=== PATIENT | male | born 1965 | race Caucasian/White ===

== ENCOUNTER 2016-11-03 03:30 | Inpatient (IN) ==
[2016-11-03 04:03] LABS: Basophils # 0.1 K/mcL (0.0-0.2); Basophils % 0.6 %; Eosinophils # 0.4 K/mcL (0.0-0.6); Eosinophils % 4.3 %; Hematocrit 32.7 % (37.5-50.1); Hemoglobin 10.5 g/dL (12.9-16.9); Immature Granulocytes % 0.5 % (0-4); Lymphocytes # 4.4 K/mcL (0.6-4.6); Lymphocytes % 45.8 %; Mean Corpuscular HGB Conc 32.1 g/dL (31.6-35.5); Mean Corpuscular Hemoglobin 29.7 pg (28.0-33.3); Mean Corpuscular Volume 92.4 fL (83.0-100.0); Mean Platelet Volume 9.4 fL (9.4-12.4); Monocytes # 0.6 K/mcL (0.0-1.3); Monocytes % 6.1 %; Neutrophils # 4.1 K/mcL (1.6-8.9); Platelet Count 375 K/mcL (140-400); Red Blood Count 3.54 M/mcL (4.19-5.50); Red Cell Distribution Width 14.6 % (11.5-14.5); Segmented Neutrophils % 42.7 %
--- NOTE | 2016-11-03 04:04 | Emergency Department Note ---
Disposition Clinical Impression: Acute on chronic respiratory failure Qualifiers: Respiratory failure complication: hypoxia and hypercapnia Qualified Code(s): J96.21 - Acute and chronic respiratory failure with hypoxia Disposition: Admitted As Inpatient SOB HPI - General Chief Complaint: ED Shortness of Breath/Dyspnea Stated Complaint: ANNETTA Time Seen by Provider: 11/03/16 03:48 Source: EMS Nursing Notes Reviewed: Yes Vital Signs Reviewed: Yes - History of Present Illness Mr. Castro, a 51yo male, presents from home via EMS with chief complaint difficulty breathing. Patient has known history of end-stage renal disease on dialysis scheduled MWF, COPD, CHF. Patient missed his Friday dialysis session. States his difficulty breathing began Friday and rapidly progressed to his presentation today. Patient denies any other symptoms, concerns, or complaints at this time. Denies fever, chills, unusual cough, chest pain, palpitations, abdominal pain, changes in bowel or bladder. He does not measure his weight daily but has not noticed any increase in swelling. PMH: Stage renal disease on dialysis schedule Friday, Friday, Friday; still produces urine. CHF with EF 45-50%. CAD with severe three-vessel disease; was recommended to follow up with [facility] which he is not done. History of chronically elevated troponin. Hypertension. 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 - Related Data Home Medications Medication Instructions Recorded Confirmed Albuterol Neb [Proventil Neb] 2.5 mg IH TID PRN 10/02/15 08/22/16 Albuterol Sulfate [Proair 2 puff IH Q4H PRN 10/02/15 08/22/16 Respiclick] Calcitriol [Rocaltrol] 0.25 mcg PO DAILY 10/02/15 08/22/16 Citalopram [CeleXA] 40 mg PO DAILY 10/02/15 08/22/16 Ferrous Sulfate 325 mg PO DAILY 10/02/15 10/04/16 Fluticasone Propionate Nasal 50 mcg NS BID 10/02/15 10/04/16 [Flonase] Fluticasone/Salmeterol [Advair 1 each IH BID 10/02/15 10/04/16 250-50 Diskus] Furosemide [Lasix] 40 mg PO BID 10/02/15 10/04/16 Hydroxyzine HCl 25 mg PO TID 10/02/15 08/22/16 Lidocaine Patch [Lidoderm 5% patch] 1 each TP PRN PRN 10/02/15 10/04/16 Metolazone [Zaroxolyn] 2.5 mg PO DAILY 10/02/15 08/22/16 Venlafaxine XR (24 HR) [Effexor XR] 150 mg PO DAILY 10/02/15 08/22/16 Aspirin 325 mg PO DAILY 10/04/16 10/04/16 Ferrous Sulfate [Iron] 325 mg PO DAILY 10/04/16 10/04/16 Gabapentin [Neurontin] 800 mg PO TID 10/04/16 10/04/16 Previous Rx's Medication Instructions Recorded Sevelamer [Renvela] 2,400 mg PO TIDWM #90 tablet 08/30/16 Atorvastatin [Lipitor] 80 mg PO HS #30 tablet 09/03/16 Carvedilol [Coreg] 12.5 mg PO BIDWM #60 tablet 09/03/16 HydrALAZINE 75 mg PO Q8HR #30 tablet 09/03/16 Isosorbide MONOnitrate (24 HR) 30 mg PO DAILY #30 tab.er.24h 09/03/16 [Imdur] Allergies Allergy/AdvReac Type Severity Reaction Status Date / Time prednisone AdvReac Vomiting Verified 10/04/16 08:30 All systems ED: reviewed and negative except as stated. Constitutional: Denies: fever, chills, weakness ENT ED: Denies: throat pain, congestion Cardiovascular: Reports: dyspnea on exertion. Denies: chest pain, palpitations , edema, syncope Respiratory: Reports: cough, dyspnea. Denies: wheezes, hemoptysis, stridor Gastrointestinal: Denies: abdominal pain, nausea, vomiting, diarrhea, constipation, hematemesis, melena, hematochezia Neurological: Denies: headache, weakness, numbness, paresthesias, confusion Past Medical History - Past Medical History Medical history: Reports: CHF, COPD, hyperlipidemia, hypertension, renal disease , other Surgical history: Reports: non-contributory Psychiatric history: Reports: bipolar - Social History Smoking Status: Current every day smoker Smokeless Tobacco Status: Yes Alcohol use: Reports: occasionally Drug use: Reports: marijuana Physical Exam General: Patient is alert, oriented, and in acute respiratory distress. Patient appears older than stated age. HEENT: No facial asymmetry. Head is normocephalic and atraumatic. Trachea midline. Cardiovascular: Heart regular rate and rhythm without clicks, rubs, gallops, or murmurs. No JVD. PMI nondisplaced. Respiratory: On BiPAP-Symmetric chest rise with good respiratory effort. Bilateral breath sounds have scattered wheezing without rhonchi or rales. Abdomen: Bowel sounds present normoactive x-4 quadrants. Abdomen is soft, nondistended, and nontender. No organomegaly noted. Psych: Patient's affect is appropriate for situation. - General General appearance: in distress Course Course Narrative: On arrival, the patient was on nonrebreather interests for his stress as evidenced by him being diaphoretic with use of accessory muscles. Respiratory was paged and is placed on BiPAP with subsequent improvement in symptoms. He was recently admitted 10/04 for dyspnea secondary to missed dialysis, managed with BiPAP and dialysis, discharged 10/07. Per nursing, he was recently intubated. Per respiratory therapy, he typically pulls through on BiPAP without the need for intubation. Vital Signs Temperature 94.7 F L 11/03/16 03:36 Pulse Rate 139 11/03/16 03:36 Respiratory Rate 30 11/03/16 03:36 Blood Pressure 201/113 11/03/16 03:36 O2 Sat by Pulse Oximetry 93 L 11/03/16 03:36 Temperature 94.7 F L 11/03/16 03:36 Pulse Rate 84 11/03/16 05:16 Respiratory Rate 20 11/03/16 05:52 Blood Pressure 147/90 11/03/16 05:52 O2 Sat by Pulse Oximetry 98 11/03/16 06:31 Oxygen Delivery Oxygen Delivery Bipap Shortness of Breath/Dyspnea - Medical Records Medical records reviewed: Yes I reviewed the patient's medical records. - Lab Data Lab results reviewed: Yes I reviewed the patient's lab results. Result diagrams: 11/03/16 03:46 11/03/16 03:46 Lab Results 11/03/16 11/03/16 11/03/16 Range/Units 03:46 03:46 03:46 WBC 9.6 (4.3-11.1) K/mcL RBC 3.54 L (4.19-5.50) M/mcL Hgb 10.5 L (12.9-16.9) g/dL Hct 32.7 L (37.5-50.1) % MCV 92.4 (83.0-100.0) fL MCH 29.7 (28.0-33.3) pg MCHC 32.1 (31.6-35.5) g/dL RDW 14.6 H (11.5-14.5) % Plt Count 375 (140-400) K/mcL MPV 9.4 (9.4-12.4) fL Immature Gran % 0.5 (0-4) % Seg Neutrophils % 42.7 % Lymphocytes % 45.8 % Monocytes % 6.1 % Eosinophils % 4.3 % Basophils % 0.6 % Neutrophils # 4.1 (1.6-8.9) K/mcL Lymphocytes # 4.4 (0.6-4.6) K/mcL Monocytes # 0.6 (0.0-1.3) K/mcL Eosinophils # 0.4 (0.0-0.6) K/mcL Basophils # 0.1 (0.0-0.2) K/mcL ABG pH (7.32-7.45) pH Units ABG pCO2 (35-45) mmHg ABG pO2 (85-104) mmHg ABG HCO3 (21-27) mEQ/L ABG Total CO2 (20-26) mEq/L ABG O2 Saturation (95-98) % ABG Base Excess (-2.0 to 3.0) mEq/L Blood Gas Modality Inspired O2 % Inspiratory BiPAP cm H2O Expiratory BiPAP cm H2O Sodium 134 L (136-145) mEq/L Potassium 4.3 (3.5-4.5) mEq/L Chloride 100 (98-109) mEq/L Carbon Dioxide 20 (19-29) mEq/L BUN 32 H (8-26) mg/dL Creatinine 3.68 H (0.72-1.25) mg/dL Est GFR ( Amer) 21 L (> 60) Est GFR (Non-Af Amer) 18 L (> 60) BUN/Creatinine Ratio 9 (6-26) Glucose 155 H (70-99) mg/dL POC Glucose (58-89) Calculated Osmolality 288 (280-300) Calcium 8.9 (8.6-10.8) mg/dL Troponin I 0.04 H* (0-0.03) ng/mL B-Natriuretic Peptide (0-100) pg/mL 11/03/16 11/03/16 11/03/16 Range/Units 03:46 03:57 04:55 WBC (4.3-11.1) K/mcL RBC (4.19-5.50) M/mcL Hgb (12.9-16.9) g/dL Hct (37.5-50.1) % MCV (83.0-100.0) fL MCH (28.0-33.3) pg MCHC (31.6-35.5) g/dL RDW (11.5-14.5) % Plt Count (140-400) K/mcL MPV (9.4-12.4) fL Immature Gran % (0-4) % Seg Neutrophils % % Lymphocytes % % Monocytes % % Eosinophils % % Basophils % % Neutrophils # (1.6-8.9) K/mcL Lymphocytes # (0.6-4.6) K/mcL Monocytes # (0.0-1.3) K/mcL Eosinophils # (0.0-0.6) K/mcL Basophils # (0.0-0.2) K/mcL ABG pH 7.34 (7.32-7.45) pH Units ABG pCO2 43 (35-45) mmHg ABG pO2 55 L (85-104) mmHg ABG HCO3 23.2 (21-27) mEQ/L ABG Total CO2 24.5 (20-26) mEq/L ABG O2 Saturation 86 L (95-98) % ABG Base Excess -2.6 L (-2.0 to 3.0) mEq/L Blood Gas Modality [id number] Inspired O2 40.0 % Inspiratory BiPAP 14.0 cm H2O Expiratory BiPAP 7.0 cm H2O Sodium (136-145) mEq/L Potassium (3.5-4.5) mEq/L Chloride (98-109) mEq/L Carbon Dioxide (19-29) mEq/L BUN (8-26) mg/dL Creatinine (0.72-1.25) mg/dL Est GFR ( Amer) (> 60) Est GFR (Non-Af Amer) (> 60) BUN/Creatinine Ratio (6-26) Glucose (70-99) mg/dL POC Glucose 97 H (58-89) Calculated Osmolality (280-300) Calcium (8.6-10.8) mg/dL Troponin I (0-0.03) ng/mL B-Natriuretic Peptide 1393 H (0-100) pg/mL - EKG Data EKG attestation: Yes I reviewed and interpreted this EKG. EKG results narrative: EKG dated 11/03/16 at 03:41 showing sinus tachycardia with a rate of 110. Normal intervals. Normal axis. Nonspecific ST-T changes. Compared to previous dated 10/04/2016 at 04:04 which shows atrial fibrillation with RVR; rate of 144. Unable to compare for any ischemic changes. Critical Care Time Critical Care Time: Yes Total Critical Care Time: 35 Attestation: Critical care performed: Time is exclusive of separately billable procedures. Time includes: direct patient care, patient reassessment, coordination of patient care, interpretation of data (laboratory data, radiology data, and respiratory data), review of patient's medical records, medical consultation and documentation of patient care. Procedures included in critical care time: Procedures excluded from critical care time: Attestation Statement - Attestation Attestation: I, Chava Erazo MD, personally performed a history and physical exam of the patient and discussed their management with the resident. I reviewed the resident's note and agree with the documented findings, medical decision making , and plan of care. 51-year-old male presents to the emergency department by an illness with severe respiratory distress. Patient has history of end-stage renal disease and is on hemodialysis. He has been seen here previously with similar episodes of acute respiratory distress and respiratory failure. Patient arrived on a nonrebreather mask with oxygen saturations in the area. He is diaphoretic. On examination patient is a well-developed well-nourished male in severe respiratory distress. He is pale and diaphoretic. He is alert. Breast sounds are markedly decreased bilaterally with diffuse bilateral rales. Some late expiratory wheezes. Heart tachycardic and regular. Abdomen soft with normal bowel sounds. In the emergency department the patient was immediately placed on BiPAP with improvement in his symptoms. Labs reviewed. Chest x-ray showed mild pulmonary edema. The hospitalist, Dr. Rosario, was consulted and accepted admission of the patient.
[2016-11-03 04:17] LABS: Calcium 8.9 mg/dL (8.6-10.8); Potassium 4.3 mEq/L (3.5-4.5)
[2016-11-03 04:21] LABS: ABG Base Excess -2.6 mEq/L (-2.0 to 3.0); ABG HCO3 23.2 mEQ/L (21-27); ABG Oxygen Saturation 86 % (95-98); ABG PCO2 43 mmHg (35-45); ABG PH 7.34 pH Units (7.32-7.45); ABG PO2 55 mmHg (85-104); ABG TCO2 24.5 mEq/L (20-26)
[2016-11-03] MEDS ORDERED: Ondansetron 4 MG/2 ML VIAL IVP PRN (06:19)
[2016-11-03] MEDS ORDERED: Acetaminophen 325 MG TABLET PO PRN (06:19)
[2016-11-03] MEDS ORDERED: Naloxone 0.4 MG/ML INJ IVP PRN (06:19)
[2016-11-03] MEDS ORDERED: *HR* Morphine 2 MG/ML SYRINGE IVP PRN (06:19)
[2016-11-03] MEDS ORDERED: Benzonatate 100 MG CAPSULE PO PRN (06:28)
[2016-11-03] MEDS ORDERED: Albuterol 2.5 MG/3 ML NEBULIZER IH PRN (06:28)
[2016-11-03] MEDS ORDERED: methylPREDNISolone 125 MG/2 ML VIAL IVP STA (06:28)
--- NOTE | 2016-11-03 06:40 | Internal Med History&Physical ---
Date of Encounter: 11/03/16 Time of Encounter: 06:00 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 Plan (1) Acute exacerbation of chronic obstructive pulmonary disease (COPD) Current visit: Yes Status: Acute . (2) Toxic metabolic encephalopathy Current visit: Yes Status: Acute . (3) Delirium due to conditions classified elsewhere Current visit: Yes Status: Acute . (4) Accelerated hypertension Current visit: Yes Status: Acute . (5) Ischemia due to increased oxygen demand Current visit: Yes Status: Acute . (6) Demand ischemia of myocardium Current visit: Yes Status: Acute . (7) Non-ST elevation myocardial infarction (NSTEMI) due to mismatch of myocardial oxygen supply and demand Current visit: Yes Status: Acute . (8) Acute on chronic respiratory failure with hypoxia and hypercapnia Current visit: Yes Status: Acute . (9) Elevated troponin I level Current visit: Yes Status: Acute . (10) Hypoalbuminemia Current visit: Yes Status: Chronic . (11) Physical deconditioning Current visit: Yes Status: Chronic . (12) Pleural effusion Current visit: Yes Status: Chronic (13) Systolic CHF, acute on chronic Current visit: Yes Status: Acute . (14) Anemia in chronic kidney disease Current visit: Yes Status: Chronic . (15) CAD (coronary artery disease) Current visit: Yes Status: Chronic . Qualifiers: Coronary Disease-Associated Artery/Lesion type: [place] artery [place] vs. transplanted heart: [place] heart Associated angina: angina presence unspecified Qualified Code(s): I25.10 - Atherosclerotic heart disease of [place] coronary artery without angina pectoris (16) COPD (chronic obstructive pulmonary disease) Current visit: Yes Status: Chronic .. Qualifiers: COPD type: unspecified COPD Qualified Code(s): J44.9 - Chronic obstructive pulmonary disease, unspecified (17) ESRD (end stage renal disease) on dialysis Current visit: Yes Status: Chronic . (18) HTN (hypertension) Current visit: Yes Status: Chronic . Qualifiers: Hypertension type: renovascular hypertension Qualified Code(s): I15.0 - Renovascular hypertension (19) H/O noncompliance with medical treatment, presenting hazards to health Current visit: Yes Status: Acute . (20) DEE (obstructive sleep apnea) Current visit: Yes Status: Chronic . (21) Noncompliance with CPAP treatment Current visit: Yes Status: Chronic . (22) Marijuana use Current visit: Yes Status: Chronic . (23) Chronic pain associated with significant psychosocial dysfunction Current visit: Yes Status: Chronic . Internal Medicine - H&P: HPI Chief complaint: Difficulty in breathing Admitted From: Emergency Dept Plans for Post Hospital Care: Home History of present illness: Mr. Castro is a 51 year old male with significant history of advanced COPD- emphysema, severe 3vessel CAD, isch CMP/syst CHF LVEF 45-50%, ESRD HD dependent (MWF), hypertension, dyslipidemia, and anxiety, bipolar disorder, osteoarthritis , osteopenia, iron deficiency, peripheral neuropathy, chronic pain syndrome/DDD of lumbosacral spine, allergic rhinitis, DEE (CPAP noncompliant), H/O type 2 diabetes mellitus, polysubstance usage (marijuana), nicotine dependency The patient was visited and interviewed and examined. The patient is admitted to the [facility] via the emergency department when he presents from home via EMS services with complaints of difficulty breathing. Patient history is significant for ESRD with hemodialysis dependency (MWF) complicated by advanced COPD and ischemic cardiomyopathy with chronic systolic CHF. Patient missed his scheduled dialysis session on Friday. Reported he began to experience increasing shortness of breath on Friday and rapidly progressed to his presentation to ER as of Friday morning. He is notable for medical treatment noncompliance this includes dietary and fluid restrictions. Reports compliance with his scheduled medications but this cannot be validated. He denies any recreational indiscretions. He is a continued smoker. He denies fevers chills or sweats. Denies chest pain and syncopal or presyncopal complaints abdominal pain and flank pain. Denies any significant changes in bowel or bladder function; he still produces small amounts of urine. He reports a sense of generalized malaise and easy fatigability with dyspnea at rest and increase with activity. Cough is nonproductive. He denies any bleeding events including hemoptysis epistaxis hematemesis melena hematuria. She was similarly admitted for same occurrence of symptoms, October 04 2016, secondary to missed dialysis. He was managed with supplemental oxygen via BiPAP and dialysis with subsequent improvement. Discharged home on 10/07/2016. Findings in ED: Temperature 94.7 pulse 84-139 respirations 20-30 BP 148-201/83 -113 O2 saturation 93-96% on BiPAP. WBC 9.6 hemoglobin 10.5 hematocrit 32.7 platelets 375,000. RDW 14.6. Differential normal. Metabolic panel findings sodium 134 BUN 32 creatinine 3.68 GFR 18 glucose 155 osmolality 288. Troponin 0.04 BNP 1393. Arterial blood gas pH 7.34 PCO2 43 PO2 55 bicarbonate 23.2@86% [id number] FiO2 40% BiPAP. EKG sinus tachycardia. Nonspecific ST-T wave changes. No acute ischemic changes. Portable chest x-ray demonstrates no significant change when compared to September 2016. Right IJ dialysis catheter. Heart borderline enlarged. Hilar opacities compatible with pulmonary edema. Small to moderate right pleural effusion with adjacent airspace disease. Preliminary impression suggest acute on chronic obstructive pulmonary disease exacerbation superimposed on chronic systolic CHF with stable pulmonary vascular congestion and pleural effusion. Localized airspace disease consistent of compressive atelectasis cannot rule out pneumonia. Acute on chronic hypoxic-hypercapnic respiratory failure is noted. Screening studies demonstrate systemic inflammatory response syndrome. Sepsis is not clearly defined at the time of presentation. End-stage renal disease stage V is apparent with volume overload and patient requiring catchup of missed hemodialysis date. Significant high anion gap metabolic acidemia is noted. There is setting the patient is presenting a degree of dependent ischemia with troponin elevation and elevated BNP but without ACS/UA complaints. History is notable for chronic troponin leak due to his ischemic cardio myopathy and ESRD. The patient is mildly encephalopathic consistent with toxic metabolic derangements with associated delirium. He presents at increased risk for further acute clinical decline and morbidity given his presenting concerns, clinical findings, comorbidities and evolving multiorgan derangements. Workup and treatments will progress comprehensively. Cumulative laboratory and radiographic data base was reviewed, considered and discussed. Pertinent ancillary medical records including ECW and PCI documentation, when available, was reviewed and considered. Given the patient's presenting concerns, past medical history, clinical findings and symptoms, he is admitted at this time will undergo further evaluation and disposition. Orders were written as per the computerized physician telephone order supervisor system.......................................................................... .................... Consultative opinion and will be sought as clinical circumstances justify. Consultative request has been submitted to nephrology/dialysis team. Pain management needs will be addressed. Laboratory and radiographic data base will be updated as appropriate. Studies include: Cultures of blood and urine and sputum, cpk, cardiac injury panel, BNP , PT,APTT,D-dimer, metabolic and hematologic panel, magnesium, phosphorus, ionized calcium, thyroid panel, lipid profile, A1c, C-peptide, CRP, sedimentation rate, respiratory infection profile, respiratory virus panel, blood gas, lactic acid, UDS, ammonia, ethanol, UA, coag profile, serologies, etc. Precautions: Aspiration, fall, seizure, delirium protocol/surveillance initiated. Telemetry with continuous hemodynamic monitoring and pulse oximetry initiated. Empiric antibody coverage: Intravenous Rocephin and azithromycin pending culture data. Special studies: CT chest, chest x-ray, telemetry, EKG, echocardiogram. Pulmonary toilet: Incentive spirometry, aerosol bronchodilator, mucolytic, antitussive, supplemental oxygen. Corticosteroid therapy. CPAP/BiPAP supplemental oxygen delivery. Aerosol Mucomyst therapy. Fluid and electrolyte repletion efforts will proceed. Careful attention to fluid balance and renal recovery will be emphasized. Avoidance of nephrotoxic exposure and adverse drug drug interaction in the setting of impaired renal function will be monitored closely. Correction of metabolic and acid base deficits will be emphasized. Acute coronary syndrome protocol/surveillance initiated. ( Aspirin, statin, JOSE E inhibitor, beta harley. When necessary nitrates. When necessary morphine. Supplemental oxygen. SQ Heparin.) DVT and PUD prophylaxis initiated: PPI therapy, intermittent pneumatic cuffs/ Teds. Subcutaneous heparin. Early ambulation will be encouraged. Immunization updates recommended. Influenza and pneumococcal vaccinations as part of ongoing preventative healthcare recommendations strongly recommended. Smoking cessation counseling briefly addressed. Patient accepts nicotine substitution during this hospitalization.. Advanced care directive discussion briefly addressed. Patient does not declare any healthcare restrictions at this time. Cardiovascular risk appraisal and cardiovascular risk reduction efforts will be emphasized. Physical and occupational therapy may be consulted to evaluate/assess patient's functional capacity and progress mobility if circumstances justify. (Sliding scale, basal and nutritional insulin coverage, ADA/renal dietary restraint and schedule an as-needed basis fingerstick glucose assessments may be initiated. Patient apparently has not required ongoing pension for diabetes mellitus poorly controlled the blood sugars since initiation of dialysis. Before meals and at bedtime Accu-Cheks will be monitored as part of ongoing surveillance.). Nutrition/diabetes education counseling may be considered as circumstances permit. Outpatient medication schedules will be reviewed confirmed and facilitated as appropriate. Reconciliation of home treatments including adjustments, substitutions and reintroduction into the treatment regimen will address necessary maintenance therapies for chronic pre-existing medical conditions. Plan of care has been reviewed and discussed in detail with the patient. Questions addressed. executive services administrator/case management consultation will be requested to assist in discharge planning needs. This may include but not be limited to home health assist, personal lines account executive, etc.. Hospital course will depend upon collective clinical findings, treatment response and potential consultative interventions. Patient is at risk for further acute clinical decline and morbidity due to his presenting chief complaints, clinical findings and comorbidities in the setting of evolving multiorgan derangements. Condition is serious. Prognosis is guarded. CODE STATUS is full. Past Med Surg Social Fam HX - Past Medical History Source: old records reviewed Medical history: arthritis, CHF, COPD, coronary artery disease, dialysis, GERD, hyperlipidemia, hypertension, myocardial infarction, osteoporosis, peripheral artery disease, renal disease, other Psychiatric history: anxiety, bipolar, depression, other - Past Surgical History Surgical History: non-contributory, vascular surgery, other - Social History Smoking Status: Current every day smoker Smokeless Tobacco Status: Yes Alcohol use: occasionally Drug use: marijuana, other Occupational status: unemployed Current living situation: Home - Independent Activity Level: Independent ambulation, Mostly sedentary Recent Out of Country Travel Within the Last 8 Weeks: No Exposure or Possible Exposure to Illness During Travel: No - Family History Mother Hx Family Cardiac Disorders: Yes Father Hx Family Cardiac Disorders: Yes Internal Medicine - H&P: Meds Albuterol Neb [Proventil Neb] 2.5 mg IH TID PRN 10/02/15 [History] Albuterol Sulfate [Proair Respiclick] 2 puff IH Q4H PRN 10/02/15 [History] Calcitriol [Rocaltrol] 0.25 mcg PO DAILY 10/02/15 [History] Citalopram [CeleXA] 40 mg PO DAILY 10/02/15 [History] Fluticasone Propionate Nasal [Flonase] 50 mcg NS BID 10/02/15 [History] Fluticasone/Salmeterol [Advair 250-50 Diskus] 1 puff IH BID 10/02/15 [History] Furosemide [Lasix] 40 mg PO BID 10/02/15 [History] Hydroxyzine HCl 25 mg PO TID 10/02/15 [History] Lidocaine Patch [Lidoderm 5% patch] 1 patch TP DAILY 10/02/15 [History] Sevelamer [Renvela] 2,400 mg PO TIDWM #90 tablet 08/30/16 [Rx] Isosorbide MONOnitrate (24 HR) [Imdur] 30 mg PO DAILY #30 tab.er.24h 09/03/16 [ Rx] Aspirin 81 mg PO DAILY 10/04/16 [History] Ferrous Sulfate [Iron] 325 mg PO DAILY 10/04/16 [History] Gabapentin [Neurontin] 800 mg PO TID 10/04/16 [History] Capsaicin/Me-Salicylate/Menth [Ziks Arthritis Pain Relief] 1 appl TP TID [History] Carvedilol [Coreg] 6.25 mg PO BID 11/03/16 [History] Ergocalciferol (VITAMIN D2) [Vitamin D2] 50,000 unit PO QWEEK 11/03/16 [History] HYDROcodone/Acet 5/325 mg [[place] 5-325 mg] 1 tab PO Q6H PRN 11/03/16 [History] Lisinopril [Zestril] 10 mg PO DAILY 11/03/16 [History] Simvastatin [Zocor] 40 mg PO HS 11/03/16 [History] Tizanidine HCl [Zanaflex] 4 mg PO TID 11/03/16 [History] Allergies potassium Adverse Reaction (Verified 11/03/16 14:08) Vomiting prednisone Adverse Reaction (Verified 10/04/16 08:30) Vomiting All Systems PM: A 10-system review of systems was performed and is negative for pertinent findings except as documented above in the HPI. - Constitutional Constitutional: as per HPI, malaise, no chills, no fever(s), no night sweats - EENT Eyes: as per HPI, no change in vision, no discharge, no pain, no photophobia Ears: as per HPI, no ear discharge, no ear pain, no tinnitus Nose, mouth and throat: as per HPI, no dysphagia, no nasal discharge, no neck pain, no sore throat - Cardiovascular Cardiovascular ROS IM: as per HPI, no chest pain, no diaphoresis, no dyspnea, no lightheadedness, no palpitations, no syncope - Respiratory Respiratory: as per HPI, dyspnea, dyspnea on exertion, wheezing, chest congestion, other, no cough, no excessive phlegm production - Gastrointestinal Gastrointestinal: as per HPI, no abdominal pain, no diarrhea, no hematemesis, no hematochezia, no melena, no nausea, no vomiting - Genitourinary Genitourinary ROS male: as per HPI - Musculoskeletal Musculoskeletal ROS IM: as per HPI, no numbness, no tingling - Integumentary Integumentary IM: as per HPI, no rash, no unusual bruising - Neurological Neurological ROS: as per HPI, no confusion, no convulsions, no focal weakness, no numbness, no tingling, no tremor(s) - Psychiatric Psychiatric: as per HPI - Endocrine Endocrine IM: as per HPI - Hematologic/Lymphatic Hematologic/Lymphatic: as per HPI, no easy bruising - Allergic/Immunologic Allergic/Immunologic: as per HPI - Constitutional Vitals: Temp Pulse Resp BP Pulse Ox 94.7 F L 84 20 147/90 98 11/03/16 03:36 11/03/16 05:16 11/03/16 05:52 11/03/16 05:52 11/03/16 06:31 General appearance: Present: cooperative, disheveled, A&O X 3, obese, severe distress - Head Head exam: Present: atraumatic, normocephalic - Eye Eye exam: Present: EOMI, PERRL, conjuntiva pink, sclera anicteric Pupils: Present: normal accommodation, PERRL - ENT ENT exam: Present: mucous membranes dry, normal oropharynx - Neck Neck exam general surgery: Present: full ROM, supple, trachea midline. Absent: lymphadenopathy, tenderness, nuchal rigidity - Respiratory Respiratory exam: Present: chest wall tenderness, decreased breath sounds, prolonged expiratory phase, respiratory distress, rhonchi, wheezes, tachypnea. Absent: accessory muscle use, rales, stridor - Cardiovascular Cardiovascular exam: Present: distant heart sounds, RRR, +S1, +S2, tachycardia. Absent: diastolic murmur, gallop, rubs, systolic murmur - GI/Abdominal GI/Abdominal exam: Present: diminished bowel sounds, soft, no peritoneal signs. Absent: distended, tenderness - Extremities Exam Extremities exam: Present: full ROM, warm, radial pulses palpable and symetrical. Absent: calf tenderness, cyanotic, pedal edema - Neurological Exam Neurological exam: Present: alert, altered, CN II-XII intact, oriented X3, no focal deficits. Absent: pronater drift, facial droop, speech deficit - Psychiatric Psychiatric exam: Present: anxious, normal affect, normal mood - Skin Skin exam: Present: dry, intact, warm. Absent: petechiae, rash, urticaria, vesicles Internal Med - H&P Results - Labs CBC & Chem 7: 11/03/16 03:46 11/03/16 03:46 - Impressions Vital Signs Temp Pulse Resp BP Pulse Ox 11/03/16 06:31 98 11/03/16 06:17 98 11/03/16 05:52 20 147/90 11/03/16 05:50 21 96 11/03/16 05:16 84 20 148/83 96 11/03/16 04:13 95 15 168/98 95 11/03/16 04:11 95 11/03/16 03:46 108 19 156/85 96 11/03/16 03:37 36 100 11/03/16 03:36 94.7 F L 139 30 201/113 93 L Intake and Output 11/02/16 11/02/16 11/03/16 15:59 23:59 07:59 Intake Total 0 / 0 Balance 0 / 0 Intake: Oral 0 / 0 Other: Weight 73.936 kg Blood Glucose* 97 Patient Weight 11/03/16 23:59 Weight 73.936 kg Short CBC 11/03/16 Range/Units 03:46 WBC 9.6 (4.3-11.1) K/mcL Hgb 10.5 L (12.9-16.9) g/dL Hct 32.7 L (37.5-50.1) % Plt Count 375 (140-400) K/mcL Neutrophils # 4.1 (1.6-8.9) K/mcL BMP 11/03/16 Range/Units 03:46 Sodium 134 L (136-145) mEq/L Potassium 4.3 (3.5-4.5) mEq/L Chloride 100 (98-109) mEq/L Carbon Dioxide 20 (19-29) mEq/L BUN 32 H (8-26) mg/dL Creatinine 3.68 H (0.72-1.25) mg/dL Glucose 155 H (70-99) mg/dL Calcium 8.9 (8.6-10.8) mg/dL Cardiac Enzymes 11/03/16 Range/Units 03:46 Troponin I 0.04 H* (0-0.03) ng/mL 11/03/16 03:57 ABG pH 7.34 ABG pCO2 43 ABG pO2 55 L ABG HCO3 23.2 ABG Total CO2 24.5 ABG O2 Saturation 86 L ABG Base Excess -2.6 L Abnormal lab results RBC 3.54 M/mcL (4.19-5.50) L 11/03/16 03:46 Hgb 10.5 g/dL (12.9-16.9) L 11/03/16 03:46 Hct 32.7 % (37.5-50.1) L 11/03/16 03:46 RDW 14.6 % (11.5-14.5) H 11/03/16 03:46 ABG pO2 55 mmHg (85-104) L 11/03/16 03:57 ABG O2 Saturation 86 % (95-98) L 11/03/16 03:57 ABG Base Excess -2.6 mEq/L (-2.0 to 3.0) L 11/03/16 03:57 Sodium 134 mEq/L (136-145) L 11/03/16 03:46 BUN 32 mg/dL (8-26) H 11/03/16 03:46 Creatinine 3.68 mg/dL (0.72-1.25) H 11/03/16 03:46 Est GFR ( Amer) 21 (> 60) L 11/03/16 03:46 Est GFR (Non-Af Amer) 18 (> 60) L 11/03/16 03:46 Glucose 155 mg/dL (70-99) H 11/03/16 03:46 POC Glucose 97 (58-89) H 11/03/16 04:55 Troponin I 0.04 ng/mL (0-0.03) H* 11/03/16 03:46 B-Natriuretic Peptide 1393 pg/mL (0-100) H 11/03/16 03:46 Allergies Allergy/AdvReac Type Severity Reaction Status Date / Time prednisone AdvReac Vomiting Verified 10/04/16 08:30 Laboratory Results WBC 9.6 K/mcL (4.3-11.1) 11/03/16 03:46 RBC 3.54 M/mcL (4.19-5.50) L 11/03/16 03:46 Hgb 10.5 g/dL (12.9-16.9) L 11/03/16 03:46 Hct 32.7 % (37.5-50.1) L 11/03/16 03:46 MCV 92.4 fL (83.0-100.0) 11/03/16 03:46 MCH 29.7 pg (28.0-33.3) 11/03/16 03:46 MCHC 32.1 g/dL (31.6-35.5) 11/03/16 03:46 RDW 14.6 % (11.5-14.5) H 11/03/16 03:46 Plt Count 375 K/mcL (140-400) 11/03/16 03:46 MPV 9.4 fL (9.4-12.4) 11/03/16 03:46 Immature Gran % 0.5 % (0-4) 11/03/16 03:46 Seg Neutrophils % 42.7 % 11/03/16 03:46 Lymphocytes % 45.8 % 11/03/16 03:46 Monocytes % 6.1 % 11/03/16 03:46 Eosinophils % 4.3 % 11/03/16 03:46 Basophils % 0.6 % 11/03/16 03:46 Neutrophils # 4.1 K/mcL (1.6-8.9) 11/03/16 03:46 Lymphocytes # 4.4 K/mcL (0.6-4.6) 11/03/16 03:46 Monocytes # 0.6 K/mcL (0.0-1.3) 11/03/16 03:46 Eosinophils # 0.4 K/mcL (0.0-0.6) 11/03/16 03:46 Basophils # 0.1 K/mcL (0.0-0.2) 11/03/16 03:46 ABG pH 7.34 pH Units (7.32-7.45) 11/03/16 03:57 ABG pCO2 43 mmHg (35-45) 11/03/16 03:57 ABG pO2 55 mmHg (85-104) L 11/03/16 03:57 ABG HCO3 23.2 mEQ/L (21-27) 11/03/16 03:57 ABG Total CO2 24.5 mEq/L (20-26) 11/03/16 03:57 ABG O2 Saturation 86 % (95-98) L 11/03/16 03:57 ABG Base Excess -2.6 mEq/L (-2.0 to 3.0) L 11/03/16 03:57 Blood Gas Modality [id number] 11/03/16 03:57 Inspired O2 40.0 % 11/03/16 03:57 Inspiratory BiPAP 14.0 cm H2O 11/03/16 03:57 Expiratory BiPAP 7.0 cm H2O 11/03/16 03:57 Sodium 134 mEq/L (136-145) L 11/03/16 03:46 Potassium 4.3 mEq/L (3.5-4.5) 11/03/16 03:46 Chloride 100 mEq/L (98-109) 11/03/16 03:46 Carbon Dioxide 20 mEq/L (19-29) 11/03/16 03:46 BUN 32 mg/dL (8-26) H 11/03/16 03:46 Creatinine 3.68 mg/dL (0.72-1.25) H 11/03/16 03:46 Est GFR ( Amer) 21 (> 60) L 11/03/16 03:46 Est GFR (Non-Af Amer) 18 (> 60) L 11/03/16 03:46 BUN/Creatinine Ratio 9 (6-26) 11/03/16 03:46 Glucose 155 mg/dL (70-99) H 11/03/16 03:46 POC Glucose 97 (58-89) H 11/03/16 04:55 Calculated Osmolality 288 (280-300) 11/03/16 03:46 Calcium 8.9 mg/dL (8.6-10.8) 11/03/16 03:46 Troponin I 0.04 ng/mL (0-0.03) H* 11/03/16 03:46 B-Natriuretic Peptide 1393 pg/mL (0-100) H 11/03/16 03:46 Impressions Chest X-Ray 01/22/17 03:53 IMPRESSION: No significant change from 1 month ago. Small to moderate right pleural effusion with mild pulmonary edema. D/ / Armando Jorge MD / Armando Jorge MD Interpreting Provider: Armando Jorge MD
[2016-11-03 06:59] LABS: INR 1.1; Prothrombin Time 11.5 Seconds (9.4-12.1)
[2016-11-03 07:02] LABS: Activated Partial Thrombo Time 33.4 Seconds (26.0-36.0)
[2016-11-03 07:06] LABS: Phosphorous 6.4 mg/dL (2.3-4.7)
[2016-11-03 07:09] LABS: Ionized Calcium 1.12 mmol/L (1.15-1.35)
[2016-11-03 07:13] LABS: Ethanol < 10 mg/dL (0-10)
[2016-11-03 07:51] LABS: C-Reactive Protein 54 mg/L (Less than 5)
[2016-11-03] MEDS: Nicotine 21 MG PATCH.TD24 TD SCH (08:50)
[2016-11-03] MEDS: Venlafaxine XR (24 HR) 150 MG CAP.ER.24H PO SCH (08:50)
[2016-11-03] MEDS: Aspirin 325 MG TABLET PO SCH (08:50)
[2016-11-03] MEDS: Doxycycline 100 MG CAPSULE PO SCH ×2 (08:50→19:44)
[2016-11-03] MEDS: Furosemide 40 MG TABLET PO SCH ×2 (08:51→19:44)
[2016-11-03] MEDS: hydrOXYzine pamoate 25 MG CAPSULE PO SCH ×3 (08:51→19:44)
[2016-11-03] MEDS: metOLazone 2.5 MG TABLET PO SCH (08:51)
[2016-11-03] MEDS: hydrALAZINE 25 MG TABLET PO SCH ×3 (08:51→23:25)
[2016-11-03] MEDS: Isosorbide MONOnitrate (24 HR) 30 MG TAB.ER.24H PO SCH (08:51)
--- NOTE | 2016-11-03 09:39 | Nephrology Consult Note ---
Date of Encounter: 11/03/16 Time of Encounter: 09:30 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 Plan (1) Accelerated hypertension Current Visit: Yes Status: Acute Likely related to non-adherence to medical therapy and/or stress of respiratory distress. His blood pressure is better this am. Continue home medications and he will receive ultrafiltration with dialysis on Friday. (2) Acute exacerbation of chronic obstructive pulmonary disease (COPD) Current Visit: Yes Status: Acute Per the primary team. Agree with bronchodilators, steroids, and antibiotics. Seems to be improving. Patient improved off bipap. (3) Acute on chronic respiratory failure Current Visit: Yes Status: Acute Improved with bipap and treatment of the underlying condition. Qualifiers: Respiratory failure complication: hypoxia and hypercapnia Qualified Code(s) : J96.21 - Acute and chronic respiratory failure with hypoxia; J96.22 - Acute and chronic respiratory failure with hypercapnia (4) Elevated troponin I level Current Visit: Yes Status: Acute Likely related to renal disease. Patient denies chest pain. Will defer to primary team. (5) Anemia in chronic kidney disease Current Visit: Yes Status: Chronic Check iron stores, vitamin b12 and folate in am. Monitor for bleeding. (6) ESRD (end stage renal disease) on dialysis Current Visit: Yes Status: Chronic HD MWF with a history of nonadherance to medical therapy. Last HD Friday, but patient with residual kidney function and does not appear to need emergent renal replacement therapy today. Plan to perform HD Friday either on an inpatient or outpatient basis depending on whether or not the patient is still in the hospital. Hyperphosphatemia - continue phosphate binders and renal diet. vitamin D deficiency - check level in am Adjust medications for renal function. If patient remains in the hospital I plan to perform dialysis Friday. If he is discharged he can receive dialysis in his home unit. Thank you for the consult. Call with questions. History of Present Illness - Reason for Consult Consult date: 11/03/16 end stage renal disease - Chief Complaint ESRD - History of Present Illness Mr. Castro is a 51 yo man with a history of COPD and ESRD who presents to [facility] for the evaluation of shortness of breath. He denies chest pain , fever, wheezing or coughing. He reports that this seems like past episodes of when his COPD has flared. He wears 2-2.5 liter of oxygen at night and increased that this morning without resolution. He then came to the hospital. The patient is on dialysis MWF at [place], [place] under the direction of [facility] (Dr. Preciado). He has a right IJ tunneled catheter and his last dialysis was Friday10/30/2016. Past Med Surg Social Fam HX - Past Medical History Medical history: CHF, COPD, hyperlipidemia, hypertension, renal disease, other Psychiatric history: bipolar - Past Surgical History Surgical History: non-contributory - Social History Smoking Status: Current every day smoker Smokeless Tobacco Status: Yes Alcohol use: occasionally Drug use: marijuana - Family History Mother Hx Family Cardiac Disorders: Yes Father Hx Family Cardiac Disorders: Yes Medications and Allergies Albuterol Neb [Proventil Neb] 2.5 mg IH TID PRN 10/02/15 [History] Albuterol Sulfate [Proair Respiclick] 2 puff IH Q4H PRN 10/02/15 [History] Calcitriol [Rocaltrol] 0.25 mcg PO DAILY 10/02/15 [History] Citalopram [CeleXA] 40 mg PO DAILY 10/02/15 [History] Ferrous Sulfate 325 mg PO DAILY 10/02/15 [History] Fluticasone Propionate Nasal [Flonase] 50 mcg NS BID 10/02/15 [History] Fluticasone/Salmeterol [Advair 250-50 Diskus] 1 each IH BID 10/02/15 [History] Furosemide [Lasix] 40 mg PO BID 10/02/15 [History] Hydroxyzine HCl 25 mg PO TID 10/02/15 [History] Lidocaine Patch [Lidoderm 5% patch] 1 each TP PRN PRN 10/02/15 [History] Metolazone [Zaroxolyn] 2.5 mg PO DAILY 10/02/15 [History] Venlafaxine XR (24 HR) [Effexor XR] 150 mg PO DAILY 10/02/15 [History] Sevelamer [Renvela] 2,400 mg PO TIDWM #90 tablet 08/30/16 [Rx] Atorvastatin [Lipitor] 80 mg PO HS #30 tablet 09/03/16 [Rx] Carvedilol [Coreg] 12.5 mg PO BIDWM #60 tablet 09/03/16 [Rx] HydrALAZINE 75 mg PO Q8HR #30 tablet 09/03/16 [Rx] Isosorbide MONOnitrate (24 HR) [Imdur] 30 mg PO DAILY #30 tab.er.24h 09/03/16 [ Rx] Aspirin 325 mg PO DAILY 10/04/16 [History] Ferrous Sulfate [Iron] 325 mg PO DAILY 10/04/16 [History] Gabapentin [Neurontin] 800 mg PO TID 10/04/16 [History] Allergies prednisone Adverse Reaction (Verified 10/04/16 08:30) Vomiting Review of Systems All Systems: reviewed and no additional remarkable complaints except as stated ( as documented in the HPI.) Exam - Vital Signs Vital signs: Initial Vital Signs Temp Pulse Resp BP Pulse Ox 94.7 F L 139 30 201/113 93 L 11/03/16 03:36 11/03/16 03:36 11/03/16 03:36 11/03/16 03:36 11/03/16 03:36 Vital Signs - Last 8 Hours Resp BP Pulse Ox 11/03/16 08:53 100 11/03/16 06:31 98 11/03/16 06:17 98 11/03/16 05:52 20 147/90 11/03/16 05:50 21 96 Intake and Output 11/02/16 11/03/16 11/03/16 23:59 07:59 15:59 Intake Total 0 / 0 Balance 0 / 0 Intake: Oral 0 / 0 - General Appearance General appearance: well-developed, well-nourished, chronically ill EENT: ATNC Neck: supple Respiratory: course breath sounds Cardiology: edema, regular rate, regular rhythm - Dialysis Access Dialysis Vascular Access: Venous Catheter (Right IJ tunneled catheter.) Gastrointestinal: normoactive bowel sounds, no tenderness Integumentary: warm and dry Neurologic: alert and oriented x3 Musculoskeletal: no cyanosis Psychiatric: mood/affect appropriate Results - Lab Results 11/03/16 03:46 11/03/16 03:46 Most recent lab results ABG pH 7.34 pH Units (7.32-7.45) 11/03/16 03:57 ABG pCO2 43 mmHg (35-45) 11/03/16 03:57 ABG pO2 55 mmHg (85-104) L 11/03/16 03:57 ABG HCO3 23.2 mEQ/L (21-27) 11/03/16 03:57 ABG O2 Saturation 86 % (95-98) L 11/03/16 03:57 Calcium 8.9 mg/dL (8.6-10.8) 11/03/16 03:46 Phosphorus 6.4 mg/dL (2.3-4.7) H 11/03/16 06:38 Magnesium 2.0 mg/dL (1.6-2.6) 11/03/16 06:38 Consult Discharge Plan - Plan Referrals: NO,PCP [Primary Care Provider] -
[2016-11-03] MEDS: Ipratropium/Albuterol Neb 3 ML IH SCH ×3 (11:07→23:01)
[2016-11-03] MEDS: MethylPREDNISolone 40 MG/ML VIAL IVP SCH ×3 (12:18→23:25)
[2016-11-03] MEDS: *HR* Heparin 5,000 UNIT/ML VIAL SQ SCH ×3 (12:21→23:25)
[2016-11-03] MEDS: Fluticasone Propionate Nasal 50 MCG/SPRAY BOTTLE NS SCH ×2 (12:49→19:45)
--- NOTE | 2016-11-03 13:40 | Event Note ---
Date of Encounter: 11/03/16 Time of Encounter: 10:00 Pt admitted early this AM after missing dialysis last Friday. He says he is doing better at this time and has no needs. At rest he is mildly dyspneic but not in distress. Appreciate nephrology input - anticipate dialysis tomorrow. Suspect he will be discharged tomorrow after dialysis.
[2016-11-03] MEDS: *HR* OxyCODONE Immed Rel 5 MG TABLET PO PRN (19:49)
[2016-11-03 20:07] LABS: Amphetamine Screen,Urine Negative ng/mL (Cutoff=1000); Barbiturate Screen,Urine Negative ng/mL (Cutoff=200); Benzodiazepines Screen,Urine Negative ng/mL (Cutoff=200); Cannabinoid Screen,Urine Positive ng/mL (Cutoff = 50); Cocaine Screen,Urine Negative ng/mL (Cutoff= 300); Opiate Screen,Urine Positive ng/mL (Cutoff=300); Phencyclidine Screen,Urine Negative ng/mL (Cutoff=25)
[2016-11-04 04:44] LABS: Uric Acid 7.1 mg/dL (3.5-7.2)
[2016-11-04 04:46] LABS: Chol/HDL Ratio 4.4 (0-4.9)
[2016-11-04] MEDS: metOLazone 2.5 MG TABLET PO SCH (05:20)
[2016-11-04] MEDS: Doxycycline 100 MG CAPSULE PO SCH (05:20)
[2016-11-04] MEDS: hydrOXYzine pamoate 25 MG CAPSULE PO SCH ×2 (05:20→13:27)
[2016-11-04] MEDS: Venlafaxine XR (24 HR) 150 MG CAP.ER.24H PO SCH (05:20)
[2016-11-04] MEDS: Nicotine 21 MG PATCH.TD24 TD SCH ×2 (05:21→05:27)
[2016-11-04] MEDS: *HR* Heparin 5,000 UNIT/ML VIAL SQ SCH (05:21)
[2016-11-04] MEDS: Aspirin 325 MG TABLET PO SCH (05:21)
[2016-11-04] MEDS: MethylPREDNISolone 40 MG/ML VIAL IVP SCH ×2 (05:21→13:27)
[2016-11-04 05:22] LABS: Folate 3.6 ng/mL (7.0-31.4)
[2016-11-04] MEDS: Ipratropium/Albuterol Neb 3 ML IH SCH ×2 (05:22→11:49)
[2016-11-04] MEDS: Isosorbide MONOnitrate (24 HR) 30 MG TAB.ER.24H PO SCH (05:22)
[2016-11-04] MEDS: Fluticasone Propionate Nasal 50 MCG/SPRAY BOTTLE NS SCH (05:22)
[2016-11-04] MEDS: Furosemide 40 MG TABLET PO SCH (05:22)
[2016-11-04] MEDS: hydrALAZINE 25 MG TABLET PO SCH (05:22)
[2016-11-04] MEDS ORDERED: 0.9 % Sodium Chloride 250 ML IV PRN (08:42)
--- NOTE | 2016-11-04 12:34 | Nephrology Progress Note ---
Date of Encounter: 11/04/16 Time of Encounter: 12:29 - 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 Plan (1) Accelerated hypertension Current Visit: Yes Status: Acute improved. Continue antihypertensive medication. Adjust medications as needed. (2) Acute exacerbation of chronic obstructive pulmonary disease (COPD) Current Visit: Yes Status: Acute Improved. Patient reports he is back to baseline. (3) Acute on chronic respiratory failure Current Visit: Yes Status: Acute Patient reports he is back to baseline. Qualifiers: Respiratory failure complication: hypoxia and hypercapnia Qualified Code(s) : J96.21 - Acute and chronic respiratory failure with hypoxia; J96.22 - Acute and chronic respiratory failure with hypercapnia (4) Anemia in chronic kidney disease Current Visit: Yes Status: Chronic (5) ESRD (end stage renal disease) on dialysis Current Visit: Yes Status: Chronic HD MWF Patient has right IJ cath. Ok for discharge after dialysis from a renal standpoint. Subjective Principal diagnosis: ESRD Interval history: Patient seen and evaluated. He has no new complaint. Review of systems otherwise stable. He feels his breathing is back to baseline. Objective - Vital Signs Vital signs: Vital Signs Temp Pulse Resp BP Pulse Ox 11/04/16 12:28 128/65 11/04/16 11:45 129/66 11/04/16 11:30 140/71 11/04/16 11:15 160/88 11/04/16 11:00 127/64 11/04/16 10:45 160/88 11/04/16 10:30 156/76 11/04/16 10:15 156/82 11/04/16 10:00 151/78 11/04/16 09:45 98.1 F 20 159/83 11/04/16 08:16 98.1 F 85 16 149/82 95 11/04/16 05:22 24 96 11/04/16 03:26 97.7 F 80 19 161/90 95 11/04/16 00:13 96.8 F L 83 20 165/82 95 11/03/16 23:01 18 93 L 11/03/16 20:00 90 L 11/03/16 18:43 97.8 F 91 16 168/84 90 L 11/03/16 16:18 18 93 L 11/03/16 15:00 83 18 167/102 95 Intake and Output 11/03/16 11/04/16 11/04/16 23:59 07:59 15:59 Intake Total 0 / 0 0 / 0 720 / 720 Output Total 625 / 625 0 / 0 400 / 400 Balance -625 / -625 0 / 0 320 / 320 Intake: Oral 0 / 0 0 / 0 120 / 120 Intake, Rinseback and 600 / 600 Flushes Output: Urine 625 / 625 0 / 0 400 / 400 Other: Meal Breakfast Percent of Meal Consumed 95% # Voids 0 Blood Glucose* 148 Hemodialysis Net Fluid 2660 Removed (mL) - General Appearance General appearance: Present: well-developed, well-nourished EENT: Present: ATNC Neck: Present: supple Respiratory: Present: clear Cardiology: Present: regular rate, regular rhythm Gastrointestinal: Present: normoactive bowel sounds Integumentary: Present: warm and dry Neurologic: Present: alert and oriented x3 Musculoskeletal: Present: no cyanosis Psychiatric: Present: mood/affect appropriate - Lab 11/03/16 03:46 11/03/16 03:46 Most recent lab results ABG pH 7.34 pH Units (7.32-7.45) 11/03/16 03:57 ABG pCO2 43 mmHg (35-45) 11/03/16 03:57 ABG pO2 55 mmHg (85-104) L 11/03/16 03:57 ABG HCO3 23.2 mEQ/L (21-27) 11/03/16 03:57 ABG O2 Saturation 86 % (95-98) L 11/03/16 03:57 Calcium 8.9 mg/dL (8.6-10.8) 11/03/16 03:46 Phosphorus 6.4 mg/dL (2.3-4.7) H 11/03/16 06:38 Magnesium 2.0 mg/dL (1.6-2.6) 11/03/16 06:38 Consult Discharge Plan - Plan Referrals: NO,PCP [Primary Care Provider] -
[2016-11-04 13:08] LABS: Hepatitis B Surface Antibody 0.61 mIU/mL; Hepatitis B Surface Antigen Nonreactive (Nonreactive)
[2016-11-04] MEDS: *HR* OxyCODONE Immed Rel 5 MG TABLET PO PRN (13:27)
[2016-11-04 13:28] VITALS: BP 156/83
--- NOTE | 2016-11-04 14:16 | Discharge Summary ---
Date of Encounter: 11/04/16 Time of Encounter: 14:14 - Discharge Diagnosis (1) Acute on chronic respiratory failure with hypoxia and hypercapnia Priority: Primary Status: Acute (2) Pulmonary edema Priority: Primary Status: Acute Qualifiers: Chronicity: acute Qualified Code(s): J81.0 - Acute pulmonary edema (3) Acute exacerbation of chronic obstructive pulmonary disease (COPD) Priority: Primary Status: Acute (4) Anemia Priority: Secondary Status: Chronic Qualifiers: Anemia type: other cause Other causes of anemia: chronic disease, kidney Qualified Code(s): N18.9 - Chronic kidney disease, unspecified; D63.1 - Anemia in chronic kidney disease (5) HTN (hypertension) Priority: Secondary Status: Chronic Qualifiers: Hypertension type: renovascular hypertension Qualified Code(s): I15.0 - Renovascular hypertension (6) ESRD (end stage renal disease) on dialysis Priority: Secondary Status: Chronic (7) Demand ischemia of myocardium Priority: Secondary Status: Acute (8) Noncompliance Priority: Secondary Status: Chronic - Discharge Medications Prescriptions: Doxycycline 100 mg PO BID #14 capsule HYDROcodone/Acet 5/325 mg [[place] 5-325 mg] 1 tab PO Q6H PRN #15 tablet PRN Reason: Pain MethylPREDNISolone [MethylPREDNISolone Dose Pack] 4 mg PO DAILY #21 tab Metolazone [Zaroxolyn] 2.5 mg PO DAILY #30 tablet Nicotine Patch [Nicoderm] 21 mg TD DAILY #30 patch.td24 Home Medications: Albuterol Neb [Proventil Neb] 2.5 mg IH TID PRN 10/02/15 [History] Albuterol Sulfate [Proair Respiclick] 2 puff IH Q4H PRN 10/02/15 [History] Calcitriol [Rocaltrol] 0.25 mcg PO DAILY 10/02/15 [History] Citalopram [CeleXA] 40 mg PO DAILY 10/02/15 [History] Fluticasone Propionate Nasal [Flonase] 50 mcg NS BID 10/02/15 [History] Fluticasone/Salmeterol [Advair 250-50 Diskus] 1 puff IH BID 10/02/15 [History] Furosemide [Lasix] 40 mg PO BID 10/02/15 [History] Hydroxyzine HCl 25 mg PO TID 10/02/15 [History] Lidocaine Patch [Lidoderm 5% patch] 1 patch TP DAILY 10/02/15 [History] Sevelamer [Renvela] 2,400 mg PO TIDWM #90 tablet 08/30/16 [Rx] Isosorbide MONOnitrate (24 HR) [Imdur] 30 mg PO DAILY #30 tab.er.24h 09/03/16 [ Rx] Aspirin 81 mg PO DAILY 10/04/16 [History] Ferrous Sulfate [Iron] 325 mg PO DAILY 10/04/16 [History] Gabapentin [Neurontin] 800 mg PO TID 10/04/16 [History] Capsaicin/Me-Salicylate/Menth [Ziks Arthritis Pain Relief] 1 appl TP TID [History] Carvedilol [Coreg] 6.25 mg PO BID 11/03/16 [History] Ergocalciferol (VITAMIN D2) [Vitamin D2] 50,000 unit PO QWEEK 11/03/16 [History] Lisinopril [Zestril] 10 mg PO DAILY 11/03/16 [History] Simvastatin [Zocor] 40 mg PO HS 11/03/16 [History] Tizanidine HCl [Zanaflex] 4 mg PO TID 11/03/16 [History] Carvedilol [Coreg] 12.5 mg PO BIDWM tablet 11/04/16 [Rx] Doxycycline 100 mg PO BID #14 capsule 11/04/16 [Rx] HYDROcodone/Acet 5/325 mg [[place] 5-325 mg] 1 tab PO Q6H PRN #15 tablet 11/04/16 [Rx] MethylPREDNISolone [MethylPREDNISolone Dose Pack] 4 mg PO DAILY #21 tab [Rx] Metolazone [Zaroxolyn] 2.5 mg PO DAILY #30 tablet 11/04/16 [Rx] Nicotine Patch [Nicoderm] 21 mg TD DAILY #30 patch.td24 11/04/16 [Rx] Allergies/Adverse Reactions: Allergies potassium Adverse Reaction (Verified 11/03/16 14:08) Vomiting prednisone Adverse Reaction (Verified 10/04/16 08:30) Vomiting Date of admission: 11/04/16 13:10 Primary care physician: PCP NO Consults: Nephrology Discharging clinician: Dylan Caceres Anticipated date of discharge: 11/04/16 - Patient Status Disposition: Home, Self-Care Condition: Fair Functional capacity at discharge: independent ambulation Overall status at discharge: patient is progressing back to baseline - Discharge Instructions Follow Up With: FILIBERTO,PCP [Primary Care Provider] - Additional Instructions: 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 - Diet and Activity Activity: resume usual activities as tolerated Diet: advance to your usual diet Hospital course: Mr. Castro is a 51 year old male with hx of ESRD on hemodialysis presented to ED with worsening dyspnea. He had missed dialysis on Friday. He was evaluated in the ED and admitted for further evaluation and treatment. Mr. Castro was admitted to med surg. He was started on his home medications and continued on oxygen though initially needed higher liters of flow. He was evaluated by renal service and did not need emergent dialysis. He was continued on his home diuretics as well. On the morning of 11/04 he had routine dialysis. He was subsequently feeling at baseline and and was ready to go home He was on his home level of oxygen as well. His son was at bedside and agreed that his father was baseline today. At that time arrangements were made for discharge home and outpatient follow up. - Time Spent with Patient Total time spent providing and/or coordinating discharge services: 42min - Constitutional Vitals: Temp Pulse Resp BP Pulse Ox 98.2 F 89 16 156/83 95 11/04/16 13:24 11/04/16 13:24 11/04/16 13:24 11/04/16 13:24 11/04/16 13:24 General appearance: Present: cooperative, disheveled, A&O X 3, obese, answers questions appropriately - Head Head exam: Present: normocephalic - Eye Eye exam: Present: conjuntiva pink - ENT ENT exam: Present: mucous membranes moist - Respiratory Additional comments: Bibasilar crackles scattered throughout. - Cardiovascular Cardiovascular exam: Present: RRR. Absent: tachycardia - GI/Abdominal GI/Abdominal exam: Present: soft. Absent: tenderness - Extremities Exam Extremities exam: Present: warm. Absent: joint swelling, tenderness - Neurological Exam Neurological exam: Present: alert, oriented X3, no focal deficits - Psychiatric Psychiatric exam: Present: normal affect, normal mood
[2016-11-04] MEDS ORDERED: FLU VACC QS2016-17 36MOS UP/PF 0.5 ML SYRINGE IM ONE (14:55)
--- NOTE | 2016-11-04 17:30 | Electrocardiograph Report ---
[facility] Test Date: 2016-11-03 Pat Name: Steve Castro Department: 103 Room: [id number] Gender: M Pickle Sorter: CANDIS : 1965 Requested By: Willis Hampton Order Number: [id number] Reading MD: Ant Iraheta DO Measurements Intervals [place] Rate: 110 P: 15 CT: 127 QRS: 81 QRSD: 88 T: -4 QT: 321 QTc: 386 Interpretive Statements Sinus tachycardia Nonspecific ST-T changes Electronically Signed On 11-04-16 17:29:35 EST by Ant Iraheta DO
== END 2016-11-04 15:40 | disposition home or self-care (01) | DRG 194 ==
LOC: 2NENU 03:30 → EMEROO 03:30 → 2NENU 05:57
PROVIDERS: ADMIT Internal Medicine; ATTEND Internal Medicine

== ENCOUNTER 2016-11-19 09:02 | Observation (INO) ==
[2016-11-19] MEDS ORDERED: methylPREDNISolone 125 MG/2 ML VIAL IVP ONE (09:08)
[2016-11-19] MEDS ORDERED: Ipratropium/Albuterol Neb 3 ML ONE (09:08)
[2016-11-19] MEDS ORDERED: Ipratropium/Albuterol Neb 3 ML IH ONE (09:08)
--- NOTE | 2016-11-19 09:20 | Emergency Department Note ---
Disposition Clinical Impression: Acute exacerbation of chronic obstructive airways disease, Acute respiratory failure with hypoxemia, ESRD (end stage renal disease) on dialysis Disposition: Admitted As Inpatient Forms: ED Satisfaction Letter SOB HPI - General Chief Complaint: ED Shortness of Breath/Dyspnea Stated Complaint: resp distress Time Seen by Provider: 11/19/16 09:08 Source: EMS Mode of arrival: EMS Nursing Notes Reviewed: Yes Vital Signs Reviewed: Yes - History of Present Illness Pt Subjective Complaint: shortness of breath Onset (ago): hour(s) (1) Context: recent illness (bronchitis) Severity: severe Consistency/Duration: constant Improves with: oxygen Worsens with: nothing - Related Data Home Medications Medication Instructions Recorded Confirmed Albuterol Neb [Proventil Neb] 2.5 mg IH TID PRN 10/02/15 11/03/16 Albuterol Sulfate [Proair 2 puff IH Q4H PRN 10/02/15 11/03/16 Respiclick] Calcitriol [Rocaltrol] 0.25 mcg PO DAILY 10/02/15 11/03/16 Citalopram [CeleXA] 40 mg PO DAILY 10/02/15 11/03/16 Fluticasone Propionate Nasal 50 mcg NS BID 10/02/15 11/03/16 [Flonase] Fluticasone/Salmeterol [Advair 1 puff IH BID 10/02/15 11/03/16 250-50 Diskus] Furosemide [Lasix] 40 mg PO BID 10/02/15 11/03/16 Hydroxyzine HCl 25 mg PO TID 10/02/15 11/03/16 Lidocaine Patch [Lidoderm 5% patch] 1 patch TP DAILY 10/02/15 11/03/16 Aspirin 81 mg PO DAILY 10/04/16 11/03/16 Ferrous Sulfate [Iron] 325 mg PO DAILY 10/04/16 11/03/16 Gabapentin [Neurontin] 800 mg PO TID 10/04/16 11/03/16 Capsaicin/Me-Salicylate/Menth 1 appl TP TID 11/03/16 11/03/16 [Ziks Arthritis Pain Relief] Carvedilol [Coreg] 6.25 mg PO BID 11/03/16 11/03/16 Ergocalciferol (VITAMIN D2) 50,000 unit PO QWEEK 11/03/16 11/03/16 [Vitamin D2] Lisinopril [Zestril] 10 mg PO DAILY 11/03/16 11/03/16 Simvastatin [Zocor] 40 mg PO HS 11/03/16 11/03/16 Tizanidine HCl [Zanaflex] 4 mg PO TID 11/03/16 11/03/16 Previous Rx's Medication Instructions Recorded Sevelamer [Renvela] 2,400 mg PO TIDWM #90 tablet 08/30/16 Isosorbide MONOnitrate (24 HR) 30 mg PO DAILY #30 tab.er.24h 09/03/16 [Imdur] Carvedilol [Coreg] 12.5 mg PO BIDWM tablet 11/04/16 Doxycycline 100 mg PO BID #14 capsule 11/04/16 HYDROcodone/Acet 5/325 mg [[place] 1 tab PO Q6H PRN #15 tablet 11/04/16 5-325 mg] MethylPREDNISolone 4 mg PO DAILY #21 tab 11/04/16 [MethylPREDNISolone Dose Pack] Metolazone [Zaroxolyn] 2.5 mg PO DAILY #30 tablet 11/04/16 Nicotine Patch [Nicoderm] 21 mg TD DAILY #30 patch.td24 11/04/16 Allergies Allergy/AdvReac Type Severity Reaction Status Date / Time potassium AdvReac Vomiting Verified 11/03/16 14:08 prednisone AdvReac Vomiting Verified 10/04/16 08:30 All systems ED: reviewed and negative except as stated. Constitutional: Denies: fever, chills Cardiovascular: Reports: dyspnea on exertion. Denies: syncope Respiratory: Reports: cough, dyspnea, wheezes Gastrointestinal: Denies: abdominal pain, nausea, vomiting Past Medical History - Past Medical History Source: patient, old records reviewed, nursing notes reviewed Medical history: Reports: arthritis, CHF, COPD, coronary artery disease, dialysis, GERD, hyperlipidemia, hypertension, myocardial infarction, osteoporosis, peripheral artery disease, renal disease, other Surgical history: Reports: non-contributory, vascular surgery, other Psychiatric history: Reports: anxiety, bipolar, depression, other - Social History Smoking Status: Current every day smoker Smokeless Tobacco Status: Yes Alcohol use: Reports: occasionally Drug use: Reports: marijuana, other Physical Exam - General Limitations: no limitations General appearance: in distress (moderate resp distress) - Head Head exam: atraumatic, normocephalic, normal inspection - Eye Eye exam: Present: normal appearance, PERRL, EOMI - ENT ENT exam: normal exam, normal oropharynx, mucous membranes moist - Neck Neck exam: Present: normal inspection, full ROM, trachea midline - Chest Chest inspection: Present: normal inspection, symmetric chest wall rise - Respiratory Respiratory exam: Present: respiratory distress, accessory muscle use, prolonged expiratory phase - Cardiovascular Cardiovascular exam: Present: regular rate, normal rhythm, normal heart sounds - Abdominal Exam Abdominal exam: Present: soft, Non-Tender. Absent: tenderness, distention, guarding, rebound, rigidity - Back Exam Back exam: Present: normal inspection, full ROM. Absent: tenderness - Neurological Exam Neurological exam: Present: alert, oriented X3 - Psychiatric Psychiatric exam: Present: normal affect, normal mood - Skin Skin exam: Present: warm, dry, intact, normal color Course - Reevaluation(s) Reevaluation #1: PATIENT FEELS BREATHING HAS IMPROVED LESS DISTRESS, REMAINS ON BIPAP Time: 10:38 Reevaluation #2: TAHMINA SANDOVAL TO ADMIT WILL DECIDE ON ABX CHOICE Time: 11:01 Vital Signs Temperature 0 F L 11/19/16 09:04 Pulse Rate 127 11/19/16 09:04 Respiratory Rate 20 11/19/16 09:04 Blood Pressure 203/117 11/19/16 09:04 O2 Sat by Pulse Oximetry 88 L 11/19/16 09:04 Temperature 97.6 F 11/19/16 09:16 Pulse Rate 78 11/19/16 10:28 Respiratory Rate 14 11/19/16 10:28 Blood Pressure 155/78 11/19/16 10:28 O2 Sat by Pulse Oximetry 100 11/19/16 10:28 Oxygen Delivery Oxygen Delivery Bipap Shortness of Breath/Dyspnea - Differential Diagnosis Likely: acute exacerbation of chronic obstructive airways disease, congestive heart failure, pneumonia, asthma with exacerbation, pulmonary embolism, pneumothorax, arrhythmia - Medical Records Medical records reviewed: Yes I reviewed the patient's medical records. - Lab Data Lab results reviewed: Yes I reviewed the patient's lab results. Result diagrams: 11/19/16 09:15 11/19/16 09:15 Lab Results 11/19/16 11/19/16 11/19/16 Range/Units 09:15 09:15 09:15 WBC 10.4 (4.3-11.1) K/mcL RBC 3.41 L (4.19-5.50) M/mcL Hgb 10.1 L (12.9-16.9) g/dL Hct 30.7 L (37.5-50.1) % MCV 90.0 (83.0-100.0) fL MCH 29.6 (28.0-33.3) pg MCHC 32.9 (31.6-35.5) g/dL RDW 14.9 H (11.5-14.5) % Plt Count 341 (140-400) K/mcL MPV 9.2 L (9.4-12.4) fL Immature Gran % 0.9 (0-4) % Seg Neutrophils % 54.7 % Lymphocytes % 32.4 % Monocytes % 8.4 % Eosinophils % 3.2 % Basophils % 0.4 % Neutrophils # 5.7 (1.6-8.9) K/mcL Lymphocytes # 3.4 (0.6-4.6) K/mcL Monocytes # 0.9 (0.0-1.3) K/mcL Eosinophils # 0.3 (0.0-0.6) K/mcL Basophils # 0.0 (0.0-0.2) K/mcL PT 11.1 (9.4-12.1) Seconds INR 1.0 ABG pH (7.32-7.45) pH Units ABG pCO2 (35-45) mmHg ABG pO2 (85-104) mmHg ABG HCO3 (21-27) mEQ/L ABG Total CO2 (20-26) mEq/L ABG O2 Saturation (95-98) % ABG Base Excess (-2.0 to 3.0) mEq/L Blood Gas Modality Inspired O2 % Sodium 122 L (136-145) mEq/L Potassium 4.1 (3.5-4.5) mEq/L Chloride 90 L (98-109) mEq/L Carbon Dioxide 21 (19-29) mEq/L BUN 34 H (8-26) mg/dL Creatinine 3.72 H (0.72-1.25) mg/dL Est GFR ( Amer) 21 L (> 60) Est GFR (Non-Af Amer) 17 L (> 60) BUN/Creatinine Ratio 9 (6-26) Glucose 123 H (70-99) mg/dL Calculated Osmolality 263 L (280-300) Calcium 8.7 (8.6-10.8) mg/dL Troponin I (0-0.03) ng/mL B-Natriuretic Peptide (0-100) pg/mL 11/19/16 11/19/16 11/19/16 Range/Units 09:15 09:15 09:50 WBC (4.3-11.1) K/mcL RBC (4.19-5.50) M/mcL Hgb (12.9-16.9) g/dL Hct (37.5-50.1) % MCV (83.0-100.0) fL MCH (28.0-33.3) pg MCHC (31.6-35.5) g/dL RDW (11.5-14.5) % Plt Count (140-400) K/mcL MPV (9.4-12.4) fL Immature Gran % (0-4) % Seg Neutrophils % % Lymphocytes % % Monocytes % % Eosinophils % % Basophils % % Neutrophils # (1.6-8.9) K/mcL Lymphocytes # (0.6-4.6) K/mcL Monocytes # (0.0-1.3) K/mcL Eosinophils # (0.0-0.6) K/mcL Basophils # (0.0-0.2) K/mcL PT (9.4-12.1) Seconds INR ABG pH 7.21 L (7.32-7.45) pH Units ABG pCO2 70 H* (35-45) mmHg ABG pO2 16 L* (85-104) mmHg ABG HCO3 28.0 H (21-27) mEQ/L ABG Total CO2 30.1 H (20-26) mEq/L ABG O2 Saturation 14 L (95-98) % ABG Base Excess -0.8 (-2.0 to 3.0) mEq/L Blood Gas Modality BIPAP Inspired O2 50 % Sodium (136-145) mEq/L Potassium (3.5-4.5) mEq/L Chloride (98-109) mEq/L Carbon Dioxide (19-29) mEq/L BUN (8-26) mg/dL Creatinine (0.72-1.25) mg/dL Est GFR ( Amer) (> 60) Est GFR (Non-Af Amer) (> 60) BUN/Creatinine Ratio (6-26) Glucose (70-99) mg/dL Calculated Osmolality (280-300) Calcium (8.6-10.8) mg/dL Troponin I 0.03 (0-0.03) ng/mL B-Natriuretic Peptide 1342 H (0-100) pg/mL - Radiology Data Radiology results reviewed: Yes I reviewed the patient's radiology results. - EKG Data EKG attestation: Yes I reviewed and interpreted this EKG. EKG shows normal: Reports: sinus rhythm Rate: Reports: normal Rhythm: Reports: NSR [place]/QRS: Reports: normal Interpretation: Reports: nonspecific ST-T wave changes Critical Care Time Critical Care Time: Yes Total Critical Care Time: 35 Attestation: Critical care performed: Time is exclusive of separately billable procedures. Time includes: direct patient care, patient reassessment, coordination of patient care, interpretation of data (laboratory data, radiology data, and respiratory data), review of patient's medical records, medical consultation and documentation of patient care. Procedures included in critical care time: Procedures excluded from critical care time:
[2016-11-19 09:25] LABS: Basophils % 0.4 %; Eosinophils # 0.3 K/mcL (0.0-0.6); Eosinophils % 3.2 %; Hematocrit 30.7 % (37.5-50.1); Hemoglobin 10.1 g/dL (12.9-16.9); Immature Granulocytes % 0.9 % (0-4); Lymphocytes # 3.4 K/mcL (0.6-4.6); Lymphocytes % 32.4 %; Mean Corpuscular HGB Conc 32.9 g/dL (31.6-35.5); Mean Corpuscular Hemoglobin 29.6 pg (28.0-33.3); Mean Platelet Volume 9.2 fL (9.4-12.4); Monocytes # 0.9 K/mcL (0.0-1.3); Monocytes % 8.4 %; Neutrophils # 5.7 K/mcL (1.6-8.9); Platelet Count 341 K/mcL (140-400); Red Blood Count 3.41 M/mcL (4.19-5.50); Red Cell Distribution Width 14.9 % (11.5-14.5); Segmented Neutrophils % 54.7 %
[2016-11-19 09:30] LABS: Prothrombin Time 11.1 Seconds (9.4-12.1)
[2016-11-19] MEDS ORDERED: Aspirin 81 MG TAB.CHEW PO STA (09:30)
[2016-11-19 09:38] LABS: Calcium 8.7 mg/dL (8.6-10.8); Potassium 4.1 mEq/L (3.5-4.5)
[2016-11-19 10:02] LABS: ABG Base Excess -0.8 mEq/L (-2.0 to 3.0); ABG Oxygen Saturation 14 % (95-98); ABG PH 7.21 pH Units (7.32-7.45); ABG TCO2 30.1 mEq/L (20-26)
[2016-11-19 10:05] LABS: ABG PCO2 70 mmHg (35-45); ABG PO2 16 mmHg (85-104)
[2016-11-19 10:07] LABS: Blood Gas FiO2 50 %
[2016-11-19] MEDS ORDERED: Naloxone 0.4 MG/ML INJ IVP PRN (11:26)
[2016-11-19] MEDS ORDERED: Acetaminophen 325 MG TABLET PO PRN (11:26)
[2016-11-19] MEDS ORDERED: Ondansetron 4 MG/2 ML VIAL IVP PRN (11:26)
[2016-11-19] MEDS ORDERED: Furosemide 40 MG/4 ML VIAL IVP ONE (12:03)
[2016-11-19] MEDS ORDERED: Albuterol 2.5 MG/3 ML NEBULIZER IH PRN (12:04)
--- NOTE | 2016-11-19 12:19 | Nephrology Consult Note ---
Date of Encounter: 11/19/16 Time of Encounter: 12:16 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 Plan (1) ESRD (end stage renal disease) on dialysis Current Visit: Yes Status: Chronic Will do dialysis today Plan for dialysis again tomorrow to get him back on his regular schedule of HD treatments Renal diet Strict I/Os Fluid restriction 1.5 liters/day Avoid nephrotoxins if possible Phos level-if high start binders; not currently showing any binders on his home med list (2) Acute respiratory failure with hypoxemia Current Visit: Yes Status: Acute per primary team Will pull fluid off during HD (3) Noncompliance Current Visit: No Status: Chronic Patient is very non-compliant with his dialysis treatments despite repeated education given on the importance of coming to all three of his HD treatments per week. History of Present Illness - Reason for Consult Consult date: 11/19/16 end stage renal disease - Chief Complaint acute respiratory failure with phyoxemia, ESRD on dialysis - History of Present Illness Mr Castro is a 51 year old male well known to our practice with a PMH of arthritis, CHF, COPD, coronary artery disease, GERD, hyperlipidemia, hypertension, myocardial infarction, osteoporosis, peripheral artery disease, and ESRD on dialysis M,W,F at [facility]. Patient presented to hospital with dyspnea and was admitted for acute exacerbation of chronic obstructive airway disease, acute respiratory failure with hypoxemia. Patient missed his dialysis treatment yesterday but reports he did go last Friday. Patient is very non-compliant with his HD treatments, missing frequently. Nephrology has been consulted to manage patient's dialysis while hospitalized. Past Med Surg Social Fam HX - Past Medical History Medical history: arthritis, CHF, COPD, coronary artery disease, dialysis, GERD, hyperlipidemia, hypertension, myocardial infarction, osteoporosis, peripheral artery disease, renal disease, other Psychiatric history: anxiety, bipolar, depression, other - Past Surgical History Surgical History: non-contributory, vascular surgery, other - Social History Smoking Status: Current every day smoker Smokeless Tobacco Status: Yes Alcohol use: occasionally Drug use: marijuana, other - Family History Mother Hx Family Cardiac Disorders: Yes Father Hx Family Cardiac Disorders: Yes Medications and Allergies Albuterol Sulfate [Proair Respiclick] 2 puff IH Q4H PRN 10/02/15 [History] Citalopram [CeleXA] 40 mg PO DAILY 12/21/15 [History] Fluticasone/Salmeterol [Advair 250-50 Diskus] 1 puff IH BID 10/02/15 [History] Furosemide [Lasix] 40 mg PO BID 10/02/15 [History] Hydroxyzine HCl 25 mg PO TID 10/02/15 [History] Lidocaine Patch [Lidoderm 5% patch] 1 patch TP DAILY 10/02/15 [History] Isosorbide MONOnitrate (24 HR) [Imdur] 30 mg PO DAILY #30 tab.er.24h 09/03/16 [ Rx] Aspirin 81 mg PO DAILY 10/04/16 [History] Ferrous Sulfate [Iron] 325 mg PO DAILY 10/04/16 [History] Gabapentin [Neurontin] 800 mg PO QID 10/04/16 [History] Carvedilol [Coreg] 6.25 mg PO BID 11/03/16 [History] Ergocalciferol (VITAMIN D2) [Vitamin D2] 50,000 unit PO QWEEK 11/03/16 [History] Lisinopril [Zestril] 10 mg PO DAILY 11/03/16 [History] Simvastatin [Zocor] 40 mg PO HS 11/03/16 [History] Tizanidine HCl [Zanaflex] 4 mg PO TID 11/03/16 [History] HYDROcodone/Acet 5/325 mg [[place] 5-325 mg] 1 tab PO Q6H PRN #15 tablet 11/04/16 [Rx] Metolazone [Zaroxolyn] 2.5 mg PO DAILY #30 tablet 11/04/16 [Rx] Nicotine Patch [Nicoderm] 21 mg TD DAILY #30 patch.td24 11/04/16 [Rx] Ipratropium/Albuterol Sulfate [Combivent Respimat Inhal [place]] 1 puff IH QID 04/28 [History] Metoprolol [Lopressor] 50 mg PO DAILY 11/19/16 [History] Potassium Chloride [Klor-Con 10] 10 meq PO BID 11/19/16 [History] Allergies potassium Adverse Reaction (Verified 11/03/16 14:08) Vomiting prednisone Adverse Reaction (Verified 10/04/16 08:30) Vomiting Review of Systems All Systems: reviewed and no additional remarkable complaints except as stated Constitutional: fatigue, lethargy Cardiovascular: dyspnea, dyspnea on exertion, edema Respiratory: dyspnea, dyspnea on exertion Gastrointestinal: no abdominal pain Neurological: no behavioral changes Psychiatric: no behavioral changes Exam - Vital Signs Vital signs: Initial Vital Signs Temp Pulse Resp BP Pulse Ox 0 F L 127 20 203/117 88 L 11/19/16 09:04 11/19/16 09:04 11/19/16 09:04 11/19/16 09:04 11/19/16 09:04 Vital Signs - Last 8 Hours Temp Pulse Resp BP Pulse Ox 11/19/16 12:05 97.6 F 72 18 179/77 97 11/19/16 11:47 15 137/75 Intake and Output 11/18/16 11/19/16 11/19/16 23:59 07:59 15:59 Other: Weight 85 kg Patient Weight 11/19/16 23:59 Weight 85 kg - General Appearance General appearance: obese, chronically ill EENT: ATNC, mucous membranes moist, hearing intact, vision intact Neck: supple Respiratory: course breath sounds (on CPAP) Cardiology: edema, normal S1, normal S2 - Dialysis Access Dialysis Vascular Access: Venous Catheter Gastrointestinal: no guarding, obese Integumentary: warm and dry Neurologic: alert and oriented x3 Psychiatric: mood/affect appropriate, cooperative Results - Lab Results 11/19/16 09:15 11/19/16 09:15 Most recent lab results ABG pH 7.21 pH Units (7.32-7.45) L 11/19/16 09:50 ABG pCO2 70 mmHg (35-45) H* 11/19/16 09:50 ABG pO2 16 mmHg (85-104) L* 11/19/16 09:50 ABG HCO3 28.0 mEQ/L (21-27) H 11/19/16 09:50 ABG O2 Saturation 14 % (95-98) L 11/19/16 09:50 Calcium 8.7 mg/dL (8.6-10.8) 11/19/16 09:15 Consult Discharge Plan - Plan Referrals: Nallely Hanna, [employer] DIRECTOR [Primary Care Provider] -
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
[2016-11-19] MEDS ORDERED: 0.9 % Sodium Chloride 250 ML IVPB ONE (12:45)
[2016-11-19 13:04] LABS: Magnesium 1.4 mg/dL (1.6-2.6); Phosphorous 5.7 mg/dL (2.3-4.7)
[2016-11-19] MEDS: Gabapentin 400 MG CAPSULE PO SCH ×3 (13:24→22:21)
[2016-11-19] MEDS: Nicotine 21 MG PATCH.TD24 TD SCH (13:24)
[2016-11-19] MEDS: Ipratropium/Albuterol Neb 3 ML IH SCH ×2 (16:18→22:34)
[2016-11-19] MEDS: *HR* Heparin 5,000 UNIT/ML VIAL SQ SCH (17:23)
[2016-11-19] MEDS ORDERED: 0.9 % Sodium Chloride 2,000 ML ONE (17:55)
[2016-11-19] MEDS: Budesonide/Formoterol 80/4.5 MDI IH SCH ×2 (19:55→22:34)
[2016-11-19] MEDS: *HR* HYDROcodone/Acet 5/325 mg TABLET PO PRN (22:21)
[2016-11-20] MEDS: Ipratropium/Albuterol Neb 3 ML IH SCH ×2 (04:26→10:27)
[2016-11-20 05:31] LABS: Hematocrit 25.5 % (37.5-50.1); Immature Granulocytes % 0.4 % (0-4); Lymphocytes # 0.7 K/mcL (0.6-4.6); Lymphocytes % 13.5 %; Mean Corpuscular HGB Conc 33.3 g/dL (31.6-35.5); Mean Corpuscular Hemoglobin 28.9 pg (28.0-33.3); Mean Corpuscular Volume 86.7 fL (83.0-100.0); Mean Platelet Volume 9.8 fL (9.4-12.4); Monocytes # 0.2 K/mcL (0.0-1.3); Monocytes % 4.2 %; Neutrophils # 4.3 K/mcL (1.6-8.9); Platelet Count 246 K/mcL (140-400); Red Blood Count 2.94 M/mcL (4.19-5.50); Red Cell Distribution Width 14.6 % (11.5-14.5); Segmented Neutrophils % 81.9 %
[2016-11-20 05:50] LABS: Calcium 8.4 mg/dL (8.6-10.8); Magnesium 1.7 mg/dL (1.6-2.6); Potassium 3.9 mEq/L (3.5-4.5)
[2016-11-20 05:59] LABS: Hemoglobin 8.5 g/dL (12.9-16.9)
[2016-11-20] MEDS: Gabapentin 400 MG CAPSULE PO SCH (06:54)
[2016-11-20] MEDS: *HR* Heparin 5,000 UNIT/ML VIAL SQ SCH ×2 (06:54→18:06)
[2016-11-20] MEDS: *HR* HYDROcodone/Acet 5/325 mg TABLET PO PRN ×3 (06:56→21:43)
[2016-11-20] MEDS: Nicotine 21 MG PATCH.TD24 TD SCH (07:41)
[2016-11-20] MEDS ORDERED: 0.9 % Sodium Chloride 250 ML IV PRN (08:42)
[2016-11-20] MEDS ORDERED: Aspirin 81 MG TAB.CHEW PO SCH (09:00)
[2016-11-20] MEDS ORDERED: *HR* Heparin 5,000 UNIT/ML VIAL ONE (10:15)
[2016-11-20] MEDS ORDERED: 0.9 % Sodium Chloride 2,000 ML ONE (10:15)
[2016-11-20] MEDS: Budesonide/Formoterol 80/4.5 MDI IH SCH ×2 (10:27→19:46)
--- NOTE | 2016-11-20 12:29 | Nephrology Progress Note ---
Date of Encounter: 11/20/16 Time of Encounter: 10:20 - 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 Plan (1) ESRD (end stage renal disease) on dialysis Current Visit: Yes Status: Chronic Dialysis note: VSS, access pressures and the Permacath all appear to be working well. Ordered 3hr, 3K and 3.5kg goal UF. Next HD is planned for Friday, but if he happened to remain hospitalized, then for his anasarca, I would consider further fluid removal tomorrow I recommend renal dosing of meds: his Gabapentin is more than the FDA recommended max of 300mg per day in the setting of ESRD. Anemia with CKD: goal Hgb is 10-11. Start Aranesp while hospitalized (he typically requires an TAISHA) Hx of diuretics and resultant hypokalemia: KCl supplementation is reasonable since he has not been hyperkalemic. (2) Accelerated hypertension Current Visit: No Status: Chronic (3) Anasarca Current Visit: No Status: Chronic Subjective Principal diagnosis: ESRD, Edema Interval history: Pt was s/e earlier today while on HD. He did not affirm N/V/D and no cramping. Objective - Vital Signs Vital signs: Vital Signs Temp Pulse Resp BP Pulse Ox 11/20/16 12:10 155/85 11/20/16 11:55 151/83 11/20/16 11:40 148/84 11/20/16 11:25 161/86 11/20/16 11:10 149/87 11/20/16 10:55 153/88 11/20/16 10:40 158/88 11/20/16 10:25 164/92 11/20/16 10:10 98.0 F 16 181/102 11/20/16 07:46 96 11/20/16 07:31 98.0 F 93 16 167/33 96 11/20/16 04:26 20 94 L 11/20/16 03:44 97.1 F L 89 20 162/86 11/19/16 22:34 18 96 11/19/16 21:48 98.2 F 82 18 161/75 95 11/19/16 21:10 97.5 F L 16 164/97 11/19/16 21:00 156/81 11/19/16 20:45 149/82 11/19/16 20:30 148/77 11/19/16 20:15 152/81 02/07/17 20:00 155/83 11/19/16 19:45 158/79 11/19/16 19:30 152/82 11/19/16 19:15 142/75 11/19/16 19:00 150/82 11/19/16 18:45 159/84 11/19/16 18:30 163/84 11/19/16 18:15 156/88 11/19/16 18:00 97.5 F L 18 174/90 11/19/16 16:22 20 97 11/19/16 15:28 97.5 F L 73 18 151/82 98 Intake and Output 11/19/16 11/20/16 11/20/16 23:59 07:59 15:59 Intake Total 600 / 600 840 / 840 Output Total 3575 / 3575 Balance -2975 / -2975 840 / 840 Intake: Oral 0 / 0 240 / 240 Intake, Rinseback and 600 / 600 600 / 600 Flushes Output: Urine 975 / 975 Total Dialysis Output 2600 / 2600 Other: Meal Breakfast Percent of Meal Consumed 100% Weight 84.4 kg Hemodialysis Net Fluid 1999 2728 Removed (mL) Patient Weight 11/20/16 23:59 Weight 84.4 kg - General Appearance General appearance: Present: well-developed, well-nourished, appears started age EENT: Present: ATNC, PERRL, mucous membranes moist Neck: Present: supple Respiratory: Present: course breath sounds Cardiology: Present: edema, regular rate, normal S1, normal S2 Dialysis Vascular Access: Venous Catheter (Rt Permacath) Gastrointestinal: Present: normoactive bowel sounds, no tenderness, no guarding Integumentary: Present: no rash, warm and dry Neurologic: Present: no focal deficit, no asterixis, alert and oriented x3 Musculoskeletal: Present: no deformities, no erythema, no cyanosis, no clubbing Psychiatric: Present: mood/affect appropriate, cooperative - Lab 11/20/16 04:41 11/20/16 04:41 Most recent lab results ABG pH 7.21 pH Units (7.32-7.45) L 11/19/16 09:50 ABG pCO2 70 mmHg (35-45) H* 11/19/16 09:50 ABG pO2 16 mmHg (85-104) L* 11/19/16 09:50 ABG HCO3 28.0 mEQ/L (21-27) H 11/19/16 09:50 ABG O2 Saturation 14 % (95-98) L 11/19/16 09:50 Calcium 8.4 mg/dL (8.6-10.8) L 11/20/16 04:41 Phosphorus 5.7 mg/dL (2.3-4.7) H 11/19/16 12:35 Magnesium 1.7 mg/dL (1.6-2.6) 11/20/16 04:41 Consult Discharge Plan - Plan Referrals: Nallely Hanna, [employer] [Primary Care Provider] - (web request sent on 11/20/16 )
[2016-11-20] MEDS ORDERED: Ipratropium/Albuterol Neb 3 ML IH PRN (12:56)
[2016-11-20] MEDS: metOLazone 2.5 MG TABLET PO SCH (13:36)
[2016-11-20] MEDS: Isosorbide MONOnitrate (24 HR) 30 MG TAB.ER.24H PO SCH (13:36)
[2016-11-20] MEDS: Furosemide 40 MG TABLET PO SCH ×2 (13:36→21:38)
--- NOTE | 2016-11-20 14:27 | Event Note ---
Date of Encounter: 11/20/16 Time of Encounter: 14:25 Mr. Castro is a 51 year old male with a past medical hx of triple vessel CAD, CKD on dialysis MWF, DEE HTN Tobacco use COPD with O2 use. He presented with acute respiratory failure, secondary to etiology being multifactorialCOPD, CHF, noncompliance with dialysis and oxygen and medications. Also noncompliance to CPAP at night. He received dialysis yesterday and also this morning. He reports marked improvement in his breathing, denies any other complaints at this time. Renal is on board and plan to remove extra fluid via ultrafiltration tomorrow. We will plan discharge tomorrow after the ultrafiltration if he remains stable.
--- NOTE | 2016-11-20 15:12 | Electrocardiograph Report ---
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
[2016-11-20] MEDS ORDERED: Gabapentin 300 MG CAPSULE PO SCH (20:00)
[2016-11-21] MEDS: *HR* Heparin 5,000 UNIT/ML VIAL SQ SCH (06:13)
[2016-11-21] MEDS: *HR* HYDROcodone/Acet 5/325 mg TABLET PO PRN (06:17)
[2016-11-21 06:27] LABS: Basophils % 0.3 %; Eosinophils % 0.3 %; Hematocrit 24.7 % (37.5-50.1); Hemoglobin 8.1 g/dL (12.9-16.9); Immature Granulocytes % 0.3 % (0-4); Mean Corpuscular HGB Conc 32.8 g/dL (31.6-35.5); Mean Corpuscular Hemoglobin 29.9 pg (28.0-33.3); Mean Corpuscular Volume 91.1 fL (83.0-100.0); Mean Platelet Volume 9.8 fL (9.4-12.4); Monocytes # 0.7 K/mcL (0.0-1.3); Monocytes % 7.5 %; Neutrophils # 5.9 K/mcL (1.6-8.9); Platelet Count 244 K/mcL (140-400); Red Blood Count 2.71 M/mcL (4.19-5.50); Red Cell Distribution Width 15.2 % (11.5-14.5); Segmented Neutrophils % 60.6 %
[2016-11-21 06:40] LABS: Calcium 8.6 mg/dL (8.6-10.8); Potassium 3.8 mEq/L (3.5-4.5)
[2016-11-21 07:46] VITALS: BP 162/83
[2016-11-21] MEDS: Furosemide 40 MG TABLET PO SCH (08:20)
[2016-11-21] MEDS: Nicotine 21 MG PATCH.TD24 TD SCH (08:20)
[2016-11-21] MEDS: metOLazone 2.5 MG TABLET PO SCH (08:21)
[2016-11-21] MEDS: Isosorbide MONOnitrate (24 HR) 30 MG TAB.ER.24H PO SCH (08:21)
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
[2016-11-21] MEDS ORDERED: Gabapentin 300 MG CAPSULE PO SCH (09:00)
[2016-11-21] MEDS ORDERED: Aspirin Enteric Coated 81 MG Tablet PO SCH (09:00)
--- NOTE | 2016-11-21 09:03 | Nephrology Progress Note ---
Date of Encounter: 11/21/16 Time of Encounter: 09:01 - 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 Plan (1) ESRD (end stage renal disease) on dialysis Current Visit: Yes Status: Chronic Being discharged today Plan for HD tomorrow at [facility]. Patient assures me he will be there. Continue renal diet and fluid restriction at home (2) Acute respiratory failure with hypoxemia Current Visit: Yes Status: Resolved (3) Noncompliance Current Visit: No Status: Chronic Patient very non-compliant with his dialysis treatments Subjective Principal diagnosis: ESRD, Edema Interval history: Patient seen and examined. Getting ready for discharge home. Objective - Vital Signs Vital signs: Vital Signs Temp Pulse Resp BP Pulse Ox 11/21/16 07:45 97.6 F 77 16 162/83 97 11/21/16 05:17 97.8 F 85 20 160/81 97 11/21/16 00:26 97.7 F 74 18 172/87 99 11/20/16 20:06 98.3 F 78 18 167/85 96 11/20/16 19:51 96 11/20/16 19:46 16 96 11/20/16 15:49 98.8 F 93 16 152/77 97 11/20/16 13:57 154/77 11/20/16 13:31 97.8 F 95 18 154/77 98 11/20/16 13:20 98.0 F 16 171/87 11/20/16 13:10 144/79 11/20/16 12:55 140/77 11/20/16 12:40 142/77 11/20/16 12:25 143/79 11/20/16 12:10 155/85 11/20/16 11:55 151/83 11/20/16 11:40 148/84 11/20/16 11:25 161/86 11/20/16 11:10 149/87 11/20/16 10:55 153/88 11/20/16 10:40 158/88 11/20/16 10:25 164/92 11/20/16 10:10 98.0 F 16 181/102 Intake and Output 11/20/16 11/21/16 11/21/16 23:59 07:59 15:59 Output Total 500 / 500 Balance -500 / -500 Output: Urine 500 / 500 Other: Weight 80.739 kg Patient Weight 11/21/16 23:59 Weight 80.739 kg - General Appearance General appearance: Present: well-developed, well-nourished EENT: Present: ATNC, mucous membranes moist, hearing intact, vision intact Neck: Present: supple Respiratory: Present: clear Cardiology: Present: no edema, normal S1, normal S2 Dialysis Vascular Access: Venous Catheter Gastrointestinal: Present: no tenderness, no guarding Integumentary: Present: warm and dry Neurologic: Present: no focal deficit, alert and oriented x3 Musculoskeletal: Present: no deformities Psychiatric: Present: mood/affect appropriate, cooperative - Lab 11/21/16 05:52 11/21/16 05:52 Most recent lab results ABG pH 7.21 pH Units (7.32-7.45) L 11/19/16 09:50 ABG pCO2 70 mmHg (35-45) H* 11/19/16 09:50 ABG pO2 16 mmHg (85-104) L* 11/19/16 09:50 ABG HCO3 28.0 mEQ/L (21-27) H 11/19/16 09:50 ABG O2 Saturation 14 % (95-98) L 11/19/16 09:50 Calcium 8.6 mg/dL (8.6-10.8) 11/21/16 05:52 Phosphorus 5.7 mg/dL (2.3-4.7) H 11/19/16 12:35 Magnesium 1.7 mg/dL (1.6-2.6) 11/20/16 04:41 Consult Discharge Plan - Plan Referrals: Nallely Hanna CNP [Primary Care Provider] - 11/27/16 3:00 pm (Please follow up as schedule.... ) Prescriptions: HYDROcodone/Acet 5/325 mg [Boone 5-325 mg] 1 tab PO Q6H PRN #10 tablet PRN Reason: Moderate Pain (4-6)
[2016-11-21] MEDS: Budesonide/Formoterol 80/4.5 MDI IH SCH (10:49)
== END 2016-11-21 11:55 | disposition home or self-care (01) ==
LOC: 2ANU 09:02 → EMEROO 09:02 → 2ANU 12:00
PROVIDERS: ADMIT Family Medicine; ATTEND Internal Medicine Endocrinology, Diabetes & Metabolism

== ENCOUNTER 2016-11-22 07:33 | Observation (INO) ==
[2016-11-22] MEDS ORDERED: Nitroglycerin 25 MG/250 ML INFUS..BTL IVC ONE (07:37)
[2016-11-22] MEDS ORDERED: Nitroglycerin 0.4 MG TAB.SUBL SL ONE (07:37)
[2016-11-22] MEDS ORDERED: Nitroglycerin 25 MG/250 ML INFUS..BTL IVC STA (07:38)
[2016-11-22] MEDS: Nitroglycerin 0.4 MG TAB.SUBL SL STA ×2 (07:40→07:45)
--- NOTE | 2016-11-22 07:47 | Emergency Department Note ---
Disposition Clinical Impression: Hypoxia CHF exacerbation Qualifiers: Congestive heart failure type: diastolic Qualified Code(s): I50.33 - Acute on chronic diastolic (congestive) heart failure Fluid overload Qualifiers: Hypervolemia type: unspecified Qualified Code(s): E87.70 - Fluid overload, unspecified Disposition: Admitted As Inpatient Condition: Fair Referrals: Nallely Hanna [employer] [Primary Care Provider] - Forms: ED Satisfaction Letter Time of Disposition: 08:24 SOB HPI - General Chief Complaint: ED Shortness of Breath/Dyspnea Stated Complaint: ANNETTA Time Seen by Provider: 11/22/16 07:38 Source: patient, EMS Mode of arrival: EMS Limitations: no limitations Nursing Notes Reviewed: Yes Vital Signs Reviewed: Yes - History of Present Illness Patient is a 51-year-old male with past medical history of COPD, CHF, CAD, previous [place], renal failure with dialysis Friday, Friday, Friday. Patient states he missed dialysis on Friday. He was just discharged from hospital yesterday, had dialysis on Friday according to Dr. Zavala. Patient said that he began having shortness of breath about 2-1/2 hours ago. Denies any chest pain. Denies any nausea, vomiting, fevers, abdominal pain, diarrhea, constipation. Denies any recent lower extremity edema. EMS states that the patient was satting in the 60s on 3 L nasal cannula oxygen on arrival, they put him on CPAP and he began satting around 85%. - Related Data Home Medications Medication Instructions Recorded Confirmed Albuterol Sulfate [Proair 2 puff IH Q4H PRN 10/02/15 11/19/16 Respiclick] Citalopram [CeleXA] 40 mg PO DAILY 10/02/15 11/19/16 Fluticasone/Salmeterol [Advair 1 puff IH BID 10/02/15 11/19/16 250-50 Diskus] Furosemide [Lasix] 40 mg PO BID 10/02/15 11/19/16 Hydroxyzine HCl 25 mg PO TID 10/02/15 11/19/16 Lidocaine Patch [Lidoderm 5% patch] 1 patch TP DAILY 10/02/15 11/19/16 Aspirin 81 mg PO DAILY 10/04/16 11/19/16 Ferrous Sulfate [Iron] 325 mg PO DAILY 10/04/16 11/19/16 Gabapentin [Neurontin] 800 mg PO QID 10/04/16 11/19/16 Carvedilol [Coreg] 6.25 mg PO BID 11/03/16 11/19/16 Ergocalciferol (VITAMIN D2) 50,000 unit PO QWEEK 11/03/16 11/19/16 [Vitamin D2] Lisinopril [Zestril] 10 mg PO DAILY 11/03/16 11/19/16 Simvastatin [Zocor] 40 mg PO HS 11/03/16 11/19/16 Tizanidine HCl [Zanaflex] 4 mg PO TID 11/03/16 11/19/16 Ipratropium/Albuterol Sulfate 1 puff IH QID 11/19/16 11/19/16 [Combivent Respimat Inhal [place]] Potassium Chloride [Klor-Con 10] 10 meq PO BID 11/19/16 11/19/16 Previous Rx's Medication Instructions Recorded Isosorbide MONOnitrate (24 HR) 30 mg PO DAILY #30 tab.er.24h 09/03/16 [Imdur] HYDROcodone/Acet 5/325 mg [[place] 1 tab PO Q6H PRN #15 tablet 11/04/16 5-325 mg] Metolazone [Zaroxolyn] 2.5 mg PO DAILY #30 tablet 11/04/16 Nicotine Patch [Nicoderm] 21 mg TD DAILY #30 patch.td24 11/04/16 HYDROcodone/Acet 5/325 mg [[place] 1 tab PO Q6H PRN #10 tablet 11/21/16 5-325 mg] Allergies Allergy/AdvReac Type Severity Reaction Status Date / Time potassium AdvReac Vomiting Verified 11/03/16 14:08 prednisone AdvReac Vomiting Verified 10/04/16 08:30 Constitutional: Denies: fever, chills Cardiovascular: Denies: chest pain, palpitations, dyspnea on exertion Respiratory: Denies: cough, dyspnea, wheezes Gastrointestinal: Denies: abdominal pain, nausea, vomiting Genitourinary: Denies: urgency, dysuria, frequency Musculoskeletal: Denies: back pain, neck pain Integumentary: Denies: rash, abrasion Past Medical History - Past Medical History Attestation: Yes The following information was validated with the patient. Source: patient Medical history: Reports: arthritis, CHF, COPD, coronary artery disease, dialysis, GERD, hyperlipidemia, hypertension, myocardial infarction, osteoporosis, peripheral artery disease, renal disease, other Surgical history: Reports: non-contributory, vascular surgery, other Psychiatric history: Reports: anxiety, bipolar, depression, other - Social History Smoking Status: Current every day smoker Smokeless Tobacco Status: Yes Alcohol use: Reports: occasionally Drug use: Reports: marijuana, other Physical Exam - General Limitations: no limitations General appearance: alert, anxious - Eye Eye exam: Present: normal appearance, PERRL, EOMI - ENT ENT exam: other (Exam limited due to BIPAP currently placed) - Neck Neck exam: Present: normal inspection, full ROM, trachea midline - Chest Chest inspection: Present: normal inspection, symmetric chest wall rise - Respiratory Respiratory exam: Present: other (Patient and significant respiratory distress, use of accessory muscles,decreased aeration throughout and crackles in bilateral lower lobes, worse on right) - Cardiovascular Cardiovascular exam: Present: normal rhythm, tachycardia, normal heart sounds - Abdominal Exam Abdominal exam: Present: soft, Non-Tender, distention (Mild distention). Absent : tenderness, guarding, rebound, rigidity - Extremities Exam Extremities exam: Present: full ROM, pedal edema (Nonpitting bilateral lower extremity edema). Absent: tenderness - Neurological Exam Neurological exam: Present: alert, oriented X3 - Psychiatric Psychiatric exam: Present: anxious - Skin Skin exam: Present: warm, dry, intact, normal color Course Course Narrative: Patient was hypertensive at 190s systolic when he came in. He was satting 85% on CPAP. Pulse elevated to 110s. Patient had significant increase in work of breathing, use of accessory muscles. patient had crackles in bilateral lower lobes, worse on right lower lobe. Patient's abdomen was also slightly distended. Patient was given 2 sublingual nitroglycerin tablets and started on a nitro drip at 60 mcg/hr. cardiac labs drawn, chest x-ray, EKG, troponin, basic labs. Dr. Boston, milieu coordinator, was paged and case was discussed with the patient. He stated that the patient was just discharged yesterday from the hospital. He received dialysis on Friday and was doing fairly well. He is known in the past to not follow recommendations and medication regimens properly. Dr. Zavala has ordered dialysis, hospitalist will be paged to admit the patient once he has finished dialysis. Sending to dialysis as soon as patient stabilized. 08:00 patient's symptoms already improving on nitro drip. Oxygen saturation now 100%. Has improvement in his work of breathing. SBP in 150s. Dr. Brooks said he would not admit the patient right now until he saw how patient did after dialysis. He recommended to send the patient to dialysis and then have Nephro consult him if they decided on admission. 08:20 CXR shows fluid overoad. Dr. Zavala talked with Dr. Wayne, cannot do dialysis unless admitted. Dr. Brooks has accepted patient for admission. Vital Signs Temperature 98.1 F 11/22/16 07:34 Pulse Rate 108 11/22/16 07:34 Respiratory Rate 30 11/22/16 07:34 Blood Pressure 198/116 11/22/16 07:34 O2 Sat by Pulse Oximetry 98 11/22/16 07:34 Temperature 98.1 F 11/22/16 07:34 Pulse Rate 84 11/22/16 08:15 Respiratory Rate 25 11/22/16 08:15 Blood Pressure 152/95 11/22/16 08:15 O2 Sat by Pulse Oximetry 97 11/22/16 08:15 Oxygen Delivery Oxygen Delivery Bipap Shortness of Breath/Dyspnea - MDM Narrative Medical decision making narrative: 51-year-old male with past medical history of CHF and renal failure dialysis dependent. Came in with clinical presentation of fluid overload/CHF exacerbation. Patient chest x-ray shows significant fluid overload/pulmonary edema. No chest pain. Patient has had multiple admissions in the past for what overload. Will admit patient for dialysis and further care. - Medical Records Medical records reviewed: Yes I reviewed the patient's medical records. - Lab Data Lab results reviewed: Yes I reviewed the patient's lab results. Result diagrams: 11/22/16 07:59 11/22/16 07:59 Lab Results 11/22/16 11/22/16 11/22/16 Range/Units 07:59 07:59 07:59 WBC 13.5 H (4.3-11.1) K/mcL RBC 3.25 L (4.19-5.50) M/mcL Hgb 9.4 L (12.9-16.9) g/dL Hct 29.4 L (37.5-50.1) % MCV 90.5 (83.0-100.0) fL MCH 28.9 (28.0-33.3) pg MCHC 32.0 (31.6-35.5) g/dL RDW 14.6 H (11.5-14.5) % Plt Count 317 (140-400) K/mcL MPV 9.0 L (9.4-12.4) fL Immature Gran % 0.5 (0-4) % Seg Neutrophils % 65.5 % Lymphocytes % 26.3 % Monocytes % 5.8 % Eosinophils % 1.4 % Basophils % 0.5 % Neutrophils # 8.8 (1.6-8.9) K/mcL Lymphocytes # 3.6 (0.6-4.6) K/mcL Monocytes # 0.8 (0.0-1.3) K/mcL Eosinophils # 0.2 (0.0-0.6) K/mcL Basophils # 0.1 (0.0-0.2) K/mcL Sodium 126 L D (136-145) mEq/L Potassium 4.2 (3.5-4.5) mEq/L Chloride 91 L (98-109) mEq/L Carbon Dioxide 26 (19-29) mEq/L BUN 25 (8-26) mg/dL Creatinine 2.86 H (0.72-1.25) mg/dL Est GFR ( Amer) 29 L (> 60) Est GFR (Non-Af Amer) 24 L (> 60) BUN/Creatinine Ratio 9 (6-26) Glucose 85 (70-99) mg/dL Calculated Osmolality 266 L (280-300) Calcium 8.6 (8.6-10.8) mg/dL Troponin I 0.05 H* (0-0.03) ng/mL B-Natriuretic Peptide (0-100) pg/mL 11/22/16 Range/Units 07:59 WBC (4.3-11.1) K/mcL RBC (4.19-5.50) M/mcL Hgb (12.9-16.9) g/dL Hct (37.5-50.1) % MCV (83.0-100.0) fL MCH (28.0-33.3) pg MCHC (31.6-35.5) g/dL RDW (11.5-14.5) % Plt Count (140-400) K/mcL MPV (9.4-12.4) fL Immature Gran % (0-4) % Seg Neutrophils % % Lymphocytes % % Monocytes % % Eosinophils % % Basophils % % Neutrophils # (1.6-8.9) K/mcL Lymphocytes # (0.6-4.6) K/mcL Monocytes # (0.0-1.3) K/mcL Eosinophils # (0.0-0.6) K/mcL Basophils # (0.0-0.2) K/mcL Sodium (136-145) mEq/L Potassium (3.5-4.5) mEq/L Chloride (98-109) mEq/L Carbon Dioxide (19-29) mEq/L BUN (8-26) mg/dL Creatinine (0.72-1.25) mg/dL Est GFR ( Amer) (> 60) Est GFR (Non-Af Amer) (> 60) BUN/Creatinine Ratio (6-26) Glucose (70-99) mg/dL Calculated Osmolality (280-300) Calcium (8.6-10.8) mg/dL Troponin I (0-0.03) ng/mL B-Natriuretic Peptide 1960 H (0-100) pg/mL - Radiology Data Radiology results reviewed: Yes I reviewed the patient's radiology results. - EKG Data EKG attestation: Yes I reviewed and interpreted this EKG. EKG results narrative: 11/22/2016 at 07:40. Sinus tachycardia. Normal axis. Rate 108. QTC 371. QRS 90. No acute ST elevation or depression. Elevated T waves in V2, V3. These elevated T waves are similar to previous EKG on 11/19/26 S.B.A.RRyan - S.B.A.Nunu Situation: Demographics, MOA Background: Presenting Complaint, Relevant PMH, Meds, & Allergies Assessment: Vital Signs, Course and respsone to treatment, Exam Concerns, Patient/Family Expectation, Pertinant Lab Results, Outstanding Labs Recommendation: Barrier(s) to disposition, Recommendation based on pending studies, treatments, or consults [id number] Report Given to: Dr. alphonso Best Repor Time: 08:24 Attestation Statement - Attestation Attestation: I examined this patient and my medical decision-making was reviewed with the Resident Physician. I agree with the documented findings, disposition and treatment plan as described except to the extent set forth below. Patient arrives hypertensive in acute flash pulmonary edema. Symptom onset about 3 hours ago. Is due for dialysis today, did not miss his last dialysis appointment. Saturations in the 60s and 80s and route per EMS report. Arrives tachypneic with a respiratory rate in the low 30s. CPAP initiated by EMS, noninvasive positive pressure ventilation continued in the ED. He was given 2 sublingual nitroglycerin and put on high-dose nitroglycerin drip for afterload reduction. Had marked improvement quickly. Range of motion was titrated up to 150 mics before being dialed back to 140 mics as his blood pressure began to come down. Chest x-ray confirms clinical suspicion of pulmonary edema. Patient is going to dialysis, except by the hospitalist for admission. Critical care time: I was directly and primarily involved in the care of this patient for 75 minutes excluding procedures.
[2016-11-22] MEDS ORDERED: *HR* Heparin 10,000 UNIT/10 ML VIAL IV PRN (08:02)
[2016-11-22] MEDS ORDERED: 0.9 % Sodium Chloride 250 ML IV PRN (08:02)
[2016-11-22 08:07] LABS: Basophils # 0.1 K/mcL (0.0-0.2); Basophils % 0.5 %; Eosinophils # 0.2 K/mcL (0.0-0.6); Eosinophils % 1.4 %; Hematocrit 29.4 % (37.5-50.1); Hemoglobin 9.4 g/dL (12.9-16.9); Immature Granulocytes % 0.5 % (0-4); Lymphocytes # 3.6 K/mcL (0.6-4.6); Lymphocytes % 26.3 %; Mean Corpuscular Hemoglobin 28.9 pg (28.0-33.3); Mean Corpuscular Volume 90.5 fL (83.0-100.0); Monocytes # 0.8 K/mcL (0.0-1.3); Monocytes % 5.8 %; Neutrophils # 8.8 K/mcL (1.6-8.9); Platelet Count 317 K/mcL (140-400); Red Blood Count 3.25 M/mcL (4.19-5.50); Red Cell Distribution Width 14.6 % (11.5-14.5); Segmented Neutrophils % 65.5 %
[2016-11-22] MEDS ORDERED: 0.9 % Sodium Chloride 1,000 ML PRIME SCH (08:15)
[2016-11-22 08:21] LABS: Calcium 8.6 mg/dL (8.6-10.8); Potassium 4.2 mEq/L (3.5-4.5)
[2016-11-22] MEDS ORDERED: *HR* Dextrose 50 % in Water (Syg) 50 ML SYRINGE IVP PRN (11:16)
[2016-11-22] MEDS ORDERED: D5% in Water 1,000 ML IV PRN (11:16)
[2016-11-22] MEDS ORDERED: Dextrose Gel 15 GM PO PRN ×2 (11:16)
--- NOTE | 2016-11-22 12:18 | Nephrology Consult Note ---
Date of Encounter: 11/22/16 Time of Encounter: 10:45 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 Plan (1) ESRD (end stage renal disease) Current Visit: No Status: Acute Continue emergent HD with UF goal of approx. 4kg as tolerated Fluid restriction advised Counselled on adherence to renal diet once more (2) CHF exacerbation Current Visit: Yes Status: Acute Continue diuretics: lasix and metalozone will plan for UF session tomorrow as well for more fluid removal Qualifiers: Congestive heart failure type: diastolic Qualified Code(s): I50.33 - Acute on chronic diastolic (congestive) heart failure (3) Hyponatremia Current Visit: Yes Status: Acute Sodium noted low at 126 likely due to volume overload, should improve after HD today (4) Anemia Current Visit: No Status: Chronic Hgb noted at 9.1, will monitor need for EPO during this HD stay Qualifiers: Anemia type: unspecified type Qualified Code(s): D64.9 - Anemia, unspecified (5) Anemia in chronic kidney disease Current Visit: No Status: Chronic History of Present Illness - Reason for Consult Consult date: 11/23/16 end stage renal disease Requesting physician: Paco Cunningham - History of Present Illness 51 y o male with PMH of HTN, severe 3 vessel CABG awaiting CABG, mod-severe MR, COPD and ESRD on HD m-w-f readmitted after less than 24hr of discharge with progressive SOB requiring biPAP from the ED and subsequently emergent HD. His BP readings also noted elevated in the 200s systolic requiring nitro gtt discontinued at HD. Pt seen and examined during HD after 2 liters of UF feeling better with his breathing. He denied any dietary non compliance and claims he also had home made meatloaf and mashed potatoes after last discharge. Of note, he underwent several HD/UF sessions during recent hospital stay with maximal fluid removal. No chest pain. No N/V. Past Med Surg Social Fam HX - Past Medical History Medical history: arthritis, CHF, COPD, coronary artery disease, dialysis, GERD, hyperlipidemia, hypertension, myocardial infarction, osteoporosis, peripheral artery disease, renal disease, other Psychiatric history: anxiety, bipolar, depression, other - Past Surgical History Surgical History: non-contributory, vascular surgery, other - Social History Smoking Status: Current every day smoker Smokeless Tobacco Status: Yes Alcohol use: occasionally Drug use: marijuana, other - Family History Mother Hx Family Cardiac Disorders: Yes Father Hx Family Cardiac Disorders: Yes Medications and Allergies Albuterol Sulfate [Proair Respiclick] 2 puff IH Q4H PRN 10/02/15 [History] Citalopram [CeleXA] 40 mg PO DAILY 10/02/15 [History] Fluticasone/Salmeterol [Advair 250-50 Diskus] 1 puff IH BID 10/02/15 [History] Furosemide [Lasix] 40 mg PO BID 10/02/15 [History] Hydroxyzine HCl 25 mg PO TID 10/02/15 [History] Lidocaine Patch [Lidoderm 5% patch] 1 patch TP DAILY 10/02/15 [History] Isosorbide MONOnitrate (24 HR) [Imdur] 30 mg PO DAILY #30 tab.er.24h 09/03/16 [ Rx] Aspirin 81 mg PO DAILY 10/04/16 [History] Ferrous Sulfate [Iron] 325 mg PO DAILY 10/04/16 [History] Gabapentin [Neurontin] 800 mg PO QID 10/04/16 [History] Carvedilol [Coreg] 6.25 mg PO BID 11/03/16 [History] Ergocalciferol (VITAMIN D2) [Vitamin D2] 50,000 unit PO QWEEK 11/03/16 [History] Lisinopril [Zestril] 10 mg PO DAILY 11/03/16 [History] Simvastatin [Zocor] 40 mg PO HS 11/03/16 [History] Tizanidine HCl [Zanaflex] 4 mg PO TID 11/03/16 [History] Metolazone [Zaroxolyn] 2.5 mg PO DAILY #30 tablet 11/04/16 [Rx] Nicotine Patch [Nicoderm] 21 mg TD DAILY #30 patch.td24 11/04/16 [Rx] Ipratropium/Albuterol Sulfate [Combivent Respimat Inhal [place]] 1 puff IH QID 04/28 [History] HYDROcodone/Acet 5/325 mg [[place] 5-325 mg] 1 tab PO Q6H PRN #10 tablet 11/21/16 [Rx] Allergies potassium Adverse Reaction (Verified 11/03/16 14:08) Vomiting prednisone Adverse Reaction (Verified 10/04/16 08:30) Vomiting Review of Systems All Systems: reviewed and no additional remarkable complaints except as stated ( 10 systems reviewed) Exam - Vital Signs Vital signs: Initial Vital Signs Temp Pulse Resp BP Pulse Ox 98.1 F 108 30 198/116 98 11/22/16 07:34 11/22/16 07:34 11/22/16 07:34 11/22/16 07:34 11/22/16 07:34 Vital Signs - Last 8 Hours Temp Pulse Resp BP Pulse Ox 11/22/16 11:33 99 11/22/16 10:27 97.1 F L 67 16 135/72 100 11/22/16 10:00 123/71 11/22/16 09:55 123/69 11/22/16 09:50 126/69 11/22/16 09:45 127/68 11/22/16 09:40 128/73 11/22/16 09:35 120/71 11/22/16 09:30 133/81 Intake and Output 11/21/16 11/22/16 11/22/16 23:59 07:59 15:59 Intake Total 82 / 162 Output Total 0 / 0 Balance 82 / 162 Intake: IV Fluids 82 / 162 Nitroglycerin 25 mg In 82 / 162 250 ml @ 60 MCG/MIN 36 mls/hr IVC .Q6H57M STA Rx #:[id number] Output: Urine 0 / 0 Other: Blood Glucose* 81 - General Appearance General appearance: chronically ill (Mild distress on biPAP) EENT: ATNC, mucous membranes moist Neck: no JVD, supple Respiratory: course breath sounds Cardiology: edema (trace LE edema bilat), normal S1, normal S2 - Dialysis Access Dialysis Vascular Access: Venous Catheter (permcath) Gastrointestinal: no tenderness, no guarding Integumentary: warm and dry Neurologic: no focal deficit Musculoskeletal: no deformities Psychiatric: mood/affect appropriate Results - Lab Results 11/23/16 06:36 11/23/16 06:36 Most recent lab results Calcium 8.6 mg/dL (8.6-10.8) 11/22/16 07:59 Consult Discharge Plan - Plan Referrals: Nallely Hanna, [employer] [Primary Care Provider] -
[2016-11-22] MEDS ORDERED: Naloxone 0.4 MG/ML INJ IVP PRN (13:57)
[2016-11-22] MEDS ORDERED: Acetaminophen 325 MG TABLET PO PRN (13:57)
--- NOTE | 2016-11-22 14:11 | Internal Med History&Physical ---
Date of Encounter: 11/22/16 Time of Encounter: 14:07 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 Plan (1) CHF exacerbation Current visit: Yes Status: Acute Patient presented with acute shortness of breath, satting 60% on 3 L nasal cannula, requiring emergent dialysis. Troponin 0.05, BNP 1960 up from previous of 1342. Chest x-ray showed fluid overload and pulmonary edema. Echocardiogram in August 2016 showed moderate to severe mitral regurgitation and EF 55-60%. Cardiac catheter in August 2016 showed severe three-vessel CAD mild to moderate left ventricular dysfunction EF 45% Titrate oxygen to maintain oxygen saturation greater than 92%. BiPAP at night and as needed. Continue home doses of Lasix and metolazone Cardiology consultation ordered, will need called in the morning. Qualifiers: Congestive heart failure type: diastolic Qualified Code(s): I50.33 - Acute on chronic diastolic (congestive) heart failure (2) Fluid overload Current visit: Yes Status: Acute Patient with acute shortness of breath this morning satting 60% on 3 L nasal cannula, chest x-ray showed fluid overload, pulmonary edema he has end-stage renal disease on hemodialysis Friday. He was admitted earlier this week and had dialysis on Friday and discharged yesterday he underwent emergent dialysis this morning for fluid removal. Continue home doses of Lasix and metolazone. Fluid restriction 1 L per day. Renal diet. Nephrology consulted, cardiology consulted. Qualifiers: Hypervolemia type: unspecified Qualified Code(s): E87.70 - Fluid overload, unspecified (3) ESRD (end stage renal disease) Current visit: No Status: Acute Emergent dialysis this morning for fluid overload. Nephrology consult. Potassium 4.2 this morning, creatinine 2.86. Recheck chemistry tomorrow. (4) HTN (hypertension) Current visit: No Status: Chronic Continue home doses of lisinopril, Lasix, Coreg, metolazone Qualifiers: Hypertension type: renovascular hypertension Qualified Code(s): I15.0 - Renovascular hypertension (5) Acute respiratory failure with hypoxia Current visit: No Status: Acute Secondary to CHF exacerbation. Patient satting 60% on 3 L nasal cannula, improved after emergent dialysis. Chest x-ray showed fluid overload, pulmonary edema. BNP elevated to 1960. Titrate oxygen to maintain O2 saturation greater than 92%. BiPAP at night and as needed. DuoNeb treatments QIDR albuterol nebulizer every 2 when necessary (6) CAD (coronary artery disease) Current visit: No Status: Chronic Cardiac catheter in August 2016 showed severe three-vessel coronary artery disease mild to moderate left ventricular dysfunction and EF of 45%. At that time it was recommended patient transferred out of ICU for consideration of PCI versus surgery. Patient elected to decline transfer stating he wanted to enjoy the holidays and follow-up as an outpatient. This does not appear to have been done. Continue home dose of beta harley, aspirin, statin Cardiology consult ordered. Qualifiers: Coronary Disease-Associated Artery/Lesion type: [place] artery [place] vs. transplanted heart: [place] heart Associated angina: angina presence unspecified Qualified Code(s): I25.10 - Atherosclerotic heart disease of [place] coronary artery without angina pectoris (7) DVT prophylaxis Current visit: No Status: Acute Up to chair BID anti-embolic stockings Heparin 5,000u SQ BID Internal Medicine - H&P: HPI Chief complaint: shortness of breath Admitted From: Emergency Dept Plans for Post Hospital Care: Home History of present illness: Mr. Castro is a 51 year old male with hypertension, hyperlipidemia, coronary artery disease, COPD, congestive heart failure, end-stage renal disease on hemodialysis who presented to the emergency department today with shortness of breath. He was recently admitted with shortness of breath and fluid overload after missing dialysis on Friday he was dialyzed on Friday and discharged yesterday with instructions to get his scheduled dialysis today. He reports he was feeling well last night and until this morning when he woke up. Warts he got acutely short of breath this morning and could not catch his breath. He is coughing and reports it is productive of thick green sputum he was reportedly satting 60 in the 60s on 3 L nasal cannula and the squad. This improved to 85% on CPAP in the emergency department. Evaluation in emergency department included a chest x-ray which showed fluid overload and pulmonary edema. EKG showed sinus tachycardia heart rate [address] elevations. His hyponatremic with sodium of 126 consistent with fluid overload. Creatinine at baseline of 2.86. Elevated 0.05, and BNP significantly elevated at 1960 up from previous 2 days ago of 1342. Nephrology and dialysis were consulted immediately and patient went immediately to dialysis. On assessment is alert and oriented, in no distress. Heart is regular rate and rhythm lungs sound diffusely rhonchorous. He is satting 95% on oxygen mask 15 L. Past Med Surg Social Fam HX - Past Medical History Medical history: arthritis, CHF, COPD, coronary artery disease, dialysis, GERD, hyperlipidemia, hypertension, myocardial infarction, osteoporosis, peripheral artery disease, renal disease, other Psychiatric history: anxiety, bipolar, depression, other - Past Surgical History Surgical History: non-contributory, vascular surgery, other - Social History Smoking Status: Current every day smoker Smokeless Tobacco Status: Yes Alcohol use: occasionally Drug use: marijuana, other - Family History Mother Hx Family Cardiac Disorders: Yes Father Hx Family Cardiac Disorders: Yes Internal Medicine - H&P: Meds Albuterol Sulfate [Proair Respiclick] 2 puff IH Q4H PRN 10/02/15 [History] Citalopram [CeleXA] 40 mg PO DAILY 10/02/15 [History] Fluticasone/Salmeterol [Advair 250-50 Diskus] 1 puff IH BID 10/02/15 [History] Furosemide [Lasix] 40 mg PO BID 10/02/15 [History] Hydroxyzine HCl 25 mg PO TID 10/02/15 [History] Lidocaine Patch [Lidoderm 5% patch] 1 patch TP DAILY 10/02/15 [History] Isosorbide MONOnitrate (24 HR) [Imdur] 30 mg PO DAILY #30 tab.er.24h 09/03/16 [ Rx] Aspirin 81 mg PO DAILY 10/04/16 [History] Ferrous Sulfate [Iron] 325 mg PO DAILY 10/04/16 [History] Gabapentin [Neurontin] 800 mg PO QID 10/04/16 [History] Carvedilol [Coreg] 6.25 mg PO BID 11/03/16 [History] Ergocalciferol (VITAMIN D2) [Vitamin D2] 50,000 unit PO QWEEK 11/03/16 [History] Lisinopril [Zestril] 10 mg PO DAILY 11/03/16 [History] Simvastatin [Zocor] 40 mg PO HS 11/03/16 [History] Tizanidine HCl [Zanaflex] 4 mg PO TID 11/03/16 [History] Metolazone [Zaroxolyn] 2.5 mg PO DAILY #30 tablet 11/04/16 [Rx] Nicotine Patch [Nicoderm] 21 mg TD DAILY #30 patch.td24 11/04/16 [Rx] Ipratropium/Albuterol Sulfate [Combivent Respimat Inhal [place]] 1 puff IH QID 04/28 [History] HYDROcodone/Acet 5/325 mg [[place] 5-325 mg] 1 tab PO Q6H PRN #10 tablet 11/21/16 [Rx] Allergies potassium Adverse Reaction (Verified 11/03/16 14:08) Vomiting prednisone Adverse Reaction (Verified 10/04/16 08:30) Vomiting All Systems PM: A 10-system review of systems was performed and is negative for pertinent findings except as documented above in the HPI. - Constitutional Constitutional: no chills, no fever(s), no night sweats - EENT Eyes: no change in vision, no discharge, no pain, no photophobia Ears: no ear discharge, no ear pain, no tinnitus Nose, mouth and throat: no dysphagia, no nasal discharge, no neck pain, no sore throat - Cardiovascular Cardiovascular ROS IM: dyspnea, dyspnea on exertion, no chest pain, no diaphoresis, no lightheadedness, no palpitations, no syncope - Respiratory Respiratory: cough, dyspnea, dyspnea on exertion, excessive phlegm production, no wheezing - Gastrointestinal Gastrointestinal: no abdominal pain, no diarrhea, no hematemesis, no hematochezia, no melena, no nausea, no vomiting - Musculoskeletal Musculoskeletal ROS IM: no numbness, no tingling - Integumentary Integumentary IM: no rash, no unusual bruising - Neurological Neurological ROS: no confusion, no convulsions, no focal weakness, no numbness, no tingling, no tremor(s) - Hematologic/Lymphatic Hematologic/Lymphatic: no easy bruising - Constitutional Vitals: Temp Pulse Resp BP Pulse Ox 98.2 F 85 16 137/95 99 11/22/16 13:36 11/22/16 13:36 11/22/16 13:36 11/22/16 13:36 11/22/16 13:36 General appearance: Present: A&O X 3, no acute distress - Head Head exam: Present: atraumatic, normocephalic - Eye Eye exam: Present: PERRL, conjuntiva pink, sclera anicteric Pupils: Present: PERRL - Neck Neck exam general surgery: Present: supple, trachea midline. Absent: lymphadenopathy - Respiratory Respiratory exam: Present: rhonchi, wheezes. Absent: accessory muscle use, rales, respiratory distress - Cardiovascular Cardiovascular exam: Present: RRR, +S1, +S2. Absent: diastolic murmur, gallop, rubs, systolic murmur - GI/Abdominal GI/Abdominal exam: Present: normal bowel sounds, soft, no peritoneal signs. Absent: distended, tenderness - Extremities Exam Extremities exam: Present: pedal edema (+2 BLE edema), warm, radial pulses palpable and symetrical. Absent: calf tenderness, cyanotic - Neurological Exam Neurological exam: Present: CN II-XII intact, oriented X3, no focal deficits. Absent: facial droop, speech deficit - Skin Skin exam: Present: dry, intact Internal Med - H&P Results - Labs CBC & Chem 7: 11/22/16 07:59 11/22/16 07:59 Labs: All Lab Results (24 Hours) 11/22/16 11/22/16 11/22/16 Range/Units 07:59 07:59 07:59 WBC 13.5 H (4.3-11.1) K/mcL RBC 3.25 L (4.19-5.50) M/mcL Hgb 9.4 L (12.9-16.9) g/dL Hct 29.4 L (37.5-50.1) % MCV 90.5 (83.0-100.0) fL MCH 28.9 (28.0-33.3) pg MCHC 32.0 (31.6-35.5) g/dL RDW 14.6 H (11.5-14.5) % Plt Count 317 (140-400) K/mcL MPV 9.0 L (9.4-12.4) fL Immature Gran % 0.5 (0-4) % Seg Neutrophils % 65.5 % Lymphocytes % 26.3 % Monocytes % 5.8 % Eosinophils % 1.4 % Basophils % 0.5 % Neutrophils # 8.8 (1.6-8.9) K/mcL Lymphocytes # 3.6 (0.6-4.6) K/mcL Monocytes # 0.8 (0.0-1.3) K/mcL Eosinophils # 0.2 (0.0-0.6) K/mcL Basophils # 0.1 (0.0-0.2) K/mcL Sodium 126 L D (136-145) mEq/L Potassium 4.2 (3.5-4.5) mEq/L Chloride 91 L (98-109) mEq/L Carbon Dioxide 26 (19-29) mEq/L BUN 25 (8-26) mg/dL Creatinine 2.86 H (0.72-1.25) mg/dL Est GFR ( Amer) 29 L (> 60) Est GFR (Non-Af Amer) 24 L (> 60) BUN/Creatinine Ratio 9 (6-26) Glucose 85 (70-99) mg/dL Calculated Osmolality 266 L (280-300) Calcium 8.6 (8.6-10.8) mg/dL Troponin I 0.05 H* (0-0.03) ng/mL B-Natriuretic Peptide (0-100) pg/mL 11/22/16 Range/Units 07:59 WBC (4.3-11.1) K/mcL RBC (4.19-5.50) M/mcL Hgb (12.9-16.9) g/dL Hct (37.5-50.1) % MCV (83.0-100.0) fL MCH (28.0-33.3) pg MCHC (31.6-35.5) g/dL RDW (11.5-14.5) % Plt Count (140-400) K/mcL MPV (9.4-12.4) fL Immature Gran % (0-4) % Seg Neutrophils % % Lymphocytes % % Monocytes % % Eosinophils % % Basophils % % Neutrophils # (1.6-8.9) K/mcL Lymphocytes # (0.6-4.6) K/mcL Monocytes # (0.0-1.3) K/mcL Eosinophils # (0.0-0.6) K/mcL Basophils # (0.0-0.2) K/mcL Sodium (136-145) mEq/L Potassium (3.5-4.5) mEq/L Chloride (98-109) mEq/L Carbon Dioxide (19-29) mEq/L BUN (8-26) mg/dL Creatinine (0.72-1.25) mg/dL Est GFR ( Amer) (> 60) Est GFR (Non-Af Amer) (> 60) BUN/Creatinine Ratio (6-26) Glucose (70-99) mg/dL Calculated Osmolality (280-300) Calcium (8.6-10.8) mg/dL Troponin I (0-0.03) ng/mL B-Natriuretic Peptide 1960 H (0-100) pg/mL
[2016-11-22] MEDS ORDERED: Albuterol 2.5 MG/3 ML NEBULIZER IH PRN (14:15)
[2016-11-22] MEDS: Isosorbide MONOnitrate (24 HR) 30 MG TAB.ER.24H PO SCH (14:44)
[2016-11-22] MEDS: tiZANidine 4 MG TABLET PO SCH ×2 (14:44→21:50)
[2016-11-22] MEDS: metOLazone 2.5 MG TABLET PO SCH (14:44)
[2016-11-22] MEDS: Furosemide 40 MG TABLET PO SCH ×2 (14:45→21:50)
[2016-11-22] MEDS: Nicotine 21 MG PATCH.TD24 TD SCH (14:45)
[2016-11-22] MEDS: hydrOXYzine pamoate 25 MG CAPSULE PO SCH ×2 (14:45→21:50)
[2016-11-22] MEDS: *HR* HYDROcodone/Acet 5/325 mg TABLET PO PRN ×2 (14:48→22:23)
[2016-11-22] MEDS: Ipratropium 1 PUFF INHALER IH SCH (16:13)
[2016-11-22] MEDS: Gabapentin 400 MG CAPSULE PO SCH ×2 (16:32→21:50)
[2016-11-22] MEDS: *HR* Heparin 5,000 UNIT/ML VIAL SQ SCH (18:09)
[2016-11-23] MEDS: Ipratropium 1 PUFF INHALER IH SCH ×5 (00:23→22:29)
[2016-11-23] MEDS: Budesonide/Formoterol 80/4.5 MDI IH SCH ×3 (00:23→22:29)
[2016-11-23] MEDS: *HR* Heparin 5,000 UNIT/ML VIAL SQ SCH ×2 (06:13→17:28)
[2016-11-23] MEDS: *HR* HYDROcodone/Acet 5/325 mg TABLET PO PRN ×3 (06:18→20:59)
[2016-11-23 07:00] LABS: Basophils % 0.5 %; Eosinophils # 0.2 K/mcL (0.0-0.6); Hematocrit 24.4 % (37.5-50.1); Hemoglobin 8.1 g/dL (12.9-16.9); Immature Granulocytes % 0.4 % (0-4); Lymphocytes # 3.3 K/mcL (0.6-4.6); Lymphocytes % 40.9 %; Mean Corpuscular HGB Conc 33.2 g/dL (31.6-35.5); Mean Corpuscular Hemoglobin 29.8 pg (28.0-33.3); Mean Corpuscular Volume 89.7 fL (83.0-100.0); Mean Platelet Volume 9.6 fL (9.4-12.4); Monocytes # 0.6 K/mcL (0.0-1.3); Monocytes % 7.3 %; Platelet Count 232 K/mcL (140-400); Red Blood Count 2.72 M/mcL (4.19-5.50); Red Cell Distribution Width 14.8 % (11.5-14.5); Segmented Neutrophils % 48.9 %
[2016-11-23 07:12] LABS: Calcium 8.3 mg/dL (8.6-10.8); Potassium 3.5 mEq/L (3.5-4.5)
[2016-11-23] MEDS: Furosemide 40 MG TABLET PO SCH ×2 (08:48→20:59)
[2016-11-23] MEDS: Gabapentin 400 MG CAPSULE PO SCH ×4 (08:48→20:59)
[2016-11-23] MEDS: Isosorbide MONOnitrate (24 HR) 30 MG TAB.ER.24H PO SCH (08:48)
[2016-11-23] MEDS: metOLazone 2.5 MG TABLET PO SCH (08:48)
[2016-11-23] MEDS: Aspirin 81 MG TAB.CHEW PO SCH (08:48)
[2016-11-23] MEDS: Nicotine 21 MG PATCH.TD24 TD SCH (08:49)
[2016-11-23] MEDS: tiZANidine 4 MG TABLET PO SCH ×3 (08:49→20:59)
[2016-11-23] MEDS: hydrOXYzine pamoate 25 MG CAPSULE PO SCH ×3 (08:49→20:59)
[2016-11-23] MEDS ORDERED: 0.9 % Sodium Chloride 250 ML IV PRN (09:59)
[2016-11-23] MEDS ORDERED: *HR* Heparin 10,000 UNIT/10 ML VIAL IV PRN (09:59)
--- NOTE | 2016-11-23 10:00 | Cardiology Consult Note ---
<Babar Trinidad - Last Filed: 11/23/16 10:03> Date of Encounter: 11/23/16 Time of Encounter: 09:56 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 Plan (1) CHF exacerbation Current Visit: Yes Status: Acute Diastolic CHF/fluid volume overload in setting of mod-severe ischemic MR and severe 3V CAD, ESRD on dialysis. Patient presented with acute shortness of breath, satting 60% on 3 L nasal cannula, requiring emergent dialysis. BNP 1960 elevated from previous of 1342 in recent days. CXR showed fluid overload and pulmonary edema. Echocardiogram in August 2016 showed moderate to severe mitral regurgitation and EF 55-60%. LHC August 2016 showed severe three-vessel CAD mild to moderate left ventricular dysfunction EF 45% Continue home doses of Lasix and metolazone. HD to optimize fluid status. Planned for ultrafiltration today. No further recommendations. Per pt, [facility] recommends 3 vessel CABG and MV replacement, but they will not do surgery until he stops smoking. Anticipate sign off once seen and evaluated by Dr. Feliciano. Qualifiers: Congestive heart failure type: diastolic Qualified Code(s): I50.33 - Acute on chronic diastolic (congestive) heart failure (2) Elevated troponin Current Visit: No Status: Acute 0.05, 0.06, 0.06 in setting of ESRD on dialysis, CHF/fluid volume overload, hypoxia. Likely demand ischemia, nondiagnostic for ACS. Pt denies chest pain. Continue ASA, Statin, BB, Nitrates. (3) Fluid overload Current Visit: Yes Status: Acute Continue diuretics. Hemodialysis and ultrafiltration for fluid removal. Qualifiers: Hypervolemia type: unspecified Qualified Code(s): E87.70 - Fluid overload, unspecified (4) ESRD (end stage renal disease) Current Visit: No Status: Acute On dialysis. Nephrology following. (5) Mitral regurgitation Current Visit: Yes Status: Acute Moderate-severe MR on ROSITA, ischemic in nature. Follow-up with [facility] regarding CABG and MVR. Qualifiers: Cardiac valve disease etiology: etiology unspecified Qualified Code(s): I34.0 - Nonrheumatic mitral (valve) insufficiency (6) Anemia Current Visit: No Status: Chronic HGB 8.1. Likely anemia of chronic disease. No evidence of bleeding. Continue to monitor. Qualifiers: Anemia type: unspecified type Qualified Code(s): D64.9 - Anemia, unspecified (7) CAD (coronary artery disease) Current Visit: No Status: Chronic Continue ASA, Statin, BB, nitrates. Needs 3V CABG, per pt after evaluation at [facility]--needs to quit smoking first. Qualifiers: Coronary Disease-Associated Artery/Lesion type: [place] artery [place] vs. transplanted heart: [place] heart Associated angina: angina presence unspecified Qualified Code(s): I25.10 - Atherosclerotic heart disease of [place] coronary artery without angina pectoris Discussion w patient/family: The assessment and plan as outlined above was discussed with the patient and/or family members who expressed understanding and agreement. All questions were answered. Thank you for involving us in the care of your patient. Please call with any questions. I will discuss all the above with Dr. Feliciano and make changes as necessary. History of Present Illness Consult date: 11/23/16 Requesting physician: Stella Wilson Consult reason: CHF, elevated troponin Chief complaint: Dyspnea History of present illness: Mr. Castro is a 51 year old male with HTN, HLD, previous systolic CHF since recovered, ESRD on dialysis, COPD on home O2, Severe 3 vessel CAD and moderate- severe MR, ischemic appearing in nature, who presented to the emergency department yesterday with shortness of breath. He was recently admitted with shortness of breath and fluid overload after missing dialysis on Friday he was dialyzed on Friday and discharged . He reports Friday morning he became acutely short of breath, had coughing--productive of thick green sputum. Reportedly had O2 in 60s on 3 L nasal cannula, improved to 85% on CPAP in ED. CXR shows fluid overload and pulmonary edema. BNP elevated at 1960, 2 days ago was 1342. Nephrology and dialysis were consulted immediately and patient went immediately to dialysis. Plan for UF today. Troponins 0.05, 0.06, 0.06. He denies chest pain. Reports he was seen as outpt recently at [facility] and they want him to undergo 3 vessel CABG with mitral valve replacement, but will not do the surgery until he stops smoking. He is using nicotine patches trying to quit and is down to 1/2 PPD. Reports lower extremity edema no worse from baseline. Past Med Surg Social Fam HX - Past Medical History Medical history: arthritis, cardiomyopathy, CHF, COPD, coronary artery disease, dialysis, GERD, hyperlipidemia, hypertension, myocardial infarction, osteoporosis, peripheral artery disease, renal disease, other Psychiatric history: anxiety, bipolar, depression, other - Past Surgical History Surgical History: non-contributory, vascular surgery, other - Social History Smoking Status: Current every day smoker Smokeless Tobacco Status: Yes Alcohol use: occasionally Drug use: marijuana, other - Family History Mother Hx Family Cardiac Disorders: Yes Father Hx Family Cardiac Disorders: Yes Medications and Allergies Albuterol Sulfate [Proair Respiclick] 2 puff IH Q4H PRN 10/02/15 [History] Citalopram [CeleXA] 40 mg PO DAILY 10/02/15 [History] Fluticasone/Salmeterol [Advair 250-50 Diskus] 1 puff IH BID 10/02/15 [History] Furosemide [Lasix] 40 mg PO BID 10/02/15 [History] Hydroxyzine HCl 25 mg PO TID 10/02/15 [History] Lidocaine Patch [Lidoderm 5% patch] 1 patch TP DAILY 10/02/15 [History] Isosorbide MONOnitrate (24 HR) [Imdur] 30 mg PO DAILY #30 tab.er.24h 09/03/16 [ Rx] Aspirin 81 mg PO DAILY 10/04/16 [History] Ferrous Sulfate [Iron] 325 mg PO DAILY 10/04/16 [History] Gabapentin [Neurontin] 800 mg PO QID 10/04/16 [History] Carvedilol [Coreg] 6.25 mg PO BID 11/03/16 [History] Ergocalciferol (VITAMIN D2) [Vitamin D2] 50,000 unit PO QWEEK 11/03/16 [History] Lisinopril [Zestril] 10 mg PO DAILY 11/03/16 [History] Simvastatin [Zocor] 40 mg PO HS 11/03/16 [History] Tizanidine HCl [Zanaflex] 4 mg PO TID 11/03/16 [History] Metolazone [Zaroxolyn] 2.5 mg PO DAILY #30 tablet 11/04/16 [Rx] Nicotine Patch [Nicoderm] 21 mg TD DAILY #30 patch.td24 11/04/16 [Rx] Ipratropium/Albuterol Sulfate [Combivent Respimat Inhal [place]] 1 puff IH QID 04/28 [History] HYDROcodone/Acet 5/325 mg [[employer] 5-325 mg] 1 tab PO Q6H PRN #10 tablet 11/21/16 [Rx] Allergies potassium Adverse Reaction (Verified 11/03/16 14:08) Vomiting prednisone Adverse Reaction (Verified 10/04/16 08:30) Vomiting All Systems Review: A 10-system review of systems was performed and is negative for pertinent findings except as documented above in the HPI. - Cardiovascular Cardiovascular: as per HPI, dyspnea at rest, dyspnea on exertion - Respiratory Respiratory: cough, dyspnea Physical Examination Vital Signs, Last 4 Hours Temp Pulse Resp BP Pulse Ox 11/23/16 06:57 98.5 F 73 16 161/80 98 Vital Signs Temp Pulse Resp BP Pulse Ox 11/23/16 06:57 98.5 F 73 16 161/80 98 11/23/16 04:16 98.1 F 80 20 157/81 94 L 11/23/16 03:35 17 90 L 11/23/16 00:24 98.3 F 68 20 148/81 90 L 11/23/16 00:23 20 90 L 11/22/16 21:22 98.2 F 76 20 163/88 97 11/22/16 16:13 18 97 11/22/16 15:30 98.2 F 69 20 108/56 99 11/22/16 13:36 98.2 F 85 16 137/95 99 11/22/16 12:45 97.1 F L 16 149/82 11/22/16 12:40 140/75 11/22/16 12:30 151/79 11/22/16 12:15 124/71 11/22/16 12:00 125/70 11/22/16 11:45 135/72 11/22/16 11:33 99 11/22/16 11:30 119/61 11/22/16 11:15 122/70 11/22/16 11:00 118/71 11/22/16 10:45 123/71 11/22/16 10:30 119/71 11/22/16 10:27 97.1 F L 67 16 135/72 100 11/22/16 10:15 123/69 Intake and Output 11/22/16 11/23/16 11/23/16 23:59 07:59 15:59 Intake Total 0 / 0 0 / 0 Output Total 0 / 0 600 / 600 500 / 500 Balance 0 / 0 -600 / -600 -500 / -500 Intake: Oral 0 / 0 0 / 0 Output: Urine 0 / 0 600 / 600 500 / 500 Other: Meal npo Weight 80.649 kg Blood Glucose* 79 83 Patient Weight 11/23/16 23:59 Weight 80.649 kg General: Conversant, No Apparent Distress HEENT: Atraumatic, Normocephaly, Mucus Membranes Moist Neck: Normal carotid pulses Cardiac: Reg Rate and Rhythm, Normal S1 and S2, No Murmur Lungs: Other (rhonchi) Neuro: Alert and responsive, No focal deficits noted Abdomen: Soft, Non-Tender Skin: No rashes noted on visualized skin Musculoskeletal: No Chest Wall Tenderness Extremities: Other (+1 BLE edema) Results 11/23/16 06:36 11/23/16 06:36 Lab Results 11/22/16 11/22/16 11/23/16 14:29 20:29 06:36 WBC 8.1 Hgb 8.1 L Hct 24.4 L Plt Count 232 Sodium Potassium Chloride Carbon Dioxide BUN Creatinine Glucose Calcium Troponin I 0.06 H* 0.06 H* 11/23/16 06:36 WBC Hgb Hct Plt Count Sodium 135 L D Potassium 3.5 Chloride 96 L Carbon Dioxide 31 H BUN 19 Creatinine 2.26 H Glucose 74 Calcium 8.3 L Troponin I Short CBC 11/23/16 Range/Units 06:36 WBC 8.1 (4.3-11.1) K/mcL Hgb 8.1 L (12.9-16.9) g/dL Hct 24.4 L (37.5-50.1) % Plt Count 232 (140-400) K/mcL Neutrophils # 4.0 (1.6-8.9) K/mcL BMP 11/23/16 Range/Units 06:36 Sodium 135 L D (136-145) mEq/L Potassium 3.5 (3.5-4.5) mEq/L Chloride 96 L (98-109) mEq/L Carbon Dioxide 31 H (19-29) mEq/L BUN 19 (8-26) mg/dL Creatinine 2.26 H (0.72-1.25) mg/dL Glucose 74 (70-99) mg/dL Calcium 8.3 L (8.6-10.8) mg/dL Cardiac Enzymes 11/22/16 11/22/16 Range/Units 20:29 14:29 Troponin I 0.06 H* 0.06 H* (0-0.03) ng/mL Active Medications Acetaminophen (Tylenol) 650 mg PO Q6HR PRN PRN Reason: Mild Pain (1-3) Stop: 05/24/17 13:58 Acetaminophen/Hydrocodone Bitart ([employer] 5-325 Mg) 1 tab PO Q6H PRN PRN Reason: Pain Stop: 05/24/17 14:02 Last Admin: 11/23/16 06:18 Dose: 1 tab Albuterol Sulfate (Proventil Neb) 2.5 mg IH Q2H PRN PRN Reason: Shortness Of Breath/Wheezing Stop: 05/24/17 14:16 Aspirin (Aspirin) 81 mg PO DAILY [facility] Stop: 05/25/17 09:01 Last Admin: 11/23/16 08:48 Dose: 81 mg Budesonide/Formoterol Fumarate (Symbicort) 2 puff IH BIDR [facility] Stop: 05/24/17 22:01 Last Admin: 11/23/16 00:23 Dose: Not Given Carvedilol (Coreg) 6.25 mg PO BID [facility] PRN Reason: Protocol Stop: 05/24/17 14:16 Last Admin: 11/23/16 08:49 Dose: 6.25 mg Citalopram Hydrobromide (Celexa) 40 mg PO DAILY [facility] Stop: 05/24/17 14:16 Last Admin: 11/23/16 08:48 Dose: 40 mg Dextrose/Water (Dextrose 50% (Syg)) 25 ml IVP AD PRN PRN Reason: Hypoglycemia Stop: 05/24/17 11:17 Docusate Sodium (Colace) 100 mg PO BID PRN PRN Reason: Constipation Stop: 05/24/17 13:58 Ferrous Sulfate (Ferrous Sulfate) 325 mg PO DAILY [facility] Stop: 05/25/17 09:01 Last Admin: 11/23/16 08:48 Dose: 325 mg Furosemide (Lasix) 40 mg PO BID [facility] Stop: 05/24/17 14:16 Last Admin: 11/23/16 08:48 Dose: 40 mg Gabapentin (Neurontin) 800 mg PO QID [facility] Stop: 05/24/17 17:01 Last Admin: 11/23/16 08:48 Dose: 800 mg Glucagon (Glucagen) 1 mg IM ONCE PRN PRN Reason: Hypoglycemia Stop: 05/24/17 11:17 Glucose (Gluctose) 15 gm PO ONCE PRN PRN Reason: Hypoglycemia Stop: 05/24/17 11:17 Glucose (Gluctose) 30 gm PO ONCE PRN PRN Reason: Hypoglycemia Stop: 05/24/17 11:17 Heparin Sodium (Porcine) (Heparin) 5,000 unit SQ Q12HCO [facility] Stop: 05/24/17 19:01 Last Admin: 11/23/16 06:13 Dose: 5,000 unit Heparin Sodium (Porcine) (Heparin) 0 unit IV ONCE PRN PRN Reason: Hemodialysis Catheter Packing Stop: 11/23/16 10:00 Hydroxyzine Pamoate (Hydroxyzine Pamoate) 25 mg PO TID [facility] Stop: 05/24/17 15:01 Last Admin: 11/23/16 08:49 Dose: 25 mg Sodium Chloride (0.9 % Sodium Chloride) 250 mls @ 999 mls/hr IV ONCE PRN PRN Reason: Hypotension Stop: 05/24/17 08:03 Sodium Chloride (0.9 % Sodium Chloride) 1,000 mls @ 0 mls/hr PRIME .Q0M [facility] PRN Reason: As Directed Stop: 05/24/17 08:16 Dextrose (Dextrose 5%) 1,000 mls @ 100 mls/hr IV CONT PRN PRN Reason: HYPOGLYCEMIA Stop: 05/24/17 11:17 Sodium Chloride (0.9 % Sodium Chloride) 250 mls @ 999 mls/hr IV ONCE PRN PRN Reason: Hypotension Stop: 05/25/17 10:00 Ipratropium [place] (Atrovent Inhaler) 2 puff IH [id number] [facility] Stop: 05/24/17 16:01 Last Admin: 11/23/16 04:07 Dose: Not Given Isosorbide Mononitrate (Imdur) 30 mg PO DAILY [facility] Stop: 05/24/17 14:16 Last Admin: 11/23/16 08:48 Dose: 30 mg Lidocaine HCl (Lidoderm 5% Patch) 1 each TP DAILY [facility] Stop: 05/25/17 09:01 Last Admin: 11/23/16 08:49 Dose: 1 each Metolazone (Zaroxolyn) 2.5 mg PO DAILY [facility] Stop: 05/24/17 14:16 Last Admin: 11/23/16 08:48 Dose: 2.5 mg Naloxone HCl (Narcan) 0.4 mg IVP Q2MIN PRN PRN Reason: Opioid Reversal Stop: 05/24/17 13:58 Nicotine (Nicoderm) 21 mg TD DAILY [facility] PRN Reason: Protocol Stop: 05/24/17 14:16 Last Admin: 11/23/16 08:49 Dose: 21 mg Simvastatin (Zocor) 40 mg PO HS [facility] PRN Reason: Protocol Stop: 05/24/17 21:01 Last Admin: 11/22/16 21:50 Dose: 40 mg Tizanidine HCl (Zanaflex) 4 mg PO TID [facility] Stop: 05/24/17 15:01 Last Admin: 11/23/16 08:49 Dose: 4 mg - Imaging and Cardiology Chest Xray: report reviewed Echo: report reviewed Cardiac cath: report reviewed - EKG Interpretation EKG results cardiology: personally reviewed, other (12 hour tele AVG HR 71, no significant pauses or arrhythmias.) Consult Discharge Plan - Plan Referrals: Nallely Hanna, FIRE INVESTIGATOR [Primary Care Provider] - <Feng Feliciano - Last Filed: 11/23/16 12:21> Date of Encounter: 11/23/16 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 Plan Discussion w patient/family: The assessment and plan as outlined above was discussed with the patient and/or family members who expressed understanding and agreement. All questions were answered. Thank you for involving us in the care of your patient. Please call with any questions. History of Present Illness History of present illness: Mr. Castro is a 51 year old male All Systems Review: A 10-system review of systems was performed and is negative for pertinent findings except as documented above in the HPI. Physical Examination Vital Signs, Last 4 Hours Temp Resp BP Pulse Ox 11/23/16 11:45 135/74 11/23/16 11:30 150/75 11/23/16 11:15 98.5 F 16 135/73 11/23/16 10:10 16 94 L 11/23/16 09:15 98 Results 11/23/16 06:36 11/23/16 06:36 Lab Results 11/22/16 11/22/16 11/23/16 14:29 20:29 06:36 WBC 8.1 Hgb 8.1 L Hct 24.4 L Plt Count 232 Sodium Potassium Chloride Carbon Dioxide BUN Creatinine Glucose Calcium Troponin I 0.06 H* 0.06 H* 11/23/16 06:36 WBC Hgb Hct Plt Count Sodium 135 L D Potassium 3.5 Chloride 96 L Carbon Dioxide 31 H BUN 19 Creatinine 2.26 H Glucose 74 Calcium 8.3 L Troponin I Attestation: My signature below is to certify that this patient is under my care and that I, or nurse practitioner, or a physician's household assistant working with me, has a face-to -face encounter with this patient. Agree with note Complicated case - no good options for now. Needs close Cardiac follow up No additional testing. Will sign off.
[2016-11-23] MEDS ORDERED: 0.9 % Sodium Chloride 2,000 ML ONE (10:17)
--- NOTE | 2016-11-23 10:46 | Nephrology Progress Note ---
Date of Encounter: 11/23/16 Time of Encounter: 10:40 - 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 Plan (1) ESRD (end stage renal disease) Current Visit: No Status: Acute Continue UF for 2 hrs today with goal UF approx. 3kg as tolerated Next HD on friday if still hospitalized (2) CHF exacerbation Current Visit: Yes Status: Acute Continue diuretics, may consider increasing lasix to 80mg bid upon discharge to aid improved UOP Continue UF today Qualifiers: Congestive heart failure type: diastolic Qualified Code(s): I50.33 - Acute on chronic diastolic (congestive) heart failure (3) Hyponatremia Current Visit: Yes Status: Acute Sodium normalized at 135 after HD yesterday (4) Anemia Current Visit: No Status: Chronic Hgb decreasing, will dose with aranesp today Qualifiers: Anemia type: unspecified type Qualified Code(s): D64.9 - Anemia, unspecified Subjective Interval history: Pt seen and examined on HD feeling much much better. No SOB. Objective - Vital Signs Vital signs: Vital Signs Temp Pulse Resp BP Pulse Ox 11/23/16 10:10 16 94 L 11/23/16 09:15 98 11/23/16 06:57 98.5 F 73 16 161/80 98 11/23/16 04:16 98.1 F 80 20 157/81 94 L 11/23/16 03:35 17 90 L 11/23/16 00:24 98.3 F 68 20 148/81 90 L 11/23/16 00:23 20 90 L 11/22/16 21:22 98.2 F 76 20 163/88 97 11/22/16 16:13 18 97 11/22/16 15:30 98.2 F 69 20 108/56 99 11/22/16 13:36 98.2 F 85 16 137/95 99 11/22/16 12:45 97.1 F L 16 149/82 11/22/16 12:40 140/75 11/22/16 12:30 151/79 11/22/16 12:15 124/71 11/22/16 12:00 125/70 11/22/16 11:45 135/72 11/22/16 11:33 99 11/22/16 11:30 119/61 11/22/16 11:15 122/70 11/22/16 11:00 118/71 11/22/16 10:45 123/71 Intake and Output 11/22/16 11/23/16 11/23/16 23:59 07:59 15:59 Intake Total 0 / 0 0 / 0 Output Total 0 / 0 600 / 600 600 / 600 Balance 0 / 0 -600 / -600 -600 / -600 Intake: Oral 0 / 0 0 / 0 Output: Urine 0 / 0 600 / 600 600 / 600 Other: Meal npo Weight 80.649 kg Blood Glucose* 79 83 Patient Weight 11/23/16 23:59 Weight 80.649 kg - General Appearance General appearance: Present: chronically ill (NAD) EENT: Present: ATNC, mucous membranes moist Neck: Present: no JVD, supple Additional Comments: good areation ant bilat Cardiology: Present: no edema, normal S1, normal S2 Dialysis Vascular Access: Venous Catheter (permcath) Gastrointestinal: Present: no tenderness, no guarding Integumentary: Present: warm and dry Neurologic: Present: no focal deficit Musculoskeletal: Present: no deformities Psychiatric: Present: mood/affect appropriate - Lab 11/23/16 06:36 11/23/16 06:36 Most recent lab results Calcium 8.3 mg/dL (8.6-10.8) L 11/23/16 06:36 - VTE Documentation of Mechanical Device: Graduated compression elastic hosiery Consult Discharge Plan - Plan Referrals: Nallely Hanna, DROP CREW LABORER [Primary Care Provider] -
--- NOTE | 2016-11-23 14:18 | Internal Med Progress Note ---
Date of Encounter: 11/23/16 Time of Encounter: 14:09 - Subjective Interval history: Mr. Castro is a 51 year old male with a past medical hx of triple vessel CAD, CKD on dialysis MWF, DEE HTN Tobacco use COPD with O2 use. He presented with acute respiratory failure, secondary to etiology being multifactorial COPD, CHF, noncompliance with dialysis and oxygen and medications. Also noncompliance to CPAP at night. He received dialysis yesterday , renal has been consulted He reports marked improvement in his breathing, denies any other complaints at this time. Renal is on board. - Constitutional Vitals: Temp Pulse Resp BP Pulse Ox 98.5 F 73 16 143/72 94 L 11/23/16 13:26 11/23/16 06:57 11/23/16 13:26 11/23/16 13:26 11/23/16 10:10 General appearance: Present: A&O X 3, no acute distress Internal Medicine: Result - Labs CBC & Chem 7: 11/23/16 06:36 11/23/16 06:36 Labs: Short CBC 11/23/16 Range/Units 06:36 WBC 8.1 (4.3-11.1) K/mcL Hgb 8.1 L (12.9-16.9) g/dL Hct 24.4 L (37.5-50.1) % Plt Count 232 (140-400) K/mcL Neutrophils # 4.0 (1.6-8.9) K/mcL BMP 11/23/16 06:36 Sodium 135 L D Potassium 3.5 Chloride 96 L Carbon Dioxide 31 H BUN 19 Creatinine 2.26 H Glucose 74 Calcium 8.3 L Cardiac Enzymes 11/22/16 11/22/16 Range/Units 14:29 20:29 Troponin I 0.06 H* 0.06 H* (0-0.03) ng/mL - VTE Documentation of Mechanical Device: Graduated compression elastic hosiery Consult Discharge Plan - Plan Referrals: Nallely Hanna, MEKHI [Primary Care Provider] -
--- NOTE | 2016-11-23 14:19 | Event Note ---
Date of Encounter: 11/23/16 Time of Encounter: 14:18 Mr. Castro is a 51 year old male with a past medical hx of triple vessel CAD, CKD on dialysis MWF, DEE HTN Tobacco use COPD with O2 use. He presented with acute respiratory failure, secondary to etiology being multifactorial COPD, CHF, noncompliance with dialysis and oxygen and medications. Also noncompliance to CPAP at night. He received dialysis yesterday , renal has been consulted He reports marked improvement in his breathing, denies any other complaints at this time. Renal is on board. discussed about the importance of being on renal diet and fluid restriction.
[2016-11-23] MEDS ORDERED: Darbepoetin 100 MCG/0.5 ML SYRINGE SQ SCH (17:45)
[2016-11-24] MEDS: *HR* HYDROcodone/Acet 5/325 mg TABLET PO PRN ×3 (03:44→15:56)
[2016-11-24] MEDS: Ipratropium 1 PUFF INHALER IH SCH ×3 (04:25→15:13)
[2016-11-24] MEDS: *HR* Heparin 5,000 UNIT/ML VIAL SQ SCH (05:31)
[2016-11-24 08:25] LABS: Basophils # 0.1 K/mcL (0.0-0.2); Basophils % 0.6 %; Eosinophils # 0.3 K/mcL (0.0-0.6); Eosinophils % 3.4 %; Hematocrit 29.1 % (37.5-50.1); Hemoglobin 9.4 g/dL (12.9-16.9); Immature Granulocytes % 0.4 % (0-4); Lymphocytes # 3.1 K/mcL (0.6-4.6); Lymphocytes % 36.6 %; Mean Corpuscular HGB Conc 32.3 g/dL (31.6-35.5); Mean Corpuscular Volume 89.8 fL (83.0-100.0); Mean Platelet Volume 9.3 fL (9.4-12.4); Monocytes # 0.5 K/mcL (0.0-1.3); Monocytes % 6.4 %; Neutrophils # 4.5 K/mcL (1.6-8.9); Platelet Count 281 K/mcL (140-400); Red Blood Count 3.24 M/mcL (4.19-5.50); Red Cell Distribution Width 14.6 % (11.5-14.5); Segmented Neutrophils % 52.6 %
[2016-11-24 08:40] LABS: Calcium 8.7 mg/dL (8.6-10.8); Potassium 3.3 mEq/L (3.5-4.5)
[2016-11-24] MEDS: Budesonide/Formoterol 80/4.5 MDI IH SCH (09:16)
[2016-11-24] MEDS: tiZANidine 4 MG TABLET PO SCH ×2 (09:54→14:32)
[2016-11-24] MEDS: Aspirin 81 MG TAB.CHEW PO SCH (09:54)
[2016-11-24] MEDS: Nicotine 21 MG PATCH.TD24 TD SCH (09:54)
[2016-11-24] MEDS: hydrOXYzine pamoate 25 MG CAPSULE PO SCH ×2 (09:54→14:32)
[2016-11-24] MEDS: Isosorbide MONOnitrate (24 HR) 30 MG TAB.ER.24H PO SCH (09:54)
[2016-11-24] MEDS: Furosemide 40 MG TABLET PO SCH (09:54)
[2016-11-24] MEDS: metOLazone 2.5 MG TABLET PO SCH (09:54)
[2016-11-24] MEDS: Gabapentin 400 MG CAPSULE PO SCH ×2 (09:54→14:32)
[2016-11-24 11:31] VITALS: BP 164/74
--- NOTE | 2016-11-24 12:55 | Nephrology Progress Note ---
Date of Encounter: 11/24/16 Time of Encounter: 13:00 - 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 Plan (1) ESRD (end stage renal disease) Status: Acute next HD planned for tomorrow friday on outpatient. Compliance with HD strongly advised Fluid restriction also emphasized (2) CHF exacerbation Status: Acute Continue diuretics, may consider increasing lasix to 80mg bid upon discharge to aid improved UOP Qualifiers: Congestive heart failure type: diastolic Qualified Code(s): I50.33 - Acute on chronic diastolic (congestive) heart failure (3) Hyponatremia Status: Acute Sodium normalized at 135, will monitor (4) Anemia Status: Chronic Hgb improved at 9.4, s/p aranesp Qualifiers: Anemia type: unspecified type Qualified Code(s): D64.9 - Anemia, unspecified Subjective Interval history: Pt seen and examined feels much better after HD and UF in the past 2 days. No more SOB at this time. Objective - Vital Signs Vital signs: Vital Signs Temp Pulse Resp BP Pulse Ox 11/24/16 11:26 97.4 F L 63 18 164/74 94 L 11/24/16 09:16 16 99 11/24/16 07:19 97.8 F 72 16 160/92 99 11/24/16 04:17 97.8 F 74 22 182/84 99 11/23/16 23:54 98.9 F 78 20 144/78 92 L 11/23/16 20:07 98.8 F 76 20 164/75 99 11/23/16 16:13 16 96 11/23/16 16:06 98.3 F 72 16 159/81 96 11/23/16 13:26 98.5 F 16 143/72 11/23/16 13:15 133/68 11/23/16 13:00 128/71 Intake and Output 11/23/16 11/24/16 11/24/16 23:59 07:59 15:59 Intake Total 540 / 540 480 / 480 Output Total 400 / 400 650 / 650 650 / 650 Balance 140 / 140 -650 / -650 -170 / -170 Intake: Oral 540 / 540 480 / 480 Output: Urine 400 / 400 650 / 650 650 / 650 Other: Meal Breakfast Percent of Meal Consumed 100% Weight 77.746 kg Blood Glucose* 94 77 83 Patient Weight 11/24/16 23:59 Weight 77.746 kg - General Appearance General appearance: Present: chronically ill (NAD) EENT: Present: ATNC, mucous membranes moist Neck: Present: no JVD, supple Respiratory: Present: clear Cardiology: Present: edema, normal S1, normal S2 Dialysis Vascular Access: Venous Catheter Gastrointestinal: Present: no tenderness, no guarding Integumentary: Present: warm and dry Neurologic: Present: no focal deficit Musculoskeletal: Present: no deformities Psychiatric: Present: mood/affect appropriate - Lab 11/24/16 08:10 11/24/16 08:10 Most recent lab results Calcium 8.7 mg/dL (8.6-10.8) 11/24/16 08:10 - VTE Documentation of Mechanical Device: Graduated compression elastic hosiery Consult Discharge Plan - Plan Instructions: Heart Failure (DC), Fluid Restriction (DC) Referrals: Nallely Hanna MECHANICAL FITTER [Primary Care Provider] - (Web request has been sent.) Prescriptions: Aspirin 81 mg PO DAILY #30 tab.chew
--- NOTE | 2016-11-24 13:26 | Electrocardiograph Report ---
[place] [id number] Test Date: 2016-11-22 Pat Name: Steve Castro Department: 112 Room: 2A25 Gender: M School Physical Therapist: : [id number] Requested By: Willis Hampton Order Number: [id number] Reading MD: Mckayla Beckett Measurements Intervals [place] Rate: 70 P: 8 MT: 109 QRS: 64 QRSD: 90 T: 4 QT: 442 QTc: 464 Interpretive Statements SINUS RHYTHM WITH SHORT MT INTERVAL PROLONGED QT INTERVAL Electronically Signed On 11-24-2016 13:25:37 EST by Mckayla Beckett
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
== END 2016-11-24 15:59 | disposition home or self-care (01) ==
LOC: 2ANU 07:33 → EMEROO 07:33 → 2ANU 09:00
PROVIDERS: ADMIT Family Medicine; ATTEND Internal Medicine Endocrinology, Diabetes & Metabolism

== ENCOUNTER 2017-05-07 16:42 | Inpatient (IN) ==
[2017-05-07 17:57] LABS: Red Cell Distribution Width 13.7 % (11.5-14.5)
[2017-05-07 17:59] LABS: Hematocrit 29.6 % (37.5-50.1); Hemoglobin 10.3 g/dL (12.9-16.9); Immature Platelets 8.5 % (1.1-6.1); Mean Corpuscular HGB Conc 34.8 g/dL (31.6-35.5); Mean Corpuscular Hemoglobin 29.9 pg (28.0-33.3); Mean Platelet Volume 10.7 fL (9.4-12.4); Red Blood Count 3.44 M/mcL (4.19-5.50)
[2017-05-07 18:08] LABS: Alanine Aminotransferase < 6 Units/L (0-55); Albumin 2.7 g/dL (3.5-5.0); Albumin/Globulin Ratio 0.8 (1.1-2.2); Alkaline Phosphatase 81 Units/L (38-126); Aspartate Amino Transferase 54 Units/L (5-34); BUN/Creatinine Ratio 3 (6-26); Bilirubin,Total 0.6 mg/dL (0.2-1.2); Blood Urea Nitrogen 9 mg/dL (8-26); Calcium 8.5 mg/dL (8.6-10.8); Carbon Dioxide 20 mEq/L (19-29); Chloride 93 mEq/L (98-109); Globulin 3.6 g/dL (2.4-3.5); Glucose 306 mg/dL (70-99); Osmolality,Calculated 276 (280-300); Potassium 2.7 mEq/L (3.5-4.5); Sodium 128 mEq/L (136-145); Total Protein 6.3 g/dL (6.0-8.3); eGFR For African Americans 28 (> 60); eGFR For Non-African Americans 23 (> 60)
--- NOTE | 2017-05-07 18:13 | Emergency Department Note ---
Disposition Clinical Impression: Generalized weakness, Hypotension, Dyspnea Disposition: Still a Patient Condition: Undetermined Forms: Work/School Release, ED Satisfaction Letter General Adult HPI - General Chief complaint: ED General Medical Stated complaint: Low Bp From Dialysis Time Seen by Provider: 05/07/17 18:10 Source: patient, other Limitations: no limitations - History of Present Illness Pain Scale: 10 - Related Data Home Medications Medication Instructions Recorded Confirmed Albuterol Sulfate [Proair 2 puff IH Q4H PRN 10/02/15 11/22/16 Respiclick] Citalopram [CeleXA] 40 mg PO DAILY 10/02/15 11/22/16 Fluticasone/Salmeterol [Advair 1 puff IH BID 10/02/15 11/22/16 250-50 Diskus] Furosemide [Lasix] 40 mg PO BID 10/02/15 11/22/16 Lidocaine Patch [Lidoderm 5% patch] 1 patch TP DAILY 10/02/15 11/22/16 hydrOXYzine HCl [Hydroxyzine HCl] 25 mg PO TID 10/02/15 11/22/16 Ferrous Sulfate [Iron] 325 mg PO DAILY 10/04/16 11/22/16 Carvedilol [Coreg] 6.25 mg PO BID 11/03/16 11/22/16 Ergocalciferol (VITAMIN D2) 50,000 unit PO QWEEK 11/03/16 11/22/16 [Vitamin D2] Lisinopril [Zestril] 10 mg PO DAILY 11/03/16 11/22/16 Simvastatin [Zocor] 40 mg PO HS 11/03/16 11/22/16 Tizanidine HCl [Zanaflex] 4 mg PO TID 11/03/16 11/22/16 Ipratropium/Albuterol Sulfate 1 puff IH QID 11/19/16 11/22/16 [Combivent Respimat Inhal [place]] Previous Rx's Medication Instructions Recorded Isosorbide MONOnitrate (24 HR) 30 mg PO DAILY #30 tab.er.24h 09/03/16 [Imdur] Nicotine Patch [Nicoderm] 21 mg TD DAILY #30 patch.td24 11/04/16 metOLazone [Zaroxolyn] 2.5 mg PO DAILY #30 tablet 01/23/17 HYDROcodone/Acet 5/325 mg [S [place] 1 tab PO Q6H PRN #10 tablet 11/21/16 5-325 mg] Aspirin 81 mg PO DAILY #30 tab.chew 11/24/16 Cephalexin [Keflex] 500 mg PO TID #21 capsule 02/23/17 Allergies Allergy/AdvReac Type Severity Reaction Status Date / Time bee venom protein (honey bee) AdvReac Swelling Verified 05/07/17 16:52 of Lip/Tongue/Throat potassium AdvReac Vomiting Verified 05/07/17 16:52 prednisone AdvReac Vomiting Verified 05/07/17 16:52 Past Medical History - Past Medical History Medical history: Reports: arthritis, CHF, COPD, coronary artery disease, dialysis, GERD, hyperlipidemia, hypertension, myocardial infarction, osteoporosis, peripheral artery disease, renal disease, other Surgical history: Reports: non-contributory, vascular surgery, other Psychiatric history: Reports: anxiety, bipolar, depression, other - Social History Smoking Status: Current every day smoker Smokeless Tobacco Status: Yes Alcohol use: Reports: occasionally Drug use: Reports: marijuana, other Physical Exam - General Limitations: no limitations General appearance: alert Course Vital Signs Temperature 98.2 F 05/07/17 16:52 Pulse Rate 109 05/07/17 16:52 Respiratory Rate 20 05/07/17 16:52 Blood Pressure 101/63 05/07/17 16:52 O2 Sat by Pulse Oximetry 93 05/07/17 16:52 Temperature 98.2 F 05/07/17 16:52 Pulse Rate 97 05/07/17 18:24 Respiratory Rate 18 05/07/17 18:24 Blood Pressure 124/61 05/07/17 18:24 O2 Sat by Pulse Oximetry 96 05/07/17 18:24 Oxygen Delivery Oxygen Delivery Room Air Medical Decision Making - Lab Data Result diagrams: 05/07/17 17:42 05/07/17 17:42 Lab Results 05/07/17 05/07/17 05/07/17 Range/Units 17:42 17:42 17:42 WBC 12.9 H (4.3-11.1) K/mcL RBC 3.44 L (4.19-5.50) M/mcL Hgb 10.3 L (12.9-16.9) g/dL Hct 29.6 L (37.5-50.1) % MCV 86.0 (83.0-100.0) fL MCH 29.9 (28.0-33.3) pg MCHC 34.8 (31.6-35.5) g/dL RDW 13.7 (11.5-14.5) % Plt Count 99 L (140-400) K/mcL MPV 10.7 (9.4-12.4) fL Seg Neutrophils % 74.0 % Band Neutrophils % 22.0 H (0-4) % Lymphocytes % 2.0 % Monocytes % 2.0 % Neutrophils # 12.4 H (1.6-8.9) K/mcL Lymphocytes # 0.3 L (0.6-4.6) K/mcL Monocytes # 0.3 (0.0-1.3) K/mcL Platelet Estimate Decreased L (Normal) Immature Plt Fraction 8.5 H (1.1-6.1) % Sodium 128 L (136-145) mEq/L Potassium 2.7 L (3.5-4.5) mEq/L Chloride 93 L (98-109) mEq/L Carbon Dioxide 20 (19-29) mEq/L BUN 9 (8-26) mg/dL Creatinine 2.89 H (0.72-1.25) mg/dL Est GFR ( Amer) 28 L (> 60) Est GFR (Non-Af Amer) 23 L (> 60) BUN/Creatinine Ratio 3 L (6-26) Glucose 306 H (70-99) mg/dL Calculated Osmolality 276 L (280-300) Calcium 8.5 L (8.6-10.8) mg/dL Magnesium 1.7 (1.6-2.6) mg/dL Total Bilirubin 0.6 (0.2-1.2) mg/dL AST 54 H (5-34) Units/L ALT < 6 (0-55) Units/L Alkaline Phosphatase 81 (38-126) Units/L B-Natriuretic Peptide 1292 H (0-100) pg/mL Serum Total Protein 6.3 (6.0-8.3) g/dL Albumin 2.7 L (3.5-5.0) g/dL Globulin 3.6 H (2.4-3.5) g/dL Albumin/Globulin Ratio 0.8 L (1.1-2.2) Attestation Statement - Attestation Attestation: I examined this patient and my medical decision-making was reviewed with the Resident Physician. I agree with the documented findings, disposition and treatment plan as described except to the extent set forth below. Face to face time provided Patient to ED from dialysis after he developed hypotension. Given dose of vanco at HD. Appears in no acute distress on exam. Initial BP > 100 mm Hg systolic 18:30: Labs pending. Care will be endorsed to the oncoming physician at 7 PM pending labs and reevaluation. The patient is hypokalemic and we will initiate replacement. The oncoming physician will provide the final disposition
[2017-05-07 18:32] LABS: Platelet Count 99 K/mcL (140-400)
[2017-05-07 18:38] LABS: Lymphocytes # 0.3 K/mcL (0.6-4.6); Monocytes # 0.3 K/mcL (0.0-1.3); Neutrophils # 12.4 K/mcL (1.6-8.9); Platelet Estimate Decreased (Normal)
--- NOTE | 2017-05-07 18:42 | Emergency Department Note ---
Disposition Clinical Impression: Generalized weakness Hypotension Qualifiers: Hypotension type: unspecified hypotension type Qualified Code(s): I95.9 - Hypotension, unspecified Dyspnea Qualifiers: Dyspnea type: unspecified Qualified Code(s): R06.00 - Dyspnea, unspecified Disposition: Still a Patient Condition: Undetermined Forms: ED Satisfaction Letter, Work/School Release Time of Disposition: 18:47 General Adult HPI - General Chief complaint: ED General Medical Stated complaint: LOW BP Time Seen by Provider: 05/07/17 18:10 Source: patient, other Mode of arrival: ambulatory Limitations: no limitations Nursing Notes Reviewed: Yes Vital Signs Reviewed: Yes - History of Present Illness HPI Narrative: 52-year-old male arrives [facility] emergency department with concern for hypotension at dialysis facility. The patient had a blood pressure of 80 systolic. He has been experiencing weakness over the past few weeks. The patient denies any fevers but does admit to generalized weakness without any focalization. The patient denies any difficulty breathing or chest pain. The patient's systolic is currently 120. The patient denies any other complaints other than continued weakness. Onset (ago): unknown Pain Scale: 10 Consistency: constant Improves with: nothing Worsens with: nothing Associated symptoms: Reports: denies other symptoms Treatments Prior to Arrival: none - Related Data Home Medications Medication Instructions Recorded Confirmed Albuterol Sulfate [Proair 2 puff IH Q4H PRN 10/02/15 11/22/16 Respiclick] Citalopram [CeleXA] 40 mg PO DAILY 10/02/15 11/22/16 Fluticasone/Salmeterol [Advair 1 puff IH BID 10/02/15 11/22/16 250-50 Diskus] Furosemide [Lasix] 40 mg PO BID 10/02/15 11/22/16 Lidocaine Patch [Lidoderm 5% patch] 1 patch TP DAILY 10/02/15 11/22/16 hydrOXYzine HCl [Hydroxyzine HCl] 25 mg PO TID 10/02/15 11/22/16 Ferrous Sulfate [Iron] 325 mg PO DAILY 10/04/16 11/22/16 Carvedilol [Coreg] 6.25 mg PO BID 11/03/16 11/22/16 Ergocalciferol (VITAMIN D2) 50,000 unit PO QWEEK 11/03/16 11/22/16 [Vitamin D2] Lisinopril [Zestril] 10 mg PO DAILY 11/03/16 11/22/16 Simvastatin [Zocor] 40 mg PO HS 11/03/16 11/22/16 Tizanidine HCl [Zanaflex] 4 mg PO TID 11/03/16 11/22/16 Ipratropium/Albuterol Sulfate 1 puff IH QID 11/19/16 11/22/16 [Combivent Respimat Inhal [place]] Previous Rx's Medication Instructions Recorded Isosorbide MONOnitrate (24 HR) 30 mg PO DAILY #30 tab.er.24h 09/03/16 [Imdur] Nicotine Patch [Nicoderm] 21 mg TD DAILY #30 patch.td24 11/04/16 metOLazone [Zaroxolyn] 2.5 mg PO DAILY #30 tablet 11/04/16 HYDROcodone/Acet 5/325 mg [[place] 1 tab PO Q6H PRN #10 tablet 11/21/16 5-325 mg] Aspirin 81 mg PO DAILY #30 tab.chew 11/24/16 Cephalexin [Keflex] 500 mg PO TID #21 capsule 02/23/17 Allergies Allergy/AdvReac Type Severity Reaction Status Date / Time bee venom protein (honey bee) AdvReac Swelling Verified 05/07/17 16:52 of Lip/Tongue/Throat potassium AdvReac Vomiting Verified 05/07/17 16:52 prednisone AdvReac Vomiting Verified 05/07/17 16:52 All systems ED: reviewed and negative except as stated. Constitutional: Reports: weakness. Denies: fever, chills, weight change Eyes: Denies: eye pain, eye discharge, vision change ENT ED: Denies: ear pain, throat pain, dental pain, hearing loss, epistaxis, congestion, dysphagia Cardiovascular: Denies: chest pain, palpitations, dyspnea on exertion, edema, syncope Respiratory: Reports: dyspnea. Denies: cough, wheezes, hemoptysis, stridor Gastrointestinal: Denies: abdominal pain, nausea, vomiting, diarrhea, constipation, hematemesis, melena, hematochezia Genitourinary: Denies: urgency, dysuria, frequency, hematuria Musculoskeletal: Denies: back pain, neck pain, arthralgia, myalgia Integumentary: Denies: rash, abrasion, lesions Neurological: Denies: headache, weakness, numbness, paresthesias, confusion, abnormal gait, vertigo Past Medical History - Past Medical History Attestation: Yes The following information was validated with the patient. Source: patient Medical history: Reports: arthritis, CHF, COPD, coronary artery disease, dialysis, GERD, hyperlipidemia, hypertension, myocardial infarction, osteoporosis, peripheral artery disease, renal disease, other Surgical history: Reports: non-contributory, vascular surgery, other Psychiatric history: Reports: anxiety, bipolar, depression, other - Social History Smoking Status: Current every day smoker Smokeless Tobacco Status: Yes Alcohol use: Reports: occasionally Drug use: Reports: marijuana, other Physical Exam - General Limitations: no limitations General appearance: alert, in no apparent distress - Head Head exam: atraumatic, normocephalic, normal inspection - Eye Eye exam: Present: normal appearance, PERRL, EOMI - ENT ENT exam: normal exam, normal oropharynx, mucous membranes moist - Neck Neck exam: Present: normal inspection, full ROM, trachea midline - Chest Chest inspection: Present: normal inspection, symmetric chest wall rise - Respiratory Respiratory exam: Present: normal lung sounds bilaterally - Cardiovascular Cardiovascular exam: Present: regular rate, normal rhythm, normal heart sounds - Abdominal Exam Abdominal exam: Present: soft, Non-Tender. Absent: tenderness, distention, guarding, rebound, rigidity - Extremities Exam Extremities exam: Present: pedal edema (1+) - Back Exam Back exam: Present: normal inspection, full ROM. Absent: tenderness - Neurological Exam Neurological exam: Present: alert, oriented X3 - Skin Skin exam: Present: warm, dry, intact, normal color Course Vital Signs Temperature 98.2 F 05/07/17 16:52 Pulse Rate 109 05/07/17 16:52 Respiratory Rate 20 05/07/17 16:52 Blood Pressure 101/63 05/07/17 16:52 O2 Sat by Pulse Oximetry 93 05/07/17 16:52 Temperature 98.2 F 05/07/17 16:52 Pulse Rate 97 05/07/17 18:24 Respiratory Rate 18 05/07/17 18:24 Blood Pressure 124/61 05/07/17 18:24 O2 Sat by Pulse Oximetry 96 05/07/17 18:24 Oxygen Delivery Oxygen Delivery Room Air Medical Decision Making - Lab Data Result diagrams: 05/07/17 17:42 05/07/17 17:42 Lab Results 05/07/17 05/07/17 05/07/17 Range/Units 17:42 17:42 17:42 WBC 12.9 H (4.3-11.1) K/mcL RBC 3.44 L (4.19-5.50) M/mcL Hgb 10.3 L (12.9-16.9) g/dL Hct 29.6 L (37.5-50.1) % MCV 86.0 (83.0-100.0) fL MCH 29.9 (28.0-33.3) pg MCHC 34.8 (31.6-35.5) g/dL RDW 13.7 (11.5-14.5) % Plt Count 99 L (140-400) K/mcL MPV 10.7 (9.4-12.4) fL Seg Neutrophils % 74.0 % Band Neutrophils % 22.0 H (0-4) % Lymphocytes % 2.0 % Monocytes % 2.0 % Neutrophils # 12.4 H (1.6-8.9) K/mcL Lymphocytes # 0.3 L (0.6-4.6) K/mcL Monocytes # 0.3 (0.0-1.3) K/mcL Platelet Estimate Decreased L (Normal) Immature Plt Fraction 8.5 H (1.1-6.1) % Sodium 128 L (136-145) mEq/L Potassium 2.7 L (3.5-4.5) mEq/L Chloride 93 L (98-109) mEq/L Carbon Dioxide 20 (19-29) mEq/L BUN 9 (8-26) mg/dL Creatinine 2.89 H (0.72-1.25) mg/dL Est GFR ( Amer) 28 L (> 60) Est GFR (Non-Af Amer) 23 L (> 60) BUN/Creatinine Ratio 3 L (6-26) Glucose 306 H (70-99) mg/dL Calculated Osmolality 276 L (280-300) Calcium 8.5 L (8.6-10.8) mg/dL Total Bilirubin 0.6 (0.2-1.2) mg/dL AST 54 H (5-34) Units/L ALT < 6 (0-55) Units/L Alkaline Phosphatase 81 (38-126) Units/L B-Natriuretic Peptide 1292 H (0-100) pg/mL Serum Total Protein 6.3 (6.0-8.3) g/dL Albumin 2.7 L (3.5-5.0) g/dL Globulin 3.6 H (2.4-3.5) g/dL Albumin/Globulin Ratio 0.8 L (1.1-2.2)
[2017-05-07 18:51] LABS: Magnesium 1.7 mg/dL (1.6-2.6)
[2017-05-07] MEDS ORDERED: 0.9 % Sodium Chloride 500 ML IVC ONE (20:44)
[2017-05-07] MEDS ORDERED: Cefepime HCl 2,000 MG in D5% in Water (Mini-Bag+) 100 ML IVPB STA (20:44)
[2017-05-07] MEDS ORDERED: Ipratropium/Albuterol Neb 3 ML IH PRN (23:33)
[2017-05-07] MEDS ORDERED: Vancomycin 1,000 MG in D5% in Water 250 ML IVPB SCH (23:45)
--- NOTE | 2017-05-07 23:48 | Internal Med History&Physical ---
Date of Encounter: 05/07/17 Time of Encounter: 23:45 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 Plan (1) Sepsis associated hypotension Current visit: Yes Status: Acute blood cultures sent from the ER and first dose cefepime given. Pending blood cultures for review. Temperature except team and vancomycin to be dosed with dialysis pharmacy to assist, nephrology to assist with dosing. Gentle IV fluids at 50 mL per hour. Hold home antihypertensive (2) ESRD (end stage renal disease) on dialysis Current visit: Yes Status: Acute Consult nephrology for dialysis and assistance with vancomycin therapy pending blood cultures (3) COPD (chronic obstructive pulmonary disease) with chronic bronchitis Current visit: Yes Status: Acute He uses 4 L when necessary mostly at night stable no acute exacerbation noted continue home medicines Internal Medicine - H&P: HPI Chief complaint: Fatigue, low BP History of present illness: Mr. Castro is a 52 year old male with a history of end-stage renal disease on hemodialysis who presents with 2 weeks history of fatigue and subjective chills and was found to be hypotensive in the 80s systolic during hemodialysis today. He was admitted for sepsis workup. Of note he reports to me a history of MRSA line infection in early 2017. He does have a new tunnel left-sided dialysis catheter. In the ER he received empiric cefepime and blood cultures were sent although was unclear whether cultures were sent from his tunneled dialysis line prior to antibiotics. Investigation in the ER also discovered a chest x-ray with right-sided effusion and a right lower lobe infiltrate. However he denies any worsening acute on chronic rheumatoid distress. At baseline he uses 4 L oxygen mostly at night. Past Med Surg Social Fam HX - Past Medical History Medical history: arthritis, CHF, COPD, coronary artery disease, dialysis, GERD, hyperlipidemia, hypertension, myocardial infarction, osteoporosis, peripheral artery disease, renal disease, other Psychiatric history: anxiety, bipolar, depression, other - Past Surgical History Surgical History: non-contributory, vascular surgery, other - Social History Smoking Status: Current every day smoker Packs per day: 1/2 PACK Smokeless Tobacco Status: Yes Alcohol use: none Drug use: marijuana - Family History Mother Hx Family Cardiac Disorders: Yes Father Hx Family Cardiac Disorders: Yes Internal Medicine - H&P: Meds Albuterol Sulfate [Proair Respiclick] 2 puff IH Q4H PRN 10/02/15 [History] Citalopram [CeleXA] 40 mg PO DAILY 10/02/15 [History] Fluticasone/Salmeterol [Advair 250-50 Diskus] 1 puff IH BID 10/02/15 [History] Furosemide [Lasix] 40 mg PO BID 10/02/15 [History] Lidocaine Patch [Lidoderm 5% patch] 1 patch TP DAILY 10/02/15 [History] hydrOXYzine HCl [Hydroxyzine HCl] 25 mg PO TID 10/02/15 [History] Isosorbide MONOnitrate (24 HR) [Imdur] 30 mg PO DAILY #30 tab.er.24h 09/03/16 [ Rx] Ferrous Sulfate [Iron] 325 mg PO DAILY 10/04/16 [History] Carvedilol [Coreg] 6.25 mg PO BID 11/03/16 [History] Ergocalciferol (VITAMIN D2) [Vitamin D2] 50,000 unit PO QWEEK 11/03/16 [History] Lisinopril [Zestril] 10 mg PO DAILY 11/03/16 [History] Simvastatin [Zocor] 40 mg PO HS 11/03/16 [History] Tizanidine HCl [Zanaflex] 4 mg PO TID 11/03/16 [History] Nicotine Patch [Nicoderm] 21 mg TD DAILY #30 patch.td24 11/04/16 [Rx] metOLazone [Zaroxolyn] 2.5 mg PO DAILY #30 tablet 11/04/16 [Rx] Ipratropium/Albuterol Sulfate [Combivent Respimat Inhal [place]] 1 puff IH QID 04/28 [History] HYDROcodone/Acet 5/325 mg [[place] 5-325 mg] 1 tab PO Q6H PRN #10 tablet 11/21/16 [Rx] Aspirin 81 mg PO DAILY #30 tab.chew 11/24/16 [Rx] Cephalexin [Keflex] 500 mg PO TID #21 capsule 02/23/17 [Rx] Allergies bee venom protein (honey bee) Adverse Reaction (Verified 05/07/17 16:52) Swelling of Lip/Tongue/Throat potassium Adverse Reaction (Verified 05/07/17 16:52) Vomiting prednisone Adverse Reaction (Verified 05/07/17 16:52) Vomiting All Systems PM: A 10-system review of systems was performed and is negative for pertinent findings except as documented above in the HPI. Review of systems: ROS 14 point review of systems reviewed. Pertinent positive or negative as per HPI or otherwise reviewed as negative - Constitutional Vitals: Temp Pulse Resp BP Pulse Ox 98.3 F 95 16 128/57 91 05/07/17 21:58 05/07/17 21:58 05/07/17 21:58 05/07/17 21:58 05/07/17 21:58 Exam: General - AAO x 3 Psych - Appropriate affect/speech. No agitation Eyes - KATHERINE. Eye lids intact. No scleral icterus Lymphatics - No cervical/inguinal lympadenopathy Neuro - No gross peripheral or central neuro deficits with intact CN 2-12 exam Heart - Sinus. RRR. S1 and S2 present. No added HS/murmurs appreciated. No elevated JVD appreciated. No calf swellings/erythema Lung - Adequate air entry b/l, decreased air entry bibasally. No crackles or wheezes appreciated GI - Soft, non-tender. No hepatosplenomegaly/ascities. BS+ - No CVA/suprapubic tenderness or palpable bladder distension Skin -right-sided tunneled dialysis catheter. No rash/petechiae/ecchymosis. Warm extremities MSK - Joints with normal ROM. No joint swellings Internal Med - H&P Results - Labs CBC & Chem 7: 05/07/17 17:42 05/07/17 17:42
[2017-05-08] MEDS: *HR* HYDROcodone/Acet 5/325 mg TABLET PO PRN ×3 (00:18→21:45)
[2017-05-08] MEDS: 0.9 % Sodium Chloride 1,000 ML IVC SCH ×2 (00:18→21:46)
[2017-05-08 00:41] LABS: Bilirubin,Urine Small (Negative); Blood,Urine Large (Negative); Clarity,Urine Turbid (Clear); Color,Urine Red (Yellow); Glucose,Urine (UA) 250 mg/dL (Normal); Ketones,Urine Trace mg/dL (Negative); Leukocyte Esterase,Urine Small (Negative); Nitrite,Urine Negative (Negative); Protein,Urine >=1000 mg/dL (Neg-Trace); Specific Gravity,Urine 1.028 (1.010-1.025); Urobilinogen,Urine Normal (Normal)
[2017-05-08 00:43] LABS: Bacteria,Urine None Seen per hpf (None-Few); Hyaline Casts,Urine Few per lpf (None-Few); RBC,Urine TNTC per hpf (0-3); Squamous Epithelial Cell,Urine Many per lpf (None-Few); WBC,Urine 50-100 per hpf (0-3)
[2017-05-08] MEDS: Ipratropium/Albuterol Neb 3 ML IH SCH ×4 (04:41→22:46)
[2017-05-08 04:56] LABS: Hematocrit 26.3 % (37.5-50.1); Hemoglobin 9.1 g/dL (12.9-16.9); Immature Platelets 9.9 % (1.1-6.1); Mean Corpuscular HGB Conc 34.6 g/dL (31.6-35.5); Mean Corpuscular Hemoglobin 29.4 pg (28.0-33.3); Mean Corpuscular Volume 84.8 fL (83.0-100.0); Mean Platelet Volume 11.2 fL (9.4-12.4); Red Blood Count 3.1 M/mcL (4.19-5.50); Red Cell Distribution Width 13.5 % (11.5-14.5)
[2017-05-08] MEDS ORDERED: Ipratropium 1 PUFF INHALER IH SCH (05:00)
[2017-05-08] MEDS: *HR* Heparin 5,000 UNIT/ML VIAL SQ SCH ×3 (05:12→21:47)
[2017-05-08 05:18] LABS: Potassium 2.5 mEq/L (3.5-4.5)
[2017-05-08] MEDS ORDERED: Vancomycin 1,000 MG in D5% in Water 250 ML IVPB ONE (06:00)
[2017-05-08 06:39] LABS: Acinetobacter baumannii by PCR Not Detected (Not Detect); Candida albicans by PCR Not Detected (Not Detect); Candida glabrata by PCR Not Detected (Not Detect); Candida krusei by PCR Not Detected (Not Detect); Candida parapsilosis by PCR Not Detected (Not Detect); Candida tropicalis by PCR Not Detected (Not Detect); Enterococcus by PCR Not Detected (Not Detect); Escherichia coli by PCR Not Detected (Not Detect); Klebsiella oxytoca by PCR Not Detected (Not Detect); Klebsiella pneumoniae by PCR Not Detected (Not Detect); Pseudomonas aeruginosa by PCR Not Detected (Not Detect); Serratia marcescens by PCR Not Detected (Not Detect); Staphylococcus aureus by PCR ***DETECTED*** (Not Detect); Streptococcus agalactiae(B)PCR Not Detected (Not Detect); Streptococcus by PCR Not Detected (Not Detect); Streptococcus pneumoniae PCR Not Detected (Not Detect); Streptococcus pyogenes (A) PCR Not Detected (Not Detect); blaKPC Carbapenem-Resist Gene Not Detected (Not Detect); mecA Methicillin-Resist Gene ***DETECTED*** (Not Detect); vanA/B Vancomycin-Resist Genes Not Detected (Not Detect)
--- NOTE | 2017-05-08 08:23 | Internal Med Progress Note ---
<Oscar Adkins - Last Filed: 05/08/17 15:38> Date of Encounter: 05/08/17 Time of Encounter: 08:23 - 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 plan (1) Severe sepsis Current Visit: Yes Status: Acute 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 plan: Likely secondary to MRSA bacteremia. Patient had a previous MRSA bacteremia from a previous temporary dialysis catheter treated with IV Vanc at the dialysis center. Previous TDC removed 01/28/17 with the insertion of a new line the same day. Met SIRS criteria on admission plus hypotension responsive to IV fluids. He also had lactic acidosis. WBC has normalized and bandemia has resolved. Repeat Lactic acid improved. Initial Peripheral blood cultures drawn 05/07/17 are positive 2/2 sets for MRSA. Blood cultures drawn from the TDC are pending x 2 sets. No endocarditis stigmata noted on exam. The patient has one major and one minor Modified Buitrago's criteria. Get TTE. If negative, will need ROSITA. Repeat peripheral blood cultures x 2 sets in the AM. Await blood cultures from the TDC. ID following May need to consider removal if possible. Will discuss with the nephrology team. (2) Septicemia due to methicillin resistant Staphylococcus aureus Current Visit: Yes Status: Acute 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 plan: See above (3) Pneumonia Current Visit: Yes Status: Acute 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 plan: Chest x-ray s reveals right lower lobe pneumonia Rocephin 2 grams IV daily (day 1) Vancomycin (day 2) Qualifiers: Pneumonia type: due to unspecified organism Laterality: right Lung location: lower lobe of lung Qualified Code(s): J18.1 - Lobar pneumonia, unspecified organism (4) Hypokalemia Current Visit: No Status: Acute 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 plan: Supplemental potassium. Repeat potassium level pending. Nephrology following. Next hemodialysis tomorrow. (5) Hyponatremia Current Visit: No Status: Acute 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 plan: Continue gentle hydration with normal saline. Nephrology following, (6) ESRD (end stage renal disease) on dialysis Current Visit: Yes Status: Acute 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 plan: Nephrology following. Continue hemodialysis Friday (7) DVT prophylaxis Current Visit: No Status: Acute 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 plan: Heparin Patient seen and examined, plan discussed with and agreed upon with Dr. Leung - Subjective Interval history: Patient resting in bed. Patient reports productive cough and does not recall starting antibiotics since new dialysis catheter was placed. Last dialysis yesterday he does not remember how much fluid was taken off. - Constitutional Vitals: Temp Pulse Resp BP Pulse Ox 98.1 F 78 16 127/65 96 05/08/17 04:25 05/08/17 04:25 05/08/17 04:40 05/08/17 04:25 05/08/17 04:40 General appearance: Present: disheveled, A&O X 3, no acute distress, answers questions appropriately - Head Head exam: Present: atraumatic, normocephalic - Eye Eye exam: Present: PERRL, conjuntiva pink, sclera anicteric Pupils: Present: PERRL - ENT ENT exam: Present: mucous membranes moist, normal oropharynx - Neck Neck exam general surgery: Present: supple, trachea midline. Absent: lymphadenopathy - Respiratory Respiratory exam: Present: wheezes. Absent: accessory muscle use, rales, rhonchi Additional comments: Expiratory wheezing right greater than left - Cardiovascular Cardiovascular exam: Present: RRR, +S1, +S2. Absent: diastolic murmur, gallop, rubs, systolic murmur - GI/Abdominal GI/Abdominal exam: Present: normal bowel sounds, soft, no peritoneal signs. Absent: distended, guarding, tenderness - Extremities Exam Extremities exam: Present: warm, radial pulses palpable and symetrical. Absent : calf tenderness, cyanotic, pedal edema - Neurological Exam Neurological exam: Present: CN II-XII intact, oriented X3, no focal deficits. Absent: pronater drift, facial droop, speech deficit - Psychiatric Psychiatric exam: Present: normal affect, normal mood - Skin Skin exam: Present: dry, intact, warm. Absent: erythema Additional comments: No surrounding erythema at Dialysis catheter site Internal Medicine: Result - Labs CBC & Chem 7: 05/08/17 04:30 05/08/17 11:14 Labs: Short CBC 05/08/17 Range/Units 04:30 WBC 10.5 (4.3-11.1) K/mcL Hgb 9.1 L (12.9-16.9) g/dL Hct 26.3 L (37.5-50.1) % Plt Count 97 L (140-400) K/mcL BMP 05/08/17 04:30 Sodium 126 L Potassium 2.5 L* Chloride 92 L Carbon Dioxide 25 BUN 11 Creatinine 3.01 H Glucose 129 H Calcium 8.0 L Urine 05/08/17 Range/Units 00:25 Urine Color Red A (Yellow) Urine Clarity Turbid A (Clear) Urine pH 6.0 (5.0-8.0) pH Units Ur Specific Cunningham 1.028 H (1.010-1.025) Urine Protein >=1000 H (Neg-Trace) mg/dL Urine Glucose (UA) 250 H (Normal) mg/dL Consult Discharge Plan - Plan Referrals: Nallely Hanna CNP [Primary Care Provider] - 05/15/17 8:45 am (Please follow up as schedule..) <German Leung - Last Filed: 05/08/17 18:24> Date of Encounter: 05/08/17 - Constitutional Vitals: Temp Pulse Resp BP Pulse Ox 97.5 F L 77 18 154/72 96 05/08/17 16:46 05/08/17 16:46 05/08/17 16:46 05/08/17 16:46 05/08/17 16:46 Internal Medicine: Result - Labs CBC & Chem 7: 05/08/17 04:30 05/08/17 11:14 Labs: Short CBC 05/08/17 Range/Units 04:30 WBC 10.5 (4.3-11.1) K/mcL Hgb 9.1 L (12.9-16.9) g/dL Hct 26.3 L (37.5-50.1) % Plt Count 97 L (140-400) K/mcL BMP 05/08/17 05/08/17 04:30 11:14 Sodium 126 L 123 L Potassium 2.5 L* 2.7 L Chloride 92 L 92 L Carbon Dioxide 25 23 BUN 11 14 Creatinine 3.01 H 3.30 H Glucose 129 H 128 H Calcium 8.0 L 7.7 L Liver Function 05/08/17 Range/Units 11:14 Total Bilirubin 0.4 (0.2-1.2) mg/dL AST 62 H (5-34) Units/L ALT < 6 (0-55) Units/L Alkaline Phosphatase 65 (38-126) Units/L Albumin 2.2 L (3.5-5.0) g/dL Urine 05/08/17 Range/Units 00:25 Urine Color Red A (Yellow) Urine Clarity Turbid A (Clear) Urine pH 6.0 (5.0-8.0) pH Units Ur Specific Cunningham 1.028 H (1.010-1.025) Urine Protein >=1000 H (Neg-Trace) mg/dL Urine Glucose (UA) 250 H (Normal) mg/dL - Attending Attestation I examined this patient and my medical decision-making was reviewed with the Resident Physician. I agree with the documented findings, disposition and treatment plan as described except to the extent set forth below. Nephrology/ID input appreciated.
--- NOTE | 2017-05-08 08:42 | Emergency Department Note ---
Disposition Clinical Impression: Generalized weakness Hypotension Qualifiers: Hypotension type: unspecified hypotension type Qualified Code(s): I95.9 - Hypotension, unspecified Dyspnea Qualifiers: Dyspnea type: unspecified Qualified Code(s): R06.00 - Dyspnea, unspecified Disposition: Admitted As Inpatient Condition: Fair General Adult HPI - General Chief complaint: ED General Medical Stated complaint: LOW BP Time Seen by Provider: 05/07/17 18:10 Source: patient, other Mode of arrival: ambulatory Limitations: no limitations Nursing Notes Reviewed: Yes Vital Signs Reviewed: Yes - History of Present Illness Pain Scale: 0 Improves with: nothing Worsens with: nothing Associated symptoms: Reports: denies other symptoms Treatments Prior to Arrival: none - Related Data Home Medications Medication Instructions Recorded Confirmed Citalopram [CeleXA] 40 mg PO DAILY 10/02/15 05/08/17 Fluticasone/Salmeterol [Advair 1 puff IH BID 10/02/15 05/08/17 250-50 Diskus] Furosemide [Lasix] 40 mg PO BID 10/02/15 05/08/17 Lidocaine Patch [Lidoderm 5% patch] 1 patch TP DAILY 10/02/15 05/08/17 hydrOXYzine HCl [Hydroxyzine HCl] 25 mg PO TID 10/02/15 05/08/17 Ferrous Sulfate [Iron] 325 mg PO DAILY 10/04/16 05/08/17 Carvedilol [Coreg] 6.25 mg PO BID 11/03/16 05/08/17 Ergocalciferol (VITAMIN D2) 50,000 unit PO QWEEK 11/03/16 05/08/17 [Vitamin D2] Lisinopril [Zestril] 10 mg PO DAILY 11/03/16 05/08/17 Simvastatin [Zocor] 40 mg PO HS 11/03/16 05/08/17 Tizanidine HCl [Zanaflex] 4 mg PO TID 11/03/16 05/08/17 Ipratropium/Albuterol Sulfate 1 puff IH QID 11/19/16 05/08/17 [Combivent Respimat Inhal [place]] Albuterol Sulfate [Proair Hfa] 2 puff IH Q4H PRN 05/08/17 05/08/17 BuPROPion SR (12 HR) [Wellbutrin 150 mg PO BID 05/08/17 05/08/17 SR] Calcium Acetate [Phos-LO] 1,334 mg PO TIDWM 05/08/17 05/08/17 Gabapentin [Neurontin] 800 mg PO QID 05/08/17 05/08/17 Metoprolol Tartrate [Lopressor] 50 mg PO DAILY 05/08/17 05/08/17 Mupirocin [Bactroban Oint] 1 appl TP BID 05/08/17 05/08/17 Ondansetron HCl [Zofran] 4 mg PO BID 05/08/17 05/08/17 Potassium Chloride [Klor-Con 10] 10 meq PO BID 05/08/17 05/08/17 Sevelamer [Renvela] 2,400 mg PO TIDWM 05/08/17 05/08/17 Tramadol HCl [Ultram] 50 mg PO TID PRN 05/08/17 05/08/17 Previous Rx's Medication Instructions Recorded Isosorbide MONOnitrate (24 HR) 30 mg PO DAILY #30 tab.er.24h 09/03/16 [Imdur] Aspirin 81 mg PO DAILY #30 tab.chew 11/24/16 Allergies Allergy/AdvReac Type Severity Reaction Status Date / Time bee venom protein (honey bee) AdvReac Swelling Verified 05/07/17 16:52 of Lip/Tongue/Throat potassium AdvReac Vomiting Verified 05/07/17 16:52 prednisone AdvReac Vomiting Verified 05/07/17 16:52 Constitutional: Reports: weakness. Denies: fever, chills, weight change Eyes: Denies: eye pain, eye discharge, vision change ENT ED: Denies: ear pain, throat pain, dental pain, hearing loss, epistaxis, congestion, dysphagia Cardiovascular: Denies: chest pain, palpitations, dyspnea on exertion, edema, syncope Respiratory: Reports: dyspnea. Denies: cough, wheezes, hemoptysis, stridor Gastrointestinal: Denies: abdominal pain, nausea, vomiting, diarrhea, constipation, hematemesis, melena, hematochezia Genitourinary: Denies: urgency, dysuria, frequency, hematuria Musculoskeletal: Denies: back pain, neck pain, arthralgia, myalgia Integumentary: Denies: rash, abrasion, lesions Neurological: Denies: headache, weakness, numbness, paresthesias, confusion, abnormal gait, vertigo Past Medical History - Past Medical History Medical history: Reports: arthritis, CHF, COPD, coronary artery disease, dialysis, GERD, hyperlipidemia, hypertension, myocardial infarction, osteoporosis, peripheral artery disease, renal disease, other Surgical history: Reports: non-contributory, vascular surgery, other Psychiatric history: Reports: anxiety, bipolar, depression, other - Social History Smoking Status: Current every day smoker Smokeless Tobacco Status: Yes Alcohol use: Reports: none Drug use: Reports: marijuana Physical Exam - General Limitations: no limitations General appearance: alert Course Vital Signs Temperature 98.2 F 05/07/17 16:52 Pulse Rate 109 05/07/17 16:52 Respiratory Rate 20 05/07/17 16:52 Blood Pressure 101/63 05/07/17 16:52 O2 Sat by Pulse Oximetry 93 05/07/17 16:52 Temperature 98.2 F 05/08/17 08:29 Pulse Rate 89 05/08/17 08:29 Respiratory Rate 16 05/08/17 08:29 Blood Pressure 154/76 05/08/17 08:29 O2 Sat by Pulse Oximetry 95 05/08/17 08:29 Oxygen Delivery Oxygen Delivery Nasal Cannula Medical Decision Making - [facility] Narrative Medical decision making narrative: Patient received the start of my shift pending laboratory evaluation, reevaluation, and disposition. Patient blood pressure improved with observation in the emergency department. Chest x-ray showed a possible pneumonia. Patient also had a fairly high lactic acidosis. He had also multiple other electrolyte abnormalities which is likely secondary to his dialysis. Patient will be admitted to the hospital for further care and evaluation of his hypertension and possible pneumonia. Given antibiotics in the emergency department - Medical Records Medical records reviewed: Yes I reviewed the patient's medical records. - Lab Data Lab results reviewed: Yes I reviewed the patient's lab results. Result diagrams: 05/08/17 04:30 05/08/17 04:30 Lab Results 05/07/17 05/07/17 05/07/17 Range/Units 17:42 17:42 17:42 WBC 12.9 H (4.3-11.1) K/mcL RBC 3.44 L (4.19-5.50) M/mcL Hgb 10.3 L (12.9-16.9) g/dL Hct 29.6 L (37.5-50.1) % MCV 86.0 (83.0-100.0) fL MCH 29.9 (28.0-33.3) pg MCHC 34.8 (31.6-35.5) g/dL RDW 13.7 (11.5-14.5) % Plt Count 99 L (140-400) K/mcL MPV 10.7 (9.4-12.4) fL Seg Neutrophils % 74.0 % Band Neutrophils % 22.0 H (0-4) % Lymphocytes % 2.0 % Monocytes % 2.0 % Neutrophils # 12.4 H (1.6-8.9) K/mcL Lymphocytes # 0.3 L (0.6-4.6) K/mcL Monocytes # 0.3 (0.0-1.3) K/mcL Platelet Estimate Decreased L (Normal) Immature Plt Fraction 8.5 H (1.1-6.1) % Sodium 128 L (136-145) mEq/L Potassium 2.7 L (3.5-4.5) mEq/L Chloride 93 L (98-109) mEq/L Carbon Dioxide 20 (19-29) mEq/L BUN 9 (8-26) mg/dL Creatinine 2.89 H (0.72-1.25) mg/dL Est GFR ( Amer) 28 L (> 60) Est GFR (Non-Af Amer) 23 L (> 60) BUN/Creatinine Ratio 3 L (6-26) Glucose 306 H (70-99) mg/dL Calculated Osmolality 276 L (280-300) Lactic Acid (0.5-2.2) mmol/L Calcium 8.5 L (8.6-10.8) mg/dL Magnesium 1.7 (1.6-2.6) mg/dL Total Bilirubin 0.6 (0.2-1.2) mg/dL AST 54 H (5-34) Units/L ALT < 6 (0-55) Units/L Alkaline Phosphatase 81 (38-126) Units/L B-Natriuretic Peptide 1292 H (0-100) pg/mL Serum Total Protein 6.3 (6.0-8.3) g/dL Albumin 2.7 L (3.5-5.0) g/dL Globulin 3.6 H (2.4-3.5) g/dL Albumin/Globulin Ratio 0.8 L (1.1-2.2) A. baumannii (PCR) (Not Detect) Tashia albicans (PCR) (Not Detect) C. glabrata (PCR) (Not Detect) C. krusei (PCR) (Not Detect) C. parapsilosis (PCR) (Not Detect) C. tropicalis (PCR) (Not Detect) Enterobacteriac sp PCR (Not Detect) E. cloacae complex PCR (Not Detect) Enterococcus sp PCR (Not Detect) E. coli (PCR) (Not Detect) H. influenzae (PCR) (Not Detect) Klebsiella oxytoca PCR (Not Detect) Klebsiella pneumoniae (Not Detect) List. monocytogenes PCR (Not Detect) N. meningitidis (PCR) (Not Detect) Proteus species (PCR) (Not Detect) Serratia marcescens PCR (Not Detect) Staphylococcus sp PCR (Not Detect) Staph aureus (PCR) (Not Detect) mecA-Methicil Res Gene (Not Detect) Streptococcus sp PCR (Not Detect) Group A Strep DNA (Not Detect) Group B Strep (PCR) (Not Detect) Strep pneumoniae (PCR) (Not Detect) P. aeruginosa (PCR) (Not Detect) Britta/B-Vanco Res Genes (Not Detect) KPC (blaKPC) Detect PCR (Not Detect) 05/07/17 05/07/17 Range/Units 17:42 18:34 WBC (4.3-11.1) K/mcL RBC (4.19-5.50) M/mcL Hgb (12.9-16.9) g/dL Hct (37.5-50.1) % MCV (83.0-100.0) fL MCH (28.0-33.3) pg MCHC (31.6-35.5) g/dL RDW (11.5-14.5) % Plt Count (140-400) K/mcL MPV (9.4-12.4) fL Seg Neutrophils % % Band Neutrophils % (0-4) % Lymphocytes % % Monocytes % % Neutrophils # (1.6-8.9) K/mcL Lymphocytes # (0.6-4.6) K/mcL Monocytes # (0.0-1.3) K/mcL Platelet Estimate (Normal) Immature Plt Fraction (1.1-6.1) % Sodium (136-145) mEq/L Potassium (3.5-4.5) mEq/L Chloride (98-109) mEq/L Carbon Dioxide (19-29) mEq/L BUN (8-26) mg/dL Creatinine (0.72-1.25) mg/dL Est GFR ( Amer) (> 60) Est GFR (Non-Af Amer) (> 60) BUN/Creatinine Ratio (6-26) Glucose (70-99) mg/dL Calculated Osmolality (280-300) Lactic Acid 8.6 H* (0.5-2.2) mmol/L Calcium (8.6-10.8) mg/dL Magnesium (1.6-2.6) mg/dL Total Bilirubin (0.2-1.2) mg/dL AST (5-34) Units/L ALT (0-55) Units/L Alkaline Phosphatase (38-126) Units/L B-Natriuretic Peptide (0-100) pg/mL Serum Total Protein (6.0-8.3) g/dL Albumin (3.5-5.0) g/dL Globulin (2.4-3.5) g/dL Albumin/Globulin Ratio (1.1-2.2) A. baumannii (PCR) Not Detected (Not Detect) Tashia albicans (PCR) Not Detected (Not Detect) C. glabrata (PCR) Not Detected (Not Detect) C. krusei (PCR) Not Detected (Not Detect) C. parapsilosis (PCR) Not Detected (Not Detect) C. tropicalis (PCR) Not Detected (Not Detect) Enterobacteriac sp PCR Not Detected (Not Detect) E. cloacae complex PCR Not Detected (Not Detect) Enterococcus sp PCR Not Detected (Not Detect) E. coli (PCR) Not Detected (Not Detect) H. influenzae (PCR) Not Detected (Not Detect) Klebsiella oxytoca PCR Not Detected (Not Detect) Klebsiella pneumoniae Not Detected (Not Detect) List. monocytogenes PCR Not Detected (Not Detect) N. meningitidis (PCR) Not Detected (Not Detect) Proteus species (PCR) Not Detected (Not Detect) Serratia marcescens PCR Not Detected (Not Detect) Staphylococcus sp PCR DETECTED A (Not Detect) Staph aureus (PCR) DETECTED A (Not Detect) mecA-Methicil Res Gene DETECTED A (Not Detect) Streptococcus sp PCR Not Detected (Not Detect) Group A Strep DNA Not Detected (Not Detect) Group B Strep (PCR) Not Detected (Not Detect) Strep pneumoniae (PCR) Not Detected (Not Detect) P. aeruginosa (PCR) Not Detected (Not Detect) Britta/B-Vanco Res Genes Not Detected (Not Detect) KPC (blaKPC) Detect PCR Not Detected (Not Detect) - Radiology Data Radiology results reviewed: Yes I reviewed the patient's radiology results.
[2017-05-08] MEDS: tiZANidine 4 MG TABLET PO SCH ×3 (08:48→21:45)
[2017-05-08] MEDS: Nicotine 21 MG PATCH.TD24 TD SCH (08:48)
[2017-05-08] MEDS: Aspirin 81 MG TAB.CHEW PO SCH (08:48)
[2017-05-08] MEDS ORDERED: NON-FORMULARY MEDICATION 1 EACH EACH (Ipratropium/Albuterol Sulfate [Combivent Respimat In IH SCH (09:00)
[2017-05-08] MEDS ORDERED: Cefepime HCl 1,000 MG in D5% in Water (Mini-Bag+) 100 ML IVPB ONE (09:55)
--- NOTE | 2017-05-08 10:15 | Nephrology Consult Note ---
<Kathy Groves - Last Filed: 05/08/17 10:23> Date of Encounter: 05/08/17 Time of Encounter: 10:11 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 Plan (1) ESRD (end stage renal disease) on dialysis Current Visit: Yes Status: Acute Plan for dialysis tomorrow Renal diet-ordered Avoid nephrotoxins if possible Pharmacy to dose Vanco Phos level ordered (2) COPD (chronic obstructive pulmonary disease) with chronic bronchitis Current Visit: Yes Status: Acute Uses 4 L O2 mostly at night per primary team (3) Sepsis associated hypotension Current Visit: Yes Status: Acute Positive blood cultures Pharmacy to dose Vanco per primary team (4) Hypokalemia Current Visit: No Status: Acute Given Potassium 40meq this am History of Present Illness - Reason for Consult Consult date: 05/08/17 - Chief Complaint sepsis, ESRD on dialysis - History of Present Illness Mr. Castro is a 52 year old male well known to our practice with a history of end-stage renal disease on hemodialysis who presents with 2 weeks history of fatigue and subjective chills and was found to be hypotensive in the 80s systolic during hemodialysis today. He has a history of MRSA line infection in early 2017. He does have a new tunnel left-sided dialysis catheter. [facility]; orders were given for them to draw blood cultures and start Vanco per Dr Preciado. Chest x-ray shows with right-sided effusion and a right lower lobe infiltrate. Blood cultures here show + staphylococcus, + staph aureus, and + mecA methicil res. At baseline he uses 4 L oxygen mostly at night. Nephrology has been consulted to manage his dialysis during this hospitalization. Past Med Surg Social Fam HX - Past Medical History Medical history: arthritis, CHF, COPD, coronary artery disease, dialysis, GERD, hyperlipidemia, hypertension, myocardial infarction, osteoporosis, peripheral artery disease, renal disease, other Psychiatric history: anxiety, bipolar, depression, other - Past Surgical History Surgical History: non-contributory, vascular surgery, other - Social History Smoking Status: Current every day smoker Packs per day: 1/2 PACK Smokeless Tobacco Status: Yes Alcohol use: none Drug use: marijuana - Family History Mother Hx Family Cardiac Disorders: Yes Father Hx Family Cardiac Disorders: Yes Medications and Allergies Citalopram [CeleXA] 40 mg PO DAILY 10/02/15 [History] Fluticasone/Salmeterol [Advair 250-50 Diskus] 1 puff IH BID 10/02/15 [History] Furosemide [Lasix] 40 mg PO BID 10/02/15 [History] Lidocaine Patch [Lidoderm 5% patch] 1 patch TP DAILY 10/02/15 [History] hydrOXYzine HCl [Hydroxyzine HCl] 25 mg PO TID 10/02/15 [History] Isosorbide MONOnitrate (24 HR) [Imdur] 30 mg PO DAILY #30 tab.er.24h 09/03/16 [ Rx] Ferrous Sulfate [Iron] 325 mg PO DAILY 10/04/16 [History] Carvedilol [Coreg] 6.25 mg PO BID 11/03/16 [History] Ergocalciferol (VITAMIN D2) [Vitamin D2] 50,000 unit PO QWEEK 11/03/16 [History] Lisinopril [Zestril] 10 mg PO DAILY 11/03/16 [History] Simvastatin [Zocor] 40 mg PO HS 11/03/16 [History] Tizanidine HCl [Zanaflex] 4 mg PO TID 11/03/16 [History] Ipratropium/Albuterol Sulfate [Combivent Respimat Inhal [place]] 1 puff IH QID 04/28 [History] Aspirin 81 mg PO DAILY #30 tab.chew 11/24/16 [Rx] Albuterol Sulfate [Proair Hfa] 2 puff IH Q4H PRN 05/08/17 [History] BuPROPion SR (12 HR) [Wellbutrin SR] 150 mg PO BID 05/08/17 [History] Calcium Acetate [Phos-LO] 1,334 mg PO TIDWM 05/08/17 [History] Gabapentin [Neurontin] 800 mg PO QID 05/08/17 [History] Metoprolol Tartrate [Lopressor] 50 mg PO DAILY 05/08/17 [History] Mupirocin [Bactroban Oint] 1 appl TP BID 05/08/17 [History] Ondansetron HCl [Zofran] 4 mg PO BID 05/08/17 [History] Potassium Chloride [Klor-Con 10] 10 meq PO BID 05/08/17 [History] Sevelamer [Renvela] 2,400 mg PO TIDWM 05/08/17 [History] Tramadol HCl [Ultram] 50 mg PO TID PRN 05/08/17 [History] Allergies bee venom protein (honey bee) Adverse Reaction (Verified 05/07/17 16:52) Swelling of Lip/Tongue/Throat potassium Adverse Reaction (Verified 05/07/17 16:52) Vomiting prednisone Adverse Reaction (Verified 05/07/17 16:52) Vomiting Review of Systems All Systems: reviewed and no additional remarkable complaints except as stated Constitutional: chills, fever(s), malaise Cardiovascular: no chest pain, no dyspnea, no leg edema Gastrointestinal: no abdominal pain, no diarrhea, no nausea, no vomiting Neurological: no behavioral changes Exam - Vital Signs Vital signs: Initial Vital Signs Temp Pulse Resp BP Pulse Ox 98.2 F 109 20 101/63 93 05/07/17 16:52 05/07/17 16:52 05/07/17 16:52 05/07/17 16:52 05/07/17 16:52 Vital Signs - Last 8 Hours Temp Pulse Resp BP Pulse Ox 05/08/17 08:29 98.2 F 89 16 154/76 95 05/08/17 04:40 16 96 05/08/17 04:25 98.1 F 78 16 127/65 97 Intake and Output 05/07/17 05/08/17 05/08/17 23:59 07:59 15:59 Intake Total 770 / 770 Output Total 50 / 50 Balance 720 / 720 Intake: IV Fluids 500 / 500 0.9 % Sodium Chloride 1, 250 / 250 000 ML @ 50 mls/hr IVC . Q20H [facility] Rx#:[id number] Vancocin 1,000 MG In 250 / 250 Dextrose 5% 250 ML @ 166. 667 mls/hr IVPB ONCE ONE Rx#:[id number] Oral 270 / 270 Output: Urine 50 / 50 Other: Stool Size Small Stool Consistency soft Stool Characteristics Normal for Patient Stool Color Brown # Voids 1 # Bowel Movements 1 - General Appearance General appearance: well-developed, well-nourished EENT: ATNC, mucous membranes moist, hearing intact, vision intact Neck: supple Respiratory: clear Cardiology: no edema, normal S1, normal S2 - Dialysis Access Dialysis Vascular Access: Venous Catheter Gastrointestinal: no tenderness, no guarding Integumentary: warm and dry Neurologic: alert and oriented x3 Psychiatric: mood/affect appropriate, cooperative Results - Lab Results 05/08/17 04:30 05/08/17 04:30 Most recent lab results Calcium 8.0 mg/dL (8.6-10.8) L 05/08/17 04:30 Magnesium 1.7 mg/dL (1.6-2.6) 05/07/17 17:42 Consult Discharge Plan - Plan Referrals: Nallely Hanna CNP [Primary Care Provider] - 05/15/17 8:45 am (Please follow up as schedule..) <Michael Preciado - Last Filed: 05/09/17 07:16> Date of Encounter: 05/08/17 Exam - Vital Signs Vital signs: Initial Vital Signs Temp Pulse Resp BP Pulse Ox 98.2 F 109 20 101/63 93 05/07/17 16:52 05/07/17 16:52 05/07/17 16:52 05/07/17 16:52 05/07/17 16:52 Vital Signs - Last 8 Hours Temp Pulse Resp BP Pulse Ox 05/09/17 03:44 97.8 F 68 16 158/81 98 05/08/17 23:28 97.9 F 80 16 169/77 98 Intake and Output 05/08/17 05/08/17 05/09/17 15:59 23:59 07:59 Intake Total 240 / 240 50 / 50 522 / 522 Output Total 125 / 125 100 / 100 Balance 240 / 240 -75 / -75 422 / 422 Intake: IV Fluids 50 / 50 522 / 522 Potassium Chloride 10 mEq 50 / 50 /100mL 10 meq In 100 ml @ 100 mls/hr IVPB Q1H [facility] Rx#:[id number] KCl 40 MEQ Xylocaine 2 ML 522 / 522 In Dextrose 5% 500 ML @ 130.5 mls/hr IVPB ONCE ONE Rx#:[id number] Oral 240 / 240 Output: Urine 125 / 125 100 / 100 Other: Meal Lunch Percent of Meal Consumed 10% Weight 80.9 kg Patient Weight 05/09/17 23:59 Weight 80.9 kg Results - Lab Results 05/09/17 02:47 05/09/17 02:47 Most recent lab results Calcium 7.6 mg/dL (8.6-10.8) L 05/09/17 02:47 Phosphorus 1.8 mg/dL (2.3-4.7) L 05/09/17 02:47 Magnesium 1.7 mg/dL (1.6-2.6) 05/07/17 17:42 - Attending Attestation I examined this patient and my medical decision-making was reviewed with the Resident Physician. I agree with the documented findings, disposition and treatment plan as described except to the extent set forth below. Pt sen and examined well known to me from managing his ESRD on HD admitted after dialysis where he was noted to have chills and shakes. He was started on vanco with blood cultures drwan and sent to the ER. He has had 2 bouts of MRSA previously last one at least a month or more ago with permcath changes and vanco with repeat cultures all negative. He was also treated after nasal swab was positive for MRSA as well. Eaxm showed lungs with decreased BS bases bilat. catheter site with some erythema. Agree with plan for removal of permcath and temporary catheter for HD till all cultures negative. ID input with be appreciated
[2017-05-08] MEDS: Budesonide/Formoterol 80/4.5 MDI IH SCH ×2 (10:59→22:46)
[2017-05-08] MEDS ORDERED: Cefepime HCl 1,000 MG in D5% in Water (Mini-Bag+) 100 ML IVPB SCH ×3 (11:00→18:00)
[2017-05-08 11:42] LABS: Alanine Aminotransferase < 6 Units/L (0-55); Albumin 2.2 g/dL (3.5-5.0); Albumin/Globulin Ratio 0.8 (1.1-2.2); Alkaline Phosphatase 65 Units/L (38-126); Aspartate Amino Transferase 62 Units/L (5-34); BUN/Creatinine Ratio 4 (6-26); Bilirubin,Total 0.4 mg/dL (0.2-1.2); Blood Urea Nitrogen 14 mg/dL (8-26); Calcium 7.7 mg/dL (8.6-10.8); Carbon Dioxide 23 mEq/L (19-29); Chloride 92 mEq/L (98-109); Globulin 2.9 g/dL (2.4-3.5); Glucose 128 mg/dL (70-99); Osmolality,Calculated 258 (280-300); Potassium 2.7 mEq/L (3.5-4.5); Sodium 123 mEq/L (136-145); Total Protein 5.1 g/dL (6.0-8.3); eGFR For African Americans 24 (> 60); eGFR For Non-African Americans 20 (> 60)
--- NOTE | 2017-05-08 13:20 | Infectious Disease Consult ---
Date of Encounter: 05/08/17 Time of Encounter: 13:18 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 Plan (1) Severe sepsis Status: Acute 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 plan: The patient had two SIRS criteria plus hypotension responsive to IV fluids. He also had lactic acidosis. Likely secondary to bacteremia. Improved. Hypotension resolved. WBC has normalized and bandemia has resolved. Lactic acid improved. Peripheral blood cultures drawn 05/07/17 are positive 2/2 sets for MRSA. Blood cultures drawn from the TDC are pending x 2 sets. (2) Bacteremia Status: Acute 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 plan: Causative organism MRSA. Source not entirely clear, but likely the TDC. Clinically, it does not appear infected. Patient had a previous MRSA bacteremia from a previous temporary dialysis catheter treated with IV Vanc at the dialysis center. Previous TDC removed with the insertion of a new line the same day. Peripheral blood cultures drawn 05/07/17 are positive 2/2 sets for MRSA. Blood cultures drawn from the TDC are pending x 2 sets. No endocarditis stigmata noted on exam. The patient has one major and one minor Modified Buitrago's criteria. Get TTE. If negative, will need ROSITA. Repeat peripheral blood cultures x 2 sets in the AM. Await blood cultures from the TDC. May need to consider removal if possible. Will discuss with the nephrology team. Continue Vancomycin IV. Pharmacy to dose. Goal trough approximately 15. Duration of treatment depends on the clinical picture. Monitor for drug toxicity and dose-adjust antibiotics. (3) Pneumonia Status: Acute 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 plan: Location: Right lower lobe. Causative organism unclear. Get sputum culture if patient is able to give an adequate specimen. Check S. pneumo and Legionella UAT. Discontinue Cefepime. Start Rocephin 2 grams IV daily. Continue Vancomycin IV. Pharmacy to dose. Goal trough approximately 15. Duration of treatment depends on the clinical picture. Monitor drug toxicity and dose-adjust antibiotics. Qualifiers: Pneumonia type: due to unspecified organism Laterality: right Lung location: lower lobe of lung Qualified Code(s): J18.1 - Lobar pneumonia, unspecified organism (4) Lactic acidosis Status: Acute 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 plan: Lactic acid elevated at 8.6 on admission. Likely secondary to sepsis. Improved. Repeat lactic acid 2.6 this morning. Continue to trend. (5) Hypokalemia Status: Acute 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 plan: Serum potassium remains low at 2.7 this morning. Management per the primary and nephrology teams. (6) Hyponatremia Status: Acute 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 plan: Serum sodium 123 this morning. Management per the primary and nephrology teams. (7) COPD (chronic obstructive pulmonary disease) Status: Chronic Qualifiers: COPD type: unspecified COPD Qualified Code(s): J44.9 - Chronic obstructive pulmonary disease, unspecified (8) ESRD (end stage renal disease) on dialysis Status: Chronic 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 plan: Nephrology consulted and following. Infectious Disease HPI - Data of Consult Patient: new to practice Consult date: 05/08/17 Requesting Physician: Dylan Caceres DO Primary Care Provider: Nallely Hanna CNP - Consult Narrative Reason for consult: MRSA Bacteremia History of present illness: Mr. Castro is a 52 year old male with a past medical history of ESRD on HD, CHF , COPD, CAD, GERD, HLD, HTN, UT, PAD, and previous MRSA bacteremia secondary to infected temporary dialysis catheter. The patient was admitted to the hospital for hypotension and weakness. We are consulted 05/08/17 for MRSA bacteremia. The patient is a 52 year old male with a past medical history as stated above. The patient has been on HD for about a year and was treated earlier this year for MRSA infection of a previous TDC. There are no culture reports from this infection in our system and the patient is somewhat of a poor historian. He does tell me that he was treated with IV Vanc at the HD center for an unknown amount of time. He had the infected TDC removed and a new one placed January 28, 2017. Apparently, the patient was sent to our ER on the day of admission for hypotension that was noted during HD. The patient also reported severe generalized weakness, subjective chills, and nausea. Upon arrival, the patient was afebrile, but had tachycardia, leukocytosis with bandemia, and mild hypotension. Labs revealed a WBC of 12.9 and lactic acid of 8.6. He also had hyponatremia and hypokalemia. CXR showed a RLL infiltrate. Blood cultures were obtained x 2 sets and the patient was started on empiric IV antibiotics. He was admitted to the hospital for further evaluation and treatment. Since admission, the peripheral blood cultures drawn in the ER have come back positive 2/2 sets for MRSA. Leukocytosis and bandemia have resolved. Lactic acidosis has improved. Urinalysis was obtained that appears contaminated. Urine culture is pending. Additional blood cultures from the TDC have been drawn and are pending. Nephrology has been consulted. The patient remains on IV Vanc with IV Cefepime. We've been asked to evaluate and make further recommendations. During my exam today, the patient states that overall he feels better. He states that for the past couple of weeks, he has had progressing weakness, decreased appetite, and nausea with dry heaves. He denies any fevers or rigors. He denies any headaches, but does report chronic neck pain. He denies chest pain , but reports a chronic non-productive cough. He denies shortness of breath. He denies abdominal pain, but states he has had a poor appetite. He does still make a small amount of urine and denies any urinary complaints. He reports chronic back pain that is at his baseline. He denies diarrhea or constipation. He denies oral thrush or new skin lesions. He complains of intermittent pain at the site of his TDC and states that he has had some drainage intermittently, but he's not sure the color/consistency of the drainage or if there has been any redness or warmth. CC: Dylan Caceres, DO Past Med Surg Social Fam HX - Past Medical History Attestation: Yes The following information was validated with the patient. Source: patient, old records reviewed, nursing notes reviewed Medical history: arthritis, CHF, COPD, coronary artery disease, dialysis, GERD, hyperlipidemia, hypertension, myocardial infarction, osteoporosis, peripheral artery disease, renal disease, other Psychiatric history: anxiety, bipolar, depression, other - Past Surgical History Surgical History: non-contributory, vascular surgery, other (Dental surgery) - Social History Smoking Status: Current every day smoker Packs per day: 1/2 PACK Smokeless Tobacco Status: Yes Alcohol use: none Drug use: marijuana Occupational status: unemployed Current living situation: Home - Independent Activity Level: Independent ambulation Recent Out of Country Travel Within the Last 8 Weeks: No Exposure or Possible Exposure to Illness During Travel: No - Family History Mother Hx Family Cardiac Disorders: Yes Father Hx Family Cardiac Disorders: Yes Infectious Disease-CN:Meds Citalopram [CeleXA] 40 mg PO DAILY 10/02/15 [History] Fluticasone/Salmeterol [Advair 250-50 Diskus] 1 puff IH BID 10/02/15 [History] Furosemide [Lasix] 40 mg PO BID 10/02/15 [History] Lidocaine Patch [Lidoderm 5% patch] 1 patch TP DAILY 10/02/15 [History] hydrOXYzine HCl [Hydroxyzine HCl] 25 mg PO TID 10/02/15 [History] Isosorbide MONOnitrate (24 HR) [Imdur] 30 mg PO DAILY #30 tab.er.24h 09/03/16 [ Rx] Ferrous Sulfate [Iron] 325 mg PO DAILY 10/04/16 [History] Carvedilol [Coreg] 6.25 mg PO BID 11/03/16 [History] Ergocalciferol (VITAMIN D2) [Vitamin D2] 50,000 unit PO QWEEK 11/03/16 [History] Lisinopril [Zestril] 10 mg PO DAILY 11/03/16 [History] Simvastatin [Zocor] 40 mg PO HS 11/03/16 [History] Tizanidine HCl [Zanaflex] 4 mg PO TID 11/03/16 [History] Ipratropium/Albuterol Sulfate [Combivent Respimat Inhal [place]] 1 puff IH QID 04/28 [History] Aspirin 81 mg PO DAILY #30 tab.chew 11/24/16 [Rx] Albuterol Sulfate [Proair Hfa] 2 puff IH Q4H PRN 05/08/17 [History] BuPROPion SR (12 HR) [Wellbutrin SR] 150 mg PO BID 05/08/17 [History] Calcium Acetate [Phos-LO] 1,334 mg PO TIDWM 05/08/17 [History] Gabapentin [Neurontin] 800 mg PO QID 05/08/17 [History] Metoprolol Tartrate [Lopressor] 50 mg PO DAILY 05/08/17 [History] Mupirocin [Bactroban Oint] 1 appl TP BID 05/08/17 [History] Ondansetron HCl [Zofran] 4 mg PO BID 05/08/17 [History] Potassium Chloride [Klor-Con 10] 10 meq PO BID 05/08/17 [History] Sevelamer [Renvela] 2,400 mg PO TIDWM 05/08/17 [History] Tramadol HCl [Ultram] 50 mg PO TID PRN 05/08/17 [History] Allergies bee venom protein (honey bee) Adverse Reaction (Verified 05/07/17 16:52) Swelling of Lip/Tongue/Throat potassium Adverse Reaction (Verified 05/07/17 16:52) Vomiting prednisone Adverse Reaction (Verified 05/07/17 16:52) Vomiting All systems: reviewed and no additional remarkable complaints except as stated Exam - Constitutional Vitals: Temp Pulse Resp BP Pulse Ox 98.3 F 80 16 125/67 95 05/08/17 11:54 05/08/17 11:54 05/08/17 11:54 05/08/17 11:54 05/08/17 11:54 General appearance: average body habitus, cooperative, no acute distress - Head Head exam: Present: atraumatic, normal inspection, normocephalic - Eye Eye exam: Present: EOMI, normal appearance, PERRL Pupils: Present: normal accommodation Additional comments: No subconjunctival hemorrhage noted. - ENT ENT exam: Present: mucous membranes moist - Neck Neck exam: Present: normal inspection - Respiratory Respiratory exam: Present: CTAB. Absent: rales, respiratory distress, rhonchi, wheezes - Cardiovascular Cardiovascular exam: Present: RRR, +S1, +S2 - GI/Abdominal GI/Abdominal exam: Present: normal bowel sounds, soft. Absent: distended, tenderness - Extremities Exam Extremities exam: Present: pedal edema (1+ BLE). Absent: joint swelling, tenderness Additional comments: BLE venous stasis dermatitis noted. - Back Exam Back exam: Present: normal inspection. Absent: paraspinal tenderness, vertebral tenderness - Neurological Exam Neurological exam: Present: alert, oriented X3, no focal deficits - Psychiatric Psychiatric exam: Present: normal affect, normal mood - Skin Skin exam: Present: dry, intact, normal color, warm Additional comments: No endocarditis stigmata noted. Infectious Disease CN: Results - Labs CBC & Chem 7: 05/09/17 02:47 05/09/17 02:47 Cultures: Cultures 05/07/17 17:45 Blood Culture - Preliminary Peripheral Venipuncture Gram Positive Cocci 05/07/17 17:42 Blood Culture - Preliminary Peripheral Venipuncture Gram Positive Cocci Serology: Serology 05/08/17 Range/Units 00:25 Urine Color Red A (Yellow) Urine Clarity Turbid A (Clear) Urine pH 6.0 (5.0-8.0) pH Units Ur Specific [place] 1.028 H (1.010-1.025) Urine Protein >=1000 H (Neg-Trace) mg/dL Urine Glucose (UA) 250 H (Normal) mg/dL Urine Ketones Trace H (Negative) mg/dL Urine Blood Large H (Negative) Urine Nitrite Negative (Negative) Urine Bilirubin Small H (Negative) Urine Urobilinogen Normal (Normal) mg/dL Ur Leukocyte Esterase Small H (Negative) Urine Microscopic RBC TNTC H (0-3) per hpf Urine Microscopic WBC 50-100 H (0-3) per hpf Ur Squamous Epith Cells Many H (None-Few) per lpf Urine Bacteria None Seen (None-Few) per hpf Hyaline Casts Few (None-Few) per lpf Ur Culture Indicated? YES A (NO) Consult Discharge Plan - Plan Referrals: Nallely Hanna CNP [Primary Care Provider] - 05/15/17 8:45 am (Please follow up as schedule..) - Attending Attestation I examined this patient and my medical decision-making was reviewed with the Resident Physician. I agree with the documented findings, disposition and treatment plan as described except to the extent set forth below. This is an addendum to original report dictated by Fariba Cross CNP. Please refer to Bryce leon for full detail. Patient is a 52-year-old gentleman admitted to [facility] with severe sepsis on . We were asked to evaluate the patient for MRSA bacteremia. Patient with past medical history mentioned below including end-stage renal disease on hemodialysis with history of previous MRSA bacteremia secondary to infected temporal dialysis catheter was sent to edema from the dialysis Center with hypotension and weakness fatigue and overall not feeling well. Patient did have subjective chills and nausea. On arrival patient was noted to be as severe sepsis with leukocytosis, lactic acidosis. Chest x-ray was done and it revealed right lower lobe infiltrate. Blood cultures were obtained and patient was started on empiric antibiotics. Blood cultures revealed 2 out of 2 sets positive for MRSA. Patient hasnt was admitted and we were consult. At this point patients MRSA bacteremia is likely due to the temperature dialysis catheter. Recommend removing the dialysis catheter, start patient on IV vancomycin. As for the questionable pneumonia, causative organism is not clear. Well check strep pneumo and legionella urine antigens, I dont think the patient needs cefepime. Well switch him to Rocephin and continue vancomycin. Well monitor labs and for drug toxicity. Patient will need ROSITA prior to discharge. Duration of treatment depends on the clinical picture.
[2017-05-08] MEDS ORDERED: Potassium Chloride 40 MEQ/200 ML BAG IVPB PRN ×2 (14:09→15:00)
--- NOTE | 2017-05-08 14:19 | Electrocardiograph Report ---
[address] [place] [address] Test Date: 2017-05-07 Pat Name: Steve Castro Department: 103 Room: 2A43 Gender: M [employer] Hand: EKP : 1965 Requested By: Chaparro Carter Order Number: [id number] Reading MD: Humphrey Earl MD Measurements Intervals [place] Rate: 87 P: 19 TN: 143 QRS: 53 QRSD: 102 T: -27 QT: 453 QTc: 497 Interpretive Statements SINUS RHYTHM INFERIOR MYOCARDIAL INFARCTION, OF INDETERMINATE AGE Electronically Signed On 05-08-2017 14:18:00 EDT by Humphrey Earl MD
[2017-05-08] MEDS ORDERED: Potassium Chloride 40 MEQ/200 ML BAG IVPB SCH ×3 (15:00→20:30)
[2017-05-08 15:40] LABS: Acinetobacter baumannii by PCR Not Detected (Not Detect); Candida albicans by PCR Not Detected (Not Detect); Candida glabrata by PCR Not Detected (Not Detect); Candida krusei by PCR Not Detected (Not Detect); Candida parapsilosis by PCR Not Detected (Not Detect); Candida tropicalis by PCR Not Detected (Not Detect); Enterococcus by PCR Not Detected (Not Detect); Escherichia coli by PCR Not Detected (Not Detect); Klebsiella oxytoca by PCR Not Detected (Not Detect); Klebsiella pneumoniae by PCR Not Detected (Not Detect); Pseudomonas aeruginosa by PCR Not Detected (Not Detect); Serratia marcescens by PCR Not Detected (Not Detect); Staphylococcus aureus by PCR ***DETECTED*** (Not Detect); Streptococcus agalactiae(B)PCR Not Detected (Not Detect); Streptococcus by PCR Not Detected (Not Detect); Streptococcus pneumoniae PCR Not Detected (Not Detect); Streptococcus pyogenes (A) PCR Not Detected (Not Detect); blaKPC Carbapenem-Resist Gene Not Detected (Not Detect); mecA Methicillin-Resist Gene ***DETECTED*** (Not Detect); vanA/B Vancomycin-Resist Genes Not Detected (Not Detect)
[2017-05-08] MEDS ORDERED: Potassium Chloride 40 MEQ, Lidocaine 1% 2 ML in D5% in Water 500 ML IVPB ONE (19:36)
[2017-05-09] MEDS: *HR* HYDROcodone/Acet 5/325 mg TABLET PO PRN ×3 (04:11→20:29)
[2017-05-09 04:40] LABS: Red Cell Distribution Width 13.8 % (11.5-14.5)
[2017-05-09 04:41] LABS: Hematocrit 24.1 % (37.5-50.1); Hemoglobin 8.1 g/dL (12.9-16.9); Mean Corpuscular HGB Conc 33.6 g/dL (31.6-35.5); Mean Corpuscular Hemoglobin 29.1 pg (28.0-33.3); Mean Corpuscular Volume 86.7 fL (83.0-100.0); Mean Platelet Volume 10.6 fL (9.4-12.4); Red Blood Count 2.78 M/mcL (4.19-5.50)
[2017-05-09] MEDS: Ipratropium/Albuterol Neb 3 ML IH SCH ×4 (04:46→22:36)
[2017-05-09 04:51] LABS: Calcium 7.6 mg/dL (8.6-10.8); Phosphorous 1.8 mg/dL (2.3-4.7); Potassium 3.2 mEq/L (3.5-4.5)
[2017-05-09] MEDS: *HR* Heparin 5,000 UNIT/ML VIAL SQ SCH ×2 (06:23→14:23)
[2017-05-09] MEDS ORDERED: Potassium Chloride 40 MEQ, Lidocaine 1% 2 ML in D5% in Water 500 ML IVPB ONE (07:55)
[2017-05-09] MEDS ORDERED: 0.9 % Sodium Chloride 250 ML IVC PRN (08:01)
--- NOTE | 2017-05-09 08:04 | Nephrology Progress Note ---
Date of Encounter: 05/09/17 Time of Encounter: 09:15 - 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 Plan (1) ESRD (end stage renal disease) on dialysis Current Visit: Yes Status: Acute HD today after Permacath removal and placement of the temporary HD catheter. (2) Bacteremia Current Visit: Yes Status: Acute I've consulted IR to request Permacath removal and placement of a Temporary HD catheter before HD today. (3) Hyponatremia Current Visit: No Status: Acute Acute on chronic. Likely worsened overnight from the IVF 0.9% saline that he received, which I've stopped this AM. Will use a lower Na bath with HD today at 130 to avoid overcorrecting and will attempt to remove 3kg as tolerated to correct this hypervolemic hyponatremia. (4) Fluid overload Current Visit: No Status: Acute Will need fluid removal today d/t his hx of chronic edema in the setting of ESRD. Qualifiers: Hypervolemia type: unspecified Qualified Code(s): E87.70 - Fluid overload, unspecified (5) Hypokalemia Current Visit: No Status: Acute Agree with repleting the hypokalemia, but please avoid IV based KCl, but rather would use PO KCl. Any additional volume from the IV based KCl would worsen his hypervolemic hyponatremia. Xylocaine noted in the KCl. Discussed with the primary team. Will use a 4K bath to help raise the serum K+ on HD today. Will also check serum Mg. Subjective Principal diagnosis: ESRD, Hyponatremia, Bacteremia Interval history: Pt was s/e. He did not affirm N/V/D or chest pain but did report generalized fatigue symptoms. He last dialyzed on Friday, he affirmed. Objective - Vital Signs Vital signs: Vital Signs Temp Pulse Resp BP Pulse Ox 05/09/17 07:25 98.4 F 79 17 153/73 96 05/09/17 03:44 97.8 F 68 16 158/81 98 05/08/17 23:28 97.9 F 80 16 169/77 98 05/08/17 22:46 16 99 05/08/17 19:51 97.6 F 73 17 162/79 100 05/08/17 16:46 97.5 F L 77 18 154/72 96 05/08/17 15:58 16 98 05/08/17 11:54 98.3 F 80 16 125/67 95 05/08/17 10:59 16 98 05/08/17 08:29 98.2 F 89 16 154/76 95 Intake and Output 05/08/17 05/09/17 05/09/17 23:59 07:59 15:59 Intake Total 50 / 50 522 / 522 Output Total 125 / 125 100 / 100 Balance -75 / -75 422 / 422 Intake: IV Fluids 50 / 50 522 / 522 Potassium Chloride 10 mEq 50 / 50 /100mL 10 meq In 100 ml @ 100 mls/hr IVPB Q1H ROWAN Rx#:[id number] KCl 40 MEQ Xylocaine 2 ML 522 / 522 In Dextrose 5% 500 ML @ 130.5 mls/hr IVPB ONCE ONE Rx#:[id number] Output: Urine 125 / 125 100 / 100 Other: Weight 80.9 kg Patient Weight 05/09/17 23:59 Weight 80.9 kg - General Appearance General appearance: Present: obese, chronically ill Exam: Appears older than listed age EENT: Present: ATNC, PERRL, mucous membranes moist Neck: Present: supple Respiratory: Present: clear Cardiology: Present: edema, regular rate, normal S1, normal S2 Dialysis Vascular Access: Venous Catheter (Permacath without tunnel tenderness to palpation) Gastrointestinal: Present: normoactive bowel sounds, no tenderness Integumentary: Present: warm and dry Additional Comments: dark, tanned skin Neurologic: Present: no focal deficit, no asterixis, alert and oriented x3 Musculoskeletal: Present: no cyanosis, no clubbing Psychiatric: Present: depressed, cooperative - Lab 05/09/17 02:47 05/09/17 02:47 Most recent lab results Calcium 7.6 mg/dL (8.6-10.8) L 05/09/17 02:47 Phosphorus 1.8 mg/dL (2.3-4.7) L 05/09/17 02:47 Magnesium 1.7 mg/dL (1.6-2.6) 05/07/17 17:42 Consult Discharge Plan - Plan Referrals: Nallely Hanna CNP [Primary Care Provider] - 05/15/17 8:45 am (Please follow up as schedule..)
[2017-05-09] MEDS: Nicotine 21 MG PATCH.TD24 TD SCH (08:24)
[2017-05-09] MEDS: tiZANidine 4 MG TABLET PO SCH ×2 (08:25→14:23)
[2017-05-09] MEDS: Aspirin 81 MG TAB.CHEW PO SCH (08:25)
--- NOTE | 2017-05-09 09:22 | Internal Med Progress Note ---
<Oscar Adkins - Last Filed: 05/09/17 13:26> Date of Encounter: 05/09/17 Time of Encounter: 09:22 - 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 plan (1) Severe sepsis Current Visit: Yes Status: Acute 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 plan: Likely secondary to MRSA bacteremia. Leukocytosis resolved Peripheral blood cultures drawn 05/07/17 are positive 2/2 sets for MRSA. Blood cultures drawn from the TDC are positive x 2 sets. No endocarditis stigmata noted on exam. The patient has one major and one minor Modified Buitrago's criteria. Get TTE. If negative, will need ROSITA. ID following New right femoral HDC line in placed by IR. (2) Septicemia due to methicillin resistant Staphylococcus aureus Current Visit: Yes Status: Acute 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 plan: See above Patient had a previous MRSA bacteremia from a previous temporary dialysis catheter treated with IV Vanc at the dialysis center. Previous TDC removed with the insertion of a new line the same day. (3) Pneumonia Current Visit: Yes Status: Acute 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 plan: Chest x-ray s reveals right lower lobe pneumonia Rocephin IV daily (day 2) Vancomycin (day 3) Qualifiers: Pneumonia type: due to unspecified organism Laterality: right Lung location: lower lobe of lung Qualified Code(s): J18.1 - Lobar pneumonia, unspecified organism (4) Hypokalemia Current Visit: No Status: Acute 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 plan: Continue to monitor. Nephrology following. Next hemodialysis today. (5) Hyponatremia Current Visit: No Status: Acute 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 plan: Hyperlipidemic hyponatremia. Continue HD today lower Na bath at 130 to avoid overcorrecting and will attempt to remove 3kg as tolerated to correct hypervolemic hyponatremia.. Nephrology following, (6) ESRD (end stage renal disease) on dialysis Current Visit: Yes Status: Acute 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 plan: See above. Nephrology following. Continue hemodialysis Friday (7) DVT prophylaxis Current Visit: No Status: Acute 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 plan: Heparin Patient seen and examined, plan discussed with and agreed upon with Dr. Leung - Subjective Interval history: Patient resting in bed. Patient denies any new complaints. New right femoral HDC line was placed today by IR. Patient scheduled for next hemodialysis today - Constitutional Vitals: Temp Pulse Resp BP Pulse Ox 98.4 F 79 17 153/73 96 05/09/17 07:25 05/09/17 07:25 05/09/17 07:25 05/09/17 07:25 05/09/17 07:25 General appearance: Present: disheveled, A&O X 3, no acute distress, answers questions appropriately - Head Head exam: Present: atraumatic, normocephalic - Eye Eye exam: Present: PERRL, conjuntiva pink, sclera anicteric Pupils: Present: PERRL - ENT ENT exam: Present: mucous membranes moist, normal oropharynx - Neck Neck exam general surgery: Present: supple, trachea midline. Absent: lymphadenopathy - Respiratory Respiratory exam: Present: CTAB. Absent: accessory muscle use, rales, rhonchi, wheezes - Cardiovascular Cardiovascular exam: Present: RRR, +S1, +S2. Absent: diastolic murmur, gallop, rubs, systolic murmur Additional comments: Left upper chest HDC removed, dressing intact - GI/Abdominal GI/Abdominal exam: Present: normal bowel sounds, soft, no peritoneal signs. Absent: distended, tenderness - Extremities Exam Extremities exam: Present: warm, radial pulses palpable and symetrical. Absent : calf tenderness, cyanotic, pedal edema Additional comments: Right femoral HDC line in place - Neurological Exam Neurological exam: Present: CN II-XII intact, oriented X3, no focal deficits. Absent: pronater drift, facial droop, speech deficit - Psychiatric Psychiatric exam: Present: flat affect, normal mood - Skin Skin exam: Present: dry, intact, warm Additional comments: Multiple tattoos, Bilateral lower extremity venous stasis dermatitis noted. Internal Medicine: Result - Labs CBC & Chem 7: 05/09/17 02:47 05/09/17 02:47 Labs: Short CBC 05/09/17 Range/Units 02:47 WBC 5.9 (4.3-11.1) K/mcL Hgb 8.1 L (12.9-16.9) g/dL Hct 24.1 L (37.5-50.1) % Plt Count 87 L (140-400) K/mcL [facility] 05/08/17 05/09/17 11:14 02:47 Sodium 123 L 120 L* Potassium 2.7 L 3.2 L Chloride 92 L 91 L Carbon Dioxide 23 22 BUN 14 17 Creatinine 3.30 H 3.42 H Glucose 128 H 114 H Calcium 7.7 L 7.6 L Liver Function 05/08/17 Range/Units 11:14 Total Bilirubin 0.4 (0.2-1.2) mg/dL AST 62 H (5-34) Units/L ALT < 6 (0-55) Units/L Alkaline Phosphatase 65 (38-126) Units/L Albumin 2.2 L (3.5-5.0) g/dL - Impressions Impressions KUB X-Ray 05/09/17 11:58 IMPRESSION: Right femoral line in place terminating at the right of the midline at the L2 level. D/ / 05/09/2017 12:37:52 Natanael Wade MD / ricki Interpreting Provider: Natanael Wade MD Consult Discharge Plan - Plan Referrals: Nallely Hanna CNP [Primary Care Provider] - 05/15/17 8:45 am (Please follow up as schedule..) <German Leung P - Last Filed: 05/09/17 17:29> Date of Encounter: 05/09/17 - Constitutional Vitals: Temp Pulse Resp BP Pulse Ox 97.7 F 76 19 173/88 100 05/09/17 15:46 05/09/17 15:46 05/09/17 16:29 05/09/17 15:46 05/09/17 16:29 Internal Medicine: Result - Labs CBC & Chem 7: 05/09/17 02:47 05/09/17 02:47 Labs: Short CBC 05/09/17 Range/Units 02:47 WBC 5.9 (4.3-11.1) K/mcL Hgb 8.1 L (12.9-16.9) g/dL Hct 24.1 L (37.5-50.1) % Plt Count 87 L (140-400) K/mcL BMP 05/09/17 02:47 Sodium 120 L* Potassium 3.2 L Chloride 91 L Carbon Dioxide 22 BUN 17 Creatinine 3.42 H Glucose 114 H Calcium 7.6 L - ABG Interpretation ABG results: PT/INR, D-dimer PT 12.3 Seconds (9.4-12.1) H 05/09/17 12:31 - Impressions Impressions Guidance Ultrasound 05/09/17 00:00 IMPRESSION: Successful ultrasound and fluoroscopy guided non-tunneled right femoral temporary dialysis catheter placement. D/ / 05/09/2017 15:32:53 Trinity Monet MD / kaylee Interpreting Provider: Trinity Monet MD Insertion Non-Tunneled Catheter 05/09/17 00:00 IMPRESSION: Successful ultrasound and fluoroscopy guided non-tunneled right femoral temporary dialysis catheter placement. D/ / 05/09/2017 15:32:53 Trinity Monet MD / kaylee Interpreting Provider: Trinity Monet MD Tunnelled Catheter Removal 05/09/17 00:00 IMPRESSION: Successful PermCath removal. D/ / 05/09/2017 15:30:57 Triniyt Monet MD / kaylee Interpreting Provider: Trinity Monet MD X-Ray 05/09/17 11:58 IMPRESSION: Right femoral line in place terminating at the right of the midline at the L2 level. D/ / 05/09/2017 12:37:52 Natanael Wade MD / ricki Interpreting Provider: Natanael Wade MD - Attending Attestation I examined this patient and my medical decision-making was reviewed with the Resident Physician. I agree with the documented findings, disposition and treatment plan as described except to the extent set forth below.
--- NOTE | 2017-05-09 10:31 | Infectious Disease Progress No ---
Date of Encounter: 05/09/17 Time of Encounter: 10:28 - 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 Plan (1) Severe sepsis Current Visit: Yes Status: Acute The patient had two SIRS criteria plus hypotension responsive to IV fluids. He also had lactic acidosis. Likely secondary to bacteremia. Improved. Hypotension resolved. WBC has normalized and bandemia has resolved. Lactic acid improved. Peripheral blood cultures drawn 05/07/17 are positive 2/2 sets for MRSA. Blood cultures drawn from the TDC are positive x 2 sets. Additional peripheral blood cultures x 2 sets this morning. (2) Bacteremia Current Visit: Yes Status: Acute Causative organism MRSA. Source likely the TDC. Clinically, it does not appear infected. Patient had a previous MRSA bacteremia from a previous temporary dialysis catheter treated with IV Vanc at the dialysis center. Previous TDC removed with the insertion of a new line the same day. Peripheral blood cultures drawn 05/07/17 are positive 2/2 sets for MRSA. Blood cultures drawn from the TDC are positive x 2 sets as well. Additional peripheral blood cultures drawn this morning are pending x 2 sets. No endocarditis stigmata noted on exam. The patient has one major and one minor Modified Buitrago's criteria. Get TTE. If negative, will need ROSITA.eam. Continue Vancomycin IV. Pharmacy to dose. Goal trough approximately 15. Duration of treatment depends on the clinical picture. Monitor for drug toxicity and dose-adjust antibiotics. (3) Central line-associated bloodstream infection Current Visit: Yes Status: Acute Secondary to infected tunneled dialysis catheter. Causative organism MRSA. IR consulted to have line removed after patient get HD today. Recommend leaving patient catheter-free until next HD session is needed. Will discuss with nephrology. Qualifiers: Encounter type: initial encounter Qualified Code(s): T80.211A - Bloodstream infection due to central venous catheter, initial encounter (4) Pneumonia Current Visit: Yes Status: Acute Location: Right lower lobe. Causative organism unclear. Get sputum culture if patient is able to give an adequate specimen. Check S. pneumo and Legionella UAT. Patient is on HD and makes little urine, but we will attempt to get an adequate specimen. Continue Rocephin 2 grams IV daily. Continue Vancomycin IV. Pharmacy to dose. Goal trough approximately 15. Duration of treatment depends on the clinical picture. Monitor drug toxicity and dose-adjust antibiotics. Qualifiers: Pneumonia type: due to unspecified organism Laterality: right Lung location: lower lobe of lung Qualified Code(s): J18.1 - Lobar pneumonia, unspecified organism (5) Lactic acidosis Current Visit: Yes Status: Acute Lactic acid elevated at 8.6 on admission. Likely secondary to sepsis. Improved. Repeat lactic acid 2.6. Continue to trend. (6) Hypokalemia Current Visit: No Status: Acute Serum potassium remains low this morning. Management per the primary and nephrology teams. (7) Hyponatremia Current Visit: No Status: Acute Serum sodium 120 this morning. Management per the primary and nephrology teams. (8) COPD (chronic obstructive pulmonary disease) Current Visit: No Status: Chronic Qualifiers: COPD type: unspecified COPD Qualified Code(s): J44.9 - Chronic obstructive pulmonary disease, unspecified (9) ESRD (end stage renal disease) on dialysis Current Visit: No Status: Chronic Nephrology consulted and following. - Subjective Interval history: Patient seen and examined. No acute events noted overnight. Patient states he has a headache this morning that is generalized and causing some mild nausea and photophobia. He denies any fevers or chills or rigors. He denies any chest pain or shortness of breath. He does report a chronic moist cough. He denies any vomiting, diarrhea or abdominal pain. He does report some mild nausea and abdominal discomfort and states he feels like he needs to have a bowel movement but can't. He denies any urinary complaints. He denies any oral thrush or new skin lesions. Interventional radiology has been consulted to remove the patient' s temporary dialysis catheter today. Infect Dis PN-Objective Data - Labs CBC & Chem 7: 05/09/17 02:47 05/09/17 02:47 Labs: Laboratory Results - last 24 hr 05/08/17 05/08/17 05/08/17 00:11 11:14 11:14 WBC RBC Hgb Hct MCV MCH MCHC RDW Plt Count MPV Immature Plt Fraction Sodium 123 L Potassium 2.7 L Chloride 92 L Carbon Dioxide 23 BUN 14 Creatinine 3.30 H Est GFR ( Amer) 24 L Est GFR (Non-Af Amer) 20 L BUN/Creatinine Ratio 4 L Glucose 128 H Calculated Osmolality 258 L Lactic Acid 2.6 H Calcium 7.7 L Phosphorus Total Bilirubin 0.4 AST 62 H ALT < 6 Alkaline Phosphatase 65 Serum Total Protein 5.1 L Albumin 2.2 L Globulin 2.9 Albumin/Globulin Ratio 0.8 L Random Vancomycin A. baumannii (PCR) Not Detected Tashia albicans (PCR) Not Detected C. glabrata (PCR) Not Detected C. krusei (PCR) Not Detected C. parapsilosis (PCR) Not Detected C. tropicalis (PCR) Not Detected Enterobacteriac sp PCR Not Detected E. cloacae complex PCR Not Detected Enterococcus sp PCR Not Detected E. coli (PCR) Not Detected H. influenzae (PCR) Not Detected Klebsiella oxytoca PCR Not Detected Klebsiella pneumoniae Not Detected List. monocytogenes PCR Not Detected N. meningitidis (PCR) Not Detected Proteus species (PCR) Not Detected Serratia marcescens PCR Not Detected Staphylococcus sp PCR DETECTED A Staph aureus (PCR) DETECTED A mecA-Methicil Res Gene DETECTED A Streptococcus sp PCR Not Detected Group A Strep DNA Not Detected Group B Strep (PCR) Not Detected Strep pneumoniae (PCR) Not Detected P. aeruginosa (PCR) Not Detected Britta/B-Vanco Res Genes Not Detected KPC (blaKPC) Detect PCR Not Detected 05/09/17 05/09/17 05/09/17 02:47 02:47 02:47 WBC 5.9 RBC 2.78 L Hgb 8.1 L Hct 24.1 L MCV 86.7 MCH 29.1 MCHC 33.6 RDW 13.8 Plt Count 87 L MPV 10.6 Immature Plt Fraction 10.0 H Sodium 120 L* Potassium 3.2 L Chloride 91 L Carbon Dioxide 22 BUN 17 Creatinine 3.42 H Est GFR ( Amer) 23 L Est GFR (Non-Af Amer) 19 L BUN/Creatinine Ratio 5 L Glucose 114 H Calculated Osmolality 252 L Lactic Acid Calcium 7.6 L Phosphorus 1.8 L Total Bilirubin AST ALT Alkaline Phosphatase Serum Total Protein Albumin Globulin Albumin/Globulin Ratio Random Vancomycin 19.0 A. baumannii (PCR) Tashia albicans (PCR) C. glabrata (PCR) C. krusei (PCR) C. parapsilosis (PCR) C. tropicalis (PCR) Enterobacteriac sp PCR E. cloacae complex PCR Enterococcus sp PCR E. coli (PCR) H. influenzae (PCR) Klebsiella oxytoca PCR Klebsiella pneumoniae List. monocytogenes PCR N. meningitidis (PCR) Proteus species (PCR) Serratia marcescens PCR Staphylococcus sp PCR Staph aureus (PCR) mecA-Methicil Res Gene Streptococcus sp PCR Group A Strep DNA Group B Strep (PCR) Strep pneumoniae (PCR) P. aeruginosa (PCR) Britta/B-Vanco Res Genes KPC (blaKPC) Detect PCR Cultures: Cultures 05/08/17 00:10 Blood Culture - Preliminary Central Venous Catheter Gram Positive Cocci 05/08/17 00:25 Urine Culture - Final Urine,Clean Catch No growth. 05/08/17 00:11 Blood Culture - Preliminary Central Venous Catheter Gram Positive Cocci Serology 05/08/17 05/08/17 Range/Units 00:25 00:11 Urine Color Red A (Yellow) Urine Clarity Turbid A (Clear) Urine pH 6.0 (5.0-8.0) pH Units Ur Specific Boyd 1.028 H (1.010-1.025) Urine Protein >=1000 H (Neg-Trace) mg/dL Urine Glucose (UA) 250 H (Normal) mg/dL Urine Ketones Trace H (Negative) mg/dL Urine Blood Large H (Negative) Urine Nitrite Negative (Negative) Urine Bilirubin Small H (Negative) Urine Urobilinogen Normal (Normal) mg/dL Ur Leukocyte Esterase Small H (Negative) Urine Microscopic RBC TNTC H (0-3) per hpf Urine Microscopic WBC 50-100 H (0-3) per hpf Ur Squamous Epith Cells Many H (None-Few) per lpf Urine Bacteria None Seen (None-Few) per hpf Hyaline Casts Few (None-Few) per lpf Ur Culture Indicated? YES A (NO) A. baumannii (PCR) Not Detected (Not Detect) Tashia albicans (PCR) Not Detected (Not Detect) C. glabrata (PCR) Not Detected (Not Detect) C. krusei (PCR) Not Detected (Not Detect) C. parapsilosis (PCR) Not Detected (Not Detect) C. tropicalis (PCR) Not Detected (Not Detect) Enterobacteriac sp PCR Not Detected (Not Detect) E. cloacae complex PCR Not Detected (Not Detect) Enterococcus sp PCR Not Detected (Not Detect) E. coli (PCR) Not Detected (Not Detect) H. influenzae (PCR) Not Detected (Not Detect) Klebsiella oxytoca PCR Not Detected (Not Detect) Klebsiella pneumoniae Not Detected (Not Detect) List. monocytogenes PCR Not Detected (Not Detect) N. meningitidis (PCR) Not Detected (Not Detect) Proteus species (PCR) Not Detected (Not Detect) Serratia marcescens PCR Not Detected (Not Detect) Staphylococcus sp PCR DETECTED A (Not Detect) Staph aureus (PCR) DETECTED A (Not Detect) mecA-Methicil Res Gene DETECTED A (Not Detect) Streptococcus sp PCR Not Detected (Not Detect) Group A Strep DNA Not Detected (Not Detect) Group B Strep (PCR) Not Detected (Not Detect) Strep pneumoniae (PCR) Not Detected (Not Detect) P. aeruginosa (PCR) Not Detected (Not Detect) Britta/B-Vanco Res Genes Not Detected (Not Detect) KPC (blaKPC) Detect PCR Not Detected (Not Detect) Exam - Constitutional Vitals: Temp Pulse Resp BP Pulse Ox 98.4 F 79 17 153/73 96 05/09/17 07:25 05/09/17 07:25 05/09/17 07:25 05/09/17 07:25 05/09/17 08:31 General appearance: average body habitus, cooperative, no acute distress - Head Head exam: Present: atraumatic, normal inspection, normocephalic - Eye Eye exam: Present: EOMI, normal appearance, PERRL Pupils: Present: normal accommodation Additional comments: No subconjunctival hemorrhage noted. - ENT ENT exam: Present: mucous membranes moist - Neck Neck exam: Present: normal inspection - Respiratory Respiratory exam: Present: CTAB. Absent: rales, respiratory distress, rhonchi, wheezes - Cardiovascular Cardiovascular exam: Present: RRR, +S1, +S2 - GI/Abdominal GI/Abdominal exam: Present: distended, normal bowel sounds, soft. Absent: tenderness - Extremities Exam Extremities exam: Present: normal inspection. Absent: joint swelling, pedal edema, tenderness Additional comments: Bilateral lower extremity venous stasis dermatitis noted. No endocarditis stigmata. - Neurological Exam Neurological exam: Present: alert, oriented X3, no focal deficits - Psychiatric Psychiatric exam: Present: normal affect, normal mood - Skin Skin exam: Present: dry, intact, normal color, warm - Additional findings Additional findings: Tunneled dialysis catheter noted to the left upper chest with overlying dressing clean, dry, and intact. No tenderness, warmth, or erythema noted Consult Discharge Plan - Plan Referrals: Nallely Hanna CNP [Primary Care Provider] - 05/15/17 8:45 am (Please follow up as schedule..) - Attending Attestation I examined this patient and my medical decision-making was reviewed with the Resident Physician. I agree with the documented findings, disposition and treatment plan as described except to the extent set forth below.
[2017-05-09] MEDS: Budesonide/Formoterol 80/4.5 MDI IH SCH ×2 (11:04→22:36)
[2017-05-09] MEDS ORDERED: *HR* Heparin 5,000 UNIT/ML VIAL ONE (11:34)
[2017-05-09] MEDS ORDERED: 0.9 % Sodium Chloride 250 ML ONE (11:34)
--- NOTE | 2017-05-09 12:00 | IR Procedure Note ---
Date of procedure: 05/09/17 Consent Obtained: Written consent Timeout: Correct patient and procedure verified, Correct site verified, Time out performed, Skin prep completed Indications: renal failure, infected line Procedure Performed: permacath removal, temp HDC placement Site/Technique: rt femoral approach. rt IJ occluded Results/Findings: permacath removed in one piece, KUB will show position of new right femoral Estimated blood loss (cc): 2 Complications: None; Tolerated procedure well Post Procedure Treatment Plan: KUB, then dialyze
[2017-05-09 12:46] LABS: INR 1.1; Prothrombin Time 12.3 Seconds (9.4-12.1)
[2017-05-09] MEDS ORDERED: Sennosides/Docusate Sodium TABLET PO PRN (14:14)
[2017-05-09] MEDS ORDERED: Vancomycin 750 MG in D5% in Water 250 ML IVPB ONE (18:00)
[2017-05-09] MEDS ORDERED: Vancomycin 1,000 MG in D5% in Water 250 ML IVPB ONE (18:00)
[2017-05-09 21:35] LABS: Hepatitis B Surface Antigen Nonreactive (Nonreactive)
[2017-05-09 21:38] LABS: Hepatitis B Surface Antibody 69.32 mIU/mL
[2017-05-09] MEDS ORDERED: 0.9 % Sodium Chloride 2,000 ML ONE (22:17)
[2017-05-10] MEDS: *HR* Heparin 5,000 UNIT/ML VIAL SQ SCH ×4 (00:38→22:25)
[2017-05-10] MEDS: tiZANidine 4 MG TABLET PO SCH ×4 (00:38→22:26)
[2017-05-10] MEDS: *HR* HYDROcodone/Acet 5/325 mg TABLET PO PRN ×2 (03:34→09:10)
[2017-05-10] MEDS: Ipratropium/Albuterol Neb 3 ML IH SCH ×4 (04:18→22:04)
[2017-05-10 07:15] LABS: Hematocrit 24.2 % (37.5-50.1); Hemoglobin 8.3 g/dL (12.9-16.9); Mean Corpuscular HGB Conc 34.3 g/dL (31.6-35.5); Mean Corpuscular Hemoglobin 29.7 pg (28.0-33.3); Mean Corpuscular Volume 86.7 fL (83.0-100.0); Mean Platelet Volume 11.3 fL (9.4-12.4); Red Blood Count 2.79 M/mcL (4.19-5.50); Red Cell Distribution Width 13.9 % (11.5-14.5)
[2017-05-10 07:17] LABS: Platelet Count 89 K/mcL (140-400)
--- NOTE | 2017-05-10 07:24 | Internal Med Progress Note ---
<Oscar Adkins - Last Filed: 05/10/17 08:30> Date of Encounter: 05/10/17 Time of Encounter: 07:22 - 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 plan (1) Severe sepsis Current Visit: Yes Status: Acute 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 plan: Likely secondary to MRSA bacteremia. Leukocytosis resolved Peripheral blood cultures drawn 05/07/17 are positive 2/2 sets for MRSA. Blood cultures drawn from the TDC are positive x 2 sets. No endocarditis stigmata noted on exam. The patient has one major and one minor Modified Buitrago's criteria. Get TTE. If negative, will need ROSITA. ID following New right femoral HDC line in placed by IR. (2) Septicemia due to methicillin resistant Staphylococcus aureus Current Visit: Yes Status: Acute 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 plan: See above Patient had a previous MRSA bacteremia from a previous temporary dialysis catheter treated with IV Vanc at the dialysis center. Previous TDC removed with the insertion of a new line the same day. (3) Pneumonia Current Visit: Yes Status: Acute 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 plan: Chest x-ray s reveals right lower lobe pneumonia Rocephin IV daily (day 3) Vancomycin (day 4) Qualifiers: Pneumonia type: due to unspecified organism Laterality: right Lung location: lower lobe of lung Qualified Code(s): J18.1 - Lobar pneumonia, unspecified organism (4) Hypokalemia Current Visit: No Status: Acute 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 plan: Continue to monitor. Nephrology following. Continue hemodialysis MWF. (5) Hyponatremia Current Visit: No Status: Acute 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 plan: Improving. Hyperlipidemic hyponatremia. Avoid overcorrecting. Nephrology following, (6) ESRD (end stage renal disease) on dialysis Current Visit: Yes Status: Acute 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 plan: See above. Nephrology following. Continue hemodialysis Friday (7) HTN (hypertension) Current Visit: No Status: Chronic 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 plan: Resume home Lasix, Coreg, hold lisinopril. Continue hydralazine when necessary. Nephrology following Qualifiers: Hypertension type: renovascular hypertension Qualified Code(s): I15.0 - Renovascular hypertension (8) DVT prophylaxis Current Visit: No Status: Acute 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 plan: Heparin Patient seen and examined, plan discussed with and agreed upon with Dr. Leung - Subjective Interval history: Patient resting comfortably in bed. He is currently requiring his baseline 4 L of oxygen via nasal cannula. Patient denies any new complaints. Right femoral HDC line in place. ID and nephrology following - Constitutional Vitals: Temp Pulse Resp BP Pulse Ox 96.8 F L 89 19 165/79 99 05/10/17 06:55 05/10/17 06:55 05/10/17 06:55 05/10/17 06:55 05/10/17 06:55 General appearance: Present: disheveled, A&O X 3, no acute distress, answers questions appropriately - Head Head exam: Present: atraumatic, normocephalic - Eye Eye exam: Present: PERRL, conjuntiva pink, sclera anicteric Pupils: Present: PERRL - ENT ENT exam: Present: mucous membranes moist, normal oropharynx - Neck Neck exam general surgery: Present: supple, trachea midline. Absent: lymphadenopathy - Respiratory Respiratory exam: Present: decreased breath sounds, prolonged expiratory phase. Absent: accessory muscle use, rales, respiratory distress, rhonchi, wheezes Additional comments: 4 L oxygen via nasal cannula - Cardiovascular Cardiovascular exam: Present: RRR, +S1, +S2. Absent: diastolic murmur, gallop, rubs, systolic murmur Additional comments: Left chest pain dressing C/D/I status post HD catheter removal - GI/Abdominal GI/Abdominal exam: Present: normal bowel sounds, soft, no peritoneal signs. Absent: distended, guarding, tenderness - Extremities Exam Extremities exam: Present: warm, radial pulses palpable and symetrical. Absent : calf tenderness, cyanotic, pedal edema - Neurological Exam Neurological exam: Present: CN II-XII intact, oriented X3, no focal deficits. Absent: pronater drift, facial droop, speech deficit - Psychiatric Psychiatric exam: Present: normal affect, normal mood - Skin Skin exam: Present: dry, intact, warm. Absent: rash Additional comments: Tattoos, no bleeding at right femoral HD catheter site Internal Medicine: Result - Labs CBC & Chem 7: 05/10/17 06:39 05/10/17 06:39 Labs: Short CBC 05/10/17 Range/Units 06:39 WBC 4.0 L (4.3-11.1) K/mcL Hgb 8.3 L (12.9-16.9) g/dL Hct 24.2 L (37.5-50.1) % Plt Count 89 L (140-400) K/mcL - ABG Interpretation ABG results: PT/INR, D-dimer PT 12.3 Seconds (9.4-12.1) H 05/09/17 12:31 - Impressions Impressions Guidance Ultrasound 05/09/17 00:00 IMPRESSION: Successful ultrasound and fluoroscopy guided non-tunneled right femoral temporary dialysis catheter placement. D/ / 05/09/2017 15:32:53 Trinity Monet MD / kaylee Interpreting Provider: Trinity Monet MD Insertion Non-Tunneled Catheter 05/09/17 00:00 IMPRESSION: Successful ultrasound and fluoroscopy guided non-tunneled right femoral temporary dialysis catheter placement. D/ / 05/09/2017 15:32:53 Trinity Monet MD / kaylee Interpreting Provider: Trinity Monet MD Tunnelled Catheter Removal 05/09/17 00:00 IMPRESSION: Successful PermCath removal. D/ / 05/09/2017 15:30:57 Trinity Monet MD / kaylee Interpreting Provider: Trinity Monet MD X-Ray 05/09/17 11:58 IMPRESSION: Right femoral line in place terminating at the right of the midline at the L2 level. D/ / 05/09/2017 12:37:52 Natanael Wade MD / ricki Interpreting Provider: Natanael Wade MD Consult Discharge Plan - Plan Referrals: Nallely Hanna, MEKHI [Primary Care Provider] - 05/15/17 8:45 am (Please follow up as schedule..) <German Leung - Last Filed: 05/10/17 11:46> Date of Encounter: 05/10/17 - Constitutional Vitals: Temp Pulse Resp BP Pulse Ox 96.8 F L 89 19 165/79 99 05/10/17 06:55 05/10/17 06:55 05/10/17 06:55 05/10/17 06:55 05/10/17 06:55 Internal Medicine: Result - Labs CBC & Chem 7: 05/10/17 06:39 05/10/17 06:39 Labs: Short CBC 05/10/17 Range/Units 06:39 WBC 4.0 L (4.3-11.1) K/mcL Hgb 8.3 L (12.9-16.9) g/dL Hct 24.2 L (37.5-50.1) % Plt Count 89 L (140-400) K/mcL BMP 05/10/17 06:39 Sodium 126 L Potassium 3.3 L Chloride 94 L Carbon Dioxide 27 BUN 10 Creatinine 2.00 H Glucose 97 Calcium 7.7 L - ABG Interpretation ABG results: PT/INR, D-dimer PT 12.3 Seconds (9.4-12.1) H 05/09/17 12:31 - Impressions Impressions Guidance Ultrasound 05/09/17 00:00 IMPRESSION: Successful ultrasound and fluoroscopy guided non-tunneled right femoral temporary dialysis catheter placement. D/ / 05/09/2017 15:32:53 Trinity Monet MD / kaylee Interpreting Provider: Trinity Monet MD Insertion Non-Tunneled Catheter 05/09/17 00:00 IMPRESSION: Successful ultrasound and fluoroscopy guided non-tunneled right femoral temporary dialysis catheter placement. D/ / 05/09/2017 15:32:53 Trinity Monet MD / kaylee Interpreting Provider: Trinity Monet MD Tunnelled Catheter Removal 05/09/17 00:00 IMPRESSION: Successful PermCath removal. D/ / 05/09/2017 15:30:57 Trinity Monet MD / kaylee Interpreting Provider: Trinity Monet MD X-Ray 05/09/17 11:58 IMPRESSION: Right femoral line in place terminating at the right of the midline at the L2 level. D/ / 05/09/2017 12:37:52 Natanael Wade MD / ricki Interpreting Provider: Natanael Wade MD - Attending Attestation I examined this patient and my medical decision-making was reviewed with the Resident Physician. I agree with the documented findings, disposition and treatment plan as described except to the extent set forth below. Input from nephrology a pressure
[2017-05-10 07:36] LABS: Calcium 7.7 mg/dL (8.6-10.8); Potassium 3.3 mEq/L (3.5-4.5)
[2017-05-10] MEDS: Aspirin 81 MG TAB.CHEW PO SCH (08:12)
[2017-05-10] MEDS: Nicotine 21 MG PATCH.TD24 TD SCH (08:12)
[2017-05-10] MEDS: Budesonide/Formoterol 80/4.5 MDI IH SCH ×2 (09:39→22:04)
[2017-05-10] MEDS ORDERED: 0.9 % Sodium Chloride 250 ML IVC PRN (09:44)
--- NOTE | 2017-05-10 09:49 | Nephrology Progress Note ---
Date of Encounter: 05/10/17 Time of Encounter: 09:45 - 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 Plan (1) ESRD (end stage renal disease) on dialysis Current Visit: Yes Status: Acute HD again today for electrolyte mgt and UF for ongoing hypervolemia (which is inducing hyponatremia). I've ordered 3hr, 4K (to help correct the hypokalemia), 2.5 Ca, 136 Na (to help correct the Hyponatremia) and 35 bicarb Next HD will be planned for Friday. Infection/Bacteremia. Will have to wait for negative blood cultures before a new Permcath could be placed, so he will medically require a prolonged hospitalization. (2) Bacteremia Current Visit: Yes Status: Acute See above (3) Hyponatremia Current Visit: No Status: Acute See above (4) Fluid overload Current Visit: No Status: Acute Will need fluid removal today d/t his hx of chronic edema in the setting of ESRD. Qualifiers: Hypervolemia type: unspecified Qualified Code(s): E87.70 - Fluid overload, unspecified (5) Hypokalemia Current Visit: No Status: Acute Agree with repleting the hypokalemia, but please avoid IV based KCl, but rather would use PO KCl. Any additional volume from the IV based KCl would worsen his hypervolemic hyponatremia. Will utilize a 136Na bath while on HD today to help correct the hyponatremia as well as a goal of 3.5L of UF to help improve the hypervolemia. Subjective Principal diagnosis: ESRD, Hyponatremia, Bacteremia Interval history: Pt was s/e. He did not affirm N/V/D or chest pain but did report generalized fatigue symptoms. He denied having any problems with HD yesterday. He had not received the temporary HD catheter until late yesterday afternoon and HD did not get started until late and finished after midnight. Objective - Vital Signs Vital signs: Vital Signs Temp Pulse Resp BP Pulse Ox 05/10/17 06:55 96.8 F L 89 19 165/79 99 05/10/17 04:18 16 93 05/10/17 04:07 97.7 F 811 18 143/81 94 05/10/17 00:31 97.8 F 86 18 163/77 96 05/10/17 00:20 97.7 F 18 149/70 05/10/17 00:15 132/69 05/10/17 00:00 127/73 05/09/17 23:45 140/75 05/09/17 23:30 132/69 05/09/17 23:15 129/70 05/09/17 23:00 144/74 05/09/17 22:45 142/73 05/09/17 22:30 159/75 05/09/17 22:15 152/76 05/09/17 22:00 156/79 05/09/17 21:45 158/82 05/09/17 21:30 164/87 05/09/17 21:15 162/81 05/09/17 21:00 167/87 05/09/17 20:45 97.7 F 18 167/87 05/09/17 20:30 98 05/09/17 20:26 97.5 F L 94 18 186/86 98 05/09/17 17:31 166/73 05/09/17 16:29 19 100 05/09/17 15:46 97.7 F 76 19 173/88 100 05/09/17 11:55 97.7 F 82 18 161/82 98 05/09/17 11:06 18 98 Intake and Output 05/09/17 05/10/17 05/10/17 23:59 07:59 15:59 Intake Total 710 / 710 60 / 60 Output Total 0 / 0 3600 / 3600 Balance 710 / 710 -3540 / -3540 Intake: Oral 110 / 110 60 / 60 Intake, Rinseback and 600 / 600 Flushes Output: Urine 0 / 0 0 / 0 Total Dialysis (HD) 3600 / 3600 Output Other: Weight 84.4 kg Hemodialysis Net Fluid 3083 3000 Removed (mL) Patient Weight 05/10/17 23:59 Weight 84.4 kg - General Appearance General appearance: Present: chronically ill, fatigue, frail EENT: Present: ATNC, PERRL, mucous membranes moist Neck: Present: supple Respiratory: Present: clear Cardiology: Present: holosystolic murmur, edema, normal S1, normal S2 Dialysis Vascular Access: Venous Catheter (Right femoral temporary HD catheter with dressing in place - no active ozzing, and nontender to palpation. No surrounding erythema.) Gastrointestinal: Present: normoactive bowel sounds, no guarding, no organomegaly Neurologic: Present: no focal deficit, no asterixis, alert and oriented x3 Musculoskeletal: Present: no deformities, no erythema, no cyanosis Psychiatric: Present: mood/affect appropriate, cooperative - Lab 05/10/17 06:39 05/10/17 06:39 Most recent lab results Calcium 7.7 mg/dL (8.6-10.8) L 05/10/17 06:39 Phosphorus 1.8 mg/dL (2.3-4.7) L 05/09/17 02:47 Magnesium 1.7 mg/dL (1.6-2.6) 05/07/17 17:42 Consult Discharge Plan - Plan Referrals: Nallely Hanna, MEKHI [Primary Care Provider] - 05/15/17 8:45 am (Please follow up as schedule..)
[2017-05-10] MEDS: Furosemide 40 MG TABLET PO SCH ×2 (09:51→16:28)
[2017-05-10] MEDS: Isosorbide MONOnitrate (24 HR) 30 MG TAB.ER.24H PO SCH (09:51)
[2017-05-10] MEDS: hydrOXYzine pamoate 25 MG CAPSULE PO SCH ×3 (09:51→22:26)
[2017-05-10] MEDS: Gabapentin 400 MG CAPSULE PO SCH ×4 (09:51→22:26)
[2017-05-10] MEDS: Ondansetron ODT 4 MG TAB.RAPDIS PO SCH ×2 (09:51→22:26)
[2017-05-10] MEDS: BuPROPion SR (12 HR) 150 MG TABLET PO SCH ×2 (09:51→22:26)
[2017-05-10] MEDS ORDERED: Calcium Acetate 667 MG CAPSULE PO SCH (12:00)
[2017-05-10] MEDS ORDERED: 0.9 % Sodium Chloride 1,000 ML ONE (17:39)
[2017-05-11] MEDS: Ipratropium/Albuterol Neb 3 ML IH SCH ×7 (04:37→23:03)
[2017-05-11] MEDS: *HR* Heparin 5,000 UNIT/ML VIAL SQ SCH ×3 (06:41→21:00)
--- NOTE | 2017-05-11 07:09 | Internal Med Progress Note ---
<Oscar Adkins - Last Filed: 05/11/17 13:04> Date of Encounter: 05/11/17 Time of Encounter: 07:09 - 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 plan (1) Severe sepsis Current Visit: Yes Status: Acute 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 plan: Likely secondary to MRSA bacteremia. Leukocytosis resolved Peripheral blood cultures drawn 05/07/17 are positive 2/2 sets for MRSA. Blood cultures drawn from the TDC are positive x 2 sets. Repeat blood cultures pending No endocarditis stigmata noted on exam. The patient has one major and one minor Modified Buitrago's criteria. TTE reveals Valves not well visualized. LVEF 50-55%. Diastolic dysfunction, NOS , Severe pulmonary hypertension likely present Need ROSITA to provide improved diagnostic sensitivity for evaluation of endocarditis ID following New right femoral HDC line in placed by IR. Will have to wait for negative blood cultures before a new Permcath could be placed, so he will medically require a prolonged hospitalization. (2) Septicemia due to methicillin resistant Staphylococcus aureus Current Visit: Yes Status: Acute 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 plan: See above Patient had a previous history of MRSA bacteremia from a previous temporary dialysis catheter treated with IV Vanc at the dialysis center. Previous TDC removed 01/28/17 with the insertion of a new line the same day. (3) Pneumonia Current Visit: Yes Status: Acute 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 plan: 05/11/17 Chest x-ray reveals pulmonary edema, worse than on the previous chest x- ray. Clinical correlation and continued radiographic follow-up recommended as superimposed pneumonia at the right lung base cannot be excluded. Rocephin IV daily (day 4) Vancomycin (day 5) Qualifiers: Pneumonia type: due to unspecified organism Laterality: right Lung location: lower lobe of lung Qualified Code(s): J18.1 - Lobar pneumonia, unspecified organism (4) Hypokalemia Current Visit: No Status: Resolved 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 plan: Continue to monitor. Nephrology following. Continue hemodialysis MWF. (5) Hyponatremia Current Visit: No Status: Acute 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 plan: Improving. Hyperlipidemic hyponatremia. Avoid overcorrecting or excessive hydration. Nephrology following, (6) ESRD (end stage renal disease) on dialysis Current Visit: Yes Status: Acute 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 plan: See above. Nephrology following. Last HD 05/10/17. Continue hemodialysis Friday (7) HTN (hypertension) Current Visit: No Status: Chronic 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 plan: Resume home Lasix, Coreg, hold lisinopril. Continue hydralazine when necessary. Nephrology following Qualifiers: Hypertension type: renovascular hypertension Qualified Code(s): I15.0 - Renovascular hypertension (8) Acute encephalopathy Current Visit: Yes Status: Resolved 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 plan: Patient had episode of acute mental status change following dialysis yesterday. Uncertain etiology. CT brain negative. Confusion now resolved. Continue supplemental oxygen. (9) COPD (chronic obstructive pulmonary disease) Current Visit: No Status: Chronic 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 plan: He uses 4 L when necessary mostly at night, stable, no acute exacerbation noted , continue home medicines and duonebs every 4 hours Qualifiers: COPD type: unspecified COPD Qualified Code(s): J44.9 - Chronic obstructive pulmonary disease, unspecified (10) DVT prophylaxis Current Visit: No Status: Acute 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 plan: Heparin Patient seen and examined, plan discussed with and agreed upon with Dr. Leung - Subjective Interval history: Patient resting comfortably in bed. He is currently requiring his baseline 4 L of oxygen via nasal cannula. Patient denies any new complaints. Patient had episode of acute mental status change following dialysis yesterday. Confusion now resolved. ID and nephrology following - Constitutional Vitals: Temp Pulse Resp BP Pulse Ox 97.6 F 79 16 150/75 97 05/11/17 03:57 05/11/17 03:57 05/11/17 03:57 05/11/17 03:57 05/11/17 03:57 General appearance: Present: disheveled, A&O X 3, no acute distress, answers questions appropriately - Head Head exam: Present: atraumatic, normocephalic - Eye Eye exam: Present: PERRL, conjuntiva pink, sclera anicteric Pupils: Present: PERRL - ENT ENT exam: Present: mucous membranes moist, normal oropharynx - Neck Neck exam general surgery: Present: supple, trachea midline. Absent: lymphadenopathy - Respiratory Respiratory exam: Present: decreased breath sounds. Absent: accessory muscle use, rales, respiratory distress, rhonchi, wheezes Additional comments: 4 L oxygen via nasal cannula - Cardiovascular Cardiovascular exam: Present: RRR, +S1, +S2. Absent: diastolic murmur, gallop, rubs, systolic murmur Additional comments: Left chest dressing C/D/I status post HD catheter removal - GI/Abdominal GI/Abdominal exam: Present: normal bowel sounds, soft, no peritoneal signs. Absent: distended, tenderness - Extremities Exam Extremities exam: Present: warm, radial pulses palpable and symetrical. Absent : calf tenderness, cyanotic, pedal edema Additional comments: no bleeding at right femoral HD catheter site - Neurological Exam Neurological exam: Present: alert, CN II-XII intact, oriented X3, no focal deficits. Absent: altered, pronater drift, facial droop, speech deficit - Psychiatric Psychiatric exam: Present: normal affect, normal mood - Skin Skin exam: Present: dry, intact, warm Additional comments: Tattoos Internal Medicine: Result - Labs CBC & Chem 7: 05/11/17 05:19 05/11/17 05:19 Labs: Short CBC 05/10/17 Range/Units 06:39 WBC 4.0 L (4.3-11.1) K/mcL Hgb 8.3 L (12.9-16.9) g/dL Hct 24.2 L (37.5-50.1) % Plt Count 89 L (140-400) K/mcL BMP 05/10/17 06:39 Sodium 126 L Potassium 3.3 L Chloride 94 L Carbon Dioxide 27 BUN 10 Creatinine 2.00 H Glucose 97 Calcium 7.7 L - ABG Interpretation ABG results: PT/INR, D-dimer PT 12.3 Seconds (9.4-12.1) H 05/09/17 12:31 - Impressions Impressions Head CT 05/10/17 14:35 IMPRESSION: No acute intracranial abnormality. There is age-appropriate cerebral atrophy with evidence of chronic periventricular small vessel ischemic disease. 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 D/ / Isaac Villatoro MD / Isaac Villatoro MD Interpreting Provider: Isaac Villatoro MD Chest X-Ray 05/11/17 04:00 IMPRESSION: The above findings are compatible with pulmonary edema, worse than on the previous chest x-ray. Clinical correlation and continued radiographic follow-up recommended as superimposed pneumonia at the right lung base cannot be excluded. D/ / Isaac Villatoro MD / Isaac Villatoro MD Interpreting Provider: Isaac Villatoro MD Consult Discharge Plan - Plan Referrals: Nallely Hanna CNP [Primary Care Provider] - 05/15/17 8:45 am (Please follow up as schedule..) <German Leung - Last Filed: 05/11/17 15:24> Date of Encounter: 05/11/17 - Constitutional Vitals: Temp Pulse Resp BP Pulse Ox 98.1 F 69 18 126/73 99 05/11/17 11:19 05/11/17 11:19 05/11/17 11:19 05/11/17 11:19 05/11/17 11:19 Internal Medicine: Result - Labs CBC & Chem 7: 05/11/17 05:19 05/11/17 05:19 Labs: Short CBC 05/11/17 Range/Units 05:19 WBC 5.3 (4.3-11.1) K/mcL Hgb 8.6 L (12.9-16.9) g/dL Hct 26.6 L (37.5-50.1) % Plt Count 100 L (140-400) K/mcL Neutrophils # 3.1 (1.6-8.9) K/mcL BMP 05/11/17 05:19 Sodium 132 L Potassium 4.4 D Chloride 98 Carbon Dioxide 30 H BUN 14 Creatinine 2.25 H Glucose 64 L Calcium 8.2 L - ABG Interpretation ABG results: PT/INR, D-dimer PT 12.3 Seconds (9.4-12.1) H 05/09/17 12:31 - Impressions Impressions Head CT 05/10/17 14:35 IMPRESSION: No acute intracranial abnormality. There is age-appropriate cerebral atrophy with evidence of chronic periventricular small vessel ischemic disease. 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 D/ / Isaac Villatoro MD / Isaac Villatoro MD Interpreting Provider: Isaac Villatoro MD Chest X-Ray 05/11/17 04:00 IMPRESSION: The above findings are compatible with pulmonary edema, worse than on the previous chest x-ray. Clinical correlation and continued radiographic follow-up recommended as superimposed pneumonia at the right lung base cannot be excluded. D/ / Isaac Villatoro MD / Isaac Villatoro MD Interpreting Provider: Isaac Villatoro MD - Attending Attestation I examined this patient and my medical decision-making was reviewed with the Resident Physician. I agree with the documented findings, disposition and treatment plan as described except to the extent set forth below.
[2017-05-11 07:20] LABS: Basophils % 0.4 %; Calcium 8.2 mg/dL (8.6-10.8); Eosinophils # 0.1 K/mcL (0.0-0.6); Eosinophils % 1.3 %; Hematocrit 26.6 % (37.5-50.1); Hemoglobin 8.6 g/dL (12.9-16.9); Immature Granulocytes % 1.5 % (0-4); Lymphocytes # 1.2 K/mcL (0.6-4.6); Lymphocytes % 22.8 %; Magnesium 1.7 mg/dL (1.6-2.6); Mean Corpuscular HGB Conc 32.3 g/dL (31.6-35.5); Mean Corpuscular Hemoglobin 29.4 pg (28.0-33.3); Mean Corpuscular Volume 90.8 fL (83.0-100.0); Mean Platelet Volume 11.1 fL (9.4-12.4); Monocytes # 0.8 K/mcL (0.0-1.3); Monocytes % 14.9 %; Neutrophils # 3.1 K/mcL (1.6-8.9); Phosphorous 2.2 mg/dL (2.3-4.7); Platelet Count 100 K/mcL (140-400); Red Blood Count 2.93 M/mcL (4.19-5.50); Red Cell Distribution Width 14.4 % (11.5-14.5); Segmented Neutrophils % 59.1 %
[2017-05-11 07:35] LABS: Potassium 4.4 mEq/L (3.5-4.5)
[2017-05-11] MEDS ORDERED: D5% in Water 1,000 ML IVC PRN (07:40)
[2017-05-11] MEDS ORDERED: Dextrose Gel 15 GM PO PRN ×2 (07:40)
[2017-05-11] MEDS ORDERED: *HR* Dextrose 50 % in Water (Syg) 50 ML SYRINGE IVP PRN (07:40)
[2017-05-11] MEDS: Ondansetron ODT 4 MG TAB.RAPDIS PO SCH ×2 (08:39→20:59)
[2017-05-11] MEDS: Gabapentin 400 MG CAPSULE PO SCH ×4 (08:39→20:59)
[2017-05-11] MEDS: BuPROPion SR (12 HR) 150 MG TABLET PO SCH ×2 (08:39→20:59)
[2017-05-11] MEDS: hydrOXYzine pamoate 25 MG CAPSULE PO SCH ×3 (08:39→20:59)
[2017-05-11] MEDS: tiZANidine 4 MG TABLET PO SCH ×3 (08:39→20:59)
[2017-05-11] MEDS: Furosemide 40 MG TABLET PO SCH ×2 (08:39→16:30)
[2017-05-11] MEDS: Isosorbide MONOnitrate (24 HR) 30 MG TAB.ER.24H PO SCH (08:39)
[2017-05-11] MEDS: Aspirin 81 MG TAB.CHEW PO SCH (08:39)
[2017-05-11] MEDS: Nicotine 21 MG PATCH.TD24 TD SCH (08:40)
[2017-05-11] MEDS: Budesonide/Formoterol 80/4.5 MDI IH SCH ×2 (09:29→20:37)
--- NOTE | 2017-05-11 09:31 | Nephrology Progress Note ---
Date of Encounter: 05/11/17 Time of Encounter: 08:35 - 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 Plan (1) ESRD (end stage renal disease) on dialysis Current Visit: Yes Status: Acute Next HD will be planned for Friday. Infection/Bacteremia. Will have to wait for negative blood cultures before a new Permcath could be placed, so he will medically require a prolonged hospitalization. (2) Bacteremia Current Visit: Yes Status: Acute See above (3) Hyponatremia Current Visit: No Status: Acute Fluid restriction. Will plan for fluid removal with HD tomorrow to help control his volume status which then helps treat the hypervolemic hyponatremia. (4) Fluid overload Current Visit: No Status: Acute Will need HD tomorrow d/t his hx of chronic edema in the setting of ESRD. Fluid resriction. Low sodium diet. Qualifiers: Hypervolemia type: unspecified Qualified Code(s): E87.70 - Fluid overload, unspecified (5) Hypokalemia Current Visit: No Status: Resolved Agree with repleting the hypokalemia. Agree with the oral KCl Subjective Principal diagnosis: ESRD, Hyponatremia, Bacteremia Interval history: Pt was s/e. He did not affirm N/V/D or uremic symptoms. He denied having any problems with HD yesterday. Objective - Vital Signs Vital signs: Vital Signs Temp Pulse Resp BP Pulse Ox 05/11/17 07:01 98.5 F 89 32 174/91 84 05/11/17 03:57 97.6 F 79 16 150/75 97 05/10/17 23:23 99.4 F 73 16 143/71 94 05/10/17 22:25 98 05/10/17 22:06 18 98 05/10/17 20:07 98.4 F 76 18 137/67 94 05/10/17 14:45 98.7 F 20 149/90 05/10/17 14:20 147/96 05/10/17 14:05 115/85 05/10/17 13:50 123/90 05/10/17 13:35 151/87 05/10/17 13:20 172/91 05/10/17 13:05 157/80 05/10/17 12:50 151/83 05/10/17 12:35 148/84 05/10/17 12:20 143/79 05/10/17 12:05 142/76 05/10/17 11:50 143/79 05/10/17 11:35 97.9 F 20 159/96 05/10/17 09:39 16 165/79 90 Intake and Output 05/10/17 05/11/17 05/11/17 23:59 07:59 15:59 Other: Weight 84.4 kg Patient Weight 05/11/17 23:59 Weight 84.4 kg - General Appearance General appearance: Present: well-developed, chronically ill, frail EENT: Present: ATNC, PERRL, mucous membranes moist Neck: Present: supple Respiratory: Present: clear Cardiology: Present: regular rate, normal S1, normal S2 Dialysis Vascular Access: Venous Catheter (Right femoral temporary HD catheter C /D/I) Gastrointestinal: Present: normoactive bowel sounds, no guarding Integumentary: Present: no rash, warm and dry Neurologic: Present: no focal deficit Musculoskeletal: Present: no erythema, no cyanosis, no clubbing Psychiatric: Present: mood/affect appropriate, cooperative - Lab 05/11/17 05:19 05/11/17 05:19 Most recent lab results Calcium 8.2 mg/dL (8.6-10.8) L 05/11/17 05:19 Phosphorus 2.2 mg/dL (2.3-4.7) L 05/11/17 05:19 Magnesium 1.7 mg/dL (1.6-2.6) 05/11/17 05:19 Consult Discharge Plan - Plan Referrals: Nallely Hanna CNP [Primary Care Provider] - 05/15/17 8:45 am (Please follow up as schedule..)
[2017-05-11] MEDS ORDERED: Vancomycin 1,000 MG in D5% in Water 250 ML IVPB ONE (11:00)
[2017-05-12] MEDS: Ipratropium/Albuterol Neb 3 ML IH SCH ×6 (04:11→23:18)
[2017-05-12] MEDS: *HR* Heparin 5,000 UNIT/ML VIAL SQ SCH ×3 (05:51→23:01)
[2017-05-12 06:00] LABS: Basophils % 0.6 %; Eosinophils # 0.1 K/mcL (0.0-0.6); Eosinophils % 1.7 %; Hemoglobin 8.7 g/dL (12.9-16.9); Immature Granulocytes % 2.1 % (0-4); Lymphocytes # 1.3 K/mcL (0.6-4.6); Lymphocytes % 25.2 %; Mean Corpuscular HGB Conc 31.1 g/dL (31.6-35.5); Mean Corpuscular Hemoglobin 29.1 pg (28.0-33.3); Mean Corpuscular Volume 93.6 fL (83.0-100.0); Mean Platelet Volume 10.5 fL (9.4-12.4); Monocytes # 0.8 K/mcL (0.0-1.3); Platelet Count 116 K/mcL (140-400); Red Blood Count 2.99 M/mcL (4.19-5.50); Red Cell Distribution Width 14.6 % (11.5-14.5); Segmented Neutrophils % 55.4 %
[2017-05-12 06:15] LABS: Magnesium 1.7 mg/dL (1.6-2.6); Phosphorous 2.2 mg/dL (2.3-4.7)
[2017-05-12 06:16] LABS: Calcium 8.3 mg/dL (8.6-10.8); Potassium 4.6 mEq/L (3.5-4.5)
--- NOTE | 2017-05-12 07:55 | Internal Med Progress Note ---
<Tayler Clarke - Last Filed: 05/12/17 11:35> Date of Encounter: 05/12/17 Time of Encounter: 07:55 - 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 plan (1) Severe sepsis Current Visit: Yes Status: Acute 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 plan: Likely secondary to MRSA bacteremia. Leukocytosis resolved Peripheral blood cultures drawn 05/07/17 are positive 2/2 sets for MRSA. Blood cultures drawn from the TDC are positive x 2 sets. Repeat blood cultures pending No endocarditis stigmata noted on exam. The patient has one major and one minor Modified Buitrago's criteria. TTE reveals Valves not well visualized. LVEF 50-55%. Diastolic dysfunction, NOS , Severe pulmonary hypertension likely present Need ROSITA to provide improved diagnostic sensitivity for evaluation of endocarditis ID following New right femoral HDC line in placed by IR 05/08 Will have to wait for negative blood cultures before a new Permcath can be placed, so he will medically require a prolonged hospitalization. Plan: -Repeat blood cultures today, plan to repeat again / -Continue IV Vanc (2) Septicemia due to methicillin resistant Staphylococcus aureus Current Visit: Yes Status: Acute 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 plan: See above Patient had a previous history of MRSA bacteremia from a previous temporary dialysis catheter treated with IV Vanc at the dialysis center. Previous TDC removed 01/28/17 with the insertion of a new line the same day. (3) Acute encephalopathy Current Visit: Yes Status: Resolved 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 plan: Patient had episode of acute mental status change following dialysis 05/10. Uncertain etiology. CT brain negative. Confusion now resolved. Continue supplemental oxygen. (4) Pneumonia Current Visit: Yes Status: Acute 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 plan: 05/11/17 Chest x-ray reveals pulmonary edema, worse than on the previous chest x- ray. Rocephin IV daily (day 5) Vancomycin (day 6) Qualifiers: Pneumonia type: due to unspecified organism Laterality: right Lung location: lower lobe of lung Qualified Code(s): J18.1 - Lobar pneumonia, unspecified organism (5) COPD (chronic obstructive pulmonary disease) Current Visit: No Status: Chronic 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 plan: He uses 4 L when necessary mostly at night, stable, no acute exacerbation noted , continue home medicines and duonebs every 4 hours Qualifiers: COPD type: unspecified COPD Qualified Code(s): J44.9 - Chronic obstructive pulmonary disease, unspecified (6) ESRD (end stage renal disease) on dialysis Current Visit: Yes Status: Acute 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 plan: Nephrology following, appreciate their recommendations HD MWF Plan: HD today with UF per nephrology (7) HTN (hypertension) Current Visit: No Status: Chronic 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 plan: Resume home Lasix, Coreg, hold lisinopril. Continue hydralazine PRN. Nephrology following Qualifiers: Hypertension type: renovascular hypertension Qualified Code(s): I15.0 - Renovascular hypertension (8) Hypokalemia Current Visit: No Status: Resolved 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 plan: Continue to monitor. Nephrology following. Continue hemodialysis MWF. (9) Hyponatremia Current Visit: No Status: Acute 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 plan: Improving. Hyperlipidemic hyponatremia. Avoid overcorrecting or excessive hydration. Nephrology following, (10) DVT prophylaxis Current Visit: Yes Status: Acute 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 plan: Heparin SQ - Subjective Interval history: Patient seen and examined. He complains of diffuse abdominal pain, denies any CP , SOB or any other complaints at this time. - Constitutional Vitals: Temp Pulse Resp BP Pulse Ox 98.1 F 78 18 183/97 96 05/12/17 06:48 05/12/17 06:48 05/12/17 06:48 05/12/17 06:48 05/12/17 06:48 General appearance: Present: disheveled, A&O X 3, no acute distress, answers questions appropriately - Head Head exam: Present: atraumatic, normocephalic - Eye Eye exam: Present: EOMI, PERRL - ENT ENT exam: Present: mucous membranes moist - Respiratory Respiratory exam: Present: CTAB - Cardiovascular Cardiovascular exam: Present: RRR - GI/Abdominal GI/Abdominal exam: Present: normal bowel sounds, soft, no peritoneal signs. Absent: distended, tenderness - Extremities Exam Extremities exam: Present: warm, radial pulses palpable and symetrical. Absent : calf tenderness, cyanotic, pedal edema Additional comments: Right temp femoral HD catheter in place: clean, dry and intact - Neurological Exam Neurological exam: Present: oriented X3, no focal deficits - Psychiatric Psychiatric exam: Present: normal affect, normal mood - Skin Skin exam: Present: dry, intact, warm. Absent: rash Internal Medicine: Result - Labs CBC & Chem 7: 05/12/17 05:15 05/12/17 05:15 Labs: Short CBC 05/12/17 Range/Units 05:15 WBC 5.3 (4.3-11.1) K/mcL Hgb 8.7 L (12.9-16.9) g/dL Hct 28.0 L (37.5-50.1) % Plt Count 116 L (140-400) K/mcL Neutrophils # 3.0 (1.6-8.9) K/mcL BMP 05/12/17 05:15 Sodium 133 L Potassium 4.6 H Chloride 100 Carbon Dioxide 27 BUN 24 D Creatinine 3.29 H Glucose 66 L Calcium 8.3 L - ABG Interpretation ABG results: PT/INR, D-dimer PT 12.3 Seconds (9.4-12.1) H 05/09/17 12:31 - Impressions Impressions Chest X-Ray 05/11/17 04:00 IMPRESSION: The above findings are compatible with pulmonary edema, worse than on the previous chest x-ray. Clinical correlation and continued radiographic follow-up recommended as superimposed pneumonia at the right lung base cannot be excluded. D/ / Isaac Villatoro MD / Isaac Villatoro MD Interpreting Provider: Isaac Villatoro MD Consult Discharge Plan - Plan Referrals: Nallely Hanna CNP [Primary Care Provider] - 05/15/17 8:45 am (Please follow up as schedule..) <German Leung - Last Filed: 05/12/17 13:16> Date of Encounter: 05/12/17 - Constitutional Vitals: Temp Pulse Resp BP Pulse Ox 98.1 F 78 18 183/97 96 05/12/17 06:48 05/12/17 06:48 05/12/17 06:48 05/12/17 06:48 05/12/17 10:03 Internal Medicine: Result - Labs CBC & Chem 7: 05/12/17 05:15 05/12/17 05:15 Labs: Short CBC 05/12/17 Range/Units 05:15 WBC 5.3 (4.3-11.1) K/mcL Hgb 8.7 L (12.9-16.9) g/dL Hct 28.0 L (37.5-50.1) % Plt Count 116 L (140-400) K/mcL Neutrophils # 3.0 (1.6-8.9) K/mcL BMP 05/12/17 05:15 Sodium 133 L Potassium 4.6 H Chloride 100 Carbon Dioxide 27 BUN 24 D Creatinine 3.29 H Glucose 66 L Calcium 8.3 L - ABG Interpretation ABG results: PT/INR, D-dimer PT 12.3 Seconds (9.4-12.1) H 05/09/17 12:31 - Attending Attestation I examined this patient and my medical decision-making was reviewed with the Resident Physician. I agree with the documented findings, disposition and treatment plan as described except to the extent set forth below. Nephrology/infectious disease recommendation appreciated.
[2017-05-12] MEDS ORDERED: 0.9 % Sodium Chloride 250 ML IVC PRN (08:00)
[2017-05-12] MEDS: Budesonide/Formoterol 80/4.5 MDI IH SCH ×2 (08:18→20:30)
--- NOTE | 2017-05-12 09:14 | Nephrology Progress Note ---
Date of Encounter: 05/12/17 Time of Encounter: 08:40 - 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 Plan (1) ESRD (end stage renal disease) on dialysis Current Visit: Yes Status: Acute HD today for clearance and ultrafiltration. 2K, 138Na, 35 bicarb. Infection/Bacteremia. Will have to wait for negative blood cultures before a new Permcath could be placed, so he will medically require a prolonged hospitalization. (2) Bacteremia Current Visit: Yes Status: Acute See above (3) Hyponatremia Current Visit: No Status: Acute Improving: Fluid restriction. Will plan for fluid removal with HD today to help control his volume status which then helps treat the hypervolemic hyponatremia. (4) Fluid overload Current Visit: No Status: Acute Improving, Will need HD today d/t his hx of chronic edema in the setting of ESRD. Fluid resriction. Low sodium diet. Qualifiers: Hypervolemia type: unspecified Qualified Code(s): E87.70 - Fluid overload, unspecified (5) Hypokalemia Current Visit: No Status: Resolved Resolved: Agree with repleting the hypokalemia. Agree with the oral KCl Subjective Principal diagnosis: ESRD, Hyponatremia, Bacteremia Interval history: Pt was s/e. He did not affirm N/V/D or uremic symptoms. He denied having any problems with HD yesterday. He rated his level of shortness of breath as "about the same" as yesterday. He was having blood cultures drawn today during my interview. Objective - Vital Signs Vital signs: Vital Signs Temp Pulse Resp BP Pulse Ox 05/12/17 06:48 98.1 F 78 18 183/97 96 05/12/17 04:11 16 98 05/12/17 03:38 98 F 80 16 174/88 96 05/11/17 23:25 97.8 F 65 16 145/77 98 05/11/17 23:05 16 177/93 97 05/11/17 20:39 16 96 05/11/17 19:53 98.2 F 83 16 177/93 96 05/11/17 17:09 98.5 F 82 18 159/79 96 05/11/17 15:56 16 126/73 94 05/11/17 11:19 98.1 F 69 18 126/73 99 05/11/17 09:29 16 174/91 90 Intake and Output 05/11/17 05/12/1705/12/17 23:59 07:59 15:59 Intake Total 100 / 100 Balance 100 / 100 Intake: IV Fluids 100 / 100 Rocephin 1,000 MG In 100 / 100 Dextrose 5% (Minibag+) 100 ML 100 ML @ 200 mls/ hr IVPB Q24H [facility] Rx#: [id number] Oral 0 / 0 Other: Weight 84.4 kg Patient Weight 05/12/17 23:59 Weight 84.4 kg - General Appearance Exam: General appearance: Present: well-developed, chronically ill, frail EENT: Present: ATNC, PERRL, mucous membranes moist Neck: Present: supple Respiratory: Present: clear Cardiology: Present: regular rate, normal S1, normal S2 Dialysis Vascular Access: Venous Catheter (Right femoral temporary HD catheter C /D/I) Gastrointestinal: Present: normoactive bowel sounds, no guarding Integumentary: Present: no rash, warm and dry Neurologic: Present: no focal deficit Musculoskeletal: Present: no erythema, no cyanosis, no clubbing Psychiatric: Present: mood/affect appropriate, cooperative - Lab 05/12/17 05:15 05/12/17 05:15 Most recent lab results Calcium 8.3 mg/dL (8.6-10.8) L 05/12/17 05:15 Phosphorus 2.2 mg/dL (2.3-4.7) L 05/12/17 05:15 Magnesium 1.7 mg/dL (1.6-2.6) 05/12/17 05:15 Consult Discharge Plan - Plan Referrals: Nallely Hanna CNP [Primary Care Provider] - 05/15/17 8:45 am (Please follow up as schedule..)
[2017-05-12] MEDS: tiZANidine 4 MG TABLET PO SCH ×3 (09:41→20:30)
[2017-05-12] MEDS: Isosorbide MONOnitrate (24 HR) 30 MG TAB.ER.24H PO SCH (09:41)
[2017-05-12] MEDS: Ondansetron ODT 4 MG TAB.RAPDIS PO SCH ×2 (09:42→20:30)
[2017-05-12] MEDS: BuPROPion SR (12 HR) 150 MG TABLET PO SCH ×2 (09:42→20:30)
[2017-05-12] MEDS: Furosemide 40 MG TABLET PO SCH ×2 (09:42→19:18)
[2017-05-12] MEDS: hydrOXYzine pamoate 25 MG CAPSULE PO SCH ×3 (09:42→20:30)
[2017-05-12] MEDS: Gabapentin 400 MG CAPSULE PO SCH ×4 (09:42→20:29)
[2017-05-12] MEDS: Aspirin 81 MG TAB.CHEW PO SCH (09:43)
[2017-05-12] MEDS: Nicotine 21 MG PATCH.TD24 TD SCH (09:43)
--- NOTE | 2017-05-12 11:45 | Infectious Disease Progress No ---
Date of Encounter: 05/12/17 Time of Encounter: 11:43 - 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 Plan (1) Severe sepsis Current Visit: Yes Status: Acute The patient had two SIRS criteria plus hypotension responsive to IV fluids. He also had lactic acidosis. Likely secondary to bacteremia. Improved. Hypotension resolved. WBC has normalized and bandemia have resolved. Lactic acid improved. Peripheral blood cultures drawn 05/07/17 are positive 2/2 sets for MRSA. Blood cultures drawn from the TDC are positive x 2 sets. Additional peripheral blood cultures x 2 sets this morning. (2) Bacteremia Current Visit: Yes Status: Acute Causative organism MRSA. Source likely the TDC. Clinically, it does not appear infected. Patient had a previous MRSA bacteremia from a previous temporary dialysis catheter treated with IV Vanc at the dialysis center. Previous TDC removed with the insertion of a new line the same day. Peripheral blood cultures drawn 05/07/17 are positive 2/2 sets for MRSA. Blood cultures drawn from the TDC are positive x 2 sets as well. Additional peripheral blood cultures drawn this morning are pending x 2 sets. No endocarditis stigmata noted on exam. The patient has one major and one minor Modified Buitrago's criteria. TTE negative for valvular vegetations. Get ROSITA. Continue Vancomycin IV. Pharmacy to dose. Goal trough approximately 15. Duration of treatment depends on the clinical picture. Monitor for drug toxicity and dose-adjust antibiotics. (3) Central line-associated bloodstream infection Current Visit: Yes Status: Acute Secondary to infected tunneled dialysis catheter. Causative organism MRSA. TDC removed 05/09/17. Qualifiers: Encounter type: initial encounter Qualified Code(s): T80.211A - Bloodstream infection due to central venous catheter, initial encounter (4) Pneumonia Current Visit: Yes Status: Acute Location: Right lower lobe. Causative organism unclear. Get sputum culture if patient is able to give an adequate specimen. S. pneumo and Legionella UAT negative. Get repeat CXR in the AM. Continue Rocephin 2 grams IV daily (day 6). Continue Vancomycin IV. Pharmacy to dose. Goal trough approximately 15. Duration of treatment depends on the clinical picture. Monitor drug toxicity and dose-adjust antibiotics. Qualifiers: Pneumonia type: due to unspecified organism Laterality: right Lung location: lower lobe of lung Qualified Code(s): J18.1 - Lobar pneumonia, unspecified organism (5) Lactic acidosis Current Visit: Yes Status: Resolved Lactic acid elevated at 8.6 on admission. Likely secondary to sepsis. Improved. Repeat lactic acid 2.6. (6) Hypokalemia Current Visit: No Status: Resolved Resolved. (7) Hyponatremia Current Visit: No Status: Acute Serum sodium 133 this morning. Likely secondary to hypervolemia. Management per the primary and nephrology teams. (8) COPD (chronic obstructive pulmonary disease) Current Visit: No Status: Chronic Qualifiers: COPD type: unspecified COPD Qualified Code(s): J44.9 - Chronic obstructive pulmonary disease, unspecified (9) ESRD (end stage renal disease) on dialysis Current Visit: No Status: Chronic Nephrology consulted and following. - Subjective Interval history: Patient seen and examined in the HD unit. Weekend notes reviewed. No acute events noted overnight. Patient resting in bed with eyes closed. He denies any fevers or chills or rigors. He denies any chest pain or shortness of breath. He does report a chronic moist cough. He denies any vomiting, diarrhea or abdominal pain. He denies nausea. He is unsure when he had a BM last. He denies any urinary complaints. He denies any oral thrush or new skin lesions. Infect Dis PN-Objective Data - Labs CBC & Chem 7: 05/12/17 05:15 05/12/17 05:15 Labs: Laboratory Results - last 24 hr 05/12/17 05/12/17 05/12/17 05:15 05:15 05:15 WBC 5.3 RBC 2.99 L Hgb 8.7 L Hct 28.0 L MCV 93.6 MCH 29.1 MCHC 31.1 L RDW 14.6 H Plt Count 116 L MPV 10.5 Immature Gran % 2.1 Seg Neutrophils % 55.4 Lymphocytes % 25.2 Monocytes % 15.0 Eosinophils % 1.7 Basophils % 0.6 Neutrophils # 3.0 Lymphocytes # 1.3 Monocytes # 0.8 Eosinophils # 0.1 Basophils # 0.0 Sodium 133 L Potassium 4.6 H Chloride 100 Carbon Dioxide 27 BUN 24 D Creatinine 3.29 H Est GFR ( Amer) 24 L Est GFR (Non-Af Amer) 20 L BUN/Creatinine Ratio 7 Glucose 66 L Calculated Osmolality 278 L Calcium 8.3 L Phosphorus 2.2 L Magnesium 1.7 Cultures: Cultures 05/08/17 00:10 Blood Culture - Final Central Venous Catheter Methicillin Resistant S.aureus 05/08/17 00:11 Blood Culture - Final Central Venous Catheter Methicillin Resistant S.aureus 05/08/17 00:25 Legionella Antigen - Final Urine,Random-Not Preferred Streptococcus pneumoniae Antigen (M - Final 05/08/17 00:25 Urine Culture - Final Urine,Clean Catch No growth. Serology 05/09/17 05/08/17 05/08/17 Range/Units 20:36 00:25 00:11 Urine Color Red A (Yellow) Urine Clarity Turbid A (Clear) Urine pH 6.0 (5.0-8.0) pH Units Ur Specific [place] 1.028 H (1.010-1.025) Urine Protein >=1000 H (Neg-Trace) mg/dL Urine Glucose (UA) 250 H (Normal) mg/dL Urine Ketones Trace H (Negative) mg/dL Urine Blood Large H (Negative) Urine Nitrite Negative (Negative) Urine Bilirubin Small H (Negative) Urine Urobilinogen Normal (Normal) mg/dL Ur Leukocyte Esterase Small H (Negative) Urine Microscopic RBC TNTC H (0-3) per hpf Urine Microscopic WBC 50-100 H (0-3) per hpf Ur Squamous Epith Cells Many H (None-Few) per lpf Urine Bacteria None Seen (None-Few) per hpf Hyaline Casts Few (None-Few) per lpf Ur Culture Indicated? YES A (NO) A. baumannii (PCR) Not Detected (Not Detect) Tashia albicans (PCR) Not Detected (Not Detect) C. glabrata (PCR) Not Detected (Not Detect) C. krusei (PCR) Not Detected (Not Detect) C. parapsilosis (PCR) Not Detected (Not Detect) C. tropicalis (PCR) Not Detected (Not Detect) Enterobacteriac sp PCR Not Detected (Not Detect) E. cloacae complex PCR Not Detected (Not Detect) Enterococcus sp PCR Not Detected (Not Detect) E. coli (PCR) Not Detected (Not Detect) H. influenzae (PCR) Not Detected (Not Detect) Hep Bs Antigen Nonreactive (Nonreactive) Hep Bs Antibody 69.32 mIU/mL Klebsiella oxytoca PCR Not Detected (Not Detect) Klebsiella pneumoniae Not Detected (Not Detect) List. monocytogenes PCR Not Detected (Not Detect) N. meningitidis (PCR) Not Detected (Not Detect) Proteus species (PCR) Not Detected (Not Detect) Serratia marcescens PCR Not Detected (Not Detect) Staphylococcus sp PCR DETECTED A (Not Detect) Staph aureus (PCR) DETECTED A (Not Detect) mecA-Methicil Res Gene DETECTED A (Not Detect) Streptococcus sp PCR Not Detected (Not Detect) Group A Strep DNA Not Detected (Not Detect) Group B Strep (PCR) Not Detected (Not Detect) Strep pneumoniae (PCR) Not Detected (Not Detect) P. aeruginosa (PCR) Not Detected (Not Detect) Britta/B-Vanco Res Genes Not Detected (Not Detect) KPC (blaKPC) Detect PCR Not Detected (Not Detect) Exam - Constitutional Vitals: Temp Pulse Resp BP Pulse Ox 98.1 F 78 18 183/97 96 05/12/17 06:48 05/12/17 06:48 05/12/17 06:48 05/12/17 06:48 05/12/17 10:03 General appearance: average body habitus, cooperative, no acute distress - Head Head exam: Present: atraumatic, normal inspection, normocephalic - Eye Eye exam: Present: EOMI, normal appearance, PERRL Pupils: Present: normal accommodation - ENT ENT exam: Present: mucous membranes moist - Neck Neck exam: Present: normal inspection - Respiratory Respiratory exam: Present: CTAB. Absent: rales, respiratory distress, rhonchi, wheezes - Cardiovascular Cardiovascular exam: Present: RRR, +S1, +S2 - GI/Abdominal GI/Abdominal exam: Present: distended, normal bowel sounds, soft. Absent: tenderness - Extremities Exam Extremities exam: Absent: joint swelling, pedal edema, tenderness Additional comments: Venous stasis dermatitis noted to the BLE. - Neurological Exam Neurological exam: Present: alert, oriented X3, no focal deficits - Psychiatric Psychiatric exam: Present: normal affect, normal mood - Skin Skin exam: Present: dry, intact, normal color, warm Additional comments: No endocarditis stigmata noted on exam. - Additional findings Additional findings: Temporary dialysis catheter noted to the right groin with dressing C/D/I. No erythema, warmth, or drainage noted. Consult Discharge Plan - Plan Referrals: Easterday,Nallely L, CANAL SUPERINTENDENT [Primary Care Provider] - 05/15/17 8:45 am (Please follow up as schedule..) - Attending Attestation I examined this patient and my medical decision-making was reviewed with the Resident Physician. I agree with the documented findings, disposition and treatment plan as described except to the extent set forth below.
[2017-05-12] MEDS: *HR* HYDROcodone/Acet 5/325 mg TABLET PO PRN ×2 (12:32→19:18)
[2017-05-12] MEDS ORDERED: 0.9 % Sodium Chloride 2,000 ML ONE (14:46)
[2017-05-12] MEDS ORDERED: Vancomycin 750 MG in D5% in Water 250 ML IVPB ONE (16:00)
[2017-05-13] MEDS: Ipratropium/Albuterol Neb 3 ML IH SCH ×6 (04:47→23:42)
[2017-05-13] MEDS: *HR* Heparin 5,000 UNIT/ML VIAL SQ SCH ×3 (05:21→21:13)
[2017-05-13] MEDS: *HR* HYDROcodone/Acet 5/325 mg TABLET PO PRN ×2 (05:25→17:14)
[2017-05-13 07:30] LABS: Basophils % 0.5 %; Eosinophils # 0.2 K/mcL (0.0-0.6); Eosinophils % 2.7 %; Hematocrit 25.5 % (37.5-50.1); Hemoglobin 8.1 g/dL (12.9-16.9); Lymphocytes # 1.5 K/mcL (0.6-4.6); Lymphocytes % 27.2 %; Mean Corpuscular HGB Conc 31.8 g/dL (31.6-35.5); Mean Corpuscular Hemoglobin 29.5 pg (28.0-33.3); Mean Corpuscular Volume 92.7 fL (83.0-100.0); Mean Platelet Volume 10.6 fL (9.4-12.4); Monocytes # 0.9 K/mcL (0.0-1.3); Neutrophils # 2.8 K/mcL (1.6-8.9); Platelet Count 115 K/mcL (140-400); Red Blood Count 2.75 M/mcL (4.19-5.50); Red Cell Distribution Width 14.5 % (11.5-14.5); Segmented Neutrophils % 51.6 %
--- NOTE | 2017-05-13 08:19 | Nephrology Progress Note ---
Date of Encounter: 05/13/17 Time of Encounter: 08: - 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 Plan (1) ESRD (end stage renal disease) on dialysis Current Visit: Yes Status: Acute Plan for HD tomorrow Once blood cultures return negative will have new permacath placed. Continue renal diet Avoid nephrotoxins if possible (2) COPD (chronic obstructive pulmonary disease) with chronic bronchitis Current Visit: Yes Status: Acute per primary team (3) Sepsis associated hypotension Current Visit: Yes Status: Acute per infectious disease team (4) Hyponatremia Current Visit: No Status: Acute Na+ stable at 130 Subjective Principal diagnosis: ESRD, Hyponatremia, Bacteremia Interval history: Patient seen and examined. Sitting up in bed eating breakfast and watching TV. States he is feeling good today. Objective - Vital Signs Vital signs: Vital Signs Temp Pulse Resp BP Pulse Ox 05/13/17 07:34 98.1 F 78 18 152/76 97 05/13/17 04:48 16 95 05/13/17 04:47 98.5 F 73 16 149/73 95 05/12/17 23:37 97.7 F 61 16 96/62 92 05/12/17 23:18 16 98 05/12/17 20:30 16 100 05/12/17 20:04 97.9 F 72 16 119/70 98 05/12/17 16:54 97.4 F L 63 24 123/66 100 05/12/17 16:17 20 96 05/12/17 15:30 97.8 F 19 114/66 05/12/17 15:10 94/60 05/12/17 14:55 98/68 05/12/17 14:40 95/52 05/12/17 14:25 93/52 05/12/17 14:10 96/51 05/12/17 13:55 93/55 05/12/17 13:40 96/55 05/12/17 13:25 101/61 05/12/17 13:10 106/70 05/12/17 12:55 123/60 05/12/17 12:40 129/64 05/12/17 12:25 110/62 05/12/17 12:10 125/71 05/12/17 11:55 121/68 05/12/17 11:40 98.2 F 18 124/68 05/12/17 10:03 96 Intake and Output 05/12/17 05/13/17 05/13/17 23:59 07:59 15:59 Intake Total 250 / 250 Output Total 275 / 275 Balance -25 / -25 Intake: IV Fluids 250 / 250 Vancocin 750 MG In 250 / 250 Dextrose 5% 250 ML @ 250 mls/hr IVPB ONCE ONE Rx#: [id number] Oral 0 / 0 Output: Urine 275 / 275 Other: Weight 84.8 kg Patient Weight 05/13/17 23:59 Weight 84.8 kg - General Appearance General appearance: Present: well-developed, well-nourished EENT: Present: ATNC, mucous membranes moist, hearing intact, vision intact Neck: Present: supple Respiratory: Present: clear Cardiology: Present: no edema, normal S1, normal S2 Dialysis Vascular Access: Venous Catheter Gastrointestinal: Present: no tenderness, no guarding Integumentary: Present: warm and dry Neurologic: Present: alert and oriented x3 Psychiatric: Present: mood/affect appropriate, cooperative - Lab 05/13/17 07:10 05/13/17 07:10 Most recent lab results Calcium 8.0 mg/dL (8.6-10.8) L 05/13/17 07:10 Phosphorus 2.2 mg/dL (2.3-4.7) L 05/12/17 05:15 Magnesium 1.7 mg/dL (1.6-2.6) 05/12/17 05:15 Consult Discharge Plan - Plan Referrals: Nallely Hanna CNP [Primary Care Provider] - 05/15/17 8:45 am (Please follow up as schedule..)
[2017-05-13] MEDS: BuPROPion SR (12 HR) 150 MG TABLET PO SCH ×2 (09:27→21:12)
[2017-05-13] MEDS: hydrOXYzine pamoate 25 MG CAPSULE PO SCH ×3 (09:27→21:12)
[2017-05-13] MEDS: Ondansetron ODT 4 MG TAB.RAPDIS PO SCH ×2 (09:27→21:12)
[2017-05-13] MEDS: Aspirin 81 MG TAB.CHEW PO SCH (09:27)
[2017-05-13] MEDS: Gabapentin 400 MG CAPSULE PO SCH ×4 (09:27→21:11)
[2017-05-13] MEDS: Furosemide 40 MG TABLET PO SCH ×2 (09:27→16:38)
[2017-05-13] MEDS: Nicotine 21 MG PATCH.TD24 TD SCH (09:28)
[2017-05-13] MEDS: Isosorbide MONOnitrate (24 HR) 30 MG TAB.ER.24H PO SCH (09:28)
[2017-05-13] MEDS: tiZANidine 4 MG TABLET PO SCH ×3 (09:28→21:12)
--- NOTE | 2017-05-13 09:32 | Internal Med Progress Note ---
Date of Encounter: 05/13/17 Time of Encounter: 09:41 - 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 plan (1) Severe sepsis Current Visit: Yes Status: Acute 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 plan: Related to MRSA bacteremia in the setting of infected dialysis catheter. Blood cultures remain persistently positive, repeat blood cultures drawn yesterday are pending. Given the persistent bacteremia with MRSA is concern for infective endocarditis. Patient has one major and one minor criteria during him possible endocarditis. Continue IV vancomycin, ROSITA tomorrow. Patient negative blood cultures before a more permanent dialysis access can be placed. Nephrology and infectious disease following. (2) Septicemia due to methicillin resistant Staphylococcus aureus Current Visit: Yes Status: Acute 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 plan: This the patient's third episode in the last 6 months. Vancomycin day 7 as discussed above. (3) Central line-associated bloodstream infection Current Visit: Yes Status: Acute Qualifiers: Encounter type: initial encounter Qualified Code(s): T80.211A - Bloodstream infection due to central venous catheter, initial encounter (4) Pneumonia Current Visit: Yes Status: Acute 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 plan: The patient had bilateral opacification chest x-ray, most likely related to pulmonary edema however underlying pneumonia could not be excluded. I feel that pneumonia is less likely in this patient however will continue Rocephin for a total 7 days. Today is day 6. Qualifiers: Pneumonia type: due to unspecified organism Laterality: right Lung location: lower lobe of lung Qualified Code(s): J18.1 - Lobar pneumonia, unspecified organism (5) Acute encephalopathy Current Visit: Yes Status: Resolved 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 plan: Likely related to severe sepsis on presentation possibly exacerbated by hypotension postdialysis. Resolved at this time. We will continue to monitor. (6) ESRD (end stage renal disease) Current Visit: No Status: Acute 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 plan: Continue with Friday, Friday, Friday dialysis through temporary HD line placed at this hospitalization. Patient will need more permanent access for hemodialysis once bloodstream infection clears. Nephrology following. (7) Hypertension Current Visit: No Status: Acute 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 plan: Patient was initially hypotensive on presentation, likely related to sepsis. Blood pressures responded well. Continue home blood pressure medications. We will continue monitor. Qualifiers: Hypertension type: essential hypertension Qualified Code(s): I10 - Essential (primary) hypertension - Subjective Interval history: Patient seen and examined at bedside. Patient has no complaints at this time. He states he feels back to normal. Denies fever/chills. Patient states he is eating and drinking well. - Constitutional Vitals: Temp Pulse Resp BP Pulse Ox 98.1 F 78 18 152/76 97 05/13/17 07:34 05/13/17 07:34 05/13/17 07:34 05/13/17 07:34 05/13/17 07:34 General appearance: Present: disheveled, A&O X 3, no acute distress, answers questions appropriately - Respiratory Respiratory exam: Present: rales (trace, bibasilar). Absent: respiratory distress, rhonchi, wheezes, tachypnea - Cardiovascular Cardiovascular exam: Present: RRR. Absent: diastolic murmur, gallop, rubs, systolic murmur - GI/Abdominal GI/Abdominal exam: Present: normal bowel sounds, soft. Absent: distended, tenderness Internal Medicine: Result - Labs CBC & Chem 7: 05/13/17 07:10 05/13/17 07:10 Labs: Short CBC 05/13/17 Range/Units 07:10 WBC 5.5 (4.3-11.1) K/mcL Hgb 8.1 L (12.9-16.9) g/dL Hct 25.5 L (37.5-50.1) % Plt Count 115 L (140-400) K/mcL Neutrophils # 2.8 (1.6-8.9) K/mcL BMP 05/13/17 07:10 Sodium 130 L Potassium 4.0 Chloride 96 L Carbon Dioxide 27 BUN 21 Creatinine 3.07 H Glucose 93 Calcium 8.0 L - ABG Interpretation ABG results: PT/INR, D-dimer PT 12.3 Seconds (9.4-12.1) H 05/09/17 12:31 Consult Discharge Plan - Plan Referrals: Nallely Hanna CNP [Primary Care Provider] - 05/15/17 8:45 am (Please follow up as schedule..)
[2017-05-13] MEDS: Budesonide/Formoterol 80/4.5 MDI IH SCH ×2 (11:24→20:04)
--- NOTE | 2017-05-13 12:45 | Infectious Disease Progress No ---
Date of Encounter: 05/13/17 Time of Encounter: 12:40 - 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 Plan (1) Severe sepsis Current Visit: Yes Status: Acute The patient had two SIRS criteria plus hypotension responsive to IV fluids. He also had lactic acidosis. Likely secondary to bacteremia. Improved. The patient had some mild hypotension yesterday afternoon, but this is likely related to his dialysis. WBC has normalized and bandemia have resolved. Lactic acid improved. Peripheral blood cultures drawn 05/07/17 are positive 2/2 sets for MRSA. Blood cultures drawn from the TDC are positive x 2 sets. Additional peripheral blood cultures x 2 sets drawn 05/12/17 are pending. (2) Bacteremia Current Visit: Yes Status: Acute Causative organism MRSA. Source likely the TDC. Clinically, it did not appear infected. Patient had a previous MRSA bacteremia from a previous temporary dialysis catheter treated with IV Vanc at the dialysis center. Previous TDC removed with the insertion of a new line the same day. Peripheral blood cultures drawn 05/07/17 are positive 2/2 sets for MRSA. Blood cultures drawn from the TDC are positive x 2 sets as well. Additional peripheral blood cultures drawn 05/12/17 are pending x 2 sets. No endocarditis stigmata noted on exam. The patient has one major and one minor Modified Buitrago's criteria. TTE negative for valvular vegetations. Get ROSITA. Continue Vancomycin IV. Pharmacy to dose. Goal trough approximately 15. Last vanc trough 14.0. Duration of treatment depends on the clinical picture. Monitor for drug toxicity and dose-adjust antibiotics. (3) Central line-associated bloodstream infection Current Visit: Yes Status: Acute Secondary to infected tunneled dialysis catheter. Causative organism MRSA. TDC removed 05/09/17. Qualifiers: Encounter type: initial encounter Qualified Code(s): T80.211A - Bloodstream infection due to central venous catheter, initial encounter (4) Pneumonia Current Visit: Yes Status: Acute Location: Right lower lobe. Causative organism unclear. Get sputum culture if patient is able to give an adequate specimen. S. pneumo and Legionella UAT negative. Discontinue Rocephin after today's dose (total of 7 days). Continue Vancomycin IV. Pharmacy to dose. Goal trough approximately 15. Duration of treatment depends on the clinical picture. Monitor drug toxicity and dose-adjust antibiotics. Qualifiers: Pneumonia type: due to unspecified organism Laterality: right Lung location: lower lobe of lung Qualified Code(s): J18.1 - Lobar pneumonia, unspecified organism (5) Lactic acidosis Current Visit: Yes Status: Resolved Lactic acid elevated at 8.6 on admission. Likely secondary to sepsis. Improved. Repeat lactic acid 2.6. (6) Hypokalemia Current Visit: No Status: Resolved Resolved. (7) Hyponatremia Current Visit: No Status: Acute Serum sodium 130 this morning. Likely secondary to hypervolemia. Management per the primary and nephrology teams. (8) COPD (chronic obstructive pulmonary disease) Current Visit: No Status: Chronic Qualifiers: COPD type: unspecified COPD Qualified Code(s): J44.9 - Chronic obstructive pulmonary disease, unspecified (9) ESRD (end stage renal disease) on dialysis Current Visit: No Status: Chronic Nephrology consulted and following. - Subjective Interval history: Patient seen and examined. No acute events noted overnight. Patient sitting up in bed. States that overall he feels okay. He denies any fevers or chills or rigors. He denies any chest pain or shortness of breath. He does report a chronic moist cough. He denies any vomiting, diarrhea or abdominal pain. He denies nausea. He reports a BM a few days ago. He denies any urinary complaints. He denies any oral thrush or new skin lesions. He complains of chronic back pain. Infect Dis PN-Objective Data - Labs CBC & Chem 7: 05/13/17 07:10 05/13/17 07:10 Labs: Laboratory Results - last 24 hr 05/13/17 05/13/17 07:10 07:10 WBC 5.5 RBC 2.75 L Hgb 8.1 L Hct 25.5 L MCV 92.7 MCH 29.5 MCHC 31.8 RDW 14.5 Plt Count 115 L MPV 10.6 Immature Gran % 2.0 Seg Neutrophils % 51.6 Lymphocytes % 27.2 Monocytes % 16.0 Eosinophils % 2.7 Basophils % 0.5 Neutrophils # 2.8 Lymphocytes # 1.5 Monocytes # 0.9 Eosinophils # 0.2 Basophils # 0.0 Sodium 130 L Potassium 4.0 Chloride 96 L Carbon Dioxide 27 BUN 21 Creatinine 3.07 H Est GFR ( Amer) 26 L Est GFR (Non-Af Amer) 22 L BUN/Creatinine Ratio 7 Glucose 93 Calculated Osmolality 273 L Calcium 8.0 L Cultures: Cultures 05/08/17 00:10 Blood Culture - Final Central Venous Catheter Methicillin Resistant S.aureus 05/08/17 00:11 Blood Culture - Final Central Venous Catheter Methicillin Resistant S.aureus 05/08/17 00:25 Legionella Antigen - Final Urine,Random-Not Preferred Streptococcus pneumoniae Antigen (M - Final 05/08/17 00:25 Urine Culture - Final Urine,Clean Catch No growth. Serology 05/09/17 05/08/17 05/08/17 Range/Units 20:36 00:25 00:11 Urine Color Red A (Yellow) Urine Clarity Turbid A (Clear) Urine pH 6.0 (5.0-8.0) pH Units Ur Specific [place] 1.028 H (1.010-1.025) Urine Protein >=1000 H (Neg-Trace) mg/dL Urine Glucose (UA) 250 H (Normal) mg/dL Urine Ketones Trace H (Negative) mg/dL Urine Blood Large H (Negative) Urine Nitrite Negative (Negative) Urine Bilirubin Small H (Negative) Urine Urobilinogen Normal (Normal) mg/dL Ur Leukocyte Esterase Small H (Negative) Urine Microscopic RBC TNTC H (0-3) per hpf Urine Microscopic WBC 50-100 H (0-3) per hpf Ur Squamous Epith Cells Many H (None-Few) per lpf Urine Bacteria None Seen (None-Few) per hpf Hyaline Casts Few (None-Few) per lpf Ur Culture Indicated? YES A (NO) A. baumannii (PCR) Not Detected (Not Detect) Tashia albicans (PCR) Not Detected (Not Detect) C. glabrata (PCR) Not Detected (Not Detect) C. krusei (PCR) Not Detected (Not Detect) C. parapsilosis (PCR) Not Detected (Not Detect) C. tropicalis (PCR) Not Detected (Not Detect) Enterobacteriac sp PCR Not Detected (Not Detect) E. cloacae complex PCR Not Detected (Not Detect) Enterococcus sp PCR Not Detected (Not Detect) E. coli (PCR) Not Detected (Not Detect) H. influenzae (PCR) Not Detected (Not Detect) Hep Bs Antigen Nonreactive (Nonreactive) Hep Bs Antibody 69.32 mIU/mL Klebsiella oxytoca PCR Not Detected (Not Detect) Klebsiella pneumoniae Not Detected (Not Detect) List. monocytogenes PCR Not Detected (Not Detect) N. meningitidis (PCR) Not Detected (Not Detect) Proteus species (PCR) Not Detected (Not Detect) Serratia marcescens PCR Not Detected (Not Detect) Staphylococcus sp PCR DETECTED A (Not Detect) Staph aureus (PCR) DETECTED A (Not Detect) mecA-Methicil Res Gene DETECTED A (Not Detect) Streptococcus sp PCR Not Detected (Not Detect) Group A Strep DNA Not Detected (Not Detect) Group B Strep (PCR) Not Detected (Not Detect) Strep pneumoniae (PCR) Not Detected (Not Detect) P. aeruginosa (PCR) Not Detected (Not Detect) Britta/B-Vanco Res Genes Not Detected (Not Detect) KPC (blaKPC) Detect PCR Not Detected (Not Detect) Exam - Constitutional Vitals: Temp Pulse Resp BP Pulse Ox 97.8 F 59 17 101/67 98 05/13/17 11:23 05/13/17 11:23 05/13/17 11:23 05/13/17 11:23 05/13/17 11:23 General appearance: cooperative, no acute distress, obese - Head Head exam: Present: atraumatic, normal inspection, normocephalic - Eye Eye exam: Present: EOMI, normal appearance, PERRL Pupils: Present: normal accommodation Additional comments: No endocarditis stigmata noted. - ENT ENT exam: Present: mucous membranes moist - Neck Neck exam: Present: normal inspection - Respiratory Respiratory exam: Present: CTAB. Absent: rales, respiratory distress, rhonchi, wheezes - Cardiovascular Cardiovascular exam: Present: RRR, +S1, +S2 - GI/Abdominal GI/Abdominal exam: Present: distended, normal bowel sounds, soft, tenderness - Extremities Exam Extremities exam: Absent: joint swelling, normal inspection (BLE venous stasis dermatitis), tenderness - Neurological Exam Neurological exam: Present: alert, oriented X3, no focal deficits - Psychiatric Psychiatric exam: Present: normal affect, normal mood - Skin Skin exam: Present: dry, intact, normal color, warm Additional comments: No endocarditis stigmata noted. - Additional findings Additional findings: Temporary dialysis catheter noted to the right groin with dressing C/D/I. Consult Discharge Plan - Plan Referrals: Easterday,Nallely L, [facility] [Primary Care Provider] - 05/15/17 8:45 am (Please follow up as schedule..) - Attending Attestation I examined this patient and my medical decision-making was reviewed with the Resident Physician. I agree with the documented findings, disposition and treatment plan as described except to the extent set forth below.
[2017-05-13 17:16] LABS: Acinetobacter baumannii by PCR Not Detected (Not Detect); Candida albicans by PCR Not Detected (Not Detect); Candida glabrata by PCR Not Detected (Not Detect); Candida krusei by PCR Not Detected (Not Detect); Candida parapsilosis by PCR Not Detected (Not Detect); Candida tropicalis by PCR Not Detected (Not Detect); Enterococcus by PCR Not Detected (Not Detect); Escherichia coli by PCR Not Detected (Not Detect); Klebsiella oxytoca by PCR Not Detected (Not Detect); Klebsiella pneumoniae by PCR Not Detected (Not Detect); Pseudomonas aeruginosa by PCR Not Detected (Not Detect); Serratia marcescens by PCR Not Detected (Not Detect); Staphylococcus aureus by PCR ***DETECTED*** (Not Detect); Streptococcus agalactiae(B)PCR Not Detected (Not Detect); Streptococcus by PCR Not Detected (Not Detect); Streptococcus pneumoniae PCR Not Detected (Not Detect); Streptococcus pyogenes (A) PCR Not Detected (Not Detect); mecA Methicillin-Resist Gene ***DETECTED*** (Not Detect)
[2017-05-13] MEDS: Sennosides/Docusate Sodium TABLET PO SCH (21:12)
[2017-05-14] MEDS: Ipratropium/Albuterol Neb 3 ML IH SCH ×6 (03:39→23:57)
[2017-05-14 05:07] LABS: Basophils % 0.4 %; Eosinophils # 0.1 K/mcL (0.0-0.6); Eosinophils % 2.5 %; Hematocrit 25.2 % (37.5-50.1); Hemoglobin 8.1 g/dL (12.9-16.9); Immature Granulocytes % 2.9 % (0-4); Lymphocytes # 1.3 K/mcL (0.6-4.6); Lymphocytes % 24.4 %; Mean Corpuscular HGB Conc 32.1 g/dL (31.6-35.5); Mean Corpuscular Hemoglobin 29.6 pg (28.0-33.3); Mean Platelet Volume 10.1 fL (9.4-12.4); Monocytes # 0.5 K/mcL (0.0-1.3); Monocytes % 10.1 %; Neutrophils # 3.1 K/mcL (1.6-8.9); Platelet Count 128 K/mcL (140-400); Red Blood Count 2.74 M/mcL (4.19-5.50); Red Cell Distribution Width 14.4 % (11.5-14.5); Segmented Neutrophils % 59.7 %
[2017-05-14 05:20] LABS: Calcium 8.3 mg/dL (8.6-10.8); Magnesium 1.7 mg/dL (1.6-2.6); Potassium 4.3 mEq/L (3.5-4.5)
[2017-05-14] MEDS: *HR* Heparin 5,000 UNIT/ML VIAL SQ SCH ×3 (06:00→22:27)
[2017-05-14] MEDS: Budesonide/Formoterol 80/4.5 MDI IH SCH ×2 (07:53→20:05)
[2017-05-14] MEDS ORDERED: 0.9 % Sodium Chloride 250 ML IVC PRN (08:14)
[2017-05-14] MEDS: Isosorbide MONOnitrate (24 HR) 30 MG TAB.ER.24H PO SCH (09:06)
[2017-05-14] MEDS: Furosemide 40 MG TABLET PO SCH ×2 (09:07→22:25)
[2017-05-14] MEDS: Nicotine 21 MG PATCH.TD24 TD SCH (09:11)
[2017-05-14] MEDS: Sennosides/Docusate Sodium TABLET PO SCH ×2 (09:12→22:26)
[2017-05-14] MEDS: tiZANidine 4 MG TABLET PO SCH ×3 (09:12→22:25)
[2017-05-14] MEDS: Gabapentin 400 MG CAPSULE PO SCH ×5 (09:12→22:27)
[2017-05-14] MEDS: Aspirin 81 MG TAB.CHEW PO SCH (09:12)
[2017-05-14] MEDS: hydrOXYzine pamoate 25 MG CAPSULE PO SCH ×3 (09:12→22:25)
[2017-05-14] MEDS: Ondansetron ODT 4 MG TAB.RAPDIS PO SCH ×2 (09:12→22:26)
[2017-05-14] MEDS: BuPROPion SR (12 HR) 150 MG TABLET PO SCH ×2 (09:12→22:25)
--- NOTE | 2017-05-14 09:28 | Nephrology Progress Note ---
Date of Encounter: 05/14/17 Time of Encounter: 09:10 - 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 Plan (1) ESRD (end stage renal disease) on dialysis Current Visit: Yes Status: Acute HD today for clearance and ultrafiltration. 2K, 138Na, 35 bicarb. Logistically, will hold HD until after the ROSITA. Infection/Bacteremia. Will have to wait for negative blood cultures before a new Permcath could be placed, so he will medically require a prolonged hospitalization. Appreciate the hospitalists and ID (2) Bacteremia Current Visit: Yes Status: Acute See above (3) Hyponatremia Current Visit: No Status: Acute Improving: Fluid restriction. Will plan for fluid removal with HD today to help control his volume status which then helps treat the hypervolemic hyponatremia. (4) Hypokalemia Current Visit: No Status: Resolved Resolved: Agree with repleting the hypokalemia. Agree with the oral KCl Subjective Principal diagnosis: ESRD, Hyponatremia, Bacteremia Interval history: Pt was s/e. He did not affirm N/V/D or uremic symptoms. He is scheduled for a TTE this AM. He did not affirm new major complaint. Objective - Vital Signs Vital signs: Vital Signs Temp Pulse Resp BP Pulse Ox 05/14/17 07:10 98.3 F 79 19 155/76 97 05/14/17 04:10 97.7 F 80 16 146/70 98 05/13/17 23:44 12 96 05/13/17 23:34 97.7 F 58 16 117/62 97 05/13/17 20:05 12 98 05/13/17 19:31 98.1 F 52 16 94/52 94 05/13/17 17:14 96 05/13/17 16:16 16 96 05/13/17 15:55 98.2 F 72 14 141/79 97 05/13/17 11:23 97.8 F 59 17 101/67 98 Intake and Output 05/13/17 05/14/17 05/14/17 23:59 07:59 15:59 Intake Total 120 / 120 0 / 0 Balance 120 / 120 0 / 0 Intake: Oral 120 / 120 0 / 0 Other: Meal Dinner Breakfast Percent of Meal Consumed 20% 0% Weight 82.327 kg - General Appearance Exam: General appearance: Present: well-developed, well-nourished, appears older than listed age EENT: Present: ATNC, mucous membranes moist, hearing intact, vision intact Neck: Present: supple Respiratory: Present: clear Cardiology: Present: no edema, normal S1, normal S2 Dialysis Vascular Access: Venous Catheter, right femoral CVC that appeared clean , dry and intact Gastrointestinal: Present: no tenderness mostly, no guarding Integumentary: Present: warm and dry Neurologic: Present: alert and oriented x3 Psychiatric: Present: mood/affect appropriate, cooperative - Lab 05/14/17 04:52 05/14/17 04:52 Most recent lab results Calcium 8.3 mg/dL (8.6-10.8) L 05/14/17 04:52 Phosphorus 2.2 mg/dL (2.3-4.7) L 05/12/17 05:15 Magnesium 1.7 mg/dL (1.6-2.6) 05/14/17 04:52 Consult Discharge Plan - Plan Referrals: Nallely Hanna CNP [Primary Care Provider] - 05/15/17 8:45 am (Please follow up as schedule..)
[2017-05-14] MEDS ORDERED: 0.9 % Sodium Chloride 500 ML IVC ONE (10:09)
[2017-05-14] MEDS ORDERED: Tetracaine/Benzocaine/Butamben 200MG/SPRAY (100SPY/BOT) MM ONE (10:09)
[2017-05-14] MEDS: *HR* FentaNYL (PF) 100 MCG/2 ML VIAL IVP PRN ×2 (11:05→11:15)
[2017-05-14] MEDS: *HR* Midazolam HCl 5 MG/5 ML VIAL IVP PRN ×3 (11:05→11:15)
--- NOTE | 2017-05-14 13:36 | Infectious Disease Progress No ---
Date of Encounter: 05/14/17 Time of Encounter: 13:34 - 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 Plan (1) Severe sepsis Current Visit: Yes Status: Acute The patient had two SIRS criteria plus hypotension responsive to IV fluids. He also had lactic acidosis. Likely secondary to bacteremia. Improved. Hypotension resolved. WBC has normalized and bandemia have resolved. Lactic acid improved. Peripheral blood cultures drawn 05/07/17 are positive 2/2 sets for MRSA. Blood cultures drawn from the TDC are positive x 2 sets. Additional peripheral blood cultures x 2 sets drawn 05/12/17 are positive 1/2 sets. Repeat blood cultures x 2 sets now. (2) Bacteremia Current Visit: Yes Status: Acute Causative organism MRSA. Source likely the TDC. Clinically, it did not appear infected. Additionally, the patient continues to be bacteremic despite therapeutic vanc levels and removal of the source of infection. Complicated due to persistent bacteremia. Patient had a previous MRSA bacteremia from a previous temporary dialysis catheter treated with IV Vanc at the dialysis center. Previous TDC removed with the insertion of a new line the same day. Peripheral blood cultures drawn 05/07/17 are positive 2/2 sets for MRSA. Blood cultures drawn from the TDC are positive x 2 sets as well. Additional peripheral blood cultures drawn 05/12/17 are positive 1/2 sets. No endocarditis stigmata noted on exam. The patient has one major and one minor Modified Buitrago's criteria. TTE negative for valvular vegetations. ROSITA negative. Get additional blood cultures x 2 sets now. Continue Vancomycin IV. Pharmacy to dose. Goal trough approximately 15. Random vanc 24.3 this morning. Concerned about persistent bacteremia and possibility of failure due to the JENNA being 2. We will continue Vancomycin for now and if repeat blood culture continue to come back positive, will consider switching to IV Daptomycin. Duration of treatment depends on the clinical picture, but we may need to continue treatment for four weeks from the first set of negative blood cultures. Monitor for drug toxicity and dose-adjust antibiotics. Get weekly CBC and Vanc troughs for the duration of treatment. Follow up with ID 05/19/17 at 0800. (3) Central line-associated bloodstream infection Current Visit: Yes Status: Acute Secondary to infected tunneled dialysis catheter. Causative organism MRSA. TDC removed 05/09/17. Qualifiers: Encounter type: initial encounter Qualified Code(s): T80.211A - Bloodstream infection due to central venous catheter, initial encounter (4) Pneumonia Current Visit: Yes Status: Acute Location: Right lower lobe. Causative organism unclear. Get sputum culture if patient is able to give an adequate specimen. S. pneumo and Legionella UAT negative. Discontinue Rocephin after today's dose (total of 8 days). Continue Vancomycin IV. Pharmacy to dose. Goal trough approximately 15. Duration of treatment depends on the clinical picture. Monitor drug toxicity and dose-adjust antibiotics. Qualifiers: Pneumonia type: due to unspecified organism Laterality: right Lung location: lower lobe of lung Qualified Code(s): J18.1 - Lobar pneumonia, unspecified organism (5) Lactic acidosis Current Visit: Yes Status: Resolved Lactic acid elevated at 8.6 on admission. Likely secondary to sepsis. Improved. Repeat lactic acid 2.6. (6) Hyponatremia Current Visit: No Status: Acute Serum sodium 130 this morning. Likely secondary to hypervolemia. Management per the primary and nephrology teams. (7) COPD (chronic obstructive pulmonary disease) Current Visit: No Status: Chronic Qualifiers: COPD type: unspecified COPD Qualified Code(s): J44.9 - Chronic obstructive pulmonary disease, unspecified (8) ESRD (end stage renal disease) on dialysis Current Visit: No Status: Chronic Nephrology consulted and following. - Subjective Interval history: Patient seen and examined. No acute events noted overnight. Status post ROSITA this morning. Very drowsy, but awakens with verbal stimuli. Difficult to keep awake during exam, but denies pain. No other ROS information obtainable at this time. Infect Dis PN-Objective Data - Labs CBC & Chem 7: 05/15/17 04:00 05/15/17 04:00 Labs: Laboratory Results - last 24 hr 05/12/17 05/14/17 05/14/17 08:38 04:52 04:52 WBC 5.3 RBC 2.74 L Hgb 8.1 L Hct 25.2 L MCV 92.0 MCH 29.6 MCHC 32.1 RDW 14.4 Plt Count 128 L MPV 10.1 Immature Gran % 2.9 Seg Neutrophils % 59.7 Lymphocytes % 24.4 Monocytes % 10.1 Eosinophils % 2.5 Basophils % 0.4 Neutrophils # 3.1 Lymphocytes # 1.3 Monocytes # 0.5 Eosinophils # 0.1 Basophils # 0.0 Sodium Potassium Chloride Carbon Dioxide BUN Creatinine Est GFR ( Amer) Est GFR (Non-Af Amer) BUN/Creatinine Ratio Glucose Calculated Osmolality Calcium Magnesium Random Vancomycin 24.3 A. baumannii (PCR) Not Detected Tashia albicans (PCR) Not Detected C. glabrata (PCR) Not Detected C. krusei (PCR) Not Detected C. parapsilosis (PCR) Not Detected C. tropicalis (PCR) Not Detected Enterobacteriac sp PCR Not Detected E. cloacae complex PCR Not Detected Enterococcus sp PCR Not Detected E. coli (PCR) Not Detected H. influenzae (PCR) Not Detected Klebsiella oxytoca PCR Not Detected Klebsiella pneumoniae Not Detected List. monocytogenes PCR Not Detected N. meningitidis (PCR) Not Detected Proteus species (PCR) Not Detected Serratia marcescens PCR Not Detected Staphylococcus sp PCR DETECTED A Staph aureus (PCR) DETECTED A mecA-Methicil Res Gene DETECTED A Streptococcus sp PCR Not Detected Group A Strep DNA Not Detected Group B Strep (PCR) Not Detected Strep pneumoniae (PCR) Not Detected P. aeruginosa (PCR) Not Detected Britta/B-Vanco Res Genes N/A KPC (blaKPC) Detect PCR N/A 05/14/17 04:52 WBC RBC Hgb Hct MCV MCH MCHC RDW Plt Count MPV Immature Gran % Seg Neutrophils % Lymphocytes % Monocytes % Eosinophils % Basophils % Neutrophils # Lymphocytes # Monocytes # Eosinophils # Basophils # Sodium 129 L Potassium 4.3 Chloride 97 L Carbon Dioxide 26 BUN 28 H Creatinine 3.96 H Est GFR ( Amer) 20 L Est GFR (Non-Af Amer) 16 L BUN/Creatinine Ratio 7 Glucose 74 Calculated Osmolality 272 L Calcium 8.3 L Magnesium 1.7 Random Vancomycin A. baumannii (PCR) Tashia albicans (PCR) C. glabrata (PCR) C. krusei (PCR) C. parapsilosis (PCR) C. tropicalis (PCR) Enterobacteriac sp PCR E. cloacae complex PCR Enterococcus sp PCR E. coli (PCR) H. influenzae (PCR) Klebsiella oxytoca PCR Klebsiella pneumoniae List. monocytogenes PCR N. meningitidis (PCR) Proteus species (PCR) Serratia marcescens PCR Staphylococcus sp PCR Staph aureus (PCR) mecA-Methicil Res Gene Streptococcus sp PCR Group A Strep DNA Group B Strep (PCR) Strep pneumoniae (PCR) P. aeruginosa (PCR) Britta/B-Vanco Res Genes KPC (blaKPC) Detect PCR Cultures: Cultures 05/12/17 08:38 Blood Culture - Preliminary Peripheral Venipuncture No growth. 05/12/17 08:38 Blood Culture - Preliminary Peripheral Venipuncture Staphylococcus aureus 05/08/17 00:10 Blood Culture - Final Central Venous Catheter Methicillin Resistant S.aureus 05/08/17 00:11 Blood Culture - Final Central Venous Catheter Methicillin Resistant S.aureus 05/08/17 00:25 Legionella Antigen - Final Urine,Random-Not Preferred Streptococcus pneumoniae Antigen (M - Final 05/08/17 00:25 Urine Culture - Final Urine,Clean Catch No growth. Serology 05/12/17 05/09/17 05/08/17 Range/Units 08:38 20:36 00:25 Urine Color Red A (Yellow) Urine Clarity Turbid A (Clear) Urine pH 6.0 (5.0-8.0) pH Units Ur Specific [place] 1.028 H (1.010-1.025) Urine Protein >=1000 H (Neg-Trace) mg/dL Urine Glucose (UA) 250 H (Normal) mg/dL Urine Ketones Trace H (Negative) mg/dL Urine Blood Large H (Negative) Urine Nitrite Negative (Negative) Urine Bilirubin Small H (Negative) Urine Urobilinogen Normal (Normal) mg/dL Ur Leukocyte Esterase Small H (Negative) Urine Microscopic RBC TNTC H (0-3) per hpf Urine Microscopic WBC 50-100 H (0-3) per hpf Ur Squamous Epith Cells Many H (None-Few) per lpf Urine Bacteria None Seen (None-Few) per hpf Hyaline Casts Few (None-Few) per lpf Ur Culture Indicated? YES A (NO) A. baumannii (PCR) Not Detected (Not Detect) Tashia albicans (PCR) Not Detected (Not Detect) C. glabrata (PCR) Not Detected (Not Detect) C. krusei (PCR) Not Detected (Not Detect) C. parapsilosis (PCR) Not Detected (Not Detect) C. tropicalis (PCR) Not Detected (Not Detect) Enterobacteriac sp PCR Not Detected (Not Detect) E. cloacae complex PCR Not Detected (Not Detect) Enterococcus sp PCR Not Detected (Not Detect) E. coli (PCR) Not Detected (Not Detect) H. influenzae (PCR) Not Detected (Not Detect) Hep Bs Antigen Nonreactive (Nonreactive) Hep Bs Antibody 69.32 mIU/mL Klebsiella oxytoca PCR Not Detected (Not Detect) Klebsiella pneumoniae Not Detected (Not Detect) List. monocytogenes PCR Not Detected (Not Detect) N. meningitidis (PCR) Not Detected (Not Detect) Proteus species (PCR) Not Detected (Not Detect) Serratia marcescens PCR Not Detected (Not Detect) Staphylococcus sp PCR DETECTED A (Not Detect) Staph aureus (PCR) DETECTED A (Not Detect) mecA-Methicil Res Gene DETECTED A (Not Detect) Streptococcus sp PCR Not Detected (Not Detect) Group A Strep DNA Not Detected (Not Detect) Group B Strep (PCR) Not Detected (Not Detect) Strep pneumoniae (PCR) Not Detected (Not Detect) P. aeruginosa (PCR) Not Detected (Not Detect) Britta/B-Vanco Res Genes N/A (Not Detect) KPC (blaKPC) Detect PCR N/A (Not Detect) 05/08/17 Range/Units 00:11 Urine Color (Yellow) Urine Clarity (Clear) Urine pH (5.0-8.0) pH Units Ur Specific [place] (1.010-1.025) Urine Protein (Neg-Trace) mg/dL Urine Glucose (UA) (Normal) mg/dL Urine Ketones (Negative) mg/dL Urine Blood (Negative) Urine Nitrite (Negative) Urine Bilirubin (Negative) Urine Urobilinogen (Normal) mg/dL Ur Leukocyte Esterase (Negative) Urine Microscopic RBC (0-3) per hpf Urine Microscopic WBC (0-3) per hpf Ur Squamous Epith Cells (None-Few) per lpf Urine Bacteria (None-Few) per hpf Hyaline Casts (None-Few) per lpf Ur Culture Indicated? (NO) A. baumannii (PCR) Not Detected (Not Detect) Tashia albicans (PCR) Not Detected (Not Detect) C. glabrata (PCR) Not Detected (Not Detect) C. krusei (PCR) Not Detected (Not Detect) C. parapsilosis (PCR) Not Detected (Not Detect) C. tropicalis (PCR) Not Detected (Not Detect) Enterobacteriac sp PCR Not Detected (Not Detect) E. cloacae complex PCR Not Detected (Not Detect) Enterococcus sp PCR Not Detected (Not Detect) E. coli (PCR) Not Detected (Not Detect) H. influenzae (PCR) Not Detected (Not Detect) Hep Bs Antigen (Nonreactive) Hep Bs Antibody mIU/mL Klebsiella oxytoca PCR Not Detected (Not Detect) Klebsiella pneumoniae Not Detected (Not Detect) List. monocytogenes PCR Not Detected (Not Detect) N. meningitidis (PCR) Not Detected (Not Detect) Proteus species (PCR) Not Detected (Not Detect) Serratia marcescens PCR Not Detected (Not Detect) Staphylococcus sp PCR DETECTED A (Not Detect) Staph aureus (PCR) DETECTED A (Not Detect) mecA-Methicil Res Gene DETECTED A (Not Detect) Streptococcus sp PCR Not Detected (Not Detect) Group A Strep DNA Not Detected (Not Detect) Group B Strep (PCR) Not Detected (Not Detect) Strep pneumoniae (PCR) Not Detected (Not Detect) P. aeruginosa (PCR) Not Detected (Not Detect) Britta/B-Vanco Res Genes Not Detected (Not Detect) KPC (blaKPC) Detect PCR Not Detected (Not Detect) Exam - Constitutional Vitals: Temp Pulse Resp BP Pulse Ox 98.1 F 66 14 154/88 96 05/14/17 10:05/14/17 10:05/14/17 10:05/14/17 10:05/14/17 10:55 General appearance: average body habitus, cooperative, no acute distress - Head Head exam: Present: atraumatic, normal inspection, normocephalic - Eye Eye exam: Present: EOMI, normal appearance, PERRL Pupils: Present: normal accommodation Additional comments: No subconjunctival hemorrhage noted. - ENT ENT exam: Present: mucous membranes moist - Neck Neck exam: Present: normal inspection - Respiratory Respiratory exam: Present: CTAB. Absent: rales, respiratory distress, rhonchi, wheezes - Cardiovascular Cardiovascular exam: Present: RRR, +S1, +S2 - GI/Abdominal GI/Abdominal exam: Present: normal bowel sounds, soft. Absent: distended, tenderness - Extremities Exam Extremities exam: Absent: joint swelling, pedal edema, tenderness Additional comments: Venous stasis dermatitis noted to the BLE. - Neurological Exam Neurological exam: Present: alert, oriented X3, no focal deficits - Psychiatric Psychiatric exam: Present: normal affect, normal mood - Skin Skin exam: Present: dry, intact, normal color, warm Additional comments: No endocarditis stigmata noted. Consult Discharge Plan - Plan Referrals: Nallely Hanna CNP [Primary Care Provider] - 05/22/17 10:00 am (Please follow up as schedule..) Fariba Cross CNP [Advanced Practice Nurse] - 05/19/17 8:00 am - Attending Attestation I examined this patient and my medical decision-making was reviewed with the Resident Physician. I agree with the documented findings, disposition and treatment plan as described except to the extent set forth below.
--- NOTE | 2017-05-14 15:22 | Internal Med Progress Note ---
<Natanael Quiñonez - Last Filed: 05/14/17 15:36> Date of Encounter: 05/14/17 Time of Encounter: 15:19 - 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 plan (1) Severe sepsis Current Visit: Yes Status: Acute 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 plan: Related to MRSA bacteremia in the setting of infected dialysis catheter. Blood cultures remain persistently positive, repeat blood cultures drawn yesterday are 1/2 positive for MRSA. ROSITA negative for vegetation. Continue IV vancomycin. Patient will likely need negative blood cultures before a more permanent dialysis access can be placed. Nephrology and infectious disease following. (2) Septicemia due to methicillin resistant Staphylococcus aureus Current Visit: Yes Status: Acute 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 plan: This the patient's third episode in the last 6 months. Vancomycin day 8 as discussed above. (3) Central line-associated bloodstream infection Current Visit: Yes Status: Acute Qualifiers: Encounter type: initial encounter Qualified Code(s): T80.211A - Bloodstream infection due to central venous catheter, initial encounter (4) Pneumonia Current Visit: Yes Status: Acute 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 plan: The patient had bilateral opacification chest x-ray, most likely related to pulmonary edema however underlying pneumonia could not be excluded. Patient completed 7 days of Rocephin, stopped today. Qualifiers: Pneumonia type: due to unspecified organism Laterality: right Lung location: lower lobe of lung Qualified Code(s): J18.1 - Lobar pneumonia, unspecified organism (5) Acute encephalopathy Current Visit: Yes Status: Resolved 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 plan: Likely related to severe sepsis on presentation possibly exacerbated by hypotension postdialysis. Resolved at this time. We will continue to monitor. (6) ESRD (end stage renal disease) Current Visit: No Status: Acute 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 plan: Continue with Friday, Friday, Friday dialysis through temporary HD line placed at this hospitalization. Patient will need more permanent access for hemodialysis once bloodstream infection clears. Nephrology following. (7) Hypertension Current Visit: No Status: Acute 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 plan: Patient was initially hypotensive on presentation, likely related to sepsis. Blood pressures responded well. Continue home blood pressure medications. We will continue monitor. Qualifiers: Hypertension type: essential hypertension Qualified Code(s): I10 - Essential (primary) hypertension - Subjective Interval history: Patient seen and examined at bedside. Patient reports mild abdominal pain that is diffuse and crampy in nature. Denies fever/chills. Patient states he is eating and drinking well. - Constitutional Vitals: Temp Pulse Resp BP Pulse Ox 98.1 F 66 14 154/88 96 05/14/17 10:07 05/14/17 10:07 05/14/17 10:07 05/14/17 10:07 05/14/17 10:55 General appearance: Present: disheveled, A&O X 3, no acute distress, answers questions appropriately - Respiratory Respiratory exam: Present: CTAB. Absent: rales, rhonchi, wheezes - Cardiovascular Cardiovascular exam: Present: RRR. Absent: gallop, rubs, systolic murmur - GI/Abdominal GI/Abdominal exam: Present: normal bowel sounds, soft, tenderness (mild, diffuse ). Absent: distended - Extremities Exam Extremities exam: Absent: pedal edema, tenderness - Neurological Exam Neurological exam: Present: alert, CN II-XII intact, oriented X3 Internal Medicine: Result - Labs CBC & Chem 7: 05/14/17 04:52 05/14/17 04:52 Labs: Short CBC 05/14/17 Range/Units 04:52 WBC 5.3 (4.3-11.1) K/mcL Hgb 8.1 L (12.9-16.9) g/dL Hct 25.2 L (37.5-50.1) % Plt Count 128 L (140-400) K/mcL Neutrophils # 3.1 (1.6-8.9) K/mcL BMP 05/14/17 04:52 Sodium 129 L Potassium 4.3 Chloride 97 L Carbon Dioxide 26 BUN 28 H Creatinine 3.96 H Glucose 74 Calcium 8.3 L - ABG Interpretation ABG results: PT/INR, D-dimer PT 12.3 Seconds (9.4-12.1) H 05/09/17 12:31 Consult Discharge Plan - Plan Referrals: Nallely Hanna CNP [Primary Care Provider] - 05/22/17 10:00 am (Please follow up as schedule..) Fariba Cross CNP [Advanced Practice Nurse] - 05/19/17 8:00 am <Jeovany Hansen - Last Filed: 05/14/17 18:16> Date of Encounter: 05/14/17 - Constitutional Vitals: Temp Pulse Resp BP Pulse Ox 97.1 F L 66 18 133/61 96 05/14/17 16:45 05/14/17 10:07 05/14/17 16:45 05/14/17 17:45 05/14/17 10:55 Internal Medicine: Result - Labs CBC & Chem 7: 05/14/17 04:52 05/14/17 04:52 Labs: Short CBC 05/14/17 Range/Units 04:52 WBC 5.3 (4.3-11.1) K/mcL Hgb 8.1 L (12.9-16.9) g/dL Hct 25.2 L (37.5-50.1) % Plt Count 128 L (140-400) K/mcL Neutrophils # 3.1 (1.6-8.9) K/mcL BMP 05/14/17 04:52 Sodium 129 L Potassium 4.3 Chloride 97 L Carbon Dioxide 26 BUN 28 H Creatinine 3.96 H Glucose 74 Calcium 8.3 L - ABG Interpretation ABG results: PT/INR, D-dimer PT 12.3 Seconds (9.4-12.1) H 05/09/17 12:31 - Attending Attestation I examined this patient and my medical decision-making was reviewed with the Resident Physician. I agree with the documented findings, disposition and treatment plan as described except to the extent set forth below.
[2017-05-14] MEDS ORDERED: *HR* Alteplase (Cathflo) 2 MG VIAL IVP ONE ×2 (15:51→15:52)
[2017-05-14] MEDS ORDERED: 0.9 % Sodium Chloride 2,000 ML ONE (16:32)
[2017-05-14] MEDS: *HR* HYDROcodone/Acet 5/325 mg TABLET PO PRN (22:27)
[2017-05-15] MEDS: Ipratropium/Albuterol Neb 3 ML IH SCH ×6 (03:32→23:39)
[2017-05-15 04:17] LABS: Basophils % 0.5 %; Eosinophils % 2.5 %; Hematocrit 25.4 % (37.5-50.1); Immature Granulocytes % 4.3 % (0-4); Lymphocytes % 24.7 %; Mean Corpuscular HGB Conc 31.5 g/dL (31.6-35.5); Mean Corpuscular Hemoglobin 29.3 pg (28.0-33.3); Mean Platelet Volume 10.2 fL (9.4-12.4); Monocytes % 9.4 %; Platelet Count 141 K/mcL (140-400); Red Blood Count 2.73 M/mcL (4.19-5.50); Red Cell Distribution Width 14.4 % (11.5-14.5); Segmented Neutrophils % 58.6 %
[2017-05-15 04:18] LABS: Eosinophils # 0.2 K/mcL (0.0-0.6); Lymphocytes # 1.6 K/mcL (0.6-4.6); Monocytes # 0.6 K/mcL (0.0-1.3); Neutrophils # 3.8 K/mcL (1.6-8.9)
[2017-05-15 04:33] LABS: Calcium 8.4 mg/dL (8.6-10.8); Magnesium 1.8 mg/dL (1.6-2.6); Potassium 4.2 mEq/L (3.5-4.5)
[2017-05-15] MEDS: *HR* Heparin 5,000 UNIT/ML VIAL SQ SCH ×3 (05:51→22:02)
[2017-05-15] MEDS: Budesonide/Formoterol 80/4.5 MDI IH SCH ×2 (07:54→19:52)
[2017-05-15] MEDS: Nicotine 21 MG PATCH.TD24 TD SCH (08:00)
[2017-05-15] MEDS: Gabapentin 400 MG CAPSULE PO SCH ×3 (08:06→22:01)
[2017-05-15] MEDS: tiZANidine 4 MG TABLET PO SCH ×3 (08:06→22:02)
[2017-05-15] MEDS: BuPROPion SR (12 HR) 150 MG TABLET PO SCH ×2 (08:06→22:02)
[2017-05-15] MEDS: Ondansetron ODT 4 MG TAB.RAPDIS PO SCH ×2 (08:07→22:02)
[2017-05-15] MEDS: Aspirin 81 MG TAB.CHEW PO SCH (08:07)
[2017-05-15] MEDS: hydrOXYzine pamoate 25 MG CAPSULE PO SCH ×3 (08:07→22:02)
[2017-05-15] MEDS: Sennosides/Docusate Sodium TABLET PO SCH ×2 (08:07→22:02)
[2017-05-15] MEDS: Isosorbide MONOnitrate (24 HR) 30 MG TAB.ER.24H PO SCH (08:26)
[2017-05-15] MEDS: Furosemide 40 MG TABLET PO SCH ×2 (08:26→17:47)
--- NOTE | 2017-05-15 08:46 | Nephrology Progress Note ---
Date of Encounter: 05/15/17 Time of Encounter: 08:44 - 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 Plan (1) ESRD (end stage renal disease) on dialysis Current Visit: Yes Status: Acute Temp line to be removed-not running well, poor clearance; will need new line place Plan for HD tomorrow Once blood cultures return negative will have new permacath placed. Continue renal diet Avoid nephrotoxins if possible (2) COPD (chronic obstructive pulmonary disease) with chronic bronchitis Current Visit: Yes Status: Acute per primary team (3) Sepsis associated hypotension Current Visit: Yes Status: Acute per infectious disease team (4) Hyponatremia Current Visit: No Status: Acute Improving-Na+ 132 Subjective Principal diagnosis: ESRD, Hyponatremia, Bacteremia Interval history: Patient seen and examined. Sitting up in bed, having IV placed. Objective - Vital Signs Vital signs: Vital Signs Temp Pulse Resp BP Pulse Ox 05/15/17 07:54 18 140/76 97 05/15/17 07:31 98.0 F 86 17 90 05/15/17 04:05 98.1 F 73 94 107/65 05/15/17 00:40 98.0 F 63 17 95/57 98 05/14/17 20:17 97.2 F L 84 19 127/71 94 05/14/17 20:06 16 93 05/14/17 19:15 109/58 05/14/17 19:00 98.9 F 20 116/60 05/14/17 18:45 110/58 05/14/17 18:30 99/65 05/14/17 18:15 95/57 05/14/17 18:00 98/58 05/14/17 17:45 133/61 05/14/17 17:30 103/59 05/14/17 17:15 101/55 05/14/17 17:00 110/63 05/14/17 16:45 97.1 F L 18 101/58 05/14/17 15:35 20 101/57 05/14/17 15:15 96.9 F L 22 109/59 05/14/17 10:55 96 05/14/17 10:07 98.1 F 66 14 154/88 96 Intake and Output 05/14/17 05/15/17 05/15/17 23:59 07:59 15:59 Intake Total 600 / 600 380 / 380 Output Total 2903 / 2903 Balance -2303 / -2303 380 / 380 Intake: Oral 0 / 0 380 / 380 Intake, Rinseback and 600 / 600 Flushes Output: Urine 0 / 0 Total Dialysis (HD) 2903 / 2903 Output Other: Stool Size Moderate Stool Consistency liquid liquid Stool Color Brown Brown Green # Bowel Movements 1 1 Weight 77.474 kg Hemodialysis Net Fluid 2903 Removed (mL) Patient Weight 05/15/17 23:59 Weight 77.474 kg - General Appearance General appearance: Present: well-developed EENT: Present: ATNC, mucous membranes moist, hearing intact, vision intact Neck: Present: supple Respiratory: Present: clear Cardiology: Present: no edema, normal S1, normal S2 Dialysis Vascular Access: Venous Catheter Gastrointestinal: Present: no tenderness, no guarding Integumentary: Present: warm and dry Neurologic: Present: alert and oriented x3 Psychiatric: Present: mood/affect appropriate - Lab 05/15/17 04:00 05/15/17 04:00 Most recent lab results Calcium 8.4 mg/dL (8.6-10.8) L 05/15/17 04:00 Phosphorus 2.2 mg/dL (2.3-4.7) L 05/12/17 05:15 Magnesium 1.8 mg/dL (1.6-2.6) 05/15/17 04:00 Consult Discharge Plan - Plan Referrals: Nallely Hanna STABILIZER OPERATOR [Primary Care Provider] - 05/22/17 10:00 am (Please follow up as schedule..) Fariba Cross CNP [Advanced Practice Nurse] - 05/19/17 8:00 am
[2017-05-15] MEDS: *HR* HYDROcodone/Acet 5/325 mg TABLET PO PRN (10:30)
--- NOTE | 2017-05-15 13:26 | Infectious Disease Progress No ---
Date of Encounter: 05/15/17 Time of Encounter: 13:24 - 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 Plan (1) Severe sepsis Current Visit: Yes Status: Acute The patient had two SIRS criteria plus hypotension responsive to IV fluids. He also had lactic acidosis. Likely secondary to bacteremia. Improved. Hypotension resolved. WBC has normalized and bandemia have resolved. Lactic acid improved. Peripheral blood cultures drawn 05/07/17 are positive 2/2 sets for MRSA. Blood cultures drawn from the TDC are positive x 2 sets. Additional peripheral blood cultures x 2 sets drawn 05/12/17 are positive 1/2 sets. Repeat blood cultures x 2 sets drawn 05/14/17 are pending. (2) Bacteremia Current Visit: Yes Status: Acute Causative organism MRSA. Source likely the TDC. Clinically, it did not appear infected. Additionally, the patient continues to be bacteremic despite therapeutic vanc levels and removal of the source of infection. Complicated due to persistent bacteremia. Patient had a previous MRSA bacteremia from a previous temporary dialysis catheter treated with IV Vanc at the dialysis center. Previous TDC removed with the insertion of a new line the same day. Peripheral blood cultures drawn 05/07/17 are positive 2/2 sets for MRSA. Blood cultures drawn from the TDC are positive x 2 sets as well. Additional peripheral blood cultures drawn 05/12/17 are positive 1/2 sets. Repeat blood cultures drawn 05/14/17 are pending x 2 sets. No endocarditis stigmata noted on exam. The patient has one major and one minor Modified Buitrago's criteria. TTE negative for valvular vegetations. ROSITA negative. Await repeat blood cultures. Continue Vancomycin IV. Pharmacy to dose. Goal trough approximately 15. Concerned about persistent bacteremia and possibility of failure due to the JENNA being 2. We will continue Vancomycin for now and if repeat blood cultures continue to come back positive, will consider switching to IV Daptomycin, but this will require the insertion of additional IV access as it can not be given with dialysis. Duration of treatment depends on the clinical picture, but we may need to continue treatment for four weeks from the first set of negative blood cultures. Monitor for drug toxicity and dose-adjust antibiotics. Get weekly CBC and Vanc troughs for the duration of treatment. Follow up with ID 05/19/17 at 0800. (3) Central line-associated bloodstream infection Current Visit: Yes Status: Acute Secondary to infected tunneled dialysis catheter. Causative organism MRSA. TDC removed 05/09/17. Qualifiers: Encounter type: initial encounter Qualified Code(s): T80.211A - Bloodstream infection due to central venous catheter, initial encounter (4) Pneumonia Current Visit: Yes Status: Acute Location: Right lower lobe. Causative organism unclear. Get sputum culture if patient is able to give an adequate specimen. S. pneumo and Legionella UAT negative. Treated with Rocephin x 8 days. Vancomycin continued for bacteremia. Qualifiers: Pneumonia type: due to unspecified organism Laterality: right Lung location: lower lobe of lung Qualified Code(s): J18.1 - Lobar pneumonia, unspecified organism (5) Lactic acidosis Current Visit: Yes Status: Resolved Lactic acid elevated at 8.6 on admission. Likely secondary to sepsis. Improved. Repeat lactic acid 2.6. (6) Hyponatremia Current Visit: No Status: Acute Serum sodium 132 this morning. Likely secondary to hypervolemia. Management per the primary and nephrology teams. (7) COPD (chronic obstructive pulmonary disease) Current Visit: No Status: Chronic Qualifiers: COPD type: unspecified COPD Qualified Code(s): J44.9 - Chronic obstructive pulmonary disease, unspecified (8) ESRD (end stage renal disease) on dialysis Current Visit: No Status: Chronic Nephrology consulted and following. - Subjective Interval history: Patient seen and examined. No acute events noted overnight. Patient drowsy, but awakens with verbal stimuli. Denies pain, fevers, or chills. Denies nausea, vomiting, or diarrhea. Denies abdominal pain. Reports last BM this morning. Denies urinary complaints. Infect Dis PN-Objective Data - Labs CBC & Chem 7: 05/15/17 04:00 05/15/17 04:00 Labs: Laboratory Results - last 24 hr 05/15/17 05/15/17 04:00 04:00 WBC 6.5 RBC 2.73 L Hgb 8.0 L Hct 25.4 L MCV 93.0 MCH 29.3 MCHC 31.5 L RDW 14.4 Plt Count 141 MPV 10.2 Immature Gran % 4.3 H Seg Neutrophils % 58.6 Lymphocytes % 24.7 Monocytes % 9.4 Eosinophils % 2.5 Basophils % 0.5 Neutrophils # 3.8 Lymphocytes # 1.6 Monocytes # 0.6 Eosinophils # 0.2 Basophils # 0.0 Sodium 132 L Potassium 4.2 Chloride 98 Carbon Dioxide 27 BUN 22 Creatinine 3.78 H Est GFR ( Amer) 21 L Est GFR (Non-Af Amer) 17 L BUN/Creatinine Ratio 6 Glucose 80 Calculated Osmolality 276 L Calcium 8.4 L Magnesium 1.8 Cultures: Cultures 05/12/17 08:38 Blood Culture - Final Peripheral Venipuncture Staphylococcus aureus 05/12/17 08:38 Blood Culture - Preliminary Peripheral Venipuncture No growth. 05/08/17 00:10 Blood Culture - Final Central Venous Catheter Methicillin Resistant S.aureus 05/08/17 00:11 Blood Culture - Final Central Venous Catheter Methicillin Resistant S.aureus 05/08/17 00:25 Legionella Antigen - Final Urine,Random-Not Preferred Streptococcus pneumoniae Antigen (M - Final 05/08/17 00:25 Urine Culture - Final Urine,Clean Catch No growth. Serology 05/12/17 05/09/17 05/08/17 Range/Units 08:38 20:36 00:25 Urine Color Red A (Yellow) Urine Clarity Turbid A (Clear) Urine pH 6.0 (5.0-8.0) pH Units Ur Specific [place] 1.028 H (1.010-1.025) Urine Protein >=1000 H (Neg-Trace) mg/dL Urine Glucose (UA) 250 H (Normal) mg/dL Urine Ketones Trace H (Negative) mg/dL Urine Blood Large H (Negative) Urine Nitrite Negative (Negative) Urine Bilirubin Small H (Negative) Urine Urobilinogen Normal (Normal) mg/dL Ur Leukocyte Esterase Small H (Negative) Urine Microscopic RBC TNTC H (0-3) per hpf Urine Microscopic WBC 50-100 H (0-3) per hpf Ur Squamous Epith Cells Many H (None-Few) per lpf Urine Bacteria None Seen (None-Few) per hpf Hyaline Casts Few (None-Few) per lpf Ur Culture Indicated? YES A (NO) A. baumannii (PCR) Not Detected (Not Detect) Tashia albicans (PCR) Not Detected (Not Detect) C. glabrata (PCR) Not Detected (Not Detect) C. krusei (PCR) Not Detected (Not Detect) C. parapsilosis (PCR) Not Detected (Not Detect) C. tropicalis (PCR) Not Detected (Not Detect) Enterobacteriac sp PCR Not Detected (Not Detect) E. cloacae complex PCR Not Detected (Not Detect) Enterococcus sp PCR Not Detected (Not Detect) E. coli (PCR) Not Detected (Not Detect) H. influenzae (PCR) Not Detected (Not Detect) Hep Bs Antigen Nonreactive (Nonreactive) Hep Bs Antibody 69.32 mIU/mL Klebsiella oxytoca PCR Not Detected (Not Detect) Klebsiella pneumoniae Not Detected (Not Detect) List. monocytogenes PCR Not Detected (Not Detect) N. meningitidis (PCR) Not Detected (Not Detect) Proteus species (PCR) Not Detected (Not Detect) Serratia marcescens PCR Not Detected (Not Detect) Staphylococcus sp PCR DETECTED A (Not Detect) Staph aureus (PCR) DETECTED A (Not Detect) mecA-Methicil Res Gene DETECTED A (Not Detect) Streptococcus sp PCR Not Detected (Not Detect) Group A Strep DNA Not Detected (Not Detect) Group B Strep (PCR) Not Detected (Not Detect) Strep pneumoniae (PCR) Not Detected (Not Detect) P. aeruginosa (PCR) Not Detected (Not Detect) Britta/B-Vanco Res Genes N/A (Not Detect) KPC (blaKPC) Detect PCR N/A (Not Detect) 05/08/17 Range/Units 00:11 Urine Color (Yellow) Urine Clarity (Clear) Urine pH (5.0-8.0) pH Units Ur Specific [place] (1.010-1.025) Urine Protein (Neg-Trace) mg/dL Urine Glucose (UA) (Normal) mg/dL Urine Ketones (Negative) mg/dL Urine Blood (Negative) Urine Nitrite (Negative) Urine Bilirubin (Negative) Urine Urobilinogen (Normal) mg/dL Ur Leukocyte Esterase (Negative) Urine Microscopic RBC (0-3) per hpf Urine Microscopic WBC (0-3) per hpf Ur Squamous Epith Cells (None-Few) per lpf Urine Bacteria (None-Few) per hpf Hyaline Casts (None-Few) per lpf Ur Culture Indicated? (NO) A. baumannii (PCR) Not Detected (Not Detect) Tashia albicans (PCR) Not Detected (Not Detect) C. glabrata (PCR) Not Detected (Not Detect) C. krusei (PCR) Not Detected (Not Detect) C. parapsilosis (PCR) Not Detected (Not Detect) C. tropicalis (PCR) Not Detected (Not Detect) Enterobacteriac sp PCR Not Detected (Not Detect) E. cloacae complex PCR Not Detected (Not Detect) Enterococcus sp PCR Not Detected (Not Detect) E. coli (PCR) Not Detected (Not Detect) H. influenzae (PCR) Not Detected (Not Detect) Hep Bs Antigen (Nonreactive) Hep Bs Antibody mIU/mL Klebsiella oxytoca PCR Not Detected (Not Detect) Klebsiella pneumoniae Not Detected (Not Detect) List. monocytogenes PCR Not Detected (Not Detect) N. meningitidis (PCR) Not Detected (Not Detect) Proteus species (PCR) Not Detected (Not Detect) Serratia marcescens PCR Not Detected (Not Detect) Staphylococcus sp PCR DETECTED A (Not Detect) Staph aureus (PCR) DETECTED A (Not Detect) mecA-Methicil Res Gene DETECTED A (Not Detect) Streptococcus sp PCR Not Detected (Not Detect) Group A Strep DNA Not Detected (Not Detect) Group B Strep (PCR) Not Detected (Not Detect) Strep pneumoniae (PCR) Not Detected (Not Detect) P. aeruginosa (PCR) Not Detected (Not Detect) Britta/B-Vanco Res Genes Not Detected (Not Detect) KPC (blaKPC) Detect PCR Not Detected (Not Detect) Exam - Constitutional Vitals: Temp Pulse Resp BP Pulse Ox 98.2 F 70 18 112/64 96 05/15/17 11:12 05/15/17 11:12 05/15/17 11:39 05/15/17 11:12 05/15/17 11:39 General appearance: average body habitus, cooperative, no acute distress - Head Head exam: Present: atraumatic, normal inspection, normocephalic - Eye Eye exam: Present: EOMI, normal appearance, PERRL Pupils: Present: normal accommodation Additional comments: No subconjunctival hemorrhage noted. - ENT ENT exam: Present: mucous membranes moist - Neck Neck exam: Present: normal inspection - Respiratory Respiratory exam: Present: CTAB. Absent: rales, respiratory distress, rhonchi, wheezes - Cardiovascular Cardiovascular exam: Present: RRR, +S1, +S2 - GI/Abdominal GI/Abdominal exam: Present: distended, normal bowel sounds, soft. Absent: tenderness - Extremities Exam Extremities exam: Absent: joint swelling, pedal edema, tenderness Additional comments: BLE venous stasis dermatitis noted. - Neurological Exam Neurological exam: Present: alert, oriented X3, no focal deficits - Psychiatric Psychiatric exam: Present: normal affect, normal mood - Skin Skin exam: Present: dry, intact, normal color, warm Consult Discharge Plan - Plan Referrals: Nallely Hanna CNP [Primary Care Provider] - 05/22/17 10:00 am (Please follow up as schedule..) Fariba Cross CNP [Advanced Practice Nurse] - 05/19/17 8:00 am - Attending Attestation I examined this patient and my medical decision-making was reviewed with the Resident Physician. I agree with the documented findings, disposition and treatment plan as described except to the extent set forth below.
[2017-05-15 13:28] LABS: ABG Base Excess 2.8 mEq/L (-2.0 to 3.0); ABG HCO3 27.9 mEQ/L (21-27); ABG Oxygen Saturation 94 % (95-98); ABG PCO2 45 mmHg (35-45); ABG PO2 71 mmHg (85-104); ABG TCO2 29.3 mEq/L (20-26); Blood Gas FiO2 30 %; Blood Gas Liter Flow 2.5 L/MIN
--- NOTE | 2017-05-15 14:03 | Internal Med Progress Note ---
<Natanael Quiñonez - Last Filed: 05/15/17 14:07> Date of Encounter: 05/15/17 Time of Encounter: 14:02 - 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 plan (1) Acute encephalopathy Current Visit: Yes Status: Acute 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 plan: Patient has any acute change in his mental status today. He is alert and oriented but does appear to be more confused regarding events of this hospital stay. At this point side effect of medication including opiate pain medication and high doses of gabapentin appeared to be the most likely cause however other causes including hypercapnia, elevated ammonia are possible. We will discontinue opioid pain medication and decrease the gabapentin dose from 800mg 4 times a day to 800mg 3 times a day. We will obtain ABG and check ammonia level. Patient has an unremarkable neuro exam with no focal deficits so CVA appears unlikely. (2) Severe sepsis Current Visit: Yes Status: Acute 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 plan: Related to MRSA bacteremia in the setting of infected dialysis catheter. Blood cultures remain persistently positive, repeat blood cultures drawn 3 days ago are 1/2 positive for MRSA, repeat blood cultures from yesterday are pending. RSOITA negative for vegetation. Continue IV vancomycin. Patient will likely need negative blood cultures before a more permanent dialysis access can be placed. Patient had temporary dialysis line pulled yesterday and will have a line holiday. Patient will likely need temporary access placed tomorrow prior to dialysis and will need to have negative blood cultures before more permanent dialysis access can be placed. Nephrology and infectious disease following. (3) Septicemia due to methicillin resistant Staphylococcus aureus Current Visit: Yes Status: Acute 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 plan: This the patient's third episode in the last 6 months. Vancomycin day 9 as discussed above. Given persistent bacteremia patient may need an extended course of IV antibiotics. Appreciate ID recommendations. (4) Central line-associated bloodstream infection Current Visit: Yes Status: Acute Qualifiers: Encounter type: initial encounter Qualified Code(s): T80.211A - Bloodstream infection due to central venous catheter, initial encounter (5) ESRD (end stage renal disease) Current Visit: No Status: Acute 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 plan: Continue with Friday, Friday, Friday dialysis through temporary HD line placed at this hospitalization. Patient will need more permanent access for hemodialysis once bloodstream infection clears. Nephrology following. (6) Hypertension Current Visit: No Status: Acute 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 plan: Blood pressure under good control. Continue home medications. Qualifiers: Hypertension type: essential hypertension Qualified Code(s): I10 - Essential (primary) hypertension (7) Chronic respiratory failure with hypoxia Current Visit: Yes Status: Acute 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 plan: Patient uses 2 L of oxygen at night. Patient's oxygen had been increased. Given concerns for altered mental status and possible hypercapnia will turn down the patient's oxygen to 2 L and maintain. - Subjective Interval history: Patient seen and examined at bedside. patient appears slightly confused today. He is alert and oriented 3 but is having difficulty recollecting events from yesterday. He is not appear to be in any acute distress. He has no complaints at this time. - Constitutional Vitals: Temp Pulse Resp BP Pulse Ox 98.3 F 67 17 112/64 94 05/15/17 13:42 05/15/17 13:42 05/15/17 13:42 05/15/17 11:12 05/15/17 13:42 General appearance: Present: disheveled, A&O X 3, no acute distress, answers questions appropriately - Respiratory Respiratory exam: Present: CTAB. Absent: rales, rhonchi, wheezes - Cardiovascular Cardiovascular exam: Present: RRR. Absent: gallop, rubs, systolic murmur - GI/Abdominal GI/Abdominal exam: Present: normal bowel sounds, soft. Absent: distended, tenderness - Extremities Exam Extremities exam: Present: warm. Absent: pedal edema, tenderness - Neurological Exam Neurological exam: Present: alert, altered (Patient appears slightly confused.) , oriented X3, no focal deficits Internal Medicine: Result - Labs CBC & Chem 7: 05/15/17 04:00 05/15/17 04:00 Labs: Short CBC 05/15/17 Range/Units 04:00 WBC 6.5 (4.3-11.1) K/mcL Hgb 8.0 L (12.9-16.9) g/dL Hct 25.4 L (37.5-50.1) % Plt Count 141 (140-400) K/mcL Neutrophils # 3.8 (1.6-8.9) K/mcL BMP 05/15/17 04:00 Sodium 132 L Potassium 4.2 Chloride 98 Carbon Dioxide 27 BUN 22 Creatinine 3.78 H Glucose 80 Calcium 8.4 L - ABG Interpretation ABG results: ABG ABG pH 7.40 pH Units (7.32-7.45) 05/15/17 13:15 ABG pCO2 45 mmHg (35-45) 05/15/17 13:15 ABG pO2 71 mmHg (85-104) L 05/15/17 13:15 ABG O2 Saturation 94 % (95-98) L 05/15/17 13:15 PT/INR, D-dimer PT 12.3 Seconds (9.4-12.1) H 05/09/17 12:31 Consult Discharge Plan - Plan Referrals: Nallely Hanna CNP [Primary Care Provider] - 05/22/17 10:00 am (Please follow up as schedule..) Fariba Cross CNP [Advanced Practice Nurse] - 05/19/17 8:00 am <Jeovany Hansen - Last Filed: 05/15/17 20:01> Date of Encounter: 05/15/17 - Constitutional Vitals: Temp Pulse Resp BP Pulse Ox 97.6 F 62 16 109/55 97 05/15/17 18:59 05/15/17 18:59 05/15/17 18:59 05/15/17 18:59 05/15/17 18:59 Internal Medicine: Result - Labs CBC & Chem 7: 05/15/17 04:00 05/15/17 04:00 Labs: Short CBC 05/15/17 Range/Units 04:00 WBC 6.5 (4.3-11.1) K/mcL Hgb 8.0 L (12.9-16.9) g/dL Hct 25.4 L (37.5-50.1) % Plt Count 141 (140-400) K/mcL Neutrophils # 3.8 (1.6-8.9) K/mcL BMP 05/15/17 04:00 Sodium 132 L Potassium 4.2 Chloride 98 Carbon Dioxide 27 BUN 22 Creatinine 3.78 H Glucose 80 Calcium 8.4 L - ABG Interpretation ABG results: ABG ABG pH 7.40 pH Units (7.32-7.45) 05/15/17 13:15 ABG pCO2 45 mmHg (35-45) 05/15/17 13:15 ABG pO2 71 mmHg (85-104) L 05/15/17 13:15 ABG O2 Saturation 94 % (95-98) L 05/15/17 13:15 PT/INR, D-dimer PT 12.4 Seconds (9.4-12.1) H 05/15/17 13:46 - Attending Attestation I examined this patient and my medical decision-making was reviewed with the Resident Physician. I agree with the documented findings, disposition and treatment plan as described except to the extent set forth below. He is definitely slower mentally.. no focal Neuro findings. This may be related to sundowning, meds such as the Narcotics. His Ammonia will need to be checked. This does not appear to be related to hypercapnia. If he is not improved, might benefit from CT scan of the head. When I was rounding with the team, we identified some mod. blood pooling on his clothes as his R femoral site was oozing.. Nursing to apply pressure dressing. We did exclude coagulopathy.
[2017-05-15 14:11] LABS: INR 1.1; Prothrombin Time 12.4 Seconds (9.4-12.1)
[2017-05-15] MEDS: Acetaminophen 325 MG TABLET PO PRN (22:02)
[2017-05-16] MEDS: Ipratropium/Albuterol Neb 3 ML IH SCH ×6 (03:50→23:26)
[2017-05-16] MEDS: *HR* Heparin 5,000 UNIT/ML VIAL SQ SCH ×3 (04:49→22:43)
[2017-05-16 05:05] LABS: Basophils % 0.2 %; Eosinophils # 0.1 K/mcL (0.0-0.6); Eosinophils % 1.6 %; Hematocrit 20.8 % (37.5-50.1); Hemoglobin 6.6 g/dL (12.9-16.9); Immature Granulocytes % 4.7 % (0-4); Lymphocytes # 2.4 K/mcL (0.6-4.6); Lymphocytes % 26.8 %; Mean Corpuscular HGB Conc 31.7 g/dL (31.6-35.5); Mean Corpuscular Hemoglobin 29.3 pg (28.0-33.3); Mean Corpuscular Volume 92.4 fL (83.0-100.0); Mean Platelet Volume 10.1 fL (9.4-12.4); Monocytes # 0.8 K/mcL (0.0-1.3); Monocytes % 8.9 %; Neutrophils # 5.2 K/mcL (1.6-8.9); Platelet Count 150 K/mcL (140-400); Red Blood Count 2.25 M/mcL (4.19-5.50); Red Cell Distribution Width 14.5 % (11.5-14.5); Segmented Neutrophils % 57.8 %
[2017-05-16 05:31] LABS: Calcium 8.1 mg/dL (8.6-10.8); Magnesium 1.6 mg/dL (1.6-2.6); Potassium 4.2 mEq/L (3.5-4.5)
[2017-05-16] MEDS: Budesonide/Formoterol 80/4.5 MDI IH SCH ×2 (07:52→20:48)
[2017-05-16] MEDS: Aspirin 81 MG TAB.CHEW PO SCH (08:49)
[2017-05-16] MEDS: tiZANidine 4 MG TABLET PO SCH ×3 (08:49→22:41)
[2017-05-16] MEDS: Gabapentin 400 MG CAPSULE PO SCH ×3 (08:49→22:41)
[2017-05-16] MEDS: Furosemide 40 MG TABLET PO SCH ×2 (08:49→22:41)
[2017-05-16] MEDS: Isosorbide MONOnitrate (24 HR) 30 MG TAB.ER.24H PO SCH (08:49)
[2017-05-16] MEDS: Ondansetron ODT 4 MG TAB.RAPDIS PO SCH ×2 (08:49→22:41)
[2017-05-16] MEDS: hydrOXYzine pamoate 25 MG CAPSULE PO SCH ×3 (08:50→22:40)
[2017-05-16] MEDS: BuPROPion SR (12 HR) 150 MG TABLET PO SCH ×2 (08:50→22:40)
[2017-05-16] MEDS: Sennosides/Docusate Sodium TABLET PO SCH ×2 (08:50→22:40)
[2017-05-16] MEDS: Nicotine 21 MG PATCH.TD24 TD SCH (08:50)
[2017-05-16] MEDS ORDERED: *HR* Heparin 5,000 UNIT/ML VIAL ONE (09:31)
[2017-05-16] MEDS ORDERED: 0.9 % Sodium Chloride 250 ML IVC PRN (09:34)
[2017-05-16] MEDS ORDERED: 0.9 % Sodium Chloride 1,000 ML PRIME SCH (09:45)
--- NOTE | 2017-05-16 10:28 | Infectious Disease Progress No ---
Date of Encounter: 05/16/17 Time of Encounter: 10:24 - 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 Plan (1) Severe sepsis Current Visit: Yes Status: Acute The patient had two SIRS criteria plus hypotension responsive to IV fluids. He also had lactic acidosis. Likely secondary to bacteremia. Resolved. Hypotension resolved. WBC has normalized and bandemia have resolved. Lactic acid improved. Peripheral blood cultures drawn 05/07/17 are positive 2/2 sets for MRSA. Blood cultures drawn from the TDC are positive x 2 sets. Additional peripheral blood cultures x 2 sets drawn 05/12/17 are positive 1/2 sets. Repeat blood cultures x 2 sets drawn 05/14/17 are NGTD. (2) Bacteremia Current Visit: Yes Status: Acute Causative organism MRSA. Source likely the TDC. Clinically, it did not appear infected. The patient continued to be bacteremic despite therapeutic vanc levels and removal of the source of infection. Complicated due to persistent bacteremia. Patient had a previous MRSA bacteremia from a previous temporary dialysis catheter treated with IV Vanc at the dialysis center. Previous TDC removed with the insertion of a new line the same day. Peripheral blood cultures drawn 05/07/17 are positive 2/2 sets for MRSA. Blood cultures drawn from the TDC are positive x 2 sets as well. Additional peripheral blood cultures drawn 05/12/17 are positive 1/2 sets. Repeat blood cultures drawn 05/14/17 are NGTD x 2 sets. No endocarditis stigmata noted on exam. The patient has one major and one minor Modified Buitrago's criteria. TTE negative for valvular vegetations. ROSITA negative. Continue Vancomycin IV. Pharmacy to dose. Goal trough approximately 15. Concerned about persistent bacteremia and possibility of failure due to the JENNA being 2. We will continue Vancomycin for now and if repeat blood cultures continue to come back positive, will consider switching to IV Daptomycin, but this will require the insertion of additional IV access as it can not be given with dialysis. Duration of treatment depends on the clinical picture, but we may need to continue treatment for four weeks from the first set of negative blood cultures. Monitor for drug toxicity and dose-adjust antibiotics. Get weekly CBC and Vanc troughs for the duration of treatment. Follow up with ID 2 weeks after discharge. (3) Central line-associated bloodstream infection Current Visit: Yes Status: Acute Secondary to infected tunneled dialysis catheter. Causative organism MRSA. TDC removed 05/09/17. Qualifiers: Encounter type: initial encounter Qualified Code(s): T80.211A - Bloodstream infection due to central venous catheter, initial encounter (4) Pneumonia Current Visit: Yes Status: Acute Location: Right lower lobe. Causative organism unclear. Get sputum culture if patient is able to give an adequate specimen. S. pneumo and Legionella UAT negative. Treated with Rocephin x 8 days. Vancomycin continued for bacteremia. Qualifiers: Pneumonia type: due to unspecified organism Laterality: right Lung location: lower lobe of lung Qualified Code(s): J18.1 - Lobar pneumonia, unspecified organism (5) Lactic acidosis Current Visit: Yes Status: Resolved Lactic acid elevated at 8.6 on admission. Likely secondary to sepsis. Improved. Repeat lactic acid 2.6. (6) Hyponatremia Current Visit: No Status: Acute Serum sodium 128 this morning. Likely secondary to hypervolemia. Management per the primary and nephrology teams. (7) COPD (chronic obstructive pulmonary disease) Current Visit: No Status: Chronic Qualifiers: COPD type: unspecified COPD Qualified Code(s): J44.9 - Chronic obstructive pulmonary disease, unspecified (8) ESRD (end stage renal disease) on dialysis Current Visit: No Status: Chronic Nephrology consulted and following. - Subjective Interval history: Patient seen and examined. No acute events noted overnight. Patient drowsy, but awakens with verbal stimuli. Denies pain, fevers, or chills. Denies nausea, vomiting, or diarrhea. Complains of abdominal pain this morning. Reports last BM this morning. Denies urinary complaints. Denies oral thrush or rashes. Temporary dialysis catheter to the right groin discontinued yesterday. Plan to reinsert temporary dialysis catheter this morning per interventional radiology. Infect Dis PN-Objective Data - Labs CBC & Chem 7: 05/16/17 04:48 05/16/17 04:48 Labs: Laboratory Results - last 24 hr 05/15/17 05/15/17 05/15/17 13:15 13:46 13:46 WBC RBC Hgb Hct MCV MCH MCHC RDW Plt Count MPV Immature Gran % Seg Neutrophils % Lymphocytes % Monocytes % Eosinophils % Basophils % Neutrophils # Lymphocytes # Monocytes # Eosinophils # Basophils # PT 12.4 H INR 1.1 ABG pH 7.40 ABG pCO2 45 ABG pO2 71 L ABG HCO3 27.9 H ABG Total CO2 29.3 H ABG O2 Saturation 94 L ABG Base Excess 2.8 Liter Flow 2.5 Blood Gas Modality NC Inspired O2 30 Sodium Potassium Chloride Carbon Dioxide BUN Creatinine Est GFR ( Amer) Est GFR (Non-Af Amer) BUN/Creatinine Ratio Glucose Calculated Osmolality Calcium Magnesium Ammonia 16 L Random Vancomycin Blood Type Antibody Screen Crossmatch 05/15/17 05/16/17 05/16/17 13:46 04:48 04:48 WBC 9.0 RBC 2.25 L Hgb 6.6 L Hct 20.8 L MCV 92.4 MCH 29.3 MCHC 31.7 RDW 14.5 Plt Count 150 MPV 10.1 Immature Gran % 4.7 H Seg Neutrophils % 57.8 Lymphocytes % 26.8 Monocytes % 8.9 Eosinophils % 1.6 Basophils % 0.2 Neutrophils # 5.2 Lymphocytes # 2.4 Monocytes # 0.8 Eosinophils # 0.1 Basophils # 0.0 PT INR ABG pH ABG pCO2 ABG pO2 ABG HCO3 ABG Total CO2 ABG O2 Saturation ABG Base Excess Liter Flow Blood Gas Modality Inspired O2 Sodium 128 L Potassium 4.2 Chloride 98 Carbon Dioxide 24 BUN 30 H Creatinine 5.27 H Est GFR ( Amer) 14 L Est GFR (Non-Af Amer) 12 L BUN/Creatinine Ratio 6 Glucose 71 Calculated Osmolality 271 L Calcium 8.1 L Magnesium 1.6 Ammonia Random Vancomycin Blood Type A NEGATIVE Antibody Screen NEGATIVE Crossmatch See Detail 05/16/17 04:48 WBC RBC Hgb Hct MCV MCH MCHC RDW Plt Count MPV Immature Gran % Seg Neutrophils % Lymphocytes % Monocytes % Eosinophils % Basophils % Neutrophils # Lymphocytes # Monocytes # Eosinophils # Basophils # PT INR ABG pH ABG pCO2 ABG pO2 ABG HCO3 ABG Total CO2 ABG O2 Saturation ABG Base Excess Liter Flow Blood Gas Modality Inspired O2 Sodium Potassium Chloride Carbon Dioxide BUN Creatinine Est GFR ( Amer) Est GFR (Non-Af Amer) BUN/Creatinine Ratio Glucose Calculated Osmolality Calcium Magnesium Ammonia Random Vancomycin 18.0 Blood Type Antibody Screen Crossmatch Cultures: Cultures 05/14/17 13:59 Blood Culture - Preliminary Peripheral Venipuncture No growth. 05/14/17 13:54 Blood Culture - Preliminary Peripheral Venipuncture No growth. 05/12/17 08:38 Blood Culture - Final Peripheral Venipuncture Staphylococcus aureus 05/12/17 08:38 Blood Culture - Preliminary Peripheral Venipuncture No growth. 05/08/17 00:10 Blood Culture - Final Central Venous Catheter Methicillin Resistant S.aureus 05/08/17 00:11 Blood Culture - Final Central Venous Catheter Methicillin Resistant S.aureus 05/08/17 00:25 Legionella Antigen - Final Urine,Random-Not Preferred Streptococcus pneumoniae Antigen (M - Final 05/08/17 00:25 Urine Culture - Final Urine,Clean Catch No growth. Serology 05/12/17 05/09/17 05/08/17 Range/Units 08:38 20:36 00:25 Urine Color Red A (Yellow) Urine Clarity Turbid A (Clear) Urine pH 6.0 (5.0-8.0) pH Units Ur Specific [place] 1.028 H (1.010-1.025) Urine Protein >=1000 H (Neg-Trace) mg/dL Urine Glucose (UA) 250 H (Normal) mg/dL Urine Ketones Trace H (Negative) mg/dL Urine Blood Large H (Negative) Urine Nitrite Negative (Negative) Urine Bilirubin Small H (Negative) Urine Urobilinogen Normal (Normal) mg/dL Ur Leukocyte Esterase Small H (Negative) Urine Microscopic RBC TNTC H (0-3) per hpf Urine Microscopic WBC 50-100 H (0-3) per hpf Ur Squamous Epith Cells Many H (None-Few) per lpf Urine Bacteria None Seen (None-Few) per hpf Hyaline Casts Few (None-Few) per lpf Ur Culture Indicated? YES A (NO) A. baumannii (PCR) Not Detected (Not Detect) Tashia albicans (PCR) Not Detected (Not Detect) C. glabrata (PCR) Not Detected (Not Detect) C. krusei (PCR) Not Detected (Not Detect) C. parapsilosis (PCR) Not Detected (Not Detect) C. tropicalis (PCR) Not Detected (Not Detect) Enterobacteriac sp PCR Not Detected (Not Detect) E. cloacae complex PCR Not Detected (Not Detect) Enterococcus sp PCR Not Detected (Not Detect) E. coli (PCR) Not Detected (Not Detect) H. influenzae (PCR) Not Detected (Not Detect) Hep Bs Antigen Nonreactive (Nonreactive) Hep Bs Antibody 69.32 mIU/mL Klebsiella oxytoca PCR Not Detected (Not Detect) Klebsiella pneumoniae Not Detected (Not Detect) List. monocytogenes PCR Not Detected (Not Detect) N. meningitidis (PCR) Not Detected (Not Detect) Proteus species (PCR) Not Detected (Not Detect) Serratia marcescens PCR Not Detected (Not Detect) Staphylococcus sp PCR DETECTED A (Not Detect) Staph aureus (PCR) DETECTED A (Not Detect) mecA-Methicil Res Gene DETECTED A (Not Detect) Streptococcus sp PCR Not Detected (Not Detect) Group A Strep DNA Not Detected (Not Detect) Group B Strep (PCR) Not Detected (Not Detect) Strep pneumoniae (PCR) Not Detected (Not Detect) P. aeruginosa (PCR) Not Detected (Not Detect) Britta/B-Vanco Res Genes N/A (Not Detect) KPC (blaKPC) Detect PCR N/A (Not Detect) 05/08/17 Range/Units 00:11 Urine Color (Yellow) Urine Clarity (Clear) Urine pH (5.0-8.0) pH Units Ur Specific [place] (1.010-1.025) Urine Protein (Neg-Trace) mg/dL Urine Glucose (UA) (Normal) mg/dL Urine Ketones (Negative) mg/dL Urine Blood (Negative) Urine Nitrite (Negative) Urine Bilirubin (Negative) Urine Urobilinogen (Normal) mg/dL Ur Leukocyte Esterase (Negative) Urine Microscopic RBC (0-3) per hpf Urine Microscopic WBC (0-3) per hpf Ur Squamous Epith Cells (None-Few) per lpf Urine Bacteria (None-Few) per hpf Hyaline Casts (None-Few) per lpf Ur Culture Indicated? (NO) A. baumannii (PCR) Not Detected (Not Detect) Tashia albicans (PCR) Not Detected (Not Detect) C. glabrata (PCR) Not Detected (Not Detect) C. krusei (PCR) Not Detected (Not Detect) C. parapsilosis (PCR) Not Detected (Not Detect) C. tropicalis (PCR) Not Detected (Not Detect) Enterobacteriac sp PCR Not Detected (Not Detect) E. cloacae complex PCR Not Detected (Not Detect) Enterococcus sp PCR Not Detected (Not Detect) E. coli (PCR) Not Detected (Not Detect) H. influenzae (PCR) Not Detected (Not Detect) Hep Bs Antigen (Nonreactive) Hep Bs Antibody mIU/mL Klebsiella oxytoca PCR Not Detected (Not Detect) Klebsiella pneumoniae Not Detected (Not Detect) List. monocytogenes PCR Not Detected (Not Detect) N. meningitidis (PCR) Not Detected (Not Detect) Proteus species (PCR) Not Detected (Not Detect) Serratia marcescens PCR Not Detected (Not Detect) Staphylococcus sp PCR DETECTED A (Not Detect) Staph aureus (PCR) DETECTED A (Not Detect) mecA-Methicil Res Gene DETECTED A (Not Detect) Streptococcus sp PCR Not Detected (Not Detect) Group A Strep DNA Not Detected (Not Detect) Group B Strep (PCR) Not Detected (Not Detect) Strep pneumoniae (PCR) Not Detected (Not Detect) P. aeruginosa (PCR) Not Detected (Not Detect) Birtta/B-Vanco Res Genes Not Detected (Not Detect) KPC (blaKPC) Detect PCR Not Detected (Not Detect) Exam - Constitutional Vitals: Temp Pulse Resp BP Pulse Ox 97.7 F 69 14 148/75 93 05/16/17 08:55 05/16/17 08:55 05/16/17 08:55 05/16/17 08:55 05/16/17 08:55 General appearance: average body habitus, cooperative, no acute distress - Head Head exam: Present: atraumatic, normal inspection, normocephalic - Eye Eye exam: Present: EOMI, normal appearance, PERRL Pupils: Present: normal accommodation Additional comments: No subconjunctival hemorrhage noted. - ENT ENT exam: Present: mucous membranes moist - Neck Neck exam: Present: normal inspection - Cardiovascular Cardiovascular exam: Present: RRR, +S1, +S2 - GI/Abdominal GI/Abdominal exam: Present: distended (mild), normal bowel sounds, soft, tenderness (generalized) - Extremities Exam Extremities exam: Absent: joint swelling, pedal edema, tenderness Additional comments: Venous stasis dermatitis noted to the BLE. - Neurological Exam Neurological exam: Present: alert, oriented X3, no focal deficits - Psychiatric Psychiatric exam: Present: normal affect, normal mood - Skin Skin exam: Present: dry, intact, normal color, warm - Additional findings Additional findings: Previous tunneled dialysis catheter site to the left upper chest [employer] without erythema, warmth, or drainage. Previous TDC site to the right groin with dressing with small amount of old sanguinous drainage noted. Consult Discharge Plan - Plan Referrals: Nallely Hanna CNP [Primary Care Provider] - 05/22/17 10:00 am (Please follow up as schedule..) Fariba Cross CNP [Advanced Practice Nurse] - 05/19/17 8:00 am - Attending Attestation I examined this patient and my medical decision-making was reviewed with the Resident Physician. I agree with the documented findings, disposition and treatment plan as described except to the extent set forth below.
[2017-05-16] MEDS ORDERED: *HR* Heparin 10,000 UNIT/10 ML VIAL IV PRN (11:02)
--- NOTE | 2017-05-16 13:01 | Nephrology Progress Note ---
Date of Encounter: 05/16/17 Time of Encounter: 13:00 Subjective Principal diagnosis: ESRD, Hyponatremia, Bacteremia Interval history: Patient without new complaint. He refused examination. Objective - Vital Signs Vital signs: Vital Signs Temp Pulse Resp BP Pulse Ox 05/16/17 10:33 97.7 F 71 16 123/71 94 05/16/17 08:55 97.7 F 69 14 148/75 93 05/16/17 07:52 16 95 05/16/17 05:05 98.0 F 64 16 118/60 94 05/15/17 23:30 97.8 F 62 16 115/64 96 05/15/17 18:59 97.6 F 62 16 109/55 97 05/15/17 16:31 18 94 05/15/17 15:03 98.1 F 68 19 93/51 95 05/15/17 13:42 98.3 F 67 17 94 Intake and Output 05/15/17 05/16/17 05/16/17 23:59 07:59 15:59 Intake Total 0 / 0 Balance 0 / 0 Intake: Oral 0 / 0 Other: Meal NPO Stool Size Moderate Small Stool Consistency loose liquid Stool Color Green Brown [place] # Voids 0 # Bowel Movements 1 # Bowel Movement Diapers 1 Weight 78.109 kg - General Appearance General appearance: Present: well-developed, well-nourished EENT: Present: ATNC Additional Comments: respirations are unlabored. Cardiology: Present: regular rate Neurologic: Present: alert and oriented x3 Psychiatric: Present: agitated - Lab 05/16/17 04:48 05/16/17 04:48 Most recent lab results ABG pH 7.40 pH Units (7.32-7.45) 05/15/17 13:15 ABG pCO2 45 mmHg (35-45) 05/15/17 13:15 ABG pO2 71 mmHg (85-104) L 05/15/17 13:15 ABG HCO3 27.9 mEQ/L (21-27) H 05/15/17 13:15 ABG O2 Saturation 94 % (95-98) L 05/15/17 13:15 Calcium 8.1 mg/dL (8.6-10.8) L 05/16/17 04:48 Phosphorus 2.2 mg/dL (2.3-4.7) L 05/12/17 05:15 Magnesium 1.6 mg/dL (1.6-2.6) 05/16/17 04:48 Consult Discharge Plan - Plan Referrals: Nallely Hanna CNP [Primary Care Provider] - 05/22/17 10:00 am (Please follow up as schedule..) Fariba Cross CNP [Advanced Practice Nurse] - 05/19/17 8:00 am
--- NOTE | 2017-05-16 13:07 | Internal Med Progress Note ---
<OlamideNatanael Edna - Last Filed: 05/16/17 12:52> Date of Encounter: 05/16/17 Time of Encounter: 12:53 - 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 plan (1) Acute encephalopathy Current Visit: Yes Status: Acute 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 plan: Appears improved today. At this point appears to be related to medications. Ammonia was negative, patient was not hypercapnic. Continue to hold sedating medication and decrease gabapentin. (2) Severe sepsis Current Visit: Yes Status: Acute 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 plan: Related to MRSA bacteremia in the setting of infected dialysis catheter. Blood cultures were persistently positive for 3 draws, repeat blood cultures drawn 2 days ago are negative. ROSITA negative for vegetation. Continue IV vancomycin. We will need to wait for 48 hours after negative blood cultures before permacath dialysis catheter can be placed. Temporary dialysis catheter placed today. Nephrology and infectious disease following. (3) Septicemia due to methicillin resistant Staphylococcus aureus Current Visit: Yes Status: Acute 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 plan: This the patient's third episode in the last 6 months. Vancomycin day 10 as discussed above. Given persistent bacteremia patient may need an extended course of IV antibiotics, likely at least 2 weeks after negative blood cultures , possibly 4 weeks. Appreciate ID recommendations. (4) Acute blood loss anemia Current Visit: Yes Status: Acute 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 plan: Hemoglobin was 6.6 today. Hemoglobin had been around his baseline of 8 for this hospital stay. Likely related to bleeding post temporary HD line removal in the setting of ESRD and poor erythropoiesis. We will give 2 units of packed red blood cells with dialysis today. Patient has remained hemodynamically stable. (5) Central line-associated bloodstream infection Current Visit: Yes Status: Acute Qualifiers: Encounter type: initial encounter Qualified Code(s): T80.211A - Bloodstream infection due to central venous catheter, initial encounter (6) ESRD (end stage renal disease) Current Visit: No Status: Acute 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 plan: Continue with Friday, Friday, Friday dialysis through temporary HD line placed at this hospitalization. Patient will need more permanent access for hemodialysis once bloodstream infection clears as discussed above. Nephrology following. (7) Hypertension Current Visit: No Status: Acute 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 plan: Blood pressure under good control. Continue home medications. Qualifiers: Hypertension type: essential hypertension Qualified Code(s): I10 - Essential (primary) hypertension (8) Chronic respiratory failure with hypoxia Current Visit: Yes Status: Acute 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 plan: Patient uses 2 L of oxygen at night. Patient's oxygen had been increased. Given concerns for altered mental status and possible hypercapnia will turn down the patient's oxygen to 2 L and maintain. - Subjective Interval history: Patient seen and examined at bedside. patient appears slightly confused today, but improved from yesterday. He is alert and oriented 3 but is having difficulty recollecting events from yesterday. He is not appear to be in any acute distress. He has no complaints at this time. - Constitutional Vitals: Temp Pulse Resp BP Pulse Ox 97.7 F 71 16 123/71 94 05/16/17 10:33 05/16/17 10:33 05/16/17 10:33 05/16/17 10:33 05/16/17 10:33 General appearance: Present: disheveled, A&O X 3, no acute distress, answers questions appropriately - Respiratory Respiratory exam: Present: CTAB. Absent: rales, rhonchi, wheezes - Cardiovascular Cardiovascular exam: Present: RRR. Absent: gallop, rubs, systolic murmur - GI/Abdominal GI/Abdominal exam: Present: normal bowel sounds, soft. Absent: distended, tenderness - Extremities Exam Extremities exam: Present: warm. Absent: pedal edema, tenderness - Neurological Exam Neurological exam: Present: alert, CN II-XII intact, oriented X3, no focal deficits Internal Medicine: Result - Labs CBC & Chem 7: 05/16/17 04:48 05/16/17 04:48 Labs: Short CBC 05/16/17 Range/Units 04:48 WBC 9.0 (4.3-11.1) K/mcL Hgb 6.6 L (12.9-16.9) g/dL Hct 20.8 L (37.5-50.1) % Plt Count 150 (140-400) K/mcL Neutrophils # 5.2 (1.6-8.9) K/mcL BMP 05/16/17 04:48 Sodium 128 L Potassium 4.2 Chloride 98 Carbon Dioxide 24 BUN 30 H Creatinine 5.27 H Glucose 71 Calcium 8.1 L - ABG Interpretation ABG results: ABG ABG pH 7.40 pH Units (7.32-7.45) 05/15/17 13:15 ABG pCO2 45 mmHg (35-45) 05/15/17 13:15 ABG pO2 71 mmHg (85-104) L 05/15/17 13:15 ABG O2 Saturation 94 % (95-98) L 05/15/17 13:15 PT/INR, D-dimer PT 12.4 Seconds (9.4-12.1) H 05/15/17 13:46 - Impressions Impressions Guidance Needle Placement Ultrasound 05/16/17 00:00 IMPRESSION: Successful ultrasound guided non-tunneled temporary hemodialysis catheter placement. D/ / Fred Ceja MD / Fred Ceja MD Interpreting Provider: Fred Ceja MD Insertion Non-Tunneled Catheter 05/16/17 00:00 IMPRESSION: Successful ultrasound guided non-tunneled temporary hemodialysis catheter placement. D/ / Fred Ceja MD / Fred Ceja MD Interpreting Provider: Fred Ceja MD Consult Discharge Plan - Plan Referrals: Nallely Hanna CNP [Primary Care Provider] - 05/22/17 10:00 am (Please follow up as schedule..) Fariba Cross CNP [Advanced Practice Nurse] - 05/19/17 8:00 am <Jeovany Hansen - Last Filed: 05/16/17 17:53> Date of Encounter: 05/16/17 - Constitutional Vitals: Temp Pulse Resp BP Pulse Ox 97.7 F 97 14 152/77 96 05/16/17 15:01 05/16/17 15:01 05/16/17 15:01 05/16/17 15:01 05/16/17 15:01 Internal Medicine: Result - Labs CBC & Chem 7: 05/16/17 04:48 05/16/17 04:48 Labs: Short CBC 05/16/17 Range/Units 04:48 WBC 9.0 (4.3-11.1) K/mcL Hgb 6.6 L (12.9-16.9) g/dL Hct 20.8 L (37.5-50.1) % Plt Count 150 (140-400) K/mcL Neutrophils # 5.2 (1.6-8.9) K/mcL BMP 05/16/17 04:48 Sodium 128 L Potassium 4.2 Chloride 98 Carbon Dioxide 24 BUN 30 H Creatinine 5.27 H Glucose 71 Calcium 8.1 L - ABG Interpretation ABG results: ABG ABG pH 7.40 pH Units (7.32-7.45) 05/15/17 13:15 ABG pCO2 45 mmHg (35-45) 05/15/17 13:15 ABG pO2 71 mmHg (85-104) L 05/15/17 13:15 ABG O2 Saturation 94 % (95-98) L 05/15/17 13:15 PT/INR, D-dimer PT 12.4 Seconds (9.4-12.1) H 05/15/17 13:46 - Impressions Impressions Guidance Needle Placement Ultrasound 05/16/17 00:00 IMPRESSION: Successful ultrasound guided non-tunneled temporary hemodialysis catheter placement. D/ / Fred Ceja MD / Fred Ceja MD Interpreting Provider: Fred Ceja MD Insertion Non-Tunneled Catheter 05/16/17 00:00 IMPRESSION: Successful ultrasound guided non-tunneled temporary hemodialysis catheter placement. D/ / Fred Ceja MD / Fred Ceja MD Interpreting Provider: Fred Ceja MD - Attending Attestation I examined this patient and my medical decision-making was reviewed with the Resident Physician. I agree with the documented findings, disposition and treatment plan as described except to the extent set forth below. It is not real clear why he has had some somnolence over the past two days.. Hope to place more permanent line in two days. He did recieve transfusion today.. He would benefit from ECF, but unwilling. He will most likely have quick bounce back upon DC
[2017-05-16] MEDS ORDERED: 0.9 % Sodium Chloride 2,000 ML ONE (18:33)
[2017-05-16] MEDS ORDERED: Vancomycin 500 MG in D5% in Water (Mini-Bag+) 100 ML IVPB ONE (19:00)
[2017-05-17 00:19] LABS: Basophils % 0.3 %; Eosinophils # 0.1 K/mcL (0.0-0.6); Hematocrit 28.7 % (37.5-50.1); Immature Granulocytes % 2.4 % (0-4); Lymphocytes # 1.4 K/mcL (0.6-4.6); Lymphocytes % 12.2 %; Mean Corpuscular HGB Conc 33.1 g/dL (31.6-35.5); Mean Corpuscular Hemoglobin 29.1 pg (28.0-33.3); Mean Platelet Volume 9.9 fL (9.4-12.4); Monocytes # 0.9 K/mcL (0.0-1.3); Monocytes % 7.9 %; Neutrophils # 8.5 K/mcL (1.6-8.9); Platelet Count 179 K/mcL (140-400); Red Blood Count 3.26 M/mcL (4.19-5.50); Red Cell Distribution Width 13.9 % (11.5-14.5); Segmented Neutrophils % 76.2 %
[2017-05-17 00:21] LABS: Hemoglobin 9.5 g/dL (12.9-16.9)
[2017-05-17 00:33] LABS: Calcium 8.2 mg/dL (8.6-10.8); Magnesium 1.7 mg/dL (1.6-2.6); Potassium 3.2 mEq/L (3.5-4.5)
[2017-05-17] MEDS: Ipratropium/Albuterol Neb 3 ML IH SCH ×6 (04:04→23:50)
[2017-05-17] MEDS: *HR* Heparin 5,000 UNIT/ML VIAL SQ SCH ×3 (06:23→21:08)
[2017-05-17] MEDS: Budesonide/Formoterol 80/4.5 MDI IH SCH ×2 (07:37→19:26)
[2017-05-17] MEDS: Gabapentin 400 MG CAPSULE PO SCH ×3 (09:49→21:07)
[2017-05-17] MEDS: tiZANidine 4 MG TABLET PO SCH ×3 (09:49→21:07)
[2017-05-17] MEDS: Sennosides/Docusate Sodium TABLET PO SCH (09:51)
[2017-05-17] MEDS: Aspirin 81 MG TAB.CHEW PO SCH (09:52)
[2017-05-17] MEDS: Ondansetron ODT 4 MG TAB.RAPDIS PO SCH ×2 (09:52→21:07)
[2017-05-17] MEDS: hydrOXYzine pamoate 25 MG CAPSULE PO SCH ×3 (09:52→21:08)
[2017-05-17] MEDS: Isosorbide MONOnitrate (24 HR) 30 MG TAB.ER.24H PO SCH (09:52)
[2017-05-17] MEDS: Furosemide 40 MG TABLET PO SCH ×2 (09:53→17:40)
[2017-05-17] MEDS: Nicotine 21 MG PATCH.TD24 TD SCH (09:54)
[2017-05-17] MEDS: BuPROPion SR (12 HR) 150 MG TABLET PO SCH ×2 (09:59→21:07)
[2017-05-17] MEDS ORDERED: *HR* OxyCODONE/APAP 5/325 TABLET PO ONE (10:18)
--- NOTE | 2017-05-17 12:25 | Internal Med Progress Note ---
<Jose AlbertoNatanael beal Edna - Last Filed: 05/17/17 12:23> Date of Encounter: 05/17/17 Time of Encounter: 12:23 - 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 plan (1) Acute encephalopathy Current Visit: Yes Status: Resolved 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 plan: Resolved. At this point appears to be related to medications. Continue current regimen (2) Severe sepsis Current Visit: Yes Status: Acute 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 plan: Related to MRSA bacteremia in the setting of infected dialysis catheter. Blood cultures were persistently positive for 3 draws, repeat blood cultures drawn 3 days ago are negative. ROSITA negative for vegetation. Continue IV vancomycin. We will need to wait for 48 hours after negative blood cultures before permacath dialysis catheter can be placed. Temporary dialysis catheter placed yesterday. Nephrology and infectious disease following. (3) Septicemia due to methicillin resistant Staphylococcus aureus Current Visit: Yes Status: Acute 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 plan: This the patient's third episode in the last 6 months. Vancomycin day 11 as discussed above. Given persistent bacteremia patient may need an extended course of IV antibiotics, likely at least 2 weeks after negative blood cultures , possibly 4 weeks. Appreciate ID recommendations. (4) Acute blood loss anemia Current Visit: Yes Status: Resolved 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 plan: Hemoglobin was 9.5 today, received 2 units of blood yesterday with dialysis. Likely related to bleeding after temporary dialysis line removed. No more active bleeding noted. (5) Central line-associated bloodstream infection Current Visit: Yes Status: Acute Qualifiers: Encounter type: initial encounter Qualified Code(s): T80.211A - Bloodstream infection due to central venous catheter, initial encounter (6) ESRD (end stage renal disease) Current Visit: No Status: Acute 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 plan: Continue with Friday, Friday, Friday dialysis through temporary HD line placed at this hospitalization. Patient will need more permanent access for hemodialysis once bloodstream infection clears as discussed above. Nephrology following. (7) Hypertension Current Visit: No Status: Acute Qualifiers: Hypertension type: essential hypertension Qualified Code(s): I10 - Essential (primary) hypertension (8) Chronic respiratory failure with hypoxia Current Visit: Yes Status: Acute 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 plan: Patient uses 2 L of oxygen at night. Patient's oxygen had been increased. Given concerns for altered mental status and possible hypercapnia will turn down the patient's oxygen to 2 L and maintain. - Subjective Interval history: Patient seen and examined at bedside. Patient has no complaints at this time. Patient's mental status appears to be at baseline. Patient denies chest pain, shortness of breath, abdominal pain, nausea, vomiting. - Constitutional Vitals: Temp Pulse Resp BP Pulse Ox 97.9 F 62 18 143/72 95 05/17/17 10:39 05/17/17 10:39 05/17/17 10:39 05/17/17 10:39 05/17/17 10:39 General appearance: Present: disheveled, A&O X 3, no acute distress, answers questions appropriately - Respiratory Respiratory exam: Present: CTAB. Absent: rales, rhonchi, wheezes - Cardiovascular Cardiovascular exam: Present: RRR. Absent: gallop, rubs, systolic murmur - GI/Abdominal GI/Abdominal exam: Present: normal bowel sounds, soft. Absent: distended, tenderness - Neurological Exam Neurological exam: Present: alert, CN II-XII intact, oriented X3, no focal deficits Internal Medicine: Result - Labs CBC & Chem 7: 05/17/17 00:07 05/17/17 00:07 Labs: Short CBC 05/17/17 Range/Units 00:07 WBC 11.2 H (4.3-11.1) K/mcL Hgb 9.5 L D (12.9-16.9) g/dL Hct 28.7 L (37.5-50.1) % Plt Count 179 (140-400) K/mcL Neutrophils # 8.5 (1.6-8.9) K/mcL BMP 05/17/17 00:07 Sodium 134 L Potassium 3.2 L D Chloride 100 Carbon Dioxide 26 BUN 11 D Creatinine 2.51 H D Glucose 94 Calcium 8.2 L - ABG Interpretation ABG results: ABG ABG pH 7.40 pH Units (7.32-7.45) 05/15/17 13:15 ABG pCO2 45 mmHg (35-45) 05/15/17 13:15 ABG pO2 71 mmHg (85-104) L 05/15/17 13:15 ABG O2 Saturation 94 % (95-98) L 05/15/17 13:15 PT/INR, D-dimer PT 12.4 Seconds (9.4-12.1) H 05/15/17 13:46 - Impressions Impressions Guidance Needle Placement Ultrasound 05/16/17 00:00 IMPRESSION: Successful ultrasound guided non-tunneled temporary hemodialysis catheter placement. D/ / Fred Ceja MD / Fred Ceja MD Interpreting Provider: Fred Ceja MD Insertion Non-Tunneled Catheter 05/16/17 00:00 IMPRESSION: Successful ultrasound guided non-tunneled temporary hemodialysis catheter placement. D/ / Fred Ceja MD / Fred Ceja MD Interpreting Provider: Fred Ceja MD Consult Discharge Plan - Plan Referrals: Nallely Hanna CNP [Primary Care Provider] - 05/22/17 10:00 am (Please follow up as schedule..) Fariba Cross CNP [Advanced Practice Nurse] - 05/19/17 8:00 am <Dylan Caceres - Last Filed: 05/17/17 18:38> Date of Encounter: 05/17/17 - 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 plan (1) Septicemia due to methicillin resistant Staphylococcus aureus Current Visit: Yes Status: Acute (2) Central line-associated bloodstream infection Current Visit: Yes Status: Acute Qualifiers: Encounter type: subsequent encounter Qualified Code(s): T80.211D - Bloodstream infection due to central venous catheter, subsequent encounter (3) COPD (chronic obstructive pulmonary disease) with chronic bronchitis Current Visit: Yes Status: Acute (4) Chronic respiratory failure with hypoxia Current Visit: Yes Status: Acute (5) ESRD (end stage renal disease) on dialysis Current Visit: Yes Status: Acute (6) Acute encephalopathy Current Visit: Yes Status: Resolved (7) Anemia in chronic kidney disease Current Visit: No Status: Chronic Qualifiers: Chronic kidney disease stage: on chronic dialysis Qualified Code(s): N18.6 - End stage renal disease; D63.1 - Anemia in chronic kidney disease; Z99.2 - Dependence on renal dialysis (8) Nicotine addiction Current Visit: Yes Status: Acute Qualifiers: Nicotine product type: chewing tobacco Substance use status: in withdrawal Qualified Code(s): F17.223 - Nicotine dependence, chewing tobacco, with withdrawal - Constitutional Vitals: Temp Pulse Resp BP Pulse Ox 97.5 F L 57 18 95/48 97 05/17/17 16:04 05/17/17 16:04 05/17/17 16:04 05/17/17 16:04 05/17/17 16:04 Internal Medicine: Result - Labs CBC & Chem 7: 05/17/17 00:07 05/17/17 00:07 Labs: Short CBC 05/17/17 Range/Units 00:07 WBC 11.2 H (4.3-11.1) K/mcL Hgb 9.5 L D (12.9-16.9) g/dL Hct 28.7 L (37.5-50.1) % Plt Count 179 (140-400) K/mcL Neutrophils # 8.5 (1.6-8.9) K/mcL BMP 05/17/17 00:07 Sodium 134 L Potassium 3.2 L D Chloride 100 Carbon Dioxide 26 BUN 11 D Creatinine 2.51 H D Glucose 94 Calcium 8.2 L - ABG Interpretation ABG results: ABG ABG pH 7.40 pH Units (7.32-7.45) 05/15/17 13:15 ABG pCO2 45 mmHg (35-45) 05/15/17 13:15 ABG pO2 71 mmHg (85-104) L 05/15/17 13:15 ABG O2 Saturation 94 % (95-98) L 05/15/17 13:15 PT/INR, D-dimer PT 12.4 Seconds (9.4-12.1) H 05/15/17 13:46 - Attending Attestation I examined this patient and my medical decision-making was reviewed with the Resident Physician on 05/17/17. I agree with the documented findings, disposition and treatment plan as described except to the extent set forth below. Mr Castro is currently admitted for sepsis related to MRSA bacteremia from infected dialysis catheter. He remains moderate to high risk due to potential of further infectious issues. Mr. Castro is upset today. He is not allowed to chew snuff. No fever or chills. No GI issues. Blood cx remain neg thus far. Exam Alert. Comfortable Mucus membranes dry Heart reg No wheeze Abd soft I/P 1. sepsis from MRSA CLABSI - present on admission 2. ESRD Further diagnoses and plan as above.
--- NOTE | 2017-05-17 12:36 | Nephrology Progress Note ---
Date of Encounter: 05/17/17 Time of Encounter: 12:34 - 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 Plan (1) ESRD (end stage renal disease) on dialysis Current Visit: Yes Status: Acute New temp line placed Plan for HD Friday Once blood cultures return negative will have new permacath placed--hopefully Friday Continue renal diet Avoid nephrotoxins if possible (2) COPD (chronic obstructive pulmonary disease) with chronic bronchitis Current Visit: Yes Status: Acute per primary team (3) Sepsis associated hypotension Current Visit: Yes Status: Acute per infectious disease team (4) Hyponatremia Current Visit: No Status: Acute Improving-Na+ 134 Subjective Principal diagnosis: ESRD, Hyponatremia, Bacteremia Interval history: Patient seen and examined. States he doesn't feel well today; nurse reports liquid stools. Objective - Vital Signs Vital signs: Vital Signs Temp Pulse Resp BP Pulse Ox 05/17/17 10:39 97.9 F 62 18 143/72 95 05/17/17 06:49 98.1 F 58 18 138/77 99 05/17/17 04:41 98.6 F 72 16 158/81 96 05/16/17 23:39 98.9 F 70 16 145/71 96 05/16/17 23:26 18 95 05/16/17 22:28 98.3 F 20 139/78 05/16/17 22:00 139/86 05/16/17 21:45 141/82 05/16/17 21:30 140/70 05/16/17 21:15 163/80 05/16/17 21:10 98.4 F 73 20 149/82 05/16/17 21:00 132/94 05/16/17 20:45 159/81 05/16/17 20:35 98.1 F 71 18 149/74 05/16/17 20:30 144/76 05/16/17 20:20 97.9 F 69 18 144/76 05/16/17 20:15 97.9 F 70 20 146/73 05/16/17 20:00 144/77 05/16/17 19:45 141/58 05/16/17 19:35 98.7 F 18 118/69 05/16/17 19:30 161/81 05/16/17 19:20 98.5 F 74 18 144/77 05/16/17 19:15 133/72 05/16/17 19:00 155/85 05/16/17 18:45 149/86 05/16/17 18:30 97.9 F 18 137/79 05/16/17 15:01 97.7 F 97 14 152/77 96 Intake and Output 05/16/17 05/17/17 05/17/17 23:59 07:59 15:59 Intake Total 1999 0 / 0 Output Total 4450 / 4450 Balance -2450 / -2450 0 / 0 Intake: Oral 0 / 0 0 / 0 Blood Product 1400 / 1400 Rbcs Leuko Poor As-1 700 / 700 Unit [id number] Rbcs Leuko Poor As-1 700 / 700 Unit [id number] Intake, Rinseback and 600 / 600 Flushes Output: Urine 150 / 150 Total Dialysis (HD) 4300 / 4300 Output Other: Meal npo Percent of Meal Consumed 0% Stool Size Large Large Stool Consistency liquid liquid Stool Color Green Green Black Black Weight 78.109 kg 73.482 kg Hemodialysis Net Fluid 3000 Removed (mL) Patient Weight 05/17/17 23:59 Weight 73.482 kg - General Appearance General appearance: Present: well-developed, well-nourished EENT: Present: ATNC, mucous membranes moist, hearing intact, vision intact Neck: Present: supple Respiratory: Present: clear Cardiology: Present: no edema, normal S1, normal S2 Dialysis Vascular Access: Venous Catheter Gastrointestinal: Present: no tenderness, no guarding Integumentary: Present: warm and dry Neurologic: Present: alert and oriented x3 (flat affect) Psychiatric: Present: depressed, cooperative - Lab 05/17/17 00:07 05/17/17 00:07 Most recent lab results ABG pH 7.40 pH Units (7.32-7.45) 05/15/17 13:15 ABG pCO2 45 mmHg (35-45) 05/15/17 13:15 ABG pO2 71 mmHg (85-104) L 05/15/17 13:15 ABG HCO3 27.9 mEQ/L (21-27) H 05/15/17 13:15 ABG O2 Saturation 94 % (95-98) L 05/15/17 13:15 Calcium 8.2 mg/dL (8.6-10.8) L 05/17/17 00:07 Phosphorus 2.2 mg/dL (2.3-4.7) L 05/12/17 05:15 Magnesium 1.7 mg/dL (1.6-2.6) 05/17/17 00:07 Consult Discharge Plan - Plan Referrals: Nallely Hanna BACKBREAKER [Primary Care Provider] - 05/22/17 10:00 am (Please follow up as schedule..) Fariba Cross BACKBREAKER [Advanced Practice Nurse] - 05/19/17 8:00 am
[2017-05-17] MEDS ORDERED: Sennosides/Docusate Sodium TABLET PO PRN (12:45)
[2017-05-18] MEDS: Ipratropium/Albuterol Neb 3 ML IH SCH ×5 (04:00→19:53)
[2017-05-18] MEDS: *HR* Heparin 5,000 UNIT/ML VIAL SQ SCH ×3 (04:58→22:16)
[2017-05-18] MEDS: *HR* Alteplase (Cathflo) 2 MG VIAL IVP ONE ×2 (05:06→19:43)
[2017-05-18 05:44] LABS: Basophils % 0.3 %; Eosinophils # 0.1 K/mcL (0.0-0.6); Eosinophils % 0.9 %; Hematocrit 25.9 % (37.5-50.1); Hemoglobin 8.5 g/dL (12.9-16.9); Immature Granulocytes % 4.6 % (0-4); Lymphocytes # 2.6 K/mcL (0.6-4.6); Lymphocytes % 24.3 %; Mean Corpuscular HGB Conc 32.8 g/dL (31.6-35.5); Mean Corpuscular Hemoglobin 29.1 pg (28.0-33.3); Mean Corpuscular Volume 88.7 fL (83.0-100.0); Mean Platelet Volume 10.4 fL (9.4-12.4); Monocytes # 0.9 K/mcL (0.0-1.3); Monocytes % 8.3 %; Neutrophils # 6.5 K/mcL (1.6-8.9); Platelet Count 201 K/mcL (140-400); Red Blood Count 2.92 M/mcL (4.19-5.50); Red Cell Distribution Width 14.2 % (11.5-14.5); Segmented Neutrophils % 61.6 %
[2017-05-18 05:56] LABS: Calcium 8.2 mg/dL (8.6-10.8); Magnesium 1.4 mg/dL (1.6-2.6); Potassium 3.2 mEq/L (3.5-4.5)
--- NOTE | 2017-05-18 07:45 | Internal Med Progress Note ---
<Tayler Clarke - Last Filed: 05/18/17 12:31> Date of Encounter: 05/18/17 Time of Encounter: 07:43 - 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 plan (1) Septicemia due to methicillin resistant Staphylococcus aureus Current Visit: Yes Status: Acute 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 plan: MRSA bacteremia in the setting of infected dialysis catheter. Blood cultures were persistently positive for 3 draws, repeat blood cultures drawn 05/14 are negative. ROSITA negative for vegetation. This the patient's third episode in the last 6 months. Vancomycin day 12. Given persistent bacteremia patient may need an extended course of IV antibiotics, likely at least 2 weeks after negative blood cultures , possibly 4 weeks. Appreciate ID recommendations. Plan: -Continue vanc (2) Severe sepsis Current Visit: Yes Status: Acute 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 plan: Related to MRSA bacteremia in the setting of infected dialysis catheter. Plan as above. (3) Acute encephalopathy Current Visit: Yes Status: Resolved 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 plan: Likely related to severe sepsis on presentation possibly exacerbated by hypotension postdialysis. Resolved at this time. We will continue to monitor. (4) Central line-associated bloodstream infection Current Visit: Yes Status: Acute Qualifiers: Encounter type: subsequent encounter Qualified Code(s): T80.211D - Bloodstream infection due to central venous catheter, subsequent encounter (5) Acute blood loss anemia Current Visit: Yes Status: Resolved 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 plan: Hemoglobin was 8.5, down from 9.5 8, received 2 units of blood 05/16 with dialysis. Likely related to bleeding after temporary dialysis line removed. No more active bleeding noted. Will continue to monitor. (6) ESRD (end stage renal disease) on dialysis Current Visit: Yes Status: Acute 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 plan: Nephrology following, appreciate their recommendations HD MWF Temporary dialysis catheter placed yesterday. (7) Chronic respiratory failure with hypoxia Current Visit: Yes Status: Acute 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 plan: Patient uses 2 L of oxygen at night. Patient's oxygen had been increased. Given concerns for altered mental status and possible hypercapnia will turn down the patient's oxygen to 2 L and maintain. (8) HTN (hypertension) Current Visit: No Status: Chronic Qualifiers: Hypertension type: renovascular hypertension Qualified Code(s): I15.0 - Renovascular hypertension - Subjective Interval history: Patient seen and examined, resting comfortably in bed. He denies any CP, SOB or any other complaints at this time. - Constitutional Vitals: Temp Pulse Resp BP Pulse Ox 97.5 F L 58 18 124/65 97 05/18/17 06:55 05/18/17 06:55 05/18/17 06:55 05/18/17 06:55 05/18/17 06:55 General appearance: Present: disheveled, A&O X 3, no acute distress, answers questions appropriately - Head Head exam: Present: atraumatic, normocephalic - Respiratory Respiratory exam: Present: CTAB. Absent: accessory muscle use, rales, respiratory distress, rhonchi, wheezes - Cardiovascular Cardiovascular exam: Present: RRR, +S1, +S2. Absent: diastolic murmur, gallop, rubs, systolic murmur - GI/Abdominal GI/Abdominal exam: Present: normal bowel sounds, soft, no peritoneal signs. Absent: distended, tenderness - Extremities Exam Extremities exam: Present: normal capillary refill, warm, radial pulses palpable and symetrical. Absent: calf tenderness, cyanotic, pedal edema - Neurological Exam Neurological exam: Present: oriented X3, no focal deficits. Absent: facial droop, speech deficit - Psychiatric Psychiatric exam: Present: normal affect, normal mood - Skin Skin exam: Present: dry, intact, warm Internal Medicine: Result - Labs CBC & Chem 7: 05/18/17 05:20 05/18/17 05:20 Labs: Short CBC 05/18/17 Range/Units 05:20 WBC 10.5 (4.3-11.1) K/mcL Hgb 8.5 L (12.9-16.9) g/dL Hct 25.9 L (37.5-50.1) % Plt Count 201 (140-400) K/mcL Neutrophils # 6.5 (1.6-8.9) K/mcL BMP 05/18/17 05:20 Sodium 126 L D Potassium 3.2 L Chloride 95 L Carbon Dioxide 24 BUN 19 Creatinine 4.37 H D Glucose 78 Calcium 8.2 L - ABG Interpretation ABG results: ABG ABG pH 7.40 pH Units (7.32-7.45) 05/15/17 13:15 ABG pCO2 45 mmHg (35-45) 05/15/17 13:15 ABG pO2 71 mmHg (85-104) L 05/15/17 13:15 ABG O2 Saturation 94 % (95-98) L 05/15/17 13:15 PT/INR, D-dimer PT 12.4 Seconds (9.4-12.1) H 05/15/17 13:46 Consult Discharge Plan - Plan Referrals: Nallely Hanna CNP [Primary Care Provider] - 05/22/17 10:00 am (Please follow up as schedule..) Fariba Cross CNP [Advanced Practice Nurse] - 05/19/17 8:00 am <Dylan Caceres - Last Filed: 05/18/17 14:18> Date of Encounter: 05/18/17 - 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 plan (1) Septicemia due to methicillin resistant Staphylococcus aureus Current Visit: Yes Status: Acute (2) Central line-associated bloodstream infection Current Visit: Yes Status: Acute Qualifiers: Encounter type: subsequent encounter Qualified Code(s): T80.211D - Bloodstream infection due to central venous catheter, subsequent encounter (3) COPD (chronic obstructive pulmonary disease) with chronic bronchitis Current Visit: Yes Status: Acute (4) Chronic respiratory failure with hypoxia Current Visit: Yes Status: Acute (5) ESRD (end stage renal disease) on dialysis Current Visit: Yes Status: Acute (6) Anemia in chronic kidney disease Current Visit: No Status: Chronic Qualifiers: Chronic kidney disease stage: on chronic dialysis Qualified Code(s): N18.6 - End stage renal disease; D63.1 - Anemia in chronic kidney disease; Z99.2 - Dependence on renal dialysis (7) Nicotine addiction Current Visit: Yes Status: Acute Qualifiers: Nicotine product type: chewing tobacco Substance use status: in withdrawal Qualified Code(s): F17.223 - Nicotine dependence, chewing tobacco, with withdrawal - Constitutional Vitals: Temp Pulse Resp BP Pulse Ox 97.5 F L 56 18 95/59 98 05/18/17 11:00 05/18/17 11:00 05/18/17 11:00 05/18/17 11:00 05/18/17 11:00 Internal Medicine: Result - Labs CBC & Chem 7: 05/18/17 05:20 05/18/17 05:20 Labs: Short CBC 05/18/17 Range/Units 05:20 WBC 10.5 (4.3-11.1) K/mcL Hgb 8.5 L (12.9-16.9) g/dL Hct 25.9 L (37.5-50.1) % Plt Count 201 (140-400) K/mcL Neutrophils # 6.5 (1.6-8.9) K/mcL BMP 05/18/17 05:20 Sodium 126 L D Potassium 3.2 L Chloride 95 L Carbon Dioxide 24 BUN 19 Creatinine 4.37 H D Glucose 78 Calcium 8.2 L - ABG Interpretation ABG results: ABG ABG pH 7.40 pH Units (7.32-7.45) 05/15/17 13:15 ABG pCO2 45 mmHg (35-45) 05/15/17 13:15 ABG pO2 71 mmHg (85-104) L 05/15/17 13:15 ABG O2 Saturation 94 % (95-98) L 05/15/17 13:15 PT/INR, D-dimer PT 12.4 Seconds (9.4-12.1) H 05/15/17 13:46 - Attending Attestation I examined this patient and my medical decision-making was reviewed with the Resident Physician on 05/18/17. I agree with the documented findings, disposition and treatment plan as described except to the extent set forth below. Mr. Castro is currently admitted for CLABSI related to dialysis catheter and due to MRSA. He remains moderate to high risk due to potential for worsening infectious complications. Mr. Castro is complaining about his phone. No fever or chills. Last set of blood cultures have been negative. No GI issues. Exam Alert Comfortable Mucus membranes moist Heart reg No wheeze Abd soft I/P 1. Sepsis due to MRSA CLABSI 2. ESRD Will make NPO tonight anticipating catheter placement tomorrow.
[2017-05-18] MEDS: Budesonide/Formoterol 80/4.5 MDI IH SCH ×2 (08:04→19:53)
[2017-05-18] MEDS: Aspirin 81 MG TAB.CHEW PO SCH (08:57)
[2017-05-18] MEDS: Isosorbide MONOnitrate (24 HR) 30 MG TAB.ER.24H PO SCH (08:57)
[2017-05-18] MEDS: Nicotine 21 MG PATCH.TD24 TD SCH (08:57)
[2017-05-18] MEDS: BuPROPion SR (12 HR) 150 MG TABLET PO SCH ×2 (08:58→22:13)
[2017-05-18] MEDS: Furosemide 40 MG TABLET PO SCH ×2 (08:58→16:10)
[2017-05-18] MEDS: hydrOXYzine pamoate 25 MG CAPSULE PO SCH ×3 (08:58→22:13)
[2017-05-18] MEDS: Gabapentin 400 MG CAPSULE PO SCH ×3 (08:58→22:14)
[2017-05-18] MEDS: tiZANidine 4 MG TABLET PO SCH ×3 (08:58→22:13)
[2017-05-18] MEDS: Ondansetron ODT 4 MG TAB.RAPDIS PO SCH ×2 (08:58→22:15)
--- NOTE | 2017-05-18 10:16 | Nephrology Progress Note ---
Date of Encounter: 05/18/17 Time of Encounter: 10:15 - 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 Plan (1) ESRD (end stage renal disease) on dialysis Current Visit: Yes Status: Acute HD tomorrow is planned but so is the Permacath placement. NPO on Friday night for Friday Permacath. Hyponatremia, chronic and hypervolemic in etiology. Hypokalemia: continue oral replacement. Anemia of CKD: transfusion parameters as per primary (2) Bacteremia Current Visit: Yes Status: Acute Antibiotics. Appreciated the primary team and ID. (3) Hyponatremia Current Visit: No Status: Acute Improving: Fluid restriction. Will plan for fluid removal with HD tomrrow to help control his volume status which then helps treat the hypervolemic hyponatremia. (4) Hypokalemia Current Visit: No Status: Resolved Agree with repleting the hypokalemia. Agree with the oral KCl Subjective Principal diagnosis: ESRD, Hyponatremia, Bacteremia Interval history: Pt was s/e. He did not affirm N/V/D or uremic symptoms. Eating well, he affirmed. Objective - Vital Signs Vital signs: Vital Signs Temp Pulse Resp BP Pulse Ox 05/18/17 06:55 97.5 F L 58 18 124/65 97 05/18/17 04:19 98.0 F 68 16 168/84 99 05/17/17 23:16 98.9 F 56 18 138/78 98 05/17/17 19:22 97.8 F 62 16 103/68 98 05/17/17 16:04 97.5 F L 57 18 95/48 97 05/17/17 10:39 97.9 F 62 18 143/72 95 Intake and Output 05/17/17 05/18/17 05/18/17 23:59 07:59 15:59 Intake Total 120 / 120 Balance 120 / 120 Intake: Oral 120 / 120 Other: Meal Breakfast Percent of Meal Consumed 10% Stool Size Moderate Stool Consistency liquid Stool Color Green # Bowel Movements 1 Weight 74.843 kg - General Appearance Exam: General appearance: Present: well-developed, well-nourished EENT: Present: ATNC, mucous membranes moist, hearing intact, vision intact Neck: Present: supple Respiratory: Present: clear Cardiology: Present: no edema, normal S1, normal S2 Dialysis Vascular Access: Venous Catheter in femoral vein with the dressing C/D/ I Gastrointestinal: Present: no tenderness, no guarding Integumentary: Present: warm and dry Neurologic: Present: alert and oriented x3 (flat affect) Psychiatric: Present: depressed, cooperative - Lab 05/18/17 05:20 05/18/17 05:20 Most recent lab results ABG pH 7.40 pH Units (7.32-7.45) 05/15/17 13:15 ABG pCO2 45 mmHg (35-45) 05/15/17 13:15 ABG pO2 71 mmHg (85-104) L 05/15/17 13:15 ABG HCO3 27.9 mEQ/L (21-27) H 05/15/17 13:15 ABG O2 Saturation 94 % (95-98) L 05/15/17 13:15 Calcium 8.2 mg/dL (8.6-10.8) L 05/18/17 05:20 Phosphorus 2.2 mg/dL (2.3-4.7) L 05/12/17 05:15 Magnesium 1.4 mg/dL (1.6-2.6) L 05/18/17 05:20 Consult Discharge Plan - Plan Referrals: Nallely Hanna CNP [Primary Care Provider] - 05/22/17 10:00 am (Please follow up as schedule..) Fariba Cross CNP [Advanced Practice Nurse] - 05/19/17 8:00 am
[2017-05-18] MEDS: Acetaminophen 325 MG TABLET PO PRN (22:15)
[2017-05-19] MEDS: Ipratropium/Albuterol Neb 3 ML IH SCH ×7 (00:31→23:56)
[2017-05-19 04:38] LABS: Potassium 3.6 mEq/L (3.5-4.5)
[2017-05-19 04:56] LABS: Basophils % 0.4 %; Eosinophils # 0.1 K/mcL (0.0-0.6); Eosinophils % 1.1 %; Hematocrit 24.1 % (37.5-50.1); Hemoglobin 8.1 g/dL (12.9-16.9); Immature Granulocytes % 2.5 % (0-4); Lymphocytes # 2.7 K/mcL (0.6-4.6); Lymphocytes % 26.1 %; Mean Corpuscular HGB Conc 33.6 g/dL (31.6-35.5); Mean Corpuscular Hemoglobin 29.1 pg (28.0-33.3); Mean Corpuscular Volume 86.7 fL (83.0-100.0); Mean Platelet Volume 10.6 fL (9.4-12.4); Monocytes # 0.7 K/mcL (0.0-1.3); Monocytes % 6.5 %; Neutrophils # 6.5 K/mcL (1.6-8.9); Platelet Count 200 K/mcL (140-400); Red Blood Count 2.78 M/mcL (4.19-5.50); Red Cell Distribution Width 14.1 % (11.5-14.5); Segmented Neutrophils % 63.4 %
[2017-05-19] MEDS: *HR* Heparin 5,000 UNIT/ML VIAL SQ SCH ×3 (05:24→20:07)
[2017-05-19] MEDS ORDERED: 0.9 % Sodium Chloride 250 ML IVC PRN (05:48)
[2017-05-19 05:55] LABS: Prothrombin Time 11.3 Seconds (9.4-12.1)
[2017-05-19] MEDS: Budesonide/Formoterol 80/4.5 MDI IH SCH ×2 (07:29→20:02)
[2017-05-19] MEDS: Ondansetron ODT 4 MG TAB.RAPDIS PO SCH ×2 (08:06→20:05)
[2017-05-19] MEDS: Gabapentin 400 MG CAPSULE PO SCH (08:06)
[2017-05-19] MEDS: Furosemide 40 MG TABLET PO SCH ×2 (08:07→16:00)
[2017-05-19] MEDS: hydrOXYzine pamoate 25 MG CAPSULE PO SCH ×3 (08:07→20:05)
[2017-05-19] MEDS: BuPROPion SR (12 HR) 150 MG TABLET PO SCH ×2 (08:07→20:05)
[2017-05-19] MEDS: Isosorbide MONOnitrate (24 HR) 30 MG TAB.ER.24H PO SCH (08:07)
[2017-05-19] MEDS: tiZANidine 4 MG TABLET PO SCH ×3 (08:08→20:05)
[2017-05-19] MEDS: Aspirin 81 MG TAB.CHEW PO SCH (08:08)
[2017-05-19] MEDS: Nicotine 21 MG PATCH.TD24 TD SCH (08:09)
[2017-05-19] MEDS ORDERED: Heparin 1,000 UNITS/500 mL NS 500 ML ONE (12:16)
--- NOTE | 2017-05-19 12:23 | Infectious Disease Progress No ---
Date of Encounter: 05/19/17 Time of Encounter: 12:19 - 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 Plan (1) Severe sepsis Current Visit: Yes Status: Acute The patient had two SIRS criteria plus hypotension responsive to IV fluids. He also had lactic acidosis. Likely secondary to bacteremia. Resolved. Hypotension resolved. WBC has normalized and bandemia have resolved. Lactic acid improved. Peripheral blood cultures drawn 05/07/17 are positive 2/2 sets for MRSA. Blood cultures drawn from the TDC are positive x 2 sets. Additional peripheral blood cultures x 2 sets drawn 05/12/17 are positive 1/2 sets. Repeat blood cultures x 2 sets drawn 05/14/17 are negative. (2) Bacteremia Current Visit: Yes Status: Acute Causative organism MRSA. Source likely the TDC. Clinically, it did not appear infected. Complicated due to persistent bacteremia. Patient had a previous MRSA bacteremia from a previous temporary dialysis catheter treated with IV Vanc at the dialysis center. Previous TDC removed with the insertion of a new line the same day. Peripheral blood cultures drawn 05/07/17 are positive 2/2 sets for MRSA. Blood cultures drawn from the TDC are positive x 2 sets as well. Additional peripheral blood cultures drawn 05/12/17 are positive 1/2 sets. Repeat blood cultures drawn 05/14/17 are negative x 2 sets. No endocarditis stigmata noted on exam. The patient has one major and one minor Modified Buitrago's criteria. TTE negative for valvular vegetations. ROSITA negative. Okay to insert new tunneled dialysis catheter when okay with IR and nephrology. Continue Vancomycin IV. Pharmacy to dose. Goal trough approximately 15. Duration of treatment depends on the clinical picture, but we may need to continue treatment for four weeks from the first set of negative blood cultures. Treat through 06/11/17. Monitor for drug toxicity and dose-adjust antibiotics. Get weekly CBC and Vanc troughs for the duration of treatment. Follow up with ID 06/03/17 at 0930. (3) Central line-associated bloodstream infection Current Visit: Yes Status: Acute Secondary to infected tunneled dialysis catheter. Causative organism MRSA. TDC removed 05/09/17. Qualifiers: Encounter type: subsequent encounter Qualified Code(s): T80.211D - Bloodstream infection due to central venous catheter, subsequent encounter (4) Pneumonia Current Visit: Yes Status: Resolved Location: Right lower lobe. Causative organism unclear. Get sputum culture if patient is able to give an adequate specimen. S. pneumo and Legionella UAT negative. Treated with Rocephin x 8 days. Vancomycin continued for bacteremia. Qualifiers: Pneumonia type: due to unspecified organism Laterality: right Lung location: lower lobe of lung Qualified Code(s): J18.1 - Lobar pneumonia, unspecified organism (5) Lactic acidosis Current Visit: Yes Status: Resolved Lactic acid elevated at 8.6 on admission. Likely secondary to sepsis. Improved. Repeat lactic acid 2.6. (6) Hyponatremia Current Visit: No Status: Acute Serum sodium 125 this morning. Likely secondary to hypervolemia. Management per the primary and nephrology teams. (7) COPD (chronic obstructive pulmonary disease) Current Visit: No Status: Chronic Qualifiers: COPD type: unspecified COPD Qualified Code(s): J44.9 - Chronic obstructive pulmonary disease, unspecified (8) ESRD (end stage renal disease) on dialysis Current Visit: No Status: Chronic Nephrology consulted and following. - Subjective Interval history: Patient seen and examined. Weekend notes reviewed. No acute events noted overnight. Patient awake, alert, oriented. States he went to HD, but was sent back early because his line wasn't working. Denies pain, fevers, or chills. Denies nausea, vomiting, or diarrhea. Complains of abdominal pain this morning, worse on the right. Reports last BM this morning. Denies urinary complaints. Denies oral thrush or rashes. Infect Dis PN-Objective Data - Labs CBC & Chem 7: 05/19/17 04:00 05/19/17 04:00 Labs: Laboratory Results - last 24 hr 05/19/17 05/19/17 05/19/17 04:00 04:00 04:00 WBC 10.2 RBC 2.78 L Hgb 8.1 L Hct 24.1 L MCV 86.7 MCH 29.1 MCHC 33.6 RDW 14.1 Plt Count 200 MPV 10.6 Immature Gran % 2.5 Seg Neutrophils % 63.4 Lymphocytes % 26.1 Monocytes % 6.5 Eosinophils % 1.1 Basophils % 0.4 Neutrophils # 6.5 Lymphocytes # 2.7 Monocytes # 0.7 Eosinophils # 0.1 Basophils # 0.0 PT INR Sodium 125 L Potassium 3.6 Chloride 96 L Carbon Dioxide 21 BUN 26 Creatinine 5.28 H Est GFR ( Amer) 14 L Est GFR (Non-Af Amer) 12 L BUN/Creatinine Ratio 5 L Glucose 76 Calculated Osmolality 264 L Calcium 8.0 L Random Vancomycin 11.0 05/19/17 04:50 WBC RBC Hgb Hct MCV MCH MCHC RDW Plt Count MPV Immature Gran % Seg Neutrophils % Lymphocytes % Monocytes % Eosinophils % Basophils % Neutrophils # Lymphocytes # Monocytes # Eosinophils # Basophils # PT 11.3 INR 1.0 Sodium Potassium Chloride Carbon Dioxide BUN Creatinine Est GFR ( Amer) Est GFR (Non-Af Amer) BUN/Creatinine Ratio Glucose Calculated Osmolality Calcium Random Vancomycin Cultures: Cultures 05/12/17 08:38 Blood Culture - Final Peripheral Venipuncture Staphylococcus aureus 05/12/17 08:38 Blood Culture - Final Peripheral Venipuncture No growth. 05/14/17 13:59 Blood Culture - Preliminary Peripheral Venipuncture No growth. 05/14/17 13:54 Blood Culture - Preliminary Peripheral Venipuncture No growth. 05/08/17 00:10 Blood Culture - Final Central Venous Catheter Methicillin Resistant S.aureus 05/08/17 00:11 Blood Culture - Final Central Venous Catheter Methicillin Resistant S.aureus 05/08/17 00:25 Legionella Antigen - Final Urine,Random-Not Preferred Streptococcus pneumoniae Antigen (M - Final 05/08/17 00:25 Urine Culture - Final Urine,Clean Catch No growth. Serology 05/12/17 05/09/17 05/08/17 Range/Units 08:38 20:36 00:25 Urine Color Red A (Yellow) Urine Clarity Turbid A (Clear) Urine pH 6.0 (5.0-8.0) pH Units Ur Specific Dodson 1.028 H (1.010-1.025) Urine Protein >=1000 H (Neg-Trace) mg/dL Urine Glucose (UA) 250 H (Normal) mg/dL Urine Ketones Trace H (Negative) mg/dL Urine Blood Large H (Negative) Urine Nitrite Negative (Negative) Urine Bilirubin Small H (Negative) Urine Urobilinogen Normal (Normal) mg/dL Ur Leukocyte Esterase Small H (Negative) Urine Microscopic RBC TNTC H (0-3) per hpf Urine Microscopic WBC 50-100 H (0-3) per hpf Ur Squamous Epith Cells Many H (None-Few) per lpf Urine Bacteria None Seen (None-Few) per hpf Hyaline Casts Few (None-Few) per lpf Ur Culture Indicated? YES A (NO) A. baumannii (PCR) Not Detected (Not Detect) Tashia albicans (PCR) Not Detected (Not Detect) C. glabrata (PCR) Not Detected (Not Detect) C. krusei (PCR) Not Detected (Not Detect) C. parapsilosis (PCR) Not Detected (Not Detect) C. tropicalis (PCR) Not Detected (Not Detect) Enterobacteriac sp PCR Not Detected (Not Detect) E. cloacae complex PCR Not Detected (Not Detect) Enterococcus sp PCR Not Detected (Not Detect) E. coli (PCR) Not Detected (Not Detect) H. influenzae (PCR) Not Detected (Not Detect) Hep Bs Antigen Nonreactive (Nonreactive) Hep Bs Antibody 69.32 mIU/mL Klebsiella oxytoca PCR Not Detected (Not Detect) Klebsiella pneumoniae Not Detected (Not Detect) List. monocytogenes PCR Not Detected (Not Detect) N. meningitidis (PCR) Not Detected (Not Detect) Proteus species (PCR) Not Detected (Not Detect) Serratia marcescens PCR Not Detected (Not Detect) Staphylococcus sp PCR DETECTED A (Not Detect) Staph aureus (PCR) DETECTED A (Not Detect) mecA-Methicil Res Gene DETECTED A (Not Detect) Streptococcus sp PCR Not Detected (Not Detect) Group A Strep DNA Not Detected (Not Detect) Group B Strep (PCR) Not Detected (Not Detect) Strep pneumoniae (PCR) Not Detected (Not Detect) P. aeruginosa (PCR) Not Detected (Not Detect) Britta/B-Vanco Res Genes N/A (Not Detect) KPC (blaKPC) Detect PCR N/A (Not Detect) 05/08/17 Range/Units 00:11 Urine Color (Yellow) Urine Clarity (Clear) Urine pH (5.0-8.0) pH Units Ur Specific Dodson (1.010-1.025) Urine Protein (Neg-Trace) mg/dL Urine Glucose (UA) (Normal) mg/dL Urine Ketones (Negative) mg/dL Urine Blood (Negative) Urine Nitrite (Negative) Urine Bilirubin (Negative) Urine Urobilinogen (Normal) mg/dL Ur Leukocyte Esterase (Negative) Urine Microscopic RBC (0-3) per hpf Urine Microscopic WBC (0-3) per hpf Ur Squamous Epith Cells (None-Few) per lpf Urine Bacteria (None-Few) per hpf Hyaline Casts (None-Few) per lpf Ur Culture Indicated? (NO) A. baumannii (PCR) Not Detected (Not Detect) Tashia albicans (PCR) Not Detected (Not Detect) C. glabrata (PCR) Not Detected (Not Detect) C. krusei (PCR) Not Detected (Not Detect) C. parapsilosis (PCR) Not Detected (Not Detect) C. tropicalis (PCR) Not Detected (Not Detect) Enterobacteriac sp PCR Not Detected (Not Detect) E. cloacae complex PCR Not Detected (Not Detect) Enterococcus sp PCR Not Detected (Not Detect) E. coli (PCR) Not Detected (Not Detect) H. influenzae (PCR) Not Detected (Not Detect) Hep Bs Antigen (Nonreactive) Hep Bs Antibody mIU/mL Klebsiella oxytoca PCR Not Detected (Not Detect) Klebsiella pneumoniae Not Detected (Not Detect) List. monocytogenes PCR Not Detected (Not Detect) N. meningitidis (PCR) Not Detected (Not Detect) Proteus species (PCR) Not Detected (Not Detect) Serratia marcescens PCR Not Detected (Not Detect) Staphylococcus sp PCR DETECTED A (Not Detect) Staph aureus (PCR) DETECTED A (Not Detect) mecA-Methicil Res Gene DETECTED A (Not Detect) Streptococcus sp PCR Not Detected (Not Detect) Group A Strep DNA Not Detected (Not Detect) Group B Strep (PCR) Not Detected (Not Detect) Strep pneumoniae (PCR) Not Detected (Not Detect) P. aeruginosa (PCR) Not Detected (Not Detect) Britta/B-Vanco Res Genes Not Detected (Not Detect) KPC (blaKPC) Detect PCR Not Detected (Not Detect) Exam - Constitutional Vitals: Temp Pulse Resp BP Pulse Ox 97.9 F 54 16 117/64 100 05/19/17 11:49 05/19/17 11:49 05/19/17 11:49 05/19/17 11:49 05/19/17 11:49 General appearance: average body habitus, cooperative, no acute distress - Head Head exam: Present: atraumatic, normal inspection, normocephalic - Eye Eye exam: Present: EOMI, normal appearance, PERRL Pupils: Present: normal accommodation Additional comments: No subconjunctival hemorrhage noted. - ENT ENT exam: Present: mucous membranes moist - Neck Neck exam: Present: normal inspection - Respiratory Respiratory exam: Present: CTAB. Absent: rales, respiratory distress, rhonchi, wheezes - Cardiovascular Cardiovascular exam: Present: RRR, +S1, +S2 - GI/Abdominal GI/Abdominal exam: Present: normal bowel sounds, soft, tenderness (RUQ, RLQ). Absent: distended - Extremities Exam Extremities exam: Absent: joint swelling, pedal edema, tenderness Additional comments: Venous stasis dermatitis noted to the BLE. - Neurological Exam Neurological exam: Present: alert, oriented X3, no focal deficits - Psychiatric Psychiatric exam: Present: normal affect, normal mood - Skin Skin exam: Present: dry, intact, normal color, warm Additional comments: No endocarditis stigmata noted. Consult Discharge Plan - Plan Referrals: Nallely Hanna CNP [Primary Care Provider] - 05/22/17 10:00 am (Please follow up as schedule..) Fariba Cross CNP [Advanced Practice Nurse] - 06/03/17 9:30 am - Attending Attestation I examined this patient and my medical decision-making was reviewed with the Resident Physician. I agree with the documented findings, disposition and treatment plan as described except to the extent set forth below.
--- NOTE | 2017-05-19 13:32 | Nephrology Progress Note ---
Date of Encounter: 05/19/17 Time of Encounter: 09:37 - 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 Plan (1) ESRD (end stage renal disease) on dialysis Current Visit: Yes Status: Acute Patient seen on dialysis. Unable to complete treatment secondary to access issue. Await tunneled catheter. Adjust medications for renal function. (2) Bacteremia Current Visit: Yes Status: Acute Per primary team and ID. (3) Hyponatremia Current Visit: No Status: Acute Should improve with dialysis. (4) HTN (hypertension) Current Visit: No Status: Chronic Blood pressure controlled. Qualifiers: Hypertension type: renovascular hypertension Qualified Code(s): I15.0 - Renovascular hypertension Subjective Principal diagnosis: ESRD, Hyponatremia, Bacteremia Interval history: Patient without new complaint. He was seen on dialysis. The femoral access was not working well. His review of systems was overall stable. Objective - Vital Signs Vital signs: Vital Signs Temp Pulse Resp BP Pulse Ox 05/19/17 11:49 97.9 F 54 16 117/64 100 05/19/17 09:45 97.1 F L 18 106/67 05/19/17 07:08 97.8 F 70 14 160/83 97 05/19/17 04:25 98.5 F 66 16 160/82 98 05/18/17 23:39 98.2 F 60 16 101/62 100 05/18/17 19:14 98.5 F 60 16 120/40 100 05/18/17 16:22 97.7 F 61 18 129/71 100 Intake and Output 05/18/17 05/19/17 05/19/17 23:59 07:59 15:59 Intake Total 600 / 600 Balance 600 / 600 Intake: Oral 0 / 0 Intake, Rinseback and 600 / 600 Flushes Other: Meal NPO Percent of Meal Consumed 0% Stool Size Small Stool Consistency liquid Stool Color Black # Bowel Movements 1 Weight 74.843 kg Hemodialysis Net Fluid 0 Removed (mL) Patient Weight 05/19/17 23:59 Weight 74.843 kg - General Appearance General appearance: Present: well-developed, well-nourished, chronically ill EENT: Present: ATNC Neck: Present: supple Neurologic: Present: alert and oriented x3 Psychiatric: Present: mood/affect appropriate - Lab 05/19/17 04:00 05/19/17 04:00 Most recent lab results ABG pH 7.40 pH Units (7.32-7.45) 05/15/17 13:15 ABG pCO2 45 mmHg (35-45) 05/15/17 13:15 ABG pO2 71 mmHg (85-104) L 05/15/17 13:15 ABG HCO3 27.9 mEQ/L (21-27) H 05/15/17 13:15 ABG O2 Saturation 94 % (95-98) L 05/15/17 13:15 Calcium 8.0 mg/dL (8.6-10.8) L 05/19/17 04:00 Phosphorus 2.2 mg/dL (2.3-4.7) L 05/12/17 05:15 Magnesium 1.4 mg/dL (1.6-2.6) L 05/18/17 05:20 Consult Discharge Plan - Plan Additional Instructions: discharge home weekly CBC and vancomycin troughs- goal trough approximately 15 continue treatment with vancomycin through 06/11/17 follow up with infectious disease on 06/03/17 Follow up with primary care doctor within 1 week of discharge follow up with nephrology. return to emergency department if you develop fever, chills, chest pain, shortness of breath. Referrals: Nallely Hanna CNP [Primary Care Provider] - 05/22/17 10:00 am (Please follow up as schedule..) Fariba Cross CNP [Advanced Practice Nurse] - 06/03/17 9:30 am Lars Zavala, [Partnered Physician] -
[2017-05-19] MEDS: Gabapentin 300 MG CAPSULE PO SCH ×2 (16:00→20:06)
[2017-05-19] MEDS ORDERED: Vancomycin 1,000 MG in D5% in Water 250 ML IVPB ONE (17:00)
--- NOTE | 2017-05-19 17:42 | Internal Med Progress Note ---
<Lillie Taylor - Last Filed: 05/19/17 17:40> Date of Encounter: 05/19/17 Time of Encounter: 10:00 - 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 plan (1) Septicemia due to methicillin resistant Staphylococcus aureus Current Visit: Yes Status: Acute 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 plan: MRSA bacteremia in the setting of infected dialysis catheter. Blood cultures were persistently positive for 3 draws, repeat blood cultures drawn 05/14 are negative. ROSITA negative for vegetation. This the patient's third episode in the last 6 months. Vancomycin day 13. Appreciate ID recommendations. Plan: -Continue vanc weekly CBC and vac troughs for the duration of treatment. goal vanc trough 15. per ID, continue treatment for four weeks from the first set of negative blood cultures, treat through 06/11/17 Follow up with ID on 06/03/17 scheduled. placement of permacath tomorrow with likely discharge afterwards. (2) Severe sepsis Current Visit: Yes Status: Acute 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 plan: Plan as above. (3) Pneumonia Current Visit: Yes Status: Resolved 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 plan: right LL pneumonia S. pneumo and legionella Ag negative patient treated with Rocephin for eight days. Qualifiers: Pneumonia type: due to unspecified organism Laterality: right Lung location: lower lobe of lung Qualified Code(s): J18.1 - Lobar pneumonia, unspecified organism (4) Acute encephalopathy Current Visit: Yes Status: Resolved 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 plan: Likely related to severe sepsis on presentation possibly exacerbated by hypotension postdialysis. Resolved at this time. We will continue to monitor. (5) Central line-associated bloodstream infection Current Visit: Yes Status: Acute Qualifiers: Encounter type: subsequent encounter Qualified Code(s): T80.211D - Bloodstream infection due to central venous catheter, subsequent encounter (6) Acute blood loss anemia Current Visit: Yes Status: Resolved 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 plan: Hemoglobin was 8.5, down from 9.5 8, received 2 units of blood 05/16 with dialysis. Likely related to bleeding after temporary dialysis line removed. No more active bleeding noted. Will continue to monitor. (7) ESRD (end stage renal disease) on dialysis Current Visit: No Status: Chronic 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 plan: resume regularly scheduled dialysis. plan for permacath placement tomorrow, then possible discharge. (8) HTN (hypertension) Current Visit: No Status: Chronic 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 plan: Resume home BP meds blood pressure well controlled at this time. Qualifiers: Hypertension type: renovascular hypertension Qualified Code(s): I15.0 - Renovascular hypertension (9) Chronic respiratory failure with hypoxia Current Visit: Yes Status: Acute 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 plan: Patient uses 2 L of oxygen at night. attempt to wean off oxygen as tolerated. (10) DVT prophylaxis Current Visit: No Status: Acute 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 plan: Heparin SQ - Subjective Interval history: 45 year old male evaluated at bedside. He denies nausea, vomiting, diarrhea, fever, chills, chest pain, SOB. patient denies any complaints today. - Constitutional Vitals: Temp Pulse Resp BP Pulse Ox 97.5 F L 61 15 129/79 100 05/19/17 16:33 05/19/17 16:33 05/19/17 16:33 05/19/17 16:33 05/19/17 16:33 General appearance: Present: disheveled, A&O X 3, no acute distress, answers questions appropriately - Head Head exam: Present: atraumatic, normocephalic - Neck Neck exam general surgery: Present: supple, trachea midline - Respiratory Respiratory exam: Present: CTAB - Cardiovascular Cardiovascular exam: Present: RRR, +S1, +S2 - GI/Abdominal Additional comments: mild, diffuse tenderness to palpation - Extremities Exam Extremities exam: Absent: cyanotic, pedal edema - Neurological Exam Neurological exam: Present: alert, oriented X3, no focal deficits - Psychiatric Psychiatric exam: Present: normal affect, normal mood - Skin Skin exam: Present: intact Internal Medicine: Result - Labs CBC & Chem 7: 05/19/17 04:00 05/19/17 04:00 Labs: Short CBC 05/19/17 Range/Units 04:00 WBC 10.2 (4.3-11.1) K/mcL Hgb 8.1 L (12.9-16.9) g/dL Hct 24.1 L (37.5-50.1) % Plt Count 200 (140-400) K/mcL Neutrophils # 6.5 (1.6-8.9) K/mcL BMP 05/19/17 04:00 Sodium 125 L Potassium 3.6 Chloride 96 L Carbon Dioxide 21 BUN 26 Creatinine 5.28 H Glucose 76 Calcium 8.0 L - ABG Interpretation ABG results: ABG ABG pH 7.40 pH Units (7.32-7.45) 05/15/17 13:15 ABG pCO2 45 mmHg (35-45) 05/15/17 13:15 ABG pO2 71 mmHg (85-104) L 05/15/17 13:15 ABG O2 Saturation 94 % (95-98) L 05/15/17 13:15 PT/INR, D-dimer PT 11.3 Seconds (9.4-12.1) 05/19/17 04:50 Consult Discharge Plan - Plan Referrals: Nallely Hanna CNP [Primary Care Provider] - 05/22/17 10:00 am (Please follow up as schedule..) Fariba Cross CNP [Advanced Practice Nurse] - 06/03/17 9:30 am <Dylan Caceres - Last Filed: 05/19/17 18:17> Date of Encounter: 05/19/17 - 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 plan (1) Septicemia due to methicillin resistant Staphylococcus aureus Current Visit: Yes Status: Acute (2) Central line-associated bloodstream infection Current Visit: Yes Status: Acute Qualifiers: Encounter type: subsequent encounter Qualified Code(s): T80.211D - Bloodstream infection due to central venous catheter, subsequent encounter (3) COPD (chronic obstructive pulmonary disease) with chronic bronchitis Current Visit: Yes Status: Acute (4) Chronic respiratory failure with hypoxia Current Visit: Yes Status: Acute (5) ESRD (end stage renal disease) on dialysis Current Visit: Yes Status: Acute (6) Anemia in chronic kidney disease Current Visit: No Status: Chronic Qualifiers: Chronic kidney disease stage: on chronic dialysis Qualified Code(s): N18.6 - End stage renal disease; D63.1 - Anemia in chronic kidney disease; Z99.2 - Dependence on renal dialysis (7) Nicotine addiction Current Visit: Yes Status: Acute Qualifiers: Nicotine product type: chewing tobacco Substance use status: in withdrawal Qualified Code(s): F17.223 - Nicotine dependence, chewing tobacco, with withdrawal - Constitutional Vitals: Temp Pulse Resp BP Pulse Ox 97.5 F L 61 15 129/79 100 05/19/17 16:33 05/19/17 16:33 05/19/17 16:33 05/19/17 16:33 05/19/17 16:33 Internal Medicine: Result - Labs CBC & Chem 7: 05/19/17 04:00 05/19/17 04:00 Labs: Short CBC 05/19/17 Range/Units 04:00 WBC 10.2 (4.3-11.1) K/mcL Hgb 8.1 L (12.9-16.9) g/dL Hct 24.1 L (37.5-50.1) % Plt Count 200 (140-400) K/mcL Neutrophils # 6.5 (1.6-8.9) K/mcL BMP 05/19/17 04:00 Sodium 125 L Potassium 3.6 Chloride 96 L Carbon Dioxide 21 BUN 26 Creatinine 5.28 H Glucose 76 Calcium 8.0 L - ABG Interpretation ABG results: ABG ABG pH 7.40 pH Units (7.32-7.45) 05/15/17 13:15 ABG pCO2 45 mmHg (35-45) 05/15/17 13:15 ABG pO2 71 mmHg (85-104) L 05/15/17 13:15 ABG O2 Saturation 94 % (95-98) L 05/15/17 13:15 PT/INR, D-dimer PT 11.3 Seconds (9.4-12.1) 05/19/17 04:50 - Attending Attestation I examined this patient and my medical decision-making was reviewed with the Resident Physician on 05/19/17. I agree with the documented findings, disposition and treatment plan as described except to the extent set forth below. Mr. Castro is currently admitted for MRSA bacteremia from [facility]. He remains moderate to high risk due to potential for worsening infection. Mr. Castro is resting. He was to have tunneled catheter today but did not occur and will be done in AM. Temp cath not as functional today. No fever or chills. No other symptoms. Exam Alert. Comfortable Mucus membranes moist Heart reg No wheeze I/P 1. MRSA bacteremia 2. CLABSI Catheter to be done tomorrow. D/C after done. Further diagnoses and plan as above.
--- NOTE | 2017-05-19 18:17 | Discharge Summary ---
<Lillie Taylor - Last Filed: 05/20/17 14:55> Date of Encounter: 05/20/17 Time of Encounter: 10:00 - Discharge Diagnosis (1) Septicemia due to methicillin resistant Staphylococcus aureus Priority: Primary Status: Acute (2) Severe sepsis Priority: Secondary Status: Acute (3) Pneumonia Priority: Secondary Status: Resolved Qualifiers: Pneumonia type: due to unspecified organism Laterality: right Lung location: lower lobe of lung Qualified Code(s): J18.1 - Lobar pneumonia, unspecified organism (4) Acute encephalopathy Priority: Secondary Status: Resolved (5) Central line-associated bloodstream infection Priority: Secondary Status: Acute Qualifiers: Encounter type: subsequent encounter Qualified Code(s): T80.211D - Bloodstream infection due to central venous catheter, subsequent encounter (6) Acute blood loss anemia Priority: Secondary Status: Resolved (7) ESRD (end stage renal disease) on dialysis Priority: Secondary Status: Chronic (8) HTN (hypertension) Priority: Secondary Status: Chronic Qualifiers: Hypertension type: renovascular hypertension Qualified Code(s): I15.0 - Renovascular hypertension (9) Chronic respiratory failure with hypoxia Priority: Secondary Status: Acute (10) DVT prophylaxis Priority: Secondary Status: Acute - Discharge Medications Prescriptions: Gabapentin [Neurontin] 600 mg PO TID #180 cap Vancomycin [Vancocin] 750 each IVPB AD #10 vial Home Medications: Citalopram [CeleXA] 40 mg PO DAILY 10/02/15 [History] Fluticasone/Salmeterol [Advair 250-50 Diskus] 1 puff IH BID 10/02/15 [History] Furosemide [Lasix] 40 mg PO BID 10/02/15 [History] Lidocaine Patch [Lidoderm 5% patch] 1 patch TP DAILY 10/02/15 [History] hydrOXYzine HCl [Hydroxyzine HCl] 25 mg PO TID 10/02/15 [History] Isosorbide MONOnitrate (24 HR) [Imdur] 30 mg PO DAILY #30 tab.er.24h 09/03/16 [ Rx] Ferrous Sulfate [Iron] 325 mg PO DAILY 10/04/16 [History] Carvedilol [Coreg] 6.25 mg PO BID 11/03/16 [History] Ergocalciferol (VITAMIN D2) [Vitamin D2] 50,000 unit PO QWEEK 11/03/16 [History] Lisinopril [Zestril] 10 mg PO DAILY 11/03/16 [History] Simvastatin [Zocor] 40 mg PO HS 11/03/16 [History] Tizanidine HCl [Zanaflex] 4 mg PO TID 11/03/16 [History] Ipratropium/Albuterol Sulfate [Combivent Respimat Inhal [place]] 1 puff IH QID 04/28 [History] Aspirin 81 mg PO DAILY #30 tab.chew 11/24/16 [Rx] Albuterol Sulfate [Proair Hfa] 2 puff IH Q4H PRN 05/08/17 [History] BuPROPion SR (12 HR) [Wellbutrin SR] 150 mg PO BID 05/08/17 [History] Calcium Acetate [Phos-LO] 1,334 mg PO TIDWM 05/08/17 [History] Metoprolol Tartrate [Lopressor] 50 mg PO DAILY 05/08/17 [History] Mupirocin [Bactroban Oint] 1 appl TP BID 05/08/17 [History] Ondansetron HCl [Zofran] 4 mg PO BID 05/08/17 [History] Potassium Chloride [Klor-Con 10] 10 meq PO BID 05/08/17 [History] Sevelamer [Renvela] 2,400 mg PO TIDWM 05/08/17 [History] Tramadol HCl [Ultram] 50 mg PO TID PRN 05/08/17 [History] Gabapentin [Neurontin] 600 mg PO TID #180 cap 05/20/17 [Rx] Vancomycin [Vancocin] 750 each IVPB AD #10 vial 05/20/17 [Rx] Allergies/Adverse Reactions: Allergies bee venom protein (honey bee) Adverse Reaction (Verified 05/07/17 16:52) Swelling of Lip/Tongue/Throat potassium Adverse Reaction (Verified 05/07/17 16:52) Vomiting prednisone Adverse Reaction (Verified 05/07/17 16:52) Vomiting Date of admission: 05/07/17 23:30 Primary care physician: Nallely Hanna CNP Consults: 05/07/17 23:33 Consult to Nephrology [CONS] Routine Consulting Provider: Kidney Suzanne/RICHARD/JESSICA/LOREN Reason for Consult: ESRD with needing HD. Sepsis Call Completed: No 05/08/17 12:01 Consult to Infectious Diseases [CONS] Routine Consulting Provider: Infectious Disease Suzanne Reason for Consult: MRSA Septicemia Time Notified: 12:01 Call Completed: Yes 05/09/17 07:58 Consult to Interventional Radiology [CONS] Routine Consulting Provider: Radiology Interventional Cols Reason for Consult: Please evaluate for removal of the infected Permacath and for placement of a temproary HD catheter. Thank you. Call Completed: Yes 05/09/17 08:15 Consult to Dialysis [CONS] ONCE 05/10/17 09:45 Consult to Dialysis [CONS] ONCE 05/12/17 08:00 Consult to Dialysis [CONS] ONCE 05/13/17 08:00 Consult to Dialysis [CONS] ONCE 05/14/17 08:15 Consult to Dialysis [CONS] ONCE 05/16/17 09:04 Consult to Interventional Radiology [CONS] Routine Consulting Provider: Radiology Interventional Cols Reason for Consult: Temp Line placement Call Completed: Yes 05/16/17 09:45 Consult to Dialysis [CONS] ONCE 05/19/17 05:47 Consult to Interventional Radiology [CONS] Routine Consulting Provider: Radiology Interventional Cols Reason for Consult: Please evaluate for Permacath placement and removal of the temporary Femoral HD catheter today. BCx have been negative. Call Completed: No 05/19/17 06:00 Consult to Dialysis [CONS] ONCE - Patient Status Disposition: Home, Self-Care Condition: Fair Functional capacity at discharge: independent ambulation Overall status at discharge: patient is progressing back to baseline - Discharge Instructions Instructions: Chronic Kidney Disease (GEN), Chronic Obstructive Pulmonary Disease (GEN) Follow Up With: Nallely Hanna CNP [Primary Care Provider] - 05/22/17 10:00 am (Please follow up as schedule..) Fariba Cross CNP [Advanced Practice Nurse] - 06/03/17 9:30 am Lars Zavala DO [Partnered Physician] - Additional Instructions: discharge home weekly CBC and vancomycin troughs- goal trough approximately 15 continue treatment with vancomycin through 06/11/17 follow up with infectious disease on 06/03/17 Follow up with primary care doctor within 1 week of discharge follow up with nephrology. Vancomycin to be administered at dialysis sessions. - Diet and Activity Activity: increase activity as tolerated Diet: other (renal diet) Hospital course: Mr. Castro is a 52 year old male with PMHx of ESRD on dialysis MWF, arthritis, CHF, COPD, CAD, GERD, HLD, HTN, [place], ostoeporosis, PAD. He presented to ED on for CC of subjective fevers and chills x2 weeks. upon examination, he was found to be hypotensive with BP in 80s systolic that occurred during hemodialysis. He was admitted to the hospital for severe sepsis secondary to MRSA infection in his HD catheter. Patient had placement of a temporary dialysis catheter and started on vancomycin. CXR showed persistent effusion at the right lower lobe that was likely pneumonia. patient was treated with ceftriaxone for 8 days. Patient's initial blood cultures drawn on 05/07/17 were positive 2/2 sets for MRSA. He had 3 repeated sets of blood cultures that were positive for MRSA. ROSITA was negative for vegetations. After continued treatment with vancomycin, further repeat blood cultures showed no growth. Patient had new permacath placed after blood cultures were negative by IR, patient tolerated the procedure well, and he remained stable upon discharge. Plan: discharge home weekly CBC and vancomycin troughs- goal trough approximately 15 continue treatment with vancomycin through 06/11/17 follow up with infectious disease on 06/03/17 Follow up with primary care doctor within 1 week of discharge follow up with nephrology. Vancomycin to be administered at dialysis sessions. - Time Spent with Patient Total time spent providing and/or coordinating discharge services: - Constitutional Vitals: Temp Pulse Resp BP Pulse Ox 97.5 F L 61 15 129/79 100 05/19/17 16:33 05/19/17 16:33 05/19/17 16:33 05/19/17 16:33 05/19/17 16:33 General appearance: Present: disheveled, A&O X 3, no acute distress, answers questions appropriately - Head Head exam: Present: atraumatic, normocephalic - Neck Neck exam general surgery: Present: supple, trachea midline - Respiratory Respiratory exam: Present: CTAB - Cardiovascular Cardiovascular exam: Present: RRR, +S1, +S2 - GI/Abdominal Additional comments: mild tenderness to palpation - Extremities Exam Extremities exam: Absent: cyanotic, pedal edema - Neurological Exam Neurological exam: Present: alert, oriented X3, no focal deficits - Psychiatric Psychiatric exam: Present: normal affect, normal mood <Marcus Lopez T - Last Filed: 05/20/17 16:33> Date of Encounter: 05/20/17 Procedures/tests Complete & Pending: Procedures Performed prior 72 hours Category Date Time Status IR cvc insrt tunnel wo prt/ribbon inker [IR] Routine IR 05/20/17 Completed IR us guide needle place [IR] Routine IR 05/20/17 Completed Date of admission: 05/07/17 23:30 Primary care physician: Nallely Hanna CNP Consults: 05/07/17 23:33 Consult to Nephrology [CONS] Routine Consulting Provider: Kidney Suzanne/RICHARD/JESSICA/LOREN Reason for Consult: ESRD with needing HD. Sepsis Call Completed: No 05/08/17 12:01 Consult to Infectious Diseases [CONS] Routine Consulting Provider: Infectious Disease Suzanne Reason for Consult: MRSA Septicemia Time Notified: 12:01 Call Completed: Yes 05/09/17 07:58 Consult to Interventional Radiology [CONS] Routine Consulting Provider: Radiology Interventional Cols Reason for Consult: Please evaluate for removal of the infected Permacath and for placement of a temproary HD catheter. Thank you. Call Completed: Yes 05/09/17 08:15 Consult to Dialysis [CONS] ONCE 05/10/17 09:45 Consult to Dialysis [CONS] ONCE 05/12/17 08:00 Consult to Dialysis [CONS] ONCE 05/13/17 08:00 Consult to Dialysis [CONS] ONCE 05/14/17 08:15 Consult to Dialysis [CONS] ONCE 05/16/17 09:04 Consult to Interventional Radiology [CONS] Routine Consulting Provider: Radiology Interventional Cols Reason for Consult: Temp Line placement Call Completed: Yes 05/16/17 09:45 Consult to Dialysis [CONS] ONCE 05/19/17 05:47 Consult to Interventional Radiology [CONS] Routine Consulting Provider: Radiology Interventional Cols Reason for Consult: Please evaluate for Permacath placement and removal of the temporary Femoral HD catheter today. BCx have been negative. Call Completed: No 05/19/17 06:00 Consult to Dialysis [CONS] ONCE 05/20/17 11:45 Consult to Dialysis [CONS] ONCE Hospital course: Mr. Castro is a 52 year old male - Time Spent with Patient Total time spent providing and/or coordinating discharge services: Greater than 30 minutes - Constitutional Vitals: Temp Pulse Resp BP Pulse Ox 97.5 F L 48 18 133/87 99 05/20/17 15:40 05/20/17 11:19 05/20/17 15:40 05/20/17 15:40 05/20/17 11:19 - Attending Attestation I examined this patient and my medical decision-making was reviewed with the Resident Physician on 05/20/17. I agree with the documented findings, disposition and treatment plan as described except to the extent set forth below. 52 year old male with PMHx of ESRD on dialysis MWF, arthritis, CHF, COPD, CAD, GERD, HLD, HTN, [place], osteoporosis, PAD. Seen and evaluated at bedside Awaiting perma cath placement He was admitted and managed for Severe Sepsis, CLABSI, RLL pneumonia, Anemia of chronic disease. He is also awaiting HD after line placement His current access is his L groin He denies new complains VSS, chest is clear, abdomen is benign, no pedal edema INR 1.1, chem stable He is stable to be discharged home on Vancomycin IV to be given and co- ordinated by his HD center Follow up with Infectious disease Other chronic medical conditions are stable
[2017-05-19] MEDS ORDERED: 0.9 % Sodium Chloride 1,000 ML ONE (19:46)
[2017-05-20] MEDS: *HR* Heparin 5,000 UNIT/ML VIAL SQ SCH ×2 (03:50→15:44)
[2017-05-20] MEDS: Ipratropium/Albuterol Neb 3 ML IH SCH ×4 (04:15→16:38)
[2017-05-20 04:22] LABS: INR 1.1
--- NOTE | 2017-05-20 09:10 | Nephrology Progress Note ---
Date of Encounter: 05/20/17 Time of Encounter: 09:07 - 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 Plan (1) ESRD (end stage renal disease) on dialysis Current Visit: Yes Status: Acute Temp line no longer working; had very little dialysis yesterday Waiting to go for permacath placement today Anticipate HD treatment once permacath placed then plans are to discharge patient To follow up tomorrow at [facility] for regular HD treatment. Continue renal diet Avoid nephrotoxins if possible (2) COPD (chronic obstructive pulmonary disease) with chronic bronchitis Current Visit: Yes Status: Acute per primary team (3) Hyponatremia Current Visit: No Status: Acute No labs available today Will follow in dialysis center Subjective Principal diagnosis: ESRD, Hyponatremia, Bacteremia Interval history: Patient seen and examined. Sitting on side of bed, states feeling well today. Waiting to go for permacath placement Objective - Vital Signs Vital signs: Vital Signs Temp Pulse Resp BP Pulse Ox 05/20/17 08:09 98 F 62 17 168/82 98 05/20/17 03:23 98.1 F 79 18 164/83 96 05/19/17 23:20 97.6 F 59 18 142/75 95 05/19/17 19:34 97.7 F 58 17 121/65 100 05/19/17 16:33 97.5 F L 61 15 129/79 100 05/19/17 11:49 97.9 F 54 16 117/64 100 05/19/17 11:35 97.4 F L 16 103/61 05/19/17 11:15 99/52 05/19/17 11:00 97/56 05/19/17 10:45 92/43 05/19/17 10:30 90/44 05/19/17 10:15 94/60 05/19/17 10:00 122/64 05/19/17 09:45 97.1 F L 18 106/67 Intake and Output 05/19/17 05/20/17 05/20/17 23:59 07:59 15:59 Intake Total 840 / 840 Balance 840 / 840 Intake: Oral 840 / 840 Other: Meal Dinner Percent of Meal Consumed 60% Stool Size Smear Stool Consistency liquid Stool Color Black # Bowel Movements 1 # Bowel Movement Diapers 1 Weight 75 kg Patient Weight 05/20/17 23:59 Weight 75 kg - General Appearance General appearance: Present: well-developed, well-nourished EENT: Present: ATNC, mucous membranes moist, hearing intact, vision intact Neck: Present: supple Cardiology: Present: no edema, regular rate, regular rhythm Dialysis Vascular Access: Venous Catheter Gastrointestinal: Present: no tenderness, no guarding Integumentary: Present: warm and dry Neurologic: Present: alert and oriented x3 Psychiatric: Present: mood/affect appropriate, cooperative - Lab 05/19/17 04:00 05/19/17 04:00 Most recent lab results ABG pH 7.40 pH Units (7.32-7.45) 05/15/17 13:15 ABG pCO2 45 mmHg (35-45) 05/15/17 13:15 ABG pO2 71 mmHg (85-104) L 05/15/17 13:15 ABG HCO3 27.9 mEQ/L (21-27) H 05/15/17 13:15 ABG O2 Saturation 94 % (95-98) L 05/15/17 13:15 Calcium 8.0 mg/dL (8.6-10.8) L 05/19/17 04:00 Phosphorus 2.2 mg/dL (2.3-4.7) L 05/12/17 05:15 Magnesium 1.4 mg/dL (1.6-2.6) L 05/18/17 05:20 Consult Discharge Plan - Plan Additional Instructions: discharge home weekly CBC and vancomycin troughs- goal trough approximately 15 continue treatment with vancomycin through 06/11/17 follow up with infectious disease on 06/03/17 Follow up with primary care doctor within 1 week of discharge follow up with nephrology. return to emergency department if you develop fever, chills, chest pain, shortness of breath. Referrals: Nallely Hanna CNP [Primary Care Provider] - 05/22/17 10:00 am (Please follow up as schedule..) Fariba Cross CNP [Advanced Practice Nurse] - 06/03/17 9:30 am Lars Zavala DO [Partnered Physician] -
[2017-05-20] MEDS: Aspirin 81 MG TAB.CHEW PO SCH (09:21)
[2017-05-20] MEDS: Isosorbide MONOnitrate (24 HR) 30 MG TAB.ER.24H PO SCH (09:21)
[2017-05-20] MEDS: BuPROPion SR (12 HR) 150 MG TABLET PO SCH (09:21)
[2017-05-20] MEDS: Ondansetron ODT 4 MG TAB.RAPDIS PO SCH (09:21)
[2017-05-20] MEDS: tiZANidine 4 MG TABLET PO SCH ×2 (09:21→15:43)
[2017-05-20] MEDS: hydrOXYzine pamoate 25 MG CAPSULE PO SCH ×2 (09:21→15:44)
[2017-05-20] MEDS: Gabapentin 300 MG CAPSULE PO SCH ×2 (09:22→15:44)
[2017-05-20] MEDS: Nicotine 21 MG PATCH.TD24 TD SCH (09:22)
[2017-05-20] MEDS: Furosemide 40 MG TABLET PO SCH ×2 (09:22→15:43)
[2017-05-20] MEDS ORDERED: ceFAZolin 2,000 MG in D5% in Water 100 ML IVPB ONE (10:45)
[2017-05-20] MEDS ORDERED: *HR* Midazolam HCl 2 MG/2 ML VIAL IVP PRN (10:45)
[2017-05-20] MEDS ORDERED: *HR* FentaNYL (PF) 100 MCG/2 ML VIAL IVP PRN (10:45)
[2017-05-20] MEDS: Budesonide/Formoterol 80/4.5 MDI IH SCH (10:55)
[2017-05-20] MEDS ORDERED: 0.9 % Sodium Chloride 500 ML ONE (10:57)
[2017-05-20] MEDS ORDERED: ceFAZolin 1,000 MG in D5% in Water (Mini-Bag+) 100 ML IVPB ONE ×2 (11:02→11:05)
--- NOTE | 2017-05-20 11:14 | IR Procedure Note ---
Date of procedure: 05/20/17 Consent Obtained: Verbal consent Timeout: Correct patient and procedure verified, Correct site verified, Time out performed, Skin prep completed Local anesthetic: Lidocaine 1% Indications: Chronic renal failure Procedure Performed: Tunneled HD catheter placement Site/Technique: Tunneled left IJ HD catheter placed in VIR Results/Findings: Catheter in good position Estimated blood loss (cc): 2 Complications: None; Tolerated procedure well Post Procedure Treatment Plan: May use HD catheter now
[2017-05-20] MEDS ORDERED: *HR* Heparin 5,000 UNIT/ML VIAL ONE (11:17)
[2017-05-20] MEDS ORDERED: 0.9 % Sodium Chloride 250 ML IVC PRN (11:38)
[2017-05-20] MEDS ORDERED: *HR* Heparin 10,000 UNIT/10 ML VIAL IV PRN (11:38)
[2017-05-20] MEDS ORDERED: 0.9 % Sodium Chloride 1,000 ML PRIME SCH (11:45)
[2017-05-20 17:03] VITALS: BP 92/52
[2017-05-20] MEDS ORDERED: Aminoglycoside Consult 1 EACH MC ONE (18:53)
== END 2017-05-20 18:54 | disposition home or self-care (01) | DRG 721 ==
LOC: EMEROO 16:42 → 2ANU 16:42
PROVIDERS: ADMIT Internal Medicine; ATTEND Internal Medicine
PROC: IRPERMA (2017-05-20 12:30)

== ENCOUNTER 2017-06-06 07:14 | Inpatient (IN) ==
[2017-06-06] MEDS ORDERED: Nitroglycerin 0.4 MG TAB.SUBL SL ONE ×2 (07:17→07:19)
[2017-06-06] MEDS: Nitroglycerin 0.4 MG TAB.SUBL SL PRN ×2 (07:18→07:23)
[2017-06-06] MEDS ORDERED: methylPREDNISolone 125 MG/2 ML VIAL IVP ONE (07:19)
[2017-06-06] MEDS ORDERED: Ipratropium/Albuterol Neb 3 ML IH ONE (07:19)
[2017-06-06] MEDS ORDERED: Furosemide 40 MG/4 ML VIAL IVP ONE (07:19)
--- NOTE | 2017-06-06 07:20 | Emergency Department Note ---
Disposition Clinical Impression: CHF (congestive heart failure) Disposition: Admitted As Inpatient Condition: Fair General Adult HPI - General Chief complaint: ED Shortness of Breath/Dyspnea Stated complaint: SOB Time Seen by Provider: 06/06/17 07:16 - Related Data Home Medications Medication Instructions Recorded Confirmed Citalopram [CeleXA] 40 mg PO DAILY 10/02/15 06/06/17 Fluticasone/Salmeterol [Advair 1 puff IH BID 10/02/15 06/06/17 250-50 Diskus] Furosemide [Lasix] 40 mg PO BID 10/02/15 06/06/17 Lidocaine Patch [Lidoderm 5% patch] 1 patch TP DAILY 10/02/15 06/06/17 hydrOXYzine HCl [Hydroxyzine HCl] 25 mg PO TID 10/02/15 06/06/17 Ferrous Sulfate [Iron] 325 mg PO DAILY 10/04/16 06/06/17 Carvedilol [Coreg] 6.25 mg PO BID 11/03/16 06/06/17 Ergocalciferol (VITAMIN D2) 50,000 unit PO QWEEK 11/03/16 06/06/17 [Vitamin D2] Lisinopril [Zestril] 10 mg PO DAILY 11/03/16 06/06/17 Simvastatin [Zocor] 40 mg PO HS 11/03/16 06/06/17 Tizanidine HCl [Zanaflex] 4 mg PO TID 11/03/16 06/06/17 Ipratropium/Albuterol Sulfate 1 puff IH QID 11/19/16 06/06/17 [Combivent Respimat Inhal [place]] Albuterol Sulfate [Proair Hfa] 2 puff IH Q4H PRN 05/08/17 06/06/17 BuPROPion SR (12 HR) [Wellbutrin 150 mg PO BID 05/08/17 06/06/17 SR] Calcium Acetate [Phos-LO] 1,334 mg PO TIDWM 05/08/17 06/06/17 Metoprolol Tartrate [Lopressor] 50 mg PO DAILY 05/08/17 06/06/17 Mupirocin [Bactroban Oint] 1 appl TP BID 05/08/17 06/06/17 Ondansetron HCl [Zofran] 4 mg PO BID 05/08/17 06/06/17 Potassium Chloride [Klor-Con 10] 10 meq PO BID 05/08/17 06/06/17 Sevelamer [Renvela] 2,400 mg PO TIDWM 05/08/17 06/06/17 Tramadol HCl [Ultram] 50 mg PO TID PRN 05/08/17 06/06/17 Previous Rx's Medication Instructions Recorded Isosorbide MONOnitrate (24 HR) 30 mg PO DAILY #30 tab.er.24h 09/03/16 [Imdur] Aspirin 81 mg PO DAILY #30 tab.chew 11/24/16 Gabapentin [Neurontin] 600 mg PO TID #180 cap 05/20/17 Allergies Allergy/AdvReac Type Severity Reaction Status Date / Time bee venom protein (honey bee) AdvReac Swelling Verified 06/06/17 07:57 of Lip/Tongue/Throat potassium AdvReac Vomiting Verified 06/06/17 07:57 prednisone AdvReac Vomiting Verified 06/06/17 07:57 Past Medical History - Past Medical History Medical history: Reports: arthritis, CHF, COPD, coronary artery disease, dialysis, GERD, hyperlipidemia, hypertension, myocardial infarction, osteoporosis, peripheral artery disease, renal disease, other Surgical history: Reports: non-contributory, vascular surgery, other Psychiatric history: Reports: anxiety, bipolar, depression, other - Social History Smoking Status: Current every day smoker Smokeless Tobacco Status: Yes Alcohol use: Reports: none Drug use: Reports: marijuana Course Vital Signs Temperature 0 F L 06/06/17 07:16 Pulse Rate 72 06/06/17 07:16 Respiratory Rate 30 06/06/17 07:16 Blood Pressure 183/101 06/06/17 07:16 O2 Sat by Pulse Oximetry 95 06/06/17 07:16 Temperature 98.3 F 06/07/17 04:43 Pulse Rate 76 06/07/17 04:43 Respiratory Rate 16 06/07/17 04:43 Blood Pressure 164/81 06/07/17 04:43 O2 Sat by Pulse Oximetry 96 06/07/17 04:43 Oxygen Delivery Oxygen Delivery Bipap Medical Decision Making - Lab Data Result diagrams: 06/07/17 03:49 06/07/17 03:49 Lab Results 08/25/17 08/25/17 08/25/17 Range/Units 07:27 07:27 07:27 WBC 7.4 (4.3-11.1) K/mcL RBC 3.38 L (4.19-5.50) M/mcL Hgb 9.8 L (12.9-16.9) g/dL Hct 30.6 L (37.5-50.1) % MCV 90.5 (83.0-100.0) fL MCH 29.0 (28.0-33.3) pg MCHC 32.0 (31.6-35.5) g/dL RDW 14.6 H (11.5-14.5) % Plt Count 275 (140-400) K/mcL MPV 8.9 L (9.4-12.4) fL Immature Gran % 0.4 (0-4) % Seg Neutrophils % 47.2 % Lymphocytes % 38.3 % Monocytes % 6.8 % Eosinophils % 6.3 % Basophils % 1.0 % Neutrophils # 3.5 (1.6-8.9) K/mcL Lymphocytes # 2.8 (0.6-4.6) K/mcL Monocytes # 0.5 (0.0-1.3) K/mcL Eosinophils # 0.5 (0.0-0.6) K/mcL Basophils # 0.1 (0.0-0.2) K/mcL ABG pH (7.32-7.45) pH Units ABG pCO2 (35-45) mmHg ABG pO2 (85-104) mmHg ABG HCO3 (21-27) mEQ/L ABG Total CO2 (20-26) mEq/L ABG O2 Saturation (95-98) % ABG Base Excess (-2.0 to 3.0) mEq/L Blood Gas Modality Inspired O2 % Sodium 123 L (136-145) mEq/L Potassium 4.2 (3.5-4.5) mEq/L Chloride 89 L (98-109) mEq/L Carbon Dioxide 28 (19-29) mEq/L BUN 15 (8-26) mg/dL Creatinine 4.19 H (0.72-1.25) mg/dL Est GFR ( Amer) 18 L (> 60) Est GFR (Non-Af Amer) 15 L (> 60) BUN/Creatinine Ratio 4 L (6-26) Glucose 94 (70-99) mg/dL POC Glucose (58-89) Calculated Osmolality 257 L (280-300) Lactic Acid 1.1 (0.5-2.2) mmol/L Calcium 8.5 L (8.6-10.8) mg/dL Phosphorus (2.3-4.7) mg/dL Magnesium (1.6-2.6) mg/dL Total Bilirubin (0.2-1.2) mg/dL AST (5-34) Units/L ALT (0-55) Units/L Alkaline Phosphatase (38-126) Units/L Troponin I (0-0.03) ng/mL B-Natriuretic Peptide (0-100) pg/mL Serum Total Protein (6.0-8.3) g/dL Albumin (3.5-5.0) g/dL Globulin (2.4-3.5) g/dL Albumin/Globulin Ratio (1.1-2.2) Random Vancomycin mcg/mL Hep Bs Antigen (Nonreactive) Hep Bs Antibody mIU/mL 06/06/17 06/06/17 06/06/17 Range/Units 07:27 07:27 07:27 WBC (4.3-11.1) K/mcL RBC (4.19-5.50) M/mcL Hgb (12.9-16.9) g/dL Hct (37.5-50.1) % MCV (83.0-100.0) fL MCH (28.0-33.3) pg MCHC (31.6-35.5) g/dL RDW (11.5-14.5) % Plt Count (140-400) K/mcL MPV (9.4-12.4) fL Immature Gran % (0-4) % Seg Neutrophils % % Lymphocytes % % Monocytes % % Eosinophils % % Basophils % % Neutrophils # (1.6-8.9) K/mcL Lymphocytes # (0.6-4.6) K/mcL Monocytes # (0.0-1.3) K/mcL Eosinophils # (0.0-0.6) K/mcL Basophils # (0.0-0.2) K/mcL ABG pH 7.33 (7.32-7.45) pH Units ABG pCO2 53 H (35-45) mmHg ABG pO2 61 L (85-104) mmHg ABG HCO3 27.9 H (21-27) mEQ/L ABG Total CO2 29.5 H (20-26) mEq/L ABG O2 Saturation 89 L (95-98) % ABG Base Excess 1.4 (-2.0 to 3.0) mEq/L Blood Gas Modality BIPAP Inspired O2 50 % Sodium (136-145) mEq/L Potassium (3.5-4.5) mEq/L Chloride (98-109) mEq/L Carbon Dioxide (19-29) mEq/L BUN (8-26) mg/dL Creatinine (0.72-1.25) mg/dL Est GFR ( Amer) (> 60) Est GFR (Non-Af Amer) (> 60) BUN/Creatinine Ratio (6-26) Glucose (70-99) mg/dL POC Glucose (58-89) Calculated Osmolality (280-300) Lactic Acid (0.5-2.2) mmol/L Calcium (8.6-10.8) mg/dL Phosphorus (2.3-4.7) mg/dL Magnesium (1.6-2.6) mg/dL Total Bilirubin (0.2-1.2) mg/dL AST (5-34) Units/L ALT (0-55) Units/L Alkaline Phosphatase (38-126) Units/L Troponin I 0.02 (0-0.03) ng/mL B-Natriuretic Peptide 3609 H (0-100) pg/mL Serum Total Protein (6.0-8.3) g/dL Albumin (3.5-5.0) g/dL Globulin (2.4-3.5) g/dL Albumin/Globulin Ratio (1.1-2.2) Random Vancomycin mcg/mL Hep Bs Antigen (Nonreactive) Hep Bs Antibody mIU/mL 06/06/17 06/06/17 06/06/17 Range/Units 09:13 09:13 09:32 WBC (4.3-11.1) K/mcL RBC (4.19-5.50) M/mcL Hgb (12.9-16.9) g/dL Hct (37.5-50.1) % MCV (83.0-100.0) fL MCH (28.0-33.3) pg MCHC (31.6-35.5) g/dL RDW (11.5-14.5) % Plt Count (140-400) K/mcL MPV (9.4-12.4) fL Immature Gran % (0-4) % Seg Neutrophils % % Lymphocytes % % Monocytes % % Eosinophils % % Basophils % % Neutrophils # (1.6-8.9) K/mcL Lymphocytes # (0.6-4.6) K/mcL Monocytes # (0.0-1.3) K/mcL Eosinophils # (0.0-0.6) K/mcL Basophils # (0.0-0.2) K/mcL ABG pH (7.32-7.45) pH Units ABG pCO2 (35-45) mmHg ABG pO2 (85-104) mmHg ABG HCO3 (21-27) mEQ/L ABG Total CO2 (20-26) mEq/L ABG O2 Saturation (95-98) % ABG Base Excess (-2.0 to 3.0) mEq/L Blood Gas Modality Inspired O2 % Sodium (136-145) mEq/L Potassium (3.5-4.5) mEq/L Chloride (98-109) mEq/L Carbon Dioxide (19-29) mEq/L BUN (8-26) mg/dL Creatinine (0.72-1.25) mg/dL Est GFR ( Amer) (> 60) Est GFR (Non-Af Amer) (> 60) BUN/Creatinine Ratio (6-26) Glucose (70-99) mg/dL POC Glucose 92 H (58-89) Calculated Osmolality (280-300) Lactic Acid 0.5 (0.5-2.2) mmol/L Calcium (8.6-10.8) mg/dL Phosphorus (2.3-4.7) mg/dL Magnesium (1.6-2.6) mg/dL Total Bilirubin (0.2-1.2) mg/dL AST (5-34) Units/L ALT (0-55) Units/L Alkaline Phosphatase (38-126) Units/L Troponin I (0-0.03) ng/mL B-Natriuretic Peptide (0-100) pg/mL Serum Total Protein (6.0-8.3) g/dL Albumin (3.5-5.0) g/dL Globulin (2.4-3.5) g/dL Albumin/Globulin Ratio (1.1-2.2) Random Vancomycin mcg/mL Hep Bs Antigen Nonreactive (Nonreactive) Hep Bs Antibody 485.58 mIU/mL 06/06/17 06/07/17 06/07/17 Range/Units 21:39 03:49 03:49 WBC 4.6 (4.3-11.1) K/mcL RBC 2.70 L (4.19-5.50) M/mcL Hgb 7.8 L D (12.9-16.9) g/dL Hct 23.7 L (37.5-50.1) % MCV 87.8 (83.0-100.0) fL MCH 28.9 (28.0-33.3) pg MCHC 32.9 (31.6-35.5) g/dL RDW 14.3 (11.5-14.5) % Plt Count 182 (140-400) K/mcL MPV 9.9 (9.4-12.4) fL Immature Gran % 1.1 (0-4) % Seg Neutrophils % 67.3 % Lymphocytes % 26.0 % Monocytes % 5.4 % Eosinophils % 0.0 % Basophils % 0.2 % Neutrophils # 3.1 (1.6-8.9) K/mcL Lymphocytes # 1.2 (0.6-4.6) K/mcL Monocytes # 0.3 (0.0-1.3) K/mcL Eosinophils # 0.0 (0.0-0.6) K/mcL Basophils # 0.0 (0.0-0.2) K/mcL ABG pH (7.32-7.45) pH Units ABG pCO2 (35-45) mmHg ABG pO2 (85-104) mmHg ABG HCO3 (21-27) mEQ/L ABG Total CO2 (20-26) mEq/L ABG O2 Saturation (95-98) % ABG Base Excess (-2.0 to 3.0) mEq/L Blood Gas Modality Inspired O2 % Sodium 124 L (136-145) mEq/L Potassium 4.1 (3.5-4.5) mEq/L Chloride 92 L (98-109) mEq/L Carbon Dioxide 26 (19-29) mEq/L BUN 15 (8-26) mg/dL Creatinine 3.23 H (0.72-1.25) mg/dL Est GFR ( Amer) 25 L (> 60) Est GFR (Non-Af Amer) 20 L (> 60) BUN/Creatinine Ratio 5 L (6-26) Glucose 126 H (70-99) mg/dL POC Glucose (58-89) Calculated Osmolality 260 L (280-300) Lactic Acid (0.5-2.2) mmol/L Calcium 8.0 L (8.6-10.8) mg/dL Phosphorus 1.4 L (2.3-4.7) mg/dL Magnesium 1.4 L (1.6-2.6) mg/dL Total Bilirubin 0.4 (0.2-1.2) mg/dL AST 19 (5-34) Units/L ALT 6 (0-55) Units/L Alkaline Phosphatase 123 (38-126) Units/L Troponin I (0-0.03) ng/mL B-Natriuretic Peptide (0-100) pg/mL Serum Total Protein 5.9 L (6.0-8.3) g/dL Albumin 2.3 L (3.5-5.0) g/dL Globulin 3.6 H (2.4-3.5) g/dL Albumin/Globulin Ratio 0.6 L (1.1-2.2) Random Vancomycin 14.4 mcg/mL Hep Bs Antigen (Nonreactive) Hep Bs Antibody mIU/mL Critical Care Time Critical Care Time: Yes Total Critical Care Time: 45 Attestation: Patient presented dyspneic and hypoxic requiring BIPAP Attestation Statement - Attestation Attestation: I examined this patient and my medical decision-making was reviewed with the Resident Physician. I agree with the documented findings, disposition and treatment plan as described except to the extent set forth below. [id number] time provided Patient presents by EMS from home dyspneic. He was hypoxic prehospital. He is tachypneic and using accessory muscles at the time of my exam. He is on BiPAP. Appears much older than stated age. Lungs sound wet. He is a Friday dialysis patient who has not missed any sessions. 08:38: Patient tolerating BiPAP. Pulse ox improved. Patient resting currently. Chest x-ray image reviewed by me. Patient admitted to the hospitalist service. Consult placed to nephrology
--- NOTE | 2017-06-06 07:33 | Emergency Department Note ---
Disposition Clinical Impression: CHF (congestive heart failure) Qualifiers: Congestive heart failure type: diastolic Congestive heart failure chronicity: acute on chronic Qualified Code(s): I50.33 - Acute on chronic diastolic ( congestive) heart failure Disposition: Admitted As Inpatient Condition: Fair Time of Disposition: 13:40 General Adult HPI - General Chief complaint: ED Shortness of Breath/Dyspnea Stated complaint: SOB Time Seen by Provider: 06/06/17 07:16 Source: patient, EMS Limitations: no limitations Nursing Notes Reviewed: Yes Vital Signs Reviewed: Yes - History of Present Illness HPI Narrative: Patient presents to the emergency department by EMS for shortness of breath. States this started this morning. Associated diaphoresis. Associated edema to lower extremities. No pain. Is a dialysis patient. Pain Scale: 8 - Related Data Home Medications Medication Instructions Recorded Confirmed Citalopram [CeleXA] 40 mg PO DAILY 10/02/15 06/06/17 Fluticasone/Salmeterol [Advair 1 puff IH BID 10/02/15 06/06/17 250-50 Diskus] Furosemide [Lasix] 40 mg PO BID 10/02/15 06/06/17 Lidocaine Patch [Lidoderm 5% patch] 1 patch TP DAILY 10/02/15 06/06/17 hydrOXYzine HCl [Hydroxyzine HCl] 25 mg PO TID 10/02/15 06/06/17 Ferrous Sulfate [Iron] 325 mg PO DAILY 10/04/16 06/06/17 Carvedilol [Coreg] 6.25 mg PO BID 11/03/16 06/06/17 Ergocalciferol (VITAMIN D2) 50,000 unit PO QWEEK 11/03/16 06/06/17 [Vitamin D2] Lisinopril [Zestril] 10 mg PO DAILY 11/03/16 06/06/17 Simvastatin [Zocor] 40 mg PO HS 11/03/16 06/06/17 Tizanidine HCl [Zanaflex] 4 mg PO TID 11/03/16 06/06/17 Ipratropium/Albuterol Sulfate 1 puff IH QID 11/19/16 06/06/17 [Combivent Respimat Inhal [place]] Albuterol Sulfate [Proair Hfa] 2 puff IH Q4H PRN 05/08/17 06/06/17 BuPROPion SR (12 HR) [Wellbutrin 150 mg PO BID 05/08/17 06/06/17 SR] Calcium Acetate [Phos-LO] 1,334 mg PO TIDWM 05/08/17 06/06/17 Metoprolol Tartrate [Lopressor] 50 mg PO DAILY 05/08/17 06/06/17 Mupirocin [Bactroban Oint] 1 appl TP BID 05/08/17 06/06/17 Ondansetron HCl [Zofran] 4 mg PO BID 05/08/17 06/06/17 Potassium Chloride [Klor-Con 10] 10 meq PO BID 05/08/17 06/06/17 Sevelamer [Renvela] 2,400 mg PO TIDWM 05/08/17 06/06/17 Tramadol HCl [Ultram] 50 mg PO TID PRN 05/08/17 06/06/17 Previous Rx's Medication Instructions Recorded Isosorbide MONOnitrate (24 HR) 30 mg PO DAILY #30 tab.er.24h 09/03/16 [Imdur] Aspirin 81 mg PO DAILY #30 tab.chew 11/24/16 Gabapentin [Neurontin] 600 mg PO TID #180 cap 05/20/17 Allergies Allergy/AdvReac Type Severity Reaction Status Date / Time bee venom protein (honey bee) AdvReac Swelling Verified 06/06/17 07:57 of Lip/Tongue/Throat potassium AdvReac Vomiting Verified 06/06/17 07:57 prednisone AdvReac Vomiting Verified 06/06/17 07:57 Limitations: ROS unobtainable due to patients medical condition (Patient in severe respiratory distress. He is unable to provide a review o) Past Medical History - Past Medical History Attestation: Yes The following information was validated with the patient. Source: patient Medical history: Reports: arthritis, CHF, COPD, coronary artery disease, dialysis, GERD, hyperlipidemia, hypertension, myocardial infarction, osteoporosis, peripheral artery disease, renal disease, other Surgical history: Reports: non-contributory, vascular surgery, other Psychiatric history: Reports: anxiety, bipolar, depression, other - Social History Smoking Status: Current every day smoker Smokeless Tobacco Status: Yes Alcohol use: Reports: none Drug use: Reports: marijuana Physical Exam - General Limitations: no limitations General appearance: alert, in distress (Severe respiratory) - Head Head exam: atraumatic, normocephalic, normal inspection - Eye Eye exam: Present: normal appearance, PERRL, EOMI - ENT ENT exam: normal exam, normal oropharynx, mucous membranes moist - Neck Neck exam: Present: normal inspection, full ROM, trachea midline - Chest Chest inspection: Present: normal inspection, symmetric chest wall rise - Respiratory Respiratory exam: Present: respiratory distress, accessory muscle use, other ( Rales throughout) - Cardiovascular Cardiovascular exam: Present: regular rate, tachycardia, normal heart sounds - Abdominal Exam Abdominal exam: Present: soft, Non-Tender. Absent: organomegaly - Extremities Exam Extremities exam: Present: normal inspection, full ROM, pedal edema (Pitting to the knees.). Absent: tenderness - Back Exam Back exam: Present: normal inspection, full ROM. Absent: tenderness - Neurological Exam Neurological exam: Present: alert, oriented X3 - Psychiatric Psychiatric exam: Present: normal affect, normal mood - Skin Skin exam: Present: warm, intact, normal color, diaphoresis. Absent: rash, cyanosis Course Course Narrative: Male patient presents to the emergency department in severe respiratory distress. States that he got short of breath this morning. He does have a history of lung cancer COPD CHF and has a chronic dialysis patient on Friday, Friday, Friday Dr. Pavel Preciado's. Patient states he has not missed any dialysis appointments. She was brought in by EMS on a CPAP. They state that the patient's oxygen saturation was initially in the 60s however is now up to 94 - 95% on CPAP and after 1 DuoNeb. Patient's lung sounds are well throughout. He has pitting edema to his knees. He does appear to be in respiratory distress and is diaphoretic. We have started nitroglycerin sublingual as well as a nitro drip. We will get basic lab workup on patient. Patient has also been placed on BiPAP. We will admit patient to the hospital. - Reevaluation(s) Reevaluation #1: Patient is on nitro drip at this time. He is also received 3 sublingual nitroglycerin. Patient's respiratory status has improved significantly. His blood pressure is around 150s systolic. Patient to the hospital for fluid overload at this time. Time: 08:03 - Consultations Consultation #1: Dr. Claudio accepted the patient in stable condition. Time: 08:15 Vital Signs Temperature 0 F L 06/06/17 07:16 Pulse Rate 72 06/06/17 07:16 Respiratory Rate 30 06/06/17 07:16 Blood Pressure 183/101 06/06/17 07:16 O2 Sat by Pulse Oximetry 95 06/06/17 07:16 Temperature 97.8 F 06/06/17 11:35 Pulse Rate 68 06/06/17 11:08 Respiratory Rate 22 06/06/17 11:35 Blood Pressure 149/87 06/06/17 13:20 O2 Sat by Pulse Oximetry 98 06/06/17 11:08 Oxygen Delivery Oxygen Delivery Bipap Medical Decision Making - Medical Records Medical records reviewed: Yes I reviewed the patient's medical records. - Lab Data Lab results reviewed: Yes I reviewed the patient's lab results. Result diagrams: 06/06/17 07:27 06/06/17 07:27 Lab Results 06/06/17 06/06/17 06/06/17 Range/Units 07:27 07:27 07:27 WBC 7.4 (4.3-11.1) K/mcL RBC 3.38 L (4.19-5.50) M/mcL Hgb 9.8 L (12.9-16.9) g/dL Hct 30.6 L (37.5-50.1) % MCV 90.5 (83.0-100.0) fL MCH 29.0 (28.0-33.3) pg MCHC 32.0 (31.6-35.5) g/dL RDW 14.6 H (11.5-14.5) % Plt Count 275 (140-400) K/mcL MPV 8.9 L (9.4-12.4) fL Immature Gran % 0.4 (0-4) % Seg Neutrophils % 47.2 % Lymphocytes % 38.3 % Monocytes % 6.8 % Eosinophils % 6.3 % Basophils % 1.0 % Neutrophils # 3.5 (1.6-8.9) K/mcL Lymphocytes # 2.8 (0.6-4.6) K/mcL Monocytes # 0.5 (0.0-1.3) K/mcL Eosinophils # 0.5 (0.0-0.6) K/mcL Basophils # 0.1 (0.0-0.2) K/mcL ABG pH (7.32-7.45) pH Units ABG pCO2 (35-45) mmHg ABG pO2 (85-104) mmHg ABG HCO3 (21-27) mEQ/L ABG Total CO2 (20-26) mEq/L ABG O2 Saturation (95-98) % ABG Base Excess (-2.0 to 3.0) mEq/L Blood Gas Modality Inspired O2 % Sodium 123 L (136-145) mEq/L Potassium 4.2 (3.5-4.5) mEq/L Chloride 89 L (98-109) mEq/L Carbon Dioxide 28 (19-29) mEq/L BUN 15 (8-26) mg/dL Creatinine 4.19 H (0.72-1.25) mg/dL Est GFR ( Amer) 18 L (> 60) Est GFR (Non-Af Amer) 15 L (> 60) BUN/Creatinine Ratio 4 L (6-26) Glucose 94 (70-99) mg/dL Calculated Osmolality 257 L (280-300) Lactic Acid 1.1 (0.5-2.2) mmol/L Calcium 8.5 L (8.6-10.8) mg/dL Troponin I (0-0.03) ng/mL B-Natriuretic Peptide (0-100) pg/mL 06/06/17 06/06/17 06/06/17 Range/Units 07:27 07:27 07:27 WBC (4.3-11.1) K/mcL RBC (4.19-5.50) M/mcL Hgb (12.9-16.9) g/dL Hct (37.5-50.1) % MCV (83.0-100.0) fL MCH (28.0-33.3) pg MCHC (31.6-35.5) g/dL RDW (11.5-14.5) % Plt Count (140-400) K/mcL MPV (9.4-12.4) fL Immature Gran % (0-4) % Seg Neutrophils % % Lymphocytes % % Monocytes % % Eosinophils % % Basophils % % Neutrophils # (1.6-8.9) K/mcL Lymphocytes # (0.6-4.6) K/mcL Monocytes # (0.0-1.3) K/mcL Eosinophils # (0.0-0.6) K/mcL Basophils # (0.0-0.2) K/mcL ABG pH 7.33 (7.32-7.45) pH Units ABG pCO2 53 H (35-45) mmHg ABG pO2 61 L (85-104) mmHg ABG HCO3 27.9 H (21-27) mEQ/L ABG Total CO2 29.5 H (20-26) mEq/L ABG O2 Saturation 89 L (95-98) % ABG Base Excess 1.4 (-2.0 to 3.0) mEq/L Blood Gas Modality BIPAP Inspired O2 50 % Sodium (136-145) mEq/L Potassium (3.5-4.5) mEq/L Chloride (98-109) mEq/L Carbon Dioxide (19-29) mEq/L BUN (8-26) mg/dL Creatinine (0.72-1.25) mg/dL Est GFR ( Amer) (> 60) Est GFR (Non-Af Amer) (> 60) BUN/Creatinine Ratio (6-26) Glucose (70-99) mg/dL Calculated Osmolality (280-300) Lactic Acid (0.5-2.2) mmol/L Calcium (8.6-10.8) mg/dL Troponin I 0.02 (0-0.03) ng/mL B-Natriuretic Peptide 3609 H (0-100) pg/mL - Radiology Data Radiology results reviewed: Yes I reviewed the patient's radiology results. Chest X-Ray 06/06/17 07:19 IMPRESSION: 1. Cardiomegaly with increased vascular markings and likely interstitial edema. 2. Chronic, moderate right pleural effusion is noted. There is persistent dense consolidation or atelectasis of the right lower lobe and right middle lobe, with similar findings on the prior exam. D/ / 06/06/2017 07:59:36 Oscar Mckeon MD / reggie Interpreting Provider: Oscar Mckeon MD - EKG Data EKG #1 EKG attestation: Yes I reviewed and interpreted this EKG. EKG results narrative: Normal sinus rhythm at a rate of 81. MT interval is 128. Chest respirations 100. QT is 390. QTC is 428. No signs of acute ischemia. No significant change in previous EKG dated 05/07/2017.
[2017-06-06 07:38] LABS: ABG Base Excess 1.4 mEq/L (-2.0 to 3.0); ABG HCO3 27.9 mEQ/L (21-27); ABG Oxygen Saturation 89 % (95-98); ABG PCO2 53 mmHg (35-45); ABG PH 7.33 pH Units (7.32-7.45); ABG PO2 61 mmHg (85-104); ABG TCO2 29.5 mEq/L (20-26); Basophils # 0.1 K/mcL (0.0-0.2); Blood Gas FiO2 50 %; Eosinophils # 0.5 K/mcL (0.0-0.6); Eosinophils % 6.3 %; Hematocrit 30.6 % (37.5-50.1); Hemoglobin 9.8 g/dL (12.9-16.9); Immature Granulocytes % 0.4 % (0-4); Lymphocytes # 2.8 K/mcL (0.6-4.6); Lymphocytes % 38.3 %; Mean Corpuscular Volume 90.5 fL (83.0-100.0); Mean Platelet Volume 8.9 fL (9.4-12.4); Monocytes # 0.5 K/mcL (0.0-1.3); Monocytes % 6.8 %; Neutrophils # 3.5 K/mcL (1.6-8.9); Platelet Count 275 K/mcL (140-400); Red Blood Count 3.38 M/mcL (4.19-5.50); Red Cell Distribution Width 14.6 % (11.5-14.5); Segmented Neutrophils % 47.2 %
[2017-06-06] MEDS: Nitroglycerin 25 MG/250 ML INFUS..BTL IVC SCH (07:47)
[2017-06-06 07:48] LABS: Calcium 8.5 mg/dL (8.6-10.8); Potassium 4.2 mEq/L (3.5-4.5)
[2017-06-06] MEDS ORDERED: Acetaminophen 325 MG TABLET PO PRN (09:16)
[2017-06-06] MEDS ORDERED: Naloxone 0.4 MG/ML INJ IVP PRN (09:16)
[2017-06-06] MEDS ORDERED: Ondansetron 4 MG/2 ML VIAL IVP PRN (09:31)
[2017-06-06] MEDS ORDERED: *HR* Morphine 2 MG/ML SYRINGE IVP PRN (09:31)
[2017-06-06] MEDS ORDERED: *HR* HYDROcodone/Acet 5/325 mg TABLET PO PRN (09:31)
[2017-06-06] MEDS ORDERED: Albuterol 2.5 MG/3 ML NEBULIZER IH PRN (09:54)
[2017-06-06] MEDS ORDERED: Vancomycin 1,250 MG in D5% in Water 250 ML IVPB SCH (10:00)
--- NOTE | 2017-06-06 10:04 | Internal Med History&Physical ---
<Tayler Clarke - Last Filed: 06/06/17 14:05> Date of Encounter: 06/06/17 Time of Encounter: 08:30 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 Plan (1) Acute exacerbation of CHF (congestive heart failure) Current visit: Yes Status: Acute Patient presents via EMS with severe dyspnea in respiratory distress, was found at home hypoxic at 66%. Patient responded to BiPAP therapy, duonebs, lasix, solumedrol, nitro administration. Fluid overloaded on exam. Rales throughout, edema of b/l LE/UE. BNP 3609 Patient states he has been compliant with medications and HD but has not been compliant with diet. Nephrology consulted, appreciate their recommendations. Plan: -Continue BiPAP, removing it only for meals and medication administration -Diuresis per nephrology, patient will also have HD today -Continue home meds -1.5L fluid restriction -Daily weights -Strict I/Os Qualifiers: Congestive heart failure type: systolic Qualified Code(s): I50.23 - Acute on chronic systolic (congestive) heart failure (2) Acute on chronic respiratory failure with hypoxia and hypercapnia Current visit: Yes Status: Acute Patient has COPD, CHF, ESRD on HD. On 4L O2 at home Was SOB with hypoxia at home, responding to BiPAP therapy. Plan: -Continue BiPAP, removing it only for meals and medication administration -Duonebs Q4h with prn albuterol nebs -Continue home inhaler therapy (3) Pulmonary edema Current visit: Yes Status: Acute Patient fluid overloaded, dyspnea and hypoxia with diffuse rales on exam Plan: -BiPAP -Diuresis per nephrology Qualifiers: Chronicity: acute Qualified Code(s): J81.0 - Acute pulmonary edema (4) ESRD (end stage renal disease) on dialysis Current visit: Yes Status: Chronic ESRD on HD MWF, patient of [facility] Patient states he still makes urine States he has not missed HD, is compliant with meds Nephrology consulted, case discussed with Dr. Richter who plans for HD today and will manage lasix dosing. Plan: -Continue home meds -Renal diet with 1.5L fluid restriction -Lasix per nephrology -HD today -AM CMP, CBC, Mag, Phos -I/Os, daily weights -Renally dose medications, avoid nephrotoxins when possible (5) Anemia in chronic kidney disease Current visit: Yes Status: Chronic Qualifiers: Chronic kidney disease stage: on chronic dialysis Qualified Code(s): N18.6 - End stage renal disease; D63.1 - Anemia in chronic kidney disease; Z99.2 - Dependence on renal dialysis (6) Generalized weakness Current visit: Yes Status: Acute Patient notes increased weakness and multiple falls without trauma to his head or LOC last week. Plan: -SW consult -Pt/OT (7) COPD (chronic obstructive pulmonary disease) Current visit: Yes Status: Chronic Patient on 4L oxygen at home, CPAP at night Continue home meds, does not seem to be in exacerbation Qualifiers: COPD type: unspecified COPD Qualified Code(s): J44.9 - Chronic obstructive pulmonary disease, unspecified (8) HTN (hypertension) Current visit: Yes Status: Chronic Patient was hypertensive on arrival in the 200's systolic. Was given nitro SL in the ED with nitro gtt started. BP responded, but is increasing to 180's systolic Plan: -Will give home PO BP meds now -titrate off nitro gtt -PRN hydralazine SBP>160 -will continue to monitor Qualifiers: Hypertension type: renovascular hypertension Qualified Code(s): I15.0 - Renovascular hypertension (9) DEE (obstructive sleep apnea) Current visit: No Status: Chronic (10) Hyperlipidemia Current visit: No Status: Chronic Continue statin Qualifiers: Hyperlipidemia type: unspecified Qualified Code(s): E78.5 - Hyperlipidemia , unspecified (11) CAD (coronary artery disease) Current visit: No Status: Chronic Continue ASA, imdur Qualifiers: Coronary Disease-Associated Artery/Lesion type: [place] artery [place] vs. transplanted heart: [place] heart Associated angina: angina presence unspecified Qualified Code(s): I25.10 - Atherosclerotic heart disease of [place] coronary artery without angina pectoris (12) GERD (gastroesophageal reflux disease) Current visit: Yes Status: Acute omeprazole Qualifiers: Esophagitis presence: without esophagitis Qualified Code(s): K21.9 - Gastro -esophageal reflux disease without esophagitis (13) History of MRSA infection Current visit: Yes Status: Acute Patient has a recent history of MRSA bacteremia, was hospitalized at the end of April/beginning of May 2017. Was discharged on IV Vancomycin that is administered with HD sessions until 06/11. Plan: -Will continue vanc with HD, pharmacy to dose -Contact precautions (14) DVT prophylaxis Current visit: No Status: Acute Heparin SQ Internal Medicine - H&P: HPI Chief complaint: Dyspnea Admitted From: Emergency Dept Plans for Post Hospital Care: Home History of present illness: Mr. Castro is a 52 year old male with a PMH of ESRD on HD MWF, CHF, COPD, CAD, RI, HTN, HLD, PAD, GERD, and osteoporosis who presented to the [facility] ED this morning via EMS. He was found at home with dyspnea and was hypoxic at 66%. He was extremely hypertensive on arrival with SBP in the 200's. He states that he has been feeling more and more weak over the last few days and woke up this morning unable to breath. He also notes that last week he was weak and fell several times, not hitting his head without LOC. He states that he has not missed any HD sessions and has been compliant with all of his medications. He does admit that he has not been very compliant with his diet and has been drinking more fluids than he should. He states that he has had increased bilateral LE edema over the last several days. He was placed on BiPAP in the ED and received duonebs, 125mg solumedrol, 80mg IV lasix, nitro SL and was placed on a nitro gtt. His breathing and BP responded well to therapy and he was resting comfortably on BIPAP upon my arrival in the ED. The patient denies LAWSON, dizziness, syncope, fevers, chills, CP, palpitations, abdominal pain, N/V/D, rashes. Nephrology was consulted by the ED and Dr. Richter will evaluate the patient and arrange HD. He will be admitted to the hospitalist service for further treatment. Past Med Surg Social Fam HX - Past Medical History Medical history: arthritis, CHF, COPD, coronary artery disease, dialysis, GERD, hyperlipidemia, hypertension, myocardial infarction, osteoporosis, peripheral artery disease, renal disease, other Psychiatric history: anxiety, bipolar, depression, other - Past Surgical History Surgical History: non-contributory, vascular surgery, other - Social History Smoking Status: Current every day smoker Smokeless Tobacco Status: Yes Alcohol use: none Drug use: marijuana - Family History Mother Living Status: Hx Family Cardiac Disorders: Yes Father Living Status: Hx Family Cardiac Disorders: Yes Hx Family Cancer: Yes Internal Medicine - H&P: Meds RX: Citalopram [CeleXA] 40 mg PO DAILY 10/02/15 [History] RX: Fluticasone/Salmeterol [Advair 250-50 Diskus] 1 puff IH BID 10/02/15 [ History] RX: Furosemide [Lasix] 40 mg PO BID 10/02/15 [History] RX: Lidocaine Patch [Lidoderm 5% patch] 1 patch TP DAILY 10/02/15 [History] RX: hydrOXYzine HCl [Hydroxyzine HCl] 25 mg PO TID 10/02/15 [History] RX: Isosorbide MONOnitrate (24 HR) [Imdur] 30 mg PO DAILY #30 tab.er.24h [Rx] RX: Ferrous Sulfate [Iron] 325 mg PO DAILY 10/04/16 [History] RX: Carvedilol [Coreg] 6.25 mg PO BID 11/03/16 [History] RX: Ergocalciferol (VITAMIN D2) [Vitamin D2] 50,000 unit PO QWEEK 11/03/16 [ History] RX: Lisinopril [Zestril] 10 mg PO DAILY 11/03/16 [History] RX: Simvastatin [Zocor] 40 mg PO HS 11/03/16 [History] RX: Tizanidine HCl [Zanaflex] 4 mg PO TID 11/03/16 [History] RX: Ipratropium/Albuterol Sulfate [Combivent Respimat Inhal Stoll[place]] 1 puff IH QID 11/19/16 [History] RX: Aspirin 81 mg PO DAILY #30 tab.chew 11/24/16 [Rx] RX: Albuterol Sulfate [Proair Hfa] 2 puff IH Q4H PRN 05/08/17 [History] RX: BuPROPion SR (12 HR) [Wellbutrin SR] 150 mg PO BID 05/08/17 [History] RX: Calcium Acetate [Phos-LO] 1,334 mg PO TIDWM 05/08/17 [History] RX: Metoprolol Tartrate [Lopressor] 50 mg PO DAILY 05/08/17 [History] RX: Mupirocin [Bactroban Oint] 1 appl TP BID 05/08/17 [History] RX: Ondansetron HCl [Zofran] 4 mg PO BID 05/08/17 [History] RX: Potassium Chloride [Klor-Con 10] 10 meq PO BID 05/08/17 [History] RX: Sevelamer [Renvela] 2,400 mg PO TIDWM 05/08/17 [History] RX: Tramadol HCl [Ultram] 50 mg PO TID PRN 05/08/17 [History] RX: Gabapentin [Neurontin] 600 mg PO TID #180 cap 05/20/17 [Rx] 3 Allergy/AdvReac Type Severity Reaction Status Date / Time bee venom protein (honey bee) AdvReac Swelling Verified 06/06/17 07:57 of Lip/Tongue/Throat potassium AdvReac Vomiting Verified 06/06/17 07:57 prednisone AdvReac Vomiting Verified 06/06/17 07:57 All Systems PM: A 10-system review of systems was performed and is negative for pertinent findings except as documented above in the HPI. - Constitutional Vitals: Temp Pulse Resp BP Pulse Ox 96.1 F L 63 18 182/96 100 06/06/17 09:24 06/06/17 09:24 06/06/17 09:24 06/06/17 09:24 06/06/17 09:24 General appearance: Present: cooperative, disheveled, mild distress, A&O X 3, pleasant, answers questions appropriately - Head Head exam: Present: atraumatic, normocephalic - Eye Eye exam: Present: EOMI Pupils: Present: unequal (Right 4mm, Left 3mm) - Neck Neck exam general surgery: Present: supple, trachea midline. Absent: lymphadenopathy - Respiratory Respiratory exam: Present: accessory muscle use, rales, respiratory distress, tachypnea - Expanded Respiratory Exam Location: rales: Left, Right, Upper, Lower - Cardiovascular Cardiovascular exam: Present: distant heart sounds - GI/Abdominal GI/Abdominal exam: Present: firm, normal bowel sounds, no peritoneal signs. Absent: distended, tenderness - Extremities Exam Extremities exam: Present: full ROM, normal capillary refill, pedal edema (U/LE b/l), warm, radial pulses palpable and symmetrical. Absent: calf tenderness - Neurological Exam Neurological exam: Present: alert, CN II-XII intact, oriented X3, no focal deficits, strengths equal and symetr throughout. Absent: motor sensory deficit - Psychiatric Psychiatric exam: Present: normal affect, normal mood - Skin Skin exam: Present: dry, excoriation (left shoulder), warm. Absent: erythema, rash Internal Med - H&P Results - Labs CBC & Chem 7: 06/06/17 07:27 06/06/17 07:27 <Coretta Claudio - Last Filed: 06/06/17 15:01> Date of Encounter: 06/06/17 Time of Encounter: 14:00 Internal Medicine - H&P: HPI History of present illness: Mr. Castro is a 52 year old male All Systems PM: A 10-system review of systems was performed and is negative for pertinent findings except as documented above in the HPI. - Constitutional Vitals: Temp Pulse Resp BP Pulse Ox 97.8 F 68 22 144/85 98 06/06/17 11:35 06/06/17 11:08 06/06/17 11:35 06/06/17 13:35 06/06/17 11:08 Internal Med - H&P Results - Labs CBC & Chem 7: 06/06/17 07:27 06/06/17 07:27 - Attending Attestation Patient independently seen and examined in Hemodialysis. Admitted for CHF decompensation due to non compliance with diet continue CHARGER TESTER for volume removal Nephrology on board and consultation appreciated Case discussed with resident physician Dr. Maris Gould, I agree with her documented findings, assessment, and plan.
[2017-06-06] MEDS ORDERED: traMADol 50 MG TABLET PO PRN (10:18)
[2017-06-06 10:19] LABS: Hepatitis B Surface Antigen Nonreactive (Nonreactive)
[2017-06-06 10:24] LABS: Hepatitis B Surface Antibody 485.58 mIU/mL
[2017-06-06] MEDS ORDERED: 0.9 % Sodium Chloride 250 ML IVC PRN (10:53)
[2017-06-06] MEDS ORDERED: *HR* Heparin 10,000 UNIT/10 ML VIAL IV PRN (10:53)
[2017-06-06] MEDS: BuPROPion SR (12 HR) 150 MG TABLET PO SCH ×2 (10:54→21:03)
[2017-06-06] MEDS: Isosorbide MONOnitrate (24 HR) 30 MG TAB.ER.24H PO SCH (10:54)
[2017-06-06] MEDS ORDERED: 0.9 % Sodium Chloride 1,000 ML PRIME SCH (11:00)
--- NOTE | 2017-06-06 11:29 | Nephrology Consult Note ---
Date of Encounter: 06/06/17 Time of Encounter: 10:30 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 Plan (1) Acute exacerbation of CHF (congestive heart failure) Current Visit: Yes Status: Acute Urgent dialysis for fluid removal. Patient on a nitro drip as well. Qualifiers: Congestive heart failure type: systolic Qualified Code(s): I50.23 - Acute on chronic systolic (congestive) heart failure (2) History of MRSA infection Current Visit: Yes Status: Acute Continue vancomycin per pharmacy dosing. (3) ESRD (end stage renal disease) on dialysis Current Visit: Yes Status: Chronic Plan for dialysis today. UF goal of 5 kg as tolerated. Will check for dialysis needs on Friday. Renal diet. Adjust medications for renal function. Patient was seen while on dialysis. (4) HTN (hypertension) Current Visit: Yes Status: Chronic Uncontrolled hypertension. Improved on nitro drip. Should improve with dialysis. Qualifiers: Hypertension type: renovascular hypertension Qualified Code(s): I15.0 - Renovascular hypertension History of Present Illness - Reason for Consult Consult date: 06/06/17 end stage renal disease - Chief Complaint Dyspnea - History of Present Illness Mr. Castro is a 52 yo man with ESRD followed by [facility] in with shortness of breath. History is from review of the admission H&P as the patient is on BiPap and unable to provide a history. Patient apparently has been adherent to his dialysis prescription, but developed shortness of breath. Consult was placed for ongoing dialysis needs. Past Med Surg Social Fam HX - Past Medical History Medical history: arthritis, CHF, COPD, coronary artery disease, dialysis, GERD, hyperlipidemia, hypertension, myocardial infarction, osteoporosis, peripheral artery disease, renal disease, other Psychiatric history: anxiety, bipolar, depression, other - Past Surgical History Surgical History: non-contributory, vascular surgery, other - Social History Smoking Status: Current every day smoker Smokeless Tobacco Status: Yes Alcohol use: none Drug use: marijuana - Family History Mother Living Status: Hx Family Cardiac Disorders: Yes Father Living Status: Hx Family Cardiac Disorders: Yes Hx Family Cancer: Yes Medications and Allergies Citalopram [CeleXA] 40 mg PO DAILY 10/02/15 [History] Fluticasone/Salmeterol [Advair 250-50 Diskus] 1 puff IH BID 10/02/15 [History] Furosemide [Lasix] 40 mg PO BID 10/02/15 [History] Lidocaine Patch [Lidoderm 5% patch] 1 patch TP DAILY 10/02/15 [History] hydrOXYzine HCl [Hydroxyzine HCl] 25 mg PO TID 10/02/15 [History] Isosorbide MONOnitrate (24 HR) [Imdur] 30 mg PO DAILY #30 tab.er.24h 09/03/16 [ Rx] Ferrous Sulfate [Iron] 325 mg PO DAILY 10/04/16 [History] Carvedilol [Coreg] 6.25 mg PO BID 11/03/16 [History] Ergocalciferol (VITAMIN D2) [Vitamin D2] 50,000 unit PO QWEEK 11/03/16 [History] Lisinopril [Zestril] 10 mg PO DAILY 11/03/16 [History] Simvastatin [Zocor] 40 mg PO HS 11/03/16 [History] Tizanidine HCl [Zanaflex] 4 mg PO TID 11/03/16 [History] Ipratropium/Albuterol Sulfate [Combivent Respimat Inhal Mikana] 1 puff IH QID 04/28 [History] Aspirin 81 mg PO DAILY #30 tab.chew 11/24/16 [Rx] Albuterol Sulfate [Proair Hfa] 2 puff IH Q4H PRN 05/08/17 [History] BuPROPion SR (12 HR) [Wellbutrin SR] 150 mg PO BID 05/08/17 [History] Calcium Acetate [Phos-LO] 1,334 mg PO TIDWM 05/08/17 [History] Metoprolol Tartrate [Lopressor] 50 mg PO DAILY 05/08/17 [History] Mupirocin [Bactroban Oint] 1 appl TP BID 05/08/17 [History] Ondansetron HCl [Zofran] 4 mg PO BID 05/08/17 [History] Potassium Chloride [Klor-Con 10] 10 meq PO BID 05/08/17 [History] Sevelamer [Renvela] 2,400 mg PO TIDWM 05/08/17 [History] Tramadol HCl [Ultram] 50 mg PO TID PRN 05/08/17 [History] Gabapentin [Neurontin] 600 mg PO TID #180 cap 05/20/17 [Rx] 3 Allergy/AdvReac Type Severity Reaction Status Date / Time bee venom protein (honey bee) AdvReac Swelling Verified 06/06/17 07:57 of Lip/Tongue/Throat potassium AdvReac Vomiting Verified 06/06/17 07:57 prednisone AdvReac Vomiting Verified 06/06/17 07:57 Review of Systems ROS unobtainable: other (Patient on bipap and unable to answer questions. ) Exam - Vital Signs Vital signs: Initial Vital Signs Temp Pulse Resp BP Pulse Ox 0 F L 72 30 183/101 95 06/06/17 07:16 06/06/17 07:16 06/06/17 07:16 06/06/17 07:16 06/06/17 07:16 Vital Signs - Last 8 Hours Temp Pulse Resp BP Pulse Ox 06/06/17 11:08 96.9 F L 68 22 194/101 98 06/06/17 09:24 96.1 F L 63 18 182/96 100 06/06/17 09:16 96.1 F L 63 23 182/96 100 06/06/17 08:41 22 165/91 Intake and Output 06/05/17 06/06/17 06/06/17 23:59 07:59 15:59 Intake Total 0 / 0 Balance 0 / 0 Intake: Oral 0 / 0 - General Appearance General appearance: well-developed, well-nourished Exam: on bipap and did not answer questions. EENT: ATNC Neck: supple Respiratory: course breath sounds Cardiology: edema, regular rate, regular rhythm - Dialysis Access Dialysis Vascular Access: Venous Catheter Gastrointestinal: no tenderness Integumentary: warm and dry Neurologic: confused Musculoskeletal: no cyanosis Psychiatric: agitated Results - Lab Results 06/06/17 07:27 06/06/17 07:27 Most recent lab results ABG pH 7.33 pH Units (7.32-7.45) 06/06/17 07:27 ABG pCO2 53 mmHg (35-45) H 06/06/17 07:27 ABG pO2 61 mmHg (85-104) L 06/06/17 07:27 ABG HCO3 27.9 mEQ/L (21-27) H 06/06/17 07:27 ABG O2 Saturation 89 % (95-98) L 06/06/17 07:27 Calcium 8.5 mg/dL (8.6-10.8) L 06/06/17 07:27 Consult Discharge Plan - Plan Referrals: Nallely Hanna, MEKHI [Primary Care Provider] -
[2017-06-06] MEDS ORDERED: D5 IVPB SCH (12:00)
[2017-06-06] MEDS ORDERED: VANCOMYCIN IVPB SCH (12:00)
[2017-06-06] MEDS ORDERED: WATER IVPB SCH (12:00)
[2017-06-06] MEDS: Ipratropium/Albuterol Neb 3 ML IH SCH ×4 (12:29→23:04)
[2017-06-06] MEDS: Budesonide/Formoterol 80/4.5 MDI IH SCH ×2 (12:29→19:54)
[2017-06-06] MEDS ORDERED: 0.9 % Sodium Chloride 1,000 ML ONE (13:11)
[2017-06-06] MEDS ORDERED: Vancomycin 1,250 MG in D5% in Water 250 ML IVPB ONE (15:00)
[2017-06-06] MEDS: Calcium Acetate 667 MG CAPSULE PO SCH ×2 (16:38→16:44)
[2017-06-06] MEDS: hydrOXYzine pamoate 25 MG CAPSULE PO SCH ×2 (16:44→21:06)
[2017-06-06] MEDS: *HR* Heparin 5,000 UNIT/ML VIAL SQ SCH ×2 (16:45→21:07)
[2017-06-06] MEDS: Gabapentin 300 MG CAPSULE PO SCH (21:07)
[2017-06-06] MEDS: *HR* OxyCODONE/APAP 5/325 TABLET PO PRN (21:12)
[2017-06-07] MEDS ORDERED: Vancomycin 1,250 MG in D5% in Water 250 ML IVPB ONE (01:00)
[2017-06-07] MEDS: *HR* OxyCODONE/APAP 5/325 TABLET PO PRN ×4 (01:34→23:23)
[2017-06-07] MEDS: Ipratropium/Albuterol Neb 3 ML IH SCH ×6 (04:19→23:32)
[2017-06-07 05:14] LABS: Basophils % 0.2 %; Hematocrit 23.7 % (37.5-50.1); Immature Granulocytes % 1.1 % (0-4); Lymphocytes # 1.2 K/mcL (0.6-4.6); Mean Corpuscular HGB Conc 32.9 g/dL (31.6-35.5); Mean Corpuscular Hemoglobin 28.9 pg (28.0-33.3); Mean Corpuscular Volume 87.8 fL (83.0-100.0); Mean Platelet Volume 9.9 fL (9.4-12.4); Monocytes # 0.3 K/mcL (0.0-1.3); Monocytes % 5.4 %; Neutrophils # 3.1 K/mcL (1.6-8.9); Platelet Count 182 K/mcL (140-400); Red Cell Distribution Width 14.3 % (11.5-14.5); Segmented Neutrophils % 67.3 %
[2017-06-07 05:15] LABS: Hemoglobin 7.8 g/dL (12.9-16.9)
[2017-06-07 05:30] LABS: Albumin 2.3 g/dL (3.5-5.0); Albumin/Globulin Ratio 0.6 (1.1-2.2); Bilirubin,Total 0.4 mg/dL (0.2-1.2); Globulin 3.6 g/dL (2.4-3.5); Magnesium 1.4 mg/dL (1.6-2.6); Phosphorous 1.4 mg/dL (2.3-4.7); Potassium 4.1 mEq/L (3.5-4.5); Total Protein 5.9 g/dL (6.0-8.3)
[2017-06-07] MEDS: *HR* Heparin 5,000 UNIT/ML VIAL SQ SCH ×3 (06:37→23:11)
[2017-06-07] MEDS: Nitroglycerin 25 MG/250 ML INFUS..BTL IVC SCH (08:05)
[2017-06-07] MEDS: Calcium Acetate 667 MG CAPSULE PO SCH ×3 (09:01→16:50)
[2017-06-07] MEDS: hydrOXYzine pamoate 25 MG CAPSULE PO SCH ×3 (09:02→23:11)
[2017-06-07] MEDS: Isosorbide MONOnitrate (24 HR) 30 MG TAB.ER.24H PO SCH (09:02)
[2017-06-07] MEDS: Gabapentin 300 MG CAPSULE PO SCH ×3 (09:02→23:11)
[2017-06-07] MEDS: Aspirin 81 MG TAB.CHEW PO SCH (09:02)
[2017-06-07] MEDS: BuPROPion SR (12 HR) 150 MG TABLET PO SCH ×2 (09:02→23:11)
[2017-06-07 09:18] LABS: Hematocrit 25.8 % (37.5-50.1); Hemoglobin 8.3 g/dL (12.9-16.9); Immature Granulocytes % 0.4 % (0-4); Immature Platelets 3.1 % (1.1-6.1); Lymphocytes # 1.5 K/mcL (0.6-4.6); Lymphocytes % 21.8 %; Mean Corpuscular HGB Conc 32.2 g/dL (31.6-35.5); Mean Corpuscular Hemoglobin 28.7 pg (28.0-33.3); Mean Corpuscular Volume 89.3 fL (83.0-100.0); Mean Platelet Volume 9.7 fL (9.4-12.4); Monocytes # 0.4 K/mcL (0.0-1.3); Platelet Count 227 K/mcL (140-400); Red Blood Count 2.89 M/mcL (4.19-5.50); Red Cell Distribution Width 14.4 % (11.5-14.5); Segmented Neutrophils % 71.8 %
[2017-06-07] MEDS ORDERED: 0.9 % Sodium Chloride 1,000 ML PRIME SCH (10:00)
[2017-06-07] MEDS ORDERED: 0.9 % Sodium Chloride 250 ML IVC PRN (10:00)
--- NOTE | 2017-06-07 10:04 | Nephrology Progress Note ---
Date of Encounter: 06/07/17 Time of Encounter: 10:02 - 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 Plan (1) Acute exacerbation of CHF (congestive heart failure) Current Visit: Yes Status: Acute Improved with UF. Breathing close to baseline. Per primary team. Qualifiers: Congestive heart failure type: systolic Qualified Code(s): I50.23 - Acute on chronic systolic (congestive) heart failure (2) History of MRSA infection Current Visit: Yes Status: Acute Patient on isolation. Continue vancomycin. (3) ESRD (end stage renal disease) on dialysis Current Visit: Yes Status: Chronic HD MWF. Will perform UF for fluid removal as the patient seems to be volume positive based on his exam. (4) HTN (hypertension) Current Visit: Yes Status: Chronic Blood pressure better. Qualifiers: Hypertension type: renovascular hypertension Qualified Code(s): I15.0 - Renovascular hypertension (5) Anemia Current Visit: Yes Status: Acute hemoglobin decreased this a.m., but upon repeat was closer to yesterday's level. At this time he has no active bleeding. We will check iron stores, vitamin B12 and folate. Subjective Principal diagnosis: ESRD Interval history: Patient seen. He states he feels better and that his breathing is baseline. He denies chest pain. His review of systems overall is stable. He wants to go home. Objective - Vital Signs Vital signs: Vital Signs Temp Pulse Resp BP Pulse Ox 06/07/17 08:00 97.8 F 75 18 128/54 100 Intake and Output 06/06/17 06/07/17 06/07/17 23:59 07:59 15:59 Intake Total 360 / 360 Balance 360 / 360 Intake: Oral 360 / 360 Other: Meal Breakfast Percent of Meal Consumed 100% - General Appearance General appearance: Present: well-developed, well-nourished EENT: Present: ATNC Neck: Present: supple Additional Comments: Rales in the bases right greater than left. Cardiology: Present: no edema, regular rate, regular rhythm Dialysis Vascular Access: Venous Catheter Integumentary: Present: warm and dry Neurologic: Present: alert and oriented x3 Musculoskeletal: Present: no cyanosis Psychiatric: Present: mood/affect appropriate - Lab 06/07/17 08:47 06/07/17 03:49 Most recent lab results ABG pH 7.33 pH Units (7.32-7.45) 06/06/17 07:27 ABG pCO2 53 mmHg (35-45) H 06/06/17 07:27 ABG pO2 61 mmHg (85-104) L 06/06/17 07:27 ABG HCO3 27.9 mEQ/L (21-27) H 06/06/17 07:27 ABG O2 Saturation 89 % (95-98) L 06/06/17 07:27 Calcium 8.0 mg/dL (8.6-10.8) L 06/07/17 03:49 Phosphorus 1.4 mg/dL (2.3-4.7) L 06/07/17 03:49 Magnesium 1.4 mg/dL (1.6-2.6) L 06/07/17 03:49 Consult Discharge Plan - Plan Referrals: Nallely Hanna, MEKHI [Primary Care Provider] -
[2017-06-07] MEDS: Budesonide/Formoterol 80/4.5 MDI IH SCH ×2 (11:17→20:02)
[2017-06-07 11:59] LABS: Folate 1.5 ng/mL (7.0-31.4)
--- NOTE | 2017-06-07 14:01 | Internal Med Progress Note ---
<Lillie Taylor - Last Filed: 06/07/17 13:56> Date of Encounter: 06/07/17 Time of Encounter: 13:56 - 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 plan (1) Acute systolic CHF (congestive heart failure) Current Visit: No Status: Acute 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 plan: Patient presents via EMS with severe dyspnea in respiratory distress, was found at home hypoxic at 66%. Patient responded to BiPAP therapy, duonebs, lasix, solumedrol, nitro administration. Patient states he has been compliant with medications and HD but has not been compliant with diet. Plan: -Diuresis/HD per nephrology -Continue home meds -1.5L fluid restriction -Daily weights -Strict I/Os likely discharge home tomorrow. (2) Acute on chronic respiratory failure with hypoxia and hypercapnia Current Visit: Yes Status: Acute 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 plan: Patient has COPD, CHF, ESRD on HD. On 4L O2 at home Was SOB with hypoxia at home, responded Plan: -Duonebs Q4h with prn albuterol nebs -Continue home inhaler therapy (3) Pulmonary edema Current Visit: Yes Status: Acute 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 plan: Patient fluid overloaded, dyspnea and hypoxia with diffuse rales on exam Plan: -BiPAP -Diuresis per nephrology Qualifiers: Chronicity: acute Qualified Code(s): J81.0 - Acute pulmonary edema (4) ESRD (end stage renal disease) on dialysis Current Visit: Yes Status: Chronic 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 plan: ESRD on HD MWF, patient of [facility] Patient states he still makes urine States he has not missed HD, is compliant with meds Plan: -Continue home meds -Renal diet with 1.5L fluid restriction -Lasix per nephrology -HD per nephro -I/Os, daily weights -Renally dose medications, avoid nephrotoxins when possible (5) Anemia Current Visit: No Status: Chronic 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 plan: anemia on chronic disease. Qualifiers: Anemia type: unspecified type Qualified Code(s): D64.9 - Anemia, unspecified (6) Generalized weakness Current Visit: Yes Status: Acute 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 plan: Pt/OT hx of multiple falls PT recommends to return to prior living arrangement. (7) Hypertension Current Visit: No Status: Acute 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 plan: was hypertensive upon admission with BP in 200s got nitro SL and nitro gtt plan: continue home BP meds dialysis per nephrology. Qualifiers: Hypertension type: essential hypertension Qualified Code(s): I10 - Essential (primary) hypertension (8) DEE (obstructive sleep apnea) Current Visit: No Status: Chronic 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 plan: CPAP/BIPAP at night. (9) Hyperlipidemia Current Visit: No Status: Chronic 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 plan: continue statin Qualifiers: Hyperlipidemia type: unspecified Qualified Code(s): E78.5 - Hyperlipidemia , unspecified (10) CAD (coronary artery disease) Current Visit: No Status: Chronic 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 plan: ASA, Statin, BB Qualifiers: Coronary Disease-Associated Artery/Lesion type: [place] artery [place] vs. transplanted heart: [place] heart Associated angina: angina presence unspecified Qualified Code(s): I25.10 - Atherosclerotic heart disease of [place] coronary artery without angina pectoris (11) GERD (gastroesophageal reflux disease) Current Visit: Yes Status: Acute 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 plan: omeprazole Qualifiers: Esophagitis presence: without esophagitis Qualified Code(s): K21.9 - Gastro -esophageal reflux disease without esophagitis (12) History of MRSA infection Current Visit: Yes Status: Acute 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 plan: Patient has a recent history of MRSA bacteremia, was hospitalized at the end of April/beginning of May 2017. Was discharged on IV Vancomycin that is administered with HD sessions until 06/11. Plan: -Will continue vanc with HD, pharmacy to dose -Contact precautions (13) DVT prophylaxis Current Visit: No Status: Acute 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 plan: heparin SQ - Subjective Interval history: 52 year old male evaluated at bedside. patient denies nausea, vomiting, diarrhea , fever, chills, chest pain, shortness of breath. he denies any further complaints today. - Constitutional Vitals: Temp Pulse Resp BP Pulse Ox 98.4 F 75 18 162/86 100 06/07/17 12:26 06/07/17 08:00 06/07/17 12:26 06/07/17 12:26 06/07/17 08:00 General appearance: Present: cooperative, disheveled, mild distress, A&O X 3, pleasant, answers questions appropriately - Head Head exam: Present: atraumatic, normocephalic - Neck Neck exam general surgery: Present: supple, trachea midline - Respiratory Additional comments: wheezing present. - Cardiovascular Cardiovascular exam: Present: RRR, +S1, +S2 - GI/Abdominal GI/Abdominal exam: Present: normal bowel sounds, soft. Absent: distended, tenderness - Extremities Exam Extremities exam: Absent: cyanotic, pedal edema - Back Exam Back exam: Absent: CVA tenderness (L), CVA tenderness (R) - Neurological Exam Neurological exam: Present: alert, oriented X3, no focal deficits - Psychiatric Psychiatric exam: Present: normal affect, normal mood Internal Medicine: Result - Labs CBC & Chem 7: 06/07/17 08:47 06/07/17 03:49 Labs: Short CBC 06/07/17 Range/Units 08:47 WBC 7.0 D (4.3-11.1) K/mcL Hgb 8.3 L (12.9-16.9) g/dL Hct 25.8 L (37.5-50.1) % Plt Count 227 (140-400) K/mcL Neutrophils # 5.0 (1.6-8.9) K/mcL - ABG Interpretation ABG results: ABG ABG pH 7.33 pH Units (7.32-7.45) 06/06/17 07:27 ABG pCO2 53 mmHg (35-45) H 06/06/17 07:27 ABG pO2 61 mmHg (85-104) L 06/06/17 07:27 ABG O2 Saturation 89 % (95-98) L 06/06/17 07:27 Consult Discharge Plan - Plan Referrals: Nallely Hanna, MANAGER TRAINEE [Primary Care Provider] - <German Leung - Last Filed: 06/07/17 14:46> Date of Encounter: 06/07/17 - Constitutional Vitals: Temp Pulse Resp BP Pulse Ox 98.4 F 75 18 162/86 100 06/07/17 12:26 06/07/17 08:00 06/07/17 12:26 06/07/17 12:26 06/07/17 08:00 Internal Medicine: Result - Labs CBC & Chem 7: 06/07/17 08:47 06/07/17 03:49 Labs: Short CBC 06/07/17 Range/Units 08:47 WBC 7.0 D (4.3-11.1) K/mcL Hgb 8.3 L (12.9-16.9) g/dL Hct 25.8 L (37.5-50.1) % Plt Count 227 (140-400) K/mcL Neutrophils # 5.0 (1.6-8.9) K/mcL - ABG Interpretation ABG results: ABG ABG pH 7.33 pH Units (7.32-7.45) 06/06/17 07:27 ABG pCO2 53 mmHg (35-45) H 06/06/17 07:27 ABG pO2 61 mmHg (85-104) L 06/06/17 07:27 ABG O2 Saturation 89 % (95-98) L 06/06/17 07:27 - Attending Attestation I examined this patient and my medical decision-making was reviewed with the Resident Physician. I agree with the documented findings, disposition and treatment plan as described except to the extent set forth below.
[2017-06-07] MEDS ORDERED: 0.9 % Sodium Chloride 1,000 ML ONE (18:34)
[2017-06-08] MEDS: Ipratropium/Albuterol Neb 3 ML IH SCH ×6 (03:31→23:34)
[2017-06-08] MEDS: *HR* OxyCODONE/APAP 5/325 TABLET PO PRN ×4 (04:59→22:05)
[2017-06-08] MEDS: *HR* Heparin 5,000 UNIT/ML VIAL SQ SCH (05:01)
[2017-06-08 06:25] LABS: Basophils % 0.2 %; Eosinophils % 0.4 %; Hematocrit 24.2 % (37.5-50.1); Hemoglobin 7.7 g/dL (12.9-16.9); Immature Granulocytes % 0.4 % (0-4); Lymphocytes # 2.6 K/mcL (0.6-4.6); Lymphocytes % 30.9 %; Mean Corpuscular HGB Conc 31.8 g/dL (31.6-35.5); Mean Corpuscular Hemoglobin 28.8 pg (28.0-33.3); Mean Corpuscular Volume 90.6 fL (83.0-100.0); Mean Platelet Volume 9.8 fL (9.4-12.4); Monocytes # 0.7 K/mcL (0.0-1.3); Monocytes % 8.5 %; Platelet Count 181 K/mcL (140-400); Red Blood Count 2.67 M/mcL (4.19-5.50); Red Cell Distribution Width 14.7 % (11.5-14.5); Segmented Neutrophils % 59.6 %
[2017-06-08 06:31] LABS: Calcium 8.2 mg/dL (8.6-10.8); Potassium 4.3 mEq/L (3.5-4.5)
[2017-06-08] MEDS: Budesonide/Formoterol 80/4.5 MDI IH SCH ×2 (07:46→19:42)
[2017-06-08] MEDS: Gabapentin 300 MG CAPSULE PO SCH (08:19)
[2017-06-08] MEDS: Aspirin 81 MG TAB.CHEW PO SCH (08:19)
[2017-06-08] MEDS: Calcium Acetate 667 MG CAPSULE PO SCH (08:19)
[2017-06-08] MEDS: BuPROPion SR (12 HR) 150 MG TABLET PO SCH ×2 (08:19→21:26)
[2017-06-08] MEDS: Isosorbide MONOnitrate (24 HR) 30 MG TAB.ER.24H PO SCH (08:20)
[2017-06-08] MEDS: hydrOXYzine pamoate 25 MG CAPSULE PO SCH ×3 (08:20→21:26)
[2017-06-08] MEDS ORDERED: Magnesium Sulfate 2 GM in D5% in Water 100 ML IVPB ONE (08:53)
[2017-06-08] MEDS ORDERED: Sodium Phosphate 30 MMOL in D5% in Water 100 ML IVPB ONE (08:55)
--- NOTE | 2017-06-08 09:49 | Nephrology Progress Note ---
Date of Encounter: 06/08/17 Time of Encounter: 09:49 - 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 Plan (1) Acute exacerbation of CHF (congestive heart failure) Current Visit: Yes Status: Acute Improved with UF. Breathing close to baseline. Per primary team. Qualifiers: Congestive heart failure type: systolic Qualified Code(s): I50.23 - Acute on chronic systolic (congestive) heart failure (2) History of MRSA infection Current Visit: Yes Status: Acute Patient on isolation. Continue vancomycin. (3) ESRD (end stage renal disease) on dialysis Current Visit: Yes Status: Chronic HD MWF. Patient seems to be close to euvolemia. No HD/UF today. Renal dose medications. Renal diet. (4) HTN (hypertension) Current Visit: Yes Status: Chronic Blood pressure better. Qualifiers: Hypertension type: renovascular hypertension Qualified Code(s): I15.0 - Renovascular hypertension (5) Anemia Current Visit: Yes Status: Acute hemoglobin decreased again this a.m. Primary team plans to transfuse. Will transfuse on dialysis. Spoke with the team. Folate low - replacement ordered. Patient on oral iron. Qualifiers: Qualified Code(s): D64.9 - Anemia, unspecified (6) Hypophosphatemia Current Visit: Yes Status: Acute Binders discontinued. Replacement ordered. Monitor closely. vitamin d and pth ordered. (7) Hypomagnesemia Current Visit: Yes Status: Acute Replacement ordered. Subjective Principal diagnosis: ESRD Interval history: Patient seen. He states he feels better and that his breathing is baseline. He denies chest pain. His review of systems overall is stable. He wants to go home. Objective - Vital Signs Vital signs: Vital Signs Temp Pulse Resp BP Pulse Ox 06/08/17 08:24 96 06/08/17 07:47 16 99 06/08/17 07:20 98.3 F 73 14 176/96 100 06/08/17 04:47 73 16 161/79 94 06/08/17 00:05 97.5 F L 66 16 154/74 98 06/07/17 23:33 15 98 06/07/17 20:33 97.9 F 64 15 138/71 99 06/07/17 20:03 14 98 06/07/17 17:53 62 119/63 99 06/07/17 17:25 97.6 F 60 16 162/79 100 06/07/17 15:59 17 100 06/07/17 12:26 98.4 F 18 162/86 06/07/17 12:15 128/76 06/07/17 12:00 149/80 06/07/17 11:45 150/82 06/07/17 11:30 144/83 06/07/17 11:15 146/78 06/07/17 11:00 157/81 06/07/17 10:45 137/85 06/07/17 10:30 149/85 06/07/17 10:15 97.8 F 20 156/89 Intake and Output 06/07/17 06/08/17 06/08/17 23:59 07:59 15:59 Intake Total 730 / 730 Balance 730 / 730 Intake: Oral 730 / 730 Other: Meal HS SNACK-SODA [employer] CRACKERS Percent of Meal Consumed 90% Weight 79.379 kg Patient Weight 06/08/17 23:59 Weight 79.379 kg - General Appearance General appearance: Present: well-developed, well-nourished EENT: Present: ATNC Neck: Present: supple Respiratory: Present: clear Cardiology: Present: no edema, regular rate, regular rhythm Integumentary: Present: warm and dry Neurologic: Present: alert and oriented x3 - Lab 06/08/17 05:39 06/08/17 05:39 Most recent lab results ABG pH 7.33 pH Units (7.32-7.45) 06/06/17 07:27 ABG pCO2 53 mmHg (35-45) H 06/06/17 07:27 ABG pO2 61 mmHg (85-104) L 06/06/17 07:27 ABG HCO3 27.9 mEQ/L (21-27) H 06/06/17 07:27 ABG O2 Saturation 89 % (95-98) L 06/06/17 07:27 Calcium 8.2 mg/dL (8.6-10.8) L 06/08/17 05:39 Phosphorus 1.4 mg/dL (2.3-4.7) L 06/07/17 03:49 Magnesium 1.4 mg/dL (1.6-2.6) L 06/07/17 03:49 Consult Discharge Plan - Plan Referrals: Nallely Hanna, REHABILITATION SERVICES COORDINATOR [Primary Care Provider] -
[2017-06-08 10:05] LABS: Thyroid Stimulating Hormone 2.535 mcIU/mL (0.350-4.840)
[2017-06-08] MEDS: Gabapentin 100 MG CAPSULE PO SCH ×3 (10:08→21:26)
[2017-06-08] MEDS: Renal Vitamin 1 MG CAPSULE PO SCH (10:30)
[2017-06-08] MEDS: Folic Acid 1 MG TABLET PO SCH (10:30)
--- NOTE | 2017-06-08 10:33 | Internal Med Progress Note ---
<Lillie Taylor - Last Filed: 06/08/17 10:30> Date of Encounter: 06/08/17 Time of Encounter: 10:31 - 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 plan (1) Anemia Current Visit: No Status: Chronic 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 plan: anemia on chronic disease. drop in Hg 9.8 to 7.7 Plan: will transfuse blood tomorrow during hemodialysis session. vitamin and electrolyte replacement per nephro. Qualifiers: Anemia type: unspecified type Qualified Code(s): D64.9 - Anemia, unspecified (2) Acute systolic CHF (congestive heart failure) Current Visit: No Status: Acute 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 plan: Patient presents via EMS with severe dyspnea in respiratory distress, was found at home hypoxic at 66%. Patient responded to BiPAP therapy, duonebs, lasix, solumedrol, nitro administration. Patient states he has been compliant with medications and HD but has not been compliant with diet. Plan: -Diuresis/HD per nephrology -Continue home meds -1.5L fluid restriction -Daily weights -Strict I/Os (3) Acute on chronic respiratory failure with hypoxia and hypercapnia Current Visit: Yes Status: Acute 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 plan: Patient has COPD, CHF, ESRD on HD. On 4L O2 at home Was SOB with hypoxia at home, responded Plan: -Duonebs Q4h with prn albuterol nebs -Continue home inhaler therapy (4) Pulmonary edema Current Visit: Yes Status: Acute 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 plan: Patient fluid overloaded, dyspnea and hypoxia with diffuse rales on exam Plan: -BiPAP -Diuresis per nephrology Qualifiers: Chronicity: acute Qualified Code(s): J81.0 - Acute pulmonary edema (5) ESRD (end stage renal disease) on dialysis Current Visit: Yes Status: Chronic 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 plan: ESRD on HD MWF, patient of [facility] Patient states he still makes urine States he has not missed HD, is compliant with meds Plan: -Continue home meds -Renal diet with 1.5L fluid restriction -HD with fluid removal per nephro -I/Os, daily weights -Renally dose medications, avoid nephrotoxins when possible (6) Generalized weakness Current Visit: Yes Status: Acute 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 plan: Pt/OT hx of multiple falls PT recommends to return to prior living arrangement. (7) Hypertension Current Visit: No Status: Acute 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 plan: was hypertensive upon admission with BP in 200s got nitro SL and nitro gtt plan: continue home BP meds dialysis per nephrology. Qualifiers: Hypertension type: essential hypertension Qualified Code(s): I10 - Essential (primary) hypertension (8) DEE (obstructive sleep apnea) Current Visit: No Status: Chronic 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 plan: CPAP/BIPAP at night. (9) Hyperlipidemia Current Visit: No Status: Chronic 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 plan: continue statin Qualifiers: Hyperlipidemia type: unspecified Qualified Code(s): E78.5 - Hyperlipidemia , unspecified (10) CAD (coronary artery disease) Current Visit: No Status: Chronic 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 plan: ASA, Statin, BB Qualifiers: Coronary Disease-Associated Artery/Lesion type: [place] artery [place] vs. transplanted heart: [place] heart Associated angina: angina presence unspecified Qualified Code(s): I25.10 - Atherosclerotic heart disease of [place] coronary artery without angina pectoris (11) GERD (gastroesophageal reflux disease) Current Visit: Yes Status: Acute 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 plan: omeprazole Qualifiers: Esophagitis presence: without esophagitis Qualified Code(s): K21.9 - Gastro -esophageal reflux disease without esophagitis (12) History of MRSA infection Current Visit: Yes Status: Acute 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 plan: Patient has a recent history of MRSA bacteremia, was hospitalized at the end of April/beginning of May 2017. Was discharged on IV Vancomycin that is administered with HD sessions until 06/11. Plan: -Will continue vanc with HD, pharmacy to dose -Contact precautions (13) DVT prophylaxis Current Visit: No Status: Acute 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 plan: EPCD - Subjective Interval history: 52 year old male evaluated at bedside. patient denies nausea, vomiting, diarrhea , fever, chills, chest pain, shortness of breath. he is sad because he was looking forward to going home today. he denies any further complaints today. - Constitutional Vitals: Temp Pulse Resp BP Pulse Ox 98.3 F 73 16 176/96 96 06/08/17 07:20 06/08/17 07:20 06/08/17 07:47 06/08/17 07:20 06/08/17 08:24 General appearance: Present: cooperative, disheveled, A&O X 3, pleasant, no acute distress, answers questions appropriately - Head Head exam: Present: atraumatic, normocephalic - Neck Neck exam general surgery: Present: supple, trachea midline - Respiratory Additional comments: significant rales heard diffusely. - Cardiovascular Cardiovascular exam: Present: RRR, +S1, +S2 - GI/Abdominal GI/Abdominal exam: Present: normal bowel sounds, soft. Absent: distended, tenderness - Extremities Exam Extremities exam: Absent: cyanotic, pedal edema - Neurological Exam Neurological exam: Present: alert, oriented X3, no focal deficits - Psychiatric Psychiatric exam: Present: depressed - Skin Skin exam: Present: intact Internal Medicine: Result - Labs CBC & Chem 7: 06/08/17 05:39 06/08/17 05:39 Labs: Short CBC 06/08/17 Range/Units 05:39 WBC 8.3 (4.3-11.1) K/mcL Hgb 7.7 L (12.9-16.9) g/dL Hct 24.2 L (37.5-50.1) % Plt Count 181 (140-400) K/mcL Neutrophils # 5.0 (1.6-8.9) K/mcL BMP 06/08/17 05:39 Sodium 124 L Potassium 4.3 Chloride 91 L Carbon Dioxide 26 BUN 26 D Creatinine 4.86 H D Glucose 88 Calcium 8.2 L - ABG Interpretation ABG results: ABG ABG pH 7.33 pH Units (7.32-7.45) 06/06/17 07:27 ABG pCO2 53 mmHg (35-45) H 06/06/17 07:27 ABG pO2 61 mmHg (85-104) L 06/06/17 07:27 ABG O2 Saturation 89 % (95-98) L 06/06/17 07:27 Consult Discharge Plan - Plan Referrals: Nallely Hanna, APPRENTICE PAINTER NECKTIES [Primary Care Provider] - <German Leung - Last Filed: 06/08/17 17:10> Date of Encounter: 06/08/17 - Constitutional Vitals: Temp Pulse Resp BP Pulse Ox 98.4 F 59 16 131/70 97 06/08/17 12:59 06/08/17 12:59 06/08/17 15:46 06/08/17 12:59 06/08/17 15:46 Internal Medicine: Result - Labs CBC & Chem 7: 06/08/17 05:39 06/08/17 05:39 Labs: Short CBC 06/08/17 Range/Units 05:39 WBC 8.3 (4.3-11.1) K/mcL Hgb 7.7 L (12.9-16.9) g/dL Hct 24.2 L (37.5-50.1) % Plt Count 181 (140-400) K/mcL Neutrophils # 5.0 (1.6-8.9) K/mcL BMP 06/08/17 05:39 Sodium 124 L Potassium 4.3 Chloride 91 L Carbon Dioxide 26 BUN 26 D Creatinine 4.86 H D Glucose 88 Calcium 8.2 L - ABG Interpretation ABG results: ABG ABG pH 7.33 pH Units (7.32-7.45) 06/06/17 07:27 ABG pCO2 53 mmHg (35-45) H 06/06/17 07:27 ABG pO2 61 mmHg (85-104) L 06/06/17 07:27 ABG O2 Saturation 89 % (95-98) L 06/06/17 07:27 - Attending Attestation I examined this patient and my medical decision-making was reviewed with the Resident Physician. I agree with the documented findings, disposition and treatment plan as described except to the extent set forth below.
[2017-06-09] MEDS: Ipratropium/Albuterol Neb 3 ML IH SCH ×3 (03:42→11:16)
[2017-06-09] MEDS: *HR* OxyCODONE/APAP 5/325 TABLET PO PRN (05:12)
[2017-06-09 05:42] LABS: Basophils % 0.2 %; Eosinophils # 0.2 K/mcL (0.0-0.6); Hematocrit 26.1 % (37.5-50.1); Hemoglobin 8.2 g/dL (12.9-16.9); Immature Granulocytes % 0.6 % (0-4); Lymphocytes # 2.3 K/mcL (0.6-4.6); Lymphocytes % 26.8 %; Mean Corpuscular HGB Conc 31.4 g/dL (31.6-35.5); Mean Corpuscular Hemoglobin 28.9 pg (28.0-33.3); Mean Corpuscular Volume 91.9 fL (83.0-100.0); Mean Platelet Volume 9.3 fL (9.4-12.4); Monocytes # 0.8 K/mcL (0.0-1.3); Monocytes % 9.6 %; Neutrophils # 5.3 K/mcL (1.6-8.9); Platelet Count 202 K/mcL (140-400); Red Blood Count 2.84 M/mcL (4.19-5.50); Red Cell Distribution Width 14.6 % (11.5-14.5); Segmented Neutrophils % 60.8 %
[2017-06-09 05:56] LABS: Calcium 8.1 mg/dL (8.6-10.8); Potassium 4.8 mEq/L (3.5-4.5)
[2017-06-09] MEDS: Budesonide/Formoterol 80/4.5 MDI IH SCH (07:23)
[2017-06-09] MEDS: Folic Acid 1 MG TABLET PO SCH (07:52)
[2017-06-09] MEDS: Aspirin 81 MG TAB.CHEW PO SCH (07:52)
[2017-06-09] MEDS: Gabapentin 100 MG CAPSULE PO SCH ×2 (07:52→14:15)
[2017-06-09] MEDS: hydrOXYzine pamoate 25 MG CAPSULE PO SCH ×2 (07:52→14:15)
[2017-06-09] MEDS ORDERED: 0.9 % Sodium Chloride 250 ML IVC PRN (07:53)
[2017-06-09] MEDS: BuPROPion SR (12 HR) 150 MG TABLET PO SCH (07:53)
[2017-06-09] MEDS: Renal Vitamin 1 MG CAPSULE PO SCH (07:53)
[2017-06-09] MEDS: Isosorbide MONOnitrate (24 HR) 30 MG TAB.ER.24H PO SCH (07:55)
[2017-06-09] MEDS ORDERED: 0.9 % Sodium Chloride 1,000 ML PRIME SCH (08:00)
[2017-06-09] MEDS ORDERED: traMADol 50 MG TABLET PO PRN (08:32)
[2017-06-09] MEDS ORDERED: *HR* OxyCODONE/APAP 5/325 TABLET PO PRN (08:32)
[2017-06-09] MEDS ORDERED: 0.9 % Sodium Chloride 2,000 ML ONE (10:38)
--- NOTE | 2017-06-09 11:28 | Discharge Summary ---
<Suyapa Alexisew - Last Filed: 06/09/17 14:31> Date of Encounter: 06/09/17 Time of Encounter: 11:27 - Discharge Diagnosis (1) Acute on chronic respiratory failure with hypoxia and hypercapnia Priority: Primary Status: Resolved (2) Acute systolic CHF (congestive heart failure) Priority: Secondary Status: Acute (3) Symptomatic anemia Priority: Secondary Status: Chronic (4) Generalized weakness Priority: Secondary Status: Acute (5) ESRD (end stage renal disease) Priority: Secondary Status: Chronic (6) HTN (hypertension) Priority: Secondary Status: Chronic Qualifiers: Hypertension type: renovascular hypertension Qualified Code(s): I15.0 - Renovascular hypertension - Discharge Medications Home Medications: Citalopram [CeleXA] 40 mg PO DAILY 10/02/15 [History] Fluticasone/Salmeterol [Advair 250-50 Diskus] 1 puff IH BID 10/02/15 [History] Furosemide [Lasix] 40 mg PO BID 10/02/15 [History] Lidocaine Patch [Lidoderm 5% patch] 1 patch TP DAILY 10/02/15 [History] hydrOXYzine HCl [Hydroxyzine HCl] 25 mg PO TID 10/02/15 [History] Isosorbide MONOnitrate (24 HR) [Imdur] 30 mg PO DAILY #30 tab.er.24h 09/03/16 [ Rx] Ferrous Sulfate [Iron] 325 mg PO DAILY 10/04/16 [History] Carvedilol [Coreg] 6.25 mg PO BID 11/03/16 [History] Ergocalciferol (VITAMIN D2) [Vitamin D2] 50,000 unit PO QWEEK 11/03/16 [History] Lisinopril [Zestril] 10 mg PO DAILY 11/03/16 [History] Simvastatin [Zocor] 40 mg PO HS 11/03/16 [History] Tizanidine HCl [Zanaflex] 4 mg PO TID 11/03/16 [History] Ipratropium/Albuterol Sulfate [Combivent Respimat Inhal [place]] 1 puff IH QID 04/28 [History] Aspirin 81 mg PO DAILY #30 tab.chew 11/24/16 [Rx] Albuterol Sulfate [Proair Hfa] 2 puff IH Q4H PRN 05/08/17 [History] BuPROPion SR (12 HR) [Wellbutrin SR] 150 mg PO BID 05/08/17 [History] Calcium Acetate [Phos-LO] 1,334 mg PO TIDWM 05/08/17 [History] Mupirocin [Bactroban Oint] 1 appl TP BID 05/08/17 [History] Ondansetron HCl [Zofran] 4 mg PO BID 05/08/17 [History] Potassium Chloride [Klor-Con 10] 10 meq PO BID 05/08/17 [History] Sevelamer [Renvela] 2,400 mg PO TIDWM 05/08/17 [History] Tramadol HCl [Ultram] 50 mg PO TID PRN 05/08/17 [History] Gabapentin [Neurontin] 600 mg PO TID #180 cap 05/20/17 [Rx] Allergies/Adverse Reactions: 3 Allergy/AdvReac Type Severity Reaction Status Date / Time bee venom protein (honey bee) AdvReac Swelling Verified 06/06/17 07:57 of Lip/Tongue/Throat potassium AdvReac Vomiting Verified 06/06/17 07:57 prednisone AdvReac Vomiting Verified 06/06/17 07:57 Date of admission: 06/07/17 07:26 Primary care physician: Nallely Hanna CNP Consults: 06/07/17 10:00 Consult to Dialysis [CONS] ONCE 06/08/17 10:00 Consult to Dialysis [CONS] ONCE 06/09/17 08:00 Consult to Dialysis [CONS] ONCE Discharging clinician: Luke Alexis Anticipated date of discharge: 06/09/17 - Patient Status Disposition: Home, Self-Care Condition: Fair Overall status at discharge: patient is progressing back to baseline - Discharge Instructions Instructions: Heart Failure (DC), Anemia (GEN) Follow Up With: Nallely Hanna CNP [Primary Care Provider] - Additional Instructions: Please follow up with her primary care physician after discharge, take all of your prescribed medications, and adhere to a low-salt diet. - Diet and Activity Activity: as per physical therapy, increase activity as tolerated Diet: low salt diet Hospital course: Mr. Castro is a 52 year old male presents emergency department by EMS for shortness of breath. He also was reporting diaphoresis, bilateral lower extremity edema. He is reported to be in severe respiratory distress and review of systems was unable to be obtained at the time of admission. Vital signs were significant for respiratory rate of 30, blood pressure 183/101, action saturation of 98% on BiPAP. Lab results were significant for H&H of 9.8/ 30.6, sodium 123, 89, creatinine of 4.19. Arterial blood gas revealed a pH of 7.33, CO2 of 53, PO2 of 61, bicarbonate of 27.9. BNP was noted to be 3609, negative troponin. Patient was admitted to inpatient medicine service for management of severe respiratory distress secondary to CHF exacerbation. During course of hospital stay, patient's breathing gradually improved and on day of discharge he tolerated 3 L of oxygen via nasal cannula at 90% oxygen saturation, does have a history of COPD. He was also found to be anemic upon presentation, further lab studies revealed iron of 30, ferritin at 1069, folate 15, B12 of 486. He did receive 1 unit of blood during dialysis on day of discharge. Remainder of vital signs were within normal limits. Basic metabolic panel abnormalities appear to be chronic and are related to his end- stage renal disease. His generalized weakness also has resolved at this time. The day of discharge, patient was medically stable for discharge home. He was evaluated by physical therapy and occupational therapy who both recommended returning to prior living situation. He was instructed to follow up with his primary care physician, and to return if his hypoxia should return. - Time Spent with Patient Total time spent providing and/or coordinating discharge services: - Constitutional Vitals: Temp Pulse Resp BP Pulse Ox 99.2 F 70 18 91/58 90 06/09/17 11:07 06/09/17 07:32 06/09/17 07:32 06/09/17 11:07 06/09/17 08:03 General appearance: Present: cooperative, disheveled, A&O X 3, pleasant, no acute distress, answers questions appropriately Exam: Gen.: Vitals noted. No acute distress. AAOx3 HEENT: PERRL/EOMI, oropharynx clear, Normocephalic, atraumatic Neck: Supple. No adenopathy. Cardiac: RRR, no murmur, +S1/S2 Pulmonary: Diffuse rales bilaterally. equal chest expansion Abdomen: soft, nontender, BS noted, no guarding Back: Nontender throughout. MSK: ROM intact, no joint swelling noted Extremities: no BLE edema, nontender calf, no cyanosis or clubbing Neuro: A&Ox3, moves all extremities, no focal deficits Psych: Appropriate mood and behavior - VTE Documentation of Mechanical Device: Intermittent pneumatic compression device <German Leung - Last Filed: 06/09/17 18:34> Date of Encounter: 06/09/17 Date of admission: 06/07/17 07:26 Primary care physician: Nallely Hanna CNP Consults: 06/07/17 10:00 Consult to Dialysis [CONS] ONCE 06/08/17 10:00 Consult to Dialysis [CONS] ONCE 06/09/17 08:00 Consult to Dialysis [CONS] ONCE Hospital course: Mr. Castro is a 52 year old male - Time Spent with Patient Total time spent providing and/or coordinating discharge services: - Constitutional Vitals: Temp Pulse Resp BP Pulse Ox 99.8 F H 76 18 100/56 96 06/09/17 14:10 06/09/17 14:05 06/09/17 14:10 06/09/17 14:10 06/09/17 14:05 - Attending Attestation I examined this patient and my medical decision-making was reviewed with the Resident Physician. I agree with the documented findings, disposition and treatment plan as described except to the extent set forth below.
--- NOTE | 2017-06-09 11:45 | Electrocardiograph Report ---
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
--- NOTE | 2017-06-09 12:12 | Nephrology Progress Note ---
Date of Encounter: 06/09/17 Time of Encounter: 12:09 - 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 Plan (1) Acute exacerbation of CHF (congestive heart failure) Current Visit: Yes Status: Acute Improved with UF. Breathing close to baseline. Per primary team. Qualifiers: Congestive heart failure type: systolic Qualified Code(s): I50.23 - Acute on chronic systolic (congestive) heart failure (2) History of MRSA infection Current Visit: Yes Status: Acute Patient on isolation. Continue vancomycin. (3) ESRD (end stage renal disease) on dialysis Current Visit: Yes Status: Chronic HD MWF. Patient seems to be close to euvolemia. Renal dose medications. Renal diet. (4) HTN (hypertension) Current Visit: Yes Status: Chronic Blood pressure better. Qualifiers: Hypertension type: renovascular hypertension Qualified Code(s): I15.0 - Renovascular hypertension (5) Anemia Current Visit: Yes Status: Acute Will transfuse on dialysis. Spoke with the team. Folate low - replacement ordered. Patient on oral iron. Qualifiers: Qualified Code(s): D64.9 - Anemia, unspecified (6) Hypophosphatemia Current Visit: Yes Status: Acute Binders discontinued. Replacement ordered. Monitor closely. vitamin d and pth ordered. (7) Hypomagnesemia Current Visit: Yes Status: Acute Replacement ordered. Subjective Principal diagnosis: ESRD Interval history: Patient seen on dialysis. He states he feels better and that his breathing is baseline. He denies chest pain. His review of systems overall is stable. He wants to go home. Objective - Vital Signs Vital signs: Vital Signs Temp Pulse Resp BP Pulse Ox 06/09/17 12:01 98.9 F 67 20 100/58 06/09/17 11:22 99.2 F 67 20 92/54 06/09/17 11:07 99.2 F 91/58 06/09/17 09:50 99.5 F 20 171/78 06/09/17 08:03 90 06/09/17 07:32 98.2 F 70 18 120/69 90 06/09/17 07:23 16 91 06/09/17 05:09 98.3 F 69 18 149/79 94 06/08/17 23:34 14 93 06/08/17 23:08 98.4 F 67 16 139/74 94 06/08/17 19:42 14 98 06/08/17 18:31 98.3 F 59 16 111/54 97 06/08/17 17:34 98.0 F 61 16 132/70 94 06/08/17 15:46 16 97 06/08/17 12:59 98.4 F 59 14 131/70 98 Intake and Output 06/08/17 06/09/17 06/09/17 23:59 07:59 15:59 Intake Total 350 / 350 1660 / 1660 Output Total 0 / 0 0 / 0 Balance 350 / 350 1660 / 1660 Intake: IV Fluids 110 / 110 Sodium Phosphate 30 MMOL 110 / 110 In Dextrose 5% 100 ML @ 16 mls/hr IVPB ONCE ONE Rx#:[id number] Oral 240 / 240 360 / 360 Blood Product 700 / 700 Rbcs Leuko Poor As-1 700 / 700 Unit [id number] Intake, Rinseback and 600 / 600 Flushes Output: Urine 0 / 0 0 / 0 Other: Meal HS [employer] Breakfast Percent of Meal Consumed 100% Weight 80.921 kg Hemodialysis Net Fluid 0 Removed (mL) - General Appearance General appearance: Present: well-developed, well-nourished EENT: Present: ATNC Neck: Present: supple Respiratory: Present: course breath sounds Cardiology: Present: no edema, regular rate Integumentary: Present: warm and dry Neurologic: Present: alert and oriented x3 Psychiatric: Present: mood/affect appropriate - Lab 06/09/17 05:27 06/09/17 05:27 Most recent lab results ABG pH 7.33 pH Units (7.32-7.45) 06/06/17 07:27 ABG pCO2 53 mmHg (35-45) H 06/06/17 07:27 ABG pO2 61 mmHg (85-104) L 06/06/17 07:27 ABG HCO3 27.9 mEQ/L (21-27) H 06/06/17 07:27 ABG O2 Saturation 89 % (95-98) L 06/06/17 07:27 Calcium 8.1 mg/dL (8.6-10.8) L 06/09/17 05:27 Phosphorus 1.4 mg/dL (2.3-4.7) L 06/07/17 03:49 Magnesium 1.4 mg/dL (1.6-2.6) L 06/07/17 03:49 - VTE Documentation of Mechanical Device: Intermittent pneumatic compression device Consult Discharge Plan - Plan Referrals: Nallely Hanna, [employer] [Primary Care Provider] -
[2017-06-09] MEDS ORDERED: Aminoglycoside Consult 1 EACH MC ONE (14:59)
[2017-06-09 16:50] VITALS: BP 100/56
== END 2017-06-09 15:00 | disposition home or self-care (01) | DRG 194 ==
LOC: 2ANU 07:14 → EMEROO 07:14 → 2ANU 09:00
PROVIDERS: ADMIT Internal Medicine; ATTEND Internal Medicine

== ENCOUNTER 2017-06-13 07:19 | Inpatient (IN) ==
[2017-06-13] MEDS ORDERED: Ipratropium/Albuterol Neb 3 ML ONE (07:25)
--- NOTE | 2017-06-13 07:29 | Emergency Department Note ---
Disposition Clinical Impression: Hyponatremia Hypervolemia Qualifiers: Hypervolemia type: unspecified Qualified Code(s): E87.70 - Fluid overload, unspecified Acute and chronic respiratory failure ([id number]) Qualifiers: Respiratory failure complication: hypoxia and hypercapnia Qualified Code(s): J96.21 - Acute and chronic respiratory failure with hypoxia Disposition: Admitted As Inpatient Condition: Fair SOB HPI - General Chief Complaint: ED Shortness of Breath/Dyspnea Stated Complaint: ANNETTA Time Seen by Provider: 06/13/17 07:22 Nursing Notes Reviewed: Yes Vital Signs Reviewed: Yes - History of Present Illness Mr. Castro, a 52-year-old male, with past medical history of COPD, CHF, CAD, previous IA, renal failure with dialysis Friday, Friday, Friday. He presents from home via EMS in acute respiratory distress. Onset approximately one hour prior to arrival. EMS found him in his home drooling, tripoding, tachypneic, only able to answer yes/no; one word conversational dyspnea. EMS placed him on CPAP. Review of systems limited due to patient acuity and extreme conversational dyspnea. - Related Data Home Medications Medication Instructions Recorded Confirmed Citalopram [CeleXA] 40 mg PO DAILY 10/02/15 06/13/17 Fluticasone/Salmeterol [Advair 1 puff IH BID 10/02/15 06/13/17 250-50 Diskus] Furosemide [Lasix] 40 mg PO BID 10/02/15 06/13/17 Lidocaine Patch [Lidoderm 5% patch] 1 patch TP DAILY 10/02/15 06/13/17 hydrOXYzine HCl [Hydroxyzine HCl] 25 mg PO TID 10/02/15 06/13/17 Ferrous Sulfate [Iron] 325 mg PO DAILY 10/04/16 06/13/17 Carvedilol [Coreg] 6.25 mg PO BID 11/03/16 06/13/17 Ergocalciferol (VITAMIN D2) 50,000 unit PO QWEEK 11/03/16 06/13/17 [Vitamin D2] Lisinopril [Zestril] 10 mg PO DAILY 11/03/16 06/13/17 Simvastatin [Zocor] 40 mg PO HS 11/03/16 06/13/17 Tizanidine HCl [Zanaflex] 4 mg PO TID 11/03/16 06/13/17 Ipratropium/Albuterol Sulfate 1 puff IH QID 11/19/16 06/13/17 [Combivent Respimat Inhal [place]] Albuterol Sulfate [Proair Hfa] 2 puff IH Q4H PRN 05/08/17 06/13/17 BuPROPion SR (12 HR) [Wellbutrin 150 mg PO BID 05/08/17 06/13/17 SR] Calcium Acetate [Phos-LO] 1,334 mg PO TIDWM 05/08/17 06/13/17 Mupirocin [Bactroban Oint] 1 appl TP BID 05/08/17 06/13/17 Ondansetron HCl [Zofran] 4 mg PO BID 05/08/17 06/13/17 Potassium Chloride [Klor-Con 10] 10 meq PO BID 05/08/17 06/13/17 Sevelamer [Renvela] 2,400 mg PO TIDWM 05/08/17 06/13/17 Tramadol HCl [Ultram] 50 mg PO TID PRN 05/08/17 06/13/17 Previous Rx's Medication Instructions Recorded Isosorbide MONOnitrate (24 HR) 30 mg PO DAILY #30 tab.er.24h 09/03/16 [Imdur] Aspirin 81 mg PO DAILY #30 tab.chew 11/24/16 Gabapentin [Neurontin] 600 mg PO TID #180 cap 05/20/17 Allergies Allergy/AdvReac Type Severity Reaction Status Date / Time bee venom protein (honey bee) AdvReac Swelling Verified 06/13/17 07:21 of Lip/Tongue/Throat potassium AdvReac Vomiting Verified 06/13/17 07:21 prednisone AdvReac Vomiting Verified 06/13/17 07:21 Limitations: ROS unobtainable due to patients medical condition Past Medical History - Past Medical History Medical history: Reports: arthritis, CHF, COPD, coronary artery disease, dialysis, GERD, hyperlipidemia, hypertension, myocardial infarction, osteoporosis, peripheral artery disease, renal disease, other Surgical history: Reports: non-contributory, vascular surgery, other Psychiatric history: Reports: anxiety, bipolar, depression, other - Social History Smoking Status: Current every day smoker Smokeless Tobacco Status: Yes Alcohol use: Reports: none Drug use: Reports: marijuana Physical Exam Vital Signs Reviewed General: Patient is alert, oriented, and in acute respiratory distress. HEENT: No facial asymmetry. Head is normocephalic and atraumatic. PERRLA, EOMI. Oropharynx not examined secondary to BiPAP mask. Cardiovascular: Heart tachycardic rate and regular rhythm without clicks, rubs, gallops, or murmurs. No JVD. PMI nondisplaced. 1+ bilateral pitting edema. Skin cool and diaphoretic. Respiratory: Symmetric chest rise with poor respiratory effort. Bilateral breath sounds have diffuse wheezing and crackles with poor air entry. Abdomen: Bowel sounds present normoactive. Abdomen is soft, nondistended, and nontender. No organomegaly noted. Neuro: GCS 15. Psych: Patient's affect is appropriate for situation. Course Course Narrative: Patient immediately placed on BiPAP. Within 10-15 minutes, his work of breathing was essentially improved, his O2 saturation was 100%, his restaurant rate lowered, his heart rate was noted to. He appears much more comfortable. Patient's sodium is critically low at 120. Suspect hypervolemic hyponatremia. 08:14 Spoke with [facility], Dr. Burrows, who is familiar with the patient. Patient will be scheduled for emergent dialysis this morning. Vital Signs Temperature 97.4 F L 06/13/17 07:21 Pulse Rate 88 06/13/17 07:21 Respiratory Rate 25 06/13/17 07:21 Blood Pressure 177/94 06/13/17 07:21 O2 Sat by Pulse Oximetry 100 06/13/17 07:21 Temperature 97.9 F 06/13/17 19:25 Pulse Rate 78 06/13/17 19:25 Respiratory Rate 17 06/13/17 19:25 Blood Pressure 169/81 06/13/17 19:25 O2 Sat by Pulse Oximetry 96 06/13/17 19:25 Oxygen Delivery Oxygen Delivery Bipap Shortness of Breath/Dyspnea - Medical Records Medical records reviewed: Yes I reviewed the patient's medical records. - Lab Data Lab results reviewed: Yes I reviewed the patient's lab results. Result diagrams: 06/13/17 07:30 06/13/17 07:30 Lab Results 06/13/17 06/13/17 06/13/17 Range/Units 07:30 07:30 07:30 WBC 8.9 (4.3-11.1) K/mcL RBC 3.65 L (4.19-5.50) M/mcL Hgb 10.5 L D (12.9-16.9) g/dL Hct 31.7 L (37.5-50.1) % MCV 86.8 (83.0-100.0) fL MCH 28.8 (28.0-33.3) pg MCHC 33.1 (31.6-35.5) g/dL RDW 13.9 (11.5-14.5) % Plt Count 274 (140-400) K/mcL MPV 9.2 L (9.4-12.4) fL Immature Gran % 0.8 (0-4) % Seg Neutrophils % 58.0 % Lymphocytes % 26.9 % Monocytes % 8.1 % Eosinophils % 5.5 % Basophils % 0.7 % Neutrophils # 5.2 (1.6-8.9) K/mcL Lymphocytes # 2.4 (0.6-4.6) K/mcL Monocytes # 0.7 (0.0-1.3) K/mcL Eosinophils # 0.5 (0.0-0.6) K/mcL Basophils # 0.1 (0.0-0.2) K/mcL ABG pH (7.32-7.45) pH Units ABG pCO2 (35-45) mmHg ABG pO2 (85-104) mmHg ABG HCO3 (21-27) mEq/L ABG Total CO2 (20-26) mEq/L ABG O2 Saturation (95-98) % ABG Base Excess (-2.0 to 3.0) mEq/L Blood Gas Modality Inspired O2 % Sodium 120 L* (136-145) mEq/L Potassium 3.4 L (3.5-4.5) mEq/L Chloride 86 L (98-109) mEq/L Carbon Dioxide 26 (19-29) mEq/L BUN 15 (8-26) mg/dL Creatinine 3.59 H (0.72-1.25) mg/dL Est GFR ( Amer) 22 L (> 60) Est GFR (Non-Af Amer) 18 L (> 60) BUN/Creatinine Ratio 4 L (6-26) Glucose 93 (70-99) mg/dL POC Glucose (58-89) Calculated Osmolality 251 L (280-300) Lactic Acid 1.3 (0.5-2.2) mmol/L Calcium 8.5 L (8.6-10.8) mg/dL Total Bilirubin 0.8 (0.2-1.2) mg/dL Direct Bilirubin 0.4 (0.0-0.5) mg/dL Indirect Bilirubin 0.4 (0.0-1.2) mg/dL AST 32 (5-34) Units/L ALT 7 (0-55) Units/L Alkaline Phosphatase 145 H (38-126) Units/L Troponin I (0-0.03) ng/mL B-Natriuretic Peptide (0-100) pg/mL Serum Total Protein 7.2 (6.0-8.3) g/dL Albumin 2.8 L (3.5-5.0) g/dL Globulin 4.4 H (2.4-3.5) g/dL Albumin/Globulin Ratio 0.6 L (1.1-2.2) 06/13/17 06/13/17 06/13/17 Range/Units 07:30 07:30 07:30 WBC (4.3-11.1) K/mcL RBC (4.19-5.50) M/mcL Hgb (12.9-16.9) g/dL Hct (37.5-50.1) % MCV (83.0-100.0) fL MCH (28.0-33.3) pg MCHC (31.6-35.5) g/dL RDW (11.5-14.5) % Plt Count (140-400) K/mcL MPV (9.4-12.4) fL Immature Gran % (0-4) % Seg Neutrophils % % Lymphocytes % % Monocytes % % Eosinophils % % Basophils % % Neutrophils # (1.6-8.9) K/mcL Lymphocytes # (0.6-4.6) K/mcL Monocytes # (0.0-1.3) K/mcL Eosinophils # (0.0-0.6) K/mcL Basophils # (0.0-0.2) K/mcL ABG pH 7.34 (7.32-7.45) pH Units ABG pCO2 50 H (35-45) mmHg ABG pO2 102 (85-104) mmHg ABG HCO3 27 (21-27) mEq/L ABG Total CO2 28.5 H (20-26) mEq/L ABG O2 Saturation 98 (95-98) % ABG Base Excess 0.8 (-2.0 to 3.0) mEq/L Blood Gas Modality BIPAP Inspired O2 100 % Sodium (136-145) mEq/L Potassium (3.5-4.5) mEq/L Chloride (98-109) mEq/L Carbon Dioxide (19-29) mEq/L BUN (8-26) mg/dL Creatinine (0.72-1.25) mg/dL Est GFR ( Amer) (> 60) Est GFR (Non-Af Amer) (> 60) BUN/Creatinine Ratio (6-26) Glucose (70-99) mg/dL POC Glucose (58-89) Calculated Osmolality (280-300) Lactic Acid (0.5-2.2) mmol/L Calcium (8.6-10.8) mg/dL Total Bilirubin (0.2-1.2) mg/dL Direct Bilirubin (0.0-0.5) mg/dL Indirect Bilirubin (0.0-1.2) mg/dL AST (5-34) Units/L ALT (0-55) Units/L Alkaline Phosphatase (38-126) Units/L Troponin I 0.03 (0-0.03) ng/mL B-Natriuretic Peptide 3831 H (0-100) pg/mL Serum Total Protein (6.0-8.3) g/dL Albumin (3.5-5.0) g/dL Globulin (2.4-3.5) g/dL Albumin/Globulin Ratio (1.1-2.2) 06/13/17 Range/Units 11:59 WBC (4.3-11.1) K/mcL RBC (4.19-5.50) M/mcL Hgb (12.9-16.9) g/dL Hct (37.5-50.1) % MCV (83.0-100.0) fL MCH (28.0-33.3) pg MCHC (31.6-35.5) g/dL RDW (11.5-14.5) % Plt Count (140-400) K/mcL MPV (9.4-12.4) fL Immature Gran % (0-4) % Seg Neutrophils % % Lymphocytes % % Monocytes % % Eosinophils % % Basophils % % Neutrophils # (1.6-8.9) K/mcL Lymphocytes # (0.6-4.6) K/mcL Monocytes # (0.0-1.3) K/mcL Eosinophils # (0.0-0.6) K/mcL Basophils # (0.0-0.2) K/mcL ABG pH (7.32-7.45) pH Units ABG pCO2 (35-45) mmHg ABG pO2 (85-104) mmHg ABG HCO3 (21-27) mEq/L ABG Total CO2 (20-26) mEq/L ABG O2 Saturation (95-98) % ABG Base Excess (-2.0 to 3.0) mEq/L Blood Gas Modality Inspired O2 % Sodium (136-145) mEq/L Potassium (3.5-4.5) mEq/L Chloride (98-109) mEq/L Carbon Dioxide (19-29) mEq/L BUN (8-26) mg/dL Creatinine (0.72-1.25) mg/dL Est GFR ( Amer) (> 60) Est GFR (Non-Af Amer) (> 60) BUN/Creatinine Ratio (6-26) Glucose (70-99) mg/dL POC Glucose 81 (58-89) Calculated Osmolality (280-300) Lactic Acid (0.5-2.2) mmol/L Calcium (8.6-10.8) mg/dL Total Bilirubin (0.2-1.2) mg/dL Direct Bilirubin (0.0-0.5) mg/dL Indirect Bilirubin (0.0-1.2) mg/dL AST (5-34) Units/L ALT (0-55) Units/L Alkaline Phosphatase (38-126) Units/L Troponin I (0-0.03) ng/mL B-Natriuretic Peptide (0-100) pg/mL Serum Total Protein (6.0-8.3) g/dL Albumin (3.5-5.0) g/dL Globulin (2.4-3.5) g/dL Albumin/Globulin Ratio (1.1-2.2) - EKG Data EKG attestation: Yes I reviewed and interpreted this EKG. EKG results narrative: EKG dated on June 2017 at 07:22 interpreted as sinus rhythm with rate of 95. Normal intervals. Normal axis. Nonspecific ST T changes. Compared to previous EKG dated show no acute ischemic changes.
[2017-06-13] MEDS: Ipratropium/Albuterol Neb 3 ML ONE (07:39)
[2017-06-13 07:43] LABS: ABG Base Excess 0.8 mEq/L (-2.0 to 3.0); ABG HCO3 27 mEq/L (21-27); ABG Oxygen Saturation 98 % (95-98); ABG PCO2 50 mmHg (35-45); ABG PH 7.34 pH Units (7.32-7.45); ABG PO2 102 mmHg (85-104); ABG TCO2 28.5 mEq/L (20-26)
[2017-06-13 07:45] LABS: Blood Gas FiO2 100 %
[2017-06-13 08:04] LABS: Basophils # 0.1 K/mcL (0.0-0.2); Basophils % 0.7 %; Eosinophils # 0.5 K/mcL (0.0-0.6); Eosinophils % 5.5 %; Hematocrit 31.7 % (37.5-50.1); Hemoglobin 10.5 g/dL (12.9-16.9); Immature Granulocytes % 0.8 % (0-4); Lymphocytes # 2.4 K/mcL (0.6-4.6); Lymphocytes % 26.9 %; Mean Corpuscular HGB Conc 33.1 g/dL (31.6-35.5); Mean Corpuscular Hemoglobin 28.8 pg (28.0-33.3); Mean Corpuscular Volume 86.8 fL (83.0-100.0); Mean Platelet Volume 9.2 fL (9.4-12.4); Monocytes # 0.7 K/mcL (0.0-1.3); Monocytes % 8.1 %; Neutrophils # 5.2 K/mcL (1.6-8.9); Platelet Count 274 K/mcL (140-400); Red Blood Count 3.65 M/mcL (4.19-5.50); Red Cell Distribution Width 13.9 % (11.5-14.5)
[2017-06-13 08:05] LABS: Albumin 2.8 g/dL (3.5-5.0); Albumin/Globulin Ratio 0.6 (1.1-2.2); Bilirubin,Direct 0.4 mg/dL (0.0-0.5); Bilirubin,Indirect 0.4 mg/dL (0.0-1.2); Bilirubin,Total 0.8 mg/dL (0.2-1.2); Calcium 8.5 mg/dL (8.6-10.8); Globulin 4.4 g/dL (2.4-3.5); Potassium 3.4 mEq/L (3.5-4.5); Total Protein 7.2 g/dL (6.0-8.3)
[2017-06-13] MEDS ORDERED: 0.9 % Sodium Chloride 250 ML IVC PRN (08:19)
--- NOTE | 2017-06-13 10:07 | Emergency Department Note ---
START Narrative - START START: I examined this patient and my medical decision-making was reviewed with the Resident Physician. I agree with the documented findings, disposition and treatment plan as described except to the extent set forth below. Patient seen with the emergency medicine resident Dr. Willis Hampton, Please see a copy of his nose for details of the H&P, ED evaluation, management and disposition. I have independently evaluated the patient and confirmed appropriate portions of the history and physical exam. Briefly: 52 year old male via EMS for shortness of breath. Patient has end- stage renal disease, dialysis dependent 3 times a week. Last session was Friday. Presents with tachycardia tachypnea hypertension and hypoxia. EMS said that he was cyanotic leaning forward and drooling. Patient was placed on BiPAP emergently and clinically improved within 15-20 minutes where his blood pressure heart rate and sats normalized. ED workup was completed showing acute CHF and pulmonary edema. Nephrology was contacted and emergent dialysis was arranged with admission through the hospitalist. We have provided 45 minutes of critical care services for this patient. Admission pending
[2017-06-13] MEDS ORDERED: Naloxone 0.4 MG/ML INJ IVP PRN (14:45)
[2017-06-13] MEDS ORDERED: MOM Conc 10 ML UD.LIQ PO PRN (14:45)
[2017-06-13] MEDS ORDERED: Acetaminophen 325 MG TABLET PO PRN (14:45)
[2017-06-13] MEDS ORDERED: D5% in Water 1,000 ML IVC PRN ×2 (14:55→14:56)
[2017-06-13] MEDS ORDERED: *HR* Dextrose 50 % in Water (Syg) 50 ML SYRINGE IVP PRN ×2 (14:55→14:56)
[2017-06-13] MEDS ORDERED: Dextrose Gel 15 GM PO PRN ×4 (14:55→14:56)
[2017-06-13] MEDS ORDERED: traMADol 50 MG TABLET PO PRN (14:58)
[2017-06-13] MEDS ORDERED: Albuterol 2.5 MG/3 ML NEBULIZER IH PRN (15:02)
--- NOTE | 2017-06-13 15:06 | Internal Med History&Physical ---
Date of Encounter: 06/13/17 Time of Encounter: 15:04 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 Plan (1) Acute respiratory failure Current visit: Yes Status: Acute Due to fluid overload and COPD exacerbation. As we are managing the underlying conditions respiratory failure and sensorium both will improve. Qualifiers: Respiratory failure complication: unspecified whether with hypoxia or hypercapnia Qualified Code(s): J96.00 - Acute respiratory failure, unspecified whether with hypoxia or hypercapnia (2) Acute exacerbation of CHF (congestive heart failure) Current visit: Yes Status: Acute atient will get emergency dialysis Qualifiers: Congestive heart failure type: unspecified congestive heart failure type Qualified Code(s): I50.9 - Heart failure, unspecified (3) ESRD (end stage renal disease) on dialysis Current visit: Yes Status: Acute Due to respiratory failure and need emergency dialysis nephrology consulted by ER. (4) COPD (chronic obstructive pulmonary disease) Current visit: No Status: Chronic patient started on DuoNeb's Qualifiers: COPD type: unspecified COPD Qualified Code(s): J44.9 - Chronic obstructive pulmonary disease, unspecified (5) Altered mental status Current visit: Yes Status: Resolved Secondary to respiratory failure Qualifiers: Altered mental status type: unspecified Qualified Code(s): R41.82 - Altered mental status, unspecified Internal Medicine - H&P: HPI Chief complaint: Shortness of breath Admitted From: Home Plans for Post Hospital Care: Home History of present illness: Mr. Castro is a 52 year old male via EMS for shortness of breath. Patient has end-stage renal disease, dialysis dependent 3 times a week. He is known to be noncompliant. Last session was Friday. Presents with tachycardia tachypnea hypertension and hypoxia. EMS said that he was cyanotic leaning forward and drooling. Patient was placed on BiPAP emergently and clinically improved within 15-20 minutes where his blood pressure heart rate and sats normalized. ED workup was completed showing acute CHF and pulmonary edema. Nephrology was contacted and emergent dialysis was arranged . No further information could be obtained as patient is quite somnolent.. Past Med Surg Social Fam HX - Past Medical History Medical history: arthritis, CHF, COPD, coronary artery disease, dialysis, GERD, hyperlipidemia, hypertension, myocardial infarction, osteoporosis, peripheral artery disease, renal disease, other Psychiatric history: anxiety, bipolar, depression, other - Past Surgical History Surgical History: non-contributory, vascular surgery, other - Social History Smoking Status: Current every day smoker Smokeless Tobacco Status: Yes Alcohol use: none Drug use: marijuana - Family History Mother Living Status: Hx Family Cardiac Disorders: Yes Father Living Status: Hx Family Cardiac Disorders: Yes Hx Family Cancer: Yes Internal Medicine - H&P: Meds Citalopram [CeleXA] 40 mg PO DAILY 10/02/15 [History] Fluticasone/Salmeterol [Advair 250-50 Diskus] 1 puff IH BID 10/02/15 [History] Furosemide [Lasix] 40 mg PO BID 10/02/15 [History] Lidocaine Patch [Lidoderm 5% patch] 1 patch TP DAILY 10/02/15 [History] hydrOXYzine HCl [Hydroxyzine HCl] 25 mg PO TID 10/02/15 [History] Isosorbide MONOnitrate (24 HR) [Imdur] 30 mg PO DAILY #30 tab.er.24h 09/03/16 [ Rx] Ferrous Sulfate [Iron] 325 mg PO DAILY 10/04/16 [History] Carvedilol [Coreg] 6.25 mg PO BID 11/03/16 [History] Ergocalciferol (VITAMIN D2) [Vitamin D2] 50,000 unit PO QWEEK 11/03/16 [History] Lisinopril [Zestril] 10 mg PO DAILY 11/03/16 [History] Simvastatin [Zocor] 40 mg PO HS 11/03/16 [History] Tizanidine HCl [Zanaflex] 4 mg PO TID 11/03/16 [History] Ipratropium/Albuterol Sulfate [Combivent Respimat Inhal [place]] 1 puff IH QID 04/28 [History] Aspirin 81 mg PO DAILY #30 tab.chew 11/24/16 [Rx] Albuterol Sulfate [Proair Hfa] 2 puff IH Q4H PRN 05/08/17 [History] BuPROPion SR (12 HR) [Wellbutrin SR] 150 mg PO BID 05/08/17 [History] Calcium Acetate [Phos-LO] 1,334 mg PO TIDWM 05/08/17 [History] Mupirocin [Bactroban Oint] 1 appl TP BID 05/08/17 [History] Ondansetron HCl [Zofran] 4 mg PO BID 05/08/17 [History] Potassium Chloride [Klor-Con 10] 10 meq PO BID 05/08/17 [History] Sevelamer [Renvela] 2,400 mg PO TIDWM 05/08/17 [History] Tramadol HCl [Ultram] 50 mg PO TID PRN 05/08/17 [History] Gabapentin [Neurontin] 600 mg PO TID #180 cap 05/20/17 [Rx] 3 Allergy/AdvReac Type Severity Reaction Status Date / Time bee venom protein (honey bee) AdvReac Swelling Verified 06/13/17 07:21 of Lip/Tongue/Throat potassium AdvReac Vomiting Verified 06/13/17 07:21 prednisone AdvReac Vomiting Verified 06/13/17 07:21 All Systems PM: A 10-system review of systems was performed and is negative for pertinent findings except as documented above in the HPI. Review of systems: Could not be done as patient condition is quite critical due to respiratory failure - Constitutional Vitals: Temp Pulse Resp BP Pulse Ox 97.4 F L 63 19 180/94 100 06/13/17 07:21 06/13/17 10:00 06/13/17 10:04 06/13/17 10:04 06/13/17 10:00 General appearance: Present: A&O X 1, mild distress Exam: Patient on BiPAP seems somnolent able to say a few words but overall could not answer my questions well he is going for emergency dialysis - Head Head exam: Present: atraumatic, normocephalic - Eye Eye exam: Present: PERRL, conjuntiva pink, sclera anicteric Pupils: Present: PERRL - Neck Neck exam general surgery: Present: supple, trachea midline. Absent: lymphadenopathy - Respiratory Respiratory exam: Present: decreased breath sounds. Absent: accessory muscle use, rales, rhonchi, wheezes - Cardiovascular Cardiovascular exam: Present: RRR, +S1, +S2. Absent: diastolic murmur, gallop, rubs, systolic murmur - GI/Abdominal GI/Abdominal exam: Present: normal bowel sounds, soft, no peritoneal signs. Absent: distended, tenderness - Extremities Exam Extremities exam: Present: warm, radial pulses palpable and symmetrical. Absent : calf tenderness, cyanotic, pedal edema - Neurological Exam Neurological exam: Absent: pronater drift, facial droop, speech deficit Additional comments: As noted above patient is quite somnolent he is not cooperating he is on BiPAP and he was planning to get emergency dialysis - Skin Skin exam: Present: dry, intact Internal Med - H&P Results - Labs CBC & Chem 7: 06/13/17 07:30 06/13/17 07:30
[2017-06-13] MEDS: Calcium Acetate 667 MG CAPSULE PO SCH (16:05)
[2017-06-13] MEDS: Gabapentin 300 MG CAPSULE PO SCH ×2 (16:05→21:22)
[2017-06-13] MEDS: hydrOXYzine pamoate 25 MG CAPSULE PO SCH ×2 (16:05→21:22)
[2017-06-13] MEDS: Furosemide 40 MG TABLET PO SCH (16:05)
[2017-06-13] MEDS: Ipratropium/Albuterol Neb 3 ML IH SCH ×2 (16:12→23:02)
[2017-06-13] MEDS: Insulin LISPRO 300 UNITS/3 ML VIAL SQ SCH (17:48)
--- NOTE | 2017-06-13 17:52 | Nephrology Consult Note ---
Date of Encounter: 06/13/17 Time of Encounter: 17:51 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 Plan (1) ESRD (end stage renal disease) on dialysis Status: Chronic HD today for UF and clearance. Will assess tomorrow for further HD, if needed. (2) Acute exacerbation of CHF (congestive heart failure) Status: Acute As per primary Qualifiers: Congestive heart failure type: unspecified congestive heart failure type Qualified Code(s): I50.9 - Heart failure, unspecified (3) Hypervolemia Status: Acute Will need UF today for fluid removal Qualifiers: Hypervolemia type: unspecified Qualified Code(s): E87.70 - Fluid overload, unspecified (4) Shortness of breath Status: Acute D/t Fluid overload (5) Acidosis, metabolic Status: Acute D/t ESRD (6) Fluid overload Status: Acute See above. Needs treatment today Qualifiers: Hypervolemia type: unspecified Qualified Code(s): E87.70 - Fluid overload, unspecified (7) H/O noncompliance with medical treatment, presenting hazards to health Status: Acute I spent >50% of my time about 30 min counseling him about the importance of adherring to a low sodium diet, wt loss, fluid restriction and completing HD as routinely scheduled. (8) Hyponatremia Status: Acute History of Present Illness - Reason for Consult Consult date: 06/13/17 end stage renal disease, hyponatremia Requesting physician: Marlena Hansen - Chief Complaint ERSD - History of Present Illness 52 y/o WM with a pmh of ESRD on HD M/W/F, frequent swellings and edema, and et al who presented with edema and swelling. He said he has not missed HD; his primary media services coordinator is Dr. Acevedo; and [facility] [place], [place]. He did not affirm CP, F/C/N/V, dysuria. Past Med Surg Social Fam HX - Past Medical History Medical history: arthritis, CHF, COPD, coronary artery disease, dialysis, GERD, hyperlipidemia, hypertension, myocardial infarction, osteoporosis, peripheral artery disease, renal disease, other Psychiatric history: anxiety, bipolar, depression, other - Past Surgical History Surgical History: non-contributory, vascular surgery, other - Social History Smoking Status: Current every day smoker Smokeless Tobacco Status: Yes Alcohol use: none Drug use: marijuana - Family History Mother Living Status: Hx Family Cardiac Disorders: Yes Father Living Status: Hx Family Cardiac Disorders: Yes Hx Family Cancer: Yes Medications and Allergies Citalopram [CeleXA] 40 mg PO DAILY 10/02/15 [History] Fluticasone/Salmeterol [Advair 250-50 Diskus] 1 puff IH BID 10/02/15 [History] Furosemide [Lasix] 40 mg PO BID 10/02/15 [History] Lidocaine Patch [Lidoderm 5% patch] 1 patch TP DAILY 10/02/15 [History] hydrOXYzine HCl [Hydroxyzine HCl] 25 mg PO TID 10/02/15 [History] Isosorbide MONOnitrate (24 HR) [Imdur] 30 mg PO DAILY #30 tab.er.24h 09/03/16 [ Rx] Ferrous Sulfate [Iron] 325 mg PO DAILY 10/04/16 [History] Carvedilol [Coreg] 6.25 mg PO BID 11/03/16 [History] Ergocalciferol (VITAMIN D2) [Vitamin D2] 50,000 unit PO QWEEK 11/03/16 [History] Lisinopril [Zestril] 10 mg PO DAILY 11/03/16 [History] Simvastatin [Zocor] 40 mg PO HS 11/03/16 [History] Tizanidine HCl [Zanaflex] 4 mg PO TID 11/03/16 [History] Ipratropium/Albuterol Sulfate [Combivent Respimat Inhal [place]] 1 puff IH QID 04/28 [History] Aspirin 81 mg PO DAILY #30 tab.chew 11/24/16 [Rx] Albuterol Sulfate [Proair Hfa] 2 puff IH Q4H PRN 05/08/17 [History] BuPROPion SR (12 HR) [Wellbutrin SR] 150 mg PO BID 05/08/17 [History] Calcium Acetate [Phos-LO] 1,334 mg PO TIDWM 05/08/17 [History] Mupirocin [Bactroban Oint] 1 appl TP BID 05/08/17 [History] Ondansetron HCl [Zofran] 4 mg PO BID 05/08/17 [History] Potassium Chloride [Klor-Con 10] 10 meq PO BID 05/08/17 [History] Sevelamer [Renvela] 2,400 mg PO TIDWM 05/08/17 [History] Tramadol HCl [Ultram] 50 mg PO TID PRN 05/08/17 [History] Gabapentin [Neurontin] 600 mg PO TID #180 cap 05/20/17 [Rx] 3 Allergy/AdvReac Type Severity Reaction Status Date / Time bee venom protein (honey bee) AdvReac Swelling Verified 06/13/17 07:21 of Lip/Tongue/Throat potassium AdvReac Vomiting Verified 06/13/17 07:21 prednisone AdvReac Vomiting Verified 06/13/17 07:21 Review of Systems All Systems: reviewed and no additional remarkable complaints except as stated Exam - Vital Signs Vital signs: Initial Vital Signs Temp Pulse Resp BP Pulse Ox 97.4 F L 88 25 177/94 100 06/13/17 07:21 06/13/17 07:21 06/13/17 07:21 06/13/17 07:21 06/13/17 07:21 Vital Signs - Last 8 Hours Temp Pulse Resp BP Pulse Ox 06/13/17 16:46 97.9 F 76 16 184/94 95 06/13/17 16:13 17 99 Intake and Output 06/13/17 06/13/17 06/13/17 07:59 15:59 23:59 Other: Blood Glucose* 109 - General Appearance General appearance: well-developed, chronically ill, frail Exam: appears much older than listed age EENT: ATNC, PERRL, mucous membranes moist Neck: supple Respiratory: course breath sounds Cardiology: edema, regular rate, regular rhythm, normal S1, normal S2 - Dialysis Access Dialysis Vascular Access: Venous Catheter (Left TDC without erythema or exudates ) Gastrointestinal: normoactive bowel sounds, no tenderness, no guarding Integumentary: warm and dry Neurologic: no focal deficit, no asterixis, alert and oriented x3 Musculoskeletal: no deformities, no cyanosis, no clubbing Psychiatric: mood/affect appropriate, cooperative Results - Lab Results 06/15/17 03:59 06/15/17 03:59 Most recent lab results ABG pH 7.34 pH Units (7.32-7.45) 06/13/17 07:30 ABG pCO2 50 mmHg (35-45) H 06/13/17 07:30 ABG pO2 102 mmHg (85-104) 06/13/17 07:30 ABG HCO3 27 mEq/L (21-27) 06/13/17 07:30 ABG O2 Saturation 98 % (95-98) 06/13/17 07:30 Calcium 8.5 mg/dL (8.6-10.8) L 06/13/17 07:30 I reviewed the above data [place] and also reviewed progress notes, labs, imaging , med lists, vitals and I/Os. Consult Discharge Plan - Plan Instructions: Heart Failure (DC), Acute Respiratory Distress Syndrome (DC), Chronic Hypertension (DC) Additional Instructions: Follow-up appointments: If there is not an appointment listed below, please call your physician and schedule a follow-up appointment. If you have congestive heart failure and your symptoms return, make an appointment with your physician. Medication List: Carry an up to date list of medications you are taking at all time. We have given you an updated medication list including any new medications that you have been prescribed. Please provide that list to your primary provider Symptoms: If your condition changes or you experience any of the following symptoms, notify your physician immediately: Unusual or worsening pain, fever, persistent nausea and vomiting, bleeding, increase in swelling (especially in your legs), sudden weight gain, extreme dizziness, chest pain, increased drainage or redness from a wound or incision. Go to the emergency department if you experience a problem with breathing. Weights: If you have a history of swelling or shortness of breath, weigh yourself daily and notify your physician if you have a weight gain of two or more pounds in one day or 5 or more pounds in a week. If you experience any of the warning signs for stroke: Sudden numbness or weakness of the face, arm or leg; especially on one side of the body, sudden confusion, trouble speaking or understanding, sudden trouble seeing in one or both eyes, sudden trouble walking, dizziness, loss of balance or coordination, sudden sever headache with no cause; Call 911 or go to the emergency room. Stroke is a medical emergency. Some risk factors for stroke: Age, cigarette smoking, diabetes, excessive alcohol consumption, family history , high blood pressure, overweight, physical inactivity, prior stroke, heart attack, diagnosis of carotid artery stenosis or other artery disease. If you smoke, STOP: Smoking or tobacco use significantly increases your risk of heart and lung disease. Your chance of disease greatly increases if you continue to smoke. For more information, call the [place] tobacco quit line for smoking cessation 4-753-NOW ( ) Referrals: Nallely Hanna CNP [Primary Care Provider] - (Web request sent 06/14/2017)
[2017-06-13] MEDS: BuPROPion SR (12 HR) 150 MG TABLET PO SCH (21:22)
[2017-06-13] MEDS: Ondansetron ODT 4 MG TAB.RAPDIS PO SCH (21:22)
[2017-06-13] MEDS: Budesonide/Formoterol 80/4.5 MDI IH SCH (23:02)
[2017-06-14] MEDS: Ipratropium/Albuterol Neb 3 ML IH SCH ×4 (03:58→22:49)
[2017-06-14 06:31] LABS: Basophils % 0.4 %; Eosinophils # 0.3 K/mcL (0.0-0.6); Eosinophils % 3.5 %; Hematocrit 26.2 % (37.5-50.1); Immature Granulocytes % 0.9 % (0-4); Lymphocytes # 2.4 K/mcL (0.6-4.6); Lymphocytes % 30.5 %; Mean Corpuscular HGB Conc 32.8 g/dL (31.6-35.5); Mean Corpuscular Hemoglobin 28.8 pg (28.0-33.3); Mean Corpuscular Volume 87.6 fL (83.0-100.0); Mean Platelet Volume 9.3 fL (9.4-12.4); Monocytes % 12.4 %; Neutrophils # 4.2 K/mcL (1.6-8.9); Platelet Count 220 K/mcL (140-400); Red Blood Count 2.99 M/mcL (4.19-5.50); Segmented Neutrophils % 52.3 %
[2017-06-14 06:35] LABS: Hemoglobin 8.6 g/dL (12.9-16.9)
[2017-06-14 06:37] LABS: Albumin/Globulin Ratio 0.7 (1.1-2.2); Bilirubin,Total 0.5 mg/dL (0.2-1.2); Globulin 3.3 g/dL (2.4-3.5); Magnesium 1.5 mg/dL (1.6-2.6); Phosphorous 2.6 mg/dL (2.3-4.7); Potassium 3.7 mEq/L (3.5-4.5)
[2017-06-14 06:42] LABS: Albumin 2.2 g/dL (3.5-5.0); Total Protein 5.5 g/dL (6.0-8.3)
[2017-06-14] MEDS ORDERED: 0.9 % Sodium Chloride 250 ML IVC PRN (08:15)
[2017-06-14] MEDS: Insulin LISPRO 300 UNITS/3 ML VIAL SQ SCH ×3 (08:17→17:19)
[2017-06-14] MEDS: BuPROPion SR (12 HR) 150 MG TABLET PO SCH ×2 (08:19→20:27)
[2017-06-14] MEDS: hydrOXYzine pamoate 25 MG CAPSULE PO SCH ×3 (08:20→20:27)
[2017-06-14] MEDS: Gabapentin 300 MG CAPSULE PO SCH ×3 (08:20→20:27)
[2017-06-14] MEDS: Ondansetron ODT 4 MG TAB.RAPDIS PO SCH ×2 (08:20→20:27)
[2017-06-14] MEDS: Calcium Acetate 667 MG CAPSULE PO SCH ×3 (08:20→17:24)
[2017-06-14] MEDS: Aspirin 81 MG TAB.CHEW PO SCH (08:20)
--- NOTE | 2017-06-14 08:57 | Internal Med Progress Note ---
Date of Encounter: 06/14/17 Time of Encounter: 08:55 - 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 plan (1) Acute and chronic respiratory failure ([id number]) Current Visit: Yes Status: Acute 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 plan: Secondary to fluid overload with heart failure and end-stage renal disease and possibly with COPD component. Since electromechanical inspector is following and he is scheduled for dialysis today continue duo nebs and aerosol treatments Qualifiers: Respiratory failure complication: unspecified whether with hypoxia or hypercapnia Qualified Code(s): J96.20 - Acute and chronic respiratory failure , unspecified whether with hypoxia or hypercapnia (2) Hyponatremia Current Visit: Yes Status: Acute 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 plan: Likely to fluid imbalance also on medications that can cause hyponatremia such as Celexa has improved after dialysis yesterday and nephrology is following Code(s): E87.1 - Hypo-osmolality and hyponatremia SNOMED Code(s): 28110704 (3) Altered mental status Current Visit: Yes Status: Resolved Qualifiers: Altered mental status type: transient alteration of awareness Qualified Code(s): R40.4 - Transient alteration of awareness (4) Acute systolic CHF (congestive heart failure) Current Visit: No Status: Chronic 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 plan: Continue beta harley and JOSE E inhibitor scheduled for dialysis today Code(s): I50.21 - Acute systolic (congestive) heart failure SNOMED Code(s): 552943307, 357821548 (5) Hypertension Current Visit: No Status: Acute 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 plan: Has gradually increased with past 24 hrs. Continue Imdur and lisinopril and carvedilol. These medications will be held prior to dialysis. And monitor BP after dialysis Qualifiers: Hypertension type: essential hypertension Qualified Code(s): I10 - Essential (primary) hypertension Code(s): I10 - Essential (primary) hypertension SNOMED Code(s): 53391317 (6) Hypomagnesemia Current Visit: No Status: Acute 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 plan: Judicious repletion because of renal function Code(s): E83.42 - Hypomagnesemia SNOMED Code(s): 325611751 (7) Nicotine addiction Current Visit: No Status: Acute 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 plan: Ongoing discussion about cessation took place today patient acknowledges he needs to quit smoking as he needs to have a CABG soon Qualifiers: Nicotine product type: chewing tobacco Substance use status: in withdrawal Qualified Code(s): F17.223 - Nicotine dependence, chewing tobacco, with withdrawal Code(s): F17.200 - Nicotine dependence, unspecified, uncomplicated SNOMED Code (s): 78244874 (8) Anemia in chronic kidney disease Current Visit: No Status: Chronic Qualifiers: Chronic kidney disease stage: on chronic dialysis Qualified Code(s): N18.6 - End stage renal disease; D63.1 - Anemia in chronic kidney disease; Z99.2 - Dependence on renal dialysis Code(s): N18.9 - Chronic kidney disease, unspecified; D63.1 - Anemia in chronic kidney disease SNOMED Code(s): 934521191 (9) CAD (coronary artery disease) Current Visit: No Status: Chronic 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 plan: Continue aspirin and simvastatin Qualifiers: Coronary Disease-Associated Artery/Lesion type: [place] artery [place] vs. transplanted heart: [place] heart Associated angina: angina presence unspecified Qualified Code(s): I25.10 - Atherosclerotic heart disease of [place] coronary artery without angina pectoris Code(s): I25.10 - Atherosclerotic heart disease of [place] coronary artery without angina pectoris SNOMED Code(s): 27883729 (10) History of MRSA infection Current Visit: No Status: Acute 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 plan: Contact precautions Code(s): Z86.14 - Personal history of Methicillin resistant Staphylococcus aureus infection SNOMED Code(s): 624748386, 677670133 (11) H/O noncompliance with medical treatment, presenting hazards to health Current Visit: No Status: Acute 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 plan: Presents as high risk given non-compliance and significant cardiac history and current admission. Code(s): Z91.19 - Patient's noncompliance with other medical treatment and regimen SNOMED Code(s): 0942400 (12) Acute on chronic renal failure Current Visit: No Status: Acute Qualifiers: Chronic kidney disease stage: on chronic dialysis Qualified Code(s): N17.9 - Acute kidney failure, unspecified; N18.9 - Chronic kidney disease, unspecified ; Z99.2 - Dependence on renal dialysis Code(s): N17.9 - Acute kidney failure, unspecified; N18.9 - Chronic kidney disease, unspecified SNOMED Code(s): 435250394 (13) Respiratory distress Current Visit: No Status: Acute Code(s): R06.00 - Dyspnea, unspecified SNOMED Code(s): 011665974 - Time Spent With Patient Greater than 35 minutes - Subjective Interval history: No acute events overnight. No acute events per nursing. States his breathing is back at baseline he is back at 4 L O2 which is his home oxygen He denies chest pain, shortness of breath nausea vomiting headache dizziness patient scheduled for HD today blood pressure has been elevated - Constitutional Vitals: Temp Pulse Resp BP Pulse Ox 97.4 F L 84 16 192/95 94 06/14/17 08:14 06/14/17 08:14 06/14/17 08:14 06/14/17 08:14 06/14/17 08:14 General appearance: Present: cooperative, mild distress, A&O X 3, no acute distress, answers questions appropriately - Eye Eye exam: Present: normal appearance Pupils: Present: normal accommodation, PERRL - Respiratory Respiratory exam: Present: decreased breath sounds, rales, wheezes. Absent: accessory muscle use, chest wall tenderness, respiratory distress, tachypnea - Expanded Respiratory Exam Location: decreased breath sounds: Lower, Left, Right - Cardiovascular Cardiovascular exam: Present: RRR, +S1, +S2, systolic murmur. Absent: gallop, irregular rhythm, tachycardia - GI/Abdominal GI/Abdominal exam: Absent: distended, firm, guarding - Expanded GI/Abdominal Exam GI/Abdominal exam expanded: Absent: ascites - Extremities Exam Extremities exam: Present: normal capillary refill, warm. Absent: cyanotic, joint swelling, pedal edema Internal Medicine: Result - Labs CBC & Chem 7: 06/14/17 05:43 06/14/17 05:43 Labs: Short CBC 06/14/17 Range/Units 05:43 WBC 8.0 (4.3-11.1) K/mcL Hgb 8.6 L D (12.9-16.9) g/dL Hct 26.2 L (37.5-50.1) % Plt Count 220 (140-400) K/mcL Neutrophils # 4.2 (1.6-8.9) K/mcL BMP 06/14/17 05:43 Sodium 130 L D Potassium 3.7 Chloride 94 L Carbon Dioxide 28 BUN 9 Creatinine 2.75 H Glucose 68 L Calcium 8.0 L Liver Function 06/14/17 Range/Units 05:43 Total Bilirubin 0.5 (0.2-1.2) mg/dL AST 19 (5-34) Units/L ALT 6 (0-55) Units/L Alkaline Phosphatase 109 (38-126) Units/L Albumin 2.2 L D (3.5-5.0) g/dL - ABG Interpretation ABG results: ABG ABG pH 7.34 pH Units (7.32-7.45) 06/13/17 07:30 ABG pCO2 50 mmHg (35-45) H 06/13/17 07:30 ABG pO2 102 mmHg (85-104) 06/13/17 07:30 ABG O2 Saturation 98 % (95-98) 06/13/17 07:30 Consult Discharge Plan - Plan Referrals: Nallely Hanna, [facility] [Primary Care Provider] -
[2017-06-14] MEDS: Budesonide/Formoterol 80/4.5 MDI IH SCH ×2 (10:12→22:49)
--- NOTE | 2017-06-14 10:20 | Nephrology Progress Note ---
Date of Encounter: 06/14/17 Time of Encounter: 10:19 - 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 Plan (1) ESRD (end stage renal disease) on dialysis Status: Chronic UF today for further fluid removal and to help lower BPs. Antihypertensive to be given after HD. (2) Acute exacerbation of CHF (congestive heart failure) Status: Acute As per primary Qualifiers: Congestive heart failure type: unspecified congestive heart failure type Qualified Code(s): I50.9 - Heart failure, unspecified (3) Hypervolemia Status: Acute D/t noncompliance in the setting of ESRD Qualifiers: Hypervolemia type: unspecified Qualified Code(s): E87.70 - Fluid overload, unspecified (4) Shortness of breath Status: Acute See above (5) Acidosis, metabolic Status: Acute See above (6) Fluid overload Status: Acute See above Qualifiers: Hypervolemia type: unspecified Qualified Code(s): E87.70 - Fluid overload, unspecified (7) H/O noncompliance with medical treatment, presenting hazards to health Status: Acute Counseling provided (8) Hyponatremia Status: Acute Due to hypervolemia. Counseling provided Subjective Principal diagnosis: ESRD Interval history: Pt was s/e and did not affirm N/V/D or dysuria. Objective - Vital Signs Vital signs: Vital Signs Temp Pulse Resp BP Pulse Ox 06/14/17 09:55 168/89 06/14/17 09:40 168/90 06/14/17 09:25 97.1 F L 18 159/83 06/14/17 08:14 97.4 F L 84 16 192/95 94 06/14/17 04:42 97.8 F 80 16 191/97 94 06/14/17 01:10 98.2 F 80 16 172/79 97 06/13/17 23:03 18 95 06/13/17 19:25 97.9 F 78 17 169/81 96 06/13/17 16:46 97.9 F 76 16 184/94 95 06/13/17 16:13 17 99 06/13/17 15:30 97.5 F L 24 173/87 06/13/17 15:10 140/89 06/13/17 14:55 186/95 Intake and Output 06/13/17 06/14/17 06/14/17 23:59 07:59 15:59 Intake Total 0 / 0 960 / 960 Output Total 0 / 0 Balance 0 / 0 960 / 960 Intake: Oral 0 / 0 360 / 360 Intake, Rinseback and 600 / 600 Flushes Output: Urine 0 / 0 Other: Meal Breakfast Percent of Meal Consumed 100% # Bowel Movements 0 Weight 78.744 kg 78.744 kg Blood Glucose* 114 73 Hemodialysis Net Fluid 653 Removed (mL) Patient Weight 06/14/17 23:59 Weight 78.744 kg - General Appearance Exam: General appearance: well-developed, chronically ill, frail Exam: appears much older than listed age EENT: ATNC, PERRL, mucous membranes moist Neck: supple Respiratory: course breath sounds Cardiology: edema, regular rate, regular rhythm, normal S1, normal S2 - Dialysis Access Dialysis Vascular Access: Venous Catheter (Left TDC without erythema or exudates ) Gastrointestinal: normoactive bowel sounds, no tenderness, no guarding Integumentary: warm and dry Neurologic: no focal deficit, no asterixis, alert and oriented x3 Musculoskeletal: no deformities, no cyanosis, no clubbing Psychiatric: mood/affect appropriate, cooperative - Lab 06/15/17 03:59 06/15/17 03:59 Most recent lab results ABG pH 7.34 pH Units (7.32-7.45) 06/13/17 07:30 ABG pCO2 50 mmHg (35-45) H 06/13/17 07:30 ABG pO2 102 mmHg (85-104) 06/13/17 07:30 ABG HCO3 27 mEq/L (21-27) 06/13/17 07:30 ABG O2 Saturation 98 % (95-98) 06/13/17 07:30 Calcium 8.0 mg/dL (8.6-10.8) L 06/14/17 05:43 Phosphorus 2.6 mg/dL (2.3-4.7) 06/14/17 05:43 Magnesium 1.5 mg/dL (1.6-2.6) L 06/14/17 05:43 Consult Discharge Plan - Plan Instructions: Heart Failure (DC), Acute Respiratory Distress Syndrome (DC), Chronic Hypertension (DC) Additional Instructions: Follow-up appointments: If there is not an appointment listed below, please call your physician and schedule a follow-up appointment. If you have congestive heart failure and your symptoms return, make an appointment with your physician. Medication List: Carry an up to date list of medications you are taking at all time. We have given you an updated medication list including any new medications that you have been prescribed. Please provide that list to your primary provider Symptoms: If your condition changes or you experience any of the following symptoms, notify your physician immediately: Unusual or worsening pain, fever, persistent nausea and vomiting, bleeding, increase in swelling (especially in your legs), sudden weight gain, extreme dizziness, chest pain, increased drainage or redness from a wound or incision. Go to the emergency department if you experience a problem with breathing. Weights: If you have a history of swelling or shortness of breath, weigh yourself daily and notify your physician if you have a weight gain of two or more pounds in one day or 5 or more pounds in a week. If you experience any of the warning signs for stroke: Sudden numbness or weakness of the face, arm or leg; especially on one side of the body, sudden confusion, trouble speaking or understanding, sudden trouble seeing in one or both eyes, sudden trouble walking, dizziness, loss of balance or coordination, sudden sever headache with no cause; Call 911 or go to the emergency room. Stroke is a medical emergency. Some risk factors for stroke: Age, cigarette smoking, diabetes, excessive alcohol consumption, family history , high blood pressure, overweight, physical inactivity, prior stroke, heart attack, diagnosis of carotid artery stenosis or other artery disease. If you smoke, STOP: Smoking or tobacco use significantly increases your risk of heart and lung disease. Your chance of disease greatly increases if you continue to smoke. For more information, call the [place] tobacco quit line for smoking cessation -NOW ( ) Referrals: Nallely Hanna CNP [Primary Care Provider] - (Web request sent 06/14/2017)
[2017-06-14] MEDS: Furosemide 40 MG TABLET PO SCH ×2 (14:10→17:24)
[2017-06-14] MEDS: Isosorbide MONOnitrate (24 HR) 30 MG TAB.ER.24H PO SCH (14:15)
[2017-06-14] MEDS ORDERED: 0.9 % Sodium Chloride 1,000 ML ONE (17:35)
[2017-06-15] MEDS: Ipratropium/Albuterol Neb 3 ML IH SCH ×3 (04:15→16:17)
[2017-06-15 04:47] LABS: Basophils % 0.5 %; Eosinophils # 0.3 K/mcL (0.0-0.6); Eosinophils % 3.5 %; Hematocrit 26.7 % (37.5-50.1); Hemoglobin 8.5 g/dL (12.9-16.9); Immature Granulocytes % 0.9 % (0-4); Lymphocytes # 2.8 K/mcL (0.6-4.6); Lymphocytes % 31.9 %; Mean Corpuscular HGB Conc 31.8 g/dL (31.6-35.5); Mean Corpuscular Hemoglobin 28.3 pg (28.0-33.3); Mean Platelet Volume 9.3 fL (9.4-12.4); Monocytes % 11.4 %; Neutrophils # 4.5 K/mcL (1.6-8.9); Platelet Count 202 K/mcL (140-400); Red Cell Distribution Width 14.4 % (11.5-14.5); Segmented Neutrophils % 51.8 %
[2017-06-15 05:05] LABS: Calcium 8.4 mg/dL (8.6-10.8)
--- NOTE | 2017-06-15 08:24 | Internal Med Progress Note ---
Date of Encounter: 06/15/17 Time of Encounter: 08:24 - 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 plan (1) Acute and chronic respiratory failure ([id number]) Current Visit: Yes Status: Resolved 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 plan: Secondary to fluid overload. Dialysis for fluid removal as shown to improve his symptoms drastically. Qualifiers: Respiratory failure complication: unspecified whether with hypoxia or hypercapnia Qualified Code(s): J96.20 - Acute and chronic respiratory failure , unspecified whether with hypoxia or hypercapnia (2) Hyponatremia Current Visit: Yes Status: Chronic Code(s): E87.1 - Hypo-osmolality and hyponatremia SNOMED Code(s): 54053451 (3) Altered mental status Current Visit: Yes Status: Resolved Qualifiers: Altered mental status type: transient alteration of awareness Qualified Code(s): R40.4 - Transient alteration of awareness (4) Acute systolic CHF (congestive heart failure) Current Visit: No Status: Chronic 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 plan: Continue current management Code(s): I50.21 - Acute systolic (congestive) heart failure SNOMED Code(s): 922462597, 023456806 (5) Hypertension Current Visit: No Status: Acute 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 plan: Resume home meds Qualifiers: Hypertension type: essential hypertension Qualified Code(s): I10 - Essential (primary) hypertension Code(s): I10 - Essential (primary) hypertension SNOMED Code(s): 15204497 (6) Nicotine addiction Current Visit: No Status: Acute Qualifiers: Nicotine product type: chewing tobacco Substance use status: uncomplicated Qualified Code(s): F17.220 - Nicotine dependence, chewing tobacco, uncomplicated Code(s): F17.200 - Nicotine dependence, unspecified, uncomplicated SNOMED Code (s): 39798660 (7) Acute on chronic renal failure Current Visit: No Status: Acute Qualifiers: Acute renal failure type: unspecified Chronic kidney disease stage: unspecified stage Qualified Code(s): N17.9 - Acute kidney failure, unspecified ; N18.9 - Chronic kidney disease, unspecified Code(s): N17.9 - Acute kidney failure, unspecified; N18.9 - Chronic kidney disease, unspecified SNOMED Code(s): 830365221 (8) CAD (coronary artery disease) Current Visit: No Status: Chronic Qualifiers: Coronary Disease-Associated Artery/Lesion type: [place] artery [place] vs. transplanted heart: [place] heart Associated angina: angina presence unspecified Qualified Code(s): I25.10 - Atherosclerotic heart disease of [place] coronary artery without angina pectoris Code(s): I25.10 - Atherosclerotic heart disease of [place] coronary artery without angina pectoris SNOMED Code(s): 13752016 (9) H/O noncompliance with medical treatment, presenting hazards to health Current Visit: No Status: Acute Code(s): Z91.19 - Patient's noncompliance with other medical treatment and regimen SNOMED Code(s): 5325029 - Time Spent With Patient Greater than 35 minutes (Discussed with nephrology, given great improvement he is okay to be discharged home today. He does have dialysis scheduled for tomorrow and patient plans on going.) - Subjective Interval history: No acute events overnight. He denies chest pain, shortness of breath nausea vomiting headache dizziness. Blood pressure was elevated but patient has yet to receive oral meds. Breathing is at baseline after ambulating and he is at 1 L oxygen and then weaned to room air without any difficulty. - Constitutional Vitals: Temp Pulse Resp BP Pulse Ox 97.8 F 78 18 177/86 98 06/15/17 08:01 06/15/17 08:01 06/15/17 08:01 06/15/17 08:01 06/15/17 08:01 General appearance: Present: cooperative, mild distress, A&O X 3, no acute distress, answers questions appropriately - Respiratory Respiratory exam: Present: rhonchi Additional comments: Fine rhonchi at bases but improved since my exam yesterday good aeration, no wheezing - Cardiovascular Cardiovascular exam: Present: RRR, +S1, +S2. Absent: diastolic murmur, systolic murmur - GI/Abdominal GI/Abdominal exam: Present: normal bowel sounds, soft. Absent: distended Internal Medicine: Result - Labs CBC & Chem 7: 06/15/17 03:59 06/15/17 03:59 Labs: Short CBC 06/15/17 Range/Units 03:59 WBC 8.7 (4.3-11.1) K/mcL Hgb 8.5 L (12.9-16.9) g/dL Hct 26.7 L (37.5-50.1) % Plt Count 202 (140-400) K/mcL Neutrophils # 4.5 (1.6-8.9) K/mcL BMP 06/15/17 03:59 Sodium 127 L Potassium 4.0 Chloride 93 L Carbon Dioxide 26 BUN 14 Creatinine 3.90 H Glucose 71 Calcium 8.4 L - ABG Interpretation ABG results: ABG ABG pH 7.34 pH Units (7.32-7.45) 06/13/17 07:30 ABG pCO2 50 mmHg (35-45) H 06/13/17 07:30 ABG pO2 102 mmHg (85-104) 06/13/17 07:30 ABG O2 Saturation 98 % (95-98) 06/13/17 07:30 Consult Discharge Plan - Plan Referrals: Nallely Hanna, [employer]ICAL [employer] L[employer]ISON [Primary Care Provider] - (Web request sent 06/14/2017)
[2017-06-15] MEDS: Insulin LISPRO 300 UNITS/3 ML VIAL SQ SCH ×3 (08:30→16:14)
[2017-06-15] MEDS: Gabapentin 300 MG CAPSULE PO SCH ×2 (08:44→16:03)
[2017-06-15] MEDS: Ondansetron ODT 4 MG TAB.RAPDIS PO SCH (08:44)
[2017-06-15] MEDS: BuPROPion SR (12 HR) 150 MG TABLET PO SCH (08:44)
[2017-06-15] MEDS: Isosorbide MONOnitrate (24 HR) 30 MG TAB.ER.24H PO SCH (08:44)
[2017-06-15] MEDS: Furosemide 40 MG TABLET PO SCH ×2 (08:44→16:11)
[2017-06-15] MEDS: hydrOXYzine pamoate 25 MG CAPSULE PO SCH ×2 (08:44→16:03)
[2017-06-15] MEDS: Aspirin 81 MG TAB.CHEW PO SCH (08:45)
[2017-06-15] MEDS: Calcium Acetate 667 MG CAPSULE PO SCH ×3 (08:45→17:03)
[2017-06-15] MEDS: Budesonide/Formoterol 80/4.5 MDI IH SCH (11:27)
[2017-06-15 16:09] VITALS: BP 176/87
--- NOTE | 2017-06-15 17:16 | Discharge Summary ---
Date of Encounter: 06/15/17 Time of Encounter: 17:09 - Discharge Diagnosis (1) Acute and chronic respiratory failure ([id number]-[id number]) Priority: Primary Status: Resolved Qualifiers: Respiratory failure complication: unspecified whether with hypoxia or hypercapnia Qualified Code(s): J96.20 - Acute and chronic respiratory failure , unspecified whether with hypoxia or hypercapnia (2) Hyponatremia Priority: Secondary Status: Chronic Code(s): E87.1 - Hypo-osmolality and hyponatremia SNOMED Code(s): 78441106 (3) Altered mental status Priority: Secondary Status: Resolved Qualifiers: Altered mental status type: transient alteration of awareness Qualified Code(s): R40.4 - Transient alteration of awareness (4) Acute systolic CHF (congestive heart failure) Priority: Secondary Status: Chronic Code(s): I50.21 - Acute systolic (congestive) heart failure SNOMED Code(s): 678346704, 735799419 (5) Hypertension Priority: Secondary Status: Chronic Qualifiers: Hypertension type: essential hypertension Qualified Code(s): I10 - Essential (primary) hypertension Code(s): I10 - Essential (primary) hypertension SNOMED Code(s): 66735980 (6) Nicotine addiction Priority: Secondary Status: Chronic Qualifiers: Nicotine product type: chewing tobacco Substance use status: uncomplicated Qualified Code(s): F17.220 - Nicotine dependence, chewing tobacco, uncomplicated Code(s): F17.200 - Nicotine dependence, unspecified, uncomplicated SNOMED Code (s): 79525023 (7) Acute on chronic renal failure Priority: Secondary Status: Chronic Qualifiers: Acute renal failure type: unspecified Chronic kidney disease stage: unspecified stage Qualified Code(s): N17.9 - Acute kidney failure, unspecified ; N18.9 - Chronic kidney disease, unspecified Code(s): N17.9 - Acute kidney failure, unspecified; N18.9 - Chronic kidney disease, unspecified SNOMED Code(s): 593282982 (8) CAD (coronary artery disease) Priority: Secondary Status: Chronic Qualifiers: Coronary Disease-Associated Artery/Lesion type: [place] artery [place] vs. transplanted heart: [place] heart Associated angina: angina presence unspecified Qualified Code(s): I25.10 - Atherosclerotic heart disease of [place] coronary artery without angina pectoris Code(s): I25.10 - Atherosclerotic heart disease of [place] coronary artery without angina pectoris SNOMED Code(s): 86189275 (9) H/O noncompliance with medical treatment, presenting hazards to health Priority: Secondary Status: Acute Code(s): Z91.19 - Patient's noncompliance with other medical treatment and regimen SNOMED Code(s): 8625426 - Discharge Medications Home Medications: Citalopram [CeleXA] 40 mg PO DAILY 10/02/15 [History] Fluticasone/Salmeterol [Advair 250-50 Diskus] 1 puff IH BID 10/02/15 [History] Furosemide [Lasix] 40 mg PO BID 10/02/15 [History] Lidocaine Patch [Lidoderm 5% patch] 1 patch TP DAILY 10/02/15 [History] hydrOXYzine HCl [Hydroxyzine HCl] 25 mg PO TID 10/02/15 [History] Isosorbide MONOnitrate (24 HR) [Imdur] 30 mg PO DAILY #30 tab.er.24h 09/03/16 [ Rx] Ferrous Sulfate [Iron] 325 mg PO DAILY 10/04/16 [History] Carvedilol [Coreg] 6.25 mg PO BID 11/03/16 [History] Ergocalciferol (VITAMIN D2) [Vitamin D2] 50,000 unit PO QWEEK 11/03/16 [History] Lisinopril [Zestril] 10 mg PO DAILY 11/03/16 [History] Simvastatin [Zocor] 40 mg PO HS 11/03/16 [History] Tizanidine HCl [Zanaflex] 4 mg PO TID 11/03/16 [History] Ipratropium/Albuterol Sulfate [Combivent Respimat Inhal [place]] 1 puff IH QID 04/28 [History] Aspirin 81 mg PO DAILY #30 tab.chew 11/24/16 [Rx] Albuterol Sulfate [Proair Hfa] 2 puff IH Q4H PRN 05/08/17 [History] BuPROPion SR (12 HR) [Wellbutrin SR] 150 mg PO BID 05/08/17 [History] Calcium Acetate [Phos-LO] 1,334 mg PO TIDWM 05/08/17 [History] Mupirocin [Bactroban Oint] 1 appl TP BID 05/08/17 [History] Ondansetron HCl [Zofran] 4 mg PO BID 05/08/17 [History] Potassium Chloride [Klor-Con 10] 10 meq PO BID 05/08/17 [History] Sevelamer [Renvela] 2,400 mg PO TIDWM 05/08/17 [History] Tramadol HCl [Ultram] 50 mg PO TID PRN 05/08/17 [History] Gabapentin [Neurontin] 600 mg PO TID #180 cap 05/20/17 [Rx] Allergies/Adverse Reactions: 3 Allergy/AdvReac Type Severity Reaction Status Date / Time bee venom protein (honey bee) AdvReac Swelling Verified 06/13/17 07:21 of Lip/Tongue/Throat potassium AdvReac Vomiting Verified 06/13/17 07:21 prednisone AdvReac Vomiting Verified 06/13/17 07:21 Date of admission: 06/13/17 14:45 Primary care physician: Nallely Hanna CNP Consults: 06/14/17 08:15 Consult to Dialysis [CONS] ONCE 06/15/17 08:15 Consult to Dialysis [CONS] ONCE Discharging clinician: Larisa Harrison - Patient Status Disposition: Home, Self-Care Functional capacity at discharge: uses cane/walker Overall status at discharge: patient is progressing back to baseline - Discharge Instructions Follow Up With: Nallely Hanna CNP [Primary Care Provider] - (Web request sent 06/14/2017) - Diet and Activity Activity: increase activity as tolerated Interval History: 52 year old male via EMS for shortness of breath. Patient has end-stage renal disease, dialysis dependent 3 times a week. He is known to be noncompliant. Last session was Friday. Presents with tachycardia tachypnea hypertension and hypoxia. EMS said that he was cyanotic leaning forward and drooling. Patient was placed on BiPAP emergently and clinically improved within 15-20 minutes where his blood pressure heart rate and sats normalized. ED workup was completed showing acute CHF and pulmonary edema. Nephrology was contacted and emergent dialysis was arranged . No further information could be obtained as patient is quite somnolent.. Hospital course: Altered mental status improved after respiratory distress resolved. Patient required oxygen for desats for 1-1/2 days before he was able to be weaned off. Nephrology arrange for him to have dialysis for 2 days in a row and 4 kg fluid was removed. He was hyponatremic from fluid imbalance which did improve after dialysis as well. Patient was ambulating in the room without issue and without desaturating and he was then discharged home in stable condition. He is due for dialysis on his regular schedule tomorrow and patient agrees to make it to that appointment. - Time Spent with Patient Total time spent providing and/or coordinating discharge services: Greater than 30 minutes - Constitutional Vitals: Temp Pulse Resp BP Pulse Ox 98.0 F 68 16 176/87 93 06/15/17 16:07 06/15/17 16:07 06/15/17 16:07 06/15/17 16:07 06/15/17 16:07 General appearance: Present: cooperative, mild distress, A&O X 3, no acute distress, answers questions appropriately - Respiratory Respiratory exam: Absent: accessory muscle use, chest wall tenderness, decreased breath sounds Additional comments: There is good air exchange throughout, does have fine rales at the bases which is improved from my exam yesterday. No wheezing. - Cardiovascular Additional comments: Regular rate rhythm no murmurs rubs or gallops - Extremities Exam Additional comments: Trace bipedal edema which is improved since yesterday.
--- NOTE | 2017-06-15 18:32 | Physician Discharge Referral ---
Home Health/Hosp Referral Info Transfer to: Home Health Provider in Charge Post Discharge: PCP - Diagnosis (1) Acute and chronic respiratory failure ([id number]) Priority: Primary Status: Resolved (2) Hyponatremia Priority: Secondary Status: Chronic (3) Altered mental status Priority: Secondary Status: Resolved (4) Acute systolic CHF (congestive heart failure) Priority: Secondary Status: Chronic (5) Hypertension Priority: Secondary Status: Chronic (6) Nicotine addiction Priority: Secondary Status: Chronic (7) Acute on chronic renal failure Priority: Secondary Status: Chronic (8) CAD (coronary artery disease) Priority: Secondary Status: Chronic (9) H/O noncompliance with medical treatment, presenting hazards to health Priority: Secondary Status: Acute - Respiratory Orders Other (As needed.) Smoking Cessation: Smoking cessation has been advised. For more information, call the [place] Tobacco Quit Line at 0-514-NBHY-NOW. - Diet/Nutrition Diet/Nutrition Orders: Renal - Activity Activity Orders: Up ad krishna - Services Needed Following services are medically necessary services: Nursing, Physical Therapy, Occupational Therapy - Transfer Medications Home Medications: Citalopram [CeleXA] 40 mg PO DAILY 10/02/15 [History] Fluticasone/Salmeterol [Advair 250-50 Diskus] 1 puff IH BID 10/02/15 [History] Furosemide [Lasix] 40 mg PO BID 10/02/15 [History] Lidocaine Patch [Lidoderm 5% patch] 1 patch TP DAILY 10/02/15 [History] hydrOXYzine HCl [Hydroxyzine HCl] 25 mg PO TID 10/02/15 [History] Isosorbide MONOnitrate (24 HR) [Imdur] 30 mg PO DAILY #30 tab.er.24h 09/03/16 [ Rx] Ferrous Sulfate [Iron] 325 mg PO DAILY 10/04/16 [History] Carvedilol [Coreg] 6.25 mg PO BID 11/03/16 [History] Ergocalciferol (VITAMIN D2) [Vitamin D2] 50,000 unit PO QWEEK 11/03/16 [History] Lisinopril [Zestril] 10 mg PO DAILY 11/03/16 [History] Simvastatin [Zocor] 40 mg PO HS 11/03/16 [History] Tizanidine HCl [Zanaflex] 4 mg PO TID 11/03/16 [History] Ipratropium/Albuterol Sulfate [Combivent Respimat Inhal [place]] 1 puff IH QID 04/28 [History] Aspirin 81 mg PO DAILY #30 tab.chew 11/24/16 [Rx] Albuterol Sulfate [Proair Hfa] 2 puff IH Q4H PRN 05/08/17 [History] BuPROPion SR (12 HR) [Wellbutrin SR] 150 mg PO BID 05/08/17 [History] Calcium Acetate [Phos-LO] 1,334 mg PO TIDWM 05/08/17 [History] Mupirocin [Bactroban Oint] 1 appl TP BID 05/08/17 [History] Ondansetron HCl [Zofran] 4 mg PO BID 05/08/17 [History] Potassium Chloride [Klor-Con 10] 10 meq PO BID 05/08/17 [History] Sevelamer [Renvela] 2,400 mg PO TIDWM 05/08/17 [History] Tramadol HCl [Ultram] 50 mg PO TID PRN 05/08/17 [History] Gabapentin [Neurontin] 600 mg PO TID #180 cap 05/20/17 [Rx] Allergies/Adverse Reactions: 3 Allergy/AdvReac Type Severity Reaction Status Date / Time bee venom protein (honey bee) AdvReac Swelling Verified 06/13/17 07:21 of Lip/Tongue/Throat potassium AdvReac Vomiting Verified 06/13/17 07:21 prednisone AdvReac Vomiting Verified 06/13/17 07:21 Certification: Further, I certify that my clinical findings support that this patient is homebound (i.e. absences from home require considerable and taxing effort and are for medical reasons or spiritism services or infrequently or short duration when for other reasons) because: Homebound Reason: Severity of cardiac or pulmonary status limits activity tolerance Attestation: My signature below is to certify that this patient is under my care and that I, or nurse practitioner, or a physician's pastry assistant working with me, has a face-to -face encounter with this patient.
--- NOTE | 2017-06-17 08:25 | Electrocardiograph Report ---
[place] [email or web address] Test Date: 2017-06-13 Pat Name: Steve Castro Department: [id number] Room: 2A35 Gender: M Inclusion Paraeducator: [facility] : 1965 Requested By: Willis Hampton Order Number: [id number] Reading MD: David Quintana DO Measurements Intervals [place] Rate: 95 P: 31 IA: 130 QRS: 69 QRSD: 100 T: -14 QT: 362 QTc: 415 Interpretive Statements SINUS RHYTHM POSSIBLE LEFT ATRIAL ENLARGEMENT POSSIBLE INFERIOR MYOCARDIAL INFARCTION, OF INDETERMINATE AGE INTERPRETATION BASED ON A DEFAULT AGE OF 40 YEARS Electronically Signed On 06-17-2017 7:28:17 EDT by David Quintana DO
== END 2017-06-15 18:49 | disposition home or self-care (01) | DRG 194 ==
LOC: 2ANU 07:19 → EMEROO 07:19 → 2ANU 10:57
PROVIDERS: ADMIT Internal Medicine; ATTEND Internal Medicine

== ENCOUNTER 2017-06-27 06:27 | Inpatient (IN) ==
[2017-06-27] MEDS ORDERED: Ipratropium/Albuterol Neb 3 ML IH ONE (06:32)
--- NOTE | 2017-06-27 07:00 | Emergency Department Note ---
Disposition Clinical Impression: Hyponatremia CHF (congestive heart failure) Qualifiers: Congestive heart failure type: diastolic Congestive heart failure chronicity: acute on chronic Qualified Code(s): I50.33 - Acute on chronic diastolic ( congestive) heart failure Acute on chronic respiratory failure Qualifiers: Respiratory failure complication: hypoxia and hypercapnia Qualified Code(s): J96.21 - Acute and chronic respiratory failure with hypoxia Disposition: Admitted As Inpatient Condition: Fair SOB HPI - General Chief Complaint: ED Shortness of Breath/Dyspnea Stated Complaint: ANNETTA Time Seen by Provider: 06/27/17 06:30 Source: patient, EMS Mode of arrival: private vehicle Limitations: physical limitation (unable to speak in sentences - one word answers due to dyspnea) Nursing Notes Reviewed: Yes Vital Signs Reviewed: Yes - History of Present Illness Pt Subjective Complaint: shortness of breath Onset (ago): hour(s) Context: other (Chronic resp failure, ESRD, CHF) Severity: severe Consistency/Duration: constant Improves with: oxygen, upright position Worsens with: lying flat, exertion, coughing Known history of: COPD, congestive heart failure, diabetes, other (ESRD) Associated symptoms: Reports: cough, orthopnea. Denies: chest pain, pain with inspiration, fever, wheezing, sputum production, lower extremity pain, polyuria , polydipsia, parasthesias, palpitations, hemoptysis, diaphoresis, nausea/ vomiting, syncope, abdominal pain, rash, sense of impending doom Treatment prior to arrival: oxygen Cough present: Yes Cough Description: Involuntary, Dry, Hacking Cough Frequency: Intermittent Sputum production: No Sputum Amount: None - Related Data Home oxygen amount: 2 liters Home Medications Medication Instructions Recorded Confirmed Citalopram [CeleXA] 40 mg PO DAILY 10/02/15 06/27/17 Fluticasone/Salmeterol [Advair 1 puff IH BID 10/02/15 06/27/17 250-50 Diskus] Furosemide [Lasix] 40 mg PO BID 10/02/15 06/27/17 Lidocaine Patch [Lidoderm 5% patch] 1 patch TP DAILY 10/02/15 06/27/17 hydrOXYzine HCl [Hydroxyzine HCl] 25 mg PO TID 10/02/15 06/27/17 Ferrous Sulfate [Iron] 325 mg PO DAILY 10/04/16 06/27/17 Carvedilol [Coreg] 6.25 mg PO BID 11/03/16 06/27/17 Ergocalciferol (VITAMIN D2) 50,000 unit PO QWEEK 11/03/16 06/27/17 [Vitamin D2] Lisinopril [Zestril] 10 mg PO DAILY 11/03/16 06/27/17 Simvastatin [Zocor] 40 mg PO HS 11/03/16 06/27/17 Tizanidine HCl [Zanaflex] 4 mg PO TID 11/03/16 06/27/17 Ipratropium/Albuterol Sulfate 1 puff IH QID 11/19/16 06/27/17 [Combivent Respimat Inhal Fraser] Albuterol Sulfate [Proair Hfa] 2 puff IH Q4H PRN 05/08/17 06/27/17 BuPROPion SR (12 HR) [Wellbutrin 150 mg PO BID 05/08/17 06/27/17 SR] Calcium Acetate [Phos-LO] 1,334 mg PO TIDWM 05/08/17 06/27/17 Mupirocin [Bactroban Oint] 1 appl TP BID 05/08/17 06/27/17 Ondansetron HCl [Zofran] 4 mg PO BID 05/08/17 06/27/17 Potassium Chloride [Klor-Con 10] 10 meq PO BID 05/08/17 06/27/17 Sevelamer [Renvela] 2,400 mg PO TIDWM 05/08/17 06/27/17 Tramadol HCl [Ultram] 50 mg PO TID PRN 05/08/17 06/27/17 Previous Rx's Medication Instructions Recorded Isosorbide MONOnitrate (24 HR) 30 mg PO DAILY #30 tab.er.24h 09/03/16 [Imdur] Aspirin 81 mg PO DAILY #30 tab.chew 11/24/16 Gabapentin [Neurontin] 600 mg PO TID #180 cap 05/20/17 Allergies Allergy/AdvReac Type Severity Reaction Status Date / Time bee venom protein (honey bee) AdvReac Swelling Verified 06/27/17 07:39 of Lip/Tongue/Throat potassium AdvReac Vomiting Verified 06/27/17 07:39 prednisone AdvReac Vomiting Verified 06/27/17 07:39 Limitations: ROS unobtainable due to patients medical condition (Dyspneic) Past Medical History - Past Medical History Attestation: Yes The following information was validated with the patient. Source: old records reviewed Medical history: Reports: arthritis, CHF, COPD, coronary artery disease, dialysis, GERD, hyperlipidemia, hypertension, myocardial infarction, osteoporosis, peripheral artery disease, renal disease, other Surgical history: Reports: non-contributory, vascular surgery, other Psychiatric history: Reports: anxiety, bipolar, depression, other - Social History Smoking Status: Current every day smoker Smokeless Tobacco Status: Yes Alcohol use: Reports: none Drug use: Reports: marijuana Physical Exam - General Limitations: other (Bi-pap mask ) General appearance: alert, in distress - Head Head exam: atraumatic, normocephalic, normal inspection - Eye Eye exam: Present: PERRL, periorbital swelling. Absent: scleral icterus, conjunctival injection - ENT ENT exam: normal exam, normal oropharynx, mucous membranes moist - Neck Neck exam: Present: normal inspection, full ROM, trachea midline. Absent: meningismus, lymphadenopathy - Chest Chest inspection: Present: symmetric chest wall rise, other (dialysis catheter left upper chest with clean dry dressing in place. No surrounding erythema.). Absent: tenderness - Respiratory Respiratory exam: Present: respiratory distress, accessory muscle use. Absent: wheezes, stridor - Cardiovascular Cardiovascular exam: Present: regular rate, normal rhythm, normal heart sounds Course Course Narrative: Patient presents via EMS with acute respiratory distress. 60% on room air at home. Increased to 85% on CPAP per EMS. Unable to provide hx upon arrival. Known to this department for similar episodes. Due for HD today. Bipap initialted. Duoneb given. Pt allergic to steroids. No chest pain. Patient now able to speak. Patient seen also by Dr. Galdamez. He has added orders for NTG and Lasix. Pt with Hx of CHF and cxr shows edema. No concerns for infection at this time. Patient will be admmitted to hospitalist. Case also dicsussed with Dr. Zavala. - Reevaluation(s) Reevaluation #1: Patient states that he is feeling much better. He c/o low back pain but states that he always has this and its no worse than usual. Time: 07:00 Reevaluation #2: BP improved. Patient has no complaints at this time. Hospitalist and Nephrology paged. Time: 07:34 - Consultations Time: 07:38 Vital Signs Temperature 99.0 F 06/27/17 06:28 Pulse Rate 99 06/27/17 06:28 Respiratory Rate 28 06/27/17 06:28 Blood Pressure 200/120 06/27/17 06:28 O2 Sat by Pulse Oximetry 100 06/27/17 06:28 Temperature 97.0 F L 06/27/17 18:10 Pulse Rate 71 06/27/17 13:15 Respiratory Rate 17 06/27/17 18:10 Blood Pressure 135/77 06/27/17 18:10 O2 Sat by Pulse Oximetry 97 06/27/17 13:15 Oxygen Delivery Oxygen Delivery Nasal Cannula Shortness of Breath/Dyspnea - Medical Records Medical records reviewed: Yes I reviewed the patient's medical records. - Lab Data Lab results reviewed: Yes I reviewed the patient's lab results. Lab results narrative: Laboratory Last Values WBC 9.5 K/mcL (4.3-11.1) 06/27/17 06:55 RBC 3.56 M/mcL (4.19-5.50) L 06/27/17 06:55 Hgb 10.0 g/dL (12.9-16.9) L 06/27/17 06:55 Hct 32.4 % (37.5-50.1) L 06/27/17 06:55 MCV 91.0 fL (83.0-100.0) 06/27/17 06:55 MCH 28.1 pg (28.0-33.3) 06/27/17 06:55 MCHC 30.9 g/dL (31.6-35.5) L 06/27/17 06:55 RDW 14.6 % (11.5-14.5) H 06/27/17 06:55 Plt Count 424 K/mcL (140-400) H 06/27/17 06:55 MPV 9.2 fL (9.4-12.4) L 06/27/17 06:55 Immature Gran % 0.8 % (0-4) 06/27/17 06:55 Seg Neutrophils % 68.0 % 06/27/17 06:55 Lymphocytes % 19.2 % 06/27/17 06:55 Monocytes % 7.6 % 06/27/17 06:55 Eosinophils % 3.8 % 06/27/17 06:55 Basophils % 0.6 % 06/27/17 06:55 Neutrophils # 6.5 K/mcL (1.6-8.9) 06/27/17 06:55 Lymphocytes # 1.8 K/mcL (0.6-4.6) 06/27/17 06:55 Monocytes # 0.7 K/mcL (0.0-1.3) 06/27/17 06:55 Eosinophils # 0.4 K/mcL (0.0-0.6) 06/27/17 06:55 Basophils # 0.1 K/mcL (0.0-0.2) 06/27/17 06:55 PT 11.0 Seconds (9.4-12.1) 06/27/17 06:55 INR 1.0 06/27/17 06:55 APTT 35.2 Seconds (26.0-36.0) 06/27/17 06:55 ABG pH 7.32 pH Units (7.32-7.45) 06/27/17 06:56 ABG pCO2 51 mmHg (35-45) H 06/27/17 06:56 ABG pO2 107 mmHg (85-104) H 06/27/17 06:56 ABG HCO3 26 mEq/L (21-27) 06/27/17 06:56 ABG Total CO2 27.9 mEq/L (20-26) H 06/27/17 06:56 ABG O2 Saturation 98 % (95-98) 06/27/17 06:56 ABG Base Excess -0.2 mEq/L (-2.0 to 3.0) 06/27/17 06:56 Blood Gas Modality BIPAP 06/27/17 06:56 Inspired O2 40 % 06/27/17 06:56 Sodium 127 mEq/L (136-145) L 06/27/17 06:55 Potassium 4.2 mEq/L (3.5-4.5) 06/27/17 06:55 Chloride 92 mEq/L (98-109) L 06/27/17 06:55 Carbon Dioxide 25 mEq/L (19-29) 06/27/17 06:55 BUN 13 mg/dL (8-26) 06/27/17 06:55 Creatinine 3.43 mg/dL (0.72-1.25) H 06/27/17 06:55 Est GFR ( Amer) 23 (> 60) L 06/27/17 06:55 Est GFR (Non-Af Amer) 19 (> 60) L 06/27/17 06:55 BUN/Creatinine Ratio 4 (6-26) L 06/27/17 06:55 Glucose 78 mg/dL (70-99) 06/27/17 06:55 Calculated Osmolality 263 (280-300) L 06/27/17 06:55 Lactic Acid 1.0 mmol/L (0.5-2.2) 06/27/17 06:55 Calcium 8.4 mg/dL (8.6-10.8) L 06/27/17 06:55 Total Bilirubin 0.6 mg/dL (0.2-1.2) 06/27/17 06:55 Direct Bilirubin 0.2 mg/dL (0.0-0.5) 06/27/17 06:55 Indirect Bilirubin 0.4 mg/dL (0.0-1.2) 06/27/17 06:55 AST 24 Units/L (5-34) 06/27/17 06:55 ALT 6 Units/L (0-55) 06/27/17 06:55 Alkaline Phosphatase 183 Units/L (38-126) H 06/27/17 06:55 Troponin I 0.02 ng/mL (0-0.03) 06/27/17 06:55 B-Natriuretic Peptide 2438 pg/mL (0-100) H 06/27/17 06:55 Serum Total Protein 7.3 g/dL (6.0-8.3) 06/27/17 06:55 Albumin 2.8 g/dL (3.5-5.0) L 06/27/17 06:55 Globulin 4.5 g/dL (2.4-3.5) H 06/27/17 06:55 Albumin/Globulin Ratio 0.6 (1.1-2.2) L 06/27/17 06:55 Result diagrams: 06/27/17 06:55 06/27/17 06:55 Lab Results 06/27/17 06/27/17 06/27/17 Range/Units 06:55 06:55 06:55 WBC 9.5 (4.3-11.1) K/mcL RBC 3.56 L (4.19-5.50) M/mcL Hgb 10.0 L (12.9-16.9) g/dL Hct 32.4 L (37.5-50.1) % MCV 91.0 (83.0-100.0) fL MCH 28.1 (28.0-33.3) pg MCHC 30.9 L (31.6-35.5) g/dL RDW 14.6 H (11.5-14.5) % Plt Count 424 H (140-400) K/mcL MPV 9.2 L (9.4-12.4) fL Immature Gran % 0.8 (0-4) % Seg Neutrophils % 68.0 % Lymphocytes % 19.2 % Monocytes % 7.6 % Eosinophils % 3.8 % Basophils % 0.6 % Neutrophils # 6.5 (1.6-8.9) K/mcL Lymphocytes # 1.8 (0.6-4.6) K/mcL Monocytes # 0.7 (0.0-1.3) K/mcL Eosinophils # 0.4 (0.0-0.6) K/mcL Basophils # 0.1 (0.0-0.2) K/mcL PT 11.0 (9.4-12.1) Seconds INR 1.0 APTT 35.2 (26.0-36.0) Seconds ABG pH (7.32-7.45) pH Units ABG pCO2 (35-45) mmHg ABG pO2 (85-104) mmHg ABG HCO3 (21-27) mEq/L ABG Total CO2 (20-26) mEq/L ABG O2 Saturation (95-98) % ABG Base Excess (-2.0 to 3.0) mEq/L Blood Gas Modality Inspired O2 % Sodium 127 L (136-145) mEq/L Potassium 4.2 (3.5-4.5) mEq/L Chloride 92 L (98-109) mEq/L Carbon Dioxide 25 (19-29) mEq/L BUN 13 (8-26) mg/dL Creatinine 3.43 H (0.72-1.25) mg/dL Est GFR ( Amer) 23 L (> 60) Est GFR (Non-Af Amer) 19 L (> 60) BUN/Creatinine Ratio 4 L (6-26) Glucose 78 (70-99) mg/dL Calculated Osmolality 263 L (280-300) Lactic Acid (0.5-2.2) mmol/L Calcium 8.4 L (8.6-10.8) mg/dL Total Bilirubin 0.6 (0.2-1.2) mg/dL Direct Bilirubin 0.2 (0.0-0.5) mg/dL Indirect Bilirubin 0.4 (0.0-1.2) mg/dL AST 24 (5-34) Units/L ALT 6 (0-55) Units/L Alkaline Phosphatase 183 H (38-126) Units/L Troponin I (0-0.03) ng/mL B-Natriuretic Peptide (0-100) pg/mL Serum Total Protein 7.3 (6.0-8.3) g/dL Albumin 2.8 L (3.5-5.0) g/dL Globulin 4.5 H (2.4-3.5) g/dL Albumin/Globulin Ratio 0.6 L (1.1-2.2) 06/27/17 06/27/17 06/27/17 Range/Units 06:55 06:55 06:55 WBC (4.3-11.1) K/mcL RBC (4.19-5.50) M/mcL Hgb (12.9-16.9) g/dL Hct (37.5-50.1) % MCV (83.0-100.0) fL MCH (28.0-33.3) pg MCHC (31.6-35.5) g/dL RDW (11.5-14.5) % Plt Count (140-400) K/mcL MPV (9.4-12.4) fL Immature Gran % (0-4) % Seg Neutrophils % % Lymphocytes % % Monocytes % % Eosinophils % % Basophils % % Neutrophils # (1.6-8.9) K/mcL Lymphocytes # (0.6-4.6) K/mcL Monocytes # (0.0-1.3) K/mcL Eosinophils # (0.0-0.6) K/mcL Basophils # (0.0-0.2) K/mcL PT (9.4-12.1) Seconds INR APTT (26.0-36.0) Seconds ABG pH (7.32-7.45) pH Units ABG pCO2 (35-45) mmHg ABG pO2 (85-104) mmHg ABG HCO3 (21-27) mEq/L ABG Total CO2 (20-26) mEq/L ABG O2 Saturation (95-98) % ABG Base Excess (-2.0 to 3.0) mEq/L Blood Gas Modality Inspired O2 % Sodium (136-145) mEq/L Potassium (3.5-4.5) mEq/L Chloride (98-109) mEq/L Carbon Dioxide (19-29) mEq/L BUN (8-26) mg/dL Creatinine (0.72-1.25) mg/dL Est GFR ( Amer) (> 60) Est GFR (Non-Af Amer) (> 60) BUN/Creatinine Ratio (6-26) Glucose (70-99) mg/dL Calculated Osmolality (280-300) Lactic Acid 1.0 (0.5-2.2) mmol/L Calcium (8.6-10.8) mg/dL Total Bilirubin (0.2-1.2) mg/dL Direct Bilirubin (0.0-0.5) mg/dL Indirect Bilirubin (0.0-1.2) mg/dL AST (5-34) Units/L ALT (0-55) Units/L Alkaline Phosphatase (38-126) Units/L Troponin I 0.02 (0-0.03) ng/mL B-Natriuretic Peptide 2438 H (0-100) pg/mL Serum Total Protein (6.0-8.3) g/dL Albumin (3.5-5.0) g/dL Globulin (2.4-3.5) g/dL Albumin/Globulin Ratio (1.1-2.2) 06/27/17 Range/Units 06:56 WBC (4.3-11.1) K/mcL RBC (4.19-5.50) M/mcL Hgb (12.9-16.9) g/dL Hct (37.5-50.1) % MCV (83.0-100.0) fL MCH (28.0-33.3) pg MCHC (31.6-35.5) g/dL RDW (11.5-14.5) % Plt Count (140-400) K/mcL MPV (9.4-12.4) fL Immature Gran % (0-4) % Seg Neutrophils % % Lymphocytes % % Monocytes % % Eosinophils % % Basophils % % Neutrophils # (1.6-8.9) K/mcL Lymphocytes # (0.6-4.6) K/mcL Monocytes # (0.0-1.3) K/mcL Eosinophils # (0.0-0.6) K/mcL Basophils # (0.0-0.2) K/mcL PT (9.4-12.1) Seconds INR APTT (26.0-36.0) Seconds ABG pH 7.32 (7.32-7.45) pH Units ABG pCO2 51 H (35-45) mmHg ABG pO2 107 H (85-104) mmHg ABG HCO3 26 (21-27) mEq/L ABG Total CO2 27.9 H (20-26) mEq/L ABG O2 Saturation 98 (95-98) % ABG Base Excess -0.2 (-2.0 to 3.0) mEq/L Blood Gas Modality BIPAP Inspired O2 40 % Sodium (136-145) mEq/L Potassium (3.5-4.5) mEq/L Chloride (98-109) mEq/L Carbon Dioxide (19-29) mEq/L BUN (8-26) mg/dL Creatinine (0.72-1.25) mg/dL Est GFR ( Amer) (> 60) Est GFR (Non-Af Amer) (> 60) BUN/Creatinine Ratio (6-26) Glucose (70-99) mg/dL Calculated Osmolality (280-300) Lactic Acid (0.5-2.2) mmol/L Calcium (8.6-10.8) mg/dL Total Bilirubin (0.2-1.2) mg/dL Direct Bilirubin (0.0-0.5) mg/dL Indirect Bilirubin (0.0-1.2) mg/dL AST (5-34) Units/L ALT (0-55) Units/L Alkaline Phosphatase (38-126) Units/L Troponin I (0-0.03) ng/mL B-Natriuretic Peptide (0-100) pg/mL Serum Total Protein (6.0-8.3) g/dL Albumin (3.5-5.0) g/dL Globulin (2.4-3.5) g/dL Albumin/Globulin Ratio (1.1-2.2) - Radiology Data Radiology results reviewed: Yes I reviewed the patient's radiology results. Chest X-Ray 06/27/17 06:32 IMPRESSION: 1. Cardiomegaly with pulmonary edema and associated right pleural effusion with associated right basilar atelectasis, unchanged. D/ / Manjinder Sandhu MD / Manjinder Sandhu MD Interpreting Provider: Manjinder Sandhu MD - EKG Data EKG attestation: Yes I reviewed and interpreted this EKG. EKG shows normal: Reports: sinus rhythm Rate: Reports: normal Rhythm: Reports: NSR [place]/QRS: Reports: normal When compared to previous EKG there are: no significant changes Interpretation: Reports: no acute changes, normal EKG
[2017-06-27 07:05] LABS: ABG Base Excess -0.2 mEq/L (-2.0 to 3.0); ABG HCO3 26 mEq/L (21-27); ABG Oxygen Saturation 98 % (95-98); ABG PCO2 51 mmHg (35-45); ABG PH 7.32 pH Units (7.32-7.45); ABG PO2 107 mmHg (85-104); ABG TCO2 27.9 mEq/L (20-26); Blood Gas FiO2 40 %
[2017-06-27 07:05] LABS: Basophils # 0.1 K/mcL (0.0-0.2); Basophils % 0.6 %; Eosinophils # 0.4 K/mcL (0.0-0.6); Eosinophils % 3.8 %; Hematocrit 32.4 % (37.5-50.1); Immature Granulocytes % 0.8 % (0-4); Lymphocytes # 1.8 K/mcL (0.6-4.6); Lymphocytes % 19.2 %; Mean Corpuscular HGB Conc 30.9 g/dL (31.6-35.5); Mean Corpuscular Hemoglobin 28.1 pg (28.0-33.3); Mean Platelet Volume 9.2 fL (9.4-12.4); Monocytes # 0.7 K/mcL (0.0-1.3); Monocytes % 7.6 %; Neutrophils # 6.5 K/mcL (1.6-8.9); Platelet Count 424 K/mcL (140-400); Red Blood Count 3.56 M/mcL (4.19-5.50); Red Cell Distribution Width 14.6 % (11.5-14.5)
[2017-06-27 07:08] LABS: Activated Partial Thrombo Time 35.2 Seconds (26.0-36.0)
[2017-06-27 07:16] LABS: Albumin 2.8 g/dL (3.5-5.0); Albumin/Globulin Ratio 0.6 (1.1-2.2); Bilirubin,Direct 0.2 mg/dL (0.0-0.5); Bilirubin,Indirect 0.4 mg/dL (0.0-1.2); Bilirubin,Total 0.6 mg/dL (0.2-1.2); Calcium 8.4 mg/dL (8.6-10.8); Globulin 4.5 g/dL (2.4-3.5); Potassium 4.2 mEq/L (3.5-4.5); Total Protein 7.3 g/dL (6.0-8.3)
[2017-06-27] MEDS ORDERED: Furosemide 40 MG/4 ML VIAL IVP ONE ×2 (07:45→08:39)
[2017-06-27] MEDS ORDERED: Nitroglycerin 1 INCH/GM PACKET TP ONE (07:45)
[2017-06-27] MEDS ORDERED: Nitroglycerin 0.4 MG TAB.SUBL SL STA (07:46)
--- NOTE | 2017-06-27 07:52 | Emergency Department Note ---
START Narrative - START START: I examined this patient and my medical decision-making was reviewed with the PROGRAMMER BUSINESS/PA/Advanced Practice Nurse/Resident Physician. I agree with the documented findings, disposition and treatment plan as described except to the extent set forth below. I did see the patient and spoke the patient and examined him he does have significant crackles on the right-hand side consistent with pleural effusion on the right, the patient is a dialysis patient and end-stage renal disease last dialysis was 2 days ago, no chest pain or tightness or discomfort or pressure. He does not have infectious symptoms. He does have lower extremity edema. No weight gain. The patient is admitted to the hospital and nephrology as consult and. Patient will receive intravenous Lasix and nitroglycerin. 1830
[2017-06-27] MEDS ORDERED: Naloxone 0.4 MG/ML INJ IVP PRN (08:32)
[2017-06-27] MEDS ORDERED: Ondansetron 4 MG/2 ML VIAL IVP PRN (08:32)
[2017-06-27] MEDS ORDERED: Acetaminophen 325 MG TABLET PO PRN (08:32)
[2017-06-27] MEDS ORDERED: traMADol 50 MG TABLET PO PRN (08:35)
[2017-06-27] MEDS ORDERED: Furosemide 100 MG/10 ML VIAL ONE (08:51)
[2017-06-27] MEDS ORDERED: Gabapentin 300 MG CAPSULE PO SCH (09:00)
--- NOTE | 2017-06-27 10:45 | Internal Med History&Physical ---
Date of Encounter: 06/27/17 Time of Encounter: 08:30 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 Plan (1) Acute exacerbation of CHF (congestive heart failure) Current visit: No Status: Acute Suspect patient has acute on chronic systolic CHF as well as acute on chronic diastolic CHF in the setting of hypertension, as well as volume overload from end-stage renal disease. I did up titrate his Coreg, also gave 100 mg of Lasix IV stat, in addition to the BiPAP to hopefully by some time prior to hemodialysis. Patient denies any chest pain. Qualifiers: Congestive heart failure type: combined Qualified Code(s): I50.43 - Acute on chronic combined systolic (congestive) and diastolic (congestive) heart failure (2) Acute on chronic respiratory failure Current visit: No Status: Acute Multifactorial respiratory failure predominantly due to #1. He also has COPD, and ongoing tobacco abuse. I do not suspect patient's having an acute COPD exacerbation. I do not suspect he has a pneumonia. Qualifiers: Respiratory failure complication: hypoxia and hypercapnia Qualified Code(s) : J96.21 - Acute and chronic respiratory failure with hypoxia; J96.22 - Acute and chronic respiratory failure with hypercapnia (3) ESRD (end stage renal disease) on dialysis Current visit: Yes Status: Acute We see discussion above. Nephrology is consulted (4) HTN (hypertension) Current visit: Yes Status: Acute Please see discussion above regarding up titration of his medications. Qualifiers: Hypertension type: essential hypertension Qualified Code(s): I10 - Essential (primary) hypertension (5) Tobacco abuse Current visit: Yes Status: Acute Strongly advised to quit (6) COPD (chronic obstructive pulmonary disease) Current visit: Yes Status: Acute Supplemental oxygen to maintain oxygen saturations in the low 90s. Continue bronchodilators, no evidence of acute exacerbation of COPD. Qualifiers: COPD type: unspecified COPD Qualified Code(s): J44.9 - Chronic obstructive pulmonary disease, unspecified (7) Hyponatremia Current visit: Yes Status: Acute Will reassess sodium levels after dialysis and diuresis. (8) CAD (coronary artery disease) Current visit: Yes Status: Acute No angina. Monitor Qualifiers: Coronary Disease-Associated Artery/Lesion type: unspecified vessel or lesion type Associated angina: without angina Qualified Code(s): I25.10 - Atherosclerotic heart disease of [place] coronary artery without angina pectoris Internal Medicine - H&P: HPI Admitted From: Emergency Dept Plans for Post Hospital Care: Home History of present illness: 52 year old male via EMS for shortness of breath. Patient has end-stage renal disease, dialysis dependent 3 times a week. Patient also has a history of coronary artery disease, hypertension, CHF with last echo in April 28 showing an EF of 50% with moderate mitral regurgitation. He also has a history of peripheral artery disease, and COPD. He is known to be noncompliant. Last session was Friday. Presents with tachycardia tachypnea hypertension and hypoxia. EMS said that he was cyanotic leaning forward and drooling. Patient was placed on BiPAP emergently and clinically improved within 15-20 minutes where his blood pressure heart rate and sats normalized. ED workup was completed showing acute CHF and pulmonary edema. Nephrology was contacted and emergent dialysis was arranged . No further information could be obtained as patient is quite somnolent.. Hospital course: Altered mental status improved after respiratory distress resolved. Patient required oxygen for desats for 1-1/2 days before he was able to be weaned off. Nephrology arrange for him to have dialysis for 2 days in a row and 4 kg fluid was removed. He was hyponatremic from fluid imbalance which did improve after dialysis as well. Patient was ambulating in the room without issue and without desaturating and he was then discharged home in stable condition. He is due for dialysis on his regular schedule tomorrow and patient agrees to make it to that appointment. See above for prior admission HPI and Hosp Course. [facility] Patient states he was doing well up until this morning when he awoke with acute shortness of breath. He states he has been compliant with his medications and with dialysis. His last dialysis was 2 days ago as scheduled, and he is due for dialysis today. On arrival to the emergency department patient was hypertensive with a blood pressure 175/101, breathing was labored and ultimately he was placed on BiPAP at 40% which maintain sats in the 90s. Patient is presently still on BiPAP but able to tell me that he feels much better. He denies any fevers. No chest pain. He does have a chronic nonproductive cough. No abdominal pain. No nausea, vomiting, diarrhea. On exam patient is in mild respiratory distress. He has crackles at his lung bases. He has edema in her lower extremities. Laboratory studies showed a sodium of 127, potassium of 4.2, chloride 92, CO2 25. BUN/creatinine 13 over 3.43. Glucose 268. Albumin of 2.8, BNP of 2400. White blood cell count 9.5. ABG on arrival showed a pH of 7.32 with a PCO2 of 51. H and was given 100 mg of Lasix IV in the emergency room stat, and nephrology was consult for hemodialysis. She had a chest x-ray which showed pulmonary edema and a right pleural effusion which is chronic. Patient without evidence of infection. He denies any wheezing and is not felt to have a COPD exacerbation. It is felt that patient's primary reason for admission is hypervolemia. A total of 75 minutes critical care time was spent in care and management of this patient. Past Med Surg Social Fam HX - Past Medical History Medical history: arthritis, CHF, COPD, coronary artery disease, dialysis, GERD, hyperlipidemia, hypertension, myocardial infarction, osteoporosis, peripheral artery disease, renal disease, other Psychiatric history: anxiety, bipolar, depression, other - Past Surgical History Surgical History: non-contributory, vascular surgery, other - Social History Smoking Status: Current every day smoker Smokeless Tobacco Status: Yes Alcohol use: none Drug use: marijuana Occupational status: unemployed Current living situation: Home Activity Level: Independent ambulation Recent Out of Country Travel Within the Last 8 Weeks: No Exposure or Possible Exposure to Illness During Travel: No - Family History Mother Living Status: Hx Family Cardiac Disorders: Yes Father Living Status: Hx Family Cardiac Disorders: Yes Hx Family Cancer: Yes Internal Medicine - H&P: Meds Citalopram [CeleXA] 40 mg PO DAILY 10/02/15 [History] Fluticasone/Salmeterol [Advair 250-50 Diskus] 1 puff IH BID 10/02/15 [History] Furosemide [Lasix] 40 mg PO BID 10/02/15 [History] Lidocaine Patch [Lidoderm 5% patch] 1 patch TP DAILY 10/02/15 [History] hydrOXYzine HCl [Hydroxyzine HCl] 25 mg PO TID 10/02/15 [History] Isosorbide MONOnitrate (24 HR) [Imdur] 30 mg PO DAILY #30 tab.er.24h 09/03/16 [ Rx] Ferrous Sulfate [Iron] 325 mg PO DAILY 10/04/16 [History] Carvedilol [Coreg] 6.25 mg PO BID 11/03/16 [History] Ergocalciferol (VITAMIN D2) [Vitamin D2] 50,000 unit PO QWEEK 11/03/16 [History] Lisinopril [Zestril] 10 mg PO DAILY 11/03/16 [History] Simvastatin [Zocor] 40 mg PO HS 11/03/16 [History] Tizanidine HCl [Zanaflex] 4 mg PO TID 11/03/16 [History] Ipratropium/Albuterol Sulfate [Combivent Respimat Inhal [place]] 1 puff IH QID 04/28 [History] Aspirin 81 mg PO DAILY #30 tab.chew 11/24/16 [Rx] Albuterol Sulfate [Proair Hfa] 2 puff IH Q4H PRN 05/08/17 [History] BuPROPion SR (12 HR) [Wellbutrin SR] 150 mg PO BID 05/08/17 [History] Calcium Acetate [Phos-LO] 1,334 mg PO TIDWM 05/08/17 [History] Mupirocin [Bactroban Oint] 1 appl TP BID 05/08/17 [History] Ondansetron HCl [Zofran] 4 mg PO BID 05/08/17 [History] Potassium Chloride [Klor-Con 10] 10 meq PO BID 05/08/17 [History] Sevelamer [Renvela] 2,400 mg PO TIDWM 05/08/17 [History] Tramadol HCl [Ultram] 50 mg PO TID PRN 05/08/17 [History] Gabapentin [Neurontin] 600 mg PO TID #180 cap 05/20/17 [Rx] 3 Allergy/AdvReac Type Severity Reaction Status Date / Time bee venom protein (honey bee) AdvReac Swelling Verified 06/27/17 07:39 of Lip/Tongue/Throat potassium AdvReac Vomiting Verified 06/27/17 07:39 prednisone AdvReac Vomiting Verified 06/27/17 07:39 All Systems PM: A 10-system review of systems was performed and is negative for pertinent findings except as documented above in the HPI. - Constitutional Vitals: Temp Pulse Resp BP Pulse Ox 99.0 F 70 20 190/104 99 06/27/17 06:28 06/27/17 10:10 06/27/17 10:10 06/27/17 10:10 06/27/17 10:10 General appearance: Present: mild distress (Wearing BiPAP with increased work of breathing, diaphoretic and ill appearing), A&O X 3 - Head Head exam: Present: atraumatic, normocephalic - Eye Eye exam: Present: PERRL, conjuntiva pink, sclera anicteric Pupils: Present: PERRL - Neck Neck exam general surgery: Present: supple, trachea midline. Absent: lymphadenopathy - Respiratory Respiratory exam: Present: rales (No wheezing). Absent: accessory muscle use, rhonchi, wheezes - Cardiovascular Cardiovascular exam: Present: RRR, +S1, +S2. Absent: diastolic murmur, gallop, rubs, systolic murmur Additional comments: Dialysis catheter left anterior chest wall, intact - GI/Abdominal GI/Abdominal exam: Present: normal bowel sounds, soft (Abdomen is protuberant), no peritoneal signs. Absent: distended, tenderness - Extremities Exam Extremities exam: Present: pedal edema (1+ edema bilaterally), warm, radial pulses palpable and symmetrical. Absent: calf tenderness, cyanotic - Neurological Exam Neurological exam: Present: CN II-XII intact, oriented X3, no focal deficits. Absent: pronater drift, facial droop, speech deficit - Skin Skin exam: Present: diaphoretic, intact Internal Med - H&P Results - Labs CBC & Chem 7: 06/27/17 06:55 06/27/17 06:55 Labs: Short CBC 06/27/17 Range/Units 06:55 WBC 9.5 (4.3-11.1) K/mcL Hgb 10.0 L (12.9-16.9) g/dL Hct 32.4 L (37.5-50.1) % Plt Count 424 H (140-400) K/mcL Neutrophils # 6.5 (1.6-8.9) K/mcL BMP 06/27/17 06:55 Sodium 127 L Potassium 4.2 Chloride 92 L Carbon Dioxide 25 BUN 13 Creatinine 3.43 H Glucose 78 Calcium 8.4 L Cardiac Enzymes 06/27/17 Range/Units 06:55 Troponin I 0.02 (0-0.03) ng/mL Liver Function 06/27/17 Range/Units 06:55 Total Bilirubin 0.6 (0.2-1.2) mg/dL Direct Bilirubin 0.2 (0.0-0.5) mg/dL AST 24 (5-34) Units/L ALT 6 (0-55) Units/L Alkaline Phosphatase 183 H (38-126) Units/L Albumin 2.8 L (3.5-5.0) g/dL - ABG Interpretation ABG results: 06/27/17 06:56 ABG pH 7.32 ABG pCO2 51 H ABG pO2 107 H ABG HCO3 26 ABG Total CO2 27.9 H ABG O2 Saturation 98 ABG Base Excess -0.2 - Impressions ITS Impressions Chest X-Ray 06/27/17 06:32 IMPRESSION: 1. Cardiomegaly with pulmonary edema and associated right pleural effusion with associated right basilar atelectasis, unchanged. D/ / Manjinder Sandhu MD / Manjinder Sandhu MD Interpreting Provider: Manjinder Sandhu MD
[2017-06-27] MEDS ORDERED: Dextrose Gel 15 GM PO PRN ×2 (10:52)
[2017-06-27] MEDS ORDERED: *HR* Dextrose 50 % in Water (Syg) 50 ML SYRINGE IVP PRN (10:52)
[2017-06-27] MEDS ORDERED: D5% in Water 1,000 ML IVC PRN (10:52)
[2017-06-27] MEDS: Ipratropium/Albuterol Neb 3 ML IH SCH ×4 (11:31→23:43)
[2017-06-27] MEDS: Budesonide/Formoterol 80/4.5 MDI IH SCH ×2 (11:31→20:17)
[2017-06-27] MEDS ORDERED: Insulin LISPRO 300 UNITS/3 ML VIAL SQ SCH ×2 (12:00→21:00)
--- NOTE | 2017-06-27 13:07 | Nephrology Consult Note ---
Date of Encounter: 06/27/17 Time of Encounter: 13:05 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 Plan (1) ESRD (end stage renal disease) on dialysis Current Visit: Yes Status: Acute Patient received dialysis Friday. He states that he went to dialysis on Friday and simply woke up short of breath today. He received dialysis today and I saw him on dialysis which she tolerated well. We will consider repeat dialysis tomorrow to remove additional fluid if he is still here. Renal diet. Adjust medications for renal function. (2) HTN (hypertension) Current Visit: Yes Status: Acute Patient in with elevated blood pressure which is likely contributing to his diastolic heart failure. This was improving with ultrafiltration on dialysis. Qualifiers: Hypertension type: essential hypertension Qualified Code(s): I10 - Essential (primary) hypertension (3) Acute respiratory failure Current Visit: No Status: Acute Secondary to diastolic heart failure. Should improve with ultrafiltration. Qualifiers: Respiratory failure complication: unspecified whether with hypoxia or hypercapnia Qualified Code(s): J96.00 - Acute respiratory failure, unspecified whether with hypoxia or hypercapnia (4) Pulmonary hypertension Current Visit: Yes Status: Acute We will defer management to primary care team. (5) Diastolic CHF, acute Current Visit: Yes Status: Acute We will defer management to primary care team. We will remove fluid with ultrafiltration. Should improve with improvement in blood pressure. History of Present Illness - Reason for Consult Consult date: 06/27/17 end stage renal disease - Chief Complaint ESRD dyspnea - History of Present Illness Mr. Castro is well known to [facility] as a dialysis patient who frequently is in the hospital. Presents today with a complaint of shortness of breath. He reports being in his usual state of health and reports that he was on dialysis on Friday. This morning he experienced shortness of breath and came to the ER instead of going to dialysis. He denies chest pain. He has swelling of his upper lids, and is not sure where that came from. Past Med Surg Social Fam HX - Past Medical History Medical history: arthritis, CHF, COPD, coronary artery disease, dialysis, GERD, hyperlipidemia, hypertension, myocardial infarction, osteoporosis, peripheral artery disease, renal disease, other Psychiatric history: anxiety, bipolar, depression, other - Past Surgical History Surgical History: non-contributory, vascular surgery, other - Social History Smoking Status: Current every day smoker Smokeless Tobacco Status: Yes Alcohol use: none Drug use: marijuana - Family History Mother Living Status: Hx Family Cardiac Disorders: Yes Father Living Status: Hx Family Cardiac Disorders: Yes Hx Family Cancer: Yes Medications and Allergies Citalopram [CeleXA] 40 mg PO DAILY 10/02/15 [History] Fluticasone/Salmeterol [Advair 250-50 Diskus] 1 puff IH BID 10/02/15 [History] Furosemide [Lasix] 40 mg PO BID 10/02/15 [History] Lidocaine Patch [Lidoderm 5% patch] 1 patch TP DAILY 10/02/15 [History] hydrOXYzine HCl [Hydroxyzine HCl] 25 mg PO TID 10/02/15 [History] Isosorbide MONOnitrate (24 HR) [Imdur] 30 mg PO DAILY #30 tab.er.24h 09/03/16 [ Rx] Ferrous Sulfate [Iron] 325 mg PO DAILY 10/04/16 [History] Carvedilol [Coreg] 6.25 mg PO BID 11/03/16 [History] Ergocalciferol (VITAMIN D2) [Vitamin D2] 50,000 unit PO QWEEK 11/03/16 [History] Lisinopril [Zestril] 10 mg PO DAILY 11/03/16 [History] Simvastatin [Zocor] 40 mg PO HS 11/03/16 [History] Tizanidine HCl [Zanaflex] 4 mg PO TID 11/03/16 [History] Ipratropium/Albuterol Sulfate [Combivent Respimat Inhal [place]] 1 puff IH QID 04/28 [History] Aspirin 81 mg PO DAILY #30 tab.chew 11/24/16 [Rx] Albuterol Sulfate [Proair Hfa] 2 puff IH Q4H PRN 05/08/17 [History] BuPROPion SR (12 HR) [Wellbutrin SR] 150 mg PO BID 05/08/17 [History] Calcium Acetate [Phos-LO] 1,334 mg PO TIDWM 05/08/17 [History] Mupirocin [Bactroban Oint] 1 appl TP BID 05/08/17 [History] Ondansetron HCl [Zofran] 4 mg PO BID 05/08/17 [History] Potassium Chloride [Klor-Con 10] 10 meq PO BID 05/08/17 [History] Sevelamer [Renvela] 2,400 mg PO TIDWM 05/08/17 [History] Tramadol HCl [Ultram] 50 mg PO TID PRN 05/08/17 [History] Gabapentin [Neurontin] 600 mg PO TID #180 cap 05/20/17 [Rx] 3 Allergy/AdvReac Type Severity Reaction Status Date / Time bee venom protein (honey bee) AdvReac Swelling Verified 06/27/17 07:39 of Lip/Tongue/Throat potassium AdvReac Vomiting Verified 06/27/17 07:39 prednisone AdvReac Vomiting Verified 06/27/17 07:39 Exam - Vital Signs Vital signs: Initial Vital Signs Temp Pulse Resp BP Pulse Ox 99.0 F 99 28 200/120 100 06/27/17 06:28 06/27/17 06:28 06/27/17 06:28 06/27/17 06:28 06/27/17 06:28 Vital Signs - Last 8 Hours Resp BP 06/27/17 11:39 19 177/105 - General Appearance General appearance: well-developed, well-nourished, chronically ill EENT: ATNC Neck: supple Respiratory: rales (In the bases.), course breath sounds Cardiology: edema (2+ edema in the bilateral lower extremities) - Dialysis Access Dialysis Vascular Access: Venous Catheter (Left IJ tunneled catheter.) Gastrointestinal: no tenderness Integumentary: warm and dry Neurologic: alert and oriented x3 Musculoskeletal: no cyanosis Psychiatric: mood/affect appropriate Results - Lab Results 06/27/17 06:55 06/27/17 06:55 Most recent lab results ABG pH 7.32 pH Units (7.32-7.45) 06/27/17 06:56 ABG pCO2 51 mmHg (35-45) H 06/27/17 06:56 ABG pO2 107 mmHg (85-104) H 06/27/17 06:56 ABG HCO3 26 mEq/L (21-27) 06/27/17 06:56 ABG O2 Saturation 98 % (95-98) 06/27/17 06:56 Calcium 8.4 mg/dL (8.6-10.8) L 06/27/17 06:55 Consult Discharge Plan - Plan Referrals: East,Nallely L, MEKHI [Primary Care Provider] -
[2017-06-27] MEDS: hydrOXYzine pamoate 25 MG CAPSULE PO SCH ×3 (13:18→20:46)
[2017-06-27] MEDS: BuPROPion SR (12 HR) 150 MG TABLET PO SCH ×2 (13:18→20:42)
[2017-06-27] MEDS: hydrALAZINE 25 MG TABLET PO SCH ×3 (13:18→23:05)
[2017-06-27] MEDS: Isosorbide MONOnitrate (24 HR) 30 MG TAB.ER.24H PO SCH (13:18)
[2017-06-27] MEDS: Aspirin 81 MG TAB.CHEW PO SCH (13:18)
[2017-06-27] MEDS: tiZANidine 4 MG TABLET PO SCH ×3 (13:19→20:42)
[2017-06-27] MEDS: Gabapentin 300 MG CAPSULE PO SCH (13:29)
[2017-06-27] MEDS: Calcium Acetate 667 MG CAPSULE PO SCH ×2 (13:29→19:02)
[2017-06-27] MEDS ORDERED: 0.9 % Sodium Chloride 250 ML IVC PRN (13:31)
[2017-06-27] MEDS ORDERED: *HR* Heparin 10,000 UNIT/10 ML VIAL IV PRN (13:31)
[2017-06-27] MEDS ORDERED: 0.9 % Sodium Chloride 1,000 ML PRIME SCH (13:45)
[2017-06-27] MEDS ORDERED: 0.9 % Sodium Chloride 2,000 ML ONE (15:36)
[2017-06-27] MEDS: Insulin LISPRO 300 UNITS/3 ML VIAL SQ SCH (17:14)
[2017-06-27] MEDS: *HR* Heparin 5,000 UNIT/ML VIAL SQ SCH ×2 (19:02→23:03)
[2017-06-28] MEDS: Ipratropium/Albuterol Neb 3 ML IH SCH ×3 (03:32→11:34)
[2017-06-28 05:50] LABS: Basophils # 0.1 K/mcL (0.0-0.2); Eosinophils # 0.2 K/mcL (0.0-0.6); Eosinophils % 2.4 %; Hematocrit 26.8 % (37.5-50.1); Hemoglobin 8.5 g/dL (12.9-16.9); Immature Granulocytes % 0.5 % (0-4); Immature Platelets 2.8 % (1.1-6.1); Lymphocytes # 2.2 K/mcL (0.6-4.6); Lymphocytes % 34.9 %; Mean Corpuscular HGB Conc 31.7 g/dL (31.6-35.5); Mean Corpuscular Hemoglobin 28.4 pg (28.0-33.3); Mean Corpuscular Volume 89.6 fL (83.0-100.0); Mean Platelet Volume 9.3 fL (9.4-12.4); Monocytes # 0.7 K/mcL (0.0-1.3); Monocytes % 10.5 %; Neutrophils # 3.2 K/mcL (1.6-8.9); Platelet Count 337 K/mcL (140-400); Red Blood Count 2.99 M/mcL (4.19-5.50); Red Cell Distribution Width 14.4 % (11.5-14.5); Segmented Neutrophils % 50.7 %
[2017-06-28 06:03] LABS: Calcium 8.3 mg/dL (8.6-10.8)
[2017-06-28 07:36] VITALS: BP 167/85
[2017-06-28] MEDS: Budesonide/Formoterol 80/4.5 MDI IH SCH (07:36)
[2017-06-28] MEDS: Insulin LISPRO 300 UNITS/3 ML VIAL SQ SCH (07:47)
[2017-06-28] MEDS: hydrALAZINE 25 MG TABLET PO SCH (07:56)
[2017-06-28] MEDS: Isosorbide MONOnitrate (24 HR) 30 MG TAB.ER.24H PO SCH (07:56)
[2017-06-28] MEDS: *HR* Heparin 5,000 UNIT/ML VIAL SQ SCH (07:56)
[2017-06-28] MEDS: hydrOXYzine pamoate 25 MG CAPSULE PO SCH (07:56)
[2017-06-28] MEDS: Aspirin 81 MG TAB.CHEW PO SCH (07:57)
[2017-06-28] MEDS: tiZANidine 4 MG TABLET PO SCH (07:57)
[2017-06-28] MEDS: Gabapentin 300 MG CAPSULE PO SCH (07:57)
[2017-06-28] MEDS: Calcium Acetate 667 MG CAPSULE PO SCH (07:57)
[2017-06-28] MEDS ORDERED: 0.9 % Sodium Chloride 250 ML IVC PRN (09:25)
[2017-06-28] MEDS ORDERED: *HR* Heparin 10,000 UNIT/10 ML VIAL IV PRN (09:25)
--- NOTE | 2017-06-28 09:26 | Discharge Summary ---
Date of Encounter: 06/28/17 Time of Encounter: 09:23 - Discharge Diagnosis (1) Altered mental status Priority: Primary Status: Resolved Qualifiers: Altered mental status type: transient alteration of awareness Qualified Code(s): R40.4 - Transient alteration of awareness (2) ESRD (end stage renal disease) on dialysis Priority: Secondary Status: Chronic (3) Acute systolic CHF (congestive heart failure) Priority: Primary Status: Chronic (4) Noncompliance Priority: Primary Status: Chronic (5) CAD (coronary artery disease) Priority: Secondary Status: Chronic Qualifiers: Coronary Disease-Associated Artery/Lesion type: [place] artery [place] vs. transplanted heart: [place] heart Associated angina: angina presence unspecified Qualified Code(s): I25.10 - Atherosclerotic heart disease of [place] coronary artery without angina pectoris (6) Marijuana use Priority: Secondary Status: Chronic - Discharge Medications Home Medications: Citalopram [CeleXA] 40 mg PO DAILY 10/02/15 [History] Fluticasone/Salmeterol [Advair 250-50 Diskus] 1 puff IH BID 10/02/15 [History] Furosemide [Lasix] 40 mg PO BID 10/02/15 [History] Lidocaine Patch [Lidoderm 5% patch] 1 patch TP DAILY 10/02/15 [History] hydrOXYzine HCl [Hydroxyzine HCl] 25 mg PO TID 10/02/15 [History] Isosorbide MONOnitrate (24 HR) [Imdur] 30 mg PO DAILY #30 tab.er.24h 09/03/16 [ Rx] Ferrous Sulfate [Iron] 325 mg PO DAILY 10/04/16 [History] Carvedilol [Coreg] 6.25 mg PO BID 11/03/16 [History] Ergocalciferol (VITAMIN D2) [Vitamin D2] 50,000 unit PO QWEEK 11/03/16 [History] Lisinopril [Zestril] 10 mg PO DAILY 11/03/16 [History] Simvastatin [Zocor] 40 mg PO HS 11/03/16 [History] Tizanidine HCl [Zanaflex] 4 mg PO TID 11/03/16 [History] Ipratropium/Albuterol Sulfate [Combivent Respimat Inhal [place]] 1 puff IH QID 04/28 [History] Aspirin 81 mg PO DAILY #30 tab.chew 11/24/16 [Rx] Albuterol Sulfate [Proair Hfa] 2 puff IH Q4H PRN 05/08/17 [History] BuPROPion SR (12 HR) [Wellbutrin SR] 150 mg PO BID 05/08/17 [History] Calcium Acetate [Phos-LO] 1,334 mg PO TIDWM 05/08/17 [History] Mupirocin [Bactroban Oint] 1 appl TP BID 05/08/17 [History] Ondansetron HCl [Zofran] 4 mg PO BID 05/08/17 [History] Potassium Chloride [Klor-Con 10] 10 meq PO BID 05/08/17 [History] Sevelamer [Renvela] 2,400 mg PO TIDWM 05/08/17 [History] Tramadol HCl [Ultram] 50 mg PO TID PRN 05/08/17 [History] Gabapentin [Neurontin] 600 mg PO TID #180 cap 05/20/17 [Rx] Allergies/Adverse Reactions: 3 Allergy/AdvReac Type Severity Reaction Status Date / Time bee venom protein (honey bee) AdvReac Swelling Verified 06/27/17 07:39 of Lip/Tongue/Throat potassium AdvReac Vomiting Verified 06/27/17 07:39 prednisone AdvReac Vomiting Verified 06/27/17 07:39 Date of admission: 06/27/17 11:17 Primary care physician: Nallely Hanna CNP Consults: 06/27/17 13:45 Consult to Dialysis [CONS] ONCE Discharging clinician: German Leung - Patient Status Disposition: Home, Self-Care Condition: Fair Functional capacity at discharge: independent ambulation Overall status at discharge: patient is progressing back to baseline - Discharge Instructions Follow Up With: Nallely Hanna CNP [Primary Care Provider] - - Diet and Activity Activity: increase activity as tolerated Diet: low fat, low cholesterol Interval History: 52 year old male via EMS for shortness of breath. Patient has end-stage renal disease, dialysis dependent 3 times a week. Patient also has a history of coronary artery disease, hypertension, CHF with last echo in April 28 showing an EF of 50% with moderate mitral regurgitation. He also has a history of peripheral artery disease, and COPD. He is known to be noncompliant. Last session was Friday. Presents with tachycardia tachypnea hypertension and hypoxia. EMS said that he was cyanotic leaning forward and drooling. Patient was placed on BiPAP emergently and clinically improved within 15-20 minutes where his blood pressure heart rate and sats normalized. ED workup was completed showing acute CHF and pulmonary edema. Nephrology was contacted and emergent dialysis was arranged . Hospital course: Patient was hospitalized. Nephrology was consulted. Nephrology recommended adjuvant hemodialysis. Patient underwent hemodialysis. Patient tolerated hemodialysis well. Patient improved significantly after hemodialysis. I examined this patient is morning. Patient is keen to go home. Patient claims that this is a pretty usual for him. Plan: Patient will go home today. Patient will have a follow-up with the [place] [facility]. All questions answered. Patient does not need any new medications/prescription. - Time Spent with Patient Total time spent providing and/or coordinating discharge services: - Constitutional Vitals: Temp Pulse Resp BP Pulse Ox 98.4 F 78 17 167/85 97 06/28/17 07:35 06/28/17 07:35 06/28/17 07:35 06/28/17 07:35 06/28/17 07:35 General appearance: Present: mild distress (Wearing BiPAP with increased work of breathing, diaphoretic and ill appearing), A&O X 3 - Head Head exam: Present: atraumatic, normocephalic - Eye Eye exam: Present: PERRL, conjuntiva pink, sclera anicteric Pupils: Present: PERRL - Neck Neck exam general surgery: Present: supple, trachea midline. Absent: lymphadenopathy - Respiratory Respiratory exam: Present: CTAB. Absent: accessory muscle use, rales, rhonchi, wheezes - Cardiovascular Cardiovascular exam: Present: RRR, +S1, +S2. Absent: diastolic murmur, gallop, rubs, systolic murmur - GI/Abdominal GI/Abdominal exam: Present: normal bowel sounds, soft, no peritoneal signs. Absent: distended, tenderness - Extremities Exam Extremities exam: Present: warm, radial pulses palpable and symmetrical. Absent : calf tenderness, cyanotic, pedal edema - Neurological Exam Neurological exam: Present: CN II-XII intact, oriented X3, no focal deficits. Absent: pronater drift, facial droop, speech deficit - Skin Skin exam: Present: dry, intact
[2017-06-28] MEDS ORDERED: 0.9 % Sodium Chloride 1,000 ML PRIME SCH (09:30)
[2017-06-28] MEDS ORDERED: FLUARIX QUAD 2017-18 36MOS UP/PF 0.5 ML SYRINGE IM ONE (09:52)
--- NOTE | 2017-06-30 21:23 | Electrocardiograph Report ---
[address] [address] Test Date: 2017-06-27 Pat Name: Steve Castro Department: 105 Room: 2A Gender: M Last Waxer: ARMIDA : 1965 Requested By: Carla Mullen Order Number: [id number] Reading MD: Humphrey Earl MD Measurements Intervals Ruth Rate: 92 P: 31 IA: 123 QRS: 66 QRSD: 93 T: 15 QT: 367 QTc: 417 Interpretive Statements SINUS RHYTHM Electronically Signed On 06-30-2017 21:21:34 EDT by Humphrey Earl MD
== END 2017-06-28 11:45 | disposition home or self-care (01) | DRG 194 ==
LOC: 2ANU 06:27 → EMEROO 06:27 → 2ANU 12:44
PROVIDERS: ADMIT Internal Medicine; ATTEND Internal Medicine

== ENCOUNTER 2017-06-30 04:03 | Inpatient (IN) ==
[2017-06-30] MEDS ORDERED: Ipratropium/Albuterol Neb 3 ML IH ONE (04:13)
[2017-06-30] MEDS ORDERED: Ipratropium/Albuterol Neb 3 ML ONE (04:15)
--- NOTE | 2017-06-30 04:24 | Emergency Department Note ---
Disposition Clinical Impression: ESRD needing dialysis, Elevated brain natriuretic peptide (BNP) level Acute and chronic respiratory failure ([id number]) Qualifiers: Respiratory failure complication: hypoxia Qualified Code(s): J96.21 - Acute and chronic respiratory failure with hypoxia Disposition: Admitted As Inpatient Condition: Critical Time of Disposition: 06:44 SOB HPI - General Chief Complaint: ED Shortness of Breath/Dyspnea Stated Complaint: ANNETTA Time Seen by Provider: 06/30/17 04:09 Source: EMS Limitations: other Nursing Notes Reviewed: Yes Vital Signs Reviewed: Yes - History of Present Illness Mr. Castro, 52-year-old male, presents from home via EMS for evaluation of acute onset dyspnea. Onset one hour prior to arrival. Patient is dialysis dependent; last dialysis was Friday which he did on this. Next dialysis is Friday. PMH: congestive heart failure, COPD, CAD, history MT, end-stage kidney disease on dialysis, hyperlipidemia, hypertension ROS: Positive: Shortness of breath Negative: Missed dialysis, chest pains, fever, chills, nausea, vomiting - Related Data Home Medications Medication Instructions Recorded Confirmed Citalopram [CeleXA] 40 mg PO DAILY 10/02/15 06/27/17 Fluticasone/Salmeterol [Advair 1 puff IH BID 10/02/15 06/27/17 250-50 Diskus] Furosemide [Lasix] 40 mg PO BID 10/02/15 06/27/17 Lidocaine Patch [Lidoderm 5% patch] 1 patch TP DAILY 10/02/15 06/27/17 hydrOXYzine HCl [Hydroxyzine HCl] 25 mg PO TID 10/02/15 06/27/17 Ferrous Sulfate [Iron] 325 mg PO DAILY 10/04/16 06/27/17 Carvedilol [Coreg] 6.25 mg PO BID 11/03/16 06/27/17 Ergocalciferol (VITAMIN D2) 50,000 unit PO QWEEK 11/03/16 06/27/17 [Vitamin D2] Lisinopril [Zestril] 10 mg PO DAILY 11/03/16 06/27/17 Simvastatin [Zocor] 40 mg PO HS 11/03/16 06/27/17 Tizanidine HCl [Zanaflex] 4 mg PO TID 11/03/16 06/27/17 Ipratropium/Albuterol Sulfate 1 puff IH QID 11/19/16 06/27/17 [Combivent Respimat Inhal [place]] Albuterol Sulfate [Proair Hfa] 2 puff IH Q4H PRN 05/08/17 06/27/17 BuPROPion SR (12 HR) [Wellbutrin 150 mg PO BID 05/08/17 06/27/17 SR] Calcium Acetate [Phos-LO] 1,334 mg PO TIDWM 05/08/17 06/27/17 Mupirocin [Bactroban Oint] 1 appl TP BID 05/08/17 06/27/17 Ondansetron HCl [Zofran] 4 mg PO BID 05/08/17 06/27/17 Potassium Chloride [Klor-Con 10] 10 meq PO BID 05/08/17 06/27/17 Sevelamer [Renvela] 2,400 mg PO TIDWM 05/08/17 06/27/17 Tramadol HCl [Ultram] 50 mg PO TID PRN 05/08/17 06/27/17 Previous Rx's Medication Instructions Recorded Isosorbide MONOnitrate (24 HR) 30 mg PO DAILY #30 tab.er.24h 09/03/16 [Imdur] Aspirin 81 mg PO DAILY #30 tab.chew 11/24/16 Gabapentin [Neurontin] 600 mg PO TID #180 cap 05/20/17 Allergies Allergy/AdvReac Type Severity Reaction Status Date / Time bee venom protein (honey bee) AdvReac Swelling Verified 06/30/17 04:08 of Lip/Tongue/Throat potassium AdvReac Vomiting Verified 06/30/17 04:08 prednisone AdvReac Vomiting Verified 06/30/17 04:08 All systems ED: reviewed and negative except as stated. Past Medical History - Past Medical History Medical history: Reports: arthritis, CHF, COPD, coronary artery disease, dialysis, GERD, hyperlipidemia, hypertension, myocardial infarction, osteoporosis, peripheral artery disease, renal disease, other Surgical history: Reports: non-contributory, vascular surgery, other Psychiatric history: Reports: anxiety, bipolar, depression, other - Social History Smoking Status: Current every day smoker Smokeless Tobacco Status: Yes Alcohol use: Reports: none Drug use: Reports: marijuana Physical Exam Vital Signs Reviewed General: Patient is alert, oriented, and in acute respiratory distress. HEENT: No facial asymmetry. Head is normocephalic and atraumatic. Unable to assess oropharynx secondary to BiPAP mask Cardiovascular: Heart regular rate and rhythm without clicks, rubs, gallops, or murmurs. Bilateral pedal edema with stasis changes. Respiratory: Symmetric chest rise with good respiratory effort. Bilateral breath sounds globally diminished with left greater than right. Psych: Patient's affect is appropriate for situation. - General Limitations: other General appearance: in distress Course Course Narrative: Patient presents from home via EMS for evaluation of acute onset dyspnea. Patient is dialysis dependent with last session yesterday Friday. Next session Friday. Patient has a history of recurrent respiratory exacerbations which are historically substantially improved on BiPAP and with urgent dialysis. He does not use supplemental oxygen at home. Patient is hypertensive on intake. He is hypoxic with O2 sat 88% while on EMS CPAP at 10 L with heart rate 114. Anticipated admission for urgent dialysis continued BiPAP. I spoke with Dr. Richter of [facility] to confer the patient's need for dialysis this AM. Patient discussed with and accepted by Dr. Sifuentes, the admitting hospitalist. He has no additional concerns at this time. Vital Signs Temperature 97.8 F 06/30/17 04:08 Pulse Rate 103 06/30/17 04:08 Respiratory Rate 18 06/30/17 04:08 Blood Pressure 199/120 06/30/17 04:08 O2 Sat by Pulse Oximetry 92 06/30/17 04:08 Temperature 97.8 F 06/30/17 04:08 Pulse Rate 76 06/30/17 06:43 Respiratory Rate 16 06/30/17 06:43 Blood Pressure 177/96 06/30/17 06:43 O2 Sat by Pulse Oximetry 99 06/30/17 06:43 Oxygen Delivery Oxygen Delivery Bipap Shortness of Breath/Dyspnea - Medical Records Medical records reviewed: Yes I reviewed the patient's medical records. - Lab Data Lab results reviewed: Yes I reviewed the patient's lab results. Result diagrams: 06/30/17 04:12 06/30/17 04:12 Lab Results 06/30/17 06/30/17 06/30/17 Range/Units 04:12 04:12 04:12 WBC 7.3 (4.3-11.1) K/mcL RBC 3.21 L (4.19-5.50) M/mcL Hgb 9.1 L (12.9-16.9) g/dL Hct 28.9 L (37.5-50.1) % MCV 90.0 (83.0-100.0) fL MCH 28.3 (28.0-33.3) pg MCHC 31.5 L (31.6-35.5) g/dL RDW 14.1 (11.5-14.5) % Plt Count 372 (140-400) K/mcL MPV 9.3 L (9.4-12.4) fL Immature Gran % 0.7 (0-4) % Seg Neutrophils % 55.2 % Lymphocytes % 30.2 % Monocytes % 9.4 % Eosinophils % 3.7 % Basophils % 0.8 % Neutrophils # 4.0 (1.6-8.9) K/mcL Lymphocytes # 2.2 (0.6-4.6) K/mcL Monocytes # 0.7 (0.0-1.3) K/mcL Eosinophils # 0.3 (0.0-0.6) K/mcL Basophils # 0.1 (0.0-0.2) K/mcL ABG pH (7.32-7.45) pH Units ABG pCO2 (35-45) mmHg ABG pO2 (85-104) mmHg ABG HCO3 (21-27) mEq/L ABG Total CO2 (20-26) mEq/L ABG O2 Saturation (95-98) % ABG Base Excess (-2.0 to 3.0) mEq/L Blood Gas Modality Inspired O2 % Sodium 125 L (136-145) mEq/L Potassium 4.5 (3.5-4.5) mEq/L Chloride 94 L (98-109) mEq/L Carbon Dioxide 20 (19-29) mEq/L BUN 28 H D (8-26) mg/dL Creatinine 4.20 H D (0.72-1.25) mg/dL Est GFR ( Amer) 18 L (> 60) Est GFR (Non-Af Amer) 15 L (> 60) BUN/Creatinine Ratio 7 (6-26) Glucose 104 H (70-99) mg/dL Calculated Osmolality 266 L (280-300) Lactic Acid 1.1 (0.5-2.2) mmol/L Calcium 8.6 (8.6-10.8) mg/dL Troponin I (0-0.03) ng/mL B-Natriuretic Peptide (0-100) pg/mL 06/30/17 06/30/17 06/30/17 Range/Units 04:12 04:12 04:16 WBC (4.3-11.1) K/mcL RBC (4.19-5.50) M/mcL Hgb (12.9-16.9) g/dL Hct (37.5-50.1) % MCV (83.0-100.0) fL MCH (28.0-33.3) pg MCHC (31.6-35.5) g/dL RDW (11.5-14.5) % Plt Count (140-400) K/mcL MPV (9.4-12.4) fL Immature Gran % (0-4) % Seg Neutrophils % % Lymphocytes % % Monocytes % % Eosinophils % % Basophils % % Neutrophils # (1.6-8.9) K/mcL Lymphocytes # (0.6-4.6) K/mcL Monocytes # (0.0-1.3) K/mcL Eosinophils # (0.0-0.6) K/mcL Basophils # (0.0-0.2) K/mcL ABG pH 7.31 L (7.32-7.45) pH Units ABG pCO2 47 H (35-45) mmHg ABG pO2 149 H (85-104) mmHg ABG HCO3 24 (21-27) mEq/L ABG Total CO2 25.1 (20-26) mEq/L ABG O2 Saturation 99 H (95-98) % ABG Base Excess -2.6 L (-2.0 to 3.0) mEq/L Blood Gas Modality BIPAP Inspired O2 80 % Sodium (136-145) mEq/L Potassium (3.5-4.5) mEq/L Chloride (98-109) mEq/L Carbon Dioxide (19-29) mEq/L BUN (8-26) mg/dL Creatinine (0.72-1.25) mg/dL Est GFR ( Amer) (> 60) Est GFR (Non-Af Amer) (> 60) BUN/Creatinine Ratio (6-26) Glucose (70-99) mg/dL Calculated Osmolality (280-300) Lactic Acid (0.5-2.2) mmol/L Calcium (8.6-10.8) mg/dL Troponin I 0.03 (0-0.03) ng/mL B-Natriuretic Peptide 3539 H (0-100) pg/mL - Radiology Data Radiology results reviewed: Yes I reviewed the patient's radiology results. - EKG Data EKG attestation: Yes I reviewed and interpreted this EKG. EKG results narrative: EKG dated 06/30/17 at 04:09 interpreted as sinus rhythm with a rate of 96. Normal intervals. Normal axis. Nonspecific ST-T changes. Compared to previous dated 06/27/2017 showed no acute ischemic change in comparison. Attestation Statement - Attestation Attestation: I, Chava Erazo MD, personally evaluated this patient and discussed their management with the resident physician. I reviewed the resident's note and agree with the documented findings, medical decision making, and plan of care. 52-year-old male presents to the emergency department by ambulance with complaint of awakening from sleep about 1 hour prior to arrival with increased shortness of breath. Patient is a dialysis patient and has a history of recurrent similar episodes. He arrived by EMS on BiPAP. Patient's symptoms improving with the BiPAP which is typical of his course. On examination patient is a well-developed obese male in mild respiratory distress. He is alert and answers questions appropriately. No cyanosis or diaphoresis. Breath sounds are markedly decreased bilaterally with bilateral rales. No wheezes noted. Heart regular rate and rhythm. Abdomen soft with normal bowel sounds. Labs reviewed. Chest x-ray shows pulmonary edema. The hospitalist, Dr. Sifuentes, was consulted and accepted admission of the patient. Dr. 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
[2017-06-30 04:27] LABS: Basophils # 0.1 K/mcL (0.0-0.2); Basophils % 0.8 %; Eosinophils # 0.3 K/mcL (0.0-0.6); Eosinophils % 3.7 %; Hematocrit 28.9 % (37.5-50.1); Hemoglobin 9.1 g/dL (12.9-16.9); Immature Granulocytes % 0.7 % (0-4); Lymphocytes # 2.2 K/mcL (0.6-4.6); Lymphocytes % 30.2 %; Mean Corpuscular HGB Conc 31.5 g/dL (31.6-35.5); Mean Corpuscular Hemoglobin 28.3 pg (28.0-33.3); Mean Platelet Volume 9.3 fL (9.4-12.4); Monocytes # 0.7 K/mcL (0.0-1.3); Monocytes % 9.4 %; Platelet Count 372 K/mcL (140-400); Red Blood Count 3.21 M/mcL (4.19-5.50); Red Cell Distribution Width 14.1 % (11.5-14.5); Segmented Neutrophils % 55.2 %
[2017-06-30 04:32] LABS: ABG Base Excess -2.6 mEq/L (-2.0 to 3.0); ABG HCO3 24 mEq/L (21-27); ABG Oxygen Saturation 99 % (95-98); ABG PCO2 47 mmHg (35-45); ABG PH 7.31 pH Units (7.32-7.45); ABG PO2 149 mmHg (85-104); ABG TCO2 25.1 mEq/L (20-26)
[2017-06-30 04:33] LABS: Blood Gas FiO2 80 %
[2017-06-30 04:38] LABS: Calcium 8.6 mg/dL (8.6-10.8); Potassium 4.5 mEq/L (3.5-4.5)
[2017-06-30] MEDS ORDERED: Furosemide 120 MG in 0.9 % Sodium Chloride 50 ML IVPB ONE (07:45)
[2017-06-30] MEDS ORDERED: 0.9 % Sodium Chloride 250 ML IVC PRN (07:53)
[2017-06-30] MEDS ORDERED: *HR* Heparin 10,000 UNIT/10 ML VIAL IV PRN (07:53)
[2017-06-30] MEDS ORDERED: 0.9 % Sodium Chloride 1,000 ML PRIME SCH (08:00)
--- NOTE | 2017-06-30 08:27 | Internal Med History&Physical ---
Date of Encounter: 06/30/17 Time of Encounter: 07:30 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 Plan (1) Acute on chronic renal failure Current visit: No Status: Chronic Patient with worsening volume overload in need of urgent dialysis. I did give 120 mg of Lasix IV, and we will continue BiPAP which seems to be improving his symptoms. Nephrology is aware. Plan for dialysis today. Qualifiers: Acute renal failure type: unspecified Chronic kidney disease stage: unspecified stage Qualified Code(s): N17.9 - Acute kidney failure, unspecified ; N18.9 - Chronic kidney disease, unspecified (2) CHF (congestive heart failure) Current visit: No Status: Chronic His acute on chronic diastolic CHF. Treatment is to continue his home medications with likely up titration. Urgent dialysis. Qualifiers: Congestive heart failure type: diastolic Congestive heart failure chronicity: acute on chronic Qualified Code(s): I50.33 - Acute on chronic diastolic (congestive) heart failure (3) HTN (hypertension) Current visit: No Status: Chronic By pressures elevated. As mentioned above will need up titration of his medications. Should improve after dialysis as well. Qualifiers: Hypertension type: renovascular hypertension Qualified Code(s): I15.0 - Renovascular hypertension (4) Hyponatremia Current visit: Yes Status: Acute We will reassess sodium after hemodialysis. This is apparently not a new issue. (5) Acute respiratory failure with hypoxia Current visit: No Status: Acute Due to volume overload. There is mention of a possible right lower lobe opacity , although I will hold off antibiotics and reassess after dialysis. He denies any fevers. His white blood cell count is normal. A similar presentation last week and responded well to dialysis. Internal Medicine - H&P: HPI Admitted From: Emergency Dept Plans for Post Hospital Care: Home History of present illness: 52 year old male via EMS for shortness of breath. Patient has end-stage renal disease, dialysis dependent 3 times a week. Patient also has a history of coronary artery disease, hypertension, CHF with last echo in April 28 showing an EF of 50% with moderate mitral regurgitation. He also has a history of peripheral artery disease, and COPD. He is known to be noncompliant. Last session was Friday. Presents with tachycardia tachypnea hypertension and hypoxia. EMS said that he was cyanotic leaning forward and drooling. Patient was placed on BiPAP emergently and clinically improved within 15-20 minutes where his blood pressure heart rate and sats normalized. ED workup was completed showing acute CHF and pulmonary edema. Nephrology was contacted and emergent dialysis was arranged . Hospital course: Patient was hospitalized. Nephrology was consulted. Nephrology recommended adjuvant hemodialysis. Patient underwent hemodialysis. Patient tolerated hemodialysis well. Patient improved significantly after hemodialysis. I examined this patient is morning. Patient is keen to go home. Patient claims that this is a pretty usual for him. Plan: Patient will go home today. Patient will have a follow-up with the [facility]. All questions answered. Patient does not need any new medications/prescription. See above for last hospital course. Pt was dc on 06/28/17: 06/30: Patient's last hemodialysis was 3 days ago. He is due for dialysis today but again awoke with severe shortness of breath and fluid overload. He presented to the emergency room in extremis and is currently on BiPAP. Lasix 120 mg IV stat was given and nephrology has been alerted. In the ER patient has tachypnea, satting in the 90s on BiPAP. He is also hypertensive with blood pressures in the 170s systolic. He is now more awake and alert. He denies any fevers or chills. No chest pain. No nausea vomiting or diarrhea. States he has been compliant with his medications. Pt is being readmitted for urgent dialysis. A total of 44 minutes critical care time was spent in care and management of this patient. Past Med Surg Social Fam HX - Past Medical History Medical history: arthritis, CHF, COPD, coronary artery disease, dialysis, GERD, hyperlipidemia, hypertension, myocardial infarction, osteoporosis, peripheral artery disease, renal disease, other Psychiatric history: anxiety, bipolar, depression, other - Past Surgical History Surgical History: non-contributory, vascular surgery, other - Social History Smoking Status: Current every day smoker Smokeless Tobacco Status: Yes Alcohol use: none Drug use: marijuana Occupational status: unemployed Current living situation: Home - Independent Activity Level: Independent ambulation Recent Out of Country Travel Within the Last 8 Weeks: No Exposure or Possible Exposure to Illness During Travel: No - Family History Mother Living Status: Hx Family Cardiac Disorders: Yes Father Living Status: Hx Family Cardiac Disorders: Yes Hx Family Cancer: Yes - Additional Family History Additional family history: Family history reviewed and noncontributory Internal Medicine - H&P: Meds Citalopram [CeleXA] 40 mg PO DAILY 10/02/15 [History] Fluticasone/Salmeterol [Advair 250-50 Diskus] 1 puff IH BID 10/02/15 [History] Furosemide [Lasix] 40 mg PO BID 10/02/15 [History] Lidocaine Patch [Lidoderm 5% patch] 1 patch TP DAILY 10/02/15 [History] hydrOXYzine HCl [Hydroxyzine HCl] 25 mg PO TID 10/02/15 [History] Isosorbide MONOnitrate (24 HR) [Imdur] 30 mg PO DAILY #30 tab.er.24h 09/03/16 [ Rx] Ferrous Sulfate [Iron] 325 mg PO DAILY 10/04/16 [History] Carvedilol [Coreg] 6.25 mg PO BID 11/03/16 [History] Ergocalciferol (VITAMIN D2) [Vitamin D2] 50,000 unit PO QWEEK 11/03/16 [History] Lisinopril [Zestril] 10 mg PO DAILY 11/03/16 [History] Simvastatin [Zocor] 40 mg PO HS 11/03/16 [History] Tizanidine HCl [Zanaflex] 4 mg PO TID 11/03/16 [History] Ipratropium/Albuterol Sulfate [Combivent Respimat Inhal [place]] 1 puff IH QID 04/28 [History] Aspirin 81 mg PO DAILY #30 tab.chew 11/24/16 [Rx] Albuterol Sulfate [Proair Hfa] 2 puff IH Q4H PRN 05/08/17 [History] BuPROPion SR (12 HR) [Wellbutrin SR] 150 mg PO BID 05/08/17 [History] Calcium Acetate [Phos-LO] 1,334 mg PO TIDWM 05/08/17 [History] Mupirocin [Bactroban Oint] 1 appl TP BID 05/08/17 [History] Ondansetron HCl [Zofran] 4 mg PO BID 05/08/17 [History] Potassium Chloride [Klor-Con 10] 10 meq PO BID 05/08/17 [History] Sevelamer [Renvela] 2,400 mg PO TIDWM 05/08/17 [History] Tramadol HCl [Ultram] 50 mg PO TID PRN 05/08/17 [History] Gabapentin [Neurontin] 600 mg PO TID #180 cap 05/20/17 [Rx] 3 Allergy/AdvReac Type Severity Reaction Status Date / Time bee venom protein (honey bee) AdvReac Swelling Verified 06/30/17 04:08 of Lip/Tongue/Throat potassium AdvReac Vomiting Verified 06/30/17 04:08 prednisone AdvReac Vomiting Verified 06/30/17 04:08 All Systems PM: A 10-system review of systems was performed and is negative for pertinent findings except as documented above in the HPI. - Constitutional Vitals: Temp Pulse Resp BP Pulse Ox 97.8 F 76 18 177/99 99 06/30/17 04:08 06/30/17 06:43 06/30/17 07:05 06/30/17 07:05 06/30/17 06:43 General appearance: Present: A&O X 3 (Moderate respiratory distress with increased work of breathing), obese - Head Head exam: Present: atraumatic, normocephalic - Eye Eye exam: Present: PERRL, conjuntiva pink, sclera anicteric Pupils: Present: PERRL - Neck Neck exam general surgery: Present: supple, trachea midline. Absent: lymphadenopathy - Respiratory Respiratory exam: Present: accessory muscle use, rales. Absent: rhonchi, wheezes - Cardiovascular Cardiovascular exam: Present: RRR, +S1, +S2. Absent: diastolic murmur, gallop, rubs, systolic murmur Additional comments: Diffuse edema - GI/Abdominal GI/Abdominal exam: Present: distended, normal bowel sounds, soft, no peritoneal signs. Absent: tenderness - Extremities Exam Extremities exam: Present: warm, radial pulses palpable and symmetrical. Absent : calf tenderness, cyanotic, pedal edema - Neurological Exam Neurological exam: Present: CN II-XII intact, oriented X3, no focal deficits. Absent: pronater drift, facial droop, speech deficit - Skin Skin exam: Present: diaphoretic, intact Internal Med - H&P Results - Labs CBC & Chem 7: 06/30/17 04:12 06/30/17 04:12
[2017-06-30] MEDS ORDERED: Naloxone 0.4 MG/ML INJ IVP PRN (08:35)
[2017-06-30] MEDS ORDERED: Albuterol 2.5 MG/3 ML NEBULIZER IH PRN (08:40)
[2017-06-30 09:52] LABS: Hepatitis B Surface Antigen Nonreactive (Nonreactive)
[2017-06-30 09:56] LABS: Hepatitis B Surface Antibody 244.37 mIU/mL
[2017-06-30] MEDS: Budesonide/Formoterol 80/4.5 MDI IH SCH ×2 (11:10→20:12)
[2017-06-30] MEDS: Ipratropium/Albuterol Neb 3 ML IH SCH ×3 (11:10→20:12)
--- NOTE | 2017-06-30 11:25 | Nephrology Consult Note ---
Date of Encounter: 06/30/17 Time of Encounter: 11:23 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 Plan (1) Pulmonary hypertension Current Visit: Yes Status: Acute Will defer to primary team. Consider outpatient vs inpatient evaluation/ management. Will need to be cautious with fluid removal as patient may be preload dependent. (2) Acute and chronic respiratory failure ([id number]) Current Visit: Yes Status: Acute Secondary to diastolic CHF. May need to titrate Imdur. Will do daily dialysis /UF while he is an inpatient. Qualifiers: Respiratory failure complication: hypoxia Qualified Code(s): J96.21 - Acute and chronic respiratory failure with hypoxia (3) Acute exacerbation of CHF (congestive heart failure) Current Visit: No Status: Acute Secondary to diastolic CHF. May need to titrate Imdur. Will do daily dialysis /UF while he is an inpatient. Can consider cardiology evaluation. Qualifiers: Congestive heart failure type: combined Qualified Code(s): I50.43 - Acute on chronic combined systolic (congestive) and diastolic (congestive) heart failure (4) Anemia Current Visit: No Status: Acute Monitor hemoglobin. Start aranesp. Qualifiers: Qualified Code(s): D64.9 - Anemia, unspecified (5) Diastolic CHF, acute Current Visit: No Status: Acute Secondary to diastolic CHF. May need to titrate Imdur. Will do daily dialysis /UF while he is an inpatient. (6) ESRD needing dialysis Current Visit: Yes Status: Acute HD TRS and as needed. Renal diet. Adjust medications for renal function. (7) Hyponatremia Current Visit: Yes Status: Acute Should improve with dialysis. History of Present Illness - Reason for Consult Consult date: 06/30/17 end stage renal disease - Chief Complaint ESRD and dyspnea - History of Present Illness Mr. Castro is a 52 yo man with a history of ESRD and frequent admission to the hospital who presents with another episode of dyspnea. He was just discharged 06/28 and refused dialysis prior to being discharged. He was seen on dialysis and denies excessive eating or drinking. He denies chest pain, but does have dyspnea. Past Med Surg Social Fam HX - Past Medical History Medical history: arthritis, CHF, COPD, coronary artery disease, dialysis, GERD, hyperlipidemia, hypertension, myocardial infarction, osteoporosis, peripheral artery disease, renal disease, other Psychiatric history: anxiety, bipolar, depression, other - Past Surgical History Surgical History: non-contributory, vascular surgery, other - Social History Smoking Status: Current every day smoker Smokeless Tobacco Status: Yes Alcohol use: none Drug use: marijuana - Family History Mother Living Status: Hx Family Cardiac Disorders: Yes Father Living Status: Hx Family Cardiac Disorders: Yes Hx Family Cancer: Yes Medications and Allergies Citalopram [CeleXA] 40 mg PO DAILY 10/02/15 [History] Fluticasone/Salmeterol [Advair 250-50 Diskus] 1 puff IH BID 10/02/15 [History] Furosemide [Lasix] 40 mg PO BID 10/02/15 [History] Lidocaine Patch [Lidoderm 5% patch] 1 patch TP DAILY 10/02/15 [History] hydrOXYzine HCl [Hydroxyzine HCl] 25 mg PO TID 10/02/15 [History] Isosorbide MONOnitrate (24 HR) [Imdur] 30 mg PO DAILY #30 tab.er.24h 09/03/16 [ Rx] Ferrous Sulfate [Iron] 325 mg PO DAILY 10/04/16 [History] Carvedilol [Coreg] 6.25 mg PO BID 11/03/16 [History] Ergocalciferol (VITAMIN D2) [Vitamin D2] 50,000 unit PO QWEEK 11/03/16 [History] Lisinopril [Zestril] 10 mg PO DAILY 11/03/16 [History] Simvastatin [Zocor] 40 mg PO HS 11/03/16 [History] Tizanidine HCl [Zanaflex] 4 mg PO TID 11/03/16 [History] Ipratropium/Albuterol Sulfate [Combivent Respimat Inhal [place]] 1 puff IH QID 04/28 [History] Aspirin 81 mg PO DAILY #30 tab.chew 11/24/16 [Rx] Albuterol Sulfate [Proair Hfa] 2 puff IH Q4H PRN 05/08/17 [History] BuPROPion SR (12 HR) [Wellbutrin SR] 150 mg PO BID 05/08/17 [History] Calcium Acetate [Phos-LO] 1,334 mg PO TIDWM 05/08/17 [History] Mupirocin [Bactroban Oint] 1 appl TP BID 05/08/17 [History] Ondansetron HCl [Zofran] 4 mg PO BID 05/08/17 [History] Potassium Chloride [Klor-Con 10] 10 meq PO BID 05/08/17 [History] Sevelamer [Renvela] 2,400 mg PO TIDWM 05/08/17 [History] Tramadol HCl [Ultram] 50 mg PO TID PRN 05/08/17 [History] Gabapentin [Neurontin] 600 mg PO TID #180 cap 05/20/17 [Rx] 3 Allergy/AdvReac Type Severity Reaction Status Date / Time bee venom protein (honey bee) AdvReac Swelling Verified 06/30/17 04:08 of Lip/Tongue/Throat potassium AdvReac Vomiting Verified 06/30/17 04:08 prednisone AdvReac Vomiting Verified 06/30/17 04:08 Review of Systems All Systems: reviewed and no additional remarkable complaints except as stated ( as per hpi) Exam - Vital Signs Vital signs: Initial Vital Signs Temp Pulse Resp BP Pulse Ox 97.8 F 103 18 199/120 92 06/30/17 04:08 06/30/17 04:08 06/30/17 04:08 06/30/17 04:08 06/30/17 04:08 - General Appearance General appearance: well-developed, well-nourished, chronically ill EENT: ATNC Neck: supple Respiratory: course breath sounds Cardiology: no edema, regular rate, regular rhythm Gastrointestinal: no tenderness Integumentary: warm and dry Neurologic: alert and oriented x3 Musculoskeletal: no cyanosis Psychiatric: mood/affect appropriate Results - Lab Results 06/30/17 04:12 06/30/17 04:12 Most recent lab results ABG pH 7.31 pH Units (7.32-7.45) L 06/30/17 04:16 ABG pCO2 47 mmHg (35-45) H 06/30/17 04:16 ABG pO2 149 mmHg (85-104) H 06/30/17 04:16 ABG HCO3 24 mEq/L (21-27) 06/30/17 04:16 ABG O2 Saturation 99 % (95-98) H 06/30/17 04:16 Calcium 8.6 mg/dL (8.6-10.8) 06/30/17 04:12 Consult Discharge Plan - Plan Referrals: Easterday,Nallely L, TRIM LINE WORKER [Primary Care Provider] - (SENT WEB REQUEST ON 06-30-17 @ [id number])
[2017-06-30] MEDS ORDERED: 0.9 % Sodium Chloride 2,000 ML ONE (12:02)
[2017-06-30] MEDS: Aspirin 81 MG TAB.CHEW PO SCH (13:14)
[2017-06-30] MEDS: Gabapentin 300 MG CAPSULE PO SCH ×3 (13:15→21:45)
[2017-06-30] MEDS: tiZANidine 4 MG TABLET PO SCH ×3 (13:15→21:45)
[2017-06-30] MEDS: BuPROPion SR (12 HR) 150 MG TABLET PO SCH ×2 (14:18→21:44)
[2017-06-30] MEDS: hydrOXYzine pamoate 25 MG CAPSULE PO SCH ×3 (14:18→21:45)
[2017-06-30] MEDS: Isosorbide MONOnitrate (24 HR) 30 MG TAB.ER.24H PO SCH (14:27)
[2017-06-30] MEDS: Calcium Acetate 667 MG CAPSULE PO SCH ×2 (14:27→18:16)
[2017-06-30] MEDS: *HR* Heparin 5,000 UNIT/ML VIAL SQ SCH ×2 (14:27→21:45)
[2017-07-01] MEDS: Ipratropium/Albuterol Neb 3 ML IH SCH ×7 (00:26→23:47)
[2017-07-01 06:21] LABS: Basophils % 0.5 %; Eosinophils # 0.2 K/mcL (0.0-0.6); Eosinophils % 3.2 %; Hematocrit 26.2 % (37.5-50.1); Hemoglobin 8.5 g/dL (12.9-16.9); Immature Granulocytes % 0.2 % (0-4); Lymphocytes # 1.9 K/mcL (0.6-4.6); Lymphocytes % 34.4 %; Mean Corpuscular HGB Conc 32.4 g/dL (31.6-35.5); Mean Corpuscular Hemoglobin 28.7 pg (28.0-33.3); Mean Corpuscular Volume 88.5 fL (83.0-100.0); Mean Platelet Volume 9.4 fL (9.4-12.4); Monocytes # 0.6 K/mcL (0.0-1.3); Neutrophils # 2.8 K/mcL (1.6-8.9); Platelet Count 260 K/mcL (140-400); Red Blood Count 2.96 M/mcL (4.19-5.50); Red Cell Distribution Width 14.1 % (11.5-14.5); Segmented Neutrophils % 50.7 %
[2017-07-01 06:38] LABS: Calcium 8.3 mg/dL (8.6-10.8); Potassium 3.8 mEq/L (3.5-4.5)
[2017-07-01] MEDS: *HR* Heparin 5,000 UNIT/ML VIAL SQ SCH ×3 (06:50→22:57)
[2017-07-01] MEDS: Budesonide/Formoterol 80/4.5 MDI IH SCH ×2 (08:06→21:41)
[2017-07-01] MEDS: BuPROPion SR (12 HR) 150 MG TABLET PO SCH ×2 (08:19→20:12)
[2017-07-01] MEDS: Aspirin 81 MG TAB.CHEW PO SCH (08:19)
[2017-07-01] MEDS: Isosorbide MONOnitrate (24 HR) 30 MG TAB.ER.24H PO SCH (08:19)
[2017-07-01] MEDS: tiZANidine 4 MG TABLET PO SCH ×3 (08:20→20:13)
[2017-07-01] MEDS: hydrOXYzine pamoate 25 MG CAPSULE PO SCH ×3 (08:20→20:12)
[2017-07-01] MEDS: Gabapentin 300 MG CAPSULE PO SCH ×2 (08:20→15:28)
[2017-07-01] MEDS: Calcium Acetate 667 MG CAPSULE PO SCH ×3 (08:20→17:14)
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
--- NOTE | 2017-07-01 10:19 | Nephrology Progress Note ---
Date of Encounter: 07/01/17 Time of Encounter: 10:16 - Assessment and Plan (1) ESRD needing dialysis Current Visit: Yes Status: Acute Ultrafiltration today Plan for regular HD treatment tomorrow Continue renal diet Avoid nephrotoxin if possible (2) Pulmonary hypertension Current Visit: Yes Status: Acute per primary team Cautious with fluid removal as patient may be preload dependent (3) Acute exacerbation of CHF (congestive heart failure) Current Visit: No Status: Acute Increase Imdur to 60mg p.o daily UF today Qualifiers: Congestive heart failure type: combined Qualified Code(s): I50.43 - Acute on chronic combined systolic (congestive) and diastolic (congestive) heart failure (4) Hyponatremia Current Visit: No Status: Acute Improving- Na+ 127 today Should continue to improve with dialysis Subjective Principal diagnosis: Pulmonary hypertension, ESRD on dialysis, CHF Interval history: Patient seen and examined. Ready to be transported to dialysis for ultrafiltration today. Objective - Vital Signs Vital signs: Vital Signs Temp Pulse Resp BP Pulse Ox 07/01/17 08:08 16 94 07/01/17 07:48 98.1 F 70 17 156/77 94 07/01/17 05:30 98.1 F 75 19 151/74 98 07/01/17 04:38 18 90 07/01/17 00:26 16 98 07/01/17 00:16 97.7 F 66 17 129/69 98 06/30/17 21:20 98.7 F 62 18 148/83 98 06/30/17 16:23 16 99 06/30/17 15:47 98.4 F 70 16 165/93 96 06/30/17 14:26 123/85 06/30/17 13:30 97.6 F 20 160/92 06/30/17 13:05 175/97 06/30/17 12:50 179/102 06/30/17 12:35 185/100 06/30/17 12:20 169/99 06/30/17 12:05 181/100 06/30/17 11:50 168/101 06/30/17 11:35 191/102 06/30/17 11:20 177/99 06/30/17 11:05 183/86 06/30/17 10:50 176/99 06/30/17 10:35 185/79 06/30/17 10:20 183/103 Intake and Output 06/30/17 07/01/17 07/01/17 23:59 07:59 15:59 Intake Total 240 / 240 Output Total 350 / 350 Balance -110 / -110 Intake: Oral 240 / 240 Output: Urine 350 / 350 Other: Weight 79.8 kg Patient Weight 07/01/17 23:59 Weight 79.8 kg - General Appearance General appearance: Present: well-developed, well-nourished EENT: Present: ATNC, mucous membranes moist, hearing intact, vision intact Neck: Present: supple Cardiology: Present: edema, regular rate, regular rhythm Gastrointestinal: Present: no tenderness, no guarding Integumentary: Present: warm and dry Neurologic: Present: alert and oriented x3 Psychiatric: Present: mood/affect appropriate, cooperative - Lab 07/01/17 06:05 07/01/17 06:05 Most recent lab results ABG pH 7.31 pH Units (7.32-7.45) L 06/30/17 04:16 ABG pCO2 47 mmHg (35-45) H 06/30/17 04:16 ABG pO2 149 mmHg (85-104) H 06/30/17 04:16 ABG HCO3 24 mEq/L (21-27) 06/30/17 04:16 ABG O2 Saturation 99 % (95-98) H 06/30/17 04:16 Calcium 8.3 mg/dL (8.6-10.8) L 07/01/17 06:05 Consult Discharge Plan - Plan Referrals: Nallely Hanna CNP [Primary Care Provider] - 07/07/17 2:00 pm ()
[2017-07-01] MEDS ORDERED: 0.9 % Sodium Chloride 250 ML IVC PRN (10:41)
[2017-07-01] MEDS ORDERED: 0.9 % Sodium Chloride 1,000 ML PRIME SCH (10:45)
[2017-07-01] MEDS: traMADol 50 MG TABLET PO PRN (13:28)
--- NOTE | 2017-07-01 18:27 | Electrocardiograph Report ---
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
[2017-07-02] MEDS: Ipratropium/Albuterol Neb 3 ML IH SCH ×4 (04:30→15:41)
[2017-07-02] MEDS: traMADol 50 MG TABLET PO PRN (04:40)
[2017-07-02 05:29] LABS: ABG Base Excess -1.3 mEq/L (-2.0 to 3.0); ABG HCO3 24 mEq/L (21-27); ABG Oxygen Saturation 97 % (95-98); ABG PCO2 44 mmHg (35-45); ABG PH 7.35 pH Units (7.32-7.45); ABG PO2 91 mmHg (85-104); ABG TCO2 25.7 mEq/L (20-26)
[2017-07-02 06:23] LABS: Blood Gas FiO2 36 %
--- NOTE | 2017-07-02 07:33 | Internal Med Progress Note ---
<AbdonnataliaOnel - Last Filed: 07/02/17 14:53> Date of Encounter: 07/02/17 Time of Encounter: 07:33 - Assessment and plan (1) Acute on chronic renal failure Current Visit: Yes Status: Chronic Assessment and plan: Patient with known history of ESRD on dialysis MWF presented to the ED with sudden onset of shortness of breath on 06/30/17. He has a known history of recurrent respiratory exacerbations secondary to noncompliance with Bipap/CPAP and dialysis. Though according to Bipap qualification study overnight, had no desats 07/01/17 evening. Patient presented with volume overload status. Continues to have 1+ to minimal pitting edema bilateral lower extremities and decreased breath sounds without rales of right lung base. CXR revealed Right pleural effusion Patient underwent urgent dialysis and received 120mg lasix on arrival. -Nehrology on board, continue with dialysis and following recommendations -Avoid nephrotoxic agents, -Continue monitoring renal function -Monitor I&Os -Monitor vitals overnight, continue bipap in evenings. -Renal diet Qualifiers: Acute renal failure type: unspecified Chronic kidney disease stage: on chronic dialysis Qualified Code(s): N17.9 - Acute kidney failure, unspecified ; N18.9 - Chronic kidney disease, unspecified; Z99.2 - Dependence on renal dialysis (2) CHF (congestive heart failure) Current Visit: Yes Status: Chronic Assessment and plan: Known histroy of diastolic CHF, acute on chronic with exacerbation BNP 3539 Troponin 0.03 EKG revealed normal sinus rhythm, no acute changes. Last Echo 05/10/17 revealed EF 50-55%, diastolic dysfunction, severe pulm htn likely, no valvular dysfunction. ROSITA 05/14/17 revealed EF 50%, moderate mitral regurgitation with restricted motion of posterior mitral valve leaflet. CXR revealed pulmonary edema and right basilar pleuroparenchymal disease, Right pleural effusion. -Continue with dialysis, Nephro on board. -Continue Carvedilol and Lisinopril -Continue with Imdur increase at 60mg qd per Nephro recommendations Qualifiers: Congestive heart failure type: diastolic Congestive heart failure chronicity: acute on chronic Qualified Code(s): I50.33 - Acute on chronic diastolic (congestive) heart failure (3) Acute respiratory failure with hypoxia Current Visit: Yes Status: Acute Assessment and plan: Likely secondary to acute on chronic CHF exacerbation and fluid overload secondary to acute on chronic esrd on dialysis with noncompliance. ABG 06/30/17 pH7.31, pCO2 47, pO2 149, HCO3 24, O2 99% on Bipap ABG 07/02/17 overnight pH 7.35, pCO2 44, pO2 91, HCO3 24, O2 sat 97 on nasal cannula 4L -Continue per plans in assessments above. -Continue monitoring vitals -Continuous 4L nasal cannula oxygen. (4) Anemia in ESRD (end-stage renal disease) Current Visit: Yes Status: Chronic Assessment and plan: Known history of chronic anemia. Hb 8.0, continue monitoring. -Nephrology on board. -Continue Aranesp -Consider transfusion if Hb <7. (5) Hyponatremia Current Visit: Yes Status: Chronic Assessment and plan: Known history of chronic hyponatremia. Sodium 125 on admission, 127 today. Continue to monitor labs. -Nephrology on board, continue following recommendations. (6) HTN (hypertension) Current Visit: Yes Status: Chronic Assessment and plan: Known history of hypertension, uncontrolled. Bp 149/85, rate 74 Continue monitoring vitals Continue Carvedilol and Lisinopril. Also increased imdur yesterday per Nephro. Qualifiers: Hypertension type: renovascular hypertension Qualified Code(s): I15.0 - Renovascular hypertension (7) DEE (obstructive sleep apnea) Current Visit: Yes Status: Chronic Assessment and plan: Did not qualify for Bipap overnight, no desats. -To continue with 4L continuous nasal cannula oxygen. (8) DVT prophylaxis Current Visit: Yes Status: Acute Assessment and plan: Heparin for dvt ppx. - Subjective Interval history: Patient reports doing well overnight, reports he tolerated the Bipap. Reviewe through bipap qualification test with respiratory therapist and patient had no desats overnight. Patient denies chest pain or pressure, shortness of breath, cough, or increased sputum. Denies fevers, chills, sweats, nausea, vomiting, abdominal pain, changes in urination or bowels, weakness, or loss of sensation. Updated PMH: CHF unspecified, COD, CAD, ESRD on dialysis, hld, htn, osteoporosis, PAD, DEE (no desats 07/02/17 overnight), previous heroin abuse. Will continue 4L nasal cannula continuous per patient's home oxygen. - Constitutional Vitals: Temp Pulse Resp BP Pulse Ox 98.2 F 64 16 122/73 97 07/01/17 22:56 07/01/17 22:56 07/01/17 23:47 07/01/17 22:56 07/01/17 23:47 General appearance: Present: cooperative, A&O X 3, no acute distress, obese, answers questions appropriately - Head Head exam: Present: atraumatic, normal inspection, normocephalic - Eye Eye exam: Present: EOMI, normal appearance - ENT ENT exam: Present: mucous membranes moist, normal exam, normal oropharynx - Neck Neck exam general surgery: Present: full ROM, normal inspection, supple, trachea midline. Absent: tenderness - Respiratory Respiratory exam: Present: decreased breath sounds (right lower lobe). Absent: rales, rhonchi, wheezes - Cardiovascular Cardiovascular exam: Present: RRR, +S1, +S2. Absent: diastolic murmur, JVD, systolic murmur - GI/Abdominal GI/Abdominal exam: Present: normal bowel sounds, soft. Absent: distended, guarding, tenderness - Extremities Exam Extremities exam: Present: full ROM, normal capillary refill, normal inspection , pedal edema (1+ to minimal pitting edema bilateral lower extremities), warm, radial pulses palpable and symmetrical. Absent: cyanotic, tenderness - Neurological Exam Neurological exam: Present: alert, oriented X3, no focal deficits, strengths equal and symetr throughout. Absent: facial droop, speech deficit - Psychiatric Psychiatric exam: Present: normal affect, normal mood - Skin Skin exam: Present: dry, intact, normal color, warm. Absent: rash Internal Medicine: Result - Labs CBC & Chem 7: 07/02/17 06:58 07/02/17 06:58 - ABG Interpretation ABG results: ABG ABG pH 7.35 pH Units (7.32-7.45) 07/02/17 05:20 ABG pCO2 44 mmHg (35-45) 07/02/17 05:20 ABG pO2 91 mmHg (85-104) 07/02/17 05:20 ABG O2 Saturation 97 % (95-98) 07/02/17 05:20 Consult Discharge Plan - Plan Instructions: Gabapentin (By mouth), Isosorbide Mononitrate (By mouth) Referrals: Easterday,Nallely L, [facility] [employer] TENDER [Primary Care Provider] - 07/07/17 2:00 pm () <Lex Orellana - Last Filed: 07/02/17 16:57> Date of Encounter: 07/02/17 - Constitutional Vitals: Temp Pulse Resp BP Pulse Ox 98.2 F 68 14 143/88 98 07/02/17 12:40 07/02/17 12:40 07/02/17 12:40 07/02/17 12:40 07/02/17 12:40 Internal Medicine: Result - Labs CBC & Chem 7: 07/02/17 06:58 07/02/17 06:58 Labs: Short CBC 07/02/17 Range/Units 06:58 WBC 6.5 (4.3-11.1) K/mcL Hgb 8.0 L (12.9-16.9) g/dL Hct 25.3 L (37.5-50.1) % Plt Count 272 (140-400) K/mcL Neutrophils # 2.9 (1.6-8.9) K/mcL BMP 07/02/17 06:58 Sodium 127 L Potassium 3.9 Chloride 94 L Carbon Dioxide 21 BUN 29 H Creatinine 4.89 H Glucose 67 L Calcium 8.3 L - ABG Interpretation ABG results: ABG ABG pH 7.35 pH Units (7.32-7.45) 07/02/17 05:20 ABG pCO2 44 mmHg (35-45) 07/02/17 05:20 ABG pO2 91 mmHg (85-104) 07/02/17 05:20 ABG O2 Saturation 97 % (95-98) 07/02/17 05:20 - Attending Attestation I examined this patient and my medical decision-making was reviewed with the Resident Physician. I agree with the documented findings, disposition and treatment plan as described except to the extent set forth below. Patient reports improvement in shortness of breath. He says he is back to baseline. Lung exam reveals clear breath sounds. Plan: I have advised smoking cessation. I provided counseling. I counseled patient about the importance of low-sodium diet and fluid restriction.
[2017-07-02] MEDS ORDERED: 0.9 % Sodium Chloride 250 ML IVC PRN (07:37)
[2017-07-02] MEDS ORDERED: *HR* Heparin 10,000 UNIT/10 ML VIAL IV PRN (07:37)
[2017-07-02 07:41] LABS: Calcium 8.3 mg/dL (8.6-10.8); Potassium 3.9 mEq/L (3.5-4.5)
[2017-07-02] MEDS ORDERED: 0.9 % Sodium Chloride 1,000 ML PRIME SCH (07:45)
[2017-07-02 07:49] LABS: Basophils # 0.1 K/mcL (0.0-0.2); Basophils % 0.9 %; Eosinophils # 0.3 K/mcL (0.0-0.6); Eosinophils % 3.9 %; Hematocrit 25.3 % (37.5-50.1); Immature Granulocytes % 0.3 % (0-4); Lymphocytes # 2.5 K/mcL (0.6-4.6); Lymphocytes % 38.2 %; Mean Corpuscular HGB Conc 31.6 g/dL (31.6-35.5); Mean Corpuscular Hemoglobin 28.3 pg (28.0-33.3); Mean Corpuscular Volume 89.4 fL (83.0-100.0); Mean Platelet Volume 10.2 fL (9.4-12.4); Monocytes # 0.7 K/mcL (0.0-1.3); Monocytes % 11.3 %; Neutrophils # 2.9 K/mcL (1.6-8.9); Platelet Count 272 K/mcL (140-400); Red Blood Count 2.83 M/mcL (4.19-5.50); Red Cell Distribution Width 14.1 % (11.5-14.5); Segmented Neutrophils % 45.4 %
[2017-07-02] MEDS: Budesonide/Formoterol 80/4.5 MDI IH SCH (08:05)
[2017-07-02] MEDS ORDERED: Gabapentin 300 MG CAPSULE PO SCH ×2 (09:00→21:00)
[2017-07-02] MEDS ORDERED: Isosorbide MONOnitrate (24 HR) 60 MG TAB.ER.24H PO SCH (09:00)
--- NOTE | 2017-07-02 09:56 | Nephrology Progress Note ---
Date of Encounter: 07/02/17 Time of Encounter: 09:52 - Assessment and Plan (1) ESRD needing dialysis Current Visit: Yes Status: Acute HD today OK from a renal perspective to be discharged today Follow up in [facility] for regular outpatient HD treatments Continue renal diet Avoid nephrotoxin if possible (2) Pulmonary hypertension Current Visit: Yes Status: Acute per primary team Cautious with fluid removal as patient may be preload dependent (3) Acute exacerbation of CHF (congestive heart failure) Current Visit: No Status: Acute Will increase Imdur again today to 90mg daily. Believe some of patient's chest discomfort that he is thinking is fluid overload is more angina. Qualifiers: Congestive heart failure type: combined Qualified Code(s): I50.43 - Acute on chronic combined systolic (congestive) and diastolic (congestive) heart failure (4) Hyponatremia Current Visit: Yes Status: Chronic Stable Na+ 127 today Should continue to improve with dialysis Subjective Principal diagnosis: Pulmonary hypertension, ESRD on dialysis, CHF Interval history: Patient seen and examined in dialysis. States he is feeling great! Objective - Vital Signs Vital signs: Vital Signs Temp Pulse Resp BP Pulse Ox 07/02/17 08:06 18 97 07/02/17 08:03 98.3 F 74 15 149/85 95 07/01/17 23:47 16 97 07/01/17 22:56 98.2 F 64 20 122/73 95 07/01/17 21:43 16 94 07/01/17 21:38 97.9 F 60 20 123/71 93 07/01/17 16:28 97.7 F 65 16 143/82 98 07/01/17 15:55 14 96 07/01/17 12:12 98.5 F 62 14 101/58 96 07/01/17 11:45 97.5 F L 18 111/71 07/01/17 11:40 108/73 07/01/17 11:25 105/69 07/01/17 11:10 108/62 07/01/17 10:55 109/64 07/01/17 10:40 119/60 07/01/17 10:25 114/68 07/01/17 10:10 98.5 F 18 109/65 Intake and Output 07/01/17 07/02/17 07/02/17 23:59 07:59 15:59 Intake Total 840 / 840 240 / 240 Output Total 175 / 175 Balance 665 / 665 240 / 240 Intake: Oral 840 / 840 240 / 240 Output: Urine 175 / 175 Other: Meal Dinner Percent of Meal Consumed 100% - General Appearance General appearance: Present: well-developed, well-nourished EENT: Present: ATNC, mucous membranes moist, hearing intact, vision intact Neck: Present: supple Respiratory: Present: clear Cardiology: Present: no edema, normal S1, normal S2 Gastrointestinal: Present: no tenderness, no guarding Integumentary: Present: warm and dry Neurologic: Present: alert and oriented x3 Psychiatric: Present: mood/affect appropriate, cooperative - Lab 07/02/17 06:58 07/02/17 06:58 Most recent lab results ABG pH 7.35 pH Units (7.32-7.45) 07/02/17 05:20 ABG pCO2 44 mmHg (35-45) 07/02/17 05:20 ABG pO2 91 mmHg (85-104) 07/02/17 05:20 ABG HCO3 24 mEq/L (21-27) 07/02/17 05:20 ABG O2 Saturation 97 % (95-98) 07/02/17 05:20 Calcium 8.3 mg/dL (8.6-10.8) L 07/02/17 06:58 Consult Discharge Plan - Plan Referrals: Nallely Hanna CNP [Primary Care Provider] - 07/07/17 2:00 pm ()
[2017-07-02] MEDS: Aspirin 81 MG TAB.CHEW PO SCH (12:17)
[2017-07-02] MEDS: Calcium Acetate 667 MG CAPSULE PO SCH ×2 (12:17→12:46)
[2017-07-02] MEDS: hydrOXYzine pamoate 25 MG CAPSULE PO SCH ×2 (12:19→15:44)
[2017-07-02] MEDS: BuPROPion SR (12 HR) 150 MG TABLET PO SCH (12:20)
[2017-07-02] MEDS: tiZANidine 4 MG TABLET PO SCH ×2 (12:21→15:44)
[2017-07-02] MEDS: *HR* Heparin 5,000 UNIT/ML VIAL SQ SCH (12:21)
[2017-07-02 12:46] VITALS: BP 143/88
--- NOTE | 2017-07-02 15:02 | Discharge Summary ---
<AbdonnataliaMurielOnel Booker - Last Filed: 07/02/17 16:53> Date of Encounter: 07/02/17 Time of Encounter: 15:01 - Discharge Diagnosis (1) Acute on chronic renal failure Priority: Primary Status: Chronic Comments: SEE [facility] MED RECONCILIATION AND SCRIPTS, [facility] ISSUE. Qualifiers: Acute renal failure type: unspecified Chronic kidney disease stage: on chronic dialysis Qualified Code(s): N17.9 - Acute kidney failure, unspecified ; N18.9 - Chronic kidney disease, unspecified; Z99.2 - Dependence on renal dialysis (2) CHF (congestive heart failure) Priority: Primary Status: Chronic Qualifiers: Congestive heart failure type: diastolic Congestive heart failure chronicity: acute on chronic Qualified Code(s): I50.33 - Acute on chronic diastolic (congestive) heart failure (3) Acute respiratory failure with hypoxia Priority: Primary Status: Acute (4) Anemia in ESRD (end-stage renal disease) Priority: Secondary Status: Chronic (5) Hyponatremia Priority: Secondary Status: Chronic (6) HTN (hypertension) Priority: Secondary Status: Chronic Qualifiers: Hypertension type: renovascular hypertension Qualified Code(s): I15.0 - Renovascular hypertension (7) DEE (obstructive sleep apnea) Priority: Secondary Status: Chronic - Discharge Medications Home Medications: Citalopram [CeleXA] 40 mg PO DAILY 10/02/15 [History] Fluticasone/Salmeterol [Advair 250-50 Diskus] 1 puff IH BID 10/02/15 [History] Furosemide [Lasix] 40 mg PO BID 10/02/15 [History] Lidocaine Patch [Lidoderm 5% patch] 1 patch TP DAILY 10/02/15 [History] hydrOXYzine HCl [Hydroxyzine HCl] 25 mg PO TID 10/02/15 [History] Isosorbide MONOnitrate (24 HR) [Imdur] 30 mg PO DAILY #30 tab.er.24h 09/03/16 [ Rx] Ferrous Sulfate [Iron] 325 mg PO DAILY 10/04/16 [History] Carvedilol [Coreg] 6.25 mg PO BID 11/03/16 [History] Ergocalciferol (VITAMIN D2) [Vitamin D2] 50,000 unit PO QWEEK 11/03/16 [History] Lisinopril [Zestril] 10 mg PO DAILY 11/03/16 [History] Simvastatin [Zocor] 40 mg PO HS 11/03/16 [History] Tizanidine HCl [Zanaflex] 4 mg PO TID 11/03/16 [History] Ipratropium/Albuterol Sulfate [Combivent Respimat Inhal [place]] 1 puff IH QID 04/28 [History] Aspirin 81 mg PO DAILY #30 tab.chew 11/24/16 [Rx] Albuterol Sulfate [Proair Hfa] 2 puff IH Q4H PRN 05/08/17 [History] BuPROPion SR (12 HR) [Wellbutrin SR] 150 mg PO BID 05/08/17 [History] Calcium Acetate [Phos-LO] 1,334 mg PO TIDWM 05/08/17 [History] Mupirocin [Bactroban Oint] 1 appl TP BID 05/08/17 [History] Ondansetron HCl [Zofran] 4 mg PO BID 05/08/17 [History] Potassium Chloride [Klor-Con 10] 10 meq PO BID 05/08/17 [History] Sevelamer [Renvela] 2,400 mg PO TIDWM 05/08/17 [History] Tramadol HCl [Ultram] 50 mg PO TID PRN 05/08/17 [History] Gabapentin [Neurontin] 600 mg PO TID #180 cap 05/20/17 [Rx] Allergies/Adverse Reactions: 3 Allergy/AdvReac Type Severity Reaction Status Date / Time bee venom protein (honey bee) AdvReac Swelling Verified 06/30/17 04:08 of Lip/Tongue/Throat potassium AdvReac Vomiting Verified 06/30/17 04:08 prednisone AdvReac Vomiting Verified 06/30/17 04:08 Date of admission: 06/30/17 09:20 Primary care physician: Nallely Hanna CNP Consults: 07/01/17 10:45 Consult to Dialysis [CONS] ONCE 07/01/17 15:41 Consult to Manager Application Development [CONS] Routine Reason for SW Consult: Bipap or cpap if qualifies, Does not have one at home , known history of DEE. 07/02/17 07:45 Consult to Dialysis [CONS] ONCE Discharging clinician: Lex Sharpe) Anticipated date of discharge: 07/02/17 - Patient Status Disposition: Home, Self-Care Condition: Good Functional capacity at discharge: independent ambulation Overall status at discharge: patient is progressing back to baseline - Discharge Instructions Instructions: Gabapentin (By mouth), Isosorbide Mononitrate (By mouth) Follow Up With: Nallely Hanna CNP [Primary Care Provider] - 07/07/17 2:00 pm () - Diet and Activity Activity: increase activity as tolerated, wear oxygen at all times (4L nasal cannula) Diet: low fat, low cholesterol, low salt diet, other (renal diet) Interval History: Patient reports doing well overnight, reports he tolerated the Bipap. Reviewe through bipap qualification test with respiratory therapist and patient had no desats overnight. Patient denies chest pain or pressure, shortness of breath, cough, or increased sputum. Denies fevers, chills, sweats, nausea, vomiting, abdominal pain, changes in urination or bowels, weakness, or loss of sensation. Updated PMH: CHF unspecified, COD, CAD, ESRD on dialysis, hld, htn, osteoporosis, PAD, DEE (no desats 07/02/17 overnight), previous heroin abuse. Will continue 4L nasal cannula continuous per patient's home oxygen. <[facility], [facility] ISSUE.> Hospital course: Mr. Castro is a 52 year old male with history of diastolic CHD, COPD, CAD, ESRD on dialysis, hld, htn, osteoporosis, PAD, DEE, previous heroin abuse, continuous home oxygen at 4L nasal cannula who presented to the ED on 06/30/17 with complaint of sudden onset dyspnea and was found by EMS to be cyanotic on arrival. Patient improved with Bipap after about 15-20 minuted. ABG revealed pH 7.31, pCO2 47 on Bipap. CXR revealed right sided pleural effusion. Patient underwent urgent dialysis and received 120mg lasix on arrival. BNP was 3539 and troponin 0.03. EKG revealed normal sinus rhythm and last echo was completed on 05/10/17 and 05/14/17 during last hospital stay. Patient did well overnight, but continued to have occassional desats when taking off continuous oxygen. Patient was continued on dialysis for an additional two more sessions with continued improvement of lower extremity swelling, and continue improvement of breathing and vitals remained stable on 4L continuous nasal cannula oxygen. Patient reported previous history of DEE so Bipap qualification study was ordered, patient did not qualify due to lack of desatting events. Patient to be discharged with increase of Imdur to 60mg qd and decrease of gabapentin to 600mg qd and additional 300mg qd after dialysis sessions. Patient was counseled extensively >10 minutes regarding smoking cessation, proper diet including fluid restriction of 1.5L per day and avoidance of salt in diet, and about new medications. Patient agrees and is to follow up with PCP in 3-5 days and Nephrology within the next two weeks. Patient also counseled and stressed the importance of compliance with diet, smoking cessation, and particularly dialysis sessions. Patient is high risk for readmission due to noncompliance. Time spent discussing smoking cessation with patient: 3 to 10 minutes - Time Spent with Patient Total time spent providing and/or coordinating discharge services: Greater than 30 minutes - Constitutional Vitals: Temp Pulse Resp BP Pulse Ox 98.2 F 68 14 143/88 98 07/02/17 12:40 07/02/17 12:40 07/02/17 12:40 07/02/17 12:40 07/02/17 12:40 General appearance: Present: cooperative, A&O X 3, no acute distress, obese, answers questions appropriately - Head Head exam: Present: atraumatic, normal inspection, normocephalic - Eye Eye exam: Present: EOMI, normal appearance - ENT ENT exam: Present: mucous membranes moist, normal exam, normal oropharynx - Neck Neck exam general surgery: Present: full ROM, normal inspection, supple, trachea midline. Absent: tenderness - Respiratory Respiratory exam: Present: decreased breath sounds (right lower lobe). Absent: rales, respiratory distress, rhonchi, wheezes, tachypnea - Cardiovascular Cardiovascular exam: Present: RRR, +S1, +S2. Absent: diastolic murmur, JVD, systolic murmur - GI/Abdominal GI/Abdominal exam: Present: normal bowel sounds, soft. Absent: distended, guarding, tenderness - Extremities Exam Extremities exam: Present: full ROM, normal capillary refill, normal inspection , pedal edema (minimal bilateral pitting lower extremity edema), warm, radial pulses palpable and symmetrical. Absent: tenderness - Neurological Exam Neurological exam: Present: alert, oriented X3, strengths equal and symetr throughout. Absent: facial droop, speech deficit - Psychiatric Psychiatric exam: Present: normal affect, normal mood - Skin Skin exam: Present: dry, intact, normal color, warm. Absent: rash <Lex Orellana - Last Filed: 07/03/17 18:31> Date of Encounter: 07/03/17 Date of admission: 06/30/17 09:20 Primary care physician: Nallely Hanna CNP Consults: 07/01/17 10:45 Consult to Dialysis [CONS] ONCE 07/01/17 15:41 Consult to Manager Application Development [CONS] Routine Reason for SW Consult: Bipap or cpap if qualifies, Does not have one at home , known history of DEE. 07/02/17 07:45 Consult to Dialysis [CONS] ONCE Hospital course: Mr. Castro is a 52 year old male - Time Spent with Patient Total time spent providing and/or coordinating discharge services: - Constitutional Vitals: Temp Pulse Resp BP Pulse Ox 98.2 F 68 14 143/88 98 07/02/17 12:40 07/02/17 12:40 07/02/17 12:40 07/02/17 12:40 07/02/17 12:40 - Attending Attestation I examined this patient and my medical decision-making was reviewed with the Resident Physician. I agree with the documented findings, disposition and treatment plan as described except to the extent set forth below. I have educated patient regarding low-sodium, fluid restricted diet and compliance with dialysis treatments. I have advised smoking cessation and provided counseling. Patient is back to baseline and will be discharged home with close follow-up with PCP.
[2017-07-03] MEDS ORDERED: Isosorbide MONOnitrate (24 HR) 30 MG TAB.ER.24H PO SCH (09:00)
== END 2017-07-02 17:07 | disposition home or self-care (01) | DRG 194 ==
LOC: EMEROO 04:03 → ICNU 04:03 → 2NNU 05:50 → SUATTDRO 09:20
PROVIDERS: ADMIT Pediatrics; ATTEND Internal Medicine

== ENCOUNTER 2017-07-30 04:11 | Inpatient (IN) ==
[2017-07-30 04:33] LABS: Basophils # 0.1 K/mcL (0.0-0.2); Basophils % 0.7 %; Eosinophils # 0.3 K/mcL (0.0-0.6); Hematocrit 37.4 % (37.5-50.1); Hemoglobin 12.2 g/dL (12.9-16.9); Immature Granulocytes % 1.3 % (0-4); Lymphocytes # 4.3 K/mcL (0.6-4.6); Lymphocytes % 38.6 %; Mean Corpuscular HGB Conc 32.6 g/dL (31.6-35.5); Mean Platelet Volume 9.1 fL (9.4-12.4); Monocytes # 0.8 K/mcL (0.0-1.3); Neutrophils # 5.5 K/mcL (1.6-8.9); Platelet Count 221 K/mcL (140-400); Segmented Neutrophils % 49.4 %
[2017-07-30 04:38] LABS: Prothrombin Time 10.2 Seconds (9.4-12.1)
[2017-07-30 04:41] LABS: Activated Partial Thrombo Time 31.2 Seconds (26.0-36.0)
[2017-07-30] MEDS ORDERED: Nitroglycerin 25 MG/250 ML INFUS..BTL IVC SCH (04:45)
[2017-07-30 04:48] LABS: Albumin 2.9 g/dL (3.5-5.0); Albumin/Globulin Ratio 0.8 (1.1-2.2); Bilirubin,Direct 0.2 mg/dL (0.0-0.5); Bilirubin,Indirect 0.2 mg/dL (0.0-1.2); Bilirubin,Total 0.4 mg/dL (0.2-1.2); Calcium 8.1 mg/dL (8.6-10.8); Globulin 3.6 g/dL (2.4-3.5); Potassium 3.6 mEq/L (3.5-4.5); Total Protein 6.5 g/dL (6.0-8.3)
--- NOTE | 2017-07-30 04:58 | Emergency Department Note ---
Disposition Clinical Impression: CHF (congestive heart failure), Hyponatremia, ESRD needing dialysis, Acute and chronic respiratory failure ([id number]), Elevated brain natriuretic peptide (BNP) level, Respiratory distress, Demand ischemia of myocardium Disposition: Admitted As Inpatient Condition: Fair Referrals: Nallely Hanna CNP [Primary Care Provider] - Forms: ED Satisfaction Letter Time of Disposition: 05:04 SOB HPI - General Chief Complaint: ED Shortness of Breath/Dyspnea Stated Complaint: ANNETTA Time Seen by Provider: 07/30/17 04:17 Source: EMS Mode of arrival: EMS Limitations: no limitations Nursing Notes Reviewed: Yes Vital Signs Reviewed: Yes - History of Present Illness Patient presents to the ED with shortness of breath. Patient has a history of CHF and was admitted and intubated last admission. Reports he is on 4 L of home oxygen and requires BiPAP frequently. Having more shortness breath and usual over the past 3 days. No chest pain. Conversationally dyspneic, only able to speak in 1-2 word sentences. - Related Data Home Medications Medication Instructions Recorded Confirmed Citalopram [CeleXA] 40 mg PO DAILY 10/02/15 06/30/17 Fluticasone/Salmeterol [Advair 1 puff IH BID 10/02/15 06/30/17 250-50 Diskus] Furosemide [Lasix] 40 mg PO BID 10/02/15 06/30/17 Lidocaine Patch [Lidoderm 5% patch] 1 patch TP DAILY 10/02/15 06/30/17 hydrOXYzine HCl [Hydroxyzine HCl] 25 mg PO TID 10/02/15 06/30/17 Ferrous Sulfate [Iron] 325 mg PO DAILY 10/04/16 06/30/17 Carvedilol [Coreg] 6.25 mg PO BID 11/03/16 06/30/17 Ergocalciferol (VITAMIN D2) 50,000 unit PO QWEEK 11/03/16 06/30/17 [Vitamin D2] Lisinopril [Zestril] 10 mg PO DAILY 11/03/16 06/30/17 Simvastatin [Zocor] 40 mg PO HS 11/03/16 06/30/17 Tizanidine HCl [Zanaflex] 4 mg PO TID 11/03/16 06/30/17 Ipratropium/Albuterol Sulfate 1 puff IH QID 11/19/16 06/30/17 [Combivent Respimat Inhal [place]] Albuterol Sulfate [Proair Hfa] 2 puff IH Q4H PRN 05/08/17 06/30/17 BuPROPion SR (12 HR) [Wellbutrin 150 mg PO BID 05/08/17 06/30/17 SR] Calcium Acetate [Phos-LO] 1,334 mg PO TIDWM 05/08/17 06/30/17 Mupirocin [Bactroban Oint] 1 appl TP BID 05/08/17 06/30/17 Ondansetron HCl [Zofran] 4 mg PO BID 05/08/17 06/30/17 Potassium Chloride [Klor-Con 10] 10 meq PO BID 05/08/17 06/30/17 Sevelamer [Renvela] 2,400 mg PO TIDWM 05/08/17 06/30/17 Tramadol HCl [Ultram] 50 mg PO TID PRN 05/08/17 06/30/17 Previous Rx's Medication Instructions Recorded Isosorbide MONOnitrate (24 HR) 30 mg PO DAILY #30 tab.er.24h 09/03/16 [Imdur] Aspirin 81 mg PO DAILY #30 tab.chew 11/24/16 Gabapentin [Neurontin] 600 mg PO TID #180 cap 05/20/17 Ipratropium/Albuterol Neb [Duoneb] 3 ml IH Q4HR #90 vial.neb 07/25/17 Ondansetron ODT [Zofran ODT] 4 mg SL Q6HR PRN #30 tab.rapdis 07/25/17 PrednisoLONE [Millipred] 30 mg PO DAILY #10 tablet 07/25/17 Allergies Allergy/AdvReac Type Severity Reaction Status Date / Time bee venom protein (honey bee) AdvReac Swelling Verified 06/30/17 04:08 of Lip/Tongue/Throat potassium AdvReac Vomiting Verified 06/30/17 04:08 prednisone AdvReac Vomiting Verified 06/30/17 04:08 All systems ED: reviewed and negative except as stated. Constitutional: Denies: fever Cardiovascular: Reports: dyspnea on exertion, orthopnea, edema, paroxysmal nocturnal dyspnea. Denies: chest pain Respiratory: Reports: dyspnea Gastrointestinal: Denies: vomiting Past Medical History - Past Medical History Attestation: Yes The following information was validated with the patient. Source: patient, old records reviewed Medical history: Reports: arthritis, CHF, COPD, coronary artery disease, dialysis, GERD, hyperlipidemia, hypertension, myocardial infarction, osteoporosis, peripheral artery disease, renal disease, other Surgical history: Reports: non-contributory, vascular surgery, other Psychiatric history: Reports: anxiety, bipolar, depression, other - Social History Smoking Status: Current every day smoker Smokeless Tobacco Status: Yes Alcohol use: Reports: none Drug use: Reports: marijuana Physical Exam - General Limitations: no limitations General appearance: lethargic, other (resp distress) - Eye Eye exam: Present: other (diffuse edema to eyelids ) - Respiratory Respiratory exam: Present: respiratory distress, other (rales throughout). Absent: normal lung sounds bilaterally - Cardiovascular Cardiovascular exam: Present: tachycardia, normal heart sounds - Abdominal Exam Abdominal exam: Present: soft, Non-Tender. Absent: tenderness, distention, guarding, rebound, rigidity - Extremities Exam Extremities exam: Present: normal capillary refill, pedal edema - Neurological Exam Neurological exam: Present: other (slow to respond, dyspneic) - Skin Skin exam: Present: warm, dry, intact, normal color Course Course Narrative: Patient presenting with a CHF exacerbation. Clinically volume overloaded. We will place on BiPAP and started nitro drip. - Reevaluation(s) Reevaluation #1: Patient will be admitted to the hospitalist service. Lasix also given. Aspirin ordered as well for elevated trop. Patient continues to deny CP and no acute ischemic EKG changes. Vital Signs Temperature 97.5 F L 07/30/17 04:11 Pulse Rate 105 07/30/17 04:11 Respiratory Rate 24 07/30/17 04:11 Blood Pressure 179/120 07/30/17 04:11 O2 Sat by Pulse Oximetry 87 07/30/17 04:11 Temperature 97.5 F L 07/30/17 04:11 Pulse Rate 86 07/30/17 04:28 Respiratory Rate 14 07/30/17 04:29 Blood Pressure 141/81 07/30/17 04:54 O2 Sat by Pulse Oximetry 95 07/30/17 04:29 Oxygen Delivery Oxygen Delivery Bipap Shortness of Breath/Dyspnea - Medical Records Medical records reviewed: Yes I reviewed the patient's medical records. - Lab Data Lab results reviewed: Yes I reviewed the patient's lab results. Result diagrams: 07/30/17 04:23 07/30/17 04:23 Lab Results 07/30/17 07/30/17 07/30/17 Range/Units 04:23 04:23 04:23 WBC 11.2 H D (4.3-11.1) K/mcL RBC 4.20 (4.19-5.50) M/mcL Hgb 12.2 L (12.9-16.9) g/dL Hct 37.4 L (37.5-50.1) % MCV 89.0 (83.0-100.0) fL MCH 29.0 (28.0-33.3) pg MCHC 32.6 (31.6-35.5) g/dL RDW 14.0 (11.5-14.5) % Plt Count 221 (140-400) K/mcL MPV 9.1 L (9.4-12.4) fL Immature Gran % 1.3 (0-4) % Seg Neutrophils % 49.4 % Lymphocytes % 38.6 % Monocytes % 7.0 % Eosinophils % 3.0 % Basophils % 0.7 % Neutrophils # 5.5 (1.6-8.9) K/mcL Lymphocytes # 4.3 (0.6-4.6) K/mcL Monocytes # 0.8 (0.0-1.3) K/mcL Eosinophils # 0.3 (0.0-0.6) K/mcL Basophils # 0.1 (0.0-0.2) K/mcL PT 10.2 (9.4-12.1) Seconds INR 1.0 APTT 31.2 (26.0-36.0) Seconds Sodium 121 L (136-145) mEq/L Potassium 3.6 (3.5-4.5) mEq/L Chloride 86 L (98-109) mEq/L Carbon Dioxide 26 (19-29) mEq/L BUN 20 (8-26) mg/dL Creatinine 3.30 H (0.72-1.25) mg/dL Est GFR ( Amer) 24 L (> 60) Est GFR (Non-Af Amer) 20 L (> 60) BUN/Creatinine Ratio 6 (6-26) Glucose 90 (70-99) mg/dL Calculated Osmolality 254 L (280-300) Lactic Acid (0.5-2.2) mmol/L Calcium 8.1 L (8.6-10.8) mg/dL Total Bilirubin 0.4 (0.2-1.2) mg/dL Direct Bilirubin 0.2 (0.0-0.5) mg/dL Indirect Bilirubin 0.2 (0.0-1.2) mg/dL AST 44 H (5-34) Units/L ALT 16 (0-55) Units/L Alkaline Phosphatase 141 H (38-126) Units/L Troponin I (0-0.03) ng/mL B-Natriuretic Peptide (0-100) pg/mL Serum Total Protein 6.5 (6.0-8.3) g/dL Albumin 2.9 L (3.5-5.0) g/dL Globulin 3.6 H (2.4-3.5) g/dL Albumin/Globulin Ratio 0.8 L (1.1-2.2) 07/30/17 07/30/17 07/30/17 Range/Units 04:23 04:23 04:23 WBC (4.3-11.1) K/mcL RBC (4.19-5.50) M/mcL Hgb (12.9-16.9) g/dL Hct (37.5-50.1) % MCV (83.0-100.0) fL MCH (28.0-33.3) pg MCHC (31.6-35.5) g/dL RDW (11.5-14.5) % Plt Count (140-400) K/mcL MPV (9.4-12.4) fL Immature Gran % (0-4) % Seg Neutrophils % % Lymphocytes % % Monocytes % % Eosinophils % % Basophils % % Neutrophils # (1.6-8.9) K/mcL Lymphocytes # (0.6-4.6) K/mcL Monocytes # (0.0-1.3) K/mcL Eosinophils # (0.0-0.6) K/mcL Basophils # (0.0-0.2) K/mcL PT (9.4-12.1) Seconds INR APTT (26.0-36.0) Seconds Sodium (136-145) mEq/L Potassium (3.5-4.5) mEq/L Chloride (98-109) mEq/L Carbon Dioxide (19-29) mEq/L BUN (8-26) mg/dL Creatinine (0.72-1.25) mg/dL Est GFR ( Amer) (> 60) Est GFR (Non-Af Amer) (> 60) BUN/Creatinine Ratio (6-26) Glucose (70-99) mg/dL Calculated Osmolality (280-300) Lactic Acid 1.4 (0.5-2.2) mmol/L Calcium (8.6-10.8) mg/dL Total Bilirubin (0.2-1.2) mg/dL Direct Bilirubin (0.0-0.5) mg/dL Indirect Bilirubin (0.0-1.2) mg/dL AST (5-34) Units/L ALT (0-55) Units/L Alkaline Phosphatase (38-126) Units/L Troponin I 0.07 H* (0-0.03) ng/mL B-Natriuretic Peptide 2210 H (0-100) pg/mL Serum Total Protein (6.0-8.3) g/dL Albumin (3.5-5.0) g/dL Globulin (2.4-3.5) g/dL Albumin/Globulin Ratio (1.1-2.2) - Radiology Data Radiology results reviewed: Yes I reviewed the patient's radiology results. Chest X-Ray 07/30/17 04:18 IMPRESSION: Progressive pulmonary edema with persistent right basilar pleuroparenchymal disease. D/ / Americo Crespo MD / Americo Crespo MD Interpreting Provider: Americo Crespo MD - EKG Data EKG attestation: Yes I reviewed and interpreted this EKG. EKG results narrative: Sinus rhythm with short CO interval, rate 89, CO interval 117, QRS 90, QTC 432, normal axis, no acute ischemic changes Critical Care Time Critical Care Time: Yes Total Critical Care Time: 30 Attestation: Critical care performed: Time is exclusive of separately billable procedures. Time includes: direct patient care, patient reassessment, coordination of patient care, interpretation of data (laboratory data, radiology data, and respiratory data), review of patient's medical records, medical consultation and documentation of patient care. Procedures included in critical care time: Procedures excluded from critical care time: Nasir - Nasir Situation: Demographics, MOA Background: Presenting Complaint, Relevant PMH, Meds, & Allergies Assessment: Vital Signs, Course and respsone to treatment, Exam Concerns, Patient/Family Expectation, Pertinant Lab Results, Outstanding Labs Recommendation: Barrier(s) to disposition, Recommendation based on pending studies, treatments, or consults Nasir Report Given to: Dr. Leonel Best Repor Time: 05:05 Attestation Statement - Attestation Attestation: I examined this patient and my medical decision-making was reviewed with the Resident Physician, Dr. Kunz. I agree with the documented findings, disposition and treatment plan as described except to the extent set forth below. Patient is a 52-year-old white male with a history of COPD, CHF, end-stage renal disease on hemodialysis Friday who presents to the emergency department today by EMS with a 3 day history of gradually worsening shortness of breath. Patient was seen here recently with similar presentation in respiratory distress and had been on BiPAP. Patient has been intubated in the past. He arrives on BiPAP by EMS and they report they also administered a breathing treatment in route. Patient is awake alert and oriented, can follow commands, and is speaking one to 2 word sentences due to conversational dyspnea. Patient denies any chest pain pressure or heaviness, no abdominal pain or back pain, no diaphoresis, no nausea vomiting. Patient denies any preceding fevers or chills, no production of cough. Patient denies missing any of his dialysis treatments. Patient with bilateral lower extremity pitting edema. Patient arrives in respiratory distress with BiPAP running, patient is tachypneic, tachycardic, hypertensive and hypoxic on room air. Patient is typically on 4 L nasal cannula oxygen at home. I agree with patient's physical exam findings on arrival as documented. Patient was placed on our BiPAP machine on arrival and mask needed adjustment to get a good seal. Port chest x-ray was obtained which shows progressive pulmonary edema compared to prior chest films. Patient administered aspirin and Lasix IV. Lab evaluation shows a significantly elevated BNP at over 2000. Troponin is also elevated but chronically so due to patient's renal disease. On reevaluation patient is doing much better on BiPAP. Vital signs are significantly improved patient verbalizes that he is breathing better. We will maintain patient on BiPAP at this time and admits to the hospitalist for acute exacerbation CHF. Patient was accepted by the hospitalist for further evaluation and management.
[2017-07-30] MEDS ORDERED: Furosemide 40 MG/4 ML VIAL IVP ONE (05:01)
[2017-07-30] MEDS ORDERED: Naloxone 0.4 MG/ML INJ IVP PRN (05:33)
[2017-07-30] MEDS ORDERED: Acetaminophen 325 MG TABLET PO PRN (05:33)
--- NOTE | 2017-07-30 05:40 | Internal Med History&Physical ---
Date of Encounter: 07/30/17 Time of Encounter: 05:00 Assessment and Plan (1) Elevated troponin Current visit: No Status: Acute Mild elevated troponin in the setting of CHF and end-stage renal disease, most likely demand ischemia. Patient denies chest pain. EKG shows no significant ST changes. - We will place patient on cardiac monitoring continuously - Check 3 sets of troponin (2) ESRD (end stage renal disease) on dialysis Current visit: No Status: Chronic Patient has signs of fluid overload. We will consider emergent dialysis today (3) Acute respiratory failure with hypoxia Current visit: No Status: Acute Due to CHF exacerbation. Patient was placed on BiPAP. Tolerated well. We will continue BiPAP (4) DVT prophylaxis Current visit: No Status: Acute Heparin subcutaneously (5) CHF exacerbation Current visit: No Status: Acute Patient has shortness of breath, chest x-ray shows pulmonary edema, elevated BNP - Pt is still making urine. We will give Lasix 40 mg IV twice a day. Lasix 40 mg once IV has been given in emergency room. - Continue nitroglycerin drip to decrease cardiac preload and postload. - Consult nephrology for emergent hemodialysis - Continue BiPAP supportive treatment Qualifiers: Congestive heart failure type: combined Qualified Code(s): I50.43 - Acute on chronic combined systolic (congestive) and diastolic (congestive) heart failure (6) Fluid overload Current visit: No Status: Acute Need hemodialysis to remove fluid. Fluid restriction and renal diet Qualifiers: Hypervolemia type: other Qualified Code(s): E87.79 - Other fluid overload (7) HTN (hypertension) Current visit: No Status: Acute Patient is on nitroglycerin drip for now. Closely monitor BP. May resume home medication after verification Qualifiers: Hypertension type: essential hypertension Qualified Code(s): I10 - Essential (primary) hypertension (8) CAD (coronary artery disease) Current visit: No Status: Acute No chest pain. EKG unremarkable. Will track 3 sets of troponin Qualifiers: Coronary Disease-Associated Artery/Lesion type: unspecified vessel or lesion type Associated angina: without angina Qualified Code(s): I25.10 - Atherosclerotic heart disease of [place] coronary artery without angina pectoris Internal Medicine - H&P: HPI Chief complaint: Shortness of breath Admitted From: Home Plans for Post Hospital Care: Home History of present illness: Mr. Castro is a 52 year old male with history of hypertension, CHF, CAD, end- stage renal disease on hemodialysis presented to ER for sudden onset shortness of breath since this morning. Patient said shortness of breath started from about 4 AM this morning. No chest pain. Denies nausea or vomiting. Patient has finished his Friday dialysis. He is due for today for hemodialysis. Patient said he drinked a lot of water recently. He denies taking many salt. Patient was sent to ER and was placed on nitroglycerin drip and BiPAP. Chest x- ray shows pulmonary edema. Patient was admitted as CHF exacerbation and fluid overload. Past Med Surg Social Fam HX - Past Medical History Medical history: arthritis, CHF, COPD, coronary artery disease, dialysis, GERD, hyperlipidemia, hypertension, myocardial infarction, osteoporosis, peripheral artery disease, renal disease, other Psychiatric history: anxiety, bipolar, depression, other - Past Surgical History Surgical History: non-contributory, vascular surgery, other - Social History Smoking Status: Current every day smoker Smokeless Tobacco Status: Yes Alcohol use: none Drug use: marijuana - Family History Mother Living Status: Hx Family Cardiac Disorders: Yes Father Living Status: Hx Family Cardiac Disorders: Yes Hx Family Cancer: Yes Internal Medicine - H&P: Meds Citalopram [CeleXA] 40 mg PO DAILY 10/02/15 [History] Fluticasone/Salmeterol [Advair 250-50 Diskus] 1 puff IH BID 10/02/15 [History] Furosemide [Lasix] 40 mg PO BID 10/02/15 [History] Lidocaine Patch [Lidoderm 5% patch] 1 patch TP DAILY 10/02/15 [History] hydrOXYzine HCl [Hydroxyzine HCl] 25 mg PO TID 10/02/15 [History] Isosorbide MONOnitrate (24 HR) [Imdur] 30 mg PO DAILY #30 tab.er.24h 09/03/16 [ Rx] Ferrous Sulfate [Iron] 325 mg PO DAILY 10/04/16 [History] Carvedilol [Coreg] 6.25 mg PO BID 11/03/16 [History] Ergocalciferol (VITAMIN D2) [Vitamin D2] 50,000 unit PO QWEEK 11/03/16 [History] Lisinopril [Zestril] 10 mg PO DAILY 11/03/16 [History] Simvastatin [Zocor] 40 mg PO HS 11/03/16 [History] Tizanidine HCl [Zanaflex] 4 mg PO TID 11/03/16 [History] Ipratropium/Albuterol Sulfate [Combivent Respimat Inhal [place]] 1 puff IH QID 04/28 [History] Aspirin 81 mg PO DAILY #30 tab.chew 11/24/16 [Rx] Albuterol Sulfate [Proair Hfa] 2 puff IH Q4H PRN 05/08/17 [History] BuPROPion SR (12 HR) [Wellbutrin SR] 150 mg PO BID 05/08/17 [History] Calcium Acetate [Phos-LO] 1,334 mg PO TIDWM 05/08/17 [History] Mupirocin [Bactroban Oint] 1 appl TP BID 05/08/17 [History] Ondansetron HCl [Zofran] 4 mg PO BID 05/08/17 [History] Potassium Chloride [Klor-Con 10] 10 meq PO BID 05/08/17 [History] Sevelamer [Renvela] 2,400 mg PO TIDWM 05/08/17 [History] Tramadol HCl [Ultram] 50 mg PO TID PRN 05/08/17 [History] Gabapentin [Neurontin] 600 mg PO TID #180 cap 05/20/17 [Rx] Ipratropium/Albuterol Neb [Duoneb] 3 ml IH Q4HR #90 vial.neb 07/25/17 [Rx] Ondansetron ODT [Zofran ODT] 4 mg SL Q6HR PRN #30 tab.rapdis 07/25/17 [Rx] PrednisoLONE [Millipred] 30 mg PO DAILY #10 tablet 07/25/17 [Rx] 3 Allergy/AdvReac Type Severity Reaction Status Date / Time bee venom protein (honey bee) AdvReac Swelling Verified 06/30/17 04:08 of Lip/Tongue/Throat potassium AdvReac Vomiting Verified 06/30/17 04:08 prednisone AdvReac Vomiting Verified 06/30/17 04:08 All Systems PM: A 10-system review of systems was performed and is negative for pertinent findings except as documented above in the HPI. - Constitutional Vitals: Temp Pulse Resp BP Pulse Ox 97.5 F L 82 24 143/86 95 07/30/17 04:11 07/30/17 05:31 07/30/17 05:31 07/30/17 05:31 07/30/17 05:31 General appearance: Present: mild distress, A&O X 3, answers questions appropriately - Head Head exam: Present: atraumatic, normocephalic - Eye Eye exam: Present: PERRL, conjuntiva pink, sclera anicteric Pupils: Present: PERRL Additional comments: Eye lids swelling bilaterally - Neck Neck exam general surgery: Present: supple, trachea midline. Absent: lymphadenopathy - Respiratory Respiratory exam: Present: CTAB, rhonchi (Diffuse rhonchi bilaterally). Absent : accessory muscle use, rales, wheezes - Cardiovascular Cardiovascular exam: Present: RRR, +S1, +S2. Absent: diastolic murmur, gallop, rubs, systolic murmur - GI/Abdominal GI/Abdominal exam: Present: normal bowel sounds, soft, no peritoneal signs. Absent: distended, tenderness - Extremities Exam Extremities exam: Present: warm, radial pulses palpable and symmetrical. Absent : calf tenderness, cyanotic, pedal edema - Neurological Exam Neurological exam: Present: CN II-XII intact, oriented X3, no focal deficits. Absent: pronater drift, facial droop, speech deficit - Skin Skin exam: Present: dry, intact Internal Med - H&P Results - Labs CBC & Chem 7: 07/30/17 04:23 07/30/17 04:23
[2017-07-30] MEDS: *HR* Heparin 5,000 UNIT/ML VIAL SQ SCH ×2 (06:35→17:09)
[2017-07-30] MEDS ORDERED: *HR* Heparin 10,000 UNIT/10 ML VIAL IV PRN (07:53)
[2017-07-30] MEDS ORDERED: 0.9 % Sodium Chloride 250 ML IVC PRN (07:53)
[2017-07-30] MEDS ORDERED: 0.9 % Sodium Chloride 1,000 ML PRIME SCH (08:00)
[2017-07-30] MEDS ORDERED: Furosemide 40 MG/4 ML VIAL IVP SCH ×2 (08:00→09:00)
[2017-07-30] MEDS ORDERED: *HR* LORazepam 2 MG/ML VIAL IVP PRN ×3 (11:15→11:20)
[2017-07-30 11:50] LABS: Hepatitis B Surface Antigen Nonreactive (Nonreactive)
[2017-07-30 11:56] LABS: Hepatitis B Surface Antibody 94.31 mIU/mL
--- NOTE | 2017-07-30 12:29 | Nephrology Consult Note ---
Date of Encounter: 07/30/17 Time of Encounter: 10:00 Assessment and Plan (1) Acute and chronic respiratory failure ([id number]) Current Visit: Yes Status: Acute Qualifiers: (2) ESRD needing dialysis Current Visit: Yes Status: Acute Will continue HD today with aggressive fluid removal gaol of 4-5kg s tolerated Plan to have UF tomorrow as well for more fluid removal Counselled patient on adhering to his fluids and sodium restrictions (3) Hyponatremia Current Visit: Yes Status: Acute History of Present Illness - Reason for Consult Consult date: 07/30/17 end stage renal disease Requesting physician: Andreina Castaneda - History of Present Illness 52 yo male with PMH of ESRD on HD with long history of non-compliance admitted for progressive SOB requiring biPAP. Last treatment on friday and has been drinking excessive fluids. Pt seen and examined on HD still on biPAP but breathing a little better. Past Med Surg Social Fam HX - Past Medical History Medical history: arthritis, CHF, COPD, coronary artery disease, dialysis, GERD, hyperlipidemia, hypertension, myocardial infarction, osteoporosis, peripheral artery disease, renal disease, other Psychiatric history: anxiety, bipolar, depression, other - Past Surgical History Surgical History: non-contributory, vascular surgery, other - Social History Smoking Status: Current every day smoker Packs per day: 0.5 Smokeless Tobacco Status: Yes Alcohol use: none Drug use: marijuana - Family History Mother Living Status: Hx Family Cardiac Disorders: Yes Father Living Status: Hx Family Cardiac Disorders: Yes Hx Family Cancer: Yes Medications and Allergies Citalopram [CeleXA] 40 mg PO DAILY 10/02/15 [History] Fluticasone/Salmeterol [Advair 250-50 Diskus] 1 puff IH BID 10/02/15 [History] Furosemide [Lasix] 40 mg PO BID 10/02/15 [History] Lidocaine Patch [Lidoderm 5% patch] 1 patch TP DAILY 10/02/15 [History] hydrOXYzine HCl [Hydroxyzine HCl] 25 mg PO TID 10/02/15 [History] Isosorbide MONOnitrate (24 HR) [Imdur] 30 mg PO DAILY #30 tab.er.24h 09/03/16 [ Rx] Ferrous Sulfate [Iron] 325 mg PO DAILY 10/04/16 [History] Ergocalciferol (VITAMIN D2) [Vitamin D2] 50,000 unit PO QWEEK 11/03/16 [History] Lisinopril [Zestril] 10 mg PO DAILY 11/03/16 [History] Simvastatin [Zocor] 40 mg PO HS 11/03/16 [History] Tizanidine HCl [Zanaflex] 4 mg PO TID 11/03/16 [History] Ipratropium/Albuterol Sulfate [Combivent Respimat Inhal [place]] 1 puff IH QID 04/28 [History] Aspirin 81 mg PO DAILY #30 tab.chew 11/24/16 [Rx] Albuterol Sulfate [Proair Hfa] 2 puff IH Q4H PRN 05/08/17 [History] BuPROPion SR (12 HR) [Wellbutrin SR] 150 mg PO BID 05/08/17 [History] Calcium Acetate [Phos-LO] 1,334 mg PO TIDWM 05/08/17 [History] Mupirocin [Bactroban Oint] 1 appl TP BID 05/08/17 [History] Ondansetron HCl [Zofran] 4 mg PO BID 05/08/17 [History] Sevelamer [Renvela] 2,400 mg PO TIDWM 05/08/17 [History] Tramadol HCl [Ultram] 50 mg PO TID PRN 05/08/17 [History] Ipratropium/Albuterol Neb [Duoneb] 3 ml IH Q4HR #90 vial.neb 07/25/17 [Rx] PrednisoLONE [Millipred] 30 mg PO DAILY #10 tablet 07/25/17 [Rx] Carvedilol 12.5 mg PO BID 07/30/17 [History] Gabapentin [Neurontin] 800 mg PO QID PRN 07/30/17 [History] Varenicline Tartrate [Chantix] 1 tab PO AD 07/30/17 [History] 3 Allergy/AdvReac Type Severity Reaction Status Date / Time bee venom protein (honey bee) AdvReac Swelling Verified 06/30/17 04:08 of Lip/Tongue/Throat potassium AdvReac Vomiting Verified 06/30/17 04:08 prednisone AdvReac Vomiting Verified 06/30/17 04:08 Review of Systems All Systems: reviewed and no additional remarkable complaints except as stated ( 10 systems reviewed and noted in HPI) Exam - Vital Signs Vital signs: Initial Vital Signs Temp Pulse Resp BP Pulse Ox 97.5 F L 105 24 179/120 87 07/30/17 04:11 07/30/17 04:11 07/30/17 04:11 07/30/17 04:11 07/30/17 04:11 Vital Signs - Last 8 Hours Temp Pulse Resp BP Pulse Ox 07/30/17 11:40 170/107 07/30/17 11:25 172/89 07/30/17 11:10 166/94 07/30/17 10:55 158/100 07/30/17 10:40 162/95 07/30/17 10:25 178/102 07/30/17 10:10 185/102 07/30/17 09:55 195/112 07/30/17 09:40 172/102 07/30/17 09:25 169/89 07/30/17 09:10 171/91 07/30/17 08:56 99 07/30/17 08:55 141/83 07/30/17 08:40 170/98 07/30/17 08:25 97 F L 18 160/79 07/30/17 06:59 96.7 F L 77 17 158/80 99 07/30/17 06:10 19 95 07/30/17 05:59 24 147/83 Intake and Output 07/29/17 07/30/17 07/30/17 23:59 07:59 15:59 Intake Total 600 / 600 Output Total 0 / 0 Balance 600 / 600 Intake: Oral 0 / 0 Intake, Rinseback and Flushes 600 / 600 Output: Urine 0 / 0 Other: Hemodialysis Net Fluid Removed 4289 (mL) Results - Lab Results 07/30/17 04:23 07/30/17 04:23 Most recent lab results Calcium 8.1 mg/dL (8.6-10.8) L 07/30/17 04:23 Consult Discharge Plan - Plan Referrals: Nallely Hanna, LADLE POURER [Primary Care Provider] -
[2017-07-30] MEDS ORDERED: 0.9 % Sodium Chloride 2,000 ML ONE (13:01)
--- NOTE | 2017-07-30 14:57 | Event Note ---
Date of Encounter: 07/30/17 Time of Encounter: 11:40 Patient seen in dialysis today. On CPAP. Getting dialyzed. He says that he is feeling somewhat better. Denies any chest pain. Fluid restriction. Volume management with hemodialysis. We will resume home medications. Nephrology consult appreciated.
[2017-07-30] MEDS ORDERED: traMADol 50 MG TABLET PO PRN ×2 (14:58→15:41)
[2017-07-30] MEDS ORDERED: Ipratropium/Albuterol Neb 3 ML IH PRN (15:40)
[2017-07-30] MEDS: hydrOXYzine pamoate 25 MG CAPSULE PO SCH ×2 (15:44→21:16)
[2017-07-30] MEDS: tiZANidine 4 MG TABLET PO SCH ×2 (15:44→21:17)
[2017-07-30] MEDS ORDERED: Ipratropium/Albuterol Neb 3 ML IH SCH ×2 (16:00→17:00)
[2017-07-30] MEDS: Calcium Acetate 667 MG CAPSULE PO SCH (17:09)
[2017-07-30 20:18] LABS: Bilirubin,Urine Negative (Negative); Blood,Urine Small (Negative); Clarity,Urine Clear (Clear); Color,Urine Yellow (Yellow); Glucose,Urine (UA) Normal (Normal); Ketones,Urine Negative (Negative); Leukocyte Esterase,Urine Negative (Negative); Nitrite,Urine Negative (Negative); PH,Urine 7.5 pH Units (5.0-8.0); Protein,Urine >=300 mg/dL (Neg-Trace); Specific Gravity,Urine 1.015 (1.010-1.025); Urobilinogen,Urine Normal (Normal)
[2017-07-30 20:31] LABS: Squamous Epithelial Cell,Urine Few per lpf (None-Few)
[2017-07-30 20:32] LABS: Amorphous Sediment,Urine Few (Few)
[2017-07-30 20:33] LABS: RBC,Urine 0-3 per hpf (0-3); WBC,Urine 0-3 per hpf (0-3)
[2017-07-30] MEDS ORDERED: Budesonide/Formoterol 80/4.5 MDI IH SCH (21:00)
[2017-07-30] MEDS: Furosemide 40 MG TABLET PO SCH (21:17)
[2017-07-30] MEDS: Ondansetron ODT 4 MG TAB.RAPDIS PO SCH (21:17)
[2017-07-30] MEDS: BuPROPion SR (12 HR) 150 MG TABLET PO SCH (21:17)
[2017-07-31 05:18] LABS: Albumin 2.5 g/dL (3.5-5.0); Phosphorous 3.3 mg/dL (2.3-4.7); Potassium 3.8 mEq/L (3.5-4.5)
[2017-07-31] MEDS: *HR* Heparin 5,000 UNIT/ML VIAL SQ SCH (06:23)
[2017-07-31] MEDS ORDERED: *HR* Heparin 10,000 UNIT/10 ML VIAL IV PRN (07:17)
[2017-07-31] MEDS ORDERED: 0.9 % Sodium Chloride 250 ML IVC PRN (07:17)
[2017-07-31] MEDS ORDERED: 0.9 % Sodium Chloride 1,000 ML PRIME SCH (07:30)
[2017-07-31] MEDS: BuPROPion SR (12 HR) 150 MG TABLET PO SCH (08:15)
[2017-07-31] MEDS: tiZANidine 4 MG TABLET PO SCH (08:15)
[2017-07-31] MEDS: hydrOXYzine pamoate 25 MG CAPSULE PO SCH (08:16)
[2017-07-31] MEDS: Furosemide 40 MG TABLET PO SCH (08:16)
[2017-07-31] MEDS: Ondansetron ODT 4 MG TAB.RAPDIS PO SCH (08:16)
[2017-07-31] MEDS: Calcium Acetate 667 MG CAPSULE PO SCH ×2 (08:16→11:42)
[2017-07-31] MEDS ORDERED: Folic Acid 1 MG TABLET PO SCH (09:00)
[2017-07-31] MEDS ORDERED: Isosorbide MONOnitrate (24 HR) 30 MG TAB.ER.24H PO SCH (09:00)
[2017-07-31] MEDS ORDERED: Vitamin B Complex/Vit C/Vit E 1 EACH TABLET PO SCH (09:00)
[2017-07-31] MEDS ORDERED: Aspirin 81 MG TAB.CHEW PO SCH (09:00)
[2017-07-31] MEDS ORDERED: Thiamine (B-1) 100 MG TABLET PO SCH (09:00)
[2017-07-31] MEDS ORDERED: Budesonide/Formoterol 80/4.5 MDI IH SCH (10:00)
--- NOTE | 2017-07-31 10:50 | Nephrology Progress Note ---
Date of Encounter: 07/31/17 Time of Encounter: 10:48 - Assessment and Plan (1) ESRD needing dialysis Current Visit: Yes Status: Acute Ultrafiltration today-4 kilos removed Plan for HD tomorrow Continue renal diet and fluid removal Avoid nephrotoxins if possible (2) Acute and chronic respiratory failure ([id number]) Current Visit: Yes Status: Acute per primary team Fluid removal during dialysis will help Qualifiers: Respiratory failure complication: unspecified whether with hypoxia or hypercapnia Qualified Code(s): J96.20 - Acute and chronic respiratory failure , unspecified whether with hypoxia or hypercapnia (3) Hyponatremia Current Visit: Yes Status: Acute Na+ 131-improving Subjective Principal diagnosis: ESRD on dialysis, acute and chronic respiratory failure Interval history: Patient seen while in dialysis; sleeping sounding. Treatment almost done, 4 kilos removed. Objective - Vital Signs Vital signs: Vital Signs Temp Pulse Resp BP Pulse Ox 07/31/17 10:30 113/72 07/31/17 10:15 96/61 07/31/17 10:00 96/60 07/31/17 09:45 98/52 07/31/17 09:30 105/60 07/31/17 09:15 110/60 07/31/17 09:00 114/64 07/31/17 08:45 97.6 F 18 128/89 07/31/17 06:43 96.8 F L 73 18 155/71 100 07/31/17 04:30 97.9 F 72 18 138/68 100 07/30/17 23:09 98.4 F 73 18 127/63 100 07/30/17 19:40 16 96 07/30/17 19:00 97.9 F 89 18 146/70 100 07/30/17 16:23 98.2 F 101 18 167/68 100 Intake and Output 07/30/17 07/31/17 07/31/17 23:59 07:59 15:59 Intake Total 745 / 745 100 / 100 600 / 600 Output Total 350 / 350 300 / 300 Balance 395 / 395 -200 / -200 600 / 600 Intake: Oral 745 / 745 100 / 100 0 / 0 Intake, Rinseback and Flushes 600 / 600 Output: Urine 350 / 350 300 / 300 Other: Meal HS SNACK-ICE CREAM Percent of Meal Consumed 100% Stool Size Moderate Stool Consistency loose Stool Characteristics Normal for Patient [place] Se[place] Stool Color Brown # Voids 1 Weight 84.3 kg Hemodialysis Net Fluid Removed 4066 (mL) Patient Weight 07/31/17 23:59 Weight 84.3 kg - General Appearance General appearance: Present: obese EENT: Present: ATNC Neck: Present: supple Respiratory: Present: clear Cardiology: Present: edema, normal S1, normal S2 Dialysis Vascular Access: Venous Catheter Gastrointestinal: Present: no guarding Integumentary: Present: warm and dry - Lab 07/30/17 04:23 07/31/17 04:43 Most recent lab results Calcium 8.0 mg/dL (8.6-10.8) L 07/31/17 04:43 Phosphorus 3.3 mg/dL (2.3-4.7) 07/31/17 04:43 Consult Discharge Plan - Plan Referrals: Nallely Hanna, ACCOUNTANT CONTROLLER [Primary Care Provider] -
[2017-07-31] MEDS ORDERED: Ondansetron ODT 4 MG TAB.RAPDIS PO PRN (11:02)
[2017-07-31 11:40] VITALS: BP 164/86
--- NOTE | 2017-07-31 11:42 | Discharge Summary ---
Date of Encounter: 07/31/17 Time of Encounter: 08:00 - Discharge Diagnosis (1) Acute respiratory failure with hypoxia Priority: Primary Status: Acute (2) CHF exacerbation Priority: Secondary Status: Acute Qualifiers: Congestive heart failure type: combined Qualified Code(s): I50.43 - Acute on chronic combined systolic (congestive) and diastolic (congestive) heart failure (3) CAD (coronary artery disease) Priority: Secondary Status: Acute Qualifiers: Coronary Disease-Associated Artery/Lesion type: unspecified vessel or lesion type Associated angina: without angina Qualified Code(s): I25.10 - Atherosclerotic heart disease of [place] coronary artery without angina pectoris (4) Chronic respiratory failure with hypoxia Priority: Secondary Status: Chronic (5) Elevated troponin Priority: Secondary Status: Chronic (6) ESRD (end stage renal disease) on dialysis Priority: Secondary Status: Chronic (7) Fluid overload Priority: Secondary Status: Acute Qualifiers: Hypervolemia type: other Qualified Code(s): E87.79 - Other fluid overload - Discharge Medications Prescriptions: Gabapentin [Neurontin] 600 mg PO QID #90 tablet Home Medications: Citalopram [CeleXA] 40 mg PO DAILY 10/02/15 [History] Fluticasone/Salmeterol [Advair 250-50 Diskus] 1 puff IH BID 10/02/15 [History] Furosemide [Lasix] 40 mg PO BID 10/02/15 [History] Lidocaine Patch [Lidoderm 5% patch] 1 patch TP DAILY 10/02/15 [History] hydrOXYzine HCl [Hydroxyzine HCl] 25 mg PO TID 10/02/15 [History] Isosorbide MONOnitrate (24 HR) [Imdur] 30 mg PO DAILY #30 tab.er.24h 09/03/16 [ Rx] Ferrous Sulfate [Iron] 325 mg PO DAILY 10/04/16 [History] Ergocalciferol (VITAMIN D2) [Vitamin D2] 50,000 unit PO QWEEK 11/03/16 [History] Lisinopril [Zestril] 10 mg PO DAILY 11/03/16 [History] Simvastatin [Zocor] 40 mg PO HS 11/03/16 [History] Tizanidine HCl [Zanaflex] 4 mg PO TID 11/03/16 [History] Ipratropium/Albuterol Sulfate [Combivent Respimat Inhal [place]] 1 puff IH QID 04/28 [History] Aspirin 81 mg PO DAILY #30 tab.chew 11/24/16 [Rx] Albuterol Sulfate [Proair Hfa] 2 puff IH Q4H PRN 05/08/17 [History] BuPROPion SR (12 HR) [Wellbutrin SR] 150 mg PO BID 05/08/17 [History] Calcium Acetate [Phos-LO] 1,334 mg PO TIDWM 05/08/17 [History] Mupirocin [Bactroban Oint] 1 appl TP BID 05/08/17 [History] Ondansetron HCl [Zofran] 4 mg PO BID 05/08/17 [History] Sevelamer [Renvela] 2,400 mg PO TIDWM 05/08/17 [History] Tramadol HCl [Ultram] 50 mg PO TID PRN 05/08/17 [History] Ipratropium/Albuterol Neb [Duoneb] 3 ml IH Q4HR #90 vial.neb 07/25/17 [Rx] PrednisoLONE [Millipred] 30 mg PO DAILY #10 tablet 07/25/17 [Rx] Carvedilol 12.5 mg PO BID 07/30/17 [History] Varenicline Tartrate [Chantix] 1 tab PO AD 07/30/17 [History] Gabapentin [Neurontin] 600 mg PO QID #90 tablet 07/31/17 [Rx] Allergies/Adverse Reactions: 3 Allergy/AdvReac Type Severity Reaction Status Date / Time bee venom protein (honey bee) AdvReac Swelling Verified 06/30/17 04:08 of Lip/Tongue/Throat potassium AdvReac Vomiting Verified 06/30/17 04:08 prednisone AdvReac Vomiting Verified 06/30/17 04:08 Date of admission: 07/30/17 14:58 Primary care physician: Nallely Hanna CNP Consults: 07/31/17 07:30 Consult to Dialysis [CONS] ONCE Discharging clinician: Kiko Joe Anticipated date of discharge: 07/31/17 - Patient Status Disposition: Home, Self-Care Condition: Fair Functional capacity at discharge: independent ambulation Overall status at discharge: patient is progressing back to baseline - Discharge Instructions Instructions: Heart Failure (DC), Acute Respiratory Distress Syndrome (DC) Follow Up With: Nallely Hanna CNP [Primary Care Provider] - 08/07/17 1:30 pm (in 1 week) - Diet and Activity Activity: wear oxygen at all times Diet: low fat, low cholesterol, low salt diet, other (fluid restriction to 1.2L/ day) Hospital course: Mr. Castro is a 52 year old male Patient with history of end-stage renal disease on hemodialysis, congestive heart failure was hospitalized here with acute congestive heart failure and volume overload. Most likely due to compliance with fluid restriction. Initially, patient required BiPAP and was treated with acute on chronic hypoxic respiratory failure. He was then taken for hemodialysis and since then his symptoms have improved. He has had about 9 L of fluid removed through hemodialysis. He is now doing much better and is clinically stable for discharge. He will be dialyzed tomorrow according to his usual schedule. Patient also is on high-dose of gabapentin and I do recommend decreasing his dosage according to his poor renal function. To that end, I am tapering his dose down to 600 mg by mouth twice a day. This can be further decrease in conjunction with his primary care provider. Patient has been advised multiple times to stay compliant with his fluid restriction and continue to follow with his hemodialysis to prevent further episodes of volume overload and congestive heart failure. He does express understanding. - Time Spent with Patient Total time spent providing and/or coordinating discharge services: Greater than 30 minutes (35 min) - Constitutional Vitals: Temp Pulse Resp BP Pulse Ox 97 F L 73 17 110/72 100 07/31/17 11:10 07/31/17 06:43 07/31/17 11:10 07/31/17 11:10 07/31/17 06:43 General appearance: Present: cooperative, A&O X 3, answers questions appropriately - Eye Eye exam: Present: EOMI, periorbital swelling (bilateral), PERRL, conjuntiva pink, sclera anicteric - Neck Neck exam general surgery: Present: supple, trachea midline. Absent: lymphadenopathy - Respiratory Respiratory exam: Absent: accessory muscle use, rales, rhonchi, wheezes Additional comments: basal crackles - Cardiovascular Cardiovascular exam: Present: RRR, +S1, +S2. Absent: diastolic murmur, gallop, rubs, systolic murmur - GI/Abdominal GI/Abdominal exam: Present: normal bowel sounds, soft, no peritoneal signs. Absent: distended, tenderness - Extremities Exam Extremities exam: Present: pedal edema, warm, radial pulses palpable and symmetrical. Absent: calf tenderness, cyanotic
[2017-07-31] MEDS ORDERED: 0.9 % Sodium Chloride 1,000 ML ONE (11:51)
[2017-07-31] MEDS ORDERED: Furosemide 40 MG TABLET PO SCH (17:00)
== END 2017-07-31 12:57 | disposition home or self-care (01) | DRG 194 ==
LOC: EMEROO 04:11 → 2ANU 04:11
PROVIDERS: ADMIT Internal Medicine; ATTEND Internal Medicine

== ENCOUNTER 2017-08-11 03:40 | Inpatient (IN) ==
[2017-08-11] MEDS ORDERED: Ipratropium/Albuterol Neb 3 ML IH ONE (03:47)
[2017-08-11] MEDS ORDERED: methylPREDNISolone 125 MG/2 ML VIAL IVP ONE (03:47)
[2017-08-11 04:09] LABS: Basophils # 0.1 K/mcL (0.0-0.2); Basophils % 0.7 %; Eosinophils # 0.3 K/mcL (0.0-0.6); Eosinophils % 3.4 %; Hematocrit 33.3 % (37.5-50.1); Hemoglobin 10.7 g/dL (12.9-16.9); Immature Granulocytes % 0.2 % (0-4); Immature Platelets 3.8 % (1.1-6.1); Lymphocytes # 2.9 K/mcL (0.6-4.6); Lymphocytes % 34.9 %; Mean Corpuscular HGB Conc 32.1 g/dL (31.6-35.5); Mean Corpuscular Volume 90.2 fL (83.0-100.0); Mean Platelet Volume 9.7 fL (9.4-12.4); Monocytes # 0.6 K/mcL (0.0-1.3); Monocytes % 6.8 %; Neutrophils # 4.5 K/mcL (1.6-8.9); Platelet Count 246 K/mcL (140-400); Red Blood Count 3.69 M/mcL (4.19-5.50); Red Cell Distribution Width 13.7 % (11.5-14.5)
--- NOTE | 2017-08-11 04:14 | Emergency Department Note ---
Disposition Clinical Impression: Acute and chronic respiratory failure with hypoxia, End stage kidney disease, Elevated troponin CHF exacerbation Qualifiers: Congestive heart failure type: unspecified congestive heart failure type Qualified Code(s): I50.9 - Heart failure, unspecified Pulmonary edema Qualifiers: Chronicity: chronic Qualified Code(s): J81.1 - Chronic pulmonary edema Disposition: Admitted As Inpatient Condition: Fair General Adult HPI - General Chief complaint: ED Shortness of Breath/Dyspnea Stated complaint: ANNETTA Time Seen by Provider: 08/11/17 03:47 Source: patient, EMS Limitations: no limitations Nursing Notes Reviewed: Yes Vital Signs Reviewed: Yes - History of Present Illness HPI Narrative: 52-year-old male who called EMS due to dyspnea upon awakening. He has a past medical history of COPD and CHF. He has a temporary dialysis catheter and does dialysis Friday and Friday. He denies missing any of his dialysis. He does admit to not necessarily being diet compliant. He is had numerous admissions in the past for COPD and fluid overload. EMS placed him on BiPAP which improved his oxygenation and work of breathing. He has been seen by Dr. Burrows. Pain Scale: 0 Improves with: other (BiPAP) Worsens with: nothing Associated symptoms: Reports: denies other symptoms Treatments Prior to Arrival: none - Related Data Home Medications Medication Instructions Recorded Confirmed Citalopram [CeleXA] 40 mg PO DAILY 10/02/15 07/30/17 Fluticasone/Salmeterol [Advair 1 puff IH BID 10/02/15 07/30/17 250-50 Diskus] Furosemide [Lasix] 40 mg PO BID 10/02/15 07/30/17 Lidocaine Patch [Lidoderm 5% patch] 1 patch TP DAILY 10/02/15 07/30/17 hydrOXYzine HCl [Hydroxyzine HCl] 25 mg PO TID 10/02/15 07/30/17 Ferrous Sulfate [Iron] 325 mg PO DAILY 10/04/16 07/30/17 Ergocalciferol (VITAMIN D2) 50,000 unit PO QWEEK 11/03/16 07/30/17 [Vitamin D2] Lisinopril [Zestril] 10 mg PO DAILY 11/03/16 07/30/17 Simvastatin [Zocor] 40 mg PO HS 11/03/16 07/30/17 Tizanidine HCl [Zanaflex] 4 mg PO TID 11/03/16 07/30/17 Ipratropium/Albuterol Sulfate 1 puff IH QID 11/19/16 07/30/17 [Combivent Respimat Inhal [place]] Albuterol Sulfate [Proair Hfa] 2 puff IH Q4H PRN 05/08/17 07/30/17 BuPROPion SR (12 HR) [Wellbutrin 150 mg PO BID 05/08/17 07/30/17 SR] Calcium Acetate [Phos-LO] 1,334 mg PO TIDWM 05/08/17 07/30/17 Mupirocin [Bactroban Oint] 1 appl TP BID 05/08/17 07/30/17 Ondansetron HCl [Zofran] 4 mg PO BID 05/08/17 07/30/17 Sevelamer [Renvela] 2,400 mg PO TIDWM 05/08/17 07/30/17 Tramadol HCl [Ultram] 50 mg PO TID PRN 05/08/17 07/30/17 Carvedilol 12.5 mg PO BID 07/30/17 07/30/17 Varenicline Tartrate [Chantix] 1 tab PO AD 07/30/17 07/30/17 Previous Rx's Medication Instructions Recorded Isosorbide MONOnitrate (24 HR) 30 mg PO DAILY #30 tab.er.24h 09/03/16 [Imdur] Aspirin 81 mg PO DAILY #30 tab.chew 11/24/16 Ipratropium/Albuterol Neb [Duoneb] 3 ml IH Q4HR #90 vial.neb 07/25/17 PrednisoLONE [Millipred] 30 mg PO DAILY #10 tablet 07/25/17 Gabapentin [Neurontin] 600 mg PO QID #90 tablet 07/31/17 Allergies Allergy/AdvReac Type Severity Reaction Status Date / Time bee venom protein (honey bee) AdvReac Swelling Verified 06/30/17 04:08 of Lip/Tongue/Throat potassium AdvReac Vomiting Verified 06/30/17 04:08 prednisone AdvReac Vomiting Verified 06/30/17 04:08 All systems ED: reviewed and negative except as stated. Constitutional: Denies: fever ENT ED: Denies: throat pain Cardiovascular: Denies: chest pain Respiratory: Reports: cough, dyspnea Gastrointestinal: Denies: abdominal pain Integumentary: Denies: rash Endocrine: Reports: fatigue Past Medical History - Past Medical History Medical history: Reports: arthritis, CHF, COPD, coronary artery disease, dialysis, GERD, hyperlipidemia, hypertension, myocardial infarction, osteoporosis, peripheral artery disease, renal disease, other Surgical history: Reports: non-contributory, vascular surgery, other Psychiatric history: Reports: anxiety, bipolar, depression, other - Social History Smoking Status: Current every day smoker Smokeless Tobacco Status: Yes Alcohol use: Reports: none Drug use: Reports: marijuana Physical Exam - General Limitations: other (Dyspnea) General appearance: alert - Head Head exam: atraumatic - Eye Eye exam: Present: normal appearance - ENT ENT exam: normal exam, normal oropharynx - Neck Neck exam: Present: normal inspection - Chest Chest inspection: Present: normal inspection - Respiratory Respiratory exam: Present: other (Course rhonchi throughout.) - Cardiovascular Cardiovascular exam: Present: regular rate, normal rhythm - Abdominal Exam Abdominal exam: Present: soft, Non-Tender - Extremities Exam Extremities exam: Present: pedal edema (2+ bilateral edema) - Neurological Exam Neurological exam: Present: alert, oriented X3 - Psychiatric Psychiatric exam: Present: normal affect, normal mood - Skin Skin exam: Present: warm, dry Course Course Narrative: Clinically with the coarse lung sounds in the hypoxia in the history of CHF he is likely having a CHF exacerbation. I will start him on a nitroglycerin drip due to his hypertension along with CHF. We will also give him Lasix as he still does make urine. He feels substantial relief been on the BiPAP. He is also on a nitroglycerin drip and did receive Lasix. He will be admitted for CHF exacerbation and likely need for dialysis. Accepted by Dr Cohen. Spoke with Dr Richter agreed to see the patient and arrange dialysis. Vital Signs Temperature 97.6 F 08/11/17 03:42 Pulse Rate 98 08/11/17 03:42 Respiratory Rate 24 08/11/17 03:42 Blood Pressure 182/121 08/11/17 03:42 O2 Sat by Pulse Oximetry 94 08/11/17 03:42 Temperature 97.6 F 08/11/17 03:42 Pulse Rate 85 08/11/17 05:00 Respiratory Rate 16 08/11/17 06:08 Blood Pressure 169/98 08/11/17 06:08 O2 Sat by Pulse Oximetry 97 08/11/17 05:00 Oxygen Delivery Oxygen Delivery Room Air Medical Decision Making - Medical Records Medical records reviewed: Yes I reviewed the patient's medical records. - Lab Data Lab results reviewed: Yes I reviewed the patient's lab results. Result diagrams: 08/11/17 03:57 08/11/17 03:57 Lab Results 08/11/17 08/11/17 08/11/17 Range/Units 03:54 03:57 03:57 WBC 8.3 (4.3-11.1) K/mcL RBC 3.69 L (4.19-5.50) M/mcL Hgb 10.7 L (12.9-16.9) g/dL Hct 33.3 L (37.5-50.1) % MCV 90.2 (83.0-100.0) fL MCH 29.0 (28.0-33.3) pg MCHC 32.1 (31.6-35.5) g/dL RDW 13.7 (11.5-14.5) % Plt Count 246 (140-400) K/mcL MPV 9.7 (9.4-12.4) fL Immature Gran % 0.2 (0-4) % Seg Neutrophils % 54.0 % Lymphocytes % 34.9 % Monocytes % 6.8 % Eosinophils % 3.4 % Basophils % 0.7 % Neutrophils # 4.5 (1.6-8.9) K/mcL Lymphocytes # 2.9 (0.6-4.6) K/mcL Monocytes # 0.6 (0.0-1.3) K/mcL Eosinophils # 0.3 (0.0-0.6) K/mcL Basophils # 0.1 (0.0-0.2) K/mcL Immature Plt Fraction 3.8 (1.1-6.1) % VBG pH (7.32-7.42) pH Units VBG pCO2 (41-51) mmHg VBG pO2 (25-50) mmHg VBG HCO3 (21-27) mEq/L Sodium 128 L (136-145) mEq/L Potassium 4.2 (3.5-4.5) mEq/L Chloride 96 L (98-109) mEq/L Carbon Dioxide 21 (19-29) mEq/L BUN 19 (8-26) mg/dL Creatinine 4.02 H (0.72-1.25) mg/dL Est GFR ( Amer) 19 L (> 60) Est GFR (Non-Af Amer) 16 L (> 60) BUN/Creatinine Ratio 5 L (6-26) Glucose 90 (70-99) mg/dL Calculated Osmolality 268 L (280-300) Lactic Acid (0.5-2.2) mmol/L Calcium 8.5 L (8.6-10.8) mg/dL Troponin I (0-0.03) ng/mL B-Natriuretic Peptide (0-100) pg/mL Specimen Rejected Labelling 08/11/17 08/11/17 08/11/17 Range/Units 03:57 03:57 03:57 WBC (4.3-11.1) K/mcL RBC (4.19-5.50) M/mcL Hgb (12.9-16.9) g/dL Hct (37.5-50.1) % MCV (83.0-100.0) fL MCH (28.0-33.3) pg MCHC (31.6-35.5) g/dL RDW (11.5-14.5) % Plt Count (140-400) K/mcL MPV (9.4-12.4) fL Immature Gran % (0-4) % Seg Neutrophils % % Lymphocytes % % Monocytes % % Eosinophils % % Basophils % % Neutrophils # (1.6-8.9) K/mcL Lymphocytes # (0.6-4.6) K/mcL Monocytes # (0.0-1.3) K/mcL Eosinophils # (0.0-0.6) K/mcL Basophils # (0.0-0.2) K/mcL Immature Plt Fraction (1.1-6.1) % VBG pH (7.32-7.42) pH Units VBG pCO2 (41-51) mmHg VBG pO2 (25-50) mmHg VBG HCO3 (21-27) mEq/L Sodium (136-145) mEq/L Potassium (3.5-4.5) mEq/L Chloride (98-109) mEq/L Carbon Dioxide (19-29) mEq/L BUN (8-26) mg/dL Creatinine (0.72-1.25) mg/dL Est GFR ( Amer) (> 60) Est GFR (Non-Af Amer) (> 60) BUN/Creatinine Ratio (6-26) Glucose (70-99) mg/dL Calculated Osmolality (280-300) Lactic Acid 1.9 (0.5-2.2) mmol/L Calcium (8.6-10.8) mg/dL Troponin I 0.06 H* (0-0.03) ng/mL B-Natriuretic Peptide 2672 H (0-100) pg/mL Specimen Rejected 08/11/17 Range/Units 04:12 WBC (4.3-11.1) K/mcL RBC (4.19-5.50) M/mcL Hgb (12.9-16.9) g/dL Hct (37.5-50.1) % MCV (83.0-100.0) fL MCH (28.0-33.3) pg MCHC (31.6-35.5) g/dL RDW (11.5-14.5) % Plt Count (140-400) K/mcL MPV (9.4-12.4) fL Immature Gran % (0-4) % Seg Neutrophils % % Lymphocytes % % Monocytes % % Eosinophils % % Basophils % % Neutrophils # (1.6-8.9) K/mcL Lymphocytes # (0.6-4.6) K/mcL Monocytes # (0.0-1.3) K/mcL Eosinophils # (0.0-0.6) K/mcL Basophils # (0.0-0.2) K/mcL Immature Plt Fraction (1.1-6.1) % VBG pH 7.27 L (7.32-7.42) pH Units VBG pCO2 54 H (41-51) mmHg VBG pO2 53 H (25-50) mmHg VBG HCO3 25 (21-27) mEq/L Sodium (136-145) mEq/L Potassium (3.5-4.5) mEq/L Chloride (98-109) mEq/L Carbon Dioxide (19-29) mEq/L BUN (8-26) mg/dL Creatinine (0.72-1.25) mg/dL Est GFR ( Amer) (> 60) Est GFR (Non-Af Amer) (> 60) BUN/Creatinine Ratio (6-26) Glucose (70-99) mg/dL Calculated Osmolality (280-300) Lactic Acid (0.5-2.2) mmol/L Calcium (8.6-10.8) mg/dL Troponin I (0-0.03) ng/mL B-Natriuretic Peptide (0-100) pg/mL Specimen Rejected - Radiology Data Radiology results reviewed: Yes I reviewed the patient's radiology results. - EKG Data EKG #1 EKG attestation: Yes I reviewed and interpreted this EKG. EKG shows normal: sinus rhythm Rate: normal Rhythm: NSR [place]/QRS: normal When compared to previous EKG there are: no significant changes Interpretation: no acute changes Critical Care Time Critical Care Time: Yes Total Critical Care Time: 35 Attestation: Critical care performed: Time is exclusive of separately billable procedures. Time includes: direct patient care, patient reassessment, coordination of patient care, interpretation of data (laboratory data, radiology data, and respiratory data), review of patient's medical records, medical consultation and documentation of patient care. Procedures included in critical care time: Procedures excluded from critical care time: Attestation Statement - Attestation Attestation: I, Chava Erazo MD, personally evaluated this patient and discussed their management with the resident physician. I reviewed the resident's note and agree with the documented findings, medical decision making, and plan of care. 52-year-old male with end-stage renal disease on hemodialysis who is well known to this department presents complaining of shortness of breath which started during the night and got rapidly worse. He has presented here many times with similar recurrent episodes. He had dialysis 2 days ago which was his normal scheduled time. No increased cough or fever. No significant chest pain. States he just cannot get any air. Patient was brought in on CPAP per EMS. On arrival here he was placed on BiPAP with improvement in his symptoms. On examination patient is well-developed well-nourished male in mild respiratory distress. He is alert and oriented 3. There is no cyanosis or diaphoresis. Breath sounds are decreased bilaterally with bibasilar rales. Heart regular. Abdomen soft with normal bowel sounds. Labs reviewed. Chest x-ray shows Grossly stable pulmonary edema and right basilar pleuroparenchymal disease. Patient was placed on a nitroglycerin drip. The hospitalist, Dr. Cohen, was consulted and accepted admission of the patient. The cabinet and trim installer on-call, Dr. Richter, was also consulted and advised to the patient's admission as he will need dialyzed in the hospital.
[2017-08-11] MEDS ORDERED: Furosemide 40 MG/4 ML VIAL IVP ONE (04:16)
[2017-08-11 04:18] LABS: VBG HCO3 25 mEq/L (21-27); VBG PCO2 54 mmHg (41-51); VBG PH 7.27 pH Units (7.32-7.42); VBG PO2 53 mmHg (25-50)
[2017-08-11 04:21] LABS: Calcium 8.5 mg/dL (8.6-10.8); Potassium 4.2 mEq/L (3.5-4.5)
[2017-08-11] MEDS ORDERED: Nitroglycerin 25 MG/250 ML INFUS..BTL IVC SCH (04:30)
[2017-08-11] MEDS ORDERED: Aspirin 325 MG TABLET PO ONE (05:14)
--- NOTE | 2017-08-11 06:00 | Internal Med History&Physical ---
Date of Encounter: 08/11/17 Time of Encounter: 05:30 Assessment and Plan (1) Acute and chronic respiratory failure with hypoxia Current visit: Yes Status: Acute Patient placed on Bipap will continue for now and attempt to wean off. Nebs prn, (2) Acute exacerbation of CHF (congestive heart failure) Current visit: Yes Status: Acute Lasix 40 IVP given will continue as needed Continue Bipap Will attempt to titrate off Nitro gtt For HD today: will follow up with renal. Qualifiers: Congestive heart failure type: unspecified congestive heart failure type Qualified Code(s): I50.9 - Heart failure, unspecified (3) Pulmonary edema Current visit: Yes Status: Acute As above Qualifiers: Chronicity: chronic Qualified Code(s): J81.1 - Chronic pulmonary edema (4) ESRD (end stage renal disease) Current visit: Yes Status: Chronic For HD today. (5) COPD exacerbation Current visit: Yes Status: Acute Nebs Steroids Bipap Internal Medicine - H&P: HPI Chief complaint: SOB this AM at 3:10 Admitted From: Home Plans for Post Hospital Care: Home History of present illness: Mr. Castro is a 52 year old male well known to our service with ah/o ERSD on HD , CHF COPD comes after waking up this morning with acute onset of dyspnea. He denies any chest pains, fevers, chronic cough has not changed. Has orthopnea, no pedal edema, says he is compliant with his meds. Last was seen in the hospital 07/31/17 with similar symptoms. HD schedule is MWF and he has not missed any sessions. In ER BP significantly elevated, started on Bipap. When I saw him he was less dyspneic and felt much better but not at his baseline as yet. No other complaints Estimated LOS less 2 MN Moderate Risk given his comorbidities. Past Med Surg Social Fam HX - Past Medical History Medical history: arthritis, CHF, COPD, coronary artery disease, dialysis, GERD, hyperlipidemia, hypertension, myocardial infarction, osteoporosis, peripheral artery disease, renal disease, other Psychiatric history: anxiety, bipolar, depression, other - Past Surgical History Surgical History: non-contributory, vascular surgery, other - Social History Smoking Status: Current every day smoker Smokeless Tobacco Status: Yes Alcohol use: none Drug use: marijuana - Family History Mother Living Status: Hx Family Cardiac Disorders: Yes Father Living Status: Hx Family Cardiac Disorders: Yes Hx Family Cancer: Yes Internal Medicine - H&P: Meds Citalopram [CeleXA] 40 mg PO DAILY 10/02/15 [History] Fluticasone/Salmeterol [Advair 250-50 Diskus] 1 puff IH BID 10/02/15 [History] Furosemide [Lasix] 40 mg PO BID 10/02/15 [History] Lidocaine Patch [Lidoderm 5% patch] 1 patch TP DAILY 10/02/15 [History] hydrOXYzine HCl [Hydroxyzine HCl] 25 mg PO TID 10/02/15 [History] Isosorbide MONOnitrate (24 HR) [Imdur] 30 mg PO DAILY #30 tab.er.24h 09/03/16 [ Rx] Ferrous Sulfate [Iron] 325 mg PO DAILY 10/04/16 [History] Ergocalciferol (VITAMIN D2) [Vitamin D2] 50,000 unit PO QWEEK 11/03/16 [History] Lisinopril [Zestril] 10 mg PO DAILY 11/03/16 [History] Simvastatin [Zocor] 40 mg PO HS 11/03/16 [History] Tizanidine HCl [Zanaflex] 4 mg PO TID 11/03/16 [History] Ipratropium/Albuterol Sulfate [Combivent Respimat Inhal [place]] 1 puff IH QID 04/28 [History] Aspirin 81 mg PO DAILY #30 tab.chew 11/24/16 [Rx] Albuterol Sulfate [Proair Hfa] 2 puff IH Q4H PRN 05/08/17 [History] BuPROPion SR (12 HR) [Wellbutrin SR] 150 mg PO BID 05/08/17 [History] Calcium Acetate [Phos-LO] 1,334 mg PO TIDWM 05/08/17 [History] Mupirocin [Bactroban Oint] 1 appl TP BID 05/08/17 [History] Ondansetron HCl [Zofran] 4 mg PO BID 05/08/17 [History] Sevelamer [Renvela] 2,400 mg PO TIDWM 05/08/17 [History] Tramadol HCl [Ultram] 50 mg PO TID PRN 05/08/17 [History] Ipratropium/Albuterol Neb [Duoneb] 3 ml IH Q4HR #90 vial.neb 07/25/17 [Rx] PrednisoLONE [Millipred] 30 mg PO DAILY #10 tablet 07/25/17 [Rx] Carvedilol 12.5 mg PO BID 07/30/17 [History] Varenicline Tartrate [Chantix] 1 tab PO AD 07/30/17 [History] Gabapentin [Neurontin] 600 mg PO QID #90 tablet 07/31/17 [Rx] 3 Allergy/AdvReac Type Severity Reaction Status Date / Time bee venom protein (honey bee) AdvReac Swelling Verified 06/30/17 04:08 of Lip/Tongue/Throat potassium AdvReac Vomiting Verified 06/30/17 04:08 prednisone AdvReac Vomiting Verified 06/30/17 04:08 All Systems PM: A 10-system review of systems was performed and is negative for pertinent findings except as documented above in the HPI. - Constitutional Vitals: Temp Pulse Resp BP Pulse Ox 97.6 F 85 20 147/95 97 08/11/17 03:42 08/11/17 05:00 08/11/17 03:54 08/11/17 05:00 08/11/17 05:00 General appearance: Present: A&O X 3, no acute distress Exam: On bipap - Head Head exam: Present: atraumatic, normal inspection, normocephalic - Eye Eye exam: Present: normal appearance, PERRL - ENT ENT exam: Present: mucous membranes moist - Neck Neck exam general surgery: Present: full ROM, supple, trachea midline - Respiratory Respiratory exam: Present: decreased breath sounds Additional comments: bilaterally, mild exp wheezes - Cardiovascular Cardiovascular exam: Present: +S1, +S2 - GI/Abdominal GI/Abdominal exam: Present: normal bowel sounds, no peritoneal signs - Extremities Exam Extremities exam: Present: normal capillary refill, normal inspection - Neurological Exam Neurological exam: Present: CN II-XII intact, oriented X3, no focal deficits - Psychiatric Psychiatric exam: Present: normal affect, normal mood - Skin Skin exam: Present: dry, warm Internal Med - H&P Results - Labs CBC & Chem 7: 08/11/17 03:57 08/11/17 03:57 - EKG Data -: EKG Interpreted by Myself EKG shows normal: sinus rhythm - Diagnostic Studies Chest x-ray Status: image reviewed by me
[2017-08-11] MEDS ORDERED: Ipratropium Neb 0.5 MG NEBULIZER IH PRN (06:01)
[2017-08-11] MEDS ORDERED: Albuterol 2.5 MG/3 ML NEBULIZER IH PRN (06:01)
[2017-08-11] MEDS ORDERED: Ondansetron 4 MG/2 ML VIAL IVP PRN (06:03)
[2017-08-11] MEDS ORDERED: Acetaminophen 325 MG TABLET PO PRN (06:03)
[2017-08-11] MEDS ORDERED: Naloxone 0.4 MG/ML INJ IVP PRN (06:03)
[2017-08-11] MEDS ORDERED: traMADol 50 MG TABLET PO PRN ×2 (06:04→09:18)
[2017-08-11] MEDS ORDERED: VARENICLINE TARTRATE PO SCH (06:15)
[2017-08-11] MEDS: Ipratropium/Albuterol Neb 3 ML IH SCH ×5 (07:42→23:31)
[2017-08-11] MEDS ORDERED: *HR* Labetalol 20 MG/4 ML SYRINGE IVP PRN (08:13)
[2017-08-11] MEDS ORDERED: Gabapentin 300 MG CAPSULE PO SCH ×2 (09:00→09:30)
[2017-08-11] MEDS ORDERED: Furosemide 40 MG/4 ML VIAL IVP SCH (09:00)
[2017-08-11] MEDS ORDERED: 0.9 % Sodium Chloride 250 ML IVC PRN (09:54)
[2017-08-11] MEDS ORDERED: *HR* Heparin 10,000 UNIT/10 ML VIAL IV PRN (09:54)
[2017-08-11] MEDS ORDERED: 0.9 % Sodium Chloride 1,000 ML PRIME SCH (10:00)
--- NOTE | 2017-08-11 10:03 | Nephrology Consult Note ---
Date of Encounter: 08/11/17 Time of Encounter: 10:00 Assessment and Plan (1) Fluid overload Current Visit: No Status: Acute patient came in with difficulty in breathing. chest xray showed Grossly stable pulmonary edema currently requiring 4L oxygen nasal canula states he is supposed to be on a fluid restricted diet at home, but is non compliant. Plan: will get dialysis today, plan to take off 4kg will check for possible ultrafiltration tomorrow. continue IV lasix 40mg BID Qualifiers: Hypervolemia type: other Qualified Code(s): E87.79 - Other fluid overload (2) Acute respiratory failure with hypoxia Current Visit: No Status: Acute as above (3) Elevated troponin Current Visit: No Status: Chronic patient has chronically elevated troponins secondaryt to ESRD currently chest pain free continue to monitor. (4) ESRD (end stage renal disease) on dialysis Current Visit: No Status: Chronic as above (5) Acute systolic CHF (congestive heart failure) Current Visit: No Status: Chronic last echo on 05/14/17 showed LVEF 50%, moderate mitral regurg with restricted motion of posterior mitral valve leaflet. (6) Hyponatremia Current Visit: No Status: Acute likely secondary to volume overload: hypervolemic hyponatremia continue with dialysis. History of Present Illness - Reason for Consult Consult date: 08/11/17 end stage renal disease Requesting physician: Nikita Estrada - Chief Complaint fluid overload. - History of Present Illness 52 year old male evaluated at bedside. he is sitting up in bed, and is requiring 4L oxygen at this time. patient denies nausea, vomiting, diarrhea, fever, chills, chest pain. reports mild shortness of breath. he denies any further issues today. he was admitted overnight for chief complaint of shorntess of breath. he states this happens intermittently. he states he is supposed to be on a fluid restricted diet at home, but does not not follow a fluid restricted diet at home. patient states that he wears 4L oxygen at night at home. Past Med Surg Social Fam HX - Past Medical History Medical history: arthritis, CHF, COPD, coronary artery disease, dialysis, GERD, hyperlipidemia, hypertension, myocardial infarction, osteoporosis, peripheral artery disease, renal disease, other Psychiatric history: anxiety, bipolar, depression, other - Past Surgical History Surgical History: non-contributory, vascular surgery, other - Social History Smoking Status: Current every day smoker Smokeless Tobacco Status: Yes Alcohol use: none Drug use: marijuana - Family History Mother Living Status: Hx Family Cardiac Disorders: Yes Father Living Status: Hx Family Cardiac Disorders: Yes Hx Family Cancer: Yes Medications and Allergies Citalopram [CeleXA] 40 mg PO DAILY 10/02/15 [History] Fluticasone/Salmeterol [Advair 250-50 Diskus] 1 puff IH BID 10/02/15 [History] Furosemide [Lasix] 40 mg PO BID 10/02/15 [History] Lidocaine Patch [Lidoderm 5% patch] 1 patch TP DAILY 10/02/15 [History] hydrOXYzine HCl [Hydroxyzine HCl] 25 mg PO TID 10/02/15 [History] Isosorbide MONOnitrate (24 HR) [Imdur] 30 mg PO DAILY #30 tab.er.24h 09/03/16 [ Rx] Ferrous Sulfate [Iron] 325 mg PO DAILY 10/04/16 [History] Ergocalciferol (VITAMIN D2) [Vitamin D2] 50,000 unit PO QWEEK 11/03/16 [History] Lisinopril [Zestril] 10 mg PO DAILY 11/03/16 [History] Simvastatin [Zocor] 40 mg PO HS 11/03/16 [History] Tizanidine HCl [Zanaflex] 4 mg PO TID 11/03/16 [History] Ipratropium/Albuterol Sulfate [Combivent Respimat Inhal [place]] 1 puff IH QID 04/28 [History] Aspirin 81 mg PO DAILY #30 tab.chew 11/24/16 [Rx] Albuterol Sulfate [Proair Hfa] 2 puff IH Q4H PRN 05/08/17 [History] BuPROPion SR (12 HR) [Wellbutrin SR] 150 mg PO BID 05/08/17 [History] Calcium Acetate [Phos-LO] 1,334 mg PO TIDWM 05/08/17 [History] Mupirocin [Bactroban Oint] 1 appl TP BID 05/08/17 [History] Ondansetron HCl [Zofran] 4 mg PO BID 05/08/17 [History] Sevelamer [Renvela] 2,400 mg PO TIDWM 05/08/17 [History] Tramadol HCl [Ultram] 50 mg PO TID PRN 05/08/17 [History] Ipratropium/Albuterol Neb [Duoneb] 3 ml IH Q4HR #90 vial.neb 07/25/17 [Rx] PrednisoLONE [Millipred] 30 mg PO DAILY #10 tablet 07/25/17 [Rx] Carvedilol 12.5 mg PO BID 07/30/17 [History] Varenicline Tartrate [Chantix] 1 tab PO AD 07/30/17 [History] Gabapentin [Neurontin] 600 mg PO QID #90 tablet 07/31/17 [Rx] 3 Allergy/AdvReac Type Severity Reaction Status Date / Time bee venom protein (honey bee) AdvReac Swelling Verified 06/30/17 04:08 of Lip/Tongue/Throat potassium AdvReac Vomiting Verified 06/30/17 04:08 prednisone AdvReac Vomiting Verified 06/30/17 04:08 Review of Systems All Systems: reviewed and no additional remarkable complaints except as stated Exam - Vital Signs Vital signs: Initial Vital Signs Temp Pulse Resp BP Pulse Ox 97.6 F 98 24 182/121 94 08/11/17 03:42 08/11/17 03:42 08/11/17 03:42 08/11/17 03:42 08/11/17 03:42 Vital Signs - Last 8 Hours Temp Pulse Resp BP Pulse Ox 08/11/17 07:42 16 93 08/11/17 06:55 97.6 F 91 16 183/97 95 08/11/17 06:08 16 169/98 Intake and Output 08/10/17 08/11/17 08/11/17 23:59 07:59 15:59 Other: Blood Glucose* 116 - General Appearance General appearance: well-developed, well-nourished, appears started age, chronically ill Neck: no JVD Respiratory: wheezing, rales, rhonchi Cardiology: no murmurs, no rub, no gallops, no edema, regular rate, regular rhythm, normal S1, normal S2 Gastrointestinal: normoactive bowel sounds, no tenderness, no guarding, no organomegaly, no masses Integumentary: no rash, warm and dry Neurologic: no focal deficit, alert and oriented x3 Musculoskeletal: no deformities, no erythema Results - Lab Results 08/11/17 03:57 08/11/17 03:57 Most recent lab results Calcium 8.5 mg/dL (8.6-10.8) L 08/11/17 03:57 Consult Discharge Plan - Plan Referrals: Nallely Hanna, MEKHI [Primary Care Provider] -
[2017-08-11] MEDS: Calcium Acetate 667 MG CAPSULE PO SCH ×3 (10:33→15:03)
[2017-08-11] MEDS ORDERED: 0.9 % Sodium Chloride 2,000 ML ONE (10:59)
[2017-08-11 11:57] LABS: Hepatitis B Surface Antigen Nonreactive (Nonreactive)
[2017-08-11] MEDS: Isosorbide MONOnitrate (24 HR) 30 MG TAB.ER.24H PO SCH (12:05)
[2017-08-11 12:06] LABS: Hepatitis B Surface Antibody 79.48 mIU/mL
[2017-08-11] MEDS: Furosemide 40 MG/4 ML VIAL IVP SCH ×2 (12:06→16:36)
[2017-08-11] MEDS: PrednisoLONE Oral Soln 15 MG/5 ML UDC PO SCH (15:02)
[2017-08-11] MEDS: tiZANidine 4 MG TABLET PO SCH ×3 (15:03→20:51)
[2017-08-11] MEDS: hydrOXYzine pamoate 25 MG CAPSULE PO SCH ×3 (15:03→20:51)
[2017-08-11] MEDS: Gabapentin 300 MG CAPSULE PO SCH ×3 (15:04→20:51)
[2017-08-11] MEDS: BuPROPion SR (12 HR) 150 MG TABLET PO SCH ×2 (15:05→20:51)
[2017-08-11] MEDS: Aspirin 81 MG TAB.CHEW PO SCH (15:05)
[2017-08-11] MEDS: *HR* Heparin 5,000 UNIT/ML VIAL SQ SCH (16:37)
[2017-08-11] MEDS ORDERED: Dextrose Gel 15 GM PO PRN ×2 (17:10)
[2017-08-11] MEDS ORDERED: *HR* Dextrose 50 % in Water (Syg) 50 ML SYRINGE IVP PRN (17:10)
[2017-08-11] MEDS ORDERED: D5% in Water 1,000 ML IVC PRN (17:10)
--- NOTE | 2017-08-11 17:18 | Electrocardiograph Report ---
[place] [id number] Test Date: 2017-08-11 Pat Name: Steve Castro Department: 102 Room: 2A48 Gender: M Card Reader: : 1965 Requested By: Burke Tanner Order Number: [id number] Reading MD: Mckayla Beckett Measurements Intervals [place] Rate: 94 P: 20 SD: 114 QRS: 67 QRSD: 96 T: 15 QT: 375 QTc: 426 Interpretive Statements SINUS RHYTHM WITH SHORT SD INTERVAL POSSIBLE LEFT ATRIAL ENLARGEMENT [-0.1mV P WAVE IN V1/V2] MINIMAL ST DEPRESSION [0.025+ mV ST DEPRESSION] Electronically Signed On 08-11-2017 17:17:01 EDT by Mckayla Beckett
[2017-08-11] MEDS ORDERED: Insulin LISPRO 300 UNITS/3 ML VIAL SQ SCH (21:00)
--- NOTE | 2017-08-12 02:28 | Event Note ---
Date of Encounter: 08/11/17 Time of Encounter: 17:46 Patient returned from dialysis. Eating dinner currently in no acute distress. States he is feeling better after dialysis. On lung exam patient had good aeration of all lung [place], no wheezing, there was fine rales throughout, no rhonchi. - Continue Lasix IV as needed - Nitro drip has been held as his symptoms have improved and he is now off bipap.
[2017-08-12] MEDS: Ipratropium/Albuterol Neb 3 ML IH SCH ×4 (03:40→15:31)
[2017-08-12] MEDS: *HR* Heparin 5,000 UNIT/ML VIAL SQ SCH (05:25)
[2017-08-12 05:57] LABS: Hematocrit 29.2 % (37.5-50.1); Hemoglobin 9.7 g/dL (12.9-16.9); Immature Granulocytes % 0.7 % (0-4); Lymphocytes % 18.3 %; Mean Corpuscular HGB Conc 33.2 g/dL (31.6-35.5); Mean Corpuscular Hemoglobin 28.9 pg (28.0-33.3); Mean Corpuscular Volume 86.9 fL (83.0-100.0); Mean Platelet Volume 10.8 fL (9.4-12.4); Monocytes # 0.2 K/mcL (0.0-1.3); Monocytes % 4.4 %; Neutrophils # 4.1 K/mcL (1.6-8.9); Platelet Count 175 K/mcL (140-400); Red Blood Count 3.36 M/mcL (4.19-5.50); Red Cell Distribution Width 13.8 % (11.5-14.5); Segmented Neutrophils % 76.6 %
[2017-08-12 06:10] LABS: Albumin 2.8 g/dL (3.5-5.0); Albumin/Globulin Ratio 0.8 (1.1-2.2); Alkaline Phosphatase 116 Units/L (38-126); Aspartate Amino Transferase 11 Units/L (5-34); BUN/Creatinine Ratio 8 (6-26); Bilirubin,Total 0.4 mg/dL (0.2-1.2); Blood Urea Nitrogen 26 mg/dL (8-26); Calcium 8.7 mg/dL (8.6-10.8); Carbon Dioxide 24 mEq/L (19-29); Chloride 93 mEq/L (98-109); Globulin 3.5 g/dL (2.4-3.5); Glucose 141 mg/dL (70-99); Osmolality,Calculated 271 (280-300); Potassium 4.3 mEq/L (3.5-4.5); Sodium 127 mEq/L (136-145); Total Protein 6.3 g/dL (6.0-8.3); eGFR For African Americans 24 (> 60); eGFR For Non-African Americans 20 (> 60)
[2017-08-12 06:11] LABS: Alanine Aminotransferase < 6 Units/L (0-55)
[2017-08-12] MEDS ORDERED: 0.9 % Sodium Chloride 250 ML IVC PRN (07:21)
[2017-08-12] MEDS ORDERED: *HR* Heparin 10,000 UNIT/10 ML VIAL IV PRN (07:21)
[2017-08-12] MEDS ORDERED: 0.9 % Sodium Chloride 2,000 ML ONE (07:43)
[2017-08-12] MEDS: Insulin LISPRO 300 UNITS/3 ML VIAL SQ SCH ×2 (09:02→11:26)
[2017-08-12] MEDS: Isosorbide MONOnitrate (24 HR) 30 MG TAB.ER.24H PO SCH (09:03)
[2017-08-12] MEDS: Aspirin 81 MG TAB.CHEW PO SCH (09:03)
[2017-08-12] MEDS: Calcium Acetate 667 MG CAPSULE PO SCH ×2 (09:03→11:57)
[2017-08-12] MEDS: BuPROPion SR (12 HR) 150 MG TABLET PO SCH (09:03)
[2017-08-12] MEDS: Gabapentin 300 MG CAPSULE PO SCH (09:03)
[2017-08-12] MEDS: hydrOXYzine pamoate 25 MG CAPSULE PO SCH (09:03)
[2017-08-12] MEDS: tiZANidine 4 MG TABLET PO SCH (09:03)
[2017-08-12] MEDS: PrednisoLONE Oral Soln 15 MG/5 ML UDC PO SCH (09:07)
[2017-08-12] MEDS: Furosemide 40 MG/4 ML VIAL IVP SCH (09:10)
--- NOTE | 2017-08-12 11:22 | Nephrology Progress Note ---
Date of Encounter: 08/12/17 Time of Encounter: 11:20 - Assessment and Plan (1) Fluid overload Current Visit: No Status: Acute patient came in with difficulty in breathing. chest xray showed Grossly stable pulmonary edema currently requiring 4L oxygen nasal canula states he is supposed to be on a fluid restricted diet at home, but is non compliant. Plan: s/p dialysis yesterday. ultrafiltration today. Qualifiers: Hypervolemia type: other Qualified Code(s): E87.79 - Other fluid overload (2) Acute respiratory failure with hypoxia Current Visit: No Status: Acute as above (3) Elevated troponin Current Visit: No Status: Chronic patient has chronically elevated troponins secondaryt to ESRD currently chest pain free continue to monitor. (4) ESRD (end stage renal disease) on dialysis Current Visit: No Status: Chronic as above (5) Acute systolic CHF (congestive heart failure) Current Visit: No Status: Chronic last echo on 05/14/17 showed LVEF 50%, moderate mitral regurg with restricted motion of posterior mitral valve mary (6) Hyponatremia Current Visit: No Status: Acute likely secondary to volume overload: hypervolemic hyponatremia continue with regularly scheduled dialysis. ultrafiltration today. Subjective Principal diagnosis: volume overload Interval history: 52M evaluated at bedside. he denies nausea, vomiting, diarrhea, fever, chills, chest pain, shortness of breath. he states he feels a lot better today and is denying any new problems. Objective - Vital Signs Vital signs: Vital Signs Temp Pulse Resp BP Pulse Ox 08/12/17 07:38 17 99 08/12/17 06:30 98.1 F 80 17 156/79 99 08/12/17 03:48 97.3 F L 82 16 163/95 94 08/11/17 23:55 97.9 F 90 16 142/77 97 08/11/17 23:31 16 98 08/11/17 20:14 15 99 08/11/17 19:17 98.0 F 72 16 123/78 98 Intake and Output 08/11/17 08/12/17 08/12/17 23:59 07:59 15:59 Intake Total 480 / 480 240 / 240 Balance 480 / 480 240 / 240 Intake: IV Fluids 0 / 0 Oral 480 / 480 240 / 240 Other: Meal Breakfast Percent of Meal Consumed 100% Weight 79 kg Blood Glucose* 222 126 Patient Weight 08/12/17 23:59 Weight 79 kg - General Appearance General appearance: Present: well-developed, well-nourished, appears started age Neck: Present: no JVD Respiratory: Present: kyphosis, wheezing Cardiology: Present: no murmurs, no rub, no gallops, regular rate, regular rhythm, normal S1, normal S2 Gastrointestinal: Present: normoactive bowel sounds, no tenderness, no guarding , no organomegaly, no masses Integumentary: Present: no rash, warm and dry Neurologic: Present: no focal deficit, alert and oriented x3 Musculoskeletal: Present: no deformities - Lab 08/12/17 05:10 08/12/17 05:10 Most recent lab results Calcium 8.7 mg/dL (8.6-10.8) 08/12/17 05:10 Consult Discharge Plan - Plan Referrals: Nallely Hanna, LE[facility] EXAMINER [Primary Care Provider] -
[2017-08-12 14:11] VITALS: BP 121/69
--- NOTE | 2017-08-12 14:13 | Discharge Summary ---
Date of Encounter: 08/12/17 Time of Encounter: 09:50 - Discharge Diagnosis (1) Noncompliance Priority: Primary Status: Chronic (2) Pulmonary edema Priority: Primary Status: Acute Qualifiers: Chronicity: acute Qualified Code(s): J81.0 - Acute pulmonary edema (3) CHF (congestive heart failure) Priority: Primary Status: Chronic Qualifiers: Congestive heart failure type: diastolic Congestive heart failure chronicity: acute on chronic Qualified Code(s): I50.33 - Acute on chronic diastolic (congestive) heart failure (4) ESRD (end stage renal disease) on dialysis Priority: Secondary Status: Chronic (5) Pleural effusion Priority: Primary Status: Chronic (6) COPD (chronic obstructive pulmonary disease) Priority: Secondary Status: Chronic Qualifiers: COPD type: unspecified COPD Qualified Code(s): J44.9 - Chronic obstructive pulmonary disease, unspecified (7) HTN (hypertension) Priority: Secondary Status: Chronic Qualifiers: Hypertension type: essential hypertension Qualified Code(s): I10 - Essential (primary) hypertension (8) CAD (coronary artery disease) Priority: Secondary Status: Chronic Qualifiers: Coronary Disease-Associated Artery/Lesion type: [place] artery [place] vs. transplanted heart: [place] heart Associated angina: without angina Qualified Code(s): I25.10 - Atherosclerotic heart disease of [place] coronary artery without angina pectoris (9) Tobacco abuse Priority: Secondary Status: Chronic - Discharge Medications Home Medications: Citalopram [CeleXA] 40 mg PO DAILY 10/02/15 [History] Fluticasone/Salmeterol [Advair 250-50 Diskus] 1 puff IH BID 10/02/15 [History] Furosemide [Lasix] 40 mg PO BID 10/02/15 [History] Lidocaine Patch [Lidoderm 5% patch] 1 patch TP DAILY 10/02/15 [History] hydrOXYzine HCl [Hydroxyzine HCl] 25 mg PO TID 10/02/15 [History] Isosorbide MONOnitrate (24 HR) [Imdur] 30 mg PO DAILY #30 tab.er.24h 09/03/16 [ Rx] Ferrous Sulfate [Iron] 325 mg PO DAILY 10/04/16 [History] Ergocalciferol (VITAMIN D2) [Vitamin D2] 50,000 unit PO QWEEK 11/03/16 [History] Lisinopril [Zestril] 10 mg PO DAILY 11/03/16 [History] Simvastatin [Zocor] 40 mg PO HS 11/03/16 [History] Tizanidine HCl [Zanaflex] 4 mg PO TID 11/03/16 [History] Ipratropium/Albuterol Sulfate [Combivent Respimat Inhal [place]] 1 puff IH QID 04/28 [History] Aspirin 81 mg PO DAILY #30 tab.chew 11/24/16 [Rx] Albuterol Sulfate [Proair Hfa] 2 puff IH Q4H PRN 05/08/17 [History] BuPROPion SR (12 HR) [Wellbutrin SR] 150 mg PO BID 05/08/17 [History] Calcium Acetate [Phos-LO] 1,334 mg PO TIDWM 05/08/17 [History] Mupirocin [Bactroban Oint] 1 appl TP BID 05/08/17 [History] Ondansetron HCl [Zofran] 4 mg PO BID 05/08/17 [History] Sevelamer [Renvela] 2,400 mg PO TIDWM 05/08/17 [History] Tramadol HCl [Ultram] 50 mg PO TID PRN 05/08/17 [History] Ipratropium/Albuterol Neb [Duoneb] 3 ml IH Q4HR #90 vial.neb 07/25/17 [Rx] PrednisoLONE [Millipred] 30 mg PO DAILY #10 tablet 07/25/17 [Rx] Carvedilol 12.5 mg PO BID 07/30/17 [History] Varenicline Tartrate [Chantix] 1 tab PO AD 07/30/17 [History] Gabapentin [Neurontin] 300 mg PO TID capsule 08/12/17 [Rx] Allergies/Adverse Reactions: 3 Allergy/AdvReac Type Severity Reaction Status Date / Time bee venom protein (honey bee) AdvReac Swelling Verified 06/30/17 04:08 of Lip/Tongue/Throat potassium AdvReac Vomiting Verified 06/30/17 04:08 prednisone AdvReac Vomiting Verified 06/30/17 04:08 Date of admission: 08/11/17 18:52 Primary care physician: Nallely Hanna CNP Consults: 08/12/17 07:30 Consult to Dialysis [CONS] ONCE Discharging clinician: Tish Vidal Anticipated date of discharge: 08/12/17 - Patient Status Disposition: Home, Self-Care Condition: Fair Functional capacity at discharge: uses cane/walker Overall status at discharge: patient is progressing back to baseline - Discharge Instructions Follow Up With: Nallely Hanna CNP [Primary Care Provider] - 08/19/17 10:00 am Additional Instructions: F/up with PCP in 1-2 weeks F/up with HD 3 times/week- MWF - Diet and Activity Activity: resume usual activities as tolerated, wear oxygen at all times Diet: diabetic diet, low fat, low cholesterol, low salt diet, other (renal diet) Hospital course: Mr. Castro is a 52 year old male with the above medical problems, who was admitted with worsening shortness of breath. Patient is noted to have multiple previous hospitalizations with similar complaints and he is also noncompliant with hemodialysis and medications as an outpatient. He was noted to be having volume overload and pulmonary edema and started on IV nitroglycerin drip along with IV diuresis. His blood pressure was noted to be elevated at the time of admission, which was gradually better controlled with dialysis and fluid removal. Nephrology was consulted and patient underwent inpatient hemodialysis. He was also given IV steroids and breathing treatments for COPD. He symptoms are much better today, he is noted to be saturating well on 4 L nasal cannula which is his baseline. He remains medically stable for discharge with outpatient follow-up, and adherence to dialysis sessions and medications has been reinforced. - Time Spent with Patient Total time spent providing and/or coordinating discharge services: Greater than 30 minutes (45 min) - Constitutional Vitals: Temp Pulse Resp BP Pulse Ox 97.0 F L 72 16 121/69 97 08/12/17 14:00 08/12/17 11:12 08/12/17 14:00 08/12/17 14:00 08/12/17 11:12 General appearance: Present: A&O X 3, answers questions appropriately - Respiratory Respiratory exam: Present: CTAB, rales (bibasal crackles+). Absent: accessory muscle use, rhonchi, wheezes
== END 2017-08-12 15:45 | disposition home or self-care (01) | DRG 194 ==
LOC: EMEROO 03:40 → 2ANU 03:40 → SUATTDRO 18:52
PROVIDERS: ADMIT Hospitalist; ATTEND Internal Medicine

== ENCOUNTER 2017-08-21 03:47 | Inpatient (IN) ==
[2017-08-21] MEDS ORDERED: Furosemide 40 MG/4 ML VIAL IVP ONE ×2 (03:55→05:45)
[2017-08-21] MEDS ORDERED: Nitroglycerin 25 MG/250 ML INFUS..BTL IVC SCH (04:00)
--- NOTE | 2017-08-21 04:02 | Emergency Department Note ---
Disposition Clinical Impression: Chronic kidney disease, stage IV (severe), Respiratory distress CHF exacerbation Qualifiers: Congestive heart failure type: unspecified congestive heart failure type Qualified Code(s): I50.9 - Heart failure, unspecified Disposition: Admitted As Inpatient Condition: Fair General Adult HPI - General Chief complaint: ED Shortness of Breath/Dyspnea Stated complaint: resp distress Time Seen by Provider: 08/21/17 03:50 Source: patient, EMS Limitations: no limitations Nursing Notes Reviewed: Yes Vital Signs Reviewed: Yes - History of Present Illness HPI Narrative: 52-year-old male who states that he awoke with shortness of breath. He does have oxygen at home and wears 2 L at all times. He does not report having a BiPAP. He has a long history of congestive heart failure with multiple admissions recently for the same. He was just admitted a little over one week ago. He is known to be noncompliant with his diet as the cause for his frequent exacerbations. He does admit that she is eating and drinking things seemed he should not. He has dialysis on Friday and Friday. He just had dialysis yesterday. He denies having any pain anywhere. He admits to worsening edema. He is seen by the [facility] Radiation: non-radiation Pain Scale: 0 Improves with: nothing Worsens with: nothing Associated symptoms: Reports: denies other symptoms Treatments Prior to Arrival: none - Related Data Home Medications Medication Instructions Recorded Confirmed Citalopram [CeleXA] 40 mg PO DAILY 10/02/15 08/11/17 Fluticasone/Salmeterol [Advair 1 puff IH BID 10/02/15 08/11/17 250-50 Diskus] Furosemide [Lasix] 40 mg PO BID 10/02/15 08/11/17 Lidocaine Patch [Lidoderm 5% patch] 1 patch TP DAILY 10/02/15 08/11/17 hydrOXYzine HCl [Hydroxyzine HCl] 25 mg PO TID 10/02/15 08/11/17 Ferrous Sulfate [Iron] 325 mg PO DAILY 10/04/16 08/11/17 Ergocalciferol (VITAMIN D2) 50,000 unit PO QWEEK 11/03/16 08/11/17 [Vitamin D2] Lisinopril [Zestril] 10 mg PO DAILY 11/03/16 08/11/17 Simvastatin [Zocor] 40 mg PO HS 11/03/16 08/11/17 Tizanidine HCl [Zanaflex] 4 mg PO TID 11/03/16 08/11/17 Ipratropium/Albuterol Sulfate 1 puff IH QID 11/19/16 08/11/17 [Combivent Respimat Inhal [place]] Albuterol Sulfate [Proair Hfa] 2 puff IH Q4H PRN 05/08/17 08/11/17 BuPROPion SR (12 HR) [Wellbutrin 150 mg PO BID 05/08/17 08/11/17 SR] Calcium Acetate [Phos-LO] 1,334 mg PO TIDWM 05/08/17 08/11/17 Mupirocin [Bactroban Oint] 1 appl TP BID 05/08/17 08/11/17 Ondansetron HCl [Zofran] 4 mg PO BID 05/08/17 08/11/17 Sevelamer [Renvela] 2,400 mg PO TIDWM 05/08/17 08/11/17 Tramadol HCl [Ultram] 50 mg PO TID PRN 05/08/17 08/11/17 Carvedilol 12.5 mg PO BID 07/30/17 08/11/17 Varenicline Tartrate [Chantix] 1 tab PO AD 07/30/17 08/11/17 Previous Rx's Medication Instructions Recorded Isosorbide MONOnitrate (24 HR) 30 mg PO DAILY #30 tab.er.24h 09/03/16 [Imdur] Aspirin 81 mg PO DAILY #30 tab.chew 11/24/16 Ipratropium/Albuterol Neb [Duoneb] 3 ml IH Q4HR #90 vial.neb 07/25/17 PrednisoLONE [Millipred] 30 mg PO DAILY #10 tablet 07/25/17 Gabapentin [Neurontin] 300 mg PO TID capsule 08/12/17 Allergies Allergy/AdvReac Type Severity Reaction Status Date / Time bee venom protein (honey bee) AdvReac Swelling Verified 06/30/17 04:08 of Lip/Tongue/Throat potassium AdvReac Vomiting Verified 06/30/17 04:08 prednisone AdvReac Vomiting Verified 06/30/17 04:08 All systems ED: reviewed and negative except as stated. Constitutional: Denies: fever Eyes: Denies: vision change ENT ED: Denies: throat pain Cardiovascular: Denies: chest pain Respiratory: Reports: dyspnea. Denies: cough Gastrointestinal: Denies: abdominal pain Genitourinary: Denies: dysuria Musculoskeletal: Denies: back pain Integumentary: Denies: rash Endocrine: Reports: fatigue Past Medical History - Past Medical History Medical history: Reports: arthritis, CHF, COPD, coronary artery disease, dialysis, GERD, hyperlipidemia, hypertension, myocardial infarction, osteoporosis, peripheral artery disease, renal disease, other Surgical history: Reports: non-contributory, vascular surgery, other Psychiatric history: Reports: anxiety, bipolar, depression, other - Social History Smoking Status: Current every day smoker Smokeless Tobacco Status: Yes Alcohol use: Reports: none Drug use: Reports: marijuana Physical Exam - General Limitations: no limitations General appearance: in distress - Head Head exam: atraumatic - Eye Eye exam: Present: normal appearance, PERRL - ENT ENT exam: normal exam, normal oropharynx - Neck Neck exam: Present: normal inspection - Chest Chest inspection: Present: normal inspection - Respiratory Respiratory exam: Present: other (Diminished breath sounds throughout.) - Cardiovascular Cardiovascular exam: Present: regular rate, normal rhythm - Abdominal Exam Abdominal exam: Present: soft, Non-Tender - Extremities Exam Extremities exam: Present: pedal edema - Neurological Exam Neurological exam: Present: alert, oriented X3 - Psychiatric Psychiatric exam: Present: normal affect, normal mood Course Course Narrative: He arrives by EMS on CPAP which she said helped his shortness of breath. Initial SPo2 by EMS was in the low 80's. We immediately switched him over to BiPAP in the emergency department. He clinically appears fluid overloaded and is hypertensive. We will go ahead and give him Lasix and started nitroglycerin drip. He may need dialysis later today. Accepted for admission by Dr Cohen. Nephrology was paged (Dr Acevedo) for consultation due to fluid overload and likely need for dialysis. Spoke with Dr Burrows who agreed to see the patient Vital Signs Temperature 97.5 F L 08/21/17 03:48 Pulse Rate 105 08/21/17 03:48 Respiratory Rate 24 08/21/17 03:48 Blood Pressure 177/103 08/21/17 03:48 O2 Sat by Pulse Oximetry 100 08/21/17 03:48 Temperature 97.5 F L 08/21/17 03:48 Pulse Rate 74 08/21/17 07:00 Respiratory Rate 20 08/21/17 07:07 Blood Pressure 154/93 08/21/17 07:07 O2 Sat by Pulse Oximetry 97 08/21/17 07:00 Oxygen Delivery Oxygen Delivery Bipap Medical Decision Making - Medical Records Medical records reviewed: Yes I reviewed the patient's medical records. - Lab Data Lab results reviewed: Yes I reviewed the patient's lab results. Result diagrams: 08/21/17 04:51 08/21/17 04:51 Lab Results 08/21/17 08/21/17 08/21/17 Range/Units 04:51 04:51 04:51 WBC 8.0 (4.3-11.1) K/mcL RBC 3.28 L (4.19-5.50) M/mcL Hgb 9.5 L (12.9-16.9) g/dL Hct 28.3 L (37.5-50.1) % MCV 86.3 (83.0-100.0) fL MCH 29.0 (28.0-33.3) pg MCHC 33.6 (31.6-35.5) g/dL RDW 13.7 (11.5-14.5) % Plt Count 213 (140-400) K/mcL MPV 9.1 L (9.4-12.4) fL Immature Gran % 0.6 (0-4) % Seg Neutrophils % 68.0 % Lymphocytes % 16.6 % Monocytes % 12.2 % Eosinophils % 2.1 % Basophils % 0.5 % Neutrophils # 5.4 (1.6-8.9) K/mcL Lymphocytes # 1.3 (0.6-4.6) K/mcL Monocytes # 1.0 (0.0-1.3) K/mcL Eosinophils # 0.2 (0.0-0.6) K/mcL Basophils # 0.0 (0.0-0.2) K/mcL Sodium 126 L (136-145) mEq/L Potassium 3.6 (3.5-4.5) mEq/L Chloride 93 L (98-109) mEq/L Carbon Dioxide 26 (19-29) mEq/L BUN 6 L (8-26) mg/dL Creatinine 2.35 H (0.72-1.25) mg/dL Est GFR ( Amer) 36 L (> 60) Est GFR (Non-Af Amer) 30 L (> 60) BUN/Creatinine Ratio 3 L (6-26) Glucose 85 (70-99) mg/dL Calculated Osmolality 259 L (280-300) Calcium 8.1 L (8.6-10.8) mg/dL Troponin I 0.03 (0-0.03) ng/mL B-Natriuretic Peptide (0-100) pg/mL 08/21/17 Range/Units 04:51 WBC (4.3-11.1) K/mcL RBC (4.19-5.50) M/mcL Hgb (12.9-16.9) g/dL Hct (37.5-50.1) % MCV (83.0-100.0) fL MCH (28.0-33.3) pg MCHC (31.6-35.5) g/dL RDW (11.5-14.5) % Plt Count (140-400) K/mcL MPV (9.4-12.4) fL Immature Gran % (0-4) % Seg Neutrophils % % Lymphocytes % % Monocytes % % Eosinophils % % Basophils % % Neutrophils # (1.6-8.9) K/mcL Lymphocytes # (0.6-4.6) K/mcL Monocytes # (0.0-1.3) K/mcL Eosinophils # (0.0-0.6) K/mcL Basophils # (0.0-0.2) K/mcL Sodium (136-145) mEq/L Potassium (3.5-4.5) mEq/L Chloride (98-109) mEq/L Carbon Dioxide (19-29) mEq/L BUN (8-26) mg/dL Creatinine (0.72-1.25) mg/dL Est GFR ( Amer) (> 60) Est GFR (Non-Af Amer) (> 60) BUN/Creatinine Ratio (6-26) Glucose (70-99) mg/dL Calculated Osmolality (280-300) Calcium (8.6-10.8) mg/dL Troponin I (0-0.03) ng/mL B-Natriuretic Peptide 1728 H (0-100) pg/mL - Radiology Data Radiology results reviewed: Yes I reviewed the patient's radiology results. - EKG Data EKG #1 EKG attestation: Yes I reviewed and interpreted this EKG. EKG shows normal: sinus rhythm Rate: tachycardia Rhythm: NSR Medon/QRS: normal When compared to previous EKG there are: no significant changes Interpretation: no acute changes Critical Care Time Critical Care Time: Yes Total Critical Care Time: 40 Attestation: Critical care performed: Time is exclusive of separately billable procedures. Time includes: direct patient care, patient reassessment, coordination of patient care, interpretation of data (laboratory data, radiology data, and respiratory data), review of patient's medical records, medical consultation and documentation of patient care. Procedures included in critical care time: Procedures excluded from critical care time: Attestation Statement - Attestation Attestation: I, Chava Erazo MD, personally evaluated this patient and discussed their management with the resident physician. I reviewed the resident's note and agree with the documented findings, medical decision making, and plan of care. 52-year-old male presents to the emergency department with a complaint of respiratory distress. Patient has end-stage renal disease on hemodialysis. His last dialysis was yesterday. He has a history of CHF with recurrent exacerbations. He awoke tonight with difficulty breathing. No increased cough or fever. No chest pain. On examination patient is well-developed well-nourished male in moderate history distress. He is alert. There is no cyanosis or diaphoresis. Chest is nontender to palpation. Breath sounds are decreased bilaterally with moist bibasilar rales and scattered bilateral wheezes. Heart regular rate and rhythm. Abdomen soft with normal bowel sounds. Labs reviewed. EKG shows sinus tachycardia. Chest x-ray shows moderate right pleural effusion with adjacent airspace disease, unchanged. Patient placed on BiPAP. He received IV Lasix and nitroglycerin drip. The hospitalist, Dr. Cohen, was consulted and accepted admission of the patient.
[2017-08-21 04:57] LABS: Basophils % 0.5 %; Eosinophils # 0.2 K/mcL (0.0-0.6); Eosinophils % 2.1 %; Hematocrit 28.3 % (37.5-50.1); Hemoglobin 9.5 g/dL (12.9-16.9); Immature Granulocytes % 0.6 % (0-4); Lymphocytes # 1.3 K/mcL (0.6-4.6); Lymphocytes % 16.6 %; Mean Corpuscular HGB Conc 33.6 g/dL (31.6-35.5); Mean Corpuscular Volume 86.3 fL (83.0-100.0); Mean Platelet Volume 9.1 fL (9.4-12.4); Monocytes % 12.2 %; Neutrophils # 5.4 K/mcL (1.6-8.9); Platelet Count 213 K/mcL (140-400); Red Blood Count 3.28 M/mcL (4.19-5.50); Red Cell Distribution Width 13.7 % (11.5-14.5)
[2017-08-21 05:11] LABS: Calcium 8.1 mg/dL (8.6-10.8); Potassium 3.6 mEq/L (3.5-4.5)
--- NOTE | 2017-08-21 05:58 | Internal Med History&Physical ---
Date of Encounter: 08/21/17 Time of Encounter: 05:58 Assessment and Plan (1) Pulmonary edema Current visit: Yes Status: Acute [place] volume overload. Patient is 5 kg above his right leg. 1st has been notified dialyzed patient as soon as possible. Patient is currently a nitroglycerin drip. Is to make small amount of urine will give 100 mg IV Lasix. Patient is currently on BiPAP. Qualifiers: Qualified Code(s): J81.0 - Acute pulmonary edema (2) ESRD (end stage renal disease) Current visit: Yes Status: Acute Dialyze Friday. He will dialyze today as he still significantly above his dry weight and is in pulmonary edema (3) Acute respiratory failure with hypoxia Current visit: Yes Status: Acute Currently on BiPAP. Internal Medicine - H&P: HPI Chief complaint: sob History of present illness: Mr. Castro is a 52 year old male presents to the emergency room today with the main completion of shortness of breath. Tonight, patient started experiencing sudden onset shortness of breath. Patient called paramedics and was placed immediately on BiPAP due to increased work of breathing. Patient dialyzes Friday. He Mentioned that he dialyzed yesterday. However patients mentioned that his dry weight is 75 kg and he is approximately 5 kg above his dry weight. Patient denies any sputum production fevers chills. No chest pain. Past Med Surg Social Fam HX - Past Medical History Medical history: arthritis, CHF, COPD, coronary artery disease, dialysis, GERD, hyperlipidemia, hypertension, myocardial infarction, osteoporosis, peripheral artery disease, renal disease, other Psychiatric history: anxiety, bipolar, depression, other - Past Surgical History Surgical History: non-contributory, vascular surgery, other - Social History Smoking Status: Current every day smoker Smokeless Tobacco Status: Yes Alcohol use: none Drug use: marijuana - Family History Mother Living Status: Hx Family Cardiac Disorders: Yes Father Living Status: Hx Family Cardiac Disorders: Yes Hx Family Cancer: Yes Internal Medicine - H&P: Meds Citalopram [CeleXA] 40 mg PO DAILY 10/02/15 [History] Fluticasone/Salmeterol [Advair 250-50 Diskus] 1 puff IH BID 10/02/15 [History] Furosemide [Lasix] 40 mg PO BID 10/02/15 [History] Lidocaine Patch [Lidoderm 5% patch] 1 patch TP DAILY 10/02/15 [History] hydrOXYzine HCl [Hydroxyzine HCl] 25 mg PO TID 10/02/15 [History] Isosorbide MONOnitrate (24 HR) [Imdur] 30 mg PO DAILY #30 tab.er.24h 09/03/16 [ Rx] Ferrous Sulfate [Iron] 325 mg PO DAILY 10/04/16 [History] Ergocalciferol (VITAMIN D2) [Vitamin D2] 50,000 unit PO QWEEK 11/03/16 [History] Lisinopril [Zestril] 10 mg PO DAILY 11/03/16 [History] Simvastatin [Zocor] 40 mg PO HS 11/03/16 [History] Tizanidine HCl [Zanaflex] 4 mg PO TID 11/03/16 [History] Ipratropium/Albuterol Sulfate [Combivent Respimat Inhal [place]] 1 puff IH QID 04/28 [History] Aspirin 81 mg PO DAILY #30 tab.chew 11/24/16 [Rx] Albuterol Sulfate [Proair Hfa] 2 puff IH Q4H PRN 05/08/17 [History] BuPROPion SR (12 HR) [Wellbutrin SR] 150 mg PO BID 05/08/17 [History] Calcium Acetate [Phos-LO] 1,334 mg PO TIDWM 05/08/17 [History] Mupirocin [Bactroban Oint] 1 appl TP BID 05/08/17 [History] Ondansetron HCl [Zofran] 4 mg PO BID 05/08/17 [History] Sevelamer [Renvela] 2,400 mg PO TIDWM 05/08/17 [History] Tramadol HCl [Ultram] 50 mg PO TID PRN 05/08/17 [History] Ipratropium/Albuterol Neb [Duoneb] 3 ml IH Q4HR #90 vial.neb 07/25/17 [Rx] PrednisoLONE [Millipred] 30 mg PO DAILY #10 tablet 07/25/17 [Rx] Carvedilol 12.5 mg PO BID 07/30/17 [History] Varenicline Tartrate [Chantix] 1 tab PO AD 07/30/17 [History] Gabapentin [Neurontin] 300 mg PO TID capsule 08/12/17 [Rx] 3 Allergy/AdvReac Type Severity Reaction Status Date / Time bee venom protein (honey bee) AdvReac Swelling Verified 06/30/17 04:08 of Lip/Tongue/Throat potassium AdvReac Vomiting Verified 06/30/17 04:08 prednisone AdvReac Vomiting Verified 06/30/17 04:08 All Systems PM: A 10-system review of systems was performed and is negative for pertinent findings except as documented above in the HPI. Review of systems: 10 point review of systems is negative except for HPI - Constitutional Vitals: Temp Pulse Resp BP Pulse Ox 97.5 F L 74 17 137/91 100 08/21/17 03:48 08/21/17 05:31 08/21/17 05:31 08/21/17 05:31 08/21/17 05:31 Exam: Gen.: patient is alert oriented times 3 cardiac: normal S1 S2 no additional sounds or murmurs chest: bilateral basal rales abdomen soft nontender nondistended normal bowel sounds lower extremity 1+ swelling. Neuro: no new focal deficits Internal Med - H&P Results - Labs CBC & Chem 7: 08/21/17 04:51 08/21/17 04:51 Labs: Short CBC 08/21/17 Range/Units 04:51 WBC 8.0 (4.3-11.1) K/mcL Hgb 9.5 L (12.9-16.9) g/dL Hct 28.3 L (37.5-50.1) % Plt Count 213 (140-400) K/mcL Neutrophils # 5.4 (1.6-8.9) K/mcL BMP 08/21/17 04:51 Sodium 126 L Potassium 3.6 Chloride 93 L Carbon Dioxide 26 BUN 6 L Creatinine 2.35 H Glucose 85 Calcium 8.1 L Cardiac Enzymes 08/21/17 Range/Units 04:51 Troponin I 0.03 (0-0.03) ng/mL - Impressions ITS Impressions Chest X-Ray 08/21/17 03:55 IMPRESSION: Moderate right pleural effusion with adjacent airspace disease, unchanged. D/ / Armando Jorge MD / Armando Jorge MD Interpreting Provider: Armando Jorge MD
[2017-08-21] MEDS ORDERED: 0.9 % Sodium Chloride 250 ML IVC PRN (07:21)
[2017-08-21] MEDS ORDERED: Albumin 25% 12.5gm/50mL 12.5 GM/50 ML IV.SOLN IVPB PRN (07:21)
[2017-08-21] MEDS ORDERED: *HR* Heparin 10,000 UNIT/10 ML VIAL IV PRN (07:21)
--- NOTE | 2017-08-21 08:07 | Internal Med Progress Note ---
<Miko Galo - Last Filed: 08/21/17 17:18> Date of Encounter: 08/21/17 Time of Encounter: 08:03 - Assessment and plan (1) Pulmonary edema Current Visit: No Status: Acute Assessment and plan: Dialysis today; pt stable, on bipap, RT to wean to nasal cannula per pt tolerance. CXR shows L-sided plural effusion Possible loculation, CT ordered, w/o contrast Pending CT, may or may not need thoracentesis Qualifiers: Chronicity: acute Qualified Code(s): J81.0 - Acute pulmonary edema (2) ESRD (end stage renal disease) on dialysis Current Visit: No Status: Chronic Assessment and plan: Dialysis today. Is on MWF schedule. Monitor volume status, respiratory. (3) Elevated troponin Current Visit: Yes Status: Acute Assessment and plan: Trop of .03, .05 likely demand ischemia. Though slight increase, ACS unlikely. Will monitor clinically. (4) Acute respiratory failure with hypoxia Current Visit: No Status: Acute Assessment and plan: Tolerating 3L nasal cannula after dialysis and volume correction. Monitor, dialysis again tomorrow per Nephro. (5) CAD (coronary artery disease) Current Visit: No Status: Chronic Assessment and plan: No chest pain. Troponin .05, likely type 2 (demand) Cont Zocor, Zestril, Aspirin Qualifiers: Coronary Disease-Associated Artery/Lesion type: [place] artery [place] vs. transplanted heart: [place] heart Associated angina: without angina Qualified Code(s): I25.10 - Atherosclerotic heart disease of [place] coronary artery without angina pectoris (6) CHF exacerbation Current Visit: No Status: Acute Assessment and plan: Fluid overloaded, dialysis today and tomorrow. Was on bipap, after dialsysis able to have optimal sats on 3L nasal cannula. Qualifiers: Congestive heart failure type: combined Qualified Code(s): I50.43 - Acute on chronic combined systolic (congestive) and diastolic (congestive) heart failure (7) Fluid overload Current Visit: No Status: Acute Assessment and plan: as above Qualifiers: Hypervolemia type: other Qualified Code(s): E87.79 - Other fluid overload (8) DVT prophylaxis Current Visit: No Status: Acute Assessment and plan: Heparin 5000U sq q12 - Subjective Interval history: Interval History: PMH COPD, CHF, ESRD, admitted for acute respiratory failure likely secondary to CHF exacerbation with volume overload. Today: Mild pain after hemodialysis, continued home meds, prn tylenol. No chest pain, tolerating bipap. - Constitutional Vitals: Temp Pulse Resp BP Pulse Ox 97.5 F L 76 20 170/94 97 08/21/17 03:48 08/21/17 07:52 08/21/17 07:52 08/21/17 07:52 08/21/17 07:52 General appearance: Present: A&O X 3, no acute distress - Respiratory Respiratory exam: Present: decreased breath sounds. Absent: rhonchi Additional comments: decreased lung excursion bilaterally. - Cardiovascular Cardiovascular exam: Present: RRR, +S1, +S2 - Extremities Exam Extremities exam: Present: warm. Absent: cyanotic - Skin Skin exam: Present: normal color. Absent: cyanosis Internal Medicine: Result - Labs CBC & Chem 7: 08/21/17 04:51 08/21/17 04:51 Consult Discharge Plan - Plan Referrals: Nallely Hanna [employer]ER [Primary Care Provider] - (sent web request on 08-21-17 @ 2729) <Lex Orellana - Last Filed: 08/21/17 17:38> Date of Encounter: 08/21/17 - Constitutional Vitals: Temp Pulse Resp BP Pulse Ox 97.9 F 66 16 111/68 95 08/21/17 16:25 08/21/17 17:10 08/21/17 16:30 08/21/17 16:25 08/21/17 17:10 Internal Medicine: Result - Labs CBC & Chem 7: 08/21/17 04:51 08/21/17 04:51 Labs: Cardiac Enzymes 08/21/17 Range/Units 10:46 Troponin I 0.05 H* (0-0.03) ng/mL - Impressions Impressions Chest CT 08/21/17 14:30 IMPRESSION: Mild interstitial pulmonary edema with small right pleural effusion without definite loculation. 14 mm pneumatocele within atelectatic right lower lobe. Questionable debris/mycetoma within the pneumatocele. Recommend follow-up CT in 6-8 weeks. Scattered subcentimeter pulmonary nodules, at least 1 of which is stable dating back through 04/05/2014. Other nodules measuring up to 8 mm were outside the field of view on prior exam, however are favored to represent reactive parenchymal lymph nodes given morphology and septal/subpleural location. Prior cross-sectional imaging of the chest would be helpful for comparison, if available. Otherwise, nodules may also be reassessed at follow-up of pneumatocele. Multivessel coronary artery atherosclerotic calcifications, greater than expected for age and most severe along the left main and proximal right coronary arteries. Correlate with lipid profile. RECOMMENDATIONS: Follow-up CT in 6-8 weeks to reassess right lower lobe pneumatocele. Pulmonary nodules may also be reassessed at that time. D/ / 08/21/2017 16:30:18 Abraham Stinson / kaylee Interpreting Provider: Abraham Stinson - Attending Attestation I conducted a face to face diagnostic evaluation of this patient and my medical decision-making was reviewed with the Resident Physician, Dr. Miko Galo. I agree with the documented findings, disposition and treatment plan as described except to the extent set forth below: Upon my review CT of the chest reveals moderate right pleural effusion with underlying atelectasis. Plan fluid removal with hemodialysis. I personally emphasize the importance of dietary compliance.
[2017-08-21] MEDS ORDERED: 0.9 % Sodium Chloride 1,000 ML ONE (09:09)
[2017-08-21] MEDS: Ipratropium/Albuterol Neb 3 ML IH SCH ×4 (11:31→23:03)
--- NOTE | 2017-08-21 11:49 | Nephrology Consult Note ---
Date of Encounter: 08/21/17 Time of Encounter: 11:46 Assessment and Plan (1) ESRD (end stage renal disease) on dialysis Current Visit: No Status: Acute Dialysis again today, have already removed 5 kilos Will plan for HD again tomorrow Continue renal diet Fluid restriction 1.5 liters/day Strict I/Os Avoid nephrotoxins (2) Acute respiratory failure with hypoxia Current Visit: Yes Status: Acute Fluid removal with dialysis should help per primary team History of Present Illness - Reason for Consult Consult date: 08/21/17 - Chief Complaint pulmonary edema, ESRD on dialysis - History of Present Illness Mr. Castro is a 52 year old male well known to our practice with a PMH of arthritis, CHF, COPD, coronary artery disease, dialysis, GERD, hyperlipidemia, hypertension, myocardial infarction, osteoporosis, peripheral artery disease, ESRD on dialysis, bipolar, and depression who presented to the emergency room with c/o shortness of breath. Patient has frequent admissions for fluid overload. States he received his full dialysis treatment at [facility] yesterday. Past Med Surg Social Fam HX - Past Medical History Medical history: arthritis, CHF, COPD, coronary artery disease, dialysis, GERD, hyperlipidemia, hypertension, myocardial infarction, osteoporosis, peripheral artery disease, renal disease, other Psychiatric history: anxiety, bipolar, depression, other - Past Surgical History Surgical History: non-contributory, vascular surgery, other - Social History Smoking Status: Current every day smoker Smokeless Tobacco Status: Yes Alcohol use: none Drug use: marijuana - Family History Mother Living Status: Hx Family Cardiac Disorders: Yes Father Living Status: Hx Family Cardiac Disorders: Yes Hx Family Cancer: Yes Medications and Allergies Citalopram [CeleXA] 40 mg PO DAILY 10/02/15 [History] Fluticasone/Salmeterol [Advair 250-50 Diskus] 1 puff IH BID 10/02/15 [History] Furosemide [Lasix] 40 mg PO BID 10/02/15 [History] Lidocaine Patch [Lidoderm 5% patch] 1 patch TP DAILY 10/02/15 [History] hydrOXYzine HCl [Hydroxyzine HCl] 25 mg PO TID 10/02/15 [History] Isosorbide MONOnitrate (24 HR) [Imdur] 30 mg PO DAILY #30 tab.er.24h 11/22/16 [ Rx] Ferrous Sulfate [Iron] 325 mg PO DAILY 10/04/16 [History] Ergocalciferol (VITAMIN D2) [Vitamin D2] 50,000 unit PO QWEEK 11/03/16 [History] Lisinopril [Zestril] 10 mg PO DAILY 11/03/16 [History] Simvastatin [Zocor] 40 mg PO HS 11/03/16 [History] Tizanidine HCl [Zanaflex] 4 mg PO TID 11/03/16 [History] Ipratropium/Albuterol Sulfate [Combivent Respimat Inhal [place]] 1 puff IH QID 04/28 [History] Aspirin 81 mg PO DAILY #30 tab.chew 11/24/16 [Rx] Albuterol Sulfate [Proair Hfa] 2 puff IH Q4H PRN 05/08/17 [History] BuPROPion SR (12 HR) [Wellbutrin SR] 150 mg PO BID 05/08/17 [History] Calcium Acetate [Phos-LO] 1,334 mg PO TIDWM 05/08/17 [History] Mupirocin [Bactroban Oint] 1 appl TP BID 05/08/17 [History] Ondansetron HCl [Zofran] 4 mg PO BID 05/08/17 [History] Sevelamer [Renvela] 2,400 mg PO TIDWM 05/08/17 [History] Tramadol HCl [Ultram] 50 mg PO TID PRN 05/08/17 [History] Ipratropium/Albuterol Neb [Duoneb] 3 ml IH Q4HR #90 vial.neb 07/25/17 [Rx] Carvedilol 12.5 mg PO BID 07/30/17 [History] Varenicline Tartrate [Chantix] 1 tab PO AD 07/30/17 [History] Gabapentin [Neurontin] 300 mg PO TID capsule 08/12/17 [Rx] 3 Allergy/AdvReac Type Severity Reaction Status Date / Time bee venom protein (honey bee) AdvReac Swelling Verified 06/30/17 04:08 of Lip/Tongue/Throat potassium AdvReac Vomiting Verified 06/30/17 04:08 prednisone AdvReac Vomiting Verified 06/30/17 04:08 Review of Systems All Systems: reviewed and no additional remarkable complaints except as stated Constitutional: no fatigue, no fever(s) Cardiovascular: dyspnea, dyspnea on exertion, leg edema, no chest pain Respiratory: dyspnea Gastrointestinal: no nausea, no vomiting Neurological: no behavioral changes Exam - Vital Signs Vital signs: Initial Vital Signs Temp Pulse Resp BP Pulse Ox 97.5 F L 105 24 177/103 100 08/21/17 03:48 08/21/17 03:48 08/21/17 03:48 08/21/17 03:48 08/21/17 03:48 Vital Signs - Last 8 Hours Temp Pulse Resp BP Pulse Ox 08/21/17 11:15 163/91 08/21/17 10:45 154/88 08/21/17 10:15 153/88 08/21/17 09:45 162/95 08/21/17 09:15 169/86 08/21/17 08:45 97.1 F L 19 171/97 08/21/17 07:52 76 20 170/94 97 08/21/17 07:07 20 154/93 08/21/17 07:00 74 14 154/93 97 Intake and Output 08/20/17 08/21/17 08/21/17 23:59 07:59 15:59 Intake Total 600 / 600 Balance 600 / 600 Intake: Oral 0 / 0 Other Intake, Rinseback and Flushes 600 / 600 Other: Hemodialysis Net Fluid Removed 4008 (mL) - General Appearance General appearance: chronically ill EENT: ATNC, mucous membranes moist, hearing intact, vision intact Neck: supple Respiratory: clear Cardiology: edema, normal S1, normal S2 - Dialysis Access Dialysis Vascular Access: Venous Catheter Gastrointestinal: no tenderness, no guarding Integumentary: warm and dry Neurologic: alert and oriented x3 Psychiatric: mood/affect appropriate, cooperative Results - Lab Results 08/21/17 04:51 08/21/17 04:51 Most recent lab results Calcium 8.1 mg/dL (8.6-10.8) L 08/21/17 04:51 Consult Discharge Plan - Plan Referrals: Nallely Hanna MEASUREMENT ADVISOR [Primary Care Provider] - (sent web request on 08-21-17 @ 0018)
[2017-08-21] MEDS: BuPROPion SR (12 HR) 150 MG TABLET PO SCH ×2 (12:52→20:47)
[2017-08-21] MEDS: Aspirin 81 MG TAB.CHEW PO SCH (12:52)
[2017-08-21] MEDS: Furosemide 40 MG/4 ML VIAL IVP SCH ×2 (12:52→20:47)
[2017-08-21] MEDS ORDERED: Acetaminophen 325 MG TABLET PO PRN (13:15)
[2017-08-21] MEDS: traMADol 50 MG TABLET PO PRN ×2 (14:06→20:48)
[2017-08-21] MEDS: tiZANidine 4 MG TABLET PO SCH ×2 (14:06→20:48)
[2017-08-21] MEDS ORDERED: Gabapentin 300 MG CAPSULE PO SCH (15:00)
[2017-08-21] MEDS: *HR* Heparin 5,000 UNIT/ML VIAL SQ SCH (17:07)
--- NOTE | 2017-08-21 18:24 | Electrocardiograph Report ---
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
[2017-08-22] MEDS: Ipratropium/Albuterol Neb 3 ML IH SCH ×4 (03:40→16:12)
[2017-08-22 05:24] LABS: Basophils % 0.6 %; Eosinophils # 0.2 K/mcL (0.0-0.6); Hemoglobin 9.7 g/dL (12.9-16.9); Immature Granulocytes % 0.1 % (0-4); Lymphocytes # 2.8 K/mcL (0.6-4.6); Lymphocytes % 39.7 %; Mean Corpuscular HGB Conc 32.3 g/dL (31.6-35.5); Mean Corpuscular Hemoglobin 28.4 pg (28.0-33.3); Mean Platelet Volume 9.9 fL (9.4-12.4); Monocytes # 0.8 K/mcL (0.0-1.3); Monocytes % 11.5 %; Neutrophils # 3.2 K/mcL (1.6-8.9); Platelet Count 223 K/mcL (140-400); Red Blood Count 3.41 M/mcL (4.19-5.50); Red Cell Distribution Width 14.3 % (11.5-14.5); Segmented Neutrophils % 45.1 %
[2017-08-22 05:51] LABS: Calcium 8.4 mg/dL (8.6-10.8)
[2017-08-22] MEDS: *HR* Heparin 5,000 UNIT/ML VIAL SQ SCH (06:33)
[2017-08-22] MEDS ORDERED: 0.9 % Sodium Chloride 250 ML IVC PRN (07:55)
[2017-08-22] MEDS: tiZANidine 4 MG TABLET PO SCH ×2 (08:22→16:43)
[2017-08-22] MEDS: Aspirin 81 MG TAB.CHEW PO SCH (08:22)
[2017-08-22] MEDS: BuPROPion SR (12 HR) 150 MG TABLET PO SCH (08:22)
[2017-08-22] MEDS: Furosemide 40 MG/4 ML VIAL IVP SCH (09:00)
[2017-08-22] MEDS ORDERED: Gabapentin 300 MG CAPSULE PO SCH ×2 (09:00→21:00)
--- NOTE | 2017-08-22 09:22 | Nephrology Progress Note ---
Date of Encounter: 08/22/17 Time of Encounter: 09:22 - Assessment and Plan (1) ESRD (end stage renal disease) on dialysis Current Visit: No Status: Chronic HD today for clearance and would be okay for D/C from a nephrology perspective. Yesterday, though I was not on-call, I helped place HD orders for my colleague yesterday morning. Today's HD is resume his chronic schedule. (2) Acute respiratory failure with hypoxia Current Visit: Yes Status: Acute Improved with fluid removal. (3) Fluid overload Current Visit: No Status: Acute Recurrent from dietary indiscretion. Improved s/p a medically necessary HD yesterday. Qualifiers: Hypervolemia type: other Qualified Code(s): E87.79 - Other fluid overload (4) H/O noncompliance with medical treatment, presenting hazards to health Current Visit: No Status: Acute Hx of chronic noncompliance with a high hospital readmission rate. High risk for readmission. I spent >50% of two encounters (first on the floor and then again in the HD unit for a totoal of 20min) counseling him on dietary mgt including sodium and water restrictions to help minimize future readmissions. (5) Anemia in ESRD (end-stage renal disease) Current Visit: No Status: Chronic Goal Hgb is 10-11. While admitted, I've added Aranesp, to help improve his Anemia. Upon discharge he will not need it prescribed, since his chronic dialysis unit already provides TAISHA as an outpt. Subjective Principal diagnosis: ESRD with fluid overload; Noncompliance Interval history: He was s/e this AM. He reported feeling much better with far less fluid today. He denied active shortness of breath. He did not affirm active cramping or N/V/ D or CP. Objective - Vital Signs Vital signs: Vital Signs Temp Pulse Resp BP Pulse Ox 08/22/17 08:22 16 91 08/22/17 06:44 97.9 F 74 19 146/86 92 08/22/17 04:56 98.5 F 18 18 137/75 94 08/21/17 23:35 98.2 F 68 18 137/75 91 08/21/17 23:06 16 94 08/21/17 19:49 18 97 08/21/17 19:43 98.2 F 62 17 137/75 93 08/21/17 17:10 66 95 08/21/17 16:30 16 97 08/21/17 16:25 97.9 F 59 18 111/68 95 08/21/17 12:25 97.5 F L 18 146/81 08/21/17 12:15 144/94 08/21/17 11:45 150/85 08/21/17 11:15 163/91 08/21/17 10:45 154/88 08/21/17 10:15 153/88 08/21/17 09:45 162/95 Intake and Output 08/21/17 08/22/17 08/22/17 23:59 07:59 15:59 Intake Total 340 / 340 0 / 0 Output Total 350 / 350 0 / 0 Balance - -10 0 / 0 Intake: IV Fluids 100 / 100 Nitroglycerin Premix 25 MG/250 100 / 100 ML 25 mg In 250 ml @ 10 MCG/MIN 6 mls/hr IVC .Q24H ROWAN Rx#: [id number] Oral 240 / 240 0 / 0 Output: Urine 350 / 350 0 / 0 Other: Meal Dinner Percent of Meal Consumed 100% Weight 79.4 kg Blood Glucose* 89 108 Patient Weight 08/22/17 23:59 Weight 79.4 kg - General Appearance General appearance: Present: chronically ill, fatigue, frail Exam: Appears older than state age EENT: Present: ATNC, PERRL, mucous membranes moist Neck: Present: supple Respiratory: Present: clear Cardiology: Present: edema (only trace pedal edema with wrinkles noted in his pretibial region (suggesting recent improvement from edema)), normal S1, normal S2 Dialysis Vascular Access: Venous Catheter (Left TDC without dressing C/D/I. Tunnel was NTTP) Gastrointestinal: Present: normoactive bowel sounds, no guarding Integumentary: Present: no rash, warm and dry Neurologic: Present: no focal deficit, no asterixis, alert and oriented x3 Musculoskeletal: Present: no erythema, no cyanosis, no clubbing Psychiatric: Present: mood/affect appropriate, cooperative - Lab 08/22/17 04:34 08/22/17 04:34 Most recent lab results Calcium 8.4 mg/dL (8.6-10.8) L 08/22/17 04:34 - VTE Documentation of Mechanical Device: Intermittent pneumatic compression device Consult Discharge Plan - Plan Referrals: Nallely Hanna, MEKHI [Primary Care Provider] - (sent web request on 08-21-17 @ 3291)
[2017-08-22 13:19] VITALS: BP 127/90
--- NOTE | 2017-08-22 15:17 | Discharge Summary ---
<Miko Galo - Last Filed: 08/22/17 15:42> Date of Encounter: 08/22/17 Time of Encounter: 09:45 - Discharge Diagnosis (1) Acute respiratory failure with hypoxia Priority: Primary Status: Acute (2) Pulmonary edema Priority: Secondary Status: Acute Qualifiers: Chronicity: acute Qualified Code(s): J81.0 - Acute pulmonary edema (3) ESRD (end stage renal disease) on dialysis Priority: Secondary Status: Chronic (4) Elevated troponin Priority: Secondary Status: Acute (5) CAD (coronary artery disease) Priority: Secondary Status: Chronic Qualifiers: Coronary Disease-Associated Artery/Lesion type: [place] artery [place] vs. transplanted heart: [place] heart Associated angina: without angina Qualified Code(s): I25.10 - Atherosclerotic heart disease of [place] coronary artery without angina pectoris (6) CHF exacerbation Priority: Secondary Status: Acute Qualifiers: Congestive heart failure type: combined Qualified Code(s): I50.43 - Acute on chronic combined systolic (congestive) and diastolic (congestive) heart failure (7) Fluid overload Priority: Secondary Status: Acute Qualifiers: Hypervolemia type: other Qualified Code(s): E87.79 - Other fluid overload (8) DVT prophylaxis Priority: Secondary Status: Acute - Discharge Medications Home Medications: Citalopram [CeleXA] 40 mg PO DAILY 10/02/15 [History] Fluticasone/Salmeterol [Advair 250-50 Diskus] 1 puff IH BID 10/02/15 [History] Furosemide [Lasix] 40 mg PO BID 10/02/15 [History] Lidocaine Patch [Lidoderm 5% patch] 1 patch TP DAILY 10/02/15 [History] hydrOXYzine HCl [Hydroxyzine HCl] 25 mg PO TID 10/02/15 [History] Isosorbide MONOnitrate (24 HR) [Imdur] 30 mg PO DAILY #30 tab.er.24h 09/03/16 [ Rx] Ferrous Sulfate [Iron] 325 mg PO DAILY 10/04/16 [History] Ergocalciferol (VITAMIN D2) [Vitamin D2] 50,000 unit PO QWEEK 11/03/16 [History] Lisinopril [Zestril] 10 mg PO DAILY 11/03/16 [History] Simvastatin [Zocor] 40 mg PO HS 11/03/16 [History] Tizanidine HCl [Zanaflex] 4 mg PO TID 11/03/16 [History] Ipratropium/Albuterol Sulfate [Combivent Respimat Inhal [place]] 1 puff IH QID 04/28 [History] Aspirin 81 mg PO DAILY #30 tab.chew 11/24/16 [Rx] Albuterol Sulfate [Proair Hfa] 2 puff IH Q4H PRN 05/08/17 [History] BuPROPion SR (12 HR) [Wellbutrin SR] 150 mg PO BID 05/08/17 [History] Calcium Acetate [Phos-LO] 1,334 mg PO TIDWM 05/08/17 [History] Mupirocin [Bactroban Oint] 1 appl TP BID 05/08/17 [History] Ondansetron HCl [Zofran] 4 mg PO BID 05/08/17 [History] Sevelamer [Renvela] 2,400 mg PO TIDWM 05/08/17 [History] Tramadol HCl [Ultram] 50 mg PO TID PRN 05/08/17 [History] Ipratropium/Albuterol Neb [Duoneb] 3 ml IH Q4HR #90 vial.neb 07/25/17 [Rx] Carvedilol 12.5 mg PO BID 07/30/17 [History] Varenicline Tartrate [Chantix] 1 tab PO AD 07/30/17 [History] Gabapentin [Neurontin] 300 mg PO TID capsule 08/12/17 [Rx] Allergies/Adverse Reactions: 3 Allergy/AdvReac Type Severity Reaction Status Date / Time bee venom protein (honey bee) AdvReac Swelling Verified 06/30/17 04:08 of Lip/Tongue/Throat potassium AdvReac Vomiting Verified 06/30/17 04:08 prednisone AdvReac Vomiting Verified 06/30/17 04:08 Procedures/tests Complete & Pending: Procedures Performed prior 72 hours Category Date Time Status CT chest w/o contrast [CT chest wo con] [CT] Routine Cat Scan 08/21/17 14:30 Draft Date of admission: 08/21/17 06:14 Primary care physician: Nallely Hanna CNP Consults: 08/21/17 07:30 Consult to Dialysis [CONS] ONCE 08/22/17 08:00 Consult to Dialysis [CONS] ONCE - Patient Status Disposition: Home, Self-Care Condition: Good Overall status at discharge: patient is progressing back to baseline - Discharge Instructions Follow Up With: Nallely Hanna CNP [Primary Care Provider] - 08/29/17 2:00 pm () Additional Instructions: Prescription for home oxygen concentrator and portable O2 tank added. Pt to follow-up with PCP, to discuss ways to be compliant to medications, smoking cessation, re-admission reduction. - Diet and Activity Activity: increase activity as tolerated Diet: low salt diet Hospital course: Mr. Castro is a 52 year old male, significant past medical history of ESRD on dialysis MWF, CHF, CAD, who presented to ED with shortness of breath. He was admitted for acute respiratory failure with hypoxia, secondary to CHF exacerbation with volume overload. He underwent dialysis x2 to remove a total of 8304 net fluid. Patient improved over the course of his hospital stay on RT, Bipap, Lasix, able to tolerate bipap weaning and transition to 2L nasal cannula. CT ordered, showed small R sided pleural effusion. Patient discharged with prescription for home O2 and portable. - Time Spent with Patient Total time spent providing and/or coordinating discharge services: - Constitutional Vitals: Temp Pulse Resp BP Pulse Ox 97.4 F L 60 18 127/90 98 08/22/17 09:05 08/22/17 13:17 08/22/17 13:17 08/22/17 13:24 08/22/17 13:17 General appearance: Present: A&O X 3, no acute distress - Head Head exam: Present: atraumatic - Respiratory Respiratory exam: Present: decreased breath sounds (R side > L, less excursion of chest wall R) - Cardiovascular Cardiovascular exam: Present: RRR, +S1, +S2 - GI/Abdominal GI/Abdominal exam: Present: no peritoneal signs. Absent: tenderness - VTE Documentation of Mechanical Device: Intermittent pneumatic compression device <Lex Orellana - Last Filed: 08/22/17 18:27> Date of Encounter: 08/22/17 Procedures/tests Complete & Pending: Procedures Performed prior 72 hours Category Date Time Status CT chest w/o contrast [CT chest wo con] [CT] Routine Cat Scan 08/21/17 14:30 Draft Date of admission: 08/21/17 06:14 Primary care physician: Nallely Hanna CNP Consults: 08/21/17 07:30 Consult to Dialysis [CONS] ONCE 08/22/17 08:00 Consult to Dialysis [CONS] ONCE Hospital course: Mr. Castro is a 52 year old male - Time Spent with Patient Total time spent providing and/or coordinating discharge services: - Constitutional Vitals: Temp Pulse Resp BP Pulse Ox 97.6 F 60 18 127/90 92 08/22/17 12:20 08/22/17 13:17 08/22/17 16:13 08/22/17 13:24 08/22/17 16:29 - Attending Attestation I conducted a face to face diagnostic evaluation of this patient and my medical decision-making was reviewed with the Resident Physician, Dr. Miko Galo. I agree with the documented findings, disposition and treatment plan as described except to the extent set forth below: Patient reports no shortness of breath or chest pain. He is currently at baseline. Heart is regular, lungs are clear. I have educated the patient about importance of compliance with a low sodium restricted diet. He is medically stable for discharge home.
[2017-08-24 12:55] LABS: CK-BB (CK isoenzymes) 0 % (0-0); CK-MB (CK isoenzymes) 0 % (0-4); CK-MM (CK-isoenzymes) 100 % (96-100)
[2017-08-25 09:33] LABS: CK Total (Ck Isoenzymes) 196 U/L (20-200)
== END 2017-08-22 17:42 | disposition home or self-care (01) | DRG 194 ==
LOC: EMEROO 03:47 → 2NNU 06:14
PROVIDERS: ADMIT Hospitalist; ATTEND Internal Medicine

== ENCOUNTER 2017-08-24 05:09 | Inpatient (IN) ==
--- NOTE | 2017-08-24 05:12 | Emergency Department Note ---
Disposition Clinical Impression: Acute respiratory failure, CHF (congestive heart failure), HTN (hypertension), ESRD (end stage renal disease) on dialysis Disposition: Admitted As Inpatient Condition: Fair General Adult HPI - General Chief complaint: ED Shortness of Breath/Dyspnea Stated complaint: ANNETTA Time Seen by Provider: 08/24/17 05:10 - Related Data Home Medications Medication Instructions Recorded Confirmed Citalopram [CeleXA] 40 mg PO DAILY 10/02/15 08/21/17 Fluticasone/Salmeterol [Advair 1 puff IH BID 10/02/15 08/21/17 250-50 Diskus] Furosemide [Lasix] 40 mg PO BID 10/02/15 08/21/17 Lidocaine Patch [Lidoderm 5% patch] 1 patch TP DAILY 10/02/15 08/21/17 hydrOXYzine HCl [Hydroxyzine HCl] 25 mg PO TID 10/02/15 08/21/17 Ferrous Sulfate [Iron] 325 mg PO DAILY 10/04/16 08/21/17 Ergocalciferol (VITAMIN D2) 50,000 unit PO QWEEK 11/03/16 08/21/17 [Vitamin D2] Lisinopril [Zestril] 10 mg PO DAILY 11/03/16 08/21/17 Simvastatin [Zocor] 40 mg PO HS 11/03/16 08/21/17 Tizanidine HCl [Zanaflex] 4 mg PO TID 11/03/16 08/21/17 Ipratropium/Albuterol Sulfate 1 puff IH QID 11/19/16 08/21/17 [Combivent Respimat Inhal [place]] Albuterol Sulfate [Proair Hfa] 2 puff IH Q4H PRN 05/08/17 08/21/17 BuPROPion SR (12 HR) [Wellbutrin 150 mg PO BID 05/08/17 08/21/17 SR] Calcium Acetate [Phos-LO] 1,334 mg PO TIDWM 05/08/17 08/21/17 Mupirocin [Bactroban Oint] 1 appl TP BID 05/08/17 08/21/17 Ondansetron HCl [Zofran] 4 mg PO BID 05/08/17 08/21/17 Sevelamer [Renvela] 2,400 mg PO TIDWM 05/08/17 08/21/17 Tramadol HCl [Ultram] 50 mg PO TID PRN 05/08/17 08/21/17 Carvedilol 12.5 mg PO BID 07/30/17 08/21/17 Varenicline Tartrate [Chantix] 1 tab PO AD 07/30/17 08/21/17 Previous Rx's Medication Instructions Recorded Isosorbide MONOnitrate (24 HR) 30 mg PO DAILY #30 tab.er.24h 09/03/16 [Imdur] Aspirin 81 mg PO DAILY #30 tab.chew 11/24/16 Ipratropium/Albuterol Neb [Duoneb] 3 ml IH Q4HR #90 vial.neb 07/25/17 Gabapentin [Neurontin] 300 mg PO TID capsule 08/12/17 Allergies Allergy/AdvReac Type Severity Reaction Status Date / Time bee venom protein (honey bee) AdvReac Swelling Verified 06/30/17 04:08 of Lip/Tongue/Throat potassium AdvReac Vomiting Verified 06/30/17 04:08 prednisone AdvReac Vomiting Verified 06/30/17 04:08 Past Medical History - Past Medical History Medical history: Reports: arthritis, CHF, COPD, coronary artery disease, dialysis, GERD, hyperlipidemia, hypertension, myocardial infarction, osteoporosis, peripheral artery disease, renal disease, other Surgical history: Reports: non-contributory, vascular surgery, other Psychiatric history: Reports: anxiety, bipolar, depression, other - Social History Smoking Status: Current every day smoker Smokeless Tobacco Status: Yes Alcohol use: Reports: none Drug use: Reports: marijuana Course Vital Signs Temperature 96.9 F L 08/24/17 05:10 Pulse Rate 120 08/24/17 05:10 Respiratory Rate 27 08/24/17 05:10 Blood Pressure 223/129 08/24/17 05:10 O2 Sat by Pulse Oximetry 100 08/24/17 05:10 Temperature 96.9 F L 08/24/17 05:10 Pulse Rate 85 08/24/17 05:41 Respiratory Rate 19 08/24/17 06:02 Blood Pressure 156/85 08/24/17 06:02 O2 Sat by Pulse Oximetry 100 08/24/17 05:41 Oxygen Delivery Oxygen Delivery Bipap Medical Decision Making - Lab Data Result diagrams: 08/24/17 05:20 08/24/17 05:20 Lab Results 08/24/17 08/24/17 08/24/17 Range/Units 05:20 05:20 05:20 WBC 11.8 H D (4.3-11.1) K/mcL RBC 4.05 L (4.19-5.50) M/mcL Hgb 11.5 L D (12.9-16.9) g/dL Hct 35.8 L (37.5-50.1) % MCV 88.4 (83.0-100.0) fL MCH 28.4 (28.0-33.3) pg MCHC 32.1 (31.6-35.5) g/dL RDW 14.0 (11.5-14.5) % Plt Count 303 (140-400) K/mcL MPV 9.5 (9.4-12.4) fL Immature Gran % 0.8 (0-4) % Seg Neutrophils % 50.9 % Lymphocytes % 37.1 % Monocytes % 7.2 % Eosinophils % 3.5 % Basophils % 0.5 % Neutrophils # 6.0 (1.6-8.9) K/mcL Lymphocytes # 4.4 (0.6-4.6) K/mcL Monocytes # 0.9 (0.0-1.3) K/mcL Eosinophils # 0.4 (0.0-0.6) K/mcL Basophils # 0.1 (0.0-0.2) K/mcL PT (9.4-12.1) Seconds INR Sample Site ABG pH (7.32-7.45) pH Units ABG pCO2 (35-45) mmHg ABG pO2 (85-104) mmHg ABG HCO3 (21-27) mEq/L ABG Total CO2 (20-26) mEq/L ABG O2 Saturation (95-98) % ABG Base Excess (-2 to 3) mEq/L Tonio Test O2 Delivery Device Inspired O2 (1-15=lpm [id number]=%) PEEP cm H2O Sodium 125 L D (136-145) mEq/L Potassium 3.9 (3.5-4.5) mEq/L Chloride 95 L (98-109) mEq/L Carbon Dioxide 18 L (19-29) mEq/L BUN 18 (8-26) mg/dL Creatinine 3.96 H (0.72-1.25) mg/dL Est GFR ( Amer) 20 L (> 60) Est GFR (Non-Af Amer) 16 L (> 60) BUN/Creatinine Ratio 5 L (6-26) Glucose 102 H (70-99) mg/dL Calculated Osmolality 262 L (280-300) Calcium 7.6 L (8.6-10.8) mg/dL Total Bilirubin 0.4 (0.2-1.2) mg/dL Direct Bilirubin 0.1 (0.0-0.5) mg/dL Indirect Bilirubin 0.3 (0.0-1.2) mg/dL AST 33 (5-34) Units/L ALT 7 (0-55) Units/L Alkaline Phosphatase 141 H (38-126) Units/L Troponin I 0.03 (0-0.03) ng/mL B-Natriuretic Peptide (0-100) pg/mL Serum Total Protein 6.5 (6.0-8.3) g/dL Albumin 2.7 L (3.5-5.0) g/dL Globulin 3.8 H (2.4-3.5) g/dL Albumin/Globulin Ratio 0.7 L (1.1-2.2) 08/24/17 08/24/17 08/24/17 Range/Units 05:20 05:20 05:23 WBC (4.3-11.1) K/mcL RBC (4.19-5.50) M/mcL Hgb (12.9-16.9) g/dL Hct (37.5-50.1) % MCV (83.0-100.0) fL MCH (28.0-33.3) pg MCHC (31.6-35.5) g/dL RDW (11.5-14.5) % Plt Count (140-400) K/mcL MPV (9.4-12.4) fL Immature Gran % (0-4) % Seg Neutrophils % % Lymphocytes % % Monocytes % % Eosinophils % % Basophils % % Neutrophils # (1.6-8.9) K/mcL Lymphocytes # (0.6-4.6) K/mcL Monocytes # (0.0-1.3) K/mcL Eosinophils # (0.0-0.6) K/mcL Basophils # (0.0-0.2) K/mcL PT 10.7 (9.4-12.1) Seconds INR 1.0 Sample Site R Radial ABG pH 7.21 L (7.32-7.45) pH Units ABG pCO2 65 H (35-45) mmHg ABG pO2 193 H (85-104) mmHg ABG HCO3 26 (21-27) mEq/L ABG Total CO2 28 H (20-26) mEq/L ABG O2 Saturation 99 H (95-98) % ABG Base Excess -3 L (-2 to 3) mEq/L Tonio Test Positive O2 Delivery Device BiPAP Inspired O2 100.0 (1-15=lpm [id number]=%) PEEP 7 cm H2O Sodium (136-145) mEq/L Potassium (3.5-4.5) mEq/L Chloride (98-109) mEq/L Carbon Dioxide (19-29) mEq/L BUN (8-26) mg/dL Creatinine (0.72-1.25) mg/dL Est GFR ( Amer) (> 60) Est GFR (Non-Af Amer) (> 60) BUN/Creatinine Ratio (6-26) Glucose (70-99) mg/dL Calculated Osmolality (280-300) Calcium (8.6-10.8) mg/dL Total Bilirubin (0.2-1.2) mg/dL Direct Bilirubin (0.0-0.5) mg/dL Indirect Bilirubin (0.0-1.2) mg/dL AST (5-34) Units/L ALT (0-55) Units/L Alkaline Phosphatase (38-126) Units/L Troponin I (0-0.03) ng/mL B-Natriuretic Peptide 3429 H (0-100) pg/mL Serum Total Protein (6.0-8.3) g/dL Albumin (3.5-5.0) g/dL Globulin (2.4-3.5) g/dL Albumin/Globulin Ratio (1.1-2.2) Critical Care Time Critical Care Time: Yes Total Critical Care Time: 30 Attestation: The high probability of a clinically significant, sudden or life threatening deterioration of the [] system(s) required my full and direct attention, intervention and personal management. The aggregate critical care time was [] minutes. This time is in addition to time spent performing reported procedures but includes the following: [] Data Review and interpretation [] Patient assessment and monitoring of vital signs [] Documentation [] Medication orders and management History of required BiPAP therapy and IV nitroglycerin Attestation Statement - Attestation Attestation: I examined this patient and my medical decision-making was reviewed with the Resident Physician. I agree with the documented findings, disposition and treatment plan as described except to the extent set forth below. [id number] time provided Patient arrives by EMS from home acutely dyspneic. He has a known history of COPD, CHF and dialysis dependent kidney disease. He is visibly dyspneic on exam with accessory muscle use. He is tachypneic. BiPAP initiated prehospital. I have reviewed his most recent ED note from his admission several days ago.
[2017-08-24] MEDS ORDERED: methylPREDNISolone 125 MG/2 ML VIAL IVP ONE (05:14)
[2017-08-24] MEDS ORDERED: Ipratropium/Albuterol Neb 3 ML IH ONE (05:14)
[2017-08-24] MEDS ORDERED: Furosemide 40 MG/4 ML VIAL IVP ONE (05:16)
[2017-08-24] MEDS ORDERED: Nitroglycerin 25 MG/250 ML INFUS..BTL IVC ONE (05:17)
[2017-08-24] MEDS: Nitroglycerin 25 MG/250 ML INFUS..BTL IVC SCH (05:20)
--- NOTE | 2017-08-24 05:21 | Emergency Department Note ---
Disposition Clinical Impression: ESRD (end stage renal disease) on dialysis Acute respiratory failure Qualifiers: Respiratory failure complication: hypoxia Qualified Code(s): J96.01 - Acute respiratory failure with hypoxia CHF (congestive heart failure) Qualifiers: Congestive heart failure type: unspecified congestive heart failure type Congestive heart failure chronicity: acute on chronic Qualified Code(s): I50.9 - Heart failure, unspecified HTN (hypertension) Qualifiers: Hypertension type: unspecified Qualified Code(s): I10 - Essential (primary) hypertension Disposition: Admitted As Inpatient Condition: Fair Time of Disposition: 06:18 SOB HPI - General Chief Complaint: ED Shortness of Breath/Dyspnea Stated Complaint: ANNETTA Time Seen by Provider: 08/24/17 05:10 Source: patient, EMS Limitations: no limitations Nursing Notes Reviewed: Yes Vital Signs Reviewed: Yes - History of Present Illness Patient is a 52-year-old male who presents to [facility] ED with a chief complaint of difficulty breathing. Patient arrives via EMS, on CPAP and tripoding. Patient is to Make an hypoxemic with an oxygen saturation of 78% on CPAP. Per EMS report, patient was initially 78% when they picked him up but then improved to 96% on the nonrebreather. Patient was just recently admitted for acute on chronic respiratory failure and pulmonary edema. Patient does frequent admissions for the same. Past medical history significant for end -stage renal disease on dialysis Friday and Friday, COPD, CHF, HTN, HLD, CAD. States he did go to dialysis most recently on Friday. Pt Subjective Complaint: shortness of breath Onset (ago): hour(s) Severity: severe Consistency/Duration: gradually worsening Known history of: COPD, congestive heart failure Treatment prior to arrival: other (CPAP) - Related Data Home oxygen amount: 2 liters Home Medications Medication Instructions Recorded Confirmed Citalopram [CeleXA] 40 mg PO DAILY 10/02/15 08/21/17 Fluticasone/Salmeterol [Advair 1 puff IH BID 10/02/15 08/21/17 250-50 Diskus] Furosemide [Lasix] 40 mg PO BID 10/02/15 08/21/17 Lidocaine Patch [Lidoderm 5% patch] 1 patch TP DAILY 10/02/15 08/21/17 hydrOXYzine HCl [Hydroxyzine HCl] 25 mg PO TID 10/02/15 08/21/17 Ferrous Sulfate [Iron] 325 mg PO DAILY 10/04/16 08/21/17 Ergocalciferol (VITAMIN D2) 50,000 unit PO QWEEK 11/03/16 08/21/17 [Vitamin D2] Lisinopril [Zestril] 10 mg PO DAILY 11/03/16 08/21/17 Simvastatin [Zocor] 40 mg PO HS 11/03/16 08/21/17 Tizanidine HCl [Zanaflex] 4 mg PO TID 11/03/16 08/21/17 Ipratropium/Albuterol Sulfate 1 puff IH QID 11/19/16 08/21/17 [Combivent Respimat Inhal [place]] Albuterol Sulfate [Proair Hfa] 2 puff IH Q4H PRN 05/08/17 08/21/17 BuPROPion SR (12 HR) [Wellbutrin 150 mg PO BID 05/08/17 08/21/17 SR] Calcium Acetate [Phos-LO] 1,334 mg PO TIDWM 05/08/17 08/21/17 Mupirocin [Bactroban Oint] 1 appl TP BID 05/08/17 08/21/17 Ondansetron HCl [Zofran] 4 mg PO BID 05/08/17 08/21/17 Sevelamer [Renvela] 2,400 mg PO TIDWM 05/08/17 08/21/17 Tramadol HCl [Ultram] 50 mg PO TID PRN 05/08/17 08/21/17 Carvedilol 12.5 mg PO BID 07/30/17 08/21/17 Varenicline Tartrate [Chantix] 1 tab PO AD 07/30/17 08/21/17 Previous Rx's Medication Instructions Recorded Isosorbide MONOnitrate (24 HR) 30 mg PO DAILY #30 tab.er.24h 09/03/16 [Imdur] Aspirin 81 mg PO DAILY #30 tab.chew 11/24/16 Ipratropium/Albuterol Neb [Duoneb] 3 ml IH Q4HR #90 vial.neb 07/25/17 Gabapentin [Neurontin] 300 mg PO TID capsule 08/12/17 Allergies Allergy/AdvReac Type Severity Reaction Status Date / Time bee venom protein (honey bee) AdvReac Swelling Verified 06/30/17 04:08 of Lip/Tongue/Throat potassium AdvReac Vomiting Verified 06/30/17 04:08 prednisone AdvReac Vomiting Verified 06/30/17 04:08 All systems ED: reviewed and negative except as stated. Past Medical History - Past Medical History Attestation: Yes The following information was validated with the patient. Source: patient Medical history: Reports: arthritis, CHF, COPD, coronary artery disease, dialysis, GERD, hyperlipidemia, hypertension, myocardial infarction, osteoporosis, peripheral artery disease, renal disease, other Surgical history: Reports: non-contributory, vascular surgery, other Psychiatric history: Reports: anxiety, bipolar, depression, other - Social History Smoking Status: Current every day smoker Smokeless Tobacco Status: Yes Alcohol use: Reports: none Drug use: Reports: marijuana Physical Exam CONSTITUTIONAL: Alert, well-nourished, tripoding position, and respiratory distress; obese HEAD: Normocephalic; atraumatic. EYES: EOMI, no scleral icterus. NOSE: The nose is normal in appearance without rhinorrhea RESP: Decreased breath sounds/tight bilaterally, scattered wheezes/rhonchi CARD: sinus tachycardia, without murmurs, rub or gallop ABD: Non-distended; non-tender, soft,without rigidity, rebound or guarding SKIN: Normal for age and race; warm and dry; no apparent lesions - General Limitations: no limitations General appearance: alert, in no apparent distress Course Course Narrative: Patient seen and examined. Comes in in respiratory distress with hypoxemia. Respiratory to the bedside with BiPAP. Cardiopulmonary workup initiated. Patient very hypertensive with his pressure 200/100. Nitroglycerin drip initiated along with 40 of IV Lasix. - Reevaluation(s) Reevaluation #1: Patient's lab work shows elevated BNP again in the 3000s. Troponin 0.03. Will admit for acute on chronic respiratory failure, CHF exacerbation, COPD exacerbation. Patient currently appearing much more comfortable on the BiPAP. Oxygen saturation at 100% on BiPAP. Blood pressures improved to 140s over 80s. Discussed with hospitalist Dr. Cohen who has accepted patient for admission. Discussed with scada engineer Dr. Zavala who will consult. Time: 06:16 Vital Signs Temperature 96.9 F L 08/24/17 05:10 Pulse Rate 120 08/24/17 05:10 Respiratory Rate 27 08/24/17 05:10 Blood Pressure 223/129 08/24/17 05:10 O2 Sat by Pulse Oximetry 100 08/24/17 05:10 Temperature 96.9 F L 08/24/17 05:10 Pulse Rate 85 08/24/17 05:41 Respiratory Rate 19 08/24/17 06:02 Blood Pressure 156/85 08/24/17 06:02 O2 Sat by Pulse Oximetry 100 08/24/17 05:41 Oxygen Delivery Oxygen Delivery Bipap Shortness of Breath/Dyspnea - Medical Records Medical records reviewed: Yes I reviewed the patient's medical records. - Lab Data Lab results reviewed: Yes I reviewed the patient's lab results. Result diagrams: 08/24/17 05:20 08/24/17 05:20 Lab Results 08/24/17 08/24/17 08/24/17 Range/Units 05:20 05:20 05:20 WBC 11.8 H D (4.3-11.1) K/mcL RBC 4.05 L (4.19-5.50) M/mcL Hgb 11.5 L D (12.9-16.9) g/dL Hct 35.8 L (37.5-50.1) % MCV 88.4 (83.0-100.0) fL MCH 28.4 (28.0-33.3) pg MCHC 32.1 (31.6-35.5) g/dL RDW 14.0 (11.5-14.5) % Plt Count 303 (140-400) K/mcL MPV 9.5 (9.4-12.4) fL Immature Gran % 0.8 (0-4) % Seg Neutrophils % 50.9 % Lymphocytes % 37.1 % Monocytes % 7.2 % Eosinophils % 3.5 % Basophils % 0.5 % Neutrophils # 6.0 (1.6-8.9) K/mcL Lymphocytes # 4.4 (0.6-4.6) K/mcL Monocytes # 0.9 (0.0-1.3) K/mcL Eosinophils # 0.4 (0.0-0.6) K/mcL Basophils # 0.1 (0.0-0.2) K/mcL PT (9.4-12.1) Seconds INR Sample Site ABG pH (7.32-7.45) pH Units ABG pCO2 (35-45) mmHg ABG pO2 (85-104) mmHg ABG HCO3 (21-27) mEq/L ABG Total CO2 (20-26) mEq/L ABG O2 Saturation (95-98) % ABG Base Excess (-2 to 3) mEq/L Tonio Test O2 Delivery Device Inspired O2 (1-15=lpm [id number]=%) PEEP cm H2O Sodium 125 L D (136-145) mEq/L Potassium 3.9 (3.5-4.5) mEq/L Chloride 95 L (98-109) mEq/L Carbon Dioxide 18 L (19-29) mEq/L BUN 18 (8-26) mg/dL Creatinine 3.96 H (0.72-1.25) mg/dL Est GFR ( Amer) 20 L (> 60) Est GFR (Non-Af Amer) 16 L (> 60) BUN/Creatinine Ratio 5 L (6-26) Glucose 102 H (70-99) mg/dL Calculated Osmolality 262 L (280-300) Calcium 7.6 L (8.6-10.8) mg/dL Total Bilirubin 0.4 (0.2-1.2) mg/dL Direct Bilirubin 0.1 (0.0-0.5) mg/dL Indirect Bilirubin 0.3 (0.0-1.2) mg/dL AST 33 (5-34) Units/L ALT 7 (0-55) Units/L Alkaline Phosphatase 141 H (38-126) Units/L Troponin I 0.03 (0-0.03) ng/mL B-Natriuretic Peptide (0-100) pg/mL Serum Total Protein 6.5 (6.0-8.3) g/dL Albumin 2.7 L (3.5-5.0) g/dL Globulin 3.8 H (2.4-3.5) g/dL Albumin/Globulin Ratio 0.7 L (1.1-2.2) 08/24/17 08/24/17 08/24/17 Range/Units 05:20 05:20 05:23 WBC (4.3-11.1) K/mcL RBC (4.19-5.50) M/mcL Hgb (12.9-16.9) g/dL Hct (37.5-50.1) % MCV (83.0-100.0) fL MCH (28.0-33.3) pg MCHC (31.6-35.5) g/dL RDW (11.5-14.5) % Plt Count (140-400) K/mcL MPV (9.4-12.4) fL Immature Gran % (0-4) % Seg Neutrophils % % Lymphocytes % % Monocytes % % Eosinophils % % Basophils % % Neutrophils # (1.6-8.9) K/mcL Lymphocytes # (0.6-4.6) K/mcL Monocytes # (0.0-1.3) K/mcL Eosinophils # (0.0-0.6) K/mcL Basophils # (0.0-0.2) K/mcL PT 10.7 (9.4-12.1) Seconds INR 1.0 Sample Site R Radial ABG pH 7.21 L (7.32-7.45) pH Units ABG pCO2 65 H (35-45) mmHg ABG pO2 193 H (85-104) mmHg ABG HCO3 26 (21-27) mEq/L ABG Total CO2 28 H (20-26) mEq/L ABG O2 Saturation 99 H (95-98) % ABG Base Excess -3 L (-2 to 3) mEq/L Tonio Test Positive O2 Delivery Device BiPAP Inspired O2 100.0 (1-15=lpm [id number]=%) PEEP 7 cm H2O Sodium (136-145) mEq/L Potassium (3.5-4.5) mEq/L Chloride (98-109) mEq/L Carbon Dioxide (19-29) mEq/L BUN (8-26) mg/dL Creatinine (0.72-1.25) mg/dL Est GFR ( Amer) (> 60) Est GFR (Non-Af Amer) (> 60) BUN/Creatinine Ratio (6-26) Glucose (70-99) mg/dL Calculated Osmolality (280-300) Calcium (8.6-10.8) mg/dL Total Bilirubin (0.2-1.2) mg/dL Direct Bilirubin (0.0-0.5) mg/dL Indirect Bilirubin (0.0-1.2) mg/dL AST (5-34) Units/L ALT (0-55) Units/L Alkaline Phosphatase (38-126) Units/L Troponin I (0-0.03) ng/mL B-Natriuretic Peptide 3429 H (0-100) pg/mL Serum Total Protein (6.0-8.3) g/dL Albumin (3.5-5.0) g/dL Globulin (2.4-3.5) g/dL Albumin/Globulin Ratio (1.1-2.2) - Radiology Data Radiology results reviewed: Yes I reviewed the patient's radiology results. Chest X-Ray 08/24/17 05:10 IMPRESSION: 1. Stable cardiomegaly with pulmonary edema and consolidation in the right lung base with associated right pleural effusion. D/ / Manjinder Sandhu MD / Manjinder Sandhu MD Interpreting Provider: Manjinder Sandhu MD - EKG Data EKG attestation: Yes I reviewed and interpreted this EKG. EKG results narrative: EKG done at 523 shows sinus tachycardia with a rate of [address] elevation. ST depression noted in leads V4 through V6. Normal axis. Unchanged from prior EKG done 08/21/2017.
[2017-08-24 05:25] LABS: Basophils # 0.1 K/mcL (0.0-0.2); Basophils % 0.5 %; Eosinophils # 0.4 K/mcL (0.0-0.6); Eosinophils % 3.5 %; Hematocrit 35.8 % (37.5-50.1); Hemoglobin 11.5 g/dL (12.9-16.9); Immature Granulocytes % 0.8 % (0-4); Lymphocytes # 4.4 K/mcL (0.6-4.6); Lymphocytes % 37.1 %; Mean Corpuscular HGB Conc 32.1 g/dL (31.6-35.5); Mean Corpuscular Hemoglobin 28.4 pg (28.0-33.3); Mean Corpuscular Volume 88.4 fL (83.0-100.0); Mean Platelet Volume 9.5 fL (9.4-12.4); Monocytes # 0.9 K/mcL (0.0-1.3); Monocytes % 7.2 %; Platelet Count 303 K/mcL (140-400); Red Blood Count 4.05 M/mcL (4.19-5.50); Segmented Neutrophils % 50.9 %
[2017-08-24 05:27] LABS: ABG Base Excess -3 mEq/L (-2 to 3); ABG HCO3 26 mEq/L (21-27); ABG Oxygen Saturation 99 % (95-98); ABG PCO2 65 mmHg (35-45); ABG PH 7.21 pH Units (7.32-7.45); ABG PO2 193 mmHg (85-104); ABG TCO2 28 mEq/L (20-26); Blood Gas PEEP 7 cm H2O
[2017-08-24 05:32] LABS: Prothrombin Time 10.7 Seconds (9.4-12.1)
[2017-08-24 05:40] LABS: Albumin 2.7 g/dL (3.5-5.0); Albumin/Globulin Ratio 0.7 (1.1-2.2); Bilirubin,Direct 0.1 mg/dL (0.0-0.5); Bilirubin,Indirect 0.3 mg/dL (0.0-1.2); Bilirubin,Total 0.4 mg/dL (0.2-1.2); Calcium 7.6 mg/dL (8.6-10.8); Globulin 3.8 g/dL (2.4-3.5); Total Protein 6.5 g/dL (6.0-8.3)
[2017-08-24 05:41] LABS: Potassium 3.9 mEq/L (3.5-4.5)
[2017-08-24] MEDS ORDERED: Naloxone 0.4 MG/ML INJ IVP PRN (07:44)
--- NOTE | 2017-08-24 08:03 | Internal Med History&Physical ---
Date of Encounter: 08/24/17 Time of Encounter: 07:54 Assessment and Plan (1) Acute respiratory failure Current visit: Yes Status: Acute Patient is a acute hypoxemic respiratory failure likely secondary to worsening pulmonary edema secondary to the noncompliance with the fluid intake. Plan: Continue BiPAP for now. Nitro drip for now. I have personally spoken to the family helper on-call. Patient needs her dialysis today. Neurologist we will arrange for dialysis sometime this morning/afternoon Qualifiers: Respiratory failure complication: hypoxia Qualified Code(s): J96.01 - Acute respiratory failure with hypoxia (2) Pulmonary edema Current visit: No Status: Acute Patient is a worsening pulmonary edema which is likely secondary to the fluid overload secondary to his noncompliance. Qualifiers: Chronicity: acute Qualified Code(s): J81.0 - Acute pulmonary edema (3) ESRD (end stage renal disease) on dialysis Current visit: No Status: Chronic Patient has end-stage renal disease. He is on dialysis Friday/Friday/Friday. Last dialysis was on Friday. Patient was telling that he was very excited with the [employer] football game (4) COPD (chronic obstructive pulmonary disease) Current visit: No Status: Chronic There is a component of her COPD exacerbation to but there is a more of a fluid overload rather than a COPD. Qualifiers: COPD type: unspecified COPD Qualified Code(s): J44.9 - Chronic obstructive pulmonary disease, unspecified (5) DVT prophylaxis Current visit: No Status: Acute SCD Medical decision making: This patient has a moderate to severe risk of worsening in spite of being on appropriate medication and therapy due to the complex underlying comorbid conditions. Internal Medicine - H&P: HPI Chief complaint: Shortness of breath Admitted From: Emergency Dept Plans for Post Hospital Care: Home History of present illness: PCP: Nurse practitioner Adiel Huston Nephrology: Dr. Lars Zavala. Brief past medical history: Hypertension, hyperlipidemia, coronary artery disease, COPD, end-stage renal disease on dialysis Friday/Friday/Friday. Last dialysis was on Friday. History of present illness: Patient came to this hospital for difficulty in breathing. Patient has worsening shortness of breath for past 24 hours. Patient also wanted and she could not read and it was noted that when squad took his vitals, his oxygen saturation was 78%. The squad gave him a nonrebreather mask and it was picked up to 96% as per the ER documentation as well as the squad report. Patient claims that he felt immediately better after the squad came and they brought him to the emergency department for further evaluation. Patient denies chest pain, abdominal pain, nausea, vomiting, diarrhea and dizziness. Workup in the emergency department: Patient was evaluated in the emergency department. Basic labs were drawn along with gas. X-ray was done which was suggestive of a pulmonary edema. Noted that patient's BUN is normal. Creatinine is around 3. Patient was placed on a BiPAP as you are having a difficulty and he was started on nitro drip. Reason for admission: Patient was hospitalized for further management in view of possible emergent dialysis and continuation of the nitro drip along with the BiPAP in view of the fluid overload. Family history: Noncontributory Past Med Surg Social Fam HX - Past Medical History Medical history: arthritis, CHF, COPD, coronary artery disease, dialysis, GERD, hyperlipidemia, hypertension, myocardial infarction, osteoporosis, peripheral artery disease, renal disease, other Psychiatric history: anxiety, bipolar, depression, other - Past Surgical History Surgical History: non-contributory, vascular surgery, other - Social History Smoking Status: Current every day smoker Smokeless Tobacco Status: Yes Alcohol use: none Drug use: marijuana - Family History Mother Living Status: Hx Family Cardiac Disorders: Yes Father Living Status: Hx Family Cardiac Disorders: Yes Hx Family Cancer: Yes Internal Medicine - H&P: Meds Citalopram [CeleXA] 40 mg PO DAILY 10/02/15 [History] Fluticasone/Salmeterol [Advair 250-50 Diskus] 1 puff IH BID 10/02/15 [History] Furosemide [Lasix] 40 mg PO BID 10/02/15 [History] Lidocaine Patch [Lidoderm 5% patch] 1 patch TP DAILY 10/02/15 [History] hydrOXYzine HCl [Hydroxyzine HCl] 25 mg PO TID 10/02/15 [History] Isosorbide MONOnitrate (24 HR) [Imdur] 30 mg PO DAILY #30 tab.er.24h 09/03/16 [ Rx] Ferrous Sulfate [Iron] 325 mg PO DAILY 10/04/16 [History] Ergocalciferol (VITAMIN D2) [Vitamin D2] 50,000 unit PO QWEEK 11/03/16 [History] Lisinopril [Zestril] 10 mg PO DAILY 11/03/16 [History] Simvastatin [Zocor] 40 mg PO HS 11/03/16 [History] Tizanidine HCl [Zanaflex] 4 mg PO TID 11/03/16 [History] Ipratropium/Albuterol Sulfate [Combivent Respimat Inhal [place]] 1 puff IH QID 04/28 [History] Aspirin 81 mg PO DAILY #30 tab.chew 11/24/16 [Rx] Albuterol Sulfate [Proair Hfa] 2 puff IH Q4H PRN 05/08/17 [History] BuPROPion SR (12 HR) [Wellbutrin SR] 150 mg PO BID 05/08/17 [History] Calcium Acetate [Phos-LO] 1,334 mg PO TIDWM 05/08/17 [History] Mupirocin [Bactroban Oint] 1 appl TP BID 05/08/17 [History] Ondansetron HCl [Zofran] 4 mg PO BID 05/08/17 [History] Sevelamer [Renvela] 2,400 mg PO TIDWM 05/08/17 [History] Tramadol HCl [Ultram] 50 mg PO TID PRN 05/08/17 [History] Ipratropium/Albuterol Neb [Duoneb] 3 ml IH Q4HR #90 vial.neb 07/25/17 [Rx] Carvedilol 12.5 mg PO BID 07/30/17 [History] Varenicline Tartrate [Chantix] 1 tab PO AD 07/30/17 [History] Gabapentin [Neurontin] 300 mg PO TID capsule 08/12/17 [Rx] 3 Allergy/AdvReac Type Severity Reaction Status Date / Time bee venom protein (honey bee) AdvReac Swelling Verified 06/30/17 04:08 of Lip/Tongue/Throat potassium AdvReac Vomiting Verified 06/30/17 04:08 prednisone AdvReac Vomiting Verified 06/30/17 04:08 All Systems PM: A 10-system review of systems was performed and is negative for pertinent findings except as documented above in the HPI. - Constitutional Constitutional: no chills, no fever(s), no night sweats - EENT Eyes: no change in vision, no discharge, no pain, no photophobia Ears: no ear discharge, no ear pain, no tinnitus Nose, mouth and throat: no dysphagia, no nasal discharge, no neck pain, no sore throat - Cardiovascular Cardiovascular ROS IM: diaphoresis, dyspnea, no chest pain, no lightheadedness, no palpitations, no syncope - Respiratory Respiratory: cough, dyspnea, no wheezing, no excessive phlegm production - Gastrointestinal Gastrointestinal: no abdominal pain, no diarrhea, no hematemesis, no hematochezia, no melena, no nausea, no vomiting - Musculoskeletal Musculoskeletal ROS IM: no numbness, no tingling - Integumentary Integumentary IM: no rash, no unusual bruising - Neurological Neurological ROS: no confusion, no convulsions, no focal weakness, no numbness, no tingling, no tremor(s) - Hematologic/Lymphatic Hematologic/Lymphatic: no easy bruising - Constitutional Vitals: Temp Pulse Resp BP Pulse Ox 96.9 F L 70 22 142/80 100 08/24/17 05:10 08/24/17 06:26 08/24/17 06:26 08/24/17 06:26 08/24/17 06:26 General appearance: Present: mild distress, A&O X 3, pleasant, answers questions appropriately - Head Head exam: Present: atraumatic, normocephalic - Eye Eye exam: Present: PERRL, conjuntiva pink, sclera anicteric Pupils: Present: PERRL - Neck Neck exam general surgery: Present: supple, trachea midline. Absent: lymphadenopathy - Respiratory Respiratory exam: Present: CTAB. Absent: accessory muscle use, rales, rhonchi, wheezes - Cardiovascular Cardiovascular exam: Present: RRR, +S1, +S2. Absent: diastolic murmur, gallop, rubs, systolic murmur - GI/Abdominal GI/Abdominal exam: Present: normal bowel sounds, soft, no peritoneal signs. Absent: distended, tenderness - Extremities Exam Extremities exam: Present: warm, radial pulses palpable and symmetrical. Absent : calf tenderness, cyanotic, pedal edema - Neurological Exam Neurological exam: Present: CN II-XII intact, oriented X3, no focal deficits. Absent: pronater drift, facial droop, speech deficit - Skin Skin exam: Present: dry, intact Internal Med - H&P Results - Labs CBC & Chem 7: 08/24/17 05:20 08/24/17 05:20
[2017-08-24] MEDS: Ipratropium/Albuterol Neb 3 ML IH SCH ×5 (08:15→23:31)
[2017-08-24] MEDS: Budesonide/Formoterol 80/4.5 MDI IH SCH ×2 (08:21→20:23)
[2017-08-24] MEDS ORDERED: Cholecalciferol (D-3) 1,000 UNIT TABLET PO SCH (09:00)
[2017-08-24] MEDS: Gabapentin 300 MG CAPSULE PO SCH ×3 (09:43→20:09)
[2017-08-24] MEDS: Isosorbide MONOnitrate (24 HR) 30 MG TAB.ER.24H PO SCH (09:43)
[2017-08-24] MEDS: Calcium Acetate 667 MG CAPSULE PO SCH ×3 (09:43→17:11)
[2017-08-24] MEDS: BuPROPion SR (12 HR) 150 MG TABLET PO SCH ×2 (09:43→20:09)
[2017-08-24] MEDS: hydrOXYzine pamoate 25 MG CAPSULE PO SCH ×3 (09:44→20:09)
[2017-08-24] MEDS: tiZANidine 4 MG TABLET PO SCH ×3 (09:44→20:10)
[2017-08-24] MEDS: Aspirin 81 MG TAB.CHEW PO SCH (09:44)
[2017-08-24] MEDS: Furosemide 40 MG TABLET PO SCH ×2 (09:45→17:11)
[2017-08-24] MEDS: Ondansetron ODT 4 MG TAB.RAPDIS PO SCH ×2 (09:47→20:10)
--- NOTE | 2017-08-24 12:58 | Nephrology Consult Note ---
Date of Encounter: 08/24/17 Time of Encounter: 12:00 Assessment and Plan (1) ESRD (end stage renal disease) on dialysis Current Visit: Yes Status: Chronic ESRD pt of Dr. Acevedo. He dialyzes at [facility] via a Left TDC. Frequent admissions and known dietary indiscretion/noncompliance. Would arrange for more HD today, but he flat out refused. Will arrange for more IV Lasix in an attempt to carry him into tomorrow (Friday) for early HD. He is a very high risk patient for mortality, and medically complex patient (ESRD; Hyponatremia; ARF; Uncontrolled HTN; etc). I spent >65 min in reviewing his records, labs, vitals, interview, exam and documentation. (2) HTN (hypertension) Current Visit: Yes Status: Chronic Agree with Nitro gtt. Pt is refusing HD today which could help. Will arrange for more IV Lasix (see below). Qualifiers: Hypertension type: secondary to other renal disorders Qualified Code(s): I15.1 - Hypertension secondary to other renal disorders; N28.89 - Other specified disorders of kidney and ureter; N28.89 - Other specified disorders of kidney and ureter (3) Acute respiratory failure Current Visit: Yes Status: Acute The portable CXR in the ER reported unchanged pulm edema with right consolidated pleural effusion: ?PNA vs loculated effusion. Will check PA/Lat CXR in AM. If infection is higher in the DDx consider thoracentesis. Certainly his fluid restriction and salt restrictions appear to have not been followed since discharge just a few days ago; so in this dialysis patient; volume is contributing to the hypoxic ARF. Qualifiers: Respiratory failure complication: hypoxia Qualified Code(s): J96.01 - Acute respiratory failure with hypoxia (4) Acidosis, metabolic Current Visit: No Status: Chronic Chronic; plan for HD when able (5) Depression Current Visit: No Status: Chronic He appears depressed with a flat affect and refused to have HD today (Friday). It may be cancino to add an SSRI at some point, but not SSRIs can affect hyponatremia. Qualifiers: Depression Type: unspecified Qualified Code(s): F32.9 - Major depressive disorder, single episode, unspecified (6) H/O noncompliance with medical treatment, presenting hazards to health Current Visit: No Status: Chronic Acute on chronic noncompliance. He appears to continue to display dietary indiscretion at a football game function yesterday and returned with severe dyspnea; hypervolume hyponatremia and is presently refusing extra dialysis today. He did agree to more HD tomorrow (Friday). (7) Hyponatremia Current Visit: No Status: Acute Acute on recurrent/chronic. I suspect hypervolumic hyponatremia. On volume assessment (i.e., exam), he actually does not look hypervolumic; he has wrinkling from recently improved peripheral edema s/p 3 [id number] HD treatments from Fri, , Friday. However, in review of his PNa trend over the last several admissions, this is a recurrent finding that would be most consistent in a dialysis patient to be volume related. Treatment: 1.2L fluid restriction and HD when able (pt is refusing today; so I' ve gone ahead and ordered it for early Friday). To help today with his volume status; I'll order more Lasix IV. He received 40mg in the ER, and I'll order another Lasix 80mg IV. This plus the fluid restriction may help lessen his Systolic hypertension and dyspnea as well as (hopefuly) improve the PNa. Goal correction is <8mEq in first 24hr. Will follow PNa levels. (8) Anemia in chronic kidney disease Current Visit: No Status: Chronic Goal Hgb is 10-11; IV iron and TAISHA as needed. Present at goal. Qualifiers: Chronic kidney disease stage: on chronic dialysis Qualified Code(s): N18.6 - End stage renal disease; D63.1 - Anemia in chronic kidney disease; Z99.2 - Dependence on renal dialysis History of Present Illness - Reason for Consult Consult date: 08/24/17 end stage renal disease, hyponatremia, accelerated hypertension Requesting physician: German Leung - Chief Complaint Shortness of breath - History of Present Illness Steve Castro is a 52 y/o male with a pmh of ESRD on HD M/W/F, high hospital readmission/recidivism rates, HTN, bactermia from prior Permacath infections, Anemia of CKD, chronic systolic CHF, noncompliance, and et al who presented early this AM with severe shortness of breath. He said that he started coughing again and again and could not breath that occurred early this AM and lasted until seen in the ER. In the ER the was found to be hypoxic and placed on BiPAP. He was give Lasix 40mg IV and placed on a Nitro gtt. He said that he attended a sporting function yesterday. He initially told me that he did not eat or drink fluids in XS, but later changed his story. He affirmed that he completed all the HD treatment on Friday; which was at [facility] before he was discharged to home. He did not report any allievating factors or provokative factors other than the cough. He denied F/C/N/V/D or CP. He voiced no pain with taking deep breathes. On exam today, he was resting comfortably with O2 per nasal cannula and preparing to eat lunch. Past Med Surg Social Fam HX - Past Medical History Medical history: arthritis, CHF, COPD, coronary artery disease, dialysis, GERD, hyperlipidemia, hypertension, myocardial infarction, osteoporosis, peripheral artery disease, renal disease, other Psychiatric history: anxiety, bipolar, depression, other - Past Surgical History Surgical History: non-contributory, vascular surgery, other - Social History Smoking Status: Current every day smoker Smokeless Tobacco Status: Yes Alcohol use: none Drug use: marijuana - Family History Mother Living Status: Hx Family Cardiac Disorders: Yes Father Living Status: Hx Family Cardiac Disorders: Yes Hx Family Cancer: Yes Medications and Allergies Citalopram [CeleXA] 40 mg PO DAILY 10/02/15 [History] Fluticasone/Salmeterol [Advair 250-50 Diskus] 1 puff IH BID 10/02/15 [History] Furosemide [Lasix] 40 mg PO BID 10/02/15 [History] Lidocaine Patch [Lidoderm 5% patch] 1 patch TP DAILY 10/02/15 [History] hydrOXYzine HCl [Hydroxyzine HCl] 25 mg PO TID 10/02/15 [History] Isosorbide MONOnitrate (24 HR) [Imdur] 30 mg PO DAILY #30 tab.er.24h 09/03/16 [ Rx] Ferrous Sulfate [Iron] 325 mg PO DAILY 10/04/16 [History] Ergocalciferol (VITAMIN D2) [Vitamin D2] 50,000 unit PO QWEEK 11/03/16 [History] Lisinopril [Zestril] 10 mg PO DAILY 11/03/16 [History] Simvastatin [Zocor] 40 mg PO HS 11/03/16 [History] Tizanidine HCl [Zanaflex] 4 mg PO TID 11/03/16 [History] Ipratropium/Albuterol Sulfate [Combivent Respimat Inhal [place]] 1 puff IH QID 04/28 [History] Aspirin 81 mg PO DAILY #30 tab.chew 11/24/16 [Rx] Albuterol Sulfate [Proair Hfa] 2 puff IH Q4H PRN 05/08/17 [History] BuPROPion SR (12 HR) [Wellbutrin SR] 150 mg PO BID 05/08/17 [History] Calcium Acetate [Phos-LO] 1,334 mg PO TIDWM 05/08/17 [History] Mupirocin [Bactroban Oint] 1 appl TP BID 05/08/17 [History] Ondansetron HCl [Zofran] 4 mg PO BID 05/08/17 [History] Sevelamer [Renvela] 2,400 mg PO TIDWM 05/08/17 [History] Tramadol HCl [Ultram] 50 mg PO TID PRN 05/08/17 [History] Ipratropium/Albuterol Neb [Duoneb] 3 ml IH Q4HR #90 vial.neb 07/25/17 [Rx] Carvedilol 12.5 mg PO BID 07/30/17 [History] Gabapentin [Neurontin] 600 mg PO BID 08/24/17 [History] 3 Allergy/AdvReac Type Severity Reaction Status Date / Time bee venom protein (honey bee) AdvReac Swelling Verified 06/30/17 04:08 of Lip/Tongue/Throat potassium AdvReac Vomiting Verified 06/30/17 04:08 prednisone AdvReac Vomiting Verified 06/30/17 04:08 Review of Systems All Systems: reviewed and no additional remarkable complaints except as stated Constitutional: daytime sleepiness, fatigue, lethargy, malaise, weight gain Nose, mouth and throat: no dizziness, no lip swelling Cardiovascular: leg edema, orthopnea, paroxysmal nocturnal dyspnea, no chest pain, no chest pain at rest, no chest pain with activity, no palpitations Respiratory: cough, dyspnea, dyspnea on exertion, wheezing, no hemoptysis, no pain on inspiration, no excessive phlegm production Gastrointestinal: no abdominal pain, no loose stools, no nausea, no vomiting Genitourinary Male: no difficulty urinating, no dysuria, no flank pain, no post void dribbling Musculoskeletal: deformity (hunched back (chronic)) Integumentary: no changing lesions, no new lesions Neurological: no dizziness, no syncope Psychiatric: change in appetite, depression Endocrine: polydipsia, polyphagia, no polyuria Allergic/Immunologic: wheezing Exam - Vital Signs Vital signs: Initial Vital Signs Temp Pulse Resp BP Pulse Ox 96.9 F L 120 27 223/129 100 08/24/17 05:10 08/24/17 05:10 08/24/17 05:10 08/24/17 05:10 08/24/17 05:10 Vital Signs - Last 8 Hours Temp Pulse Resp BP Pulse Ox 08/24/17 11:08 98.1 F 75 18 178/99 93 08/24/17 10:58 18 93 08/24/17 08:22 75 18 174/93 96 Intake and Output 08/23/17 08/24/17 08/24/17 23:59 07:59 15:59 Intake Total 50 / 50 Balance 50 / 50 Intake: IV Fluids 50 / 50 Nitroglycerin Premix 25 MG/250 50 / 50 ML 25 mg In 250 ml @ 10 MCG/MIN 6 mls/hr IVC .Q24H [facility] Rx#: [id number] Other: Blood Glucose* 159 - General Appearance General appearance: cachectic, chronically ill, fatigue, frail Exam: appears older than stated age EENT: ATNC, PERRL, mucous membranes moist Respiratory: wheezing, rhonchi Cardiology: edema (trace pedal edema with wrinkles noted bilaterally. No hand edema or periorbital edema.), regular rate, regular rhythm, normal S1, normal S2 - Dialysis Access Dialysis Vascular Access: Venous Catheter (Left tunneled HD catheter without ozzing or exudates) Integumentary: warm and dry Neurologic: no focal deficit, no asterixis, alert and oriented x3 Musculoskeletal: no cyanosis, no clubbing Additional Comments: Flat affect and uncooperative Results - Lab Results 08/24/17 05:20 08/24/17 05:20 Most recent lab results ABG pH 7.21 pH Units (7.32-7.45) L 08/24/17 05:23 ABG pCO2 65 mmHg (35-45) H 08/24/17 05:23 ABG pO2 193 mmHg (85-104) H 08/24/17 05:23 ABG HCO3 26 mEq/L (21-27) 08/24/17 05:23 ABG O2 Saturation 99 % (95-98) H 08/24/17 05:23 Calcium 7.6 mg/dL (8.6-10.8) L 08/24/17 05:20 I reviewed the progress/ER and H&P notes; labs; vitals and I/Os from prior admissions (he makes some urine but not much); imaging (right consolidation but minimally changed findings of pulmonary edema); med lists Consult Discharge Plan - Plan Referrals: Nallely Hanna, [employer] [Primary Care Provider] -
[2017-08-24] MEDS ORDERED: Furosemide 80 MG in 0.9 % Sodium Chloride 50 ML IVPB ONE (13:24)
--- NOTE | 2017-08-24 18:12 | Electrocardiograph Report ---
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
[2017-08-24] MEDS: traMADol 50 MG TABLET PO PRN (20:09)
[2017-08-25] MEDS: Ipratropium/Albuterol Neb 3 ML IH SCH ×6 (03:15→23:10)
[2017-08-25 04:20] LABS: Basophils % 0.1 %; Hematocrit 26.6 % (37.5-50.1); Immature Granulocytes % 1.1 % (0-4); Lymphocytes # 1.2 K/mcL (0.6-4.6); Lymphocytes % 11.1 %; Mean Corpuscular HGB Conc 33.8 g/dL (31.6-35.5); Mean Corpuscular Hemoglobin 28.9 pg (28.0-33.3); Mean Corpuscular Volume 85.5 fL (83.0-100.0); Mean Platelet Volume 9.8 fL (9.4-12.4); Monocytes # 0.4 K/mcL (0.0-1.3); Monocytes % 3.8 %; Neutrophils # 9.1 K/mcL (1.6-8.9); Platelet Count 230 K/mcL (140-400); Red Blood Count 3.11 M/mcL (4.19-5.50); Red Cell Distribution Width 13.8 % (11.5-14.5); Segmented Neutrophils % 83.9 %
[2017-08-25 04:25] LABS: Prothrombin Time 10.6 Seconds (9.4-12.1)
[2017-08-25 04:27] LABS: Activated Partial Thrombo Time 30.3 Seconds (26.0-36.0)
[2017-08-25 04:37] LABS: Albumin 2.7 g/dL (3.5-5.0); Albumin/Globulin Ratio 0.8 (1.1-2.2); Alkaline Phosphatase 113 Units/L (38-126); Aspartate Amino Transferase 13 Units/L (5-34); BUN/Creatinine Ratio 6 (6-26); Carbon Dioxide 22 mEq/L (19-29); Chloride 90 mEq/L (98-109); Chol/HDL Ratio 3.4 (0-4.9); Cholesterol 154 mg/dL (< 200); Globulin 3.2 g/dL (2.4-3.5); Glucose 147 mg/dL (70-99); HDL Cholesterol 45 mg/dL (40-59); LDL Cholesterol,Calculated 93 mg/dL (0-99); Magnesium 1.7 mg/dL (1.6-2.6); Osmolality,Calculated 263 (280-300); Phosphorous 2.9 mg/dL (2.3-4.7); Potassium 4.5 mEq/L (3.5-4.5); Sodium 121 mEq/L (136-145); Total Protein 5.9 g/dL (6.0-8.3); Triglycerides 81 mg/dL (< 150); eGFR For African Americans 13 (> 60); eGFR For Non-African Americans 11 (> 60)
[2017-08-25 04:45] LABS: Alanine Aminotransferase < 6 Units/L (0-55); Bilirubin,Total < 0.2 mg/dL (0.2-1.2); Blood Urea Nitrogen 35 mg/dL (8-26); Calcium 8.9 mg/dL (8.6-10.8)
[2017-08-25] MEDS ORDERED: 0.9 % Sodium Chloride 250 ML IVC PRN (05:00)
[2017-08-25] MEDS: Nitroglycerin 25 MG/250 ML INFUS..BTL IVC SCH (05:28)
[2017-08-25] MEDS: Ondansetron ODT 4 MG TAB.RAPDIS PO SCH ×2 (07:38→19:45)
[2017-08-25] MEDS: Gabapentin 300 MG CAPSULE PO SCH ×3 (07:39→19:45)
[2017-08-25] MEDS: hydrOXYzine pamoate 25 MG CAPSULE PO SCH ×3 (07:39→19:45)
[2017-08-25] MEDS: Aspirin 81 MG TAB.CHEW PO SCH (07:39)
[2017-08-25] MEDS: tiZANidine 4 MG TABLET PO SCH ×3 (07:39→19:45)
[2017-08-25] MEDS: Calcium Acetate 667 MG CAPSULE PO SCH ×3 (07:39→17:05)
[2017-08-25] MEDS: BuPROPion SR (12 HR) 150 MG TABLET PO SCH ×2 (07:39→19:45)
[2017-08-25] MEDS: traMADol 50 MG TABLET PO PRN (07:41)
[2017-08-25] MEDS: Furosemide 40 MG TABLET PO SCH ×2 (07:43→17:05)
[2017-08-25] MEDS: Budesonide/Formoterol 80/4.5 MDI IH SCH ×2 (08:03→20:18)
[2017-08-25] MEDS ORDERED: 0.9 % Sodium Chloride 2,000 ML ONE (08:07)
--- NOTE | 2017-08-25 10:29 | Nephrology Progress Note ---
Date of Encounter: 08/25/17 Time of Encounter: 09:00 - Assessment and Plan (1) ESRD (end stage renal disease) on dialysis Current Visit: Yes Status: Chronic HD today. (2) HTN (hypertension) Current Visit: Yes Status: Chronic Hold AM antihypertensive meds on // so as to help remove more volume with each dialysis treatment. Qualifiers: Qualified Code(s): I15.1 - Hypertension secondary to other renal disorders; N28.89 - Other specified disorders of kidney and ureter; N28.89 - Other specified disorders of kidney and ureter (3) Acute respiratory failure Current Visit: Yes Status: Acute Should have a Pa/Lat CXR after HD today to assess the right basilar consolidation and to assess how much the pulm edema changes after a thorough HD treatment. Acute Qualifiers: Qualified Code(s): J96.01 - Acute respiratory failure with hypoxia (4) Acidosis, metabolic Current Visit: No Status: Chronic Chronic; stable and controlled. (5) Depression Current Visit: No Status: Chronic As per primary Qualifiers: Qualified Code(s): F32.9 - Major depressive disorder, single episode, unspecified (6) H/O noncompliance with medical treatment, presenting hazards to health Current Visit: No Status: Chronic Advised proper fluid restriction and dietary compliance. (7) Hyponatremia Current Visit: No Status: Acute Worsening. On exam, he does have more periorbital edema, consistent with hypervolemic hyponatremia. (8) Anemia in chronic kidney disease Current Visit: No Status: Chronic Goal Hgb is 10-11. Will monitor Hgb and provide IV iron and/or TAISHA as needed. Qualifiers: Qualified Code(s): N18.6 - End stage renal disease; D63.1 - Anemia in chronic kidney disease; Z99.2 - Dependence on renal dialysis Subjective Principal diagnosis: ESRD, Shortness of breath Interval history: Pt was s/e and did not affirm N/V/D and he said that his shortness of breath was much improved this AM. He did make urine yesterday he said, and he had no new complaints today. He asked me about how to arrange a home CPAP vs BiPAP. Objective - Vital Signs Vital signs: Vital Signs Temp Pulse Resp BP Pulse Ox 08/25/17 08:04 18 94 08/25/17 07:55 80 08/25/17 07:50 97.4 F L 77 16 166/98 94 08/25/17 07:33 98.5 F 78 18 149/94 94 08/25/17 05:24 84 143/78 08/25/17 04:18 82 162/100 08/25/17 04:14 98.4 F 80 18 156/89 99 08/25/17 03:18 82 156/89 08/25/17 02:18 81 156/89 08/25/17 01:18 78 141/76 08/25/17 00:18 81 164/93 08/24/17 23:31 20 93 08/24/17 23:18 75 149/81 08/24/17 23:10 99.1 F 80 16 149/81 95 08/24/17 22:00 73 145/82 08/24/17 21:00 77 151/87 08/24/17 20:24 23 94 08/24/17 20:00 99.2 F 79 14 159/96 94 08/24/17 19:06 99 F 78 18 148/89 93 08/24/17 19:00 77 148/89 08/24/17 18:00 78 159/95 08/24/17 17:30 73 156/91 08/24/17 17:00 74 154/94 08/24/17 16:30 69 153/88 08/24/17 16:00 71 143/87 08/24/17 15:46 18 91 08/24/17 15:30 70 134/84 08/24/17 15:00 69 140/90 08/24/17 14:30 67 155/91 08/24/17 14:00 98.7 F 70 17 134/84 90 08/24/17 13:30 78 156/91 08/24/17 13:00 91 171/95 08/24/17 12:30 77 165/93 08/24/17 12:00 77 169/108 08/24/17 11:30 71 188/99 08/24/17 11:08 98.1 F 75 18 178/99 93 08/24/17 11:00 78 178/99 08/24/17 10:58 18 93 Intake and Output 08/24/17 08/25/17 08/25/17 23:59 07:59 15:59 Intake Total 480 / 480 200 / 200 480 / 480 Output Total 800 / 800 250 / 250 Balance -320 / -320 200 / 200 230 / 230 Intake: IV Fluids 200 / 200 Nitroglycerin Premix 25 MG/250 200 / 200 ML 25 mg In 250 ml @ 10 MCG/MIN 6 mls/hr IVC .Q24H [facility] Rx#: [id number] Oral 480 / 480 480 / 480 Output: Urine 800 / 800 250 / 250 Other: Meal Breakfast Percent of Meal Consumed 100% Weight 81.4 kg Blood Glucose* 182 135 Patient Weight 08/25/17 23:59 Weight 81.4 kg - General Appearance General appearance: Present: cachectic, chronically ill, fatigue, frail EENT: Present: ATNC, PERRL Additional Comments: Right > Left periorbital edema Respiratory: Present: kyphosis, course breath sounds Cardiology: Present: edema (trace pedal edema b/l. No hand edema b/l), regular rate, regular rhythm, normal S1, normal S2 Dialysis Vascular Access: Venous Catheter (left TDC with dressing C/D/I) Gastrointestinal: Present: normoactive bowel sounds, no tenderness, obese Integumentary: Present: warm and dry Neurologic: Present: no focal deficit, no asterixis, alert and oriented x3 Musculoskeletal: Present: no cyanosis, no clubbing Psychiatric: Present: mood/affect appropriate - Lab 08/25/17 04:06 08/25/17 04:06 Most recent lab results ABG pH 7.21 pH Units (7.32-7.45) L 08/24/17 05:23 ABG pCO2 65 mmHg (35-45) H 08/24/17 05:23 ABG pO2 193 mmHg (85-104) H 08/24/17 05:23 ABG HCO3 26 mEq/L (21-27) 08/24/17 05:23 ABG O2 Saturation 99 % (95-98) H 08/24/17 05:23 Calcium 8.9 mg/dL (8.6-10.8) D 08/25/17 04:06 Phosphorus 2.9 mg/dL (2.3-4.7) 08/25/17 04:06 Magnesium 1.7 mg/dL (1.6-2.6) 08/25/17 04:06 - VTE Documentation of Mechanical Device: Graduated compression elastic hosiery Consult Discharge Plan - Plan Referrals: Nallely Hanna, MEKHI [Primary Care Provider] -
--- NOTE | 2017-08-25 11:00 | Internal Med Progress Note ---
Date of Encounter: 08/25/17 Time of Encounter: 10:58 - Assessment and plan (1) Acute and chronic respiratory failure ([id number]) Current Visit: No Status: Acute Assessment and plan: Likely secondary to volume overload secondary to dietary and medical noncompliance currently receiving hemodialysis and reports of improvement in his respiratory status awaiting PA/Lateral CXR to rule out any infectious etiology contributing to worsening respiratory status patient educated about dietary and medical compliance O2 supplementation as needed patient requesting CPAP at bedtime after discharge, however as per records, patient has history of noncompliance and not following up with sleep studies overnight bipap study requested. will continue to closely monitor respiratory status Qualifiers: Respiratory failure complication: unspecified whether with hypoxia or hypercapnia Qualified Code(s): J96.20 - Acute and chronic respiratory failure , unspecified whether with hypoxia or hypercapnia (2) Pulmonary edema Current Visit: No Status: Acute Assessment and plan: awaiting repeat CXR further management as listed above Qualifiers: Chronicity: acute Qualified Code(s): J81.0 - Acute pulmonary edema (3) Anemia in ESRD (end-stage renal disease) Current Visit: No Status: Chronic Assessment and plan: H&H low but acceptable no acute bleeding reported at this time will continue to monitor (4) CAD (coronary artery disease) Current Visit: No Status: Chronic Assessment and plan: no acute signs of angina present continue ASA, BB, statin Qualifiers: Coronary Disease-Associated Artery/Lesion type: [place] artery Hoh vs. transplanted heart: [place] heart Associated angina: without angina Qualified Code(s): I25.10 - Atherosclerotic heart disease of [place] coronary artery without angina pectoris (5) CHF (congestive heart failure) Current Visit: No Status: Chronic Assessment and plan: continue home medications Qualifiers: Congestive heart failure type: diastolic Congestive heart failure chronicity: acute on chronic Qualified Code(s): I50.33 - Acute on chronic diastolic (congestive) heart failure (6) COPD (chronic obstructive pulmonary disease) Current Visit: No Status: Chronic Assessment and plan: overnight bipap study requested continue home meds Qualifiers: COPD type: unspecified COPD Qualified Code(s): J44.9 - Chronic obstructive pulmonary disease, unspecified (7) ESRD (end stage renal disease) on dialysis Current Visit: No Status: Chronic Assessment and plan: Nephrology consultation on board and appreciated continue HD as per nephrology recommendations (8) Fluid overload Current Visit: No Status: Acute Assessment and plan: 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 in addition to diuretic support for volume removal Qualifiers: Hypervolemia type: other Qualified Code(s): E87.79 - Other fluid overload (9) H/O noncompliance with medical treatment, presenting hazards to health Current Visit: No Status: Chronic Assessment and plan: patient educated about the need to stay compliant (10) HTN (hypertension) Current Visit: No Status: Chronic Qualifiers: Hypertension type: essential hypertension Qualified Code(s): I10 - Essential (primary) hypertension (11) Hyponatremia Current Visit: No Status: Chronic Assessment and plan: Hypervolumic hyponatremia continue to closely monitor currently receiving 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 worsening from previous day, nephrology on board and consultation appreciated goal correction <8meq in 24 hours will continue to closely monitor (12) DEE (obstructive sleep apnea) Current Visit: No Status: Chronic Assessment and plan: overnight bipap study requested (13) DVT prophylaxis Current Visit: No Status: Acute Assessment and plan: Heparin SQ - Subjective Interval history: Patient seen and examined in hemodialysis. Reports of feeling better compared to previous day. States he has been wanting a CPAP machine at home but is refusing to schedule a sleep study. Will obtain bipap study overnight, however patient is educated on compliance with following up with his HD appointments and following a renal diet. Currently tolerating dialysis well. - Constitutional Vitals: Temp Pulse Resp BP Pulse Ox 97.4 F L 80 18 166/98 94 08/25/17 07:50 08/25/17 07:55 08/25/17 08:04 08/25/17 07:50 08/25/17 08:04 General appearance: Present: A&O X 3, no acute distress, obese, answers questions appropriately - Head Head exam: Present: atraumatic, normocephalic - Eye Eye exam: Present: conjuntiva pink (periorbital edema bilaterally), sclera anicteric. Absent: periorbital swelling, periorbital tenderness - Respiratory Respiratory exam: Present: decreased breath sounds. Absent: respiratory distress, wheezes - Cardiovascular Cardiovascular exam: Present: RRR, +S1, +S2. Absent: diastolic murmur, gallop, rubs, systolic murmur - GI/Abdominal GI/Abdominal exam: Present: normal bowel sounds, soft, no peritoneal signs. Absent: distended, tenderness - Extremities Exam Extremities exam: Present: pedal edema, warm, radial pulses palpable and symmetrical. Absent: calf tenderness - Neurological Exam Neurological exam: Present: alert, oriented X3 - Psychiatric Psychiatric exam: Present: normal affect, normal mood Internal Medicine: Result - Labs CBC & Chem 7: 08/25/17 04:06 08/25/17 04:06 Labs: Short CBC 08/25/17 Range/Units 04:06 WBC 10.8 (4.3-11.1) K/mcL Hgb 9.0 L D (12.9-16.9) g/dL Hct 26.6 L (37.5-50.1) % Plt Count 230 (140-400) K/mcL Neutrophils # 9.1 H (1.6-8.9) K/mcL BMP 08/25/17 04:06 Sodium 121 L Potassium 4.5 Chloride 90 L Carbon Dioxide 22 BUN 35 H D Creatinine 5.75 H Glucose 147 H Calcium 8.9 D Liver Function 08/25/17 Range/Units 04:06 Total Bilirubin < 0.2 L (0.2-1.2) mg/dL AST 13 (5-34) Units/L ALT < 6 (0-55) Units/L Alkaline Phosphatase 113 (38-126) Units/L Albumin 2.7 L (3.5-5.0) g/dL - ABG Interpretation ABG results: ABG ABG pH 7.21 pH Units (7.32-7.45) L 08/24/17 05:23 ABG pCO2 65 mmHg (35-45) H 08/24/17 05:23 ABG pO2 193 mmHg (85-104) H 08/24/17 05:23 ABG O2 Saturation 99 % (95-98) H 08/24/17 05:23 PT/INR, D-dimer PT 10.6 Seconds (9.4-12.1) 08/25/17 04:06 - VTE Documentation of Mechanical Device: Graduated compression elastic hosiery Consult Discharge Plan - Plan Referrals: Nallely Hanna, CAPPING MACHINE OPERATOR [Primary Care Provider] -
[2017-08-25] MEDS: Isosorbide MONOnitrate (24 HR) 30 MG TAB.ER.24H PO SCH (13:29)
[2017-08-25] MEDS: Cholecalciferol (D-3) 1,000 UNIT TABLET PO SCH (13:44)
[2017-08-26] MEDS: Ipratropium/Albuterol Neb 3 ML IH SCH ×6 (03:49→23:39)
[2017-08-26 06:54] LABS: Calcium 8.7 mg/dL (8.6-10.8); Magnesium 1.8 mg/dL (1.6-2.6); Phosphorous 3.6 mg/dL (2.3-4.7); Potassium 3.6 mEq/L (3.5-4.5)
[2017-08-26 06:56] LABS: Basophils % 0.3 %; Eosinophils % 0.3 %; Hematocrit 27.3 % (37.5-50.1); Hemoglobin 8.9 g/dL (12.9-16.9); Immature Granulocytes % 0.5 % (0-4); Lymphocytes # 3.4 K/mcL (0.6-4.6); Lymphocytes % 30.7 %; Mean Corpuscular HGB Conc 32.6 g/dL (31.6-35.5); Mean Corpuscular Hemoglobin 28.6 pg (28.0-33.3); Mean Corpuscular Volume 87.8 fL (83.0-100.0); Monocytes # 0.8 K/mcL (0.0-1.3); Monocytes % 6.9 %; Neutrophils # 6.8 K/mcL (1.6-8.9); Platelet Count 251 K/mcL (140-400); Red Blood Count 3.11 M/mcL (4.19-5.50); Red Cell Distribution Width 14.2 % (11.5-14.5); Segmented Neutrophils % 61.3 %
[2017-08-26] MEDS: Budesonide/Formoterol 80/4.5 MDI IH SCH ×2 (07:22→19:46)
[2017-08-26] MEDS: hydrOXYzine pamoate 25 MG CAPSULE PO SCH ×3 (07:56→21:37)
[2017-08-26] MEDS: traMADol 50 MG TABLET PO PRN ×3 (07:57→21:37)
[2017-08-26] MEDS: Ondansetron ODT 4 MG TAB.RAPDIS PO SCH ×2 (07:57→21:37)
[2017-08-26] MEDS: Furosemide 40 MG TABLET PO SCH ×2 (07:57→17:24)
[2017-08-26] MEDS: Calcium Acetate 667 MG CAPSULE PO SCH ×3 (07:57→17:24)
[2017-08-26] MEDS: Gabapentin 300 MG CAPSULE PO SCH ×3 (07:58→21:37)
[2017-08-26] MEDS: Aspirin 81 MG TAB.CHEW PO SCH (07:58)
[2017-08-26] MEDS: tiZANidine 4 MG TABLET PO SCH ×3 (07:58→21:37)
[2017-08-26] MEDS: BuPROPion SR (12 HR) 150 MG TABLET PO SCH ×2 (07:58→21:37)
[2017-08-26] MEDS: Isosorbide MONOnitrate (24 HR) 30 MG TAB.ER.24H PO SCH (07:58)
[2017-08-26] MEDS: Cholecalciferol (D-3) 1,000 UNIT TABLET PO SCH (07:59)
--- NOTE | 2017-08-26 08:03 | Nephrology Progress Note ---
Date of Encounter: 08/26/17 Time of Encounter: 08:00 - Assessment and Plan (1) ESRD (end stage renal disease) on dialysis Current Visit: Yes Status: Chronic 4600ml removed with dialysis yesterday Plan for UF today followed by HD tomorrow Continue renal diet Avoid nephrotoxins if possible. (2) Acute respiratory failure Current Visit: Yes Status: Acute Chest xray: Stable chest with cardiomegaly, right basilar airspace disease and right-sided pleural effusion. No significant interval change in the pulmonary edema pattern. Qualifiers: Respiratory failure complication: hypoxia Qualified Code(s): J96.01 - Acute respiratory failure with hypoxia (3) H/O noncompliance with medical treatment, presenting hazards to health Current Visit: No Status: Chronic (4) Hyponatremia Current Visit: No Status: Acute Na+ 132 Subjective Principal diagnosis: ESRD, Shortness of breath Interval history: Patient seen and examined. States he is feeling much better today. Objective - Vital Signs Vital signs: Vital Signs Temp Pulse Resp BP Pulse Ox 08/26/17 07:48 98.2 F 70 14 153/84 99 08/26/17 07:23 16 95 08/26/17 04:17 97.8 F 74 16 158/88 08/26/17 02:57 66 16 98 08/26/17 00:17 97.8 F 67 16 131/81 98 08/25/17 23:10 16 95 08/25/17 21:09 96 08/25/17 20:21 18 97 08/25/17 20:19 65 15 96 08/25/17 18:36 98.3 F 66 15 119/70 96 08/25/17 17:10 71 16 122/76 94 08/25/17 16:29 20 93 08/25/17 16:16 98.4 F 77 16 122/68 95 08/25/17 14:53 80 08/25/17 13:31 80 16 111/77 96 08/25/17 13:30 98.2 F 75 17 111/77 96 08/25/17 12:45 97.9 F 20 143/78 08/25/17 12:30 135/79 08/25/17 12:15 140/78 08/25/17 12:00 128/73 08/25/17 11:45 113/70 08/25/17 11:30 139/70 08/25/17 11:15 125/74 08/25/17 11:00 126/71 08/25/17 10:45 118/69 08/25/17 10:30 129/77 08/25/17 10:15 141/67 08/25/17 10:00 115/74 08/25/17 09:45 121/72 08/25/17 09:30 111/67 08/25/17 09:15 129/79 08/25/17 09:00 97.6 F 18 132/72 08/25/17 08:04 18 94 Intake and Output 08/25/17 08/26/17 08/26/17 23:59 07:59 15:59 Intake Total 322 / 322 120 / 120 Output Total 100 / 100 Balance 322 / 322 20 / 20 Intake: IV Fluids 82 / 82 Nitroglycerin Premix 25 MG/250 82 / 82 ML 25 mg In 250 ml @ 10 MCG/MIN 6 mls/hr IVC .Q24H ROWAN Rx#: [id number] Oral 240 / 240 120 / 120 Output: Urine 100 / 100 Other: Meal Dinner Percent of Meal Consumed 100% # Bowel Movements 1 Weight 82.1 kg Blood Glucose* 119 Patient Weight 08/26/17 23:59 Weight 82.1 kg - General Appearance General appearance: Present: well-developed, well-nourished, obese EENT: Present: ATNC, mucous membranes moist, hearing intact, vision intact Neck: Present: supple Respiratory: Present: clear Cardiology: Present: no edema, normal S1, normal S2 Dialysis Vascular Access: Venous Catheter Gastrointestinal: Present: no tenderness, no guarding, obese Integumentary: Present: warm and dry Neurologic: Present: alert and oriented x3 Psychiatric: Present: mood/affect appropriate, cooperative - Lab 08/26/17 06:03 08/26/17 06:03 Most recent lab results ABG pH 7.21 pH Units (7.32-7.45) L 08/24/17 05:23 ABG pCO2 65 mmHg (35-45) H 08/24/17 05:23 ABG pO2 193 mmHg (85-104) H 08/24/17 05:23 ABG HCO3 26 mEq/L (21-27) 08/24/17 05:23 ABG O2 Saturation 99 % (95-98) H 08/24/17 05:23 Calcium 8.7 mg/dL (8.6-10.8) 08/26/17 06:03 Phosphorus 3.6 mg/dL (2.3-4.7) 08/26/17 06:03 Magnesium 1.8 mg/dL (1.6-2.6) 08/26/17 06:03 - VTE Documentation of Mechanical Device: Graduated compression elastic hosiery Consult Discharge Plan - Plan Referrals: Nallely Hanna, NECK BAND SETTER [Primary Care Provider] -
[2017-08-26] MEDS ORDERED: 0.9 % Sodium Chloride 250 ML IVC PRN (08:18)
[2017-08-26] MEDS ORDERED: *HR* Heparin 10,000 UNIT/10 ML VIAL IV PRN (08:31)
[2017-08-26] MEDS ORDERED: 0.9 % Sodium Chloride 2,000 ML ONE (08:38)
[2017-08-26] MEDS ORDERED: 0.9 % Sodium Chloride 1,000 ML PRIME SCH (08:45)
--- NOTE | 2017-08-26 10:53 | Internal Med Progress Note ---
Date of Encounter: 08/26/17 Time of Encounter: 09:15 - Assessment and plan (1) Acute and chronic respiratory failure ([id number]) Current Visit: No Status: Acute Assessment and plan: Likely secondary to volume overload secondary to dietary and medical noncompliance currently receiving hemodialysis and reports of improvement in his respiratory status patient educated about dietary and medical compliance O2 supplementation as needed patient requesting CPAP at bedtime after discharge, however as per records, patient has history of noncompliance and not following up with sleep studies awaiting overnight bipap study requested. will continue to closely monitor respiratory status Qualifiers: Respiratory failure complication: unspecified whether with hypoxia or hypercapnia Qualified Code(s): J96.20 - Acute and chronic respiratory failure , unspecified whether with hypoxia or hypercapnia (2) Pulmonary edema Current Visit: No Status: Acute Assessment and plan: as listed above Qualifiers: Chronicity: acute Qualified Code(s): J81.0 - Acute pulmonary edema (3) Anemia in ESRD (end-stage renal disease) Current Visit: No Status: Chronic Assessment and plan: H&H low but acceptable no acute bleeding reported at this time will continue to monitor (4) CAD (coronary artery disease) Current Visit: No Status: Chronic Assessment and plan: no acute signs of angina present continue ASA, BB, statin Qualifiers: Coronary Disease-Associated Artery/Lesion type: [place] artery [place] vs. transplanted heart: [place] heart Associated angina: without angina Qualified Code(s): I25.10 - Atherosclerotic heart disease of [place] coronary artery without angina pectoris (5) CHF (congestive heart failure) Current Visit: No Status: Chronic Assessment and plan: continue home medications Qualifiers: Congestive heart failure type: diastolic Congestive heart failure chronicity: acute on chronic Qualified Code(s): I50.33 - Acute on chronic diastolic (congestive) heart failure (6) COPD (chronic obstructive pulmonary disease) Current Visit: No Status: Chronic Assessment and plan: overnight bipap study requested continue home meds Qualifiers: COPD type: unspecified COPD Qualified Code(s): J44.9 - Chronic obstructive pulmonary disease, unspecified (7) ESRD (end stage renal disease) on dialysis Current Visit: No Status: Chronic Assessment and plan: Nephrology consultation on board and appreciated continue HD as per nephrology recommendations (8) Fluid overload Current Visit: No Status: Acute 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 and plan: 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 for volume removal Qualifiers: Hypervolemia type: other Qualified Code(s): E87.79 - Other fluid overload (9) H/O noncompliance with medical treatment, presenting hazards to health Current Visit: No Status: Chronic Assessment and plan: patient educated about the need to stay compliant (10) HTN (hypertension) Current Visit: No Status: Chronic Qualifiers: Hypertension type: essential hypertension Qualified Code(s): I10 - Essential (primary) hypertension (11) Hyponatremia Current Visit: No Status: Chronic Assessment and plan: Hypervolumic hyponatremia continue to closely monitor currently receiving 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 Reports of feeling better compared to previous day. Noted to have improvement in respiratory status. No overnight issues reported. Likely d/c after HD in am - Constitutional Vitals: Temp Pulse Resp BP Pulse Ox 97.9 F 77 22 99/59 99 08/26/17 08:50 08/26/17 08:28 08/26/17 08:50 08/26/17 10:20 08/26/17 07:48 General appearance: Present: A&O X 3, no acute distress, obese, answers questions appropriately - Head Head exam: Present: atraumatic, normocephalic - Eye Eye exam: Present: conjuntiva pink, sclera anicteric - Respiratory Respiratory exam: Present: decreased breath sounds. Absent: respiratory distress, wheezes - Cardiovascular Cardiovascular exam: Present: RRR, +S1, +S2. Absent: diastolic murmur, gallop, rubs, systolic murmur - GI/Abdominal GI/Abdominal exam: Present: normal bowel sounds, soft, no peritoneal signs. Absent: distended, tenderness - Extremities Exam Extremities exam: Present: pedal edema, warm, radial pulses palpable and symmetrical. Absent: calf tenderness - Neurological Exam Neurological exam: Present: alert, oriented X3 - Psychiatric Psychiatric exam: Present: normal affect, normal mood Internal Medicine: Result - Labs CBC & Chem 7: 08/26/17 06:03 08/26/17 06:03 Labs: Short CBC 08/26/17 Range/Units 06:03 WBC 11.0 (4.3-11.1) K/mcL Hgb 8.9 L (12.9-16.9) g/dL Hct 27.3 L (37.5-50.1) % Plt Count 251 (140-400) K/mcL Neutrophils # 6.8 (1.6-8.9) K/mcL BMP 08/25/17 08/26/17 18:51 06:03 Sodium 133 L D 132 L Potassium 3.6 Chloride 95 L Carbon Dioxide 30 H BUN 23 D Creatinine 3.76 H Glucose 74 Calcium 8.7 - ABG Interpretation ABG results: ABG ABG pH 7.21 pH Units (7.32-7.45) L 08/24/17 05:23 ABG pCO2 65 mmHg (35-45) H 08/24/17 05:23 ABG pO2 193 mmHg (85-104) H 08/24/17 05:23 ABG O2 Saturation 99 % (95-98) H 08/24/17 05:23 PT/INR, D-dimer PT 10.6 Seconds (9.4-12.1) 08/25/17 04:06 - Impressions Impressions Chest X-Ray 08/25/17 08:12 IMPRESSION: Stable chest with cardiomegaly, right basilar airspace disease and right-sided pleural effusion. No significant interval change in the pulmonary edema pattern. D/ / Isaac Villatoro MD / Isaac Villatoro MD Interpreting Provider: Isaca Villatoro MD - VTE Documentation of Mechanical Device: Graduated compression elastic hosiery Consult Discharge Plan - Plan Referrals: Nallely Hnana, PRICING ASSOCIATE [Primary Care Provider] -
[2017-08-26] MEDS ORDERED: *HR* Morphine 2 MG/ML SYRINGE IVP ONE ×2 (16:05→23:18)
[2017-08-27] MEDS: Ipratropium/Albuterol Neb 3 ML IH SCH ×6 (03:47→23:28)
[2017-08-27 05:11] LABS: Basophils # 0.1 K/mcL (0.0-0.2); Basophils % 0.4 %; Eosinophils # 0.1 K/mcL (0.0-0.6); Eosinophils % 1.1 %; Hematocrit 27.1 % (37.5-50.1); Hemoglobin 8.5 g/dL (12.9-16.9); Immature Granulocytes % 0.6 % (0-4); Lymphocytes # 3.9 K/mcL (0.6-4.6); Lymphocytes % 30.6 %; Mean Corpuscular HGB Conc 31.4 g/dL (31.6-35.5); Mean Corpuscular Volume 89.1 fL (83.0-100.0); Mean Platelet Volume 9.7 fL (9.4-12.4); Monocytes % 7.9 %; Neutrophils # 7.5 K/mcL (1.6-8.9); Platelet Count 231 K/mcL (140-400); Red Blood Count 3.04 M/mcL (4.19-5.50); Red Cell Distribution Width 14.2 % (11.5-14.5); Segmented Neutrophils % 59.4 %
[2017-08-27 05:22] LABS: Calcium 8.4 mg/dL (8.6-10.8); Magnesium 1.6 mg/dL (1.6-2.6); Potassium 3.8 mEq/L (3.5-4.5)
[2017-08-27] MEDS: traMADol 50 MG TABLET PO PRN (05:44)
[2017-08-27] MEDS ORDERED: 0.9 % Sodium Chloride 250 ML IVC PRN (06:00)
[2017-08-27] MEDS: tiZANidine 4 MG TABLET PO SCH ×3 (09:36→20:06)
[2017-08-27] MEDS: Isosorbide MONOnitrate (24 HR) 30 MG TAB.ER.24H PO SCH (09:36)
[2017-08-27] MEDS: Calcium Acetate 667 MG CAPSULE PO SCH ×3 (09:37→16:56)
[2017-08-27] MEDS: hydrOXYzine pamoate 25 MG CAPSULE PO SCH ×3 (09:37→20:06)
[2017-08-27] MEDS: Cholecalciferol (D-3) 1,000 UNIT TABLET PO SCH (09:37)
[2017-08-27] MEDS: Aspirin 81 MG TAB.CHEW PO SCH (09:37)
[2017-08-27] MEDS: BuPROPion SR (12 HR) 150 MG TABLET PO SCH ×2 (09:37→20:06)
[2017-08-27] MEDS: Gabapentin 300 MG CAPSULE PO SCH ×3 (09:37→20:06)
[2017-08-27] MEDS: Furosemide 40 MG TABLET PO SCH ×2 (09:40→16:56)
[2017-08-27] MEDS: Ondansetron ODT 4 MG TAB.RAPDIS PO SCH ×2 (09:41→20:06)
[2017-08-27] MEDS: Budesonide/Formoterol 80/4.5 MDI IH SCH ×2 (10:42→19:52)
--- NOTE | 2017-08-27 10:55 | Nephrology Progress Note ---
Date of Encounter: 08/27/17 Time of Encounter: 10:00 - Assessment and Plan (1) ESRD (end stage renal disease) on dialysis Current Visit: Yes Status: Chronic HD today for clearance and volume mgt. TDC appears to be working well I have been challenging his weight by alternating HD with UF on a daily basis. He should have a standing weight checked after HD today. I counseled him to follow a fluid restriction. Of note I found an empty large plastic soda container in his bed sheets. Next HD would be planned for Friday, if he remains admitted. He likely does not need UF tomorrow, but if he happens still be admitted here, then I'll further challenge his weight with UF tomorrow. Of note, the left guillen hematoma was noted today on exam. He said that he "bumped " it on a WC yesterday. I've stopped the heparin while on HD, but otherwise will defer to Primary. (2) HTN (hypertension) Current Visit: Yes Status: Chronic Hold AM antihypertensive meds on // so as to help remove more volume with each dialysis treatment. Qualifiers: Hypertension type: secondary to other renal disorders Qualified Code(s): I15.1 - Hypertension secondary to other renal disorders; N28.89 - Other specified disorders of kidney and ureter; N28.89 - Other specified disorders of kidney and ureter (3) Acute respiratory failure Current Visit: Yes Status: Acute As per primary. Of note, he does have a right pleural effusion. Does this need tapped? HD and UF procedures only can remove fluid from the venous space so this pleural effusion may need further exploration. Will defer to primary team. Qualifiers: Respiratory failure complication: hypoxia Qualified Code(s): J96.01 - Acute respiratory failure with hypoxia (4) Depression Current Visit: No Status: Chronic As per primary Qualifiers: Depression Type: unspecified Qualified Code(s): F32.9 - Major depressive disorder, single episode, unspecified (5) H/O noncompliance with medical treatment, presenting hazards to health Current Visit: No Status: Chronic Advised proper fluid restriction and dietary compliance. (6) Hyponatremia Current Visit: No Status: Acute acute on chronic. Being controlled better with fluid removal on a daily basis. Must follow the fluid restriction, but I found that he's still sneaking extra fluids (see subjective portion of my note). (7) Anemia in chronic kidney disease Current Visit: No Status: Chronic Goal Hgb is 10-11. Will monitor Hgb and provide IV iron and/or TAISHA as needed. Qualifiers: Chronic kidney disease stage: on chronic dialysis Qualified Code(s): N18.6 - End stage renal disease; D63.1 - Anemia in chronic kidney disease; Z99.2 - Dependence on renal dialysis Subjective Principal diagnosis: ESRD, Shortness of breath Interval history: Pt was s/e and did not affirm N/V/D and he said that his shortness of breath is improving. He reported that he bumped his Left Guillen yesterday and now has a large bruise. Objective - Vital Signs Vital signs: Vital Signs Temp Pulse Resp BP Pulse Ox 08/27/17 10:35 106/56 08/27/17 10:05 111/47 08/27/17 09:35 140/105 08/27/17 09:05 160/85 08/27/17 08:35 154/86 08/27/17 08:05 142/82 08/27/17 07:35 98 F 18 156/92 08/27/17 06:38 97.7 F 69 17 161/85 94 08/27/17 03:42 97.8 F 66 16 141/74 95 08/26/17 23:39 18 96 08/26/17 23:38 96 08/26/17 23:34 98.0 F 63 16 123/70 95 08/26/17 20:17 98.5 F 70 16 135/76 90 08/26/17 19:46 16 90 08/26/17 17:06 97.5 F L 69 16 113/57 91 08/26/17 16:47 16 89 08/26/17 11:25 97.4 F L 59 12 133/81 100 08/26/17 10:57 97.5 F L 110/72 Intake and Output 08/26/17 08/27/17 08/27/17 23:59 07:59 15:59 Intake Total 600 / 600 0 / 0 Output Total 2 / 2 0 / 0 Balance -2 / -2 600 / 600 0 / 0 Intake: Oral 0 / 0 0 / 0 Intake, Rinseback and Flushes 600 / 600 Output: Urine 2 / 2 0 / 0 Other: Weight 73.121 kg Blood Glucose* 106 83 Hemodialysis Net Fluid Removed 0 3525 (mL) Patient Weight 08/27/17 23:59 Weight 73.121 kg - General Appearance General appearance: Present: chronically ill, fatigue, frail Exam: unkempt hair and sidhu. He appears older than stated age EENT: Present: ATNC, PERRL, mucous membranes moist Neck: Present: supple Respiratory: Present: rhonchi (in the bilateral bases) Cardiology: Present: edema (trace pedal edema with wrinkling), regular rate, regular rhythm, normal S1, normal S2 Dialysis Vascular Access: Venous Catheter (Left TDC without exudates) Gastrointestinal: Present: normoactive bowel sounds, no tenderness, no guarding , obese Integumentary: Present: ecchymotic (with a large oval shaped, left guillen hematoma. I draw a dotted outline with a black marker. TTP. ) Neurologic: Present: no focal deficit, no asterixis, alert and oriented x3 Musculoskeletal: Present: deformities (kyphosis of neck) Psychiatric: Present: mood/affect appropriate, cooperative - Lab 08/27/17 04:51 08/27/17 04:51 Most recent lab results ABG pH 7.21 pH Units (7.32-7.45) L 08/24/17 05:23 ABG pCO2 65 mmHg (35-45) H 08/24/17 05:23 ABG pO2 193 mmHg (85-104) H 08/24/17 05:23 ABG HCO3 26 mEq/L (21-27) 08/24/17 05:23 ABG O2 Saturation 99 % (95-98) H 08/24/17 05:23 Calcium 8.4 mg/dL (8.6-10.8) L 08/27/17 04:51 Phosphorus 4.0 mg/dL (2.3-4.7) 08/27/17 04:51 Magnesium 1.6 mg/dL (1.6-2.6) 08/27/17 04:51 - VTE Documentation of Mechanical Device: Graduated compression elastic hosiery Consult Discharge Plan - Plan Referrals: Nallely Hanna, CLINICAL SPECIALTY REP [Primary Care Provider] -
[2017-08-27] MEDS ORDERED: 0.9 % Sodium Chloride 1,000 ML ONE (13:32)
[2017-08-27] MEDS ORDERED: *HR* Heparin 10,000 UNIT/10 ML VIAL IV PRN (13:34)
--- NOTE | 2017-08-27 16:03 | Internal Med Progress Note ---
Date of Encounter: 08/27/17 Time of Encounter: 15:15 - Assessment and plan (1) Acute and chronic respiratory failure ([id number]) Current Visit: No Status: Acute Assessment and plan: Likely secondary to volume overload secondary to dietary and medical noncompliance currently receiving hemodialysis and reports of improvement in his respiratory status patient educated about dietary and medical compliance O2 supplementation as needed Given persistent right sided pleural effusion despite dialysis, IR consulted for thoracentesis. Concern for underlying infectious etiology/loculated effusion Qualifiers: Respiratory failure complication: unspecified whether with hypoxia or hypercapnia Qualified Code(s): J96.20 - Acute and chronic respiratory failure , unspecified whether with hypoxia or hypercapnia (2) Pulmonary edema Current Visit: No Status: Acute Assessment and plan: as listed above Qualifiers: Chronicity: acute Qualified Code(s): J81.0 - Acute pulmonary edema (3) Anemia in ESRD (end-stage renal disease) Current Visit: No Status: Chronic Assessment and plan: H&H low but acceptable no acute bleeding reported at this time will continue to monitor (4) CAD (coronary artery disease) Current Visit: No Status: Chronic Assessment and plan: no acute signs of angina present continue ASA, BB, statin Qualifiers: Coronary Disease-Associated Artery/Lesion type: [place] artery [place] vs. transplanted heart: [place] heart Associated angina: without angina Qualified Code(s): I25.10 - Atherosclerotic heart disease of [place] coronary artery without angina pectoris (5) CHF (congestive heart failure) Current Visit: No Status: Chronic Assessment and plan: continue home medications Qualifiers: Congestive heart failure type: diastolic Congestive heart failure chronicity: acute on chronic Qualified Code(s): I50.33 - Acute on chronic diastolic (congestive) heart failure (6) COPD (chronic obstructive pulmonary disease) Current Visit: No Status: Chronic Assessment and plan: overnight bipap continue home meds Qualifiers: COPD type: unspecified COPD Qualified Code(s): J44.9 - Chronic obstructive pulmonary disease, unspecified (7) ESRD (end stage renal disease) on dialysis Current Visit: No Status: Chronic Assessment and plan: Nephrology consultation on board and appreciated continue HD as per nephrology recommendations (8) Fluid overload Current Visit: No Status: Acute 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 plan: 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 for volume removal Qualifiers: Hypervolemia type: other Qualified Code(s): E87.79 - Other fluid overload (9) H/O noncompliance with medical treatment, presenting hazards to health Current Visit: No Status: Chronic (10) HTN (hypertension) Current Visit: No Status: Chronic Assessment and plan: BP within acceptable range continue home meds hold antihypertensives on MWF prior to dialysis Qualifiers: Hypertension type: essential hypertension Qualified Code(s): I10 - Essential (primary) hypertension (11) Hyponatremia Current Visit: No Status: Chronic Assessment and plan: Hypervolumic hyponatremia-improving continue to closely monitor nephrology on board and consultation appreciated will continue to closely monitor (12) DEE (obstructive sleep apnea) Current Visit: No Status: Chronic (13) DVT prophylaxis Current Visit: No Status: Acute Assessment and plan: Heparin SQ (14) Hematoma of left lower extremity Current Visit: Yes Status: Acute Assessment and plan: secondary to accidental injury supportive care pain control will closely monitor Qualifiers: Encounter type: initial encounter Qualified Code(s): S80.12XA - Contusion of left lower leg, initial encounter - Subjective Interval history: Pt seen and examined at bedside. Resting in bed and noted to be more short of breath compared to previous day. Reports of getting worsening dyspnea with minimal exertion. Saturation appropriately on nasal cannula. CXR consistent with right pleural effusion that is persistent despite multiple dialysis sessions. Will obtain IR consultation for right sided thoracentesis, concern for an loculated effusion. Pt also sustained an injury to left distal lateral leg on his way back from dialysis yesterday resulting in a superficial hematoma. Xray negative for any acute fractures and consistent with a hematoma over the lateral aspect of the distal left leg. No overnight issues reported. - Constitutional Vitals: Temp Pulse Resp BP Pulse Ox 97 F L 69 18 112/54 94 08/27/17 11:25 08/27/17 06:38 08/27/17 07:35 08/27/17 11:25 08/27/17 06:38 General appearance: Present: A&O X 3, no acute distress, obese, answers questions appropriately - Head Head exam: Present: atraumatic, normocephalic - Eye Eye exam: Present: conjuntiva pink, sclera anicteric - Respiratory Respiratory exam: Present: decreased breath sounds. Absent: respiratory distress, wheezes - Cardiovascular Cardiovascular exam: Present: RRR, +S1, +S2. Absent: diastolic murmur, gallop, rubs, systolic murmur - GI/Abdominal GI/Abdominal exam: Present: normal bowel sounds, soft, no peritoneal signs. Absent: distended, tenderness - Extremities Exam Extremities exam: Present: warm, radial pulses palpable and symmetrical. Absent : calf tenderness (distal left leg hematoma-improving from previous day) - Neurological Exam Neurological exam: Present: alert, oriented X3 Internal Medicine: Result - Labs CBC & Chem 7: 08/27/17 04:51 08/27/17 04:51 Labs: Short CBC 08/27/17 Range/Units 04:51 WBC 12.6 H (4.3-11.1) K/mcL Hgb 8.5 L (12.9-16.9) g/dL Hct 27.1 L (37.5-50.1) % Plt Count 231 (140-400) K/mcL Neutrophils # 7.5 (1.6-8.9) K/mcL BMP 08/27/17 04:51 Sodium 131 L Potassium 3.8 Chloride 95 L Carbon Dioxide 26 BUN 33 H D Creatinine 5.03 H Glucose 70 Calcium 8.4 L - ABG Interpretation ABG results: ABG ABG pH 7.21 pH Units (7.32-7.45) L 08/24/17 05:23 ABG pCO2 65 mmHg (35-45) H 08/24/17 05:23 ABG pO2 193 mmHg (85-104) H 08/24/17 05:23 ABG O2 Saturation 99 % (95-98) H 08/24/17 05:23 PT/INR, D-dimer PT 10.6 Seconds (9.4-12.1) 08/25/17 04:06 - VTE Documentation of Mechanical Device: Graduated compression elastic hosiery Consult Discharge Plan - Plan Referrals: Nallely Hanna, ADON [Primary Care Provider] -
[2017-08-28] MEDS: Ipratropium/Albuterol Neb 3 ML IH SCH ×4 (04:34→16:03)
[2017-08-28 07:02] LABS: Basophils % 0.4 %; Eosinophils # 0.2 K/mcL (0.0-0.6); Eosinophils % 1.9 %; Hematocrit 30.2 % (37.5-50.1); Hemoglobin 9.5 g/dL (12.9-16.9); Immature Granulocytes % 0.6 % (0-4); Lymphocytes # 2.4 K/mcL (0.6-4.6); Lymphocytes % 23.6 %; Mean Corpuscular HGB Conc 31.5 g/dL (31.6-35.5); Mean Corpuscular Hemoglobin 28.1 pg (28.0-33.3); Mean Corpuscular Volume 89.3 fL (83.0-100.0); Mean Platelet Volume 9.8 fL (9.4-12.4); Monocytes # 0.9 K/mcL (0.0-1.3); Monocytes % 8.6 %; Neutrophils # 6.5 K/mcL (1.6-8.9); Platelet Count 238 K/mcL (140-400); Red Blood Count 3.38 M/mcL (4.19-5.50); Red Cell Distribution Width 14.3 % (11.5-14.5); Segmented Neutrophils % 64.9 %
[2017-08-28 07:13] LABS: Calcium 8.6 mg/dL (8.6-10.8); Magnesium 1.7 mg/dL (1.6-2.6); Phosphorous 3.2 mg/dL (2.3-4.7); Potassium 3.7 mEq/L (3.5-4.5)
[2017-08-28] MEDS: Budesonide/Formoterol 80/4.5 MDI IH SCH (07:46)
--- NOTE | 2017-08-28 08:29 | Nephrology Progress Note ---
Date of Encounter: 08/28/17 Time of Encounter: 08:27 - Assessment and Plan (1) ESRD (end stage renal disease) on dialysis Current Visit: Yes Status: Chronic IR consult pending for possible thorocentesis Will re-evaluate need for UF today after IR has determined whether or not to do a thorocentesis Continue renal diet Avoid nephrotoxins if possible. (2) Acute respiratory failure Current Visit: Yes Status: Acute per primary team Qualifiers: Respiratory failure complication: hypoxia Qualified Code(s): J96.01 - Acute respiratory failure with hypoxia (3) H/O noncompliance with medical treatment, presenting hazards to health Current Visit: No Status: Chronic Grossly non-compliant with meds, diet, and dialysis (4) Hyponatremia Current Visit: No Status: Acute Na+ 133-improving Subjective Principal diagnosis: ESRD, Shortness of breath Interval history: Patient seen and examined. States he feels today. Objective - Vital Signs Vital signs: Vital Signs Temp Pulse Resp BP Pulse Ox 08/28/17 07:46 16 91 08/28/17 07:43 98.3 F 69 17 158/81 92 08/28/17 03:53 98.4 F 67 16 137/78 98 08/28/17 00:19 98.2 F 55 18 117/64 95 08/27/17 23:28 17 90 08/27/17 20:29 97.6 F 60 16 124/71 90 08/27/17 19:54 14 94 08/27/17 19:53 98 08/27/17 16:34 98.0 F 63 20 132/74 90 08/27/17 16:02 16 92 08/27/17 11:25 97 F L 112/54 08/27/17 11:05 105/71 08/27/17 10:35 106/56 08/27/17 10:05 111/47 08/27/17 09:35 140/105 08/27/17 09:05 160/85 08/27/17 08:35 154/86 Intake and Output 08/27/17 08/28/17 08/28/17 23:59 07:59 15:59 Other: Weight 73.3 kg Blood Glucose* 85 76 Patient Weight 08/28/17 23:59 Weight 73.3 kg - General Appearance General appearance: Present: well-developed, well-nourished, obese EENT: Present: ATNC, mucous membranes moist, hearing intact, vision intact Neck: Present: supple Respiratory: Present: clear Cardiology: Present: no edema, normal S1, normal S2 Dialysis Vascular Access: Venous Catheter Gastrointestinal: Present: no tenderness, no guarding, obese Integumentary: Present: warm and dry Neurologic: Present: alert and oriented x3 Psychiatric: Present: mood/affect appropriate, cooperative - Lab 08/28/17 06:28 08/28/17 06:28 Most recent lab results ABG pH 7.21 pH Units (7.32-7.45) L 08/24/17 05:23 ABG pCO2 65 mmHg (35-45) H 08/24/17 05:23 ABG pO2 193 mmHg (85-104) H 08/24/17 05:23 ABG HCO3 26 mEq/L (21-27) 08/24/17 05:23 ABG O2 Saturation 99 % (95-98) H 08/24/17 05:23 Calcium 8.6 mg/dL (8.6-10.8) 08/28/17 06:28 Phosphorus 3.2 mg/dL (2.3-4.7) 08/28/17 06:28 Magnesium 1.7 mg/dL (1.6-2.6) 08/28/17 06:28 - VTE Documentation of Mechanical Device: Graduated compression elastic hosiery Consult Discharge Plan - Plan Referrals: Nallely Hanna CNP [Primary Care Provider] -
[2017-08-28] MEDS: Calcium Acetate 667 MG CAPSULE PO SCH ×3 (10:11→17:10)
[2017-08-28] MEDS: Aspirin 81 MG TAB.CHEW PO SCH (10:21)
[2017-08-28] MEDS: Isosorbide MONOnitrate (24 HR) 30 MG TAB.ER.24H PO SCH (10:21)
[2017-08-28] MEDS: hydrOXYzine pamoate 25 MG CAPSULE PO SCH ×2 (10:21→17:00)
[2017-08-28] MEDS: Furosemide 40 MG TABLET PO SCH ×2 (10:21→17:00)
[2017-08-28] MEDS: tiZANidine 4 MG TABLET PO SCH ×2 (10:21→16:59)
[2017-08-28] MEDS: Cholecalciferol (D-3) 1,000 UNIT TABLET PO SCH (10:21)
[2017-08-28] MEDS: Ondansetron ODT 4 MG TAB.RAPDIS PO SCH (10:21)
[2017-08-28] MEDS: BuPROPion SR (12 HR) 150 MG TABLET PO SCH (10:21)
[2017-08-28] MEDS: Gabapentin 300 MG CAPSULE PO SCH (10:21)
[2017-08-28] MEDS ORDERED: Gabapentin 100 MG CAPSULE PO SCH (15:00)
[2017-08-28 15:38] LABS: RBC,Pleural Fluid 0.014 M/mcL
[2017-08-28 15:39] LABS: Appearance of Pleural Fl Clear (Clear)
[2017-08-28 15:51] LABS: Amylase,Pleural Fluid 91 Units/L (No Ref Range); Glucose,Pleural Fluid 50 mg/dL (No Ref Range); LDH,Pleural Fluid 114 Units/L (No Ref Range); Total Protein,Pleural Fluid 1.9 g/dL (No Ref Range)
--- NOTE | 2017-08-28 16:01 | Discharge Summary ---
Date of Encounter: 08/28/17 Time of Encounter: 15:09 - Discharge Diagnosis (1) Acute and chronic respiratory failure ([id number]) Priority: Primary Status: Acute Qualifiers: Respiratory failure complication: unspecified whether with hypoxia or hypercapnia Qualified Code(s): J96.20 - Acute and chronic respiratory failure , unspecified whether with hypoxia or hypercapnia (2) Pulmonary edema Priority: Primary Status: Acute Qualifiers: Chronicity: acute Qualified Code(s): J81.0 - Acute pulmonary edema (3) Anemia in ESRD (end-stage renal disease) Priority: Secondary Status: Chronic (4) CAD (coronary artery disease) Priority: Secondary Status: Chronic Qualifiers: Coronary Disease-Associated Artery/Lesion type: [place] artery [place] vs. transplanted heart: [place] heart Associated angina: without angina Qualified Code(s): I25.10 - Atherosclerotic heart disease of [place] coronary artery without angina pectoris (5) CHF (congestive heart failure) Priority: Secondary Status: Chronic Qualifiers: Congestive heart failure type: diastolic Congestive heart failure chronicity: acute on chronic Qualified Code(s): I50.33 - Acute on chronic diastolic (congestive) heart failure (6) COPD (chronic obstructive pulmonary disease) Priority: Secondary Status: Chronic Qualifiers: COPD type: unspecified COPD Qualified Code(s): J44.9 - Chronic obstructive pulmonary disease, unspecified (7) ESRD (end stage renal disease) on dialysis Priority: Secondary Status: Chronic (8) Fluid overload Priority: Primary Status: Acute Qualifiers: Hypervolemia type: other Qualified Code(s): E87.79 - Other fluid overload (9) H/O noncompliance with medical treatment, presenting hazards to health Priority: Secondary Status: Chronic (10) HTN (hypertension) Priority: Secondary Status: Chronic Qualifiers: Hypertension type: essential hypertension Qualified Code(s): I10 - Essential (primary) hypertension (11) Hyponatremia Priority: Secondary Status: Chronic (12) DEE (obstructive sleep apnea) Priority: Secondary Status: Chronic (13) DVT prophylaxis Priority: Secondary Status: Acute (14) Hematoma of left lower extremity Priority: Secondary Status: Acute Qualifiers: Encounter type: initial encounter Qualified Code(s): S80.12XA - Contusion of left lower leg, initial encounter - Discharge Medications Home Medications: Citalopram [CeleXA] 40 mg PO DAILY 10/02/15 [History] Fluticasone/Salmeterol [Advair 250-50 Diskus] 1 puff IH BID 10/02/15 [History] Furosemide [Lasix] 40 mg PO BID 10/02/15 [History] Lidocaine Patch [Lidoderm 5% patch] 1 patch TP DAILY 10/02/15 [History] hydrOXYzine HCl [Hydroxyzine HCl] 25 mg PO TID 10/02/15 [History] Isosorbide MONOnitrate (24 HR) [Imdur] 30 mg PO DAILY #30 tab.er.24h 09/03/16 [ Rx] Ferrous Sulfate [Iron] 325 mg PO DAILY 10/04/16 [History] Ergocalciferol (VITAMIN D2) [Vitamin D2] 50,000 unit PO QWEEK 11/03/16 [History] Lisinopril [Zestril] 10 mg PO DAILY 11/03/16 [History] Simvastatin [Zocor] 40 mg PO HS 11/03/16 [History] Tizanidine HCl [Zanaflex] 4 mg PO TID 11/03/16 [History] Ipratropium/Albuterol Sulfate [Combivent Respimat Inhal [place]] 1 puff IH QID 04/28 [History] Aspirin 81 mg PO DAILY #30 tab.chew 11/24/16 [Rx] Albuterol Sulfate [Proair Hfa] 2 puff IH Q4H PRN 05/08/17 [History] BuPROPion SR (12 HR) [Wellbutrin SR] 150 mg PO BID 05/08/17 [History] Calcium Acetate [Phos-LO] 1,334 mg PO TIDWM 05/08/17 [History] Mupirocin [Bactroban Oint] 1 appl TP BID 05/08/17 [History] Ondansetron HCl [Zofran] 4 mg PO BID 05/08/17 [History] Sevelamer [Renvela] 2,400 mg PO TIDWM 05/08/17 [History] Tramadol HCl [Ultram] 50 mg PO TID PRN 05/08/17 [History] Ipratropium/Albuterol Neb [Duoneb] 3 ml IH Q4HR #90 vial.neb 07/25/17 [Rx] Carvedilol 12.5 mg PO BID 07/30/17 [History] Gabapentin [Neurontin] 600 mg PO BID 08/24/17 [History] Allergies/Adverse Reactions: 3 Allergy/AdvReac Type Severity Reaction Status Date / Time bee venom protein (honey bee) AdvReac Swelling Verified 06/30/17 04:08 of Lip/Tongue/Throat potassium AdvReac Vomiting Verified 06/30/17 04:08 prednisone AdvReac Vomiting Verified 06/30/17 04:08 Procedures/tests Complete & Pending: Procedures Performed prior 72 hours Category Date Time Status IR thoracentesis ultrasound [IR] Routine IR 08/28/17 Completed Date of admission: 08/24/17 07:44 Primary care physician: Nallely Hanna CNP Consults: 08/25/17 05:00 Consult to Dialysis [CONS] ONCE 08/26/17 08:30 Consult to Dialysis [CONS] ONCE 08/26/17 10:51 Consult to Physical Therapy [CONS] Routine Comment: Evaluate, develop and implement POC Reason for Consult: evaluation for placement 08/27/17 06:00 Consult to Dialysis [CONS] ONCE 08/27/17 13:45 Consult to Dialysis [CONS] ONCE 08/27/17 14:59 Consult to Interventional Radiology [CONS] Routine Consulting Provider: Radiology Interventional Cols Reason for Consult: Thoracentesis Time Notified: 15:00 Call Completed: Yes Discharging clinician: Coretta Claudio Anticipated date of discharge: 08/28/17 - Patient Status Disposition: Home, Self-Care Condition: Good Functional capacity at discharge: independent ambulation Overall status at discharge: patient is back to baseline - Discharge Instructions Follow Up With: Nallely Hanna CNP [Primary Care Provider] - 09/08/17 10:00 am Additional Instructions: Please follow up with your primary care physician and aircraft avionics technician within one week after your discharge from the hospital. Please continue with your outpatient hemodialysis on Friday. Resume all your home medications as prescribed by your primary care physician. - Diet and Activity Activity: increase activity as tolerated, wear oxygen at all times, wear oxygen at night Diet: low fat, low cholesterol, low salt diet Hospital course: Mr. Castro is a 52 year old male with extensive PMH including ESRD on HD who was admitted for acute respiratory failure secondary volume overload. Patient reported of missing his hemodialysis appointment and was binge drinking alcohol prior to his visit to the ER. He has a known history of medical and dietary noncompliance. On his first day of hospitalization, he refused hemodialysis. Nephrology followed the patient throughout the course of his hospitalization. Pt had daily HD alternating with UF. His respiratory status returned to baseline. His pleural effusion persisted despite HD due to which IR was consulted for thoracentesis. pt had right sided thoracentesis but were only able to drain 60cc of straw color fluid and repeat CXR showed persistent loculated effusion. Pt is currently at his baseline respiratory status. He is adamant about wanting to go home today. Pt will be closely followed by nephrology and his pleural fluid analysis will be followed by nephrology. He is to continue his HD on MWF. Extensive med compliance counseling has been provided to the patient. Pt will be discharged to home today with a close follow up with PCP and nephrology Of note: pt did not qualify for home bipap pt is asked to do outpatient sleep study for CPAP. - Time Spent with Patient Total time spent providing and/or coordinating discharge services: Greater than 30 minutes - Constitutional Vitals: Temp Pulse Resp BP Pulse Ox 97.5 F L 70 16 131/71 95 08/28/17 11:21 08/28/17 15:31 08/28/17 11:31 08/28/17 15:31 08/28/17 11:31 General appearance: Present: A&O X 3, no acute distress, obese, answers questions appropriately - Head Head exam: Present: atraumatic, normocephalic - Eye Eye exam: Present: conjuntiva pink, sclera anicteric - Respiratory Respiratory exam: Absent: respiratory distress, wheezes - Cardiovascular Cardiovascular exam: Present: RRR, +S1, +S2. Absent: diastolic murmur, gallop, rubs, systolic murmur - GI/Abdominal GI/Abdominal exam: Present: normal bowel sounds, soft, no peritoneal signs. Absent: distended, tenderness - Extremities Exam Extremities exam: Present: warm, radial pulses palpable and symmetrical. Absent : calf tenderness Additional comments: left distal leg hematoma-improved from previous day - Neurological Exam Neurological exam: Present: alert, oriented X3 - Psychiatric Psychiatric exam: Present: normal affect, normal mood - VTE Documentation of Mechanical Device: Graduated compression elastic hosiery
[2017-08-28 16:50] VITALS: BP 147/64
[2017-08-28] MEDS ORDERED: *HR* Heparin 5,000 UNIT/ML VIAL SQ SCH (18:00)
== END 2017-08-28 17:19 | disposition home or self-care (01) | DRG 194 ==
LOC: 2NNU 05:09 → EMEROO 05:09 → SUATTDRO 07:44 → 2NNU 07:47 → 2ANU 08-26 12:14
PROVIDERS: ADMIT Hospitalist; ATTEND Internal Medicine

== ENCOUNTER 2017-10-18 07:36 | Inpatient (IN) ==
[2017-10-18] MEDS ORDERED: methylPREDNISolone 125 MG/2 ML VIAL IVP ONE (07:38)
[2017-10-18] MEDS ORDERED: Ipratropium/Albuterol Neb 3 ML IH ONE (07:38)
--- NOTE | 2017-10-18 07:47 | Emergency Department Note ---
START Narrative - START START: I examined this patient and my medical decision-making was reviewed with the Resident Physician. I agree with the documented findings, disposition and treatment plan as described except to the extent set forth below. 52-year-old male presents emergency room if shortness of breath. Patient gets hemodialysis 3 times a week. States he had a full round of dialysis yesterday. Was feeling fine yesterday. Woke up this morning with shortness of breath. Does have a history of COPD and smoking. Denies any chest pain. Likely COPD exacerbation. doubt chf but possible. ekg ok will check labs, ekg, cxr.
[2017-10-18 08:05] LABS: Basophils % 0.5 %; Eosinophils # 0.2 K/mcL (0.0-0.6); Eosinophils % 2.8 %; Hemoglobin 9.1 g/dL (12.9-16.9); Immature Granulocytes % 0.5 % (0-4); Lymphocytes # 1.9 K/mcL (0.6-4.6); Lymphocytes % 24.4 %; Mean Corpuscular HGB Conc 30.3 g/dL (31.6-35.5); Mean Corpuscular Hemoglobin 25.6 pg (28.0-33.3); Mean Corpuscular Volume 84.3 fL (83.0-100.0); Mean Platelet Volume 9.1 fL (9.4-12.4); Monocytes # 0.5 K/mcL (0.0-1.3); Monocytes % 6.7 %; Neutrophils # 5.2 K/mcL (1.6-8.9); Platelet Count 220 K/mcL (140-400); Red Blood Count 3.56 M/mcL (4.19-5.50); Red Cell Distribution Width 17.5 % (11.5-14.5); Segmented Neutrophils % 65.1 %
[2017-10-18 08:19] LABS: ABG Base Excess 2 mEq/L (-2 to 3); ABG HCO3 29 mEq/L (21-27); ABG Oxygen Saturation 97 % (95-98); ABG PCO2 56 mmHg (35-45); ABG PH 7.32 pH Units (7.32-7.45); ABG PO2 104 mmHg (85-104); ABG TCO2 31 mEq/L (20-26)
--- NOTE | 2017-10-18 08:19 | Emergency Department Note ---
Disposition Clinical Impression: ESRD needing dialysis, Acute and chronic respiratory failure with hypoxia, Elevated troponin I level Acute and chronic respiratory failure Qualifiers: Respiratory failure complication: unspecified whether with hypoxia or hypercapnia Qualified Code(s): J96.20 - Acute and chronic respiratory failure, unspecified whether with hypoxia or hypercapnia CHF (congestive heart failure) Qualifiers: Congestive heart failure type: unspecified congestive heart failure type Congestive heart failure chronicity: acute on chronic Qualified Code(s): I50.9 - Heart failure, unspecified Disposition: Admitted As Inpatient Condition: Fair Referrals: Nallely Hanna REELING MACHINE SETUP OPERATOR [Primary Care Provider] - Forms: ED Satisfaction Letter Time of Disposition: 09:45 SOB HPI - General Chief Complaint: ED Shortness of Breath/Dyspnea Stated Complaint: shortness of breath Time Seen by Provider: 10/18/17 07:36 Source: patient, EMS Limitations: no limitations Nursing Notes Reviewed: Yes Vital Signs Reviewed: Yes - History of Present Illness 52-year-old male history of CHF, COPD, dialysis, ESRD dialyzes on Friday went to treatment yesterday, this morning he is feeling worsening shortness of breath, he is chronically on oxygen 2-3 L at home, his sat was down to 60%, and he was feeling more short of breath, he called EMS. They administered a DuoNeb treatment in route. Patient recently had dialysis he was dialyzed yesterday, patient denies fever, chills, productive cough, hemoptysis, he has had leg swelling but no unilateral swelling no history of DVT or PE. Left-sided dialysis port. Pt Subjective Complaint: shortness of breath, cough Onset (ago): hour(s) Context: recent illness Severity: moderate Consistency/Duration: intermittent Improves with: oxygen Worsens with: lying flat, exertion Known history of: COPD, congestive heart failure, other (ESRD) Associated symptoms: Reports: cough, wheezing. Denies: chest pain, pain with inspiration, sputum production, orthopnea, lower extremity pain, polydipsia, parasthesias, palpitations Treatment prior to arrival: oxygen, bronchodilator - Related Data Home Medications Medication Instructions Recorded Confirmed Citalopram [CeleXA] 40 mg PO DAILY 10/02/15 09/16/17 Fluticasone/Salmeterol [Advair 1 puff IH BID 10/02/15 09/16/17 250-50 Diskus] Furosemide [Lasix] 40 mg PO BID 10/02/15 09/16/17 Lidocaine Patch [Lidoderm 5% patch] 1 patch TP DAILY 10/02/15 09/16/17 hydrOXYzine HCl [Hydroxyzine HCl] 25 mg PO TID 10/02/15 09/16/17 Ferrous Sulfate [Iron] 325 mg PO DAILY 10/04/16 09/16/17 Ergocalciferol (VITAMIN D2) 50,000 unit PO QWEEK 11/03/16 09/16/17 [Vitamin D2] Lisinopril [Zestril] 10 mg PO DAILY 11/03/16 09/16/17 Simvastatin [Zocor] 40 mg PO HS 11/03/16 09/16/17 Tizanidine HCl [Zanaflex] 4 mg PO TID 11/03/16 09/16/17 Ipratropium/Albuterol Sulfate 1 puff IH QID 11/19/16 09/16/17 [Combivent Respimat Inhal [place]] Albuterol Sulfate [Proair Hfa] 2 puff IH Q4H PRN 05/08/17 09/16/17 BuPROPion SR (12 HR) [Wellbutrin 150 mg PO BID 05/08/17 09/16/17 SR] Calcium Acetate [Phos-LO] 1,334 mg PO TIDWM 05/08/17 09/16/17 Mupirocin [Bactroban Oint] 1 appl TP BID 05/08/17 09/16/17 Ondansetron HCl [Zofran] 4 mg PO BID 05/08/17 09/16/17 Sevelamer [Renvela] 2,400 mg PO TIDWM 05/08/17 09/16/17 Tramadol HCl [Ultram] 50 mg PO TID PRN 05/08/17 09/16/17 Carvedilol 12.5 mg PO BID 07/30/17 09/16/17 Gabapentin [Neurontin] 600 mg PO BID 08/24/17 09/16/17 Previous Rx's Medication Instructions Recorded Isosorbide MONOnitrate (24 HR) 30 mg PO DAILY #30 tab.er.24h 09/03/16 [Imdur] Aspirin 81 mg PO DAILY #30 tab.chew 11/24/16 Ipratropium/Albuterol Neb [Duoneb] 3 ml IH Q4HR #90 vial.neb 07/25/17 Sulfamethoxazole/Trimeth DS 1 each PO BID #14 tablet 09/10/17 [Bactrim DS] cephALEXin [Keflex] 500 mg PO QID #28 capsule 09/10/17 Allergies Allergy/AdvReac Type Severity Reaction Status Date / Time bee venom protein (honey bee) AdvReac Swelling Verified 06/30/17 04:08 of Lip/Tongue/Throat potassium AdvReac Vomiting Verified 06/30/17 04:08 prednisone AdvReac Vomiting Verified 06/30/17 04:08 All systems ED: reviewed and negative except as stated. Review of Systems: As Per HPI Constitutional: Denies: fever, chills Eyes: Denies: eye pain ENT ED: Denies: ear pain Cardiovascular: Denies: chest pain Past Medical History - Past Medical History Attestation: Yes The following information was validated with the patient. Source: patient, old records reviewed, nursing notes reviewed Medical history: Reports: arthritis, CHF, COPD, coronary artery disease, dialysis, GERD, hyperlipidemia, hypertension, myocardial infarction, osteoporosis, peripheral artery disease, renal disease, other Surgical history: Reports: non-contributory, vascular surgery, other Psychiatric history: Reports: anxiety, depression, other - Social History Smoking Status: Current every day smoker Smokeless Tobacco Status: Yes Alcohol use: Reports: none Drug use: Reports: marijuana Physical Exam - General Limitations: no limitations General appearance: alert, in distress (mild to modrate respiratory) - Head Head exam: atraumatic - Eye Eye exam: Present: normal appearance, PERRL - ENT ENT exam: normal exam, normal oropharynx - Neck Neck exam: Present: normal inspection, full ROM - Chest Chest inspection: Present: normal inspection - Respiratory Respiratory exam: Present: respiratory distress, wheezes, accessory muscle use - Expanded Respiratory Exam Location: wheezes: Right, Left, rales: Lower, Right, rhonchi: Left, Right - Cardiovascular Cardiovascular exam: Present: tachycardia - Abdominal Exam Abdominal exam: Present: soft. Absent: Non-Tender - Extremities Exam Extremities exam: Present: normal inspection, full ROM - Neurological Exam Neurological exam: Present: alert, oriented X3, CN II-XII intact Course Course Narrative: 52-year-old male with ESRD presents cough congestion bilateral inspiratory expiratory wheezes and rales at the right base, concern for Respiratory failure in setting of CHF COPD, likely exacerbation also suspect fluid overload secondary to end-stage renal disease. Patient will be given DuoNeb treatments, facemask at this time for lab work respiratory workup blood cultures lactate - Reevaluation(s) Reevaluation #1: Evidence of heart failure, suspect acute on chronic renal failure, I spoke with the pediatrician Dr. Acevedo who will dilate the patient likely dialyze the patient today, also spoke with the hospitalist Dr. Coronado who will admit the patient currently patient is hemodynamically stable satting on 4 L in the mid 90s, he is not to acidemic on his blood gas no evidence of infectious process normal lactate but elevated troponin, elevated BNP not too abnormal for the patient actually lower than baseline BNP, susect troponin elevation in setting of renal failure stable at this time for admission. - Consultations Consultation #1: [employer] Screen Printer Machine Dr. Acevedo was consult on the patient. Plans to dialyze the patient in the hospital admitted to Time: 09:15 Vital Signs Temperature 97.8 F 10/18/17 07:37 Pulse Rate 114 10/18/17 07:37 Respiratory Rate 22 10/18/17 07:37 Blood Pressure 168/93 10/18/17 07:37 O2 Sat by Pulse Oximetry 93 10/18/17 07:37 Temperature 97.8 F 10/18/17 07:37 Pulse Rate 114 10/18/17 07:37 Respiratory Rate 22 10/18/17 07:56 Blood Pressure 168/93 10/18/17 07:37 O2 Sat by Pulse Oximetry 93 10/18/17 07:56 Oxygen Delivery Oxygen Delivery Aerosol Mask Shortness of Breath/Dyspnea - Differential Diagnosis Likely: acute exacerbation of chronic obstructive airways disease, congestive heart failure, pneumonia, asthma with exacerbation - Medical Records Medical records reviewed: Yes I reviewed the patient's medical records. - Lab Data Lab results reviewed: Yes I reviewed the patient's lab results. Result diagrams: 10/18/17 07:54 10/18/17 07:54 Lab Results 10/18/17 10/18/17 10/18/17 Range/Units 07:54 07:54 07:54 WBC 7.9 (4.3-11.1) K/mcL RBC 3.56 L (4.19-5.50) M/mcL Hgb 9.1 L (12.9-16.9) g/dL Hct 30.0 L (37.5-50.1) % MCV 84.3 (83.0-100.0) fL MCH 25.6 L (28.0-33.3) pg MCHC 30.3 L (31.6-35.5) g/dL RDW 17.5 H (11.5-14.5) % Plt Count 220 (140-400) K/mcL MPV 9.1 L (9.4-12.4) fL Immature Gran % 0.5 (0-4) % Seg Neutrophils % 65.1 % Lymphocytes % 24.4 % Monocytes % 6.7 % Eosinophils % 2.8 % Basophils % 0.5 % Neutrophils # 5.2 (1.6-8.9) K/mcL Lymphocytes # 1.9 (0.6-4.6) K/mcL Monocytes # 0.5 (0.0-1.3) K/mcL Eosinophils # 0.2 (0.0-0.6) K/mcL Basophils # 0.0 (0.0-0.2) K/mcL PT (9.4-12.1) Seconds INR ABG pH (7.32-7.45) pH Units ABG pCO2 (35-45) mmHg ABG pO2 (85-104) mmHg ABG HCO3 (21-27) mEq/L ABG Total CO2 (20-26) mEq/L ABG O2 Saturation (95-98) % ABG Base Excess (-2 to 3) mEq/L Sodium 131 L (136-145) mEq/L Potassium 3.5 (3.5-5.1) mEq/L Chloride 95 L (98-107) mEq/L Carbon Dioxide 27 (23-29) mEq/L BUN 15 (6-20) mg/dL Creatinine 2.75 H (0.70-1.30) mg/dL Est GFR ( Amer) 30 L (> 60) Est GFR (Non-Af Amer) 25 L (> 60) BUN/Creatinine Ratio 5 L (6-26) Glucose 93 (70-105) mg/dL Calculated Osmolality 273 L (280-300) Lactic Acid 0.8 (0.5-2.2) mmol/L Calcium 8.3 L (8.6-10.3) mg/dL Troponin I (< 0.04) ng/mL B-Natriuretic Peptide (Less than 100) pg/mL 10/18/17 10/18/17 10/18/17 Range/Units 07:54 07:54 07:54 WBC (4.3-11.1) K/mcL RBC (4.19-5.50) M/mcL Hgb (12.9-16.9) g/dL Hct (37.5-50.1) % MCV (83.0-100.0) fL MCH (28.0-33.3) pg MCHC (31.6-35.5) g/dL RDW (11.5-14.5) % Plt Count (140-400) K/mcL MPV (9.4-12.4) fL Immature Gran % (0-4) % Seg Neutrophils % % Lymphocytes % % Monocytes % % Eosinophils % % Basophils % % Neutrophils # (1.6-8.9) K/mcL Lymphocytes # (0.6-4.6) K/mcL Monocytes # (0.0-1.3) K/mcL Eosinophils # (0.0-0.6) K/mcL Basophils # (0.0-0.2) K/mcL PT 11.5 (9.4-12.1) Seconds INR 1.1 ABG pH (7.32-7.45) pH Units ABG pCO2 (35-45) mmHg ABG pO2 (85-104) mmHg ABG HCO3 (21-27) mEq/L ABG Total CO2 (20-26) mEq/L ABG O2 Saturation (95-98) % ABG Base Excess (-2 to 3) mEq/L Sodium (136-145) mEq/L Potassium (3.5-5.1) mEq/L Chloride (98-107) mEq/L Carbon Dioxide (23-29) mEq/L BUN (6-20) mg/dL Creatinine (0.70-1.30) mg/dL Est GFR ( Amer) (> 60) Est GFR (Non-Af Amer) (> 60) BUN/Creatinine Ratio (6-26) Glucose (70-105) mg/dL Calculated Osmolality (280-300) Lactic Acid (0.5-2.2) mmol/L Calcium (8.6-10.3) mg/dL Troponin I 0.06 H* (< 0.04) ng/mL B-Natriuretic Peptide 1316 H (Less than 100) pg/mL 10/18/17 Range/Units 08:16 WBC (4.3-11.1) K/mcL RBC (4.19-5.50) M/mcL Hgb (12.9-16.9) g/dL Hct (37.5-50.1) % MCV (83.0-100.0) fL MCH (28.0-33.3) pg MCHC (31.6-35.5) g/dL RDW (11.5-14.5) % Plt Count (140-400) K/mcL MPV (9.4-12.4) fL Immature Gran % (0-4) % Seg Neutrophils % % Lymphocytes % % Monocytes % % Eosinophils % % Basophils % % Neutrophils # (1.6-8.9) K/mcL Lymphocytes # (0.6-4.6) K/mcL Monocytes # (0.0-1.3) K/mcL Eosinophils # (0.0-0.6) K/mcL Basophils # (0.0-0.2) K/mcL PT (9.4-12.1) Seconds INR ABG pH 7.32 (7.32-7.45) pH Units ABG pCO2 56 H (35-45) mmHg ABG pO2 104 (85-104) mmHg ABG HCO3 29 H (21-27) mEq/L ABG Total CO2 31 H (20-26) mEq/L ABG O2 Saturation 97 (95-98) % ABG Base Excess 2 (-2 to 3) mEq/L Sodium (136-145) mEq/L Potassium (3.5-5.1) mEq/L Chloride (98-107) mEq/L Carbon Dioxide (23-29) mEq/L BUN (6-20) mg/dL Creatinine (0.70-1.30) mg/dL Est GFR ( Amer) (> 60) Est GFR (Non-Af Amer) (> 60) BUN/Creatinine Ratio (6-26) Glucose (70-105) mg/dL Calculated Osmolality (280-300) Lactic Acid (0.5-2.2) mmol/L Calcium (8.6-10.3) mg/dL Troponin I (< 0.04) ng/mL B-Natriuretic Peptide (Less than 100) pg/mL - Radiology Data Radiology results reviewed: Yes I reviewed the patient's radiology results. Chest X-Ray 10/18/17 07:38 IMPRESSION: 1. Worsening congestive heart failure. D/ / Morris Gaona MD / Morris Gaona MD Interpreting Provider: Morris Gaona MD - EKG Data EKG attestation: Yes I reviewed and interpreted this EKG. EKG shows normal: Reports: sinus rhythm Rate: Reports: tachycardia (10 8 bpm 116 [place] QRS 101 QTC 411 no acute ischemic changes.)
[2017-10-18 08:27] LABS: Calcium 8.3 mg/dL (8.6-10.3); Potassium 3.5 mEq/L (3.5-5.1)
[2017-10-18 08:37] LABS: INR 1.1; Prothrombin Time 11.5 Seconds (9.4-12.1)
[2017-10-18] MEDS ORDERED: Isosorbide MONOnitrate (24 HR) 30 MG TAB.ER.24H PO SCH (09:30)
--- NOTE | 2017-10-18 09:32 | Internal Med History&Physical ---
Date of Encounter: 10/18/17 Time of Encounter: 09:30 Assessment and Plan (1) Acute bronchitis Current visit: Yes Status: Acute Patient is having increased cough sputum production compared to baseline. I will keep the patient on antibiotic nebulizer treatment and steroids for acute bronchitis. Qualifiers: Qualified Code(s): J20.9 - Acute bronchitis, unspecified (2) Leg wound, left Current visit: Yes Status: Acute Patient is currently on antibiotics for that according to him will continue. Wound care to see the patient Qualifiers: Qualified Code(s): S81.802A - Unspecified open wound, left lower leg, initial encounter (3) Elevated troponin Current visit: No Status: Acute Likely due to demand ischemia. He denies any chest pain. Trend troponin (4) Pulmonary edema Current visit: No Status: Acute Patient received dialysis yesterday however he still has excess volume. Will need dialysis. Nephrology has been contacted. Qualifiers: Qualified Code(s): J81.0 - Acute pulmonary edema Internal Medicine - H&P: HPI Chief complaint: sob History of present illness: Mr. Castro is a 52 year old male with end-stage renal disease on hemodialysis Friday presents to the emergency room today with the main complaint of shortness of breath. Since this morning patient started noticing shortness of breath at rest. his oxygen saturation was very low at home down to 60%. He mentioned that he dialyzed yesterday a full dialysis session. He still over his dry weight according to the numbers he is providing. He Mention that his dry weight is around 175 pounds and currently he is about 180 pounds. He also mentioned that he has been having increased cough with sputum production the past few days. He is currently on antibiotics for left leg wound. Past Med Surg Social Fam HX - Past Medical History Medical history: arthritis, CHF, COPD, coronary artery disease, dialysis, GERD, hyperlipidemia, hypertension, myocardial infarction, osteoporosis, peripheral artery disease, renal disease, other Psychiatric history: anxiety, depression, other - Past Surgical History Surgical History: non-contributory, vascular surgery, other - Social History Smoking Status: Current every day smoker Smokeless Tobacco Status: Yes Alcohol use: none Drug use: marijuana - Family History Mother Living Status: Hx Family Cardiac Disorders: Yes Father Adopted: No Living Status: Hx Family Cardiac Disorders: No Hx Family Respiratory Disorders: Yes Hx Family Cancer: Yes Hx Family GI Disorders: Yes Hx Family Endocrine Disorder: No Hx Family Neuromuscular Disorders: No Hx Family Neurologic Disorders: No Hx Family HEENT Disorders: No Hx Family Autoimmune Disorders: No Internal Medicine - H&P: Meds Citalopram [CeleXA] 40 mg PO DAILY 10/02/15 [History] Fluticasone/Salmeterol [Advair 250-50 Diskus] 1 puff IH BID 10/02/15 [History] Furosemide [Lasix] 40 mg PO BID 10/02/15 [History] Lidocaine Patch [Lidoderm 5% patch] 1 patch TP DAILY 10/02/15 [History] hydrOXYzine HCl [Hydroxyzine HCl] 25 mg PO TID 10/02/15 [History] Isosorbide MONOnitrate (24 HR) [Imdur] 30 mg PO DAILY #30 tab.er.24h 09/03/16 [ Rx] Ergocalciferol (VITAMIN D2) [Vitamin D2] 50,000 unit PO QWEEK 11/03/16 [History] Lisinopril [Zestril] 10 mg PO DAILY 11/03/16 [History] Simvastatin [Zocor] 40 mg PO HS 11/03/16 [History] Tizanidine HCl [Zanaflex] 4 mg PO TID 11/03/16 [History] Ipratropium/Albuterol Sulfate [Combivent Respimat Inhal [place]] 1 puff IH QID 04/28 [History] Aspirin 81 mg PO DAILY #30 tab.chew 11/24/16 [Rx] Albuterol Sulfate [Proair Hfa] 2 puff IH Q4H PRN 05/08/17 [History] Calcium Acetate [Phos-LO] 1,334 mg PO TIDWM 05/08/17 [History] Tramadol HCl [Ultram] 50 mg PO TID PRN 05/08/17 [History] Ipratropium/Albuterol Neb [Duoneb] 3 ml IH Q4HR #90 vial.neb 07/25/17 [Rx] Carvedilol 12.5 mg PO BID 07/30/17 [History] Gabapentin [Neurontin] 600 mg PO BID 08/24/17 [History] 3 Allergy/AdvReac Type Severity Reaction Status Date / Time bee venom protein (honey bee) AdvReac Swelling Verified 06/30/17 04:08 of Lip/Tongue/Throat potassium AdvReac Vomiting Verified 06/30/17 04:08 prednisone AdvReac Vomiting Verified 06/30/17 04:08 All Systems PM: A 10-system review of systems was performed and is negative for pertinent findings except as documented above in the HPI. Review of systems: 10 point review of systems is negative except for HPI - Constitutional Vitals: Temp Pulse Resp BP Pulse Ox 97.8 F 95 20 133/81 93 10/18/17 07:37 10/18/17 09:24 10/18/17 09:24 10/18/17 09:24 10/18/17 09:24 Exam: Gen.: patient is alert oriented times 3 not in distress. Cardiac: normal S1 S2 no additional sounds are murmurs. Chest: basal crackles and expiratory wheezing Abdomen: soft nontender nondistended. Lower extremity 1+ swelling. Wound of the left anterior guillen with serosanginous drainage. mucous membranes: moist Internal Med - H&P Results - Labs CBC & Chem 7: 10/18/17 07:54 10/18/17 07:54 Labs: Short CBC 10/18/17 Range/Units 07:54 WBC 7.9 (4.3-11.1) K/mcL Hgb 9.1 L (12.9-16.9) g/dL Hct 30.0 L (37.5-50.1) % Plt Count 220 (140-400) K/mcL Neutrophils # 5.2 (1.6-8.9) K/mcL BMP 10/18/17 07:54 Sodium 131 L Potassium 3.5 Chloride 95 L Carbon Dioxide 27 BUN 15 Creatinine 2.75 H Glucose 93 Calcium 8.3 L Cardiac Enzymes 10/18/17 Range/Units 07:54 Troponin I 0.06 H* (< 0.04) ng/mL - ABG Interpretation ABG results: 10/18/17 08:16 ABG pH 7.32 ABG pCO2 56 H ABG pO2 104 ABG HCO3 29 H ABG Total CO2 31 H ABG O2 Saturation 97 ABG Base Excess 2 - Impressions ITS Impressions Chest X-Ray 10/18/17 07:38 IMPRESSION: 1. Worsening congestive heart failure. D/ / Morris Gaona MD / Morris Gaona MD Interpreting Provider: Morris Gaona MD
[2017-10-18] MEDS ORDERED: 0.9 % Sodium Chloride 250 ML IVC PRN (09:50)
[2017-10-18] MEDS ORDERED: Albumin 25% 12.5gm/50mL 12.5 GM/50 ML IV.SOLN IVPB PRN (09:50)
[2017-10-18] MEDS ORDERED: 0.9 % Sodium Chloride 1,000 ML PRIME SCH (10:00)
[2017-10-18 10:47] LABS: Hepatitis B Surface Antigen Nonreactive (Nonreactive)
[2017-10-18] MEDS ORDERED: Doxycycline 100 MG in 0.9 % Sodium Chloride Mini Bag 100 ML IVPB SCH (11:30)
[2017-10-18] MEDS: Ipratropium/Albuterol Neb 3 ML IH SCH ×3 (12:13→20:46)
--- NOTE | 2017-10-18 15:04 | Nephrology Consult Note ---
Date of Encounter: 10/18/17 Time of Encounter: 12:00 Assessment and Plan (1) ESRD needing dialysis Current Visit: Yes Status: Acute Continue urgent UF/HD already underway for 2 hours with goal of 4-5kg as tolerated Fluid restriction advised at 1liter a day Next HD planned for friday if still hospitalized (2) Fluid overload Current Visit: No Status: Acute Strict I/Os advised Pt counselled on adherence to fluid restriction Qualifiers: Hypervolemia type: other Qualified Code(s): E87.79 - Other fluid overload (3) Anemia Current Visit: No Status: Acute Hgb noted at 9.4, likely due to CKD, will monitor and dose with EPO as needed Qualifiers: Qualified Code(s): D64.9 - Anemia, unspecified History of Present Illness - Reason for Consult Consult date: 10/18/17 end stage renal disease Requesting physician: Rafa Stallings - History of Present Illness 52 y o male with PMH of CAD needing CABG and ESRD on HD admitted today with progressive SOB despite receiving HD yesterday at his outsude facility. Pt has a long history of noncompliance to his fluid restriction and is routinely hospitalized almost monthly for volume overload. Pt kristen and examined at HD unit already feeling better a hour into his utrafiltrataion treatment. No other complaints. Past Med Surg Social Fam HX - Past Medical History Medical history: arthritis, CHF, COPD, coronary artery disease, dialysis, GERD, hyperlipidemia, hypertension, myocardial infarction, osteoporosis, peripheral artery disease, renal disease, other Psychiatric history: anxiety, depression, other - Past Surgical History Surgical History: non-contributory, vascular surgery, other - Social History Smoking Status: Current every day smoker Smokeless Tobacco Status: Yes Alcohol use: none Drug use: marijuana - Family History Mother Living Status: Hx Family Cardiac Disorders: Yes Father Adopted: No Living Status: Hx Family Cardiac Disorders: No Hx Family Respiratory Disorders: Yes Hx Family Cancer: Yes Hx Family GI Disorders: Yes Hx Family Endocrine Disorder: No Hx Family Neuromuscular Disorders: No Hx Family Neurologic Disorders: No Hx Family HEENT Disorders: No Hx Family Autoimmune Disorders: No Medications and Allergies Citalopram [CeleXA] 40 mg PO DAILY 10/02/15 [History] Fluticasone/Salmeterol [Advair 250-50 Diskus] 1 puff IH BID 10/02/15 [History] Furosemide [Lasix] 40 - 80 mg PO BID PRN 10/02/15 [History] Lidocaine Patch [Lidoderm 5% patch] 1 patch TP DAILY 10/02/15 [History] hydrOXYzine HCl [Hydroxyzine HCl] 25 mg PO TID 10/02/15 [History] Isosorbide MONOnitrate (24 HR) [Imdur] 30 mg PO DAILY #30 tab.er.24h 09/03/16 [ Rx] Ergocalciferol (VITAMIN D2) [Vitamin D2] 50,000 unit PO MO 11/03/16 [History] Lisinopril [Zestril] 10 mg PO DAILY 11/03/16 [History] Simvastatin [Zocor] 40 mg PO HS 11/03/16 [History] Tizanidine HCl [Zanaflex] 4 mg PO TID 11/03/16 [History] Ipratropium/Albuterol Sulfate [Combivent Respimat Inhal [place]] 1 puff IH QID 04/28 [History] Aspirin 81 mg PO DAILY #30 tab.chew 11/24/16 [Rx] Albuterol Sulfate [Proair Hfa] 2 puff IH Q4H PRN 05/08/17 [History] Calcium Acetate [Phos-LO] 1,334 mg PO TIDWM 05/08/17 [History] Tramadol HCl [Ultram] 50 mg PO TID PRN 05/08/17 [History] Ipratropium/Albuterol Neb [Duoneb] 3 ml IH Q4HR #90 vial.neb 07/25/17 [Rx] Carvedilol 12.5 mg PO BID 07/30/17 [History] Gabapentin [Neurontin] 600 mg PO BID 08/24/17 [History] Doxycycline 100 mg PO BID 10/18/17 [History] Guaifenesin/Codeine Phosphate [Guaifenesin-Codeine Syrup] 10 ml PO Q6H PRN 10/18 [History] Potassium Chloride [K-Tab ER] 20 meq PO DAILY 10/18/17 [History] Sertraline [Zoloft] 50 mg PO DAILY 10/18/17 [History] 3 Allergy/AdvReac Type Severity Reaction Status Date / Time bee venom protein (honey bee) AdvReac Swelling Verified 06/30/17 04:08 of Lip/Tongue/Throat potassium AdvReac Vomiting Verified 06/30/17 04:08 prednisone AdvReac Vomiting Verified 06/30/17 04:08 Review of Systems All Systems: reviewed and no additional remarkable complaints except as stated ( 10 systems reviewed) Exam - Vital Signs Vital signs: Initial Vital Signs Temp Pulse Resp BP Pulse Ox 97.8 F 114 22 168/93 93 10/18/17 07:37 10/18/17 07:37 10/18/17 07:37 10/18/17 07:37 10/18/17 07:37 Vital Signs - Last 8 Hours Temp Pulse Resp BP Pulse Ox 10/18/17 12:46 97.8 F 20 152/82 10/18/17 12:30 126/82 10/18/17 12:15 142/77 10/18/17 12:00 157/84 10/18/17 11:45 146/70 10/18/17 11:30 133/72 10/18/17 11:15 154/80 10/18/17 11:00 153/83 10/18/17 10:45 161/74 10/18/17 10:30 97.7 F 20 159/83 10/18/17 10:21 98.1 F 107 16 163/76 91 Intake and Output 10/17/17 10/18/17 10/18/17 23:59 07:59 15:59 Intake Total 600 / 600 Output Total 5600 / 5600 Balance -5000 / -5000 Intake: Oral 0 / 0 Intake, Rinseback and Flushes 600 / 600 Output: Urine 0 / 0 Total Dialysis (HD) Output 5600 / 5600 Other: Hemodialysis Net Fluid Removed 5000 (mL) - General Appearance General appearance: chronically ill EENT: ATNC, mucous membranes moist Neck: no JVD, supple Additional Comments: decreased BS bases bilat Cardiology: edema, normal S1, normal S2 - Dialysis Access Dialysis Vascular Access: Venous Catheter (permcath) Gastrointestinal: no tenderness, no guarding Integumentary: warm and dry Neurologic: no focal deficit Musculoskeletal: no deformities Psychiatric: cooperative Results - Lab Results 10/18/17 07:54 10/18/17 07:54 Most recent lab results ABG pH 7.32 pH Units (7.32-7.45) 10/18/17 08:16 ABG pCO2 56 mmHg (35-45) H 10/18/17 08:16 ABG pO2 104 mmHg (85-104) 10/18/17 08:16 ABG HCO3 29 mEq/L (21-27) H 10/18/17 08:16 ABG O2 Saturation 97 % (95-98) 10/18/17 08:16 Calcium 8.3 mg/dL (8.6-10.3) L 10/18/17 07:54 Consult Discharge Plan - Plan Referrals: Nallely Hanna, C2 TACTICAL ANALYSIS TECHNICIAN [Primary Care Provider] -
[2017-10-18] MEDS: tiZANidine 4 MG TABLET PO SCH ×2 (15:25→22:04)
[2017-10-18] MEDS: *HR* Heparin 5,000 UNIT/ML VIAL SQ SCH ×2 (15:26→22:03)
[2017-10-18] MEDS: Calcium Acetate 667 MG CAPSULE PO SCH ×2 (15:26→17:05)
[2017-10-18] MEDS: MethylPREDNISolone 40 MG/ML VIAL IVP SCH (15:26)
[2017-10-18] MEDS: Doxycycline 100 MG in 0.9 % Sodium Chloride Mini Bag 100 ML IVPB SCH (16:08)
[2017-10-18] MEDS: Furosemide 40 MG TABLET PO SCH (17:05)
[2017-10-18] MEDS: Budesonide/Formoterol 80/4.5 MDI IH SCH ×2 (20:45→20:49)
[2017-10-18] MEDS: Gabapentin 300 MG CAPSULE PO SCH (22:04)
[2017-10-19] MEDS: MethylPREDNISolone 40 MG/ML VIAL IVP SCH ×4 (00:12→23:41)
[2017-10-19] MEDS: Ipratropium/Albuterol Neb 3 ML IH SCH ×7 (00:24→23:53)
[2017-10-19 03:37] LABS: Hematocrit 28.7 % (37.5-50.1); Hemoglobin 8.8 g/dL (12.9-16.9); Immature Granulocytes % 0.7 % (0-4); Lymphocytes # 0.6 K/mcL (0.6-4.6); Lymphocytes % 9.1 %; Mean Corpuscular HGB Conc 30.7 g/dL (31.6-35.5); Mean Corpuscular Hemoglobin 25.4 pg (28.0-33.3); Mean Corpuscular Volume 82.9 fL (83.0-100.0); Monocytes # 0.1 K/mcL (0.0-1.3); Monocytes % 1.3 %; Neutrophils # 5.9 K/mcL (1.6-8.9); Platelet Count 182 K/mcL (140-400); Red Blood Count 3.46 M/mcL (4.19-5.50); Red Cell Distribution Width 17.5 % (11.5-14.5); Segmented Neutrophils % 88.9 %
[2017-10-19 04:03] LABS: Calcium 8.5 mg/dL (8.6-10.3); Magnesium 1.7 mg/dL (1.6-2.6); Potassium 4.1 mEq/L (3.5-5.1)
[2017-10-19] MEDS: *HR* Heparin 5,000 UNIT/ML VIAL SQ SCH ×3 (05:04→23:41)
[2017-10-19] MEDS: Doxycycline 100 MG in 0.9 % Sodium Chloride Mini Bag 100 ML IVPB SCH ×2 (05:07→18:22)
[2017-10-19] MEDS: Acetaminophen 325 MG TABLET PO PRN (06:48)
[2017-10-19] MEDS: Budesonide/Formoterol 80/4.5 MDI IH SCH ×2 (07:52→20:09)
[2017-10-19] MEDS: Nitroglycerin 0.4 MG PATCH.TD24 TD SCH (08:50)
[2017-10-19] MEDS: Calcium Acetate 667 MG CAPSULE PO SCH ×3 (08:50→18:22)
[2017-10-19] MEDS: Isosorbide MONOnitrate (24 HR) 30 MG TAB.ER.24H PO SCH (08:50)
[2017-10-19] MEDS: Aspirin 81 MG TAB.CHEW PO SCH (08:51)
[2017-10-19] MEDS: Furosemide 40 MG TABLET PO SCH ×2 (08:51→18:22)
[2017-10-19] MEDS: tiZANidine 4 MG TABLET PO SCH ×3 (08:51→20:32)
[2017-10-19] MEDS: Gabapentin 300 MG CAPSULE PO SCH ×2 (08:51→20:32)
--- NOTE | 2017-10-19 13:47 | Nephrology Progress Note ---
Date of Encounter: 10/19/17 Time of Encounter: 12:00 - Assessment and Plan (1) ESRD needing dialysis Current Visit: Yes Status: Acute Next HD planned tomorrow with aggresive UF as tolerated Continue renal diet (2) Fluid overload Current Visit: No Status: Acute Continue fluid restriction Strict I/Os Qualifiers: Hypervolemia type: other Qualified Code(s): E87.79 - Other fluid overload (3) Anemia Current Visit: No Status: Acute Hgb fairly stable at 8.8, will monitor Qualifiers: Qualified Code(s): D64.9 - Anemia, unspecified (4) Hyponatremia Current Visit: Yes Status: Acute Sodium noted at 125 due to hypervolemia with excessive fluid intake Should improve with HD tomorrow Fluid restriction advised Subjective Interval history: Pt seen and examined feeling better with his breathing after urgent UF yesterday. No new complaints Objective - Vital Signs Vital signs: Vital Signs Temp Pulse Resp BP Pulse Ox 10/19/17 12:33 97.9 F 86 16 128/63 92 10/19/17 11:08 16 165/81 93 10/19/17 09:24 16 165/81 95 10/19/17 07:13 97.6 F 94 16 165/81 94 10/19/17 03:36 97.9 F 97 16 149/81 91 10/19/17 00:25 20 98 10/18/17 23:33 97.7 F 87 18 176/93 93 10/18/17 22:06 97.8 F 93 17 173/89 94 10/18/17 20:46 18 94 10/18/17 16:45 16 94 10/18/17 15:51 98.0 F 100 17 135/79 96 Intake and Output 10/18/17 10/19/17 10/19/17 23:59 07:59 15:59 Intake Total 100 / 100 240 / 240 Balance 100 / 100 240 / 240 Intake: IV Fluids 100 / 100 Doxycycline 100 MG In 0.9 % 100 / 100 Sodium Chloride (Mini-Bag +) 100 ML @ 100 mls/hr IVPB Q12H [facility] Rx#:[id number] Oral 240 / 240 Other: Meal Breakfast Percent of Meal Consumed 100% # Voids 1 Weight 81.6 kg Patient Weight 10/19/17 23:59 Weight 81.6 kg - General Appearance General appearance: Present: chronically ill EENT: Present: ATNC, mucous membranes moist Additional Comments: periorbital edema noted R>L Neck: Present: supple Additional Comments: improved areation ant bilat Cardiology: Present: edema (improved), normal S1, normal S2 Dialysis Vascular Access: Venous Catheter (permcath) Gastrointestinal: Present: no tenderness, no guarding Integumentary: Present: warm and dry Neurologic: Present: no focal deficit Musculoskeletal: Present: no deformities Psychiatric: Present: cooperative - Lab 10/19/17 02:41 10/19/17 02:41 Most recent lab results ABG pH 7.32 pH Units (7.32-7.45) 10/18/17 08:16 ABG pCO2 56 mmHg (35-45) H 10/18/17 08:16 ABG pO2 104 mmHg (85-104) 10/18/17 08:16 ABG HCO3 29 mEq/L (21-27) H 10/18/17 08:16 ABG O2 Saturation 97 % (95-98) 10/18/17 08:16 Calcium 8.5 mg/dL (8.6-10.3) L 10/19/17 02:41 Magnesium 1.7 mg/dL (1.6-2.6) 10/19/17 02:41 Consult Discharge Plan - Plan Referrals: Nallely Hanna, MILANESE KNITTING MACHINE OPERATOR [Primary Care Provider] -
--- NOTE | 2017-10-19 17:14 | Internal Med Progress Note ---
Date of Encounter: 10/19/17 Time of Encounter: 17:12 - Assessment and plan (1) Acute bronchitis Current Visit: Yes Status: Acute Assessment and plan: Patient is admitted with acute bronchitis. No signs of respiratory failure. Noted that patient is presently on antibiotics/steroids/bronchodilators We will continue same management. Qualifiers: Bronchitis organism: unspecified organism Qualified Code(s): J20.9 - Acute bronchitis, unspecified (2) ESRD needing dialysis Current Visit: Yes Status: Acute Assessment and plan: Patient is known to have end-stage renal disease and he is presently on dialysis. Patient is very noncompliant with the dialysis. Patient is very well known to the fish stringer assembler/this unit here. At this admission patient is appeared to be more fluffy in terms of his face and he does agree that he missed a few dialysis. Patient needs [id number] 2 or 3 treatment to get him under euvolumic stage (3) HTN (hypertension) Current Visit: No Status: Chronic Assessment and plan: Wel controlled Qualifiers: Hypertension type: secondary to other renal disorders Qualified Code(s): I15.1 - Hypertension secondary to other renal disorders; N28.89 - Other specified disorders of kidney and ureter; N28.89 - Other specified disorders of kidney and ureter (4) CAD (coronary artery disease) Current Visit: No Status: Acute Assessment and plan: Denies any chest pain Qualifiers: Coronary Disease-Associated Artery/Lesion type: unspecified vessel or lesion type Associated angina: without angina Qualified Code(s): I25.10 - Atherosclerotic heart disease of [place] coronary artery without angina pectoris (5) Leg wound, left Current Visit: Yes Status: Acute Assessment and plan: See above Qualifiers: Qualified Code(s): S81.802A - Unspecified open wound, left lower leg, initial encounter - Subjective Interval history: Patient seen and examined. Chart reviewed. Patient is comfortably lying in bed. Noted that patient Is very puffy. This patient is very well known to this hospital and this unit. Patient is very noncompliant in nature. - Constitutional Vitals: Temp Pulse Resp BP Pulse Ox 98.1 F 89 16 151/74 96 10/19/17 15:45 10/19/17 15:45 10/19/17 15:45 10/19/17 15:45 01/07/18 15:45 General appearance: Present: mild distress, pleasant, no acute distress, answers questions appropriately - Head Head exam: Present: atraumatic, normocephalic - Eye Eye exam: Present: PERRL, conjuntiva pink, sclera anicteric Pupils: Present: PERRL - Neck Neck exam general surgery: Present: supple, trachea midline. Absent: lymphadenopathy - Respiratory Respiratory exam: Present: CTAB. Absent: accessory muscle use, rales, rhonchi, wheezes - Cardiovascular Cardiovascular exam: Present: RRR, +S1, +S2. Absent: diastolic murmur, gallop, rubs, systolic murmur - GI/Abdominal GI/Abdominal exam: Present: normal bowel sounds, soft, no peritoneal signs. Absent: distended, tenderness - Extremities Exam Extremities exam: Present: warm, radial pulses palpable and symmetrical. Absent : calf tenderness, cyanotic, pedal edema - Neurological Exam Neurological exam: Present: CN II-XII intact, oriented X3, no focal deficits. Absent: pronater drift, facial droop, speech deficit - Skin Skin exam: Present: dry, intact Internal Medicine: Result - Labs CBC & Chem 7: 10/19/17 02:41 10/19/17 02:41 Labs: Short CBC 10/19/17 Range/Units 02:41 WBC 6.7 (4.3-11.1) K/mcL Hgb 8.8 L (12.9-16.9) g/dL Hct 28.7 L (37.5-50.1) % Plt Count 182 (140-400) K/mcL Neutrophils # 5.9 (1.6-8.9) K/mcL BMP 10/19/17 02:41 Sodium 125 L Potassium 4.1 Chloride 93 L Carbon Dioxide 23 BUN 30 H Creatinine 4.04 H Glucose 162 H Calcium 8.5 L Cardiac Enzymes 10/18/17 Range/Units 21:00 Troponin I 0.08 H* (< 0.04) ng/mL - ABG Interpretation ABG results: ABG ABG pH 7.32 pH Units (7.32-7.45) 10/18/17 08:16 ABG pCO2 56 mmHg (35-45) H 10/18/17 08:16 ABG pO2 104 mmHg (85-104) 10/18/17 08:16 ABG O2 Saturation 97 % (95-98) 10/18/17 08:16 PT/INR, D-dimer PT 11.5 Seconds (9.4-12.1) 10/18/17 07:54 Consult Discharge Plan - Plan Referrals: Nallely Hanna, PROFESSOR OF CHEMISTRY [Primary Care Provider] -
[2017-10-20] MEDS: Ipratropium/Albuterol Neb 3 ML IH SCH ×5 (03:53→20:31)
[2017-10-20 04:38] LABS: Hemoglobin 8.4 g/dL (12.9-16.9); Immature Granulocytes % 1.1 % (0-4); Lymphocytes # 0.8 K/mcL (0.6-4.6); Lymphocytes % 11.5 %; Mean Corpuscular HGB Conc 31.1 g/dL (31.6-35.5); Mean Corpuscular Hemoglobin 25.8 pg (28.0-33.3); Mean Corpuscular Volume 82.8 fL (83.0-100.0); Mean Platelet Volume 10.3 fL (9.4-12.4); Monocytes # 0.2 K/mcL (0.0-1.3); Monocytes % 3.5 %; Neutrophils # 5.5 K/mcL (1.6-8.9); Platelet Count 198 K/mcL (140-400); Red Blood Count 3.26 M/mcL (4.19-5.50); Segmented Neutrophils % 83.9 %
[2017-10-20 04:44] LABS: Albumin 3.2 g/dL (3.5-5.7); Albumin/Globulin Ratio 1.3 (1.1-2.2); Bilirubin,Total 0.3 mg/dL (0.3-1.0); Calcium 8.7 mg/dL (8.6-10.3); Globulin 2.4 g/dL (2.4-3.5); Potassium 4.1 mEq/L (3.5-5.1); Total Protein 5.6 g/dL (6.4-8.9)
[2017-10-20] MEDS: *HR* Heparin 5,000 UNIT/ML VIAL SQ SCH ×3 (05:39→20:51)
[2017-10-20] MEDS: Doxycycline 100 MG in 0.9 % Sodium Chloride Mini Bag 100 ML IVPB SCH (05:39)
[2017-10-20] MEDS: Furosemide 40 MG TABLET PO SCH ×2 (07:36→18:42)
[2017-10-20] MEDS ORDERED: Albumin 25% 12.5gm/50mL 12.5 GM/50 ML IV.SOLN IVPB PRN (09:32)
[2017-10-20] MEDS ORDERED: *HR* Heparin 10,000 UNIT/10 ML VIAL IV PRN (09:32)
[2017-10-20] MEDS ORDERED: 0.9 % Sodium Chloride 250 ML IVC PRN (09:32)
--- NOTE | 2017-10-20 10:20 | Electrocardiograph Report ---
[address] [address] Test Date: 2017-10-18 Pat Name: Steve Castro Department: 102 Room: 2A14 Gender: M Aprn: : 1965 Requested By: Rafa Stallings Order Number: [id number] Reading MD: Humphrey Earl MD Measurements Intervals [place] Rate: 108 P: 11 NE: 116 QRS: 61 QRSD: 101 T: -18 QT: 348 QTc: 411 Interpretive Statements SINUS TACHYCARDIA WITH SHORT NE INTERVAL LEFT ATRIAL ENLARGEMENT Electronically Signed On 10-20-2017 10:19:06 EST by Humphrey Earl MD
[2017-10-20] MEDS: Calcium Acetate 667 MG CAPSULE PO SCH ×3 (10:45→18:42)
[2017-10-20] MEDS: Isosorbide MONOnitrate (24 HR) 30 MG TAB.ER.24H PO SCH (10:58)
[2017-10-20] MEDS: Gabapentin 300 MG CAPSULE PO SCH ×2 (10:59→20:51)
[2017-10-20] MEDS: Aspirin 81 MG TAB.CHEW PO SCH (10:59)
[2017-10-20] MEDS: tiZANidine 4 MG TABLET PO SCH ×3 (10:59→20:51)
[2017-10-20] MEDS: MethylPREDNISolone 40 MG/ML VIAL IVP SCH ×2 (10:59→15:12)
[2017-10-20] MEDS: Budesonide/Formoterol 80/4.5 MDI IH SCH ×2 (11:00→20:32)
[2017-10-20] MEDS: Nitroglycerin 0.4 MG PATCH.TD24 TD SCH (15:10)
[2017-10-20] MEDS ORDERED: 0.9 % Sodium Chloride 2,000 ML ONE (15:39)
--- NOTE | 2017-10-20 16:00 | Internal Med Progress Note ---
Date of Encounter: 10/20/17 Time of Encounter: 15:58 - Assessment and plan (1) Acute bronchitis Current Visit: Yes Status: Acute Assessment and plan: Patient is admitted with acute bronchitis. No signs of respiratory failure. Noted that patient is presently on antibiotics/steroids/bronchodilators We will continue same management. 10/20/2017. We will discontinue antibiotics as there are no signs of acute bronchitis. Noted that patient has taken doxycycline as outpatient for more than 4 days. We will continue steroid for possible exacerbation. Plan: Discontinue steroids tomorrow. As per nephrology they would like to do ultrafiltration for next 2-3 days. Once patient is later discharged from nephrology point of view he can go home. Qualifiers: Bronchitis organism: unspecified organism Qualified Code(s): J20.9 - Acute bronchitis, unspecified (2) ESRD needing dialysis Current Visit: Yes Status: Acute Assessment and plan: Patient is known to have end-stage renal disease and he is presently on dialysis. Patient is very noncompliant with the dialysis. Patient is very well known to the button tacker/this unit here. At this admission patient is appeared to be more fluffy in terms of his face and he does agree that he missed a few dialysis. Patient needs [id number] 2 or 3 treatment to get him under euvolumic stage (3) HTN (hypertension) Current Visit: No Status: Chronic Assessment and plan: Wel controlled Qualifiers: Hypertension type: secondary to other renal disorders Qualified Code(s): I15.1 - Hypertension secondary to other renal disorders; N28.89 - Other specified disorders of kidney and ureter; N28.89 - Other specified disorders of kidney and ureter (4) CAD (coronary artery disease) Current Visit: No Status: Acute Assessment and plan: Denies any chest pain Qualifiers: Coronary Disease-Associated Artery/Lesion type: unspecified vessel or lesion type Associated angina: without angina Qualified Code(s): I25.10 - Atherosclerotic heart disease of [place] coronary artery without angina pectoris (5) Leg wound, left Current Visit: Yes Status: Acute Assessment and plan: See above Qualifiers: Qualified Code(s): S81.802A - Unspecified open wound, left lower leg, initial encounter - Subjective Interval history: Patient seen and examined. Chart reviewed. Patient is comfortably lying in bed. Noted that patient Is very puffy. This patient is very well known to this hospital and this unit. Patient is very noncompliant in nature. 10/20/2016 I examined this patient in his room. patient is comfortably lying on the bed. Patient denies any shortness of breath, nausea, abdominal pain, chest pain, and dizziness and diarrhea. - Constitutional Vitals: Temp Pulse Resp BP Pulse Ox 97.7 F 79 18 127/77 97 10/20/17 14:00 10/20/17 06:50 10/20/17 15:40 10/20/17 14:00 10/20/17 15:40 General appearance: Present: A&O X 3, pleasant, no acute distress, answers questions appropriately - Head Head exam: Present: atraumatic, normocephalic - Eye Eye exam: Present: PERRL, conjuntiva pink, sclera anicteric Pupils: Present: PERRL - Neck Neck exam general surgery: Present: supple, trachea midline. Absent: lymphadenopathy - Respiratory Respiratory exam: Present: CTAB. Absent: accessory muscle use, rales, rhonchi, wheezes - Cardiovascular Cardiovascular exam: Present: RRR, +S1, +S2. Absent: diastolic murmur, gallop, rubs, systolic murmur - GI/Abdominal GI/Abdominal exam: Present: normal bowel sounds, soft, no peritoneal signs. Absent: distended, tenderness - Extremities Exam Extremities exam: Present: warm, radial pulses palpable and symmetrical. Absent : calf tenderness, cyanotic, pedal edema - Neurological Exam Neurological exam: Present: CN II-XII intact, oriented X3, no focal deficits. Absent: pronater drift, facial droop, speech deficit - Skin Skin exam: Present: dry, intact Internal Medicine: Result - Labs CBC & Chem 7: 10/20/17 03:19 10/20/17 03:19 Labs: Short CBC 10/20/17 Range/Units 03:19 WBC 6.6 (4.3-11.1) K/mcL Hgb 8.4 L (12.9-16.9) g/dL Hct 27.0 L (37.5-50.1) % Plt Count 198 (140-400) K/mcL Neutrophils # 5.5 (1.6-8.9) K/mcL BMP 10/20/17 03:19 Sodium 126 L Potassium 4.1 Chloride 95 L Carbon Dioxide 21 L BUN 53 H Creatinine 5.31 H Glucose 173 H Calcium 8.7 Liver Function 10/20/17 Range/Units 03:19 Total Bilirubin 0.3 (0.3-1.0) mg/dL AST 11 L (13-39) Units/L ALT 4 L (7-52) Units/L Alkaline Phosphatase 85 (34-104) Units/L Albumin 3.2 L (3.5-5.7) g/dL - ABG Interpretation ABG results: ABG ABG pH 7.32 pH Units (7.32-7.45) 10/18/17 08:16 ABG pCO2 56 mmHg (35-45) H 10/18/17 08:16 ABG pO2 104 mmHg (85-104) 10/18/17 08:16 ABG O2 Saturation 97 % (95-98) 10/18/17 08:16 PT/INR, D-dimer PT 11.5 Seconds (9.4-12.1) 10/18/17 07:54 Consult Discharge Plan - Plan Referrals: Nallely Hanna, BULWARK CARPENTER [Primary Care Provider] - (WEB REQUEST SENT ON 10/20/17)
[2017-10-20] MEDS ORDERED: Doxycycline 100 MG CAPSULE PO SCH (18:00)
[2017-10-20] MEDS: Acetaminophen 325 MG TABLET PO PRN (18:42)
--- NOTE | 2017-10-20 20:44 | Nephrology Progress Note ---
Date of Encounter: 10/20/17 Time of Encounter: 11:00 - Assessment and Plan (1) ESRD needing dialysis Status: Acute Continue HD with UF goal of 4-5kg as tolerated Will plan another UF session tomorrow if still hospitalized Fluid restriction advised Continue renal diet (2) Fluid overload Status: Acute Continue fluid restriction Strict I/Os Qualifiers: Hypervolemia type: other Qualified Code(s): E87.79 - Other fluid overload (3) Anemia Status: Acute Hgb fairly stable at 8.4, will monitor Qualifiers: Anemia type: due to chronic kidney disease Chronic kidney disease stage: on chronic dialysis Qualified Code(s): N18.6 - End stage renal disease; D63.1 - Anemia in chronic kidney disease; D63.1 - Anemia in chronic kidney disease; Z99.2 - Dependence on renal dialysis; Z99.2 - Dependence on renal dialysis; Z99.2 - Dependence on renal dialysis; Z99.2 - Dependence on renal dialysis (4) Hyponatremia Status: Acute Sodium noted slightly better at 126 etiolgy is due to hypervolemia with excessive fluid intake Should improve with HD today Fluid restriction advised Subjective Interval history: Pt seen and examined on HD still feeling better. No new complaints Objective - Vital Signs Vital signs: Vital Signs Temp Pulse Resp BP Pulse Ox 10/20/17 20:33 18 98 10/20/17 17:22 98.0 F 90 16 129/68 97 10/20/17 15:40 18 97 10/20/17 14:00 97.7 F 18 127/77 10/20/17 13:45 111/72 10/20/17 13:30 121/72 10/20/17 13:15 116/71 10/20/17 13:00 105/69 10/20/17 12:45 102/61 10/20/17 12:30 110/65 10/20/17 12:15 118/71 10/20/17 12:00 110/68 10/20/17 11:45 109/68 10/20/17 11:30 132/74 10/20/17 11:15 142/82 10/20/17 11:00 146/80 10/20/17 10:45 163/88 10/20/17 10:30 161/83 10/20/17 10:15 168/83 10/20/17 10:00 97.5 F L 18 171/89 10/20/17 06:50 98.9 F 79 16 143/75 100 10/20/17 06:37 98.3 F 87 16 155/80 95 10/20/17 03:18 97.6 F 89 16 144/80 94 10/19/17 23:53 17 91 10/19/17 23:29 98 F 86 16 167/88 90 Intake and Output 10/20/17 10/20/17 10/20/17 07:59 15:59 23:59 Intake Total 600 / 600 Output Total 5600 / 5600 Balance -5000 / -5000 Intake: Oral 0 / 0 Intake, Rinseback and Flushes 600 / 600 Output: Urine 0 / 0 Total Dialysis (HD) Output 5600 / 5600 Other: # Voids 1 Weight 89.018 kg 89.018 kg Hemodialysis Net Fluid Removed 5000 (mL) Patient Weight 10/20/17 23:59 Weight 89.018 kg - General Appearance General appearance: Present: chronically ill EENT: Present: ATNC, mucous membranes moist Neck: Present: no JVD, supple Respiratory: Present: clear Cardiology: Present: edema (improved), normal S1, normal S2 Dialysis Vascular Access: Venous Catheter (permcath) Gastrointestinal: Present: no tenderness, no guarding Integumentary: Present: warm and dry Neurologic: Present: no focal deficit Musculoskeletal: Present: no deformities Psychiatric: Present: mood/affect appropriate, cooperative - Lab 10/21/17 06:57 10/21/17 06:57 Most recent lab results ABG pH 7.32 pH Units (7.32-7.45) 10/18/17 08:16 ABG pCO2 56 mmHg (35-45) H 10/18/17 08:16 ABG pO2 104 mmHg (85-104) 10/18/17 08:16 ABG HCO3 29 mEq/L (21-27) H 10/18/17 08:16 ABG O2 Saturation 97 % (95-98) 10/18/17 08:16 Calcium 8.7 mg/dL (8.6-10.3) 10/20/17 03:19 Magnesium 1.7 mg/dL (1.6-2.6) 10/19/17 02:41 Consult Discharge Plan - Plan Instructions: Heart Failure (DC) Additional Instructions: F/up with PCP in 1-2 weeks F/up for HD 3times/week- MWF Referrals: Nallely Hanna CNP [Primary Care Provider] - (WEB REQUEST SENT ON 10/20/17) Prescriptions: Albuterol Sulfate [Proair Hfa] 2 puff IH Q4H PRN 30 Days hfa.aer.ad PRN Reason: Shortness Of Breath
[2017-10-21] MEDS: Ipratropium/Albuterol Neb 3 ML IH SCH ×5 (00:51→15:38)
[2017-10-21] MEDS: MethylPREDNISolone 40 MG/ML VIAL IVP SCH ×2 (01:00→08:26)
[2017-10-21] MEDS: *HR* Heparin 5,000 UNIT/ML VIAL SQ SCH ×2 (05:47→13:35)
[2017-10-21 07:12] LABS: Hematocrit 27.5 % (37.5-50.1); Hemoglobin 8.6 g/dL (12.9-16.9); Immature Granulocytes % 1.4 % (0-4); Lymphocytes # 0.7 K/mcL (0.6-4.6); Mean Corpuscular HGB Conc 31.3 g/dL (31.6-35.5); Mean Corpuscular Hemoglobin 25.7 pg (28.0-33.3); Mean Corpuscular Volume 82.1 fL (83.0-100.0); Mean Platelet Volume 10.2 fL (9.4-12.4); Monocytes # 0.4 K/mcL (0.0-1.3); Monocytes % 5.3 %; Neutrophils # 5.4 K/mcL (1.6-8.9); Platelet Count 181 K/mcL (140-400); Red Blood Count 3.35 M/mcL (4.19-5.50); Segmented Neutrophils % 82.3 %
[2017-10-21] MEDS: Acetaminophen 325 MG TABLET PO PRN ×2 (07:32→13:35)
[2017-10-21 07:37] LABS: Albumin/Globulin Ratio 1.2 (1.1-2.2); Bilirubin,Total 0.3 mg/dL (0.3-1.0); Globulin 2.5 g/dL (2.4-3.5); Potassium 3.7 mEq/L (3.5-5.1); Total Protein 5.5 g/dL (6.4-8.9)
[2017-10-21] MEDS: Furosemide 40 MG TABLET PO SCH ×2 (08:25→16:55)
[2017-10-21] MEDS: Isosorbide MONOnitrate (24 HR) 30 MG TAB.ER.24H PO SCH (08:25)
[2017-10-21] MEDS: Nitroglycerin 0.4 MG PATCH.TD24 TD SCH (08:25)
[2017-10-21] MEDS: tiZANidine 4 MG TABLET PO SCH ×2 (08:26→14:49)
[2017-10-21] MEDS: Calcium Acetate 667 MG CAPSULE PO SCH ×3 (08:26→16:55)
[2017-10-21] MEDS: Gabapentin 300 MG CAPSULE PO SCH (08:26)
[2017-10-21] MEDS: Aspirin 81 MG TAB.CHEW PO SCH (08:26)
[2017-10-21] MEDS: Budesonide/Formoterol 80/4.5 MDI IH SCH (08:33)
[2017-10-21] MEDS ORDERED: 0.9 % Sodium Chloride 250 ML IVC PRN (08:48)
[2017-10-21] MEDS ORDERED: *HR* Heparin 10,000 UNIT/10 ML VIAL IV PRN (08:48)
[2017-10-21] MEDS ORDERED: 0.9 % Sodium Chloride 2,000 ML ONE (10:57)
--- NOTE | 2017-10-21 11:39 | Nephrology Progress Note ---
<GrovesZay bellhola Mendoza - Last Filed: 10/21/17 11:42> Date of Encounter: 10/21/17 Time of Encounter: 11:37 - Assessment and Plan (1) ESRD needing dialysis Status: Acute UF today If dishcarged today f/u in regular outpatient dialysis unit, [facility] Follow renal diet Fluid restriction 1.5 liters/day (2) Fluid overload Status: Acute see above Qualifiers: Hypervolemia type: other Qualified Code(s): E87.79 - Other fluid overload (3) Anemia Status: Chronic Hgb 8.6 Goal hgb 10-11 Transfuse per parameters Qualifiers: Anemia type: unspecified type Qualified Code(s): D64.9 - Anemia, unspecified; D63.1 - Anemia in chronic kidney disease; D63.1 - Anemia in chronic kidney disease; Z99.2 - Dependence on renal dialysis; Z99.2 - Dependence on renal dialysis; Z99.2 - Dependence on renal dialysis; Z99.2 - Dependence on renal dialysis (4) Hyponatremia Status: Acute Na+ 130 improved Should continue to improve with HD Subjective Principal diagnosis: ESRD on dialysis, fluid overload Interval history: Patient seen and examined in dialysis. States he is being discharged after his HD treatment today. Objective - Vital Signs Vital signs: Vital Signs Temp Pulse Resp BP Pulse Ox 10/21/17 10:55 99/63 10/21/17 10:40 115/60 10/21/17 10:25 105/62 10/21/17 10:10 103/69 10/21/17 09:55 101/59 10/21/17 09:40 97.4 F L 19 128/73 10/21/17 08:35 18 97 10/21/17 08:34 98 10/21/17 07:02 98.2 F 93 16 162/76 98 10/21/17 00:52 18 97 10/21/17 00:08 98.4 F 81 18 159/78 98 10/20/17 21:53 98.1 F 85 18 161/50 96 10/20/17 20:33 18 98 10/20/17 17:22 98.0 F 90 16 129/68 97 10/20/17 15:40 18 97 10/20/17 14:00 97.7 F 18 127/77 10/20/17 13:45 111/72 01/08/18 13:30 121/72 10/20/17 13:15 116/71 10/20/17 13:00 105/69 10/20/17 12:45 102/61 10/20/17 12:30 110/65 10/20/17 12:15 118/71 10/20/17 12:00 110/68 10/20/17 11:45 109/68 Intake and Output 10/20/17 10/21/17 10/21/17 23:59 07:59 15:59 Intake Total 237 / 237 840 / 840 Output Total 0 / 0 Balance 237 / 237 840 / 840 Intake: Oral 237 / 237 240 / 240 Intake, Rinseback and Flushes 600 / 600 Output: Urine 0 / 0 Other: Meal Breakfast Percent of Meal Consumed 100% Stool Size Moderate Stool Consistency soft formed Stool Characteristics Normal for Patient Stool Color Brown # Voids 1 # Bowel Movements 1 Hemodialysis Net Fluid Removed 4209 (mL) - General Appearance General appearance: Present: well-nourished EENT: Present: ATNC, mucous membranes moist, hearing intact, vision intact Neck: Present: supple Respiratory: Present: clear Cardiology: Present: edema, normal S1, normal S2 Gastrointestinal: Present: no tenderness, no guarding Integumentary: Present: warm and dry Neurologic: Present: alert and oriented x3 Psychiatric: Present: mood/affect appropriate, cooperative - Lab 10/21/17 06:57 10/21/17 06:57 Most recent lab results ABG pH 7.32 pH Units (7.32-7.45) 10/18/17 08:16 ABG pCO2 56 mmHg (35-45) H 10/18/17 08:16 ABG pO2 104 mmHg (85-104) 10/18/17 08:16 ABG HCO3 29 mEq/L (21-27) H 10/18/17 08:16 ABG O2 Saturation 97 % (95-98) 10/18/17 08:16 Calcium 8.0 mg/dL (8.6-10.3) L 10/21/17 06:57 Magnesium 1.7 mg/dL (1.6-2.6) 10/19/17 02:41 Consult Discharge Plan - Plan Instructions: Heart Failure (DC) Additional Instructions: F/up with PCP in 1-2 weeks F/up for HD 3times/week- MWF Referrals: Nallely Hanna CNP [Primary Care Provider] - (WEB REQUEST SENT ON 10/20/17) Prescriptions: Albuterol Sulfate [Proair Hfa] 2 puff IH Q4H PRN 30 Days hfa.aer.ad PRN Reason: Shortness Of Breath <Michael Preciado - Last Filed: 11/23/17 23:53> Date of Encounter: 10/21/17 - Assessment and Plan (1) ESRD needing dialysis Status: Acute (2) Fluid overload Status: Acute Qualifiers: Hypervolemia type: other Qualified Code(s): E87.79 - Other fluid overload (3) Anemia Status: Acute Qualifiers: Anemia type: due to chronic kidney disease Chronic kidney disease stage: on chronic dialysis Qualified Code(s): N18.6 - End stage renal disease; D63.1 - Anemia in chronic kidney disease; D63.1 - Anemia in chronic kidney disease; Z99.2 - Dependence on renal dialysis; Z99.2 - Dependence on renal dialysis; Z99.2 - Dependence on renal dialysis; Z99.2 - Dependence on renal dialysis (4) Hyponatremia Status: Acute Objective - Lab 10/21/17 06:57 10/21/17 06:57 Most recent lab results ABG pH 7.32 pH Units (7.32-7.45) 10/18/17 08:16 ABG pCO2 56 mmHg (35-45) H 10/18/17 08:16 ABG pO2 104 mmHg (85-104) 10/18/17 08:16 ABG HCO3 29 mEq/L (21-27) H 10/18/17 08:16 ABG O2 Saturation 97 % (95-98) 10/18/17 08:16 Calcium 8.0 mg/dL (8.6-10.3) L 10/21/17 06:57 Magnesium 1.7 mg/dL (1.6-2.6) 10/19/17 02:41 - Attending Attestation I examined this patient and my medical decision-making was reviewed with the Resident Physician?MEKHI. I agree with the documented findings, disposition and treatment plan as described except to the extent set forth below. Pt seen and examined on HD with no new complaints. Eager to go home. Will continue UF today with goal of 4-5kg as tolerated. If discharged, can resume outpatient HD tomorrow.
[2017-10-21] MEDS ORDERED: Silvasorb 44.4 ML TUBE TP SCH (11:45)
--- NOTE | 2017-10-21 14:07 | Discharge Summary ---
Date of Encounter: 10/21/17 Time of Encounter: 09:00 - Discharge Diagnosis (1) Fluid overload Priority: Primary Status: Acute Qualifiers: Hypervolemia type: other Qualified Code(s): E87.79 - Other fluid overload (2) Noncompliance Priority: Primary Status: Chronic (3) Depression Priority: Secondary Status: Chronic Qualifiers: Depression Type: unspecified Qualified Code(s): F32.9 - Major depressive disorder, single episode, unspecified (4) Anxiety Priority: Secondary Status: Chronic (5) Anemia Priority: Secondary Status: Chronic Qualifiers: Anemia type: due to chronic kidney disease Chronic kidney disease stage: on chronic dialysis Qualified Code(s): N18.6 - End stage renal disease; D63.1 - Anemia in chronic kidney disease; D63.1 - Anemia in chronic kidney disease; Z99.2 - Dependence on renal dialysis; Z99.2 - Dependence on renal dialysis; Z99.2 - Dependence on renal dialysis; Z99.2 - Dependence on renal dialysis (6) ESRD (end stage renal disease) on dialysis Priority: Secondary Status: Chronic (7) COPD (chronic obstructive pulmonary disease) Priority: Secondary Status: Chronic Qualifiers: COPD type: unspecified COPD Qualified Code(s): J44.9 - Chronic obstructive pulmonary disease, unspecified (8) HTN (hypertension) Priority: Secondary Status: Chronic Qualifiers: Hypertension type: essential hypertension Qualified Code(s): I10 - Essential (primary) hypertension (9) Anasarca Priority: Primary Status: Chronic (10) CAD (coronary artery disease) Priority: Secondary Status: Chronic Qualifiers: Coronary Disease-Associated Artery/Lesion type: tribe artery [place] vs. transplanted heart: tribe heart Associated angina: without angina Qualified Code(s): I25.10 - Atherosclerotic heart disease of tribe coronary artery without angina pectoris (11) DEE (obstructive sleep apnea) Priority: Secondary Status: Chronic (12) Chronic respiratory failure Priority: Secondary Status: Chronic Qualifiers: Respiratory failure complication: hypoxia Qualified Code(s): J96.11 - Chronic respiratory failure with hypoxia (13) Hematoma of left lower extremity Priority: Secondary Status: Chronic Qualifiers: Encounter type: subsequent encounter Qualified Code(s): S80.12XD - Contusion of left lower leg, subsequent encounter - Discharge Medications Prescriptions: Albuterol Sulfate [Proair Hfa] 2 puff IH Q4H PRN 30 Days hfa.aer.ad PRN Reason: Shortness Of Breath prednisoLONE [Prelone] 40 mg PO DAILY 5 Days [facility] [place] Home Medications: Citalopram [CeleXA] 40 mg PO DAILY 10/02/15 [History] Fluticasone/Salmeterol [Advair 250-50 Diskus] 1 puff IH BID 10/02/15 [History] Furosemide [Lasix] 40 - 80 mg PO BID PRN 10/02/15 [History] Lidocaine Patch [Lidoderm 5% patch] 1 patch TP DAILY 10/02/15 [History] hydrOXYzine HCl [Hydroxyzine HCl] 25 mg PO TID 10/02/15 [History] Isosorbide MONOnitrate (24 HR) [Imdur] 30 mg PO DAILY #30 tab.er.24h 09/03/16 [ Rx] Ergocalciferol (VITAMIN D2) [Vitamin D2] 50,000 unit PO MO 11/03/16 [History] Lisinopril [Zestril] 10 mg PO DAILY 11/03/16 [History] Simvastatin [Zocor] 40 mg PO HS 11/03/16 [History] Tizanidine HCl [Zanaflex] 4 mg PO TID 11/03/16 [History] Ipratropium/Albuterol Sulfate [Combivent Respimat Inhal [place]] 1 puff IH QID 04/28 [History] Aspirin 81 mg PO DAILY #30 tab.chew 11/24/16 [Rx] Calcium Acetate [Phos-LO] 1,334 mg PO TIDWM 05/08/17 [History] Tramadol HCl [Ultram] 50 mg PO TID PRN 05/08/17 [History] Ipratropium/Albuterol Neb [Duoneb] 3 ml IH Q4HR #90 vial.neb 07/25/17 [Rx] Carvedilol 12.5 mg PO BID 07/30/17 [History] Gabapentin [Neurontin] 600 mg PO BID 08/24/17 [History] Doxycycline 100 mg PO BID 10/18/17 [History] Guaifenesin/Codeine Phosphate [Guaifenesin-Codeine Syrup] 10 ml PO Q6H PRN 10/18 [History] Potassium Chloride [K-Tab ER] 20 meq PO DAILY 10/18/17 [History] Sertraline [Zoloft] 50 mg PO DAILY 10/18/17 [History] Albuterol Sulfate [Proair Hfa] 2 puff IH Q4H PRN 30 Days hfa.aer.ad 10/21/17 [ Rx] Silvasorb 1 appl TP DAILY tube 10/21/17 [Rx] prednisoLONE [Prelone] 40 mg PO DAILY 5 Days udc 10/21/17 [Rx] Allergies/Adverse Reactions: 3 Allergy/AdvReac Type Severity Reaction Status Date / Time bee venom protein (honey bee) AdvReac Swelling Verified 06/30/17 04:08 of Lip/Tongue/Throat potassium AdvReac Vomiting Verified 06/30/17 04:08 prednisone AdvReac Nausea Verified 10/21/17 10:00 Date of admission: 10/18/17 09:34 Primary care physician: Nallely Hanna CNP Consults: 10/18/17 10:00 Consult to Dialysis [CONS] ONCE 10/20/17 09:45 Consult to Dialysis [CONS] ONCE 10/21/17 09:00 Consult to Dialysis [CONS] ONCE 10/21/17 10:31 Consult to Wound Care [CONS] Routine Reason for Consult: Left lower extremity wound Call Completed: Yes Discharging clinician: Tish Vidal Anticipated date of discharge: 10/21/17 - Patient Status Disposition: Home Health Service Condition: Fair Functional capacity at discharge: uses cane/walker Overall status at discharge: patient is progressing back to baseline - Discharge Instructions Instructions: Heart Failure (DC) Follow Up With: Nallely Hanna CNP [Primary Care Provider] - (WEB REQUEST SENT ON 10/20/17) Additional Instructions: F/up with PCP in 1-2 weeks F/up for HD 3times/week- MWF - Diet and Activity Activity: as per physical therapy, wear oxygen at all times Diet: low fat, low cholesterol, low salt diet, other (renal diet) Hospital course: Mr. Castro is a 52 year old male with multiple medical problems as mentioned above and with recurrent admissions for volume overload, was admitted with cough and shortness of breath. Acute bronchitis was suspected and he was given antibiotics, which was later ruled out. He was noted to have volume overload as he was noted to be noncompliant with fluid restriction at home. Nephrology was consulted and patient underwent extra HD sessions and UF to remove excess fluid and his symptoms improved significantly. He is back to baseline O2 requirements and likes to be discharged today. He is otherwise medically stable, case d/w Nephrology. - Time Spent with Patient Total time spent providing and/or coordinating discharge services: Greater than 30 minutes (45 min) - Constitutional Vitals: Temp Pulse Resp BP Pulse Ox 97.4 F L 93 19 136/106 97 10/21/17 09:40 10/21/17 07:02 10/21/17 09:40 10/21/17 11:35 10/21/17 08:35 General appearance: Present: A&O X 3, answers questions appropriately - Respiratory Respiratory exam: Present: CTAB, rales (bibasal crackles). Absent: accessory muscle use, rhonchi, wheezes
--- NOTE | 2017-10-21 14:15 | Physician Discharge Referral ---
Home Health/Hosp Referral Info Transfer to: Home Health Attending Provider: Tish Vidal Provider in Charge Post Discharge: PCP - Diagnosis (1) Fluid overload Priority: Primary Status: Acute (2) Noncompliance Priority: Primary Status: Chronic (3) Depression Priority: Secondary Status: Chronic (4) Anxiety Priority: Secondary Status: Chronic (5) Anemia Priority: Secondary Status: Chronic (6) ESRD (end stage renal disease) on dialysis Priority: Secondary Status: Chronic (7) COPD (chronic obstructive pulmonary disease) Priority: Secondary Status: Chronic (8) HTN (hypertension) Priority: Secondary Status: Chronic (9) Anasarca Priority: Primary Status: Chronic (10) CAD (coronary artery disease) Priority: Secondary Status: Chronic (11) DEE (obstructive sleep apnea) Priority: Secondary Status: Chronic (12) Chronic respiratory failure Priority: Secondary Status: Chronic (13) Hematoma of left lower extremity Priority: Secondary Status: Chronic - Respiratory Orders Oxygen / L per min (2-3L/min) Smoking Cessation: Smoking cessation has been advised. For more information, call the [place] Tobacco Quit Line at 6-501-HFWZ-NOW. - Diet/Nutrition Diet/Nutrition Orders: No Added Salt (ORDDY), Renal, Cardiac - Activity Activity Orders: Ambulate, Walker - Services Needed Following services are medically necessary services: Nursing, Physical Therapy, Occupational Therapy - Transfer Medications Prescriptions: Albuterol Sulfate [Proair Hfa] 2 puff IH Q4H PRN 30 Days hfa.aer.ad PRN Reason: Shortness Of Breath prednisoLONE [Prelone] 40 mg PO DAILY 5 Days [facility] [place] Medications: Citalopram [CeleXA] 40 mg PO DAILY 10/02/15 [History] Fluticasone/Salmeterol [Advair 250-50 Diskus] 1 puff IH BID 10/02/15 [History] Furosemide [Lasix] 40 - 80 mg PO BID PRN 10/02/15 [History] Lidocaine Patch [Lidoderm 5% patch] 1 patch TP DAILY 10/02/15 [History] hydrOXYzine HCl [Hydroxyzine HCl] 25 mg PO TID 10/02/15 [History] Isosorbide MONOnitrate (24 HR) [Imdur] 30 mg PO DAILY #30 tab.er.24h 09/03/16 [ Rx] Ergocalciferol (VITAMIN D2) [Vitamin D2] 50,000 unit PO MO 11/03/16 [History] Lisinopril [Zestril] 10 mg PO DAILY 11/03/16 [History] Simvastatin [Zocor] 40 mg PO HS 11/03/16 [History] Tizanidine HCl [Zanaflex] 4 mg PO TID 11/03/16 [History] Ipratropium/Albuterol Sulfate [Combivent Respimat Inhal [place]] 1 puff IH QID 04/28 [History] Aspirin 81 mg PO DAILY #30 tab.chew 11/24/16 [Rx] Calcium Acetate [Phos-LO] 1,334 mg PO TIDWM 05/08/17 [History] Tramadol HCl [Ultram] 50 mg PO TID PRN 05/08/17 [History] Ipratropium/Albuterol Neb [Duoneb] 3 ml IH Q4HR #90 vial.neb 07/25/17 [Rx] Carvedilol 12.5 mg PO BID 07/30/17 [History] Gabapentin [Neurontin] 600 mg PO BID 08/24/17 [History] Doxycycline 100 mg PO BID 10/18/17 [History] Guaifenesin/Codeine Phosphate [Guaifenesin-Codeine Syrup] 10 ml PO Q6H PRN 10/18 [History] Potassium Chloride [K-Tab ER] 20 meq PO DAILY 10/18/17 [History] Sertraline [Zoloft] 50 mg PO DAILY 10/18/17 [History] Albuterol Sulfate [Proair Hfa] 2 puff IH Q4H PRN 30 Days hfa.aer.ad 10/21/17 [ Rx] Silvasorb 1 appl TP DAILY tube 10/21/17 [Rx] prednisoLONE [Prelone] 40 mg PO DAILY 5 Days udc 10/21/17 [Rx] Allergies/Adverse Reactions: 3 Allergy/AdvReac Type Severity Reaction Status Date / Time bee venom protein (honey bee) AdvReac Swelling Verified 06/30/17 04:08 of Lip/Tongue/Throat potassium AdvReac Vomiting Verified 06/30/17 04:08 prednisone AdvReac Nausea Verified 10/21/17 10:00 Certification: Further, I certify that my clinical findings support that this patient is homebound (i.e. absences from home require considerable and taxing effort and are for medical reasons or [employer] services or infrequently or short duration when for other reasons) because: Homebound Reason: Patient requires assistance of a person or device to safely leave home, Severity of cardiac or pulmonary status limits activity tolerance Attestation: My signature below is to certify that this patient is under my care and that I, or nurse practitioner, or a physician's promotions assistant working with me, has a face-to -face encounter with this patient.
[2017-10-21 14:33] VITALS: BP 110/80
[2017-10-21] MEDS ORDERED: predniSONE 20 MG TABLET PO SCH (16:00)
[2017-10-21] MEDS ORDERED: PrednisoLONE Oral Soln 15 MG/5 ML UDC PO SCH (16:00)
== END 2017-10-21 17:50 | disposition home health service (06) | DRG 140 ==
LOC: EMEROO 07:36 → SUATTDRO 09:34 → 2ANU 09:34
PROVIDERS: ADMIT Hospitalist; ATTEND Internal Medicine

== ENCOUNTER 2017-10-27 04:10 | Inpatient (IN) ==
[2017-10-27] MEDS ORDERED: Ipratropium/Albuterol Neb 3 ML IH ONE (04:22)
[2017-10-27] MEDS ORDERED: methylPREDNISolone 125 MG/2 ML VIAL IVP ONE (04:22)
--- NOTE | 2017-10-27 04:41 | Emergency Department Note ---
START Narrative - START START: I examined this patient and my medical decision-making was reviewed with the Resident Physician. I agree with the documented findings, disposition and treatment plan as described except to the extent set forth below. Dyspnea, ESRD , now with systemic edema and dyspnea requiring bipap. Patient was hypoxic on arrival and was placed on cpap by paramedics. Will get cxr, continue BIPAP, plan to admit for hypoxia and dyspnea. Carter cultures will be obtained. I spent greater than 35 minutes of critical care time resuscitating this acutely ill patient suffering from hypoxia. This is excluding billable procedures.
[2017-10-27 04:51] LABS: INR 1.1; Prothrombin Time 11.6 Seconds (9.4-12.1)
[2017-10-27 04:55] LABS: Calcium 7.7 mg/dL (8.6-10.3); Potassium 3.4 mEq/L (3.5-5.1)
[2017-10-27 05:01] LABS: Mixed Venous Blood pCO2 61 mmHg (44-46); Mixed Venous Blood pO2 39 mmHg (35-45)
[2017-10-27 05:21] LABS: Eosinophils # 0.3 K/mcL (0.0-0.6); Eosinophils % 2.2 %; Hematocrit 29.4 % (37.5-50.1); Hemoglobin 9.4 g/dL (12.9-16.9); Immature Granulocytes % 0.5 % (0-4); Immature Platelets 4.2 % (1.1-6.1); Lymphocytes # 0.8 K/mcL (0.6-4.6); Lymphocytes % 5.8 %; Mean Corpuscular Hemoglobin 26.2 pg (28.0-33.3); Mean Corpuscular Volume 81.9 fL (83.0-100.0); Mean Platelet Volume 9.4 fL (9.4-12.4); Monocytes % 6.6 %; Neutrophils # 12.3 K/mcL (1.6-8.9); Platelet Count 314 K/mcL (140-400); Red Blood Count 3.59 M/mcL (4.19-5.50); Red Cell Distribution Width 18.6 % (11.5-14.5); Segmented Neutrophils % 84.9 %
[2017-10-27] MEDS ORDERED: Levofloxacin 750 MG/150 ML 750 MG/150 ML BAG IVPB ONE (05:31)
[2017-10-27] MEDS ORDERED: Piperacillin/Tazobactam 3.375 GM in D5% in Water (Mini-Bag+) 100 ML IVPB ONE (05:31)
--- NOTE | 2017-10-27 05:35 | Emergency Department Note ---
Disposition Clinical Impression: COPD exacerbation Pneumonia Qualifiers: Pneumonia type: due to unspecified organism Laterality: unspecified laterality Lung location: unspecified part of lung Qualified Code(s): J18.9 - Pneumonia, unspecified organism Disposition: Admitted As Inpatient Condition: Good Referrals: Nallely Hanna CNP [Primary Care Provider] - Forms: ED Satisfaction Letter SOB HPI - General Chief Complaint: ED Shortness of Breath/Dyspnea Stated Complaint: ANNETTA Time Seen by Provider: 10/27/17 04:21 Source: patient, EMS Limitations: no limitations Nursing Notes Reviewed: Yes Vital Signs Reviewed: Yes - History of Present Illness Patient with past medical history of dialysis, COPD, CHF, coronary artery disease on home oxygen presents for evaluation of shortness of breath. Patient states that he was sick all week with diarrhea. The patient has had shortness of breath has been getting worse over the weekend and is acutely worse last night. Patient has had cough but no sputum production. Patient states that he is felt under the weather with chills and malaise but no fever. Patient is known to be noncompliant. Patient was given a DuoNeb by squad and placed on positive pressure. Patient's symptoms were improving. Patient was initially placed on BiPAP, labs drawn, chest x-ray ordered. - Related Data Home Medications Medication Instructions Recorded Confirmed Citalopram [CeleXA] 40 mg PO DAILY 10/02/15 10/27/17 Fluticasone/Salmeterol [Advair 1 puff IH BID 10/02/15 10/27/17 250-50 Diskus] Furosemide [Lasix] 40 - 80 mg PO BID PRN 10/02/15 10/27/17 Lidocaine Patch [Lidoderm 5% patch] 1 patch TP DAILY 10/02/15 10/27/17 hydrOXYzine HCl [Hydroxyzine HCl] 25 mg PO TID 10/02/15 10/27/17 Ergocalciferol (VITAMIN D2) 50,000 unit PO MO 11/03/16 10/27/17 [Vitamin D2] Lisinopril [Zestril] 10 mg PO DAILY 11/03/16 10/27/17 Simvastatin [Zocor] 40 mg PO HS 11/03/16 10/27/17 Tizanidine HCl [Zanaflex] 4 mg PO TID 11/03/16 10/27/17 Ipratropium/Albuterol Sulfate 1 puff IH QID 11/19/16 10/27/17 [Combivent Respimat Inhal [place]] Calcium Acetate [Phos-LO] 1,334 mg PO TIDWM 05/08/17 10/27/17 Tramadol HCl [Ultram] 50 mg PO TID PRN 05/08/17 10/27/17 Carvedilol 12.5 mg PO BID 07/30/17 10/27/17 Gabapentin [Neurontin] 600 mg PO BID 08/24/17 10/27/17 Doxycycline 100 mg PO BID 10/18/17 10/18/17 Guaifenesin/Codeine Phosphate 10 ml PO Q6H PRN 10/18/17 10/27/17 [Guaifenesin-Codeine Syrup] Potassium Chloride [K-Tab ER] 20 meq PO DAILY 10/18/17 10/27/17 Sertraline [Zoloft] 50 mg PO DAILY 10/18/17 10/27/17 Previous Rx's Medication Instructions Recorded Isosorbide MONOnitrate (24 HR) 30 mg PO DAILY #30 tab.er.24h 09/03/16 [Imdur] Aspirin 81 mg PO DAILY #30 tab.chew 11/24/16 Ipratropium/Albuterol Neb [Duoneb] 3 ml IH Q4HR #90 vial.neb 07/25/17 Albuterol Sulfate [Proair Hfa] 2 puff IH Q4H PRN 30 Days 10/21/17 hfa.aer.ad Silvasorb 1 appl TP DAILY tube 10/21/17 prednisoLONE [Prelone] 40 mg PO DAILY 5 Days udc 10/21/17 Allergies Allergy/AdvReac Type Severity Reaction Status Date / Time bee venom protein (honey bee) AdvReac Swelling Verified 06/30/17 04:08 of Lip/Tongue/Throat potassium AdvReac Vomiting Verified 06/30/17 04:08 prednisone AdvReac Nausea Verified 10/21/17 10:00 Review of Systems: CONSTITUTIONAL: chills, weakness, fatigue, malaise HEENT: Eyes: No visual changes. Ears, Nose, Throat: No hearing loss, difficulty talking or unable to swallow. SKIN: No rash or itching. CARDIOVASCULAR: No chest pain, chest pressure or chest discomfort. No palpitations or edema. RESPIRATORY: Shortness of breath with cough. No sputum production GASTROINTESTINAL: No anorexia, nausea, vomiting or diarrhea. No abdominal pain or blood. GENITOURINARY: No burning on urination or hematuria. NEUROLOGICAL: No headache, dizziness, syncope, paralysis, ataxia, numbness or tingling in the extremities. No change in bowel or bladder control. MUSCULOSKELETAL: No muscle pain, back pain, joint pain or stiffness. Past Medical History - Past Medical History Medical history: Reports: arthritis, CHF, COPD, coronary artery disease, dialysis, GERD, hyperlipidemia, hypertension, myocardial infarction, osteoporosis, peripheral artery disease, renal disease, other Surgical history: Reports: non-contributory, vascular surgery, other Psychiatric history: Reports: anxiety, depression, other - Social History Smoking Status: Current every day smoker Smokeless Tobacco Status: Yes Alcohol use: Reports: none Drug use: Reports: marijuana Physical Exam General: Tachypnic with increased work of breathing. Head: Normocephalic Atraumatic Eyes: PERRL, EOMI ENT: Airway patent, no stridor Neck: supple, no meningismus Chest: Diffuse wheezing and rhonchi Cardiac: Regular rate and rhythm, no murmurs, rubs or gallops Abdomen: soft, nontender, nondistended; no guarding, rebound, or tenderness to percussion Musculoskeletal: Calves symmetric, nontender, no palpable cord Skin: No rash, normal skin tone Neuro: Alert and Oriented to person, place, and time; No focal deficit, CN 2-12 symmetric and intact - General Limitations: no limitations General appearance: alert, in distress Course - Reevaluation(s) Reevaluation #1: Patient has significantly improved on BiPAP. DuoNeb nebs and steroids been given. Chest x-ray shows effusion with possible pneumonia. In the setting of elevated white count. Patient is been placed on antibiotics. - Consultations Consultation #1: Discussed with hospitalist, Dr. Frey. Patient accepted for admission. Vital Signs Temperature 97.7 F 10/27/17 04:11 Pulse Rate 101 10/27/17 04:11 Respiratory Rate 28 10/27/17 04:11 Blood Pressure 170/95 10/27/17 04:11 O2 Sat by Pulse Oximetry 94 10/27/17 04:11 Temperature 97.7 F 10/27/17 04:11 Pulse Rate 87 10/27/17 05:31 Respiratory Rate 18 10/27/17 05:31 Blood Pressure 140/76 10/27/17 05:31 O2 Sat by Pulse Oximetry 96 10/27/17 05:31 Oxygen Delivery Oxygen Delivery Bipap Shortness of Breath/Dyspnea - Medical Records Medical records reviewed: Yes I reviewed the patient's medical records. - Lab Data Lab results reviewed: Yes I reviewed the patient's lab results. Result diagrams: 10/27/17 05:16 10/27/17 04:34 Lab Results 10/27/17 10/27/17 10/27/17 Range/Units 04:34 04:34 04:34 WBC (4.3-11.1) K/mcL RBC (4.19-5.50) M/mcL Hgb (12.9-16.9) g/dL Hct (37.5-50.1) % MCV (83.0-100.0) fL MCH (28.0-33.3) pg MCHC (31.6-35.5) g/dL RDW (11.5-14.5) % Plt Count (140-400) K/mcL MPV (9.4-12.4) fL Immature Gran % (0-4) % Seg Neutrophils % % Lymphocytes % % Monocytes % % Eosinophils % % Basophils % % Neutrophils # (1.6-8.9) K/mcL Lymphocytes # (0.6-4.6) K/mcL Monocytes # (0.0-1.3) K/mcL Eosinophils # (0.0-0.6) K/mcL Basophils # (0.0-0.2) K/mcL Immature Plt Fraction (1.1-6.1) % PT 11.6 (9.4-12.1) Seconds INR 1.1 Mixed VBG pH (7.34-7.36) pH Units Mixed VBG pCO2 (44-46) mmHg Mixed VBG pO2 (35-45) mmHg Sodium 124 L (136-145) mEq/L Potassium 3.4 L (3.5-5.1) mEq/L Chloride 87 L (98-107) mEq/L Carbon Dioxide 28 (23-29) mEq/L BUN 23 H (6-20) mg/dL Creatinine 3.82 H (0.70-1.30) mg/dL Est GFR ( Amer) 20 L (> 60) Est GFR (Non-Af Amer) 17 L (> 60) BUN/Creatinine Ratio 6 (6-26) Glucose 127 H (70-105) mg/dL Calculated Osmolality 263 L (280-300) Lactic Acid 1.1 (0.5-2.2) mmol/L Calcium 7.7 L (8.6-10.3) mg/dL Troponin I (< 0.04) ng/mL B-Natriuretic Peptide (Less than 100) pg/mL Specimen Rejected 10/27/17 10/27/17 10/27/17 Range/Units 04:34 04:34 04:38 WBC (4.3-11.1) K/mcL RBC (4.19-5.50) M/mcL Hgb (12.9-16.9) g/dL Hct (37.5-50.1) % MCV (83.0-100.0) fL MCH (28.0-33.3) pg MCHC (31.6-35.5) g/dL RDW (11.5-14.5) % Plt Count (140-400) K/mcL MPV (9.4-12.4) fL Immature Gran % (0-4) % Seg Neutrophils % % Lymphocytes % % Monocytes % % Eosinophils % % Basophils % % Neutrophils # (1.6-8.9) K/mcL Lymphocytes # (0.6-4.6) K/mcL Monocytes # (0.0-1.3) K/mcL Eosinophils # (0.0-0.6) K/mcL Basophils # (0.0-0.2) K/mcL Immature Plt Fraction (1.1-6.1) % PT (9.4-12.1) Seconds INR Mixed VBG pH (7.34-7.36) pH Units Mixed VBG pCO2 (44-46) mmHg Mixed VBG pO2 (35-45) mmHg Sodium (136-145) mEq/L Potassium (3.5-5.1) mEq/L Chloride (98-107) mEq/L Carbon Dioxide (23-29) mEq/L BUN (6-20) mg/dL Creatinine (0.70-1.30) mg/dL Est GFR ( Amer) (> 60) Est GFR (Non-Af Amer) (> 60) BUN/Creatinine Ratio (6-26) Glucose (70-105) mg/dL Calculated Osmolality (280-300) Lactic Acid (0.5-2.2) mmol/L Calcium (8.6-10.3) mg/dL Troponin I 0.04 H* (< 0.04) ng/mL B-Natriuretic Peptide 2430 H (Less than 100) pg/mL Specimen Rejected Miscellaneous 10/27/17 10/27/17 Range/Units 04:58 05:16 WBC 14.5 H D (4.3-11.1) K/mcL RBC 3.59 L (4.19-5.50) M/mcL Hgb 9.4 L (12.9-16.9) g/dL Hct 29.4 L (37.5-50.1) % MCV 81.9 L (83.0-100.0) fL MCH 26.2 L (28.0-33.3) pg MCHC 32.0 (31.6-35.5) g/dL RDW 18.6 H (11.5-14.5) % Plt Count 314 D (140-400) K/mcL MPV 9.4 (9.4-12.4) fL Immature Gran % 0.5 (0-4) % Seg Neutrophils % 84.9 % Lymphocytes % 5.8 % Monocytes % 6.6 % Eosinophils % 2.2 % Basophils % 0.0 % Neutrophils # 12.3 H (1.6-8.9) K/mcL Lymphocytes # 0.8 (0.6-4.6) K/mcL Monocytes # 1.0 (0.0-1.3) K/mcL Eosinophils # 0.3 (0.0-0.6) K/mcL Basophils # 0.0 (0.0-0.2) K/mcL Immature Plt Fraction 4.2 (1.1-6.1) % PT (9.4-12.1) Seconds INR Mixed VBG pH 7.30 L (7.34-7.36) pH Units Mixed VBG pCO2 61 H (44-46) mmHg Mixed VBG pO2 39 (35-45) mmHg Sodium (136-145) mEq/L Potassium (3.5-5.1) mEq/L Chloride (98-107) mEq/L Carbon Dioxide (23-29) mEq/L BUN (6-20) mg/dL Creatinine (0.70-1.30) mg/dL Est GFR ( Amer) (> 60) Est GFR (Non-Af Amer) (> 60) BUN/Creatinine Ratio (6-26) Glucose (70-105) mg/dL Calculated Osmolality (280-300) Lactic Acid (0.5-2.2) mmol/L Calcium (8.6-10.3) mg/dL Troponin I (< 0.04) ng/mL B-Natriuretic Peptide (Less than 100) pg/mL Specimen Rejected - Radiology Data Radiology results reviewed: Yes I reviewed the patient's radiology results. - EKG Data EKG attestation: Yes I reviewed and interpreted this EKG. EKG results narrative: EKG shows sinus rhythm with ventricular rate of 80. [place] interval 115. QRS 91. QTC 416. No significant elevations or depressions. Patient has flattening of the T waves inferiorly.
[2017-10-27] MEDS ORDERED: Piperacillin/Tazobactam 3.375 GM in Water for inj. (sterile) 20 ML 20 ML IVPB ONE (06:00)
[2017-10-27] MEDS ORDERED: Naloxone 0.4 MG/ML INJ IVP PRN (08:01)
--- NOTE | 2017-10-27 08:17 | Internal Med History&Physical ---
Date of Encounter: 10/27/17 Time of Encounter: 08:12 Assessment and Plan (1) Acute exacerbation of chronic obstructive airways disease Current visit: No Status: Acute 52/male Multiple comorbid as mentioned. Presented with worsening shortness of breath. Noted that he has a fluid overload as well as severity of her pneumonia. Bilateral basal crepitations present. Change in the color of the sputum as per patient. Plan: Admit as inpatient. Resume home medication. I spoke with the sanforizing machine operator for possible scheduling him today for her dialysis. Blood cultures: Done in the emergency room. Zosyn/levofloxacin: As per his dialysis schedule. Solu-Medrol/inhaled bronchodilators: Treatment for COPD/early pneumonia. Plan of care explained to the patient. He verbalized understanding. (2) ESRD (end stage renal disease) on dialysis Current visit: No Status: Chronic Patient is known to have end-stage renal disease this is likely secondary to his underlying comorbid conditions. (3) Fluid overload Current visit: No Status: Acute Patient is a fluid overload secondary to noncompliance with his hemodialysis. Qualifiers: Hypervolemia type: other Qualified Code(s): E87.79 - Other fluid overload (4) Noncompliance Current visit: No Status: Chronic Patient is very noncompliant with the his hemodialysis. He is hospitalized twice in a month for the past 1 year. (5) CAD (coronary artery disease) Current visit: No Status: Chronic Patient is known to have a coronary artery disease and this is likely secondary to the ESRD Qualifiers: Coronary Disease-Associated Artery/Lesion type: [place] artery [place] vs. transplanted heart: [place] heart Associated angina: without angina Qualified Code(s): I25.10 - Atherosclerotic heart disease of [place] coronary artery without angina pectoris (6) Elevated troponin Current visit: No Status: Acute Elevated troponin is likely secondary to demand ischemia. (7) HTN (hypertension) Current visit: No Status: Chronic His blood pressure is within acceptable range. Resume home medication. Qualifiers: Hypertension type: secondary to other renal disorders Qualified Code(s): I15.1 - Hypertension secondary to other renal disorders; N28.89 - Other specified disorders of kidney and ureter; N28.89 - Other specified disorders of kidney and ureter (8) DVT prophylaxis Current visit: No Status: Acute Antiembolic stockings. Medical decision making: This patient has a moderate to severe risk of worsening in spite of being on appropriate medication due to the persistent noncompliance and chronic comorbid conditions. Internal Medicine - H&P: HPI Chief complaint: ANNETTA Admitted From: Emergency Dept Plans for Post Hospital Care: Home History of present illness: PCP: Nurse practitioner Adiel roberts. Nephrology: Dr. Acevedo. Brief past medical history: Hypertension, COPD, coronary artery disease, end- stage renal disease, dialysis Friday/Friday/Friday, noncompliance with dialysis. History of present medical illness: This patient was discharged from the hospital less than a week ago. He is known to this facility extremely well as he comes frequently due to noncompliance with his dialysis. Last night patient was presented to emergency department with shortness of breath. She was also complaining of abdominal pain occasionally and feels episodes of her diarrhea. Patient is shortness of breath was getting progressively worse for the past 2 days. Patient claims that he is compliant with his fluid intake. Patient also told me that he is feeling nauseous, malaise and occasionally chills but denies any fever. Patient claims that he has a worsening cough along with the mucopurulent expectoration and there is a definitely change in color of his sputum. Patient denies chest pain, vomiting, dizziness or dysuria. Workup in the emergency room: Patient was evaluated in the emergency room. Basic labs were drawn. Chest x-ray was suggestive of a findings consistent with CHF. Labs were in favor of elevated white blood cell count along with potassium of 3.4. His influenza A and B were negative. Reason for admission: Possible pneumonia/fluid overload in a patient who has end -stage renal disease with dialysis. Family history noncontributory Past Med Surg Social Fam HX - Past Medical History Medical history: arthritis, CHF, COPD, coronary artery disease, dialysis, GERD, hyperlipidemia, hypertension, myocardial infarction, osteoporosis, peripheral artery disease, renal disease, other Psychiatric history: anxiety, depression, other - Past Surgical History Surgical History: non-contributory, vascular surgery, other - Social History Smoking Status: Current every day smoker Smokeless Tobacco Status: Yes Alcohol use: none Drug use: marijuana - Family History Mother Living Status: Hx Family Cardiac Disorders: Yes Father Adopted: No Living Status: Hx Family Cardiac Disorders: No Hx Family Respiratory Disorders: Yes Hx Family Cancer: Yes Hx Family GI Disorders: Yes Hx Family Endocrine Disorder: No Hx Family Neuromuscular Disorders: No Hx Family Neurologic Disorders: No Hx Family HEENT Disorders: No Hx Family Autoimmune Disorders: No Internal Medicine - H&P: Meds Citalopram [CeleXA] 40 mg PO DAILY 10/02/15 [History] Fluticasone/Salmeterol [Advair 250-50 Diskus] 1 puff IH BID 10/02/15 [History] Furosemide [Lasix] 40 - 80 mg PO BID PRN 10/02/15 [History] Lidocaine Patch [Lidoderm 5% patch] 1 patch TP DAILY 10/02/15 [History] hydrOXYzine HCl [Hydroxyzine HCl] 25 mg PO TID 10/02/15 [History] Isosorbide MONOnitrate (24 HR) [Imdur] 30 mg PO DAILY #30 tab.er.24h 09/03/16 [ Rx] Ergocalciferol (VITAMIN D2) [Vitamin D2] 50,000 unit PO MO 11/03/16 [History] Lisinopril [Zestril] 10 mg PO DAILY 11/03/16 [History] Simvastatin [Zocor] 40 mg PO HS 11/03/16 [History] Tizanidine HCl [Zanaflex] 4 mg PO TID 11/03/16 [History] Ipratropium/Albuterol Sulfate [Combivent Respimat Inhal [place]] 1 puff IH QID 04/28 [History] Aspirin 81 mg PO DAILY #30 tab.chew 11/24/16 [Rx] Calcium Acetate [Phos-LO] 1,334 mg PO TIDWM 05/08/17 [History] Tramadol HCl [Ultram] 50 mg PO TID PRN 05/08/17 [History] Ipratropium/Albuterol Neb [Duoneb] 3 ml IH Q4HR #90 vial.neb 07/25/17 [Rx] Carvedilol 12.5 mg PO BID 07/30/17 [History] Gabapentin [Neurontin] 600 mg PO BID 08/24/17 [History] Potassium Chloride [K-Tab ER] 20 meq PO DAILY 10/18/17 [History] Sertraline [Zoloft] 50 mg PO DAILY 10/18/17 [History] Albuterol Sulfate [Proair Hfa] 2 puff IH Q4H PRN 30 Days hfa.aer.ad 10/21/17 [ Rx] Silvasorb 1 appl TP DAILY tube 10/21/17 [Rx] prednisoLONE [Prelone] 40 mg PO DAILY 5 Days udc 10/21/17 [Rx] Ondansetron HCl [Zofran] 4 mg PO BID 10/27/17 [History] Sevelamer [Renvela] 800 mg PO 9XD 10/27/17 [History] Varenicline Tartrate [Chantix Continuing Months Pack] 1 tab PO BID 10/27/17 [ History] buPROPion HCl [Zyban] 150 mg PO BID 10/27/17 [History] 3 Allergy/AdvReac Type Severity Reaction Status Date / Time bee venom protein (honey bee) AdvReac Swelling Verified 06/30/17 04:08 of Lip/Tongue/Throat potassium AdvReac Vomiting Verified 06/30/17 04:08 prednisone AdvReac Nausea Verified 10/21/17 10:00 All Systems PM: A 10-system review of systems was performed and is negative for pertinent findings except as documented above in the HPI. - Constitutional Constitutional: no chills, no fever(s), no night sweats - EENT Eyes: no change in vision, no discharge, no pain, no photophobia Ears: no ear discharge, no ear pain, no tinnitus Nose, mouth and throat: no dysphagia, no nasal discharge, no neck pain, no sore throat - Cardiovascular Cardiovascular ROS IM: diaphoresis, no chest pain, no dyspnea, no lightheadedness, no palpitations, no syncope - Respiratory Respiratory: cough, dyspnea, wheezing, change in phlegm color, no excessive phlegm production - Gastrointestinal Gastrointestinal: no abdominal pain, no diarrhea, no hematemesis, no hematochezia, no melena, no nausea, no vomiting - Musculoskeletal Musculoskeletal ROS IM: no numbness, no tingling - Integumentary Integumentary IM: no rash, no unusual bruising - Neurological Neurological ROS: no confusion, no convulsions, no focal weakness, no numbness, no tingling, no tremor(s) - Hematologic/Lymphatic Hematologic/Lymphatic: no easy bruising - Constitutional Vitals: Temp Pulse Resp BP Pulse Ox 97.9 F 87 16 159/79 94 10/27/17 07:09 10/27/17 07:09 10/27/17 07:09 10/27/17 07:09 10/27/17 07:09 General appearance: Present: A&O X 3, pleasant, no acute distress, answers questions appropriately - Head Head exam: Present: atraumatic, normocephalic - Eye Eye exam: Present: PERRL, conjuntiva pink, sclera anicteric Pupils: Present: PERRL - Neck Neck exam general surgery: Present: supple, trachea midline. Absent: lymphadenopathy - Respiratory Respiratory exam: Present: CTAB. Absent: accessory muscle use, rales, rhonchi, wheezes - Cardiovascular Cardiovascular exam: Present: RRR, +S1, +S2. Absent: diastolic murmur, gallop, rubs, systolic murmur - GI/Abdominal GI/Abdominal exam: Present: normal bowel sounds, soft, no peritoneal signs. Absent: distended, tenderness - Extremities Exam Extremities exam: Present: warm, radial pulses palpable and symmetrical. Absent : calf tenderness, cyanotic, pedal edema - Neurological Exam Neurological exam: Present: CN II-XII intact, oriented X3, no focal deficits. Absent: pronater drift, facial droop, speech deficit - Skin Skin exam: Present: dry, intact Internal Med - H&P Results - Labs CBC & Chem 7: 10/27/17 05:16 10/27/17 04:34
[2017-10-27] MEDS ORDERED: 0.9 % Sodium Chloride 250 ML IVC PRN ×2 (08:32→09:23)
[2017-10-27] MEDS ORDERED: VARENICLINE TARTRATE 1 MG TABLET PO SCH (09:00)
[2017-10-27] MEDS ORDERED: Silvasorb 44.4 ML TUBE TP SCH (09:00)
[2017-10-27] MEDS ORDERED: Levofloxacin 750 MG/150 ML 750 MG/150 ML BAG IVPB SCH (09:00)
[2017-10-27] MEDS ORDERED: 0.9 % Sodium Chloride 1,000 ML PRIME SCH (09:30)
--- NOTE | 2017-10-27 09:35 | Nephrology Consult Note ---
Date of Encounter: 10/27/17 Time of Encounter: 09:34 Assessment and Plan (1) ESRD (end stage renal disease) on dialysis Current Visit: Yes Status: Chronic Continue HD as scheduled MWF Fluid restriction < 1 liter per day (2) Fluid overload Current Visit: Yes Status: Acute CXR reveals findings suggestive for CHF with small right-sided pleural effusion and adjacent consolidation which could be related atelectasis versus infiltrates. Echo 05/14/17 revealed EF 50%, moderate MR Strict I/Os advised Pt counselled on adherence to fluid restriction Repeat CXR in AM s/p HD Qualifiers: Hypervolemia type: other Qualified Code(s): E87.79 - Other fluid overload (3) Anemia in ESRD (end-stage renal disease) Current Visit: No Status: Chronic Hgb 9.4, likely due to CKD, will monitor and dose with EPO as needed (4) Hypokalemia Current Visit: Yes Status: Acute Resume HD Magnesium and Phos levels pending Continue to monitor (5) Hyponatremia Current Visit: Yes Status: Chronic Resume HD Continue to monitor Patient seen and examined, plan discussed with and agreed upon with Dr. Richter (6) HTN (hypertension) Current Visit: No Status: Chronic Resume home medications Qualifiers: Hypertension type: essential hypertension Qualified Code(s): I10 - Essential (primary) hypertension History of Present Illness - Reason for Consult Consult date: 10/27/17 end stage renal disease Requesting physician: Selwyn Frey - Chief Complaint SOB - History of Present Illness Mr. Castro is a 52 yo male with a PMH of ERSD on HD MWF, CAD needing 3 vessel CABG, non-compliance to his fluid restriction, and is routinely hospitalized almost monthly for volume overload who presented c/o increased SOB, cough, N/V, and right flank pain. Patient reports last HD was Friday. He has a temporary HD cath in his left upper chest. Patient reports ongoing tobacco dependence and denies CP or leg edema. Past Med Surg Social Fam HX - Past Medical History Medical history: arthritis, CHF, COPD, coronary artery disease, dialysis, GERD, hyperlipidemia, hypertension, myocardial infarction, osteoporosis, peripheral artery disease, renal disease, other Psychiatric history: anxiety, depression, other - Past Surgical History Surgical History: non-contributory, vascular surgery, other - Social History Smoking Status: Current every day smoker Smokeless Tobacco Status: Yes Alcohol use: none Drug use: marijuana - Family History Mother Living Status: Hx Family Cardiac Disorders: Yes Father Adopted: No Living Status: Hx Family Cardiac Disorders: No Hx Family Respiratory Disorders: Yes Hx Family Cancer: Yes Hx Family GI Disorders: Yes Hx Family Endocrine Disorder: No Hx Family Neuromuscular Disorders: No Hx Family Neurologic Disorders: No Hx Family HEENT Disorders: No Hx Family Autoimmune Disorders: No Medications and Allergies Citalopram [CeleXA] 40 mg PO DAILY 10/02/15 [History] Fluticasone/Salmeterol [Advair 250-50 Diskus] 1 puff IH BID 10/02/15 [History] Furosemide [Lasix] 40 - 80 mg PO BID PRN 10/02/15 [History] Lidocaine Patch [Lidoderm 5% patch] 1 patch TP DAILY 10/02/15 [History] hydrOXYzine HCl [Hydroxyzine HCl] 25 mg PO TID 10/02/15 [History] Isosorbide MONOnitrate (24 HR) [Imdur] 30 mg PO DAILY #30 tab.er.24h 09/03/16 [ Rx] Ergocalciferol (VITAMIN D2) [Vitamin D2] 50,000 unit PO MO 11/03/16 [History] Lisinopril [Zestril] 10 mg PO DAILY 11/03/16 [History] Simvastatin [Zocor] 40 mg PO HS 11/03/16 [History] Tizanidine HCl [Zanaflex] 4 mg PO TID 11/03/16 [History] Ipratropium/Albuterol Sulfate [Combivent Respimat Inhal [place]] 1 puff IH QID 04/28 [History] Aspirin 81 mg PO DAILY #30 tab.chew 11/24/16 [Rx] Calcium Acetate [Phos-LO] 1,334 mg PO TIDWM 05/08/17 [History] Tramadol HCl [Ultram] 50 mg PO TID PRN 05/08/17 [History] Ipratropium/Albuterol Neb [Duoneb] 3 ml IH Q4HR #90 vial.neb 07/25/17 [Rx] Carvedilol 12.5 mg PO BID 07/30/17 [History] Gabapentin [Neurontin] 600 mg PO BID 08/24/17 [History] Potassium Chloride [K-Tab ER] 20 meq PO DAILY 10/18/17 [History] Sertraline [Zoloft] 50 mg PO DAILY 10/18/17 [History] Albuterol Sulfate [Proair Hfa] 2 puff IH Q4H PRN 30 Days hfa.aer.ad 10/21/17 [ Rx] Silvasorb 1 appl TP DAILY tube 10/21/17 [Rx] prednisoLONE [Prelone] 40 mg PO DAILY 5 Days udc 10/21/17 [Rx] Ondansetron HCl [Zofran] 4 mg PO BID 10/27/17 [History] Sevelamer [Renvela] 3 tab PO TIDWM 10/27/17 [History] Varenicline Tartrate [Chantix Continuing Months Pack] 1 tab PO BID 10/27/17 [ History] buPROPion HCl [Zyban] 150 mg PO BID 10/27/17 [History] 3 Allergy/AdvReac Type Severity Reaction Status Date / Time bee venom protein (honey bee) AdvReac Swelling Verified 06/30/17 04:08 of Lip/Tongue/Throat potassium AdvReac Vomiting Verified 06/30/17 04:08 prednisone AdvReac Nausea Verified 10/21/17 10:00 Review of Systems Constitutional: fever(s), lethargy, weakness, no chills Cardiovascular: dyspnea, orthopnea, no chest pain, no leg edema, no pedal edema Respiratory: cough, dyspnea Gastrointestinal: constipation, nausea, vomiting, no abdominal pain Genitourinary Male: no dysuria, no urinary frequency, no urinary urgency Musculoskeletal: no numbness, no tingling Integumentary: lesions (LLE, chronic) Neurological: weakness, no numbness, no tingling Exam - Vital Signs Vital signs: Initial Vital Signs Temp Pulse Resp BP Pulse Ox 97.7 F 101 28 170/95 94 10/27/17 04:11 10/27/17 04:11 10/27/17 04:11 10/27/17 04:11 10/27/17 04:11 - General Appearance General appearance: well-developed, well-nourished, obese EENT: PERRL, mucous membranes moist Neck: no JVD, supple Respiratory: rales (bilaterally) Cardiology: holosystolic murmur, no edema, regular rate, regular rhythm - Dialysis Access Dialysis Vascular Access: Venous Catheter Gastrointestinal: normoactive bowel sounds, no tenderness, no guarding, no organomegaly, no masses Integumentary: no rash, warm and dry, skin tear (LLE) Neurologic: no focal deficit, alert and oriented x3, CN 3-12 intact Musculoskeletal: no deformities Psychiatric: mood/affect appropriate Results - Lab Results 10/27/17 05:16 10/27/17 04:34 Most recent lab results Calcium 7.7 mg/dL (8.6-10.3) L 10/27/17 04:34 Consult Discharge Plan - Plan Referrals: Nallely Hanna, DIRECTOR SKILLS [Primary Care Provider] -
[2017-10-27] MEDS: Ipratropium/Albuterol Neb 3 ML IH SCH ×4 (11:07→23:18)
[2017-10-27] MEDS ORDERED: Piperacillin/Tazobactam 3.375 GM/200 ML BAG IVPB SCH ×2 (12:00→18:00)
--- NOTE | 2017-10-27 13:46 | Electrocardiograph Report ---
[place] [id number] Test Date: 2017-10-27 Pat Name: Steve Castro Department: 104 Room: 2A16 Gender: M [employer] Associate: ARMIDA : 1965 Requested By: Kvng Phillips Order Number: [id number] Reading MD: Mckayla Beckett Measurements Intervals [place] Rate: 80 P: 24 NM: 115 QRS: 44 QRSD: 91 T: 11 QT: 380 QTc: 416 Interpretive Statements SINUS RHYTHM WITH SHORT NM INTERVAL WITH OCCASIONAL VENTRICULAR PREMATURE COMPLEXES POSSIBLE LEFT ATRIAL ENLARGEMENT [-0.1mV P WAVE IN V1/V2] Electronically Signed On 10-27-2017 13:44:51 EST by Mckayla Beckett
[2017-10-27] MEDS ORDERED: 0.9 % Sodium Chloride 2,000 ML ONE (14:04)
[2017-10-27] MEDS: BuPROPion SR (12 HR) 150 MG TABLET PO SCH ×2 (15:07→21:20)
[2017-10-27] MEDS: hydrOXYzine pamoate 25 MG CAPSULE PO SCH ×3 (15:07→21:20)
[2017-10-27] MEDS: Calcium Acetate 667 MG CAPSULE PO SCH ×2 (15:08→17:57)
[2017-10-27] MEDS: tiZANidine 4 MG TABLET PO SCH ×3 (15:08→21:20)
[2017-10-27] MEDS: Aspirin 81 MG TAB.CHEW PO SCH (15:08)
[2017-10-27] MEDS: Isosorbide MONOnitrate (24 HR) 30 MG TAB.ER.24H PO SCH (15:08)
[2017-10-27] MEDS: Gabapentin 300 MG CAPSULE PO SCH ×2 (15:08→21:20)
[2017-10-27] MEDS: MethylPREDNISolone 40 MG/ML VIAL IVP SCH ×2 (15:08→23:24)
[2017-10-27] MEDS: traMADol 50 MG TABLET PO PRN (18:04)
[2017-10-28] MEDS: Ipratropium/Albuterol Neb 3 ML IH SCH ×6 (03:19→23:33)
[2017-10-28 05:23] LABS: Hematocrit 27.7 % (37.5-50.1); Hemoglobin 8.8 g/dL (12.9-16.9); Immature Granulocytes % 0.5 % (0-4); Lymphocytes # 0.5 K/mcL (0.6-4.6); Lymphocytes % 6.5 %; Mean Corpuscular HGB Conc 31.8 g/dL (31.6-35.5); Mean Corpuscular Hemoglobin 26.2 pg (28.0-33.3); Mean Corpuscular Volume 82.4 fL (83.0-100.0); Mean Platelet Volume 10.1 fL (9.4-12.4); Monocytes # 0.3 K/mcL (0.0-1.3); Monocytes % 4.6 %; Neutrophils # 6.5 K/mcL (1.6-8.9); Platelet Count 239 K/mcL (140-400); Red Blood Count 3.36 M/mcL (4.19-5.50); Red Cell Distribution Width 18.5 % (11.5-14.5); Segmented Neutrophils % 88.4 %
[2017-10-28 05:28] LABS: INR 1.1; Prothrombin Time 12.2 Seconds (9.4-12.1)
[2017-10-28 05:30] LABS: Albumin 3.2 g/dL (3.5-5.7); Albumin/Globulin Ratio 1.3 (1.1-2.2); Bilirubin,Total 0.5 mg/dL (0.3-1.0); Calcium 8.3 mg/dL (8.6-10.3); Globulin 2.4 g/dL (2.4-3.5); Magnesium 1.7 mg/dL (1.6-2.6); Potassium 4.5 mEq/L (3.5-5.1); Total Protein 5.6 g/dL (6.4-8.9)
[2017-10-28 05:31] LABS: Activated Partial Thrombo Time 28.4 Seconds (26.0-36.0)
[2017-10-28] MEDS: traMADol 50 MG TABLET PO PRN ×2 (05:49→20:21)
[2017-10-28] MEDS ORDERED: Piperacillin/Tazobactam 3.375 GM/200 ML BAG IVPB SCH (06:00)
--- NOTE | 2017-10-28 07:26 | Nephrology Progress Note ---
Date of Encounter: 10/28/17 Time of Encounter: 07:25 - Assessment and Plan (1) ESRD (end stage renal disease) on dialysis Current Visit: Yes Status: Chronic Decreased volume overload s/p UF yesterday, continue UF today Resume HD as scheduled MWF Patient has a temporary HD cath in his left upper chest. Patient has been advised to discontinue ongoing tobacco dependence before proceeding with 3 vessel CABG and dialysis shunt placement Fluid restriction < 1 liter per day (2) Fluid overload Current Visit: Yes Status: Acute Repeat CXR reveals stable pulmonary vascular congestion with an associated right pleural effusion with right basilar atelectasis. Superimposed pneumonia cannot be excluded. Echo 05/14/17 revealed EF 50%, moderate MR Strict I/Os advised Pt counselled on adherence to fluid restriction Qualifiers: Hypervolemia type: other Qualified Code(s): E87.79 - Other fluid overload (3) Anemia in ESRD (end-stage renal disease) Current Visit: No Status: Chronic Hgb 8.8, likely due to CKD, will monitor and dose with EPO as needed (4) Hypokalemia Current Visit: Yes Status: Acute Resolved Continue to monitor (5) Hyponatremia Current Visit: Yes Status: Chronic Improved Continue to monitor (6) Hypophosphatemia Current Visit: Yes Status: Chronic Continue Phos supplementation (7) HTN (hypertension) Current Visit: No Status: Chronic Resume home medications Qualifiers: Hypertension type: essential hypertension Qualified Code(s): I10 - Essential (primary) hypertension Subjective Principal diagnosis: ESRD Interval history: Patient seen and examined during UF this AM. Patient reports decreased edema and is inquiring about discharge plan. He has no acute complaints at this time and reports compliance with fluid restrictions. Objective - Vital Signs Vital signs: Vital Signs Temp Pulse Resp BP Pulse Ox 10/28/17 06:44 98.3 F 109 20 187/99 95 10/28/17 03:35 97.9 F 80 16 148/75 93 10/28/17 03:20 14 96 10/27/17 23:35 97.4 F L 75 17 134/65 94 10/27/17 23:19 14 100 10/27/17 20:29 98.1 F 79 17 166/94 97 10/27/17 20:00 14 98 10/27/17 15:41 16 94 10/27/17 14:30 88 16 166/82 94 10/27/17 13:55 97.3 F L 20 190/86 10/27/17 13:45 169/80 10/27/17 13:30 188/92 10/27/17 13:15 185/93 10/27/17 13:00 183/81 10/27/17 12:45 200/90 10/27/17 12:30 187/87 10/27/17 12:15 195/94 10/27/17 12:00 200/107 10/27/17 11:45 189/96 10/27/17 11:30 196/107 10/27/17 11:15 196/102 10/27/17 11:00 196/102 10/27/17 10:45 186/96 10/27/17 10:30 188/79 10/27/17 10:15 97.4 F L 20 176/95 Intake and Output 10/27/17 10/27/17 10/28/17 15:59 23:59 07:59 Intake Total 600 / 600 0 / 0 Output Total 4600 / 4600 Balance -4000 / -4000 0 / 0 Intake: Oral 0 / 0 0 / 0 Intake, Rinseback and Flushes 600 / 600 Output: Urine 0 / 0 Total Dialysis (HD) Output 4600 / 4600 Other: Weight 91 kg Blood Glucose* 281 123 Hemodialysis Net Fluid Removed 4000 (mL) Patient Weight 10/28/17 23:59 Weight 91 kg - General Appearance General appearance: Present: well-developed, well-nourished, appears started age EENT: Present: PERRL, mucous membranes moist Neck: Present: no JVD, supple Respiratory: Present: wheezing (mild expiratory) Additional Comments: good air movement bilaterally Cardiology: Present: holosystolic murmur, no edema, regular rate, regular rhythm Dialysis Vascular Access: Venous Catheter (left upper cchest) Gastrointestinal: Present: normoactive bowel sounds, no tenderness, no guarding , no organomegaly Integumentary: Present: no rash, warm and dry, chronic venous stasis Neurologic: Present: no focal deficit, alert and oriented x3 Musculoskeletal: Present: no deformities, no erythema Psychiatric: Present: mood/affect appropriate - Lab 10/28/17 04:43 10/28/17 04:43 Most recent lab results Calcium 8.3 mg/dL (8.6-10.3) L 10/28/17 04:43 Phosphorus 2.0 mg/dL (2.7-4.5) L 10/28/17 04:43 Magnesium 1.7 mg/dL (1.6-2.6) 10/28/17 04:43 Consult Discharge Plan - Plan Referrals: Nallely Hanna, MEKHI [Primary Care Provider] -
[2017-10-28] MEDS ORDERED: *HR* Heparin 10,000 UNIT/10 ML VIAL IV PRN (08:01)
[2017-10-28] MEDS ORDERED: 0.9 % Sodium Chloride 250 ML IVC PRN (08:01)
[2017-10-28] MEDS: MethylPREDNISolone 40 MG/ML VIAL IVP SCH (08:06)
[2017-10-28] MEDS: BuPROPion SR (12 HR) 150 MG TABLET PO SCH ×2 (08:06→20:20)
[2017-10-28] MEDS: hydrOXYzine pamoate 25 MG CAPSULE PO SCH ×3 (08:07→20:20)
[2017-10-28] MEDS: Gabapentin 300 MG CAPSULE PO SCH (08:07)
[2017-10-28] MEDS: Isosorbide MONOnitrate (24 HR) 30 MG TAB.ER.24H PO SCH (08:07)
[2017-10-28] MEDS: Aspirin 81 MG TAB.CHEW PO SCH (08:07)
[2017-10-28] MEDS: tiZANidine 4 MG TABLET PO SCH ×3 (08:07→20:20)
[2017-10-28] MEDS: Calcium Acetate 667 MG CAPSULE PO SCH (08:08)
[2017-10-28] MEDS ORDERED: 0.9 % Sodium Chloride 2,000 ML ONE (10:53)
[2017-10-28] MEDS ORDERED: Silvasorb 44.4 ML TUBE TP SCH (12:11)
[2017-10-28] MEDS: Renal Vitamin 1 MG CAPSULE PO SCH (12:23)
--- NOTE | 2017-10-28 12:57 | Internal Med Progress Note ---
Date of Encounter: 10/28/17 Time of Encounter: 12:55 - Assessment and plan (1) Pulmonary edema Current Visit: Yes Status: Acute Assessment and plan: Patient was admitted with acute onset of dyspnea and pulmonary edema, possibly with some chronic complement due to underlying end-stage renal disease. Patient is well-known to our service due to multiple recurrent hospitalizations with similar complaints. He is noted to be noncompliant with fluid restriction at home, often having volume overload and pulmonary edema after weekends. Nephrology consulted and patient is receiving hemodialysis today. Qualifiers: Chronicity: chronic Qualified Code(s): J81.1 - Chronic pulmonary edema (2) ESRD (end stage renal disease) on dialysis Current Visit: Yes Status: Chronic Assessment and plan: Nephrology is on board, plan for hemodialysis today. Repeat hemodialysis/ ultrafiltration tomorrow per his usual schedule. Continue phosphate binders and multivitamins. (3) Noncompliance Current Visit: Yes Status: Chronic Assessment and plan: Patient reports he understands fluid restriction but admits to drinking 3.5-4 L of fluids or more per day. Compliance reinforced. (4) Depression Current Visit: Yes Status: Chronic Qualifiers: Depression Type: unspecified Qualified Code(s): F32.9 - Major depressive disorder, single episode, unspecified (5) Anxiety Current Visit: Yes Status: Chronic (6) CHF (congestive heart failure) Current Visit: Yes Status: Chronic Assessment and plan: Continue beta harley and telemetry monitoring. Qualifiers: Congestive heart failure type: diastolic Congestive heart failure chronicity: chronic Qualified Code(s): I50.32 - Chronic diastolic (congestive ) heart failure (7) COPD (chronic obstructive pulmonary disease) Current Visit: Yes Status: Chronic Assessment and plan: Does not seem to be in acute exacerbation. No clear evidence of pneumonia. Blood cultures remain negative. Rapid influenza antigen testing negative. We will discontinue antibiotics and steroids at this time. Continue when necessary bronchodilators and supplemental oxygen. Noted to be on home oxygen. Qualifiers: COPD type: unspecified COPD Qualified Code(s): J44.9 - Chronic obstructive pulmonary disease, unspecified (8) Anemia in chronic kidney disease Current Visit: Yes Status: Chronic Qualifiers: Chronic kidney disease stage: on chronic dialysis Qualified Code(s): N18.6 - End stage renal disease; D63.1 - Anemia in chronic kidney disease; Z99.2 - Dependence on renal dialysis (9) CAD (coronary artery disease) Current Visit: Yes Status: Chronic Qualifiers: Coronary Disease-Associated Artery/Lesion type: [place] artery [place] vs. transplanted heart: [place] heart Associated angina: without angina Qualified Code(s): I25.10 - Atherosclerotic heart disease of [place] coronary artery without angina pectoris (10) Hypertension Current Visit: Yes Status: Chronic Assessment and plan: Blood pressure noted to be elevated this morning, prior to hemodialysis. Currently improving, continue home medications. Qualifiers: Hypertension type: essential hypertension Qualified Code(s): I10 - Essential (primary) hypertension (11) DEE (obstructive sleep apnea) Current Visit: Yes Status: Chronic (12) Tobacco abuse Current Visit: Yes Status: Chronic - Subjective Interval history: Feels better after HD session; no chest pain, dyspnea, palpitations, cough, fever/chills; tolerates oral diet; - Constitutional Vitals: Temp Pulse Resp BP Pulse Ox 97.6 F 67 15 121/71 98 10/28/17 11:53 10/28/17 11:53 10/28/17 11:53 10/28/17 12:23 10/28/17 11:53 General appearance: Present: A&O X 3, pleasant, answers questions appropriately - Respiratory Respiratory exam: Present: CTAB (coarse breath sounds B/L). Absent: accessory muscle use, rales, rhonchi, wheezes - Cardiovascular Cardiovascular exam: Present: RRR, +S1, +S2. Absent: diastolic murmur, gallop, rubs, systolic murmur - GI/Abdominal GI/Abdominal exam: Present: normal bowel sounds, soft, no peritoneal signs. Absent: distended, tenderness - Extremities Exam Extremities exam: Present: pedal edema, warm, radial pulses palpable and symmetrical. Absent: calf tenderness, cyanotic Internal Medicine: Result - Labs CBC & Chem 7: 10/28/17 04:43 10/28/17 04:43 Labs: Short CBC 10/28/17 Range/Units 04:43 WBC 7.4 (4.3-11.1) K/mcL Hgb 8.8 L (12.9-16.9) g/dL Hct 27.7 L (37.5-50.1) % Plt Count 239 (140-400) K/mcL Neutrophils # 6.5 (1.6-8.9) K/mcL BMP 10/28/17 04:43 Sodium 131 L Potassium 4.5 Chloride 90 L Carbon Dioxide 27 BUN 22 H Creatinine 3.12 H Glucose 158 H Calcium 8.3 L Liver Function 10/28/17 Range/Units 04:43 Total Bilirubin 0.5 (0.3-1.0) mg/dL AST 7 L (13-39) Units/L ALT 4 L (7-52) Units/L Alkaline Phosphatase 86 (34-104) Units/L Albumin 3.2 L (3.5-5.7) g/dL - ABG Interpretation ABG results: PT/INR, D-dimer PT 12.2 Seconds (9.4-12.1) H 10/28/17 04:43 - Impressions Impressions Chest X-Ray 10/28/17 04:00 IMPRESSION: 1. Stable pulmonary vascular congestion with an associated right pleural effusion with right basilar atelectasis. Superimposed pneumonia cannot be excluded. D/ / Manjinder Sandhu MD / Manjinder Sandhu MD Interpreting Provider: Manjinder Sandhu MD Consult Discharge Plan - Plan Referrals: Nallely Hanna, H[employer] OFFICE ASSISTANT [Primary Care Provider] - (web request 10/28/2017)
[2017-10-28] MEDS: Gabapentin 100 MG CAPSULE PO SCH ×2 (15:57→20:20)
[2017-10-28] MEDS: *HR* Heparin 5,000 UNIT/ML VIAL SQ SCH (17:01)
[2017-10-28] MEDS ORDERED: Gabapentin 300 MG CAPSULE PO SCH (21:00)
[2017-10-29] MEDS: Ipratropium/Albuterol Neb 3 ML IH SCH ×3 (04:17→11:23)
[2017-10-29] MEDS: *HR* Heparin 5,000 UNIT/ML VIAL SQ SCH (05:12)
[2017-10-29] MEDS: traMADol 50 MG TABLET PO PRN (05:16)
[2017-10-29] MEDS ORDERED: Levofloxacin 500 MG/100 ML 500 MG/100 ML BAG IVPB SCH (06:00)
--- NOTE | 2017-10-29 07:10 | Nephrology Progress Note ---
Date of Encounter: 10/29/17 Time of Encounter: 07:10 - Assessment and Plan (1) ESRD (end stage renal disease) on dialysis Current Visit: Yes Status: Chronic Decreased volume overload s/p UF yesterday, continue HD as scheduled MWF Patient has a temporary HD cath in his left upper chest. Patient has been advised to discontinue ongoing tobacco dependence before proceeding with 3 vessel CABG and dialysis shunt placement Fluid restriction < 1 liter per day (2) Fluid overload Current Visit: Yes Status: Acute Repeat CXR reveals stable pulmonary vascular congestion with an associated right pleural effusion with right basilar atelectasis. Superimposed pneumonia cannot be excluded. Echo 05/14/17 revealed EF 50%, moderate MR Strict I/Os advised Pt counselled on adherence to fluid restriction Qualifiers: Qualified Code(s): E87.79 - Other fluid overload (3) Anemia in ESRD (end-stage renal disease) Current Visit: No Status: Chronic Hgb 8.8, likely due to CKD Aranesp given Monitor and dose with EPO as needed (4) Hypokalemia Current Visit: Yes Status: Acute Resolved Continue to monitor (5) Hyponatremia Current Visit: Yes Status: Chronic Improved Continue to monitor (6) Hypophosphatemia Current Visit: Yes Status: Chronic Resume phosphate binders upon discharge Continue multivitamins. (7) HTN (hypertension) Current Visit: No Status: Chronic Resume home medications Qualifiers: Qualified Code(s): I10 - Essential (primary) hypertension Subjective Principal diagnosis: ESRD Interval history: Patient seen and examined after eating breakfast. Patient reports decreased edema today and has no acute complaints at this time. Patient reports compliance with fluid restrictions. Anticipate discharge today following dialysis. Objective - Vital Signs Vital signs: Vital Signs Temp Pulse Resp BP Pulse Ox 10/29/17 04:18 20 98 10/29/17 03:29 98.5 F 83 16 162/82 95 10/28/17 23:56 98 F 72 17 163/87 99 10/28/17 23:35 16 98 10/28/17 20:12 97.8 F 73 17 142/82 98 10/28/17 20:02 20 98 10/28/17 15:50 18 98 10/28/17 15:33 97.6 F 78 17 158/82 94 10/28/17 12:23 121/71 10/28/17 11:53 97.6 F 67 15 121/71 98 10/28/17 11:05 97.4 F L 15 99/66 10/28/17 10:55 99/51 10/28/17 10:40 106/54 10/28/17 10:25 101/54 10/28/17 10:10 101/57 10/28/17 09:55 106/68 10/28/17 09:40 108/64 10/28/17 09:25 110/64 10/28/17 09:10 125/63 10/28/17 08:55 97.5 F L 17 113/76 Intake and Output 10/28/17 10/28/17 10/29/17 15:59 23:59 07:59 Intake Total 720 / 720 680 / 680 Output Total 4600 / 4600 100 / 100 Balance -3880 / -3880 580 / 580 Intake: IV Fluids 200 / 200 Zosyn Premix 3.375 GM/200 ML 3. 200 / 200 375 gm In 200 ml @ 50 mls/hr IVPB Q12HR [facility] Rx#:[id number] Oral 120 / 120 480 / 480 Intake, Rinseback and Flushes 600 / 600 Output: Urine 0 / 0 100 / 100 Total Dialysis (HD) Output 4600 / 4600 Other: Meal Lunch Percent of Meal Consumed 100% # Voids 1 # Bowel Movements 1 Weight 91 kg Blood Glucose* 144 144 Hemodialysis Net Fluid Removed 4000 (mL) Patient Weight 10/29/17 23:59 Weight 91 kg - General Appearance General appearance: Present: well-developed, well-nourished, obese EENT: Present: PERRL, mucous membranes moist Neck: Present: no JVD, supple Respiratory: Present: course breath sounds Additional Comments: equal breath sounds bilaterally Cardiology: Present: holosystolic murmur, regular rate, regular rhythm Dialysis Vascular Access: Venous Catheter Gastrointestinal: Present: normoactive bowel sounds, no tenderness, no guarding , no organomegaly Integumentary: Present: no rash, warm and dry, chronic venous stasis Neurologic: Present: no focal deficit, alert and oriented x3 Musculoskeletal: Present: no deformities, no erythema Psychiatric: Present: mood/affect appropriate - Lab 10/28/17 04:43 10/29/17 07:51 Most recent lab results Calcium 8.3 mg/dL (8.6-10.3) L 10/28/17 04:43 Phosphorus 2.0 mg/dL (2.7-4.5) L 10/28/17 04:43 Magnesium 1.7 mg/dL (1.6-2.6) 10/28/17 04:43 Consult Discharge Plan - Plan Referrals: Nallely Hanna, MEKHI [Primary Care Provider] - (web request 10/28/2017)
[2017-10-29] MEDS: hydrOXYzine pamoate 25 MG CAPSULE PO SCH ×2 (08:09→14:22)
[2017-10-29] MEDS: tiZANidine 4 MG TABLET PO SCH ×2 (08:09→14:22)
[2017-10-29] MEDS: Isosorbide MONOnitrate (24 HR) 30 MG TAB.ER.24H PO SCH (08:09)
[2017-10-29] MEDS: BuPROPion SR (12 HR) 150 MG TABLET PO SCH (08:10)
[2017-10-29] MEDS: Aspirin 81 MG TAB.CHEW PO SCH (08:10)
[2017-10-29] MEDS: Gabapentin 100 MG CAPSULE PO SCH ×2 (08:10→14:22)
[2017-10-29] MEDS: Renal Vitamin 1 MG CAPSULE PO SCH (08:10)
[2017-10-29 08:19] LABS: Calcium 8.3 mg/dL (8.6-10.3); Potassium 4.5 mEq/L (3.5-5.1)
--- NOTE | 2017-10-29 08:49 | Discharge Summary ---
Date of Encounter: 10/29/17 Time of Encounter: 08:46 - Discharge Diagnosis (1) Noncompliance Priority: Primary Status: Chronic (2) CHF (congestive heart failure) Priority: Secondary Status: Chronic Qualifiers: Congestive heart failure type: diastolic Congestive heart failure chronicity: chronic Qualified Code(s): I50.32 - Chronic diastolic (congestive ) heart failure (3) ESRD (end stage renal disease) on dialysis Priority: Primary Status: Chronic (4) Leukocytosis (leucocytosis) Priority: Primary Status: Acute Qualifiers: Leukocytosis type: unspecified Qualified Code(s): D72.829 - Elevated white blood cell count, unspecified (5) Anemia in chronic kidney disease Priority: Secondary Status: Chronic Qualifiers: Chronic kidney disease stage: on chronic dialysis Qualified Code(s): N18.6 - End stage renal disease; D63.1 - Anemia in chronic kidney disease; Z99.2 - Dependence on renal dialysis (6) Hypertension Priority: Secondary Status: Chronic Qualifiers: Hypertension type: essential hypertension Qualified Code(s): I10 - Essential (primary) hypertension (7) Chronic respiratory failure Priority: Secondary Status: Chronic Qualifiers: Respiratory failure complication: hypoxia Qualified Code(s): J96.11 - Chronic respiratory failure with hypoxia - Discharge Medications Home Medications: Citalopram [CeleXA] 40 mg PO DAILY 10/02/15 [History] Fluticasone/Salmeterol [Advair 250-50 Diskus] 1 puff IH BID 10/02/15 [History] Furosemide [Lasix] 40 - 80 mg PO BID PRN 10/02/15 [History] Lidocaine Patch [Lidoderm 5% patch] 1 patch TP DAILY 10/02/15 [History] hydrOXYzine HCl [Hydroxyzine HCl] 25 mg PO TID 10/02/15 [History] Isosorbide MONOnitrate (24 HR) [Imdur] 30 mg PO DAILY #30 tab.er.24h 09/03/16 [ Rx] Ergocalciferol (VITAMIN D2) [Vitamin D2] 50,000 unit PO MO 11/03/16 [History] Lisinopril [Zestril] 10 mg PO DAILY 11/03/16 [History] Simvastatin [Zocor] 40 mg PO HS 11/03/16 [History] Tizanidine HCl [Zanaflex] 4 mg PO TID 11/03/16 [History] Ipratropium/Albuterol Sulfate [Combivent Respimat Inhal [place]] 1 puff IH QID 04/28 [History] Aspirin 81 mg PO DAILY #30 tab.chew 11/24/16 [Rx] Calcium Acetate [Phos-LO] 1,334 mg PO TIDWM 05/08/17 [History] Tramadol HCl [Ultram] 50 mg PO TID PRN 05/08/17 [History] Ipratropium/Albuterol Neb [Duoneb] 3 ml IH Q4HR #90 vial.neb 07/25/17 [Rx] Carvedilol 12.5 mg PO BID 07/30/17 [History] Gabapentin [Neurontin] 600 mg PO BID 08/24/17 [History] Potassium Chloride [K-Tab ER] 20 meq PO DAILY 10/18/17 [History] Sertraline [Zoloft] 50 mg PO DAILY 10/18/17 [History] Albuterol Sulfate [Proair Hfa] 2 puff IH Q4H PRN 30 Days hfa.aer.ad 10/21/17 [ Rx] Silvasorb 1 appl TP DAILY tube 10/21/17 [Rx] prednisoLONE [Prelone] 40 mg PO DAILY 5 Days udc 10/21/17 [Rx] Ondansetron HCl [Zofran] 4 mg PO BID 10/27/17 [History] Sevelamer [Renvela] 3 tab PO TIDWM 10/27/17 [History] Varenicline Tartrate [Chantix Continuing Months Pack] 1 tab PO BID 10/27/17 [ History] buPROPion HCl [Zyban] 150 mg PO BID 10/27/17 [History] Allergies/Adverse Reactions: 3 Allergy/AdvReac Type Severity Reaction Status Date / Time bee venom protein (honey bee) AdvReac Swelling Verified 06/30/17 04:08 of Lip/Tongue/Throat potassium AdvReac Vomiting Verified 06/30/17 04:08 prednisone AdvReac Nausea Verified 10/21/17 10:00 Date of admission: 10/27/17 09:21 Primary care physician: Nallely Hanna CNP Consults: 10/27/17 09:30 Consult to Dialysis [CONS] ONCE 10/28/17 08:15 Consult to Dialysis [CONS] ONCE 10/28/17 14:36 Consult to Wound Care [CONS] Routine Reason for Consult: Pt has wound on left guillen Call Completed: No - Patient Status Disposition: Home, Self-Care Condition: Fair Overall status at discharge: patient is progressing back to baseline - Discharge Instructions Instructions: Heart Failure (DC) Follow Up With: Nallely Hanna CNP [Primary Care Provider] - 11/04/17 2:00 pm () - Diet and Activity Activity: increase activity as tolerated Diet: other (renal diet/ 1 L fluid restriciton/day) Hospital course: Mr. Castro is a 52 year old male with history of hypertension, COPD, coronary artery disease, end-stage renal disease, dialysis Friday/Friday/Friday, noncompliance with dialysis was discharged from the hospital less than a week ago prior to this admission. He is known to this facility extremely well as he comes frequently due to noncompliance with his dialysis. He presented this time to presented to emergency department with shortness of breath. He admitted noncompliance with diet. He showed signs of volume overload on x-ray. He was admitted to the hospitalist service with a consult to nephrology who dialyzed the patient on 2 consecutive days and he is back on schedule. He felt extremely well on 10/29/2017 and was discharged after dialysis. - Time Spent with Patient Total time spent providing and/or coordinating discharge services: Greater than 30 minutes - Constitutional Vitals: Temp Pulse Resp BP Pulse Ox 97.5 F L 86 16 185/98 99 10/29/17 07:26 10/29/17 07:26 10/29/17 07:31 10/29/17 07:26 10/29/17 08:15 General appearance: Present: A&O X 3, pleasant, answers questions appropriately Exam: GEN: NAD CVS: RRR. S1, S2, No m/r/g RESP: Diminished at the bases with bibasilar crackles ABD: Soft, NT, ND, +BS EXT: 1+ edema. 2+ DP. No rashes NEURO: Nonfocal
[2017-10-29] MEDS ORDERED: 0.9 % Sodium Chloride 250 ML IVC PRN (08:51)
[2017-10-29] MEDS ORDERED: *HR* Heparin 10,000 UNIT/10 ML VIAL IV PRN (08:51)
[2017-10-29 08:56] LABS: Hematocrit 29.6 % (37.5-50.1); Hemoglobin 9.2 g/dL (12.9-16.9); Mean Corpuscular HGB Conc 31.1 g/dL (31.6-35.5); Mean Corpuscular Hemoglobin 25.8 pg (28.0-33.3); Mean Corpuscular Volume 83.1 fL (83.0-100.0); Mean Platelet Volume 9.5 fL (9.4-12.4); Red Blood Count 3.56 M/mcL (4.19-5.50); Red Cell Distribution Width 18.6 % (11.5-14.5)
[2017-10-29] MEDS ORDERED: 0.9 % Sodium Chloride 1,000 ML PRIME SCH (09:00)
[2017-10-29] MEDS ORDERED: Albumin 25% 12.5gm/50mL 25.0 GM/100 ML IV.SOLN ONE (10:34)
[2017-10-29] MEDS ORDERED: Albumin 25% 25gram/100mL 25 GM/100 ML IV.SOLN IVPB ONE (10:40)
[2017-10-29] MEDS ORDERED: 0.9 % Sodium Chloride 2,000 ML ONE (12:39)
[2017-10-29 13:57] VITALS: BP 130/76
== END 2017-10-29 14:50 | disposition home or self-care (01) | DRG 425 ==
LOC: EMEROO 04:10 → 2ANU 04:10
PROVIDERS: ADMIT Internal Medicine Hematology & Oncology; ATTEND Internal Medicine

== ENCOUNTER 2017-11-05 06:05 | Observation (INO) ==
[2017-11-05] MEDS ORDERED: Ipratropium/Albuterol Neb 3 ML IH ONE (06:17)
[2017-11-05] MEDS ORDERED: methylPREDNISolone 125 MG/2 ML VIAL IVP ONE (06:17)
[2017-11-05] MEDS ORDERED: Nitroglycerin 1 INCH/GM PACKET TP ONE (06:18)
[2017-11-05] MEDS ORDERED: methylPREDNISolone 125 MG/2 ML VIAL ONE (06:21)
--- NOTE | 2017-11-05 06:21 | Emergency Department Note ---
Disposition Clinical Impression: COPD exacerbation Dyspnea Qualifiers: Dyspnea type: unspecified Qualified Code(s): R06.00 - Dyspnea, unspecified Fluid overload Qualifiers: Hypervolemia type: other Qualified Code(s): E87.79 - Other fluid overload Disposition: Still a Patient Condition: Undetermined Referrals: Nallely Hanna CNP [Partnered Physician] - Forms: ED Satisfaction Letter General Adult HPI - General Chief complaint: ED Shortness of Breath/Dyspnea Stated complaint: ANNETTA Time Seen by Provider: 11/05/17 06:15 Source: patient, EMS Limitations: no limitations Nursing Notes Reviewed: Yes Vital Signs Reviewed: Yes - History of Present Illness HPI Narrative: 52 y/o male w/ PMH of COPD and ESRD. He has dialysis M/W/F. He is a patient of Dr Juvencio wheeler. He also reports CAD but no recent stents/caths. He reports waking up with worsening dyspnea and body swelling. He admits to going to dialysis on Friday and is due today. No chest pain. Cough is present. No fever. Mild sputum production. No abdominal pain. No n/v/d/c. Pain Scale: 0 Improves with: nothing Worsens with: other (exertion) Associated symptoms: Reports: denies other symptoms Treatments Prior to Arrival: none - Related Data Home Medications Medication Instructions Recorded Confirmed Citalopram [CeleXA] 40 mg PO DAILY 10/02/15 10/27/17 Fluticasone/Salmeterol [Advair 1 puff IH BID 10/02/15 10/27/17 250-50 Diskus] Furosemide [Lasix] 40 - 80 mg PO BID PRN 10/02/15 10/27/17 Lidocaine Patch [Lidoderm 5% patch] 1 patch TP DAILY 10/02/15 10/27/17 hydrOXYzine HCl [Hydroxyzine HCl] 25 mg PO TID 10/02/15 10/27/17 Ergocalciferol (VITAMIN D2) 50,000 unit PO MO 11/03/16 10/27/17 [Vitamin D2] Lisinopril [Zestril] 10 mg PO DAILY 11/03/16 10/27/17 Simvastatin [Zocor] 40 mg PO HS 11/03/16 10/27/17 Tizanidine HCl [Zanaflex] 4 mg PO TID 11/03/16 10/27/17 Ipratropium/Albuterol Sulfate 1 puff IH QID 11/19/16 10/27/17 [Combivent Respimat Inhal [place]] Calcium Acetate [Phos-LO] 1,334 mg PO TIDWM 05/08/17 10/27/17 Tramadol HCl [Ultram] 50 mg PO TID PRN 05/08/17 10/27/17 Carvedilol 12.5 mg PO BID 07/30/17 10/27/17 Gabapentin [Neurontin] 600 mg PO BID 08/24/17 10/27/17 Potassium Chloride [K-Tab ER] 20 meq PO DAILY 10/18/17 10/27/17 Sertraline [Zoloft] 50 mg PO DAILY 10/18/17 10/27/17 Ondansetron HCl [Zofran] 4 mg PO BID 10/27/17 10/27/17 Sevelamer [Renvela] 3 tab PO TIDWM 10/27/17 10/27/17 Varenicline Tartrate [Chantix 1 tab PO BID 10/27/17 10/27/17 Continuing Months Pack] buPROPion HCl [Zyban] 150 mg PO BID 10/27/17 10/27/17 Previous Rx's Medication Instructions Recorded Isosorbide MONOnitrate (24 HR) 30 mg PO DAILY #30 tab.er.24h 09/03/16 [Imdur] Aspirin 81 mg PO DAILY #30 tab.chew 11/24/16 Ipratropium/Albuterol Neb [Duoneb] 3 ml IH Q4HR #90 vial.neb 07/25/17 Albuterol Sulfate [Proair Hfa] 2 puff IH Q4H PRN 30 Days 10/21/17 hfa.aer.ad Silvasorb 1 appl TP DAILY tube 10/21/17 prednisoLONE [Prelone] 40 mg PO DAILY 5 Days udc 10/21/17 Allergies Allergy/AdvReac Type Severity Reaction Status Date / Time bee venom protein (honey bee) AdvReac Swelling Verified 11/05/17 06:11 of Lip/Tongue/Throat potassium AdvReac Vomiting Verified 11/05/17 06:11 prednisone AdvReac Nausea Verified 11/05/17 06:11 All systems ED: reviewed and negative except as stated. Constitutional: Denies: fever ENT ED: Denies: throat pain Cardiovascular: Denies: chest pain Respiratory: Reports: cough, dyspnea Gastrointestinal: Denies: abdominal pain, nausea, vomiting, diarrhea Integumentary: Denies: rash Endocrine: Reports: fatigue Past Medical History - Past Medical History Medical history: Reports: arthritis, CHF, COPD, coronary artery disease, dialysis, GERD, hyperlipidemia, hypertension, myocardial infarction, osteoporosis, peripheral artery disease, renal disease, other Surgical history: Reports: non-contributory, vascular surgery, other Psychiatric history: Reports: anxiety, depression, other - Social History Smoking Status: Current every day smoker Smokeless Tobacco Status: Yes Alcohol use: Reports: none Drug use: Reports: marijuana Physical Exam - General Limitations: no limitations General appearance: alert - Head Head exam: atraumatic - Eye Eye exam: Present: normal appearance, PERRL - ENT ENT exam: other (periorbital edema, no erythema or warmth) - Neck Neck exam: Present: normal inspection - Chest Chest inspection: Present: normal inspection - Respiratory Respiratory exam: Present: other (decreased breath sounds and expiratory wheezes ) - Cardiovascular Cardiovascular exam: Present: regular rate, normal rhythm - Abdominal Exam Abdominal exam: Present: soft, Non-Tender - Extremities Exam Extremities exam: Present: normal inspection - Neurological Exam Neurological exam: Present: alert, oriented X3 - Psychiatric Psychiatric exam: Present: normal affect, normal mood - Skin Skin exam: Present: warm, dry Course Course Narrative: This patient has been signed out to the day team to follow up on labwork and imaging and make final disposition. Vital Signs Temperature 98.4 F 11/05/17 06:12 Pulse Rate 109 11/05/17 06:12 Respiratory Rate 24 11/05/17 06:12 Blood Pressure 192/115 11/05/17 06:12 O2 Sat by Pulse Oximetry 93 11/05/17 06:12 Temperature 98.4 F 11/05/17 06:12 Pulse Rate 95 11/05/17 06:31 Respiratory Rate 20 11/05/17 06:31 Blood Pressure 169/97 11/05/17 06:31 O2 Sat by Pulse Oximetry 100 11/05/17 06:31 Oxygen Delivery Oxygen Delivery Room Air Medical Decision Making - Medical Records Medical records reviewed: Yes I reviewed the patient's medical records. - Lab Data Lab results reviewed: Yes I reviewed the patient's lab results. Result diagrams: 11/05/17 06:12 Lab Results 11/05/17 Range/Units 06:12 WBC 11.0 (4.3-11.1) K/mcL RBC 4.01 L (4.19-5.50) M/mcL Hgb 10.2 L (12.9-16.9) g/dL Hct 33.8 L (37.5-50.1) % MCV 84.3 (83.0-100.0) fL MCH 25.4 L (28.0-33.3) pg MCHC 30.2 L (31.6-35.5) g/dL RDW 18.4 H (11.5-14.5) % Plt Count 261 (140-400) K/mcL MPV 8.9 L (9.4-12.4) fL Immature Gran % 0.6 (0-4) % Seg Neutrophils % 60.4 % Lymphocytes % 23.4 % Monocytes % 9.8 % Eosinophils % 5.6 % Basophils % 0.2 % Neutrophils # 6.6 (1.6-8.9) K/mcL Lymphocytes # 2.6 (0.6-4.6) K/mcL Monocytes # 1.1 (0.0-1.3) K/mcL Eosinophils # 0.6 (0.0-0.6) K/mcL Basophils # 0.0 (0.0-0.2) K/mcL - Radiology Data Radiology results reviewed: Yes I reviewed the patient's radiology results. - EKG Data EKG #1 EKG attestation: Yes I reviewed and interpreted this EKG. EKG shows normal: sinus rhythm Rate: tachycardia Rhythm: NSR [place]/QRS: normal Interpretation: no acute changes Attestation Statement - Attestation Attestation: I, Alex Chaudhary, examined this patient and my medical decision-making was reviewed with the [employer]/PA/Advanced Practice Nurse/Resident Physician. I agree with the documented findings, disposition and treatment plan as described except to the extent set forth below. 52-year-old male presents emergency Department with concerns of increased difficulty in breathing. Patient has a long history of dyspnea which is secondary to COPD and CHF exacerbations. Patient states he has increased swelling in his face and extremities secondary to fluid overload. He has dialysis, Friday. Patient denies recent changes in his medications. Patient also has a history of COPD and has wheezing on his physical exam. At the time of the enema shift patient is pending laboratory evaluation, imaging, and reevaluation and disposition. Patient care will be transferred to Dr. Wayne pending further care.
[2017-11-05] MEDS ORDERED: Nitroglycerin 1 INCH/GM PACKET ONE (06:22)
[2017-11-05 06:27] LABS: Basophils % 0.2 %; Eosinophils # 0.6 K/mcL (0.0-0.6); Eosinophils % 5.6 %; Hematocrit 33.8 % (37.5-50.1); Hemoglobin 10.2 g/dL (12.9-16.9); Immature Granulocytes % 0.6 % (0-4); Lymphocytes # 2.6 K/mcL (0.6-4.6); Lymphocytes % 23.4 %; Mean Corpuscular HGB Conc 30.2 g/dL (31.6-35.5); Mean Corpuscular Hemoglobin 25.4 pg (28.0-33.3); Mean Corpuscular Volume 84.3 fL (83.0-100.0); Mean Platelet Volume 8.9 fL (9.4-12.4); Monocytes # 1.1 K/mcL (0.0-1.3); Monocytes % 9.8 %; Neutrophils # 6.6 K/mcL (1.6-8.9); Platelet Count 261 K/mcL (140-400); Red Blood Count 4.01 M/mcL (4.19-5.50); Red Cell Distribution Width 18.4 % (11.5-14.5); Segmented Neutrophils % 60.4 %
[2017-11-05 06:52] LABS: Calcium 8.7 mg/dL (8.6-10.3); Potassium 3.9 mEq/L (3.5-5.1)
[2017-11-05] MEDS ORDERED: Aspirin 81 MG TAB.CHEW PO ONE (07:32)
--- NOTE | 2017-11-05 07:36 | Emergency Department Note ---
Disposition Clinical Impression: COPD exacerbation Dyspnea Qualifiers: Dyspnea type: unspecified Qualified Code(s): R06.00 - Dyspnea, unspecified Fluid overload Qualifiers: Hypervolemia type: other Qualified Code(s): E87.79 - Other fluid overload Disposition: Admitted As Inpatient Condition: Fair Referrals: Nallely Hanna DISABILITY REPRESENTATIVE [Primary Care Provider] - Forms: ED Satisfaction Letter Time of Disposition: 07:39 General Adult HPI - General Chief complaint: ED Shortness of Breath/Dyspnea Stated complaint: ANNETTA Time Seen by Provider: 11/05/17 06:15 Source: patient, EMS Limitations: no limitations - History of Present Illness Pain Scale: 0 Improves with: nothing Worsens with: other (exertion) Associated symptoms: Reports: denies other symptoms Treatments Prior to Arrival: none - Related Data Home Medications Medication Instructions Recorded Confirmed Citalopram [CeleXA] 40 mg PO DAILY 10/02/15 11/05/17 Fluticasone/Salmeterol [Advair 1 puff IH BID 10/02/15 11/05/17 250-50 Diskus] Furosemide [Lasix] 40 - 80 mg PO BID PRN 10/02/15 11/05/17 Lidocaine Patch [Lidoderm 5% patch] 1 patch TP DAILY 10/02/15 11/05/17 hydrOXYzine HCl [Hydroxyzine HCl] 25 mg PO TID 10/02/15 11/05/17 Ergocalciferol (VITAMIN D2) 50,000 unit PO MO 11/03/16 11/05/17 [Vitamin D2] Lisinopril [Zestril] 10 mg PO DAILY 11/03/16 11/05/17 Simvastatin [Zocor] 40 mg PO HS 11/03/16 11/05/17 Tizanidine HCl [Zanaflex] 4 mg PO TID 11/03/16 11/05/17 Ipratropium/Albuterol Sulfate 1 puff IH QID 11/19/16 11/05/17 [Combivent Respimat Inhal [place]] Tramadol HCl [Ultram] 50 mg PO TID PRN 05/08/17 11/05/17 Carvedilol 12.5 mg PO BID 07/30/17 11/05/17 Gabapentin [Neurontin] 600 mg PO BID 08/24/17 11/05/17 Potassium Chloride [K-Tab ER] 20 meq PO DAILY 10/18/17 11/05/17 Sertraline [Zoloft] 50 mg PO DAILY 10/18/17 11/05/17 buPROPion HCl [Zyban] 150 mg PO BID 10/27/17 11/05/17 Previous Rx's Medication Instructions Recorded Isosorbide MONOnitrate (24 HR) 30 mg PO DAILY #30 tab.er.24h 09/03/16 [Imdur] Aspirin 81 mg PO DAILY #30 tab.chew 11/24/16 Ipratropium/Albuterol Neb [Duoneb] 3 ml IH Q4HR #90 vial.neb 07/25/17 Albuterol Sulfate [Proair Hfa] 2 puff IH Q4H PRN 30 Days 10/21/17 hfa.aer.ad Allergies Allergy/AdvReac Type Severity Reaction Status Date / Time bee venom protein (honey bee) AdvReac Swelling Verified 11/05/17 06:11 of Lip/Tongue/Throat potassium AdvReac Vomiting Verified 11/05/17 06:11 prednisone AdvReac Nausea Verified 11/05/17 06:11 Constitutional: Denies: fever ENT ED: Denies: throat pain Cardiovascular: Denies: chest pain Respiratory: Reports: cough, dyspnea Gastrointestinal: Denies: abdominal pain, nausea, vomiting, diarrhea Integumentary: Denies: rash Endocrine: Reports: fatigue Past Medical History - Past Medical History Medical history: Reports: arthritis, CHF, COPD, coronary artery disease, dialysis, GERD, hyperlipidemia, hypertension, myocardial infarction, osteoporosis, peripheral artery disease, renal disease, other Surgical history: Reports: non-contributory, vascular surgery, other Psychiatric history: Reports: anxiety, depression, other - Social History Smoking Status: Current every day smoker Smokeless Tobacco Status: Yes Alcohol use: Reports: none Drug use: Reports: marijuana Physical Exam - General Limitations: no limitations General appearance: alert Course Course Narrative: Patient seen and examined. Patient was signed out by the primary provider. Patient notes acute worsening of shortness of breath over the past several hours. Patient feels like this is related to his COPD. Patient is end-stage renal disease follows Dr. Acevedo was a Friday. Schedule for dialysis earlier today. - Reevaluation(s) Reevaluation #1: Patient states his breathing has improved from NEBS as well as aerosols. Time: 07:35 - Consultations Consultation #1: Spoke with nephrology and made them aware that the patient is going to be admitted Time: 07:53 Vital Signs Temperature 98.4 F 11/05/17 06:12 Pulse Rate 109 11/05/17 06:12 Respiratory Rate 24 11/05/17 06:12 Blood Pressure 192/115 11/05/17 06:12 O2 Sat by Pulse Oximetry 93 11/05/17 06:12 Temperature 98.4 F 11/05/17 06:12 Pulse Rate 105 11/05/17 08:20 Respiratory Rate 28 11/05/17 08:20 Blood Pressure 169/83 11/05/17 08:20 O2 Sat by Pulse Oximetry 90 11/05/17 08:20 Oxygen Delivery Oxygen Delivery Nasal Cannula Medical Decision Making - MDM Narrative Medical decision making narrative: 52-year-old male with a history of congestive heart failure, ESRD as well as COPD presents for evaluation of dyspnea. Noted acute onset this morning. States he had his HD as scheduled 2 days ago. Scheduled for today. Patient feels like this is more of a COPD exacerbation. Reports a cough. Reports continued use of his nebs as well as oxygen at home. Patient's treatment prior to arrival with steroids as well as triple nebs. Patient is to be breathing more comfortably. Patient was also given a nitroglycerin patch given his hypertension. Patient will be admitted to the hospital service for further evaluation monitoring given his COPD. Antibiotics were not initiated in the department as the patient will have dialysis this morning. Spoke with nephrology. Patient's troponin appears to be continually elevated and the patient's benign chest pain. chest x-ray shows stable exam. - Lab Data Lab results reviewed: Yes I reviewed the patient's lab results. Result diagrams: 11/05/17 06:12 11/05/17 06:12 Lab Results 11/05/17 11/05/17 11/05/17 Range/Units 06:12 06:12 06:12 WBC 11.0 (4.3-11.1) K/mcL RBC 4.01 L (4.19-5.50) M/mcL Hgb 10.2 L (12.9-16.9) g/dL Hct 33.8 L (37.5-50.1) % MCV 84.3 (83.0-100.0) fL MCH 25.4 L (28.0-33.3) pg MCHC 30.2 L (31.6-35.5) g/dL RDW 18.4 H (11.5-14.5) % Plt Count 261 (140-400) K/mcL MPV 8.9 L (9.4-12.4) fL Immature Gran % 0.6 (0-4) % Seg Neutrophils % 60.4 % Lymphocytes % 23.4 % Monocytes % 9.8 % Eosinophils % 5.6 % Basophils % 0.2 % Neutrophils # 6.6 (1.6-8.9) K/mcL Lymphocytes # 2.6 (0.6-4.6) K/mcL Monocytes # 1.1 (0.0-1.3) K/mcL Eosinophils # 0.6 (0.0-0.6) K/mcL Basophils # 0.0 (0.0-0.2) K/mcL Sodium 129 L (136-145) mEq/L Potassium 3.9 (3.5-5.1) mEq/L Chloride 93 L (98-107) mEq/L Carbon Dioxide 27 (23-29) mEq/L BUN 14 (6-20) mg/dL Creatinine 3.74 H (0.70-1.30) mg/dL Est GFR ( Amer) 21 L (> 60) Est GFR (Non-Af Amer) 17 L (> 60) BUN/Creatinine Ratio 4 L (6-26) Glucose 78 (70-105) mg/dL Calculated Osmolality 267 L (280-300) Lactic Acid (0.5-2.2) mmol/L Calcium 8.7 (8.6-10.3) mg/dL Troponin I 0.04 H* (< 0.04) ng/mL B-Natriuretic Peptide (Less than 100) pg/mL 11/05/17 11/05/17 Range/Units 06:12 06:12 WBC (4.3-11.1) K/mcL RBC (4.19-5.50) M/mcL Hgb (12.9-16.9) g/dL Hct (37.5-50.1) % MCV (83.0-100.0) fL MCH (28.0-33.3) pg MCHC (31.6-35.5) g/dL RDW (11.5-14.5) % Plt Count (140-400) K/mcL MPV (9.4-12.4) fL Immature Gran % (0-4) % Seg Neutrophils % % Lymphocytes % % Monocytes % % Eosinophils % % Basophils % % Neutrophils # (1.6-8.9) K/mcL Lymphocytes # (0.6-4.6) K/mcL Monocytes # (0.0-1.3) K/mcL Eosinophils # (0.0-0.6) K/mcL Basophils # (0.0-0.2) K/mcL Sodium (136-145) mEq/L Potassium (3.5-5.1) mEq/L Chloride (98-107) mEq/L Carbon Dioxide (23-29) mEq/L BUN (6-20) mg/dL Creatinine (0.70-1.30) mg/dL Est GFR ( Amer) (> 60) Est GFR (Non-Af Amer) (> 60) BUN/Creatinine Ratio (6-26) Glucose (70-105) mg/dL Calculated Osmolality (280-300) Lactic Acid 1.6 (0.5-2.2) mmol/L Calcium (8.6-10.3) mg/dL Troponin I (< 0.04) ng/mL B-Natriuretic Peptide 1462 H (Less than 100) pg/mL - Radiology Data Radiology results reviewed: Yes I reviewed the patient's radiology results. Chest X-Ray 11/05/17 06:17 IMPRESSION: Interstitial edema and right pleural effusion. Stable examination. D/ / Natanael Conn MD / Natanael Conn MD Interpreting Provider: Natanael Conn MD pril - Nasir Situation: Demographics Background: Presenting Complaint Assessment: Vital Signs, Course and respsone to treatment, Patient/Family Expectation Recommendation: Barrier(s) to disposition, Recommendation based on pending studies, treatments, or consults Nasir Report Given to: Dr. Jessica Espinoza Time: 08:51
[2017-11-05] MEDS ORDERED: 0.9 % Sodium Chloride 250 ML IVC PRN (08:48)
[2017-11-05] MEDS ORDERED: *HR* Heparin 10,000 UNIT/10 ML VIAL IV PRN (09:26)
[2017-11-05] MEDS ORDERED: 0.9 % Sodium Chloride 2,000 ML ONE (09:35)
[2017-11-05] MEDS ORDERED: *HR* OxyCODONE Immed Rel 5 MG TABLET PO PRN (10:24)
[2017-11-05] MEDS ORDERED: Naloxone 0.4 MG/ML INJ IVP PRN (10:24)
[2017-11-05] MEDS ORDERED: Acetaminophen 325 MG TABLET PO PRN (10:24)
[2017-11-05] MEDS ORDERED: traMADol 50 MG TABLET PO PRN (10:26)
[2017-11-05] MEDS ORDERED: Albuterol 2.5 MG/3 ML NEBULIZER IH PRN (10:29)
--- NOTE | 2017-11-05 10:57 | Internal Med History&Physical ---
Date of Encounter: 11/05/17 Time of Encounter: 10:54 Assessment and Plan (1) COPD exacerbation Current visit: Yes Status: Acute Continue duonebs, solumedrol, albuterol, add azithromycin, continue O2 at home dose (2) Fluid overload Current visit: Yes Status: Acute For HD today Qualifiers: Hypervolemia type: other Qualified Code(s): E87.79 - Other fluid overload (3) Anemia in ESRD (end-stage renal disease) Current visit: Yes Status: Chronic Hb at baseline (4) CAD (coronary artery disease) Current visit: Yes Status: Chronic Chronic, no chest pain, troponin chronically elevated, will cycle Qualifiers: Coronary Disease-Associated Artery/Lesion type: [place] artery [place] vs. transplanted heart: [place] heart Associated angina: without angina Qualified Code(s): I25.10 - Atherosclerotic heart disease of [place] coronary artery without angina pectoris (5) CHF (congestive heart failure) Current visit: Yes Status: Chronic Diastolic, chronic, resume home meds, including lasix Qualifiers: Congestive heart failure type: diastolic Congestive heart failure chronicity: chronic Qualified Code(s): I50.32 - Chronic diastolic (congestive ) heart failure (6) Chronic respiratory failure Current visit: Yes Status: Chronic continue O2 by nasal [place] at home dose Qualifiers: Respiratory failure complication: hypoxia Qualified Code(s): J96.11 - Chronic respiratory failure with hypoxia (7) ESRD (end stage renal disease) on dialysis Current visit: Yes Status: Chronic HD per renal (8) GERD (gastroesophageal reflux disease) Current visit: Yes Status: Chronic Continue home meds Qualifiers: Esophagitis presence: without esophagitis Qualified Code(s): K21.9 - Gastro -esophageal reflux disease without esophagitis (9) HTN (hypertension) Current visit: Yes Status: Chronic Uncontrolled, due to non-compliance Improving with use of home meds, continue same Continue to monitor Qualifiers: Hypertension type: essential hypertension Qualified Code(s): I10 - Essential (primary) hypertension (10) Hyperlipidemia Current visit: Yes Status: Chronic Chronic, continue home meds Qualifiers: Hyperlipidemia type: unspecified Qualified Code(s): E78.5 - Hyperlipidemia , unspecified (11) Leg wound, left Current visit: Yes Status: Chronic Chronic, clean, wound dressing per RN Qualifiers: Encounter type: subsequent encounter Qualified Code(s): S81.802D - Unspecified open wound, left lower leg, subsequent encounter (12) DEE (obstructive sleep apnea) Current visit: Yes Status: Chronic CPAP at bedtime Internal Medicine - H&P: HPI Chief complaint: Shortness of breath, Im building up fluids Admitted From: Home Plans for Post Hospital Care: Home History of present illness: Mr. Castro is a 52 year old male with ESRD, chronic respiratory failure on home oxygen, COPD, active tobacco and THC use, HTN, Anemia of chronic disease, DEE History of multiple admissions due to non-compliance with medications or diet He was recently discharged one week ago She presented to the emergency room with complains of cough and shortness of breath, he also states he thinks he's building up fluid as his face has been swelling. He has been compliant with HD and his most recent HD was on Friday, complete session He denies chest pain, no diaphoresis, shortness of breath started yesterday and was initially on exertion, now at rest, he has no pedal edema, he has no abdominal symptoms. He has a chronic leg ulcer that is being dressed and managed by wound care. On presentation to the ER, he was given solumedrol and duonebs and renal was consulted for routine HD. At time of review, patient remains short of breath, is requiring 4L of oxygen for saturation 95-98% and this is his home dose. He does have significant facial edema and puffiness and has bilateral crackles on the lung bases, he is in mild distress. Work up in the ER shows his CBC at baseline, Chem is at baseline, Troponin 0.04 which is also his baseline, BNP elevated 1400. CXR showed intersitial edema He will be admitted to observation for HD today and management of COPD exacerbation Past Med Surg Social Fam HX - Past Medical History Medical history: arthritis, CHF, COPD, coronary artery disease, dialysis, GERD, hyperlipidemia, hypertension, myocardial infarction, osteoporosis, peripheral artery disease, renal disease, other Psychiatric history: anxiety, depression, other - Past Surgical History Surgical History: non-contributory, vascular surgery, other - Social History Smoking Status: Current every day smoker Smokeless Tobacco Status: Yes Alcohol use: none Drug use: marijuana - Family History Mother Living Status: Hx Family Cardiac Disorders: Yes Father Adopted: No Living Status: Hx Family Cardiac Disorders: No Hx Family Respiratory Disorders: Yes Hx Family Cancer: Yes Hx Family GI Disorders: Yes Hx Family Endocrine Disorder: No Hx Family Neuromuscular Disorders: No Hx Family Neurologic Disorders: No Hx Family HEENT Disorders: No Hx Family Autoimmune Disorders: No Internal Medicine - H&P: Meds Citalopram [CeleXA] 40 mg PO DAILY 10/02/15 [History] Fluticasone/Salmeterol [Advair 250-50 Diskus] 1 puff IH BID 10/02/15 [History] Furosemide [Lasix] 40 - 80 mg PO BID PRN 10/02/15 [History] Lidocaine Patch [Lidoderm 5% patch] 1 patch TP DAILY 10/02/15 [History] hydrOXYzine HCl [Hydroxyzine HCl] 25 mg PO TID 10/02/15 [History] Isosorbide MONOnitrate (24 HR) [Imdur] 30 mg PO DAILY #30 tab.er.24h 09/03/16 [ Rx] Ergocalciferol (VITAMIN D2) [Vitamin D2] 50,000 unit PO MO 11/03/16 [History] Lisinopril [Zestril] 10 mg PO DAILY 11/03/16 [History] Simvastatin [Zocor] 40 mg PO HS 11/03/16 [History] Tizanidine HCl [Zanaflex] 4 mg PO TID 11/03/16 [History] Ipratropium/Albuterol Sulfate [Combivent Respimat Inhal [place]] 1 puff IH QID 04/28 [History] Aspirin 81 mg PO DAILY #30 tab.chew 11/24/16 [Rx] Tramadol HCl [Ultram] 50 mg PO TID PRN 05/08/17 [History] Ipratropium/Albuterol Neb [Duoneb] 3 ml IH Q4HR #90 vial.neb 07/25/17 [Rx] Carvedilol 12.5 mg PO BID 07/30/17 [History] Gabapentin [Neurontin] 600 mg PO BID 08/24/17 [History] Potassium Chloride [K-Tab ER] 20 meq PO DAILY 10/18/17 [History] Sertraline [Zoloft] 50 mg PO DAILY 10/18/17 [History] Albuterol Sulfate [Proair Hfa] 2 puff IH Q4H PRN 30 Days hfa.aer.ad 10/21/17 [ Rx] buPROPion HCl [Zyban] 150 mg PO BID 10/27/17 [History] 3 Allergy/AdvReac Type Severity Reaction Status Date / Time bee venom protein (honey bee) AdvReac Swelling Verified 11/05/17 06:11 of Lip/Tongue/Throat potassium AdvReac Vomiting Verified 11/05/17 06:11 prednisone AdvReac Nausea Verified 11/05/17 06:11 All Systems PM: A 10-system review of systems was performed and is negative for pertinent findings except as documented above in the HPI. - Constitutional Constitutional: no chills, no fever(s), no night sweats - EENT Eyes: no change in vision, no discharge, no pain, no photophobia Ears: no ear discharge, no ear pain, no tinnitus Nose, mouth and throat: no dysphagia, no nasal discharge, no neck pain, no sore throat Additional comments: facial swelling - Cardiovascular Cardiovascular ROS IM: dyspnea, dyspnea on exertion - Respiratory Respiratory: cough, dyspnea on exertion - Gastrointestinal Gastrointestinal: no abdominal pain, no diarrhea, no hematemesis, no hematochezia, no melena, no nausea, no vomiting - Musculoskeletal Musculoskeletal ROS IM: no numbness, no tingling - Integumentary Integumentary IM: no rash, no unusual bruising - Neurological Neurological ROS: no confusion, no convulsions, no focal weakness, no numbness, no tingling, no tremor(s) - Hematologic/Lymphatic Hematologic/Lymphatic: no easy bruising - Constitutional Vitals: Temp Pulse Resp BP Pulse Ox 98 F 98 20 164/91 94 11/05/17 09:35 11/05/17 09:35 11/05/17 09:35 11/05/17 09:35 11/05/17 09:35 VSS Gen: Awake, alert, oriented to time, place, and person. HEENT:Significant facial edema,moist oral mucosa, not cyanotic,not pale, sclerae anicteric. Neuro: AAOX3, no facial droop, no speech deficits, no focal deficits, moves all extremities equally. Chest wall: Left upper chest permacath, clean dressing. Respiratory.: Bilateral bibasilar crackles. Heart: S1-S2 only. Abdomen: Nontender, no palpable organ enlargement. Extremities: Left leg chronic wound looks clean and dry. No pedal edema. Internal Med - H&P Results - Labs CBC & Chem 7: 11/05/17 06:12 11/05/17 06:12
[2017-11-05] MEDS: Ipratropium/Albuterol Neb 3 ML IH SCH ×4 (12:05→23:18)
--- NOTE | 2017-11-05 18:30 | Nephrology Consult Note ---
Date of Encounter: 11/05/17 Time of Encounter: 14:15 Assessment and Plan (1) ESRD (end stage renal disease) on dialysis Current Visit: Yes Status: Chronic ESRD on HD M/W/F. Due for HD today (Friday), and I've placed dialysis orders. Typically he requires extra dialysis and /or UF treatments to challenge his dry weight, but on exam, he actually does not have increased peripheral edema. However, he does have increased facial and periorbital edema, which can be seen in Nephrotic Syndrome for example. I recommend ongoing glycemic control , low Na diet, fluid restriction and lipid control. Will reassess tomorrow for UF, but he may not need during this hospitalization. He was also seen while on HD, and so this note also serves as a dialysis note: his vitals were stable with BPs near 140s systolic while on dialysis, and he did not report any dialysis related cramping. Thank you for consulting the [facility] service. Will continue to follow with you. (2) COPD exacerbation Current Visit: Yes Status: Acute As per primary. (3) Hypervolemia Current Visit: Yes Status: Acute I counseled him for >50% of the 25 min encounter regarding the importance of dietary and fluid restrictions. Qualifiers: Hypervolemia type: other Qualified Code(s): E87.79 - Other fluid overload (4) Anemia in ESRD (end-stage renal disease) Current Visit: Yes Status: Chronic Anemia of CKD with a goal Hgb of 10-11. Will assess for TAISHA and/or IV iron as needed. (5) HTN (hypertension) Current Visit: Yes Status: Chronic Will monitor, but continue current care. Qualifiers: Hypertension type: essential hypertension Qualified Code(s): I10 - Essential (primary) hypertension History of Present Illness - Reason for Consult Consult date: 11/05/17 end stage renal disease Requesting physician: Marcus Lopez - Chief Complaint ESRD - History of Present Illness Steve Castro is a very pleasant 52 y/o Male with a pmh of ESRD on HD, frequent hospitalizations, COPD, chronic edema, noncompliance and et al who presented with worsening shortness of breath that developed over the last few days. He said that he attended his dialysis for a full treatment on Friday at the [facility] in [place], [place]. His primary kitchen help handyman is Dr. Acevedo. He dialyzes via a Permacath. He denied any recent problems with his dialysis catheter, and of note, he has had several prior episodes of bacteremia and required catheter exchanges in the past. He denied using NSAIDs. He affirmed dietary indiscretion in terms of fluid restriction and oral sodium intake. He reported dyspnea as described above and was dx with COPD, and nephrology was consulted for his ESRD. He says that he has not had much edema of late. Past Med Surg Social Fam HX - Past Medical History Medical history: arthritis, CHF, COPD, coronary artery disease, dialysis, GERD, hyperlipidemia, hypertension, myocardial infarction, osteoporosis, peripheral artery disease, renal disease, other Psychiatric history: anxiety, depression, other - Past Surgical History Surgical History: non-contributory, vascular surgery, other - Social History Smoking Status: Current every day smoker Smokeless Tobacco Status: Yes Alcohol use: none Drug use: marijuana - Family History Mother Living Status: Hx Family Cardiac Disorders: Yes Father Adopted: No Living Status: Hx Family Cardiac Disorders: No Hx Family Respiratory Disorders: Yes Hx Family Cancer: Yes Hx Family GI Disorders: Yes Hx Family Endocrine Disorder: No Hx Family Neuromuscular Disorders: No Hx Family Neurologic Disorders: No Hx Family HEENT Disorders: No Hx Family Autoimmune Disorders: No Medications and Allergies Fluticasone/Salmeterol [Advair 250-50 Diskus] 1 puff IH BID 10/02/15 [History] Furosemide [Lasix] 40 - 80 mg PO BID PRN 10/02/15 [History] Lidocaine Patch [Lidoderm 5% patch] 1 patch TP DAILY 10/02/15 [History] hydrOXYzine HCl [Hydroxyzine HCl] 25 mg PO TID 10/02/15 [History] Isosorbide MONOnitrate (24 HR) [Imdur] 30 mg PO DAILY #30 tab.er.24h 09/03/16 [ Rx] Ergocalciferol (VITAMIN D2) [Vitamin D2] 50,000 unit PO MO 11/03/16 [History] Lisinopril [Zestril] 10 mg PO DAILY 11/03/16 [History] Simvastatin [Zocor] 40 mg PO HS 11/03/16 [History] Tizanidine HCl [Zanaflex] 4 mg PO TID 11/03/16 [History] Ipratropium/Albuterol Sulfate [Combivent Respimat Inhal [place]] 1 puff IH QID 04/28 [History] Aspirin 81 mg PO DAILY #30 tab.chew 11/24/16 [Rx] Tramadol HCl [Ultram] 50 mg PO TID PRN 05/08/17 [History] Ipratropium/Albuterol Neb [Duoneb] 3 ml IH Q4HR #90 vial.neb 07/25/17 [Rx] Carvedilol 12.5 mg PO BID 07/30/17 [History] Gabapentin [Neurontin] 600 mg PO BID 08/24/17 [History] Potassium Chloride [K-Tab ER] 20 meq PO DAILY 10/18/17 [History] Sertraline [Zoloft] 50 mg PO DAILY 10/18/17 [History] Albuterol Sulfate [Proair Hfa] 2 puff IH Q4H PRN 30 Days hfa.aer.ad 10/21/17 [ Rx] buPROPion HCl [Zyban] 150 mg PO BID 10/27/17 [History] 3 Allergy/AdvReac Type Severity Reaction Status Date / Time bee venom protein (honey bee) AdvReac Swelling Verified 11/05/17 06:11 of Lip/Tongue/Throat potassium AdvReac Vomiting Verified 11/05/17 06:11 prednisone AdvReac Nausea Verified 11/05/17 06:11 Review of Systems All Systems: reviewed and no additional remarkable complaints except as stated Exam - Vital Signs Vital signs: Initial Vital Signs Temp Pulse Resp BP Pulse Ox 98.4 F 109 24 192/115 93 11/05/17 06:12 11/05/17 06:12 11/05/17 06:12 11/05/17 06:12 11/05/17 06:12 Vital Signs - Last 8 Hours Temp Pulse Resp BP Pulse Ox 11/05/17 16:42 98.0 F 103 17 157/95 98 11/05/17 15:45 155/82 11/05/17 15:30 154/92 11/05/17 15:15 119/83 11/05/17 15:00 166/95 11/05/17 14:45 171/88 11/05/17 14:30 176/94 11/05/17 14:15 159/88 01/24/18 14:00 167/91 11/05/17 13:45 170/98 11/05/17 13:30 188/105 11/05/17 13:15 173/105 11/05/17 13:00 181/103 11/05/17 12:45 173/105 11/05/17 12:30 185/100 11/05/17 12:15 97.7 F 18 176/90 11/05/17 12:05 20 93 11/05/17 11:28 97.9 F 100 16 187/99 96 11/05/17 11:16 94 Intake and Output 11/05/17 11/05/17 11/05/17 07:59 15:59 23:59 Intake Total 600 / 600 Output Total 4100 / 4100 Balance -3500 / -3500 Intake: Oral 0 / 0 Intake, Rinseback and Flushes 600 / 600 Output: Total Dialysis (HD) Output 4100 / 4100 Other: Blood Glucose* 192 Hemodialysis Net Fluid Removed 4100 (mL) - General Appearance General appearance: well-developed, obese, chronically ill, fatigue, frail EENT: ATNC, PERRL, mucous membranes dry Additional Comments: periorbital and facial edema Neck: supple Respiratory: course breath sounds Cardiology: no edema, regular rate, regular rhythm, normal S1, normal S2 - Dialysis Access Dialysis Vascular Access: Venous Catheter (Left TDC with no exitsite erythema) Gastrointestinal: normoactive bowel sounds, no tenderness, no guarding Integumentary: no rash, warm and dry Neurologic: no focal deficit, no asterixis, alert and oriented x3 Musculoskeletal: no deformities, no erythema, no cyanosis Psychiatric: mood/affect appropriate, cooperative Results - Lab Results 11/05/17 06:12 11/05/17 06:12 Most recent lab results Calcium 8.7 mg/dL (8.6-10.3) 11/05/17 06:12 I reviewed the labs, med lists, progress notes, vitals, and imaging. Consult Discharge Plan - Plan Referrals: Nallely Hanna TUBE CLEANING OPERATOR [Primary Care Provider] -
[2017-11-05] MEDS: MethylPREDNISolone 40 MG/ML VIAL IVP SCH (18:41)
[2017-11-05] MEDS: hydrOXYzine pamoate 25 MG CAPSULE PO SCH ×2 (18:41→21:12)
[2017-11-05] MEDS: Furosemide 40 MG TABLET PO SCH (18:41)
[2017-11-05] MEDS: tiZANidine 4 MG TABLET PO SCH ×2 (18:41→21:13)
[2017-11-05] MEDS: Gabapentin 300 MG CAPSULE PO SCH (21:13)
[2017-11-05] MEDS: BuPROPion SR (12 HR) 150 MG TABLET PO SCH (21:13)
[2017-11-06] MEDS: MethylPREDNISolone 40 MG/ML VIAL IVP SCH ×2 (00:01→18:04)
[2017-11-06] MEDS: Ipratropium/Albuterol Neb 3 ML IH SCH ×6 (04:25→23:56)
[2017-11-06 05:16] LABS: Hematocrit 28.9 % (37.5-50.1); Hemoglobin 8.9 g/dL (12.9-16.9); Immature Granulocytes % 0.5 % (0-4); Lymphocytes # 0.8 K/mcL (0.6-4.6); Lymphocytes % 13.3 %; Mean Corpuscular HGB Conc 30.8 g/dL (31.6-35.5); Mean Corpuscular Hemoglobin 25.4 pg (28.0-33.3); Mean Corpuscular Volume 82.6 fL (83.0-100.0); Mean Platelet Volume 9.5 fL (9.4-12.4); Monocytes # 0.2 K/mcL (0.0-1.3); Monocytes % 2.9 %; Neutrophils # 4.9 K/mcL (1.6-8.9); Nucleated Red Blood Cells 0.7 /100 WBC (0); Platelet Count 208 K/mcL (140-400); Red Cell Distribution Width 18.2 % (11.5-14.5); Segmented Neutrophils % 83.3 %
[2017-11-06 05:30] LABS: Calcium 8.6 mg/dL (8.6-10.3); Potassium 4.3 mEq/L (3.5-5.1)
[2017-11-06] MEDS ORDERED: traMADol 50 MG TABLET PO PRN (08:37)
--- NOTE | 2017-11-06 08:56 | Electrocardiograph Report ---
[facility] Test Date: 2017-11-05 Pat Name: Steve Castro Department: 104 Room: 2A43 Gender: M Miter Operator: LEONCIO : 1965 Requested By: Burke Tanner Order Number: [id number] Reading MD: Ross Morris MD Measurements Intervals [employer] Rate: 101 P: 41 MA: 109 QRS: 65 QRSD: 81 T: 11 QT: 340 QTc: 398 Interpretive Statements SINUS TACHYCARDIA WITH SHORT MA INTERVAL POSSIBLE LEFT ATRIAL ENLARGEMENT ABNORMAL RHYTHM ECG Electronically Signed On 11-06-2017 8:54:42 EST by Ross Morris MD
[2017-11-06] MEDS: Aspirin 81 MG TAB.CHEW PO SCH (10:25)
[2017-11-06] MEDS: BuPROPion SR (12 HR) 150 MG TABLET PO SCH ×2 (10:25→20:13)
[2017-11-06] MEDS: Furosemide 40 MG TABLET PO SCH ×2 (10:26→18:04)
[2017-11-06] MEDS: tiZANidine 4 MG TABLET PO SCH (10:26)
[2017-11-06] MEDS: Isosorbide MONOnitrate (24 HR) 30 MG TAB.ER.24H PO SCH (10:26)
[2017-11-06] MEDS: *HR* OxyCODONE Immed Rel 5 MG TABLET PO PRN ×2 (10:26→18:03)
[2017-11-06] MEDS: hydrOXYzine pamoate 25 MG CAPSULE PO SCH ×3 (10:26→20:13)
[2017-11-06] MEDS: Azithromycin 250 MG TABLET PO SCH (10:27)
[2017-11-06] MEDS ORDERED: tiZANidine 4 MG TABLET PO PRN (12:13)
[2017-11-06] MEDS: *HR* Heparin 5,000 UNIT/ML VIAL SQ SCH (18:04)
--- NOTE | 2017-11-06 18:39 | Internal Med Progress Note ---
Date of Encounter: 11/06/17 Time of Encounter: 09:00 - Assessment and plan (1) COPD (chronic obstructive pulmonary disease) Status: Acute Assessment and plan: Improving; patient also likely has a component of volume overload, reports feeling significantly better after undergoing HD yesterday, after admission; continue tapering down IV steroids as tolerated, will hold Azithromycin as patient recently completed multiple courses of this. Continue bronchodilators and supplemental O2, is on home O2 at home; Qualifiers: COPD type: COPD with acute exacerbation Qualified Code(s): J44.1 - Chronic obstructive pulmonary disease with (acute) exacerbation (2) Anemia Status: Chronic Assessment and plan: receives Epogen at HD; Qualifiers: Anemia type: due to chronic kidney disease Chronic kidney disease stage: on chronic dialysis Qualified Code(s): N18.6 - End stage renal disease; D63.1 - Anemia in chronic kidney disease; D63.1 - Anemia in chronic kidney disease; Z99.2 - Dependence on renal dialysis; Z99.2 - Dependence on renal dialysis; Z99.2 - Dependence on renal dialysis; Z99.2 - Dependence on renal dialysis (3) CHF (congestive heart failure) Status: Chronic Assessment and plan: continue diuretics, beta harley; Telemetry monitoring; Qualifiers: Congestive heart failure type: unspecified Congestive heart failure chronicity: chronic Qualified Code(s): I50.9 - Heart failure, unspecified (4) ESRD (end stage renal disease) on dialysis Status: Chronic Assessment and plan: Nephrology on board for HD needs; next HD planned for tomorrow; (5) CAD (coronary artery disease) Status: Chronic Assessment and plan: continue ASA, beta harley, statin; Qualifiers: Coronary Disease-Associated Artery/Lesion type: [place] artery [place] vs. transplanted heart: [place] heart Associated angina: without angina Qualified Code(s): I25.10 - Atherosclerotic heart disease of [place] coronary artery without angina pectoris (6) DEE (obstructive sleep apnea) Status: Chronic (7) Tobacco abuse Status: Chronic (8) Leg wound, left Status: Chronic Assessment and plan: healed well; f/up with Podiatry/wound care center as outpatient; Qualifiers: Encounter type: subsequent encounter Qualified Code(s): S81.802D - Unspecified open wound, left lower leg, subsequent encounter - Subjective Interval history: Reports feeling better. Improved shortness of breath and wheezing. No chest pain, palpitations, cough. Reports drinking maybe a little more fluids, than he should. Patient also thinks that his current hospitalization is due to fluid restriction. - Constitutional Vitals: Temp Pulse Resp BP Pulse Ox 97.9 F 87 18 142/75 97 11/06/17 16:56 11/06/17 16:56 11/06/17 16:56 11/06/17 16:56 11/06/17 16:56 General appearance: Present: A&O X 3, answers questions appropriately - Respiratory Respiratory exam: Present: CTAB (Coarse breath sounds bilaterally. No wheezing. ). Absent: accessory muscle use, rales, rhonchi, wheezes - Cardiovascular Cardiovascular exam: Present: RRR, +S1, +S2. Absent: diastolic murmur, gallop, rubs, systolic murmur - GI/Abdominal GI/Abdominal exam: Present: normal bowel sounds, soft, no peritoneal signs. Absent: distended, tenderness - Extremities Exam Extremities exam: Present: pedal edema, warm, radial pulses palpable and symmetrical. Absent: calf tenderness, cyanotic Additional comments: Left leg chronic wound-healed and dry. - Neurological Exam Neurological exam: Present: CN II-XII intact, oriented X3, no focal deficits. Absent: pronater drift, facial droop, speech deficit Internal Medicine: Result - Labs CBC & Chem 7: 11/07/17 05:06 11/07/17 05:06 Labs: Short CBC 11/06/17 Range/Units 04:20 WBC 5.9 (4.3-11.1) K/mcL Hgb 8.9 L (12.9-16.9) g/dL Hct 28.9 L (37.5-50.1) % Plt Count 208 (140-400) K/mcL Neutrophils # 4.9 (1.6-8.9) K/mcL BMP 11/06/17 04:20 Sodium 129 L Potassium 4.3 Chloride 94 L Carbon Dioxide 28 BUN 16 Creatinine 2.68 H Glucose 145 H Calcium 8.6 Consult Discharge Plan - Plan Instructions: Heart Failure (DC) Additional Instructions: F/up with HD 3 times/week- MWF Referrals: Nallely Hanna CNP [Primary Care Provider] - 11/12/17 10:00 am () Prescriptions: predniSONE [PredniSONE] 40 mg PO DAILY #10 tablet
[2017-11-06] MEDS: Gabapentin 300 MG CAPSULE PO SCH (20:13)
[2017-11-07] MEDS: Ipratropium/Albuterol Neb 3 ML IH SCH ×3 (04:06→10:50)
[2017-11-07] MEDS: *HR* Heparin 5,000 UNIT/ML VIAL SQ SCH (05:56)
[2017-11-07] MEDS: MethylPREDNISolone 40 MG/ML VIAL IVP SCH ×2 (05:56→09:11)
[2017-11-07 06:02] LABS: Hematocrit 26.5 % (37.5-50.1); Mean Corpuscular HGB Conc 30.2 g/dL (31.6-35.5); Mean Corpuscular Hemoglobin 25.7 pg (28.0-33.3); Mean Corpuscular Volume 85.2 fL (83.0-100.0); Mean Platelet Volume 10.2 fL (9.4-12.4); Platelet Count 200 K/mcL (140-400); Red Blood Count 3.11 M/mcL (4.19-5.50); Red Cell Distribution Width 18.3 % (11.5-14.5)
[2017-11-07] MEDS ORDERED: 0.9 % Sodium Chloride 250 ML IVC PRN (06:03)
[2017-11-07 06:29] LABS: Calcium 8.3 mg/dL (8.6-10.3); Potassium 5.1 mEq/L (3.5-5.1)
[2017-11-07] MEDS ORDERED: *HR* Heparin 10,000 UNIT/10 ML VIAL IV PRN (07:25)
[2017-11-07] MEDS: hydrOXYzine pamoate 25 MG CAPSULE PO SCH (08:49)
[2017-11-07] MEDS: BuPROPion SR (12 HR) 150 MG TABLET PO SCH (08:49)
[2017-11-07] MEDS: Furosemide 40 MG TABLET PO SCH (08:49)
[2017-11-07] MEDS: Isosorbide MONOnitrate (24 HR) 30 MG TAB.ER.24H PO SCH (08:49)
[2017-11-07] MEDS: Aspirin 81 MG TAB.CHEW PO SCH (08:50)
[2017-11-07] MEDS: *HR* OxyCODONE Immed Rel 5 MG TABLET PO PRN (08:50)
[2017-11-07] MEDS: Azithromycin 250 MG TABLET PO SCH (09:11)
[2017-11-07] MEDS ORDERED: Silvasorb 44.4 ML TUBE TP SCH (10:45)
--- NOTE | 2017-11-07 12:49 | Nephrology Progress Note ---
Date of Encounter: 11/07/17 Time of Encounter: 12:40 - Assessment and Plan (1) ESRD (end stage renal disease) on dialysis Current Visit: Yes Status: Chronic Continue HD with UF as tolerated Fluid restriction advised once more in hospital and at home (2) Hyponatremia Current Visit: Yes Status: Acute sodium remains low at 128 due volume overload, should improve with HD today (3) Anemia in ESRD (end-stage renal disease) Current Visit: Yes Status: Chronic Hgb noted low at 8, will resume EPO/iv iron on discharge in outpatient Subjective Interval history: Pt seen and examined on HD feeling better with his breathing. Wants to go home. Objective - Vital Signs Vital signs: Vital Signs Temp Pulse Resp BP Pulse Ox 11/07/17 11:35 148/89 11/07/17 11:20 165/87 11/07/17 11:05 165/87 11/07/17 10:50 159/93 11/07/17 10:35 160/93 11/07/17 10:20 159/93 11/07/17 10:05 187/102 11/07/17 10:00 97.2 F L 20 182/103 11/07/17 07:53 18 97 11/07/17 06:40 97.4 F L 81 17 159/81 98 11/07/17 04:16 97.9 F 75 18 165/89 99 11/07/17 04:06 20 99 11/06/17 23:56 19 97 11/06/17 23:50 98.8 F 75 18 161/85 98 11/06/17 20:35 16 98 11/06/17 19:03 98.3 F 86 18 162/87 93 11/06/17 16:56 97.9 F 87 18 142/75 97 11/06/17 15:33 18 97 Intake and Output 11/06/17 11/07/17 11/07/17 23:59 07:59 15:59 Intake Total 0 / 0 480 / 480 Balance 0 / 0 480 / 480 Intake: Oral 0 / 0 480 / 480 Other: Meal Breakfast Percent of Meal Consumed 100% # Voids 2 Weight 78.4 kg Blood Glucose* 174 142 Patient Weight 11/07/17 23:59 Weight 78.4 kg - General Appearance General appearance: Present: chronically ill EENT: Present: ATNC, mucous membranes moist Neck: Present: no JVD, supple Additional Comments: good areation ant bilat Cardiology: Present: no edema, regular rate, regular rhythm, normal S1, normal S2 Dialysis Vascular Access: Venous Catheter (permcath) Gastrointestinal: Present: no tenderness, no guarding Integumentary: Present: warm and dry, ulcer (LLE with dressing) Neurologic: Present: no focal deficit Musculoskeletal: Present: no deformities Psychiatric: Present: mood/affect appropriate - Lab 11/07/17 05:06 11/07/17 05:06 Most recent lab results Calcium 8.3 mg/dL (8.6-10.3) L 11/07/17 05:06 Consult Discharge Plan - Plan Referrals: Nallely Hanna CNP [Primary Care Provider] - 11/12/17 10:00 am ()
[2017-11-07 14:36] VITALS: BP 164/96
--- NOTE | 2017-11-07 14:55 | Discharge Summary ---
Date of Encounter: 11/07/17 Time of Encounter: 14:53 - Discharge Diagnosis (1) Fluid overload Priority: Primary Status: Acute Qualifiers: Hypervolemia type: other Qualified Code(s): E87.79 - Other fluid overload (2) Acute exacerbation of chronic obstructive airways disease Priority: Primary Status: Acute (3) Noncompliance Priority: Primary Status: Chronic (4) Depression Priority: Secondary Status: Chronic Qualifiers: Depression Type: unspecified Qualified Code(s): F32.9 - Major depressive disorder, single episode, unspecified (5) Anxiety Priority: Secondary Status: Chronic (6) CHF (congestive heart failure) Priority: Secondary Status: Chronic Qualifiers: Congestive heart failure type: diastolic Congestive heart failure chronicity: chronic Qualified Code(s): I50.32 - Chronic diastolic (congestive ) heart failure (7) ESRD (end stage renal disease) on dialysis Priority: Secondary Status: Chronic (8) HTN (hypertension) Priority: Secondary Status: Chronic Qualifiers: Hypertension type: essential hypertension Qualified Code(s): I10 - Essential (primary) hypertension (9) CAD (coronary artery disease) Priority: Secondary Status: Chronic Qualifiers: Coronary Disease-Associated Artery/Lesion type: [place] artery [place] vs. transplanted heart: [place] heart Associated angina: without angina Qualified Code(s): I25.10 - Atherosclerotic heart disease of [place] coronary artery without angina pectoris (10) DEE (obstructive sleep apnea) Priority: Secondary Status: Chronic - Discharge Medications Prescriptions: predniSONE [PredniSONE] 40 mg PO DAILY #10 tablet Home Medications: Fluticasone/Salmeterol [Advair 250-50 Diskus] 1 puff IH BID 10/02/15 [History] Furosemide [Lasix] 40 - 80 mg PO BID PRN 10/02/15 [History] Lidocaine Patch [Lidoderm 5% patch] 1 patch TP DAILY 10/02/15 [History] hydrOXYzine HCl [Hydroxyzine HCl] 25 mg PO TID 10/02/15 [History] Isosorbide MONOnitrate (24 HR) [Imdur] 30 mg PO DAILY #30 tab.er.24h 09/03/16 [ Rx] Ergocalciferol (VITAMIN D2) [Vitamin D2] 50,000 unit PO MO 11/03/16 [History] Lisinopril [Zestril] 10 mg PO DAILY 11/03/16 [History] Simvastatin [Zocor] 40 mg PO HS 11/03/16 [History] Tizanidine HCl [Zanaflex] 4 mg PO TID 11/03/16 [History] Ipratropium/Albuterol Sulfate [Combivent Respimat Inhal [place]] 1 puff IH QID 04/28 [History] Aspirin 81 mg PO DAILY #30 tab.chew 11/24/16 [Rx] Tramadol HCl [Ultram] 50 mg PO TID PRN 05/08/17 [History] Ipratropium/Albuterol Neb [Duoneb] 3 ml IH Q4HR #90 vial.neb 07/25/17 [Rx] Carvedilol 12.5 mg PO BID 07/30/17 [History] Potassium Chloride [K-Tab ER] 20 meq PO DAILY 10/18/17 [History] Sertraline [Zoloft] 50 mg PO DAILY 10/18/17 [History] Albuterol Sulfate [Proair Hfa] 2 puff IH Q4H PRN 30 Days hfa.aer.ad 10/21/17 [ Rx] buPROPion HCl [Zyban] 150 mg PO BID 10/27/17 [History] Gabapentin [Neurontin] 300 mg PO BID #30 11/07/17 [Rx] predniSONE [PredniSONE] 40 mg PO DAILY #10 tablet 11/07/17 [Rx] Allergies/Adverse Reactions: 3 Allergy/AdvReac Type Severity Reaction Status Date / Time bee venom protein (honey bee) AdvReac Swelling Verified 11/05/17 06:11 of Lip/Tongue/Throat potassium AdvReac Vomiting Verified 11/05/17 06:11 prednisone AdvReac Nausea Verified 11/05/17 06:11 Date of admission: 11/05/17 09:08 Primary care physician: Nallely Hanna CNP Consults: 11/06/17 14:57 Consult to Wound Care [CONS] Routine Reason for Consult: lle wound seen at [facility] Time Notified: 14:57 Call Completed: Yes 11/07/17 06:15 Consult to Dialysis [CONS] ONCE Discharging clinician: Tish Vidal Anticipated date of discharge: 11/07/17 - Patient Status Disposition: Home Health Service Condition: Fair Functional capacity at discharge: uses cane/walker Overall status at discharge: patient is progressing back to baseline - Discharge Instructions Instructions: Heart Failure (DC) Follow Up With: Nallely Hanna CNP [Primary Care Provider] - 11/12/17 10:00 am () Additional Instructions: F/up with HD 3 times/week- MWF - Diet and Activity Activity: as per physical therapy, resume usual activities as tolerated, wear oxygen at all times Diet: diabetic diet, low fat, low cholesterol, low salt diet, other (renal diet , fluid restriction to 1.5L/day) Hospital course: Mr. Castro is a 52 year old male with the above medical problems, who is well- known to our service with multiple recurrent hospitalizations with similar complaints. He was admitted with shortness of breath and noted to have a complement of volume overload along with acute bronchitis. He responded well to IV steroids, bronchodilators and felt significantly better after undergoing hemodialysis. He continues to be noncompliant with fluid restriction as an outpatient, and feels that his current admission is because of fluid restriction. He underwent 2 sessions of dialysis while in the hospital, and is currently medically stable for discharge. He is at his baseline oxygen requirements. Home health services are being resumed. - Time Spent with Patient Total time spent providing and/or coordinating discharge services: Greater than 30 minutes (45 min) - Constitutional Vitals: Temp Pulse Resp BP Pulse Ox 97.2 F L 81 20 164/96 97 11/07/17 10:00 11/07/17 06:40 11/07/17 10:00 11/07/17 13:35 11/07/17 07:53 General appearance: Present: A&O X 3, answers questions appropriately - Respiratory Respiratory exam: Present: CTAB. Absent: accessory muscle use, rales, rhonchi, wheezes
== END 2017-11-07 15:38 | disposition home health service (06) ==
LOC: 2SOUTHHOLD 06:05 → EMEROO 06:05 → SUATTDRO 09:08 → 2SOUTHHOLD 09:32 → 2ANU 16:38
PROVIDERS: ADMIT Internal Medicine; ATTEND Internal Medicine

== ENCOUNTER 2018-03-15 17:41 | Observation (INO) ==
--- NOTE | 2018-03-15 17:48 | Emergency Department Note ---
Disposition Clinical Impression: Generalized weakness, Hyponatremia, Hypophosphatemia, ESRD (end stage renal disease) on dialysis, Hypokalemia, Anemia Disposition: Admitted As Inpatient Condition: Fair Referrals: Nallely Hanna CNP [Primary Care Provider] - Forms: ED Satisfaction Letter General Adult HPI - General Chief complaint: ED Nausea/Vomiting/Diarrhea Stated complaint: Abnormal labs, Nausea Time Seen by Provider: 03/15/18 17:44 - Related Data Home Medications Medication Instructions Recorded Confirmed Fluticasone/Salmeterol [Advair 1 puff IH BID 10/02/15 11/05/17 250-50 Diskus] Furosemide [Lasix] 40 - 80 mg PO BID PRN 10/02/15 11/05/17 Lidocaine Patch [Lidoderm 5% patch] 1 patch TP DAILY 10/02/15 11/05/17 hydrOXYzine HCl [Hydroxyzine HCl] 25 mg PO TID 10/02/15 11/05/17 Ergocalciferol (VITAMIN D2) 50,000 unit PO MO 11/03/16 11/05/17 [Vitamin D2] Lisinopril [Zestril] 10 mg PO DAILY 11/03/16 11/05/17 Simvastatin [Zocor] 40 mg PO HS 11/03/16 11/05/17 Tizanidine HCl [Zanaflex] 4 mg PO TID 11/03/16 11/05/17 Ipratropium/Albuterol Sulfate 1 puff IH QID 11/19/16 11/05/17 [Combivent Respimat Inhal [place]] Tramadol HCl [Ultram] 50 mg PO TID PRN 05/08/17 11/05/17 Carvedilol 12.5 mg PO BID 07/30/17 11/05/17 Potassium Chloride [K-Tab ER] 20 meq PO DAILY 10/18/17 11/05/17 Sertraline [Zoloft] 50 mg PO DAILY 10/18/17 11/05/17 buPROPion HCl [Zyban] 150 mg PO BID 10/27/17 11/05/17 Previous Rx's Medication Instructions Recorded Isosorbide MONOnitrate (24 HR) 30 mg PO DAILY #30 tab.er.24h 09/03/16 [Imdur] Aspirin 81 mg PO DAILY #30 tab.chew 11/24/16 Ipratropium/Albuterol Neb [Duoneb] 3 ml IH Q4HR #90 vial.neb 07/25/17 Albuterol Sulfate [Proair Hfa] 2 puff IH Q4H PRN 30 Days 10/21/17 hfa.aer.ad Gabapentin [Neurontin] 300 mg PO BID #30 11/07/17 predniSONE [PredniSONE] 40 mg PO DAILY #10 tablet 11/07/17 Allergies Allergy/AdvReac Type Severity Reaction Status Date / Time bee venom protein (honey bee) AdvReac Swelling Verified 11/05/17 06:11 of Lip/Tongue/Throat potassium AdvReac Vomiting Verified 11/05/17 06:11 prednisone AdvReac Nausea Verified 11/05/17 06:11 Past Medical History - Past Medical History Medical history: Reports: arthritis, CHF, COPD, coronary artery disease, dialysis, GERD, hyperlipidemia, hypertension, myocardial infarction, osteoporosis, peripheral artery disease, renal disease, other Surgical history: Reports: non-contributory, vascular surgery, other Psychiatric history: Reports: anxiety, depression, other - Social History Smoking Status: Current every day smoker Smokeless Tobacco Status: Yes Alcohol use: Reports: none Drug use: Reports: marijuana Course Vital Signs Temperature 98.2 F 03/15/18 17:42 Pulse Rate 110 03/15/18 17:42 Respiratory Rate 20 03/15/18 17:42 Blood Pressure 154/79 03/15/18 17:42 O2 Sat by Pulse Oximetry 99 03/15/18 17:42 Temperature 98.2 F 03/15/18 18:24 Pulse Rate 112 03/15/18 18:25 Respiratory Rate 20 03/15/18 18:25 Blood Pressure 149/76 03/15/18 18:25 O2 Sat by Pulse Oximetry 100 03/15/18 18:25 Oxygen Delivery Oxygen Delivery Room Air Medical Decision Making - Lab Data Result diagrams: 03/15/18 18:49 03/15/18 18:49 Lab Results 03/15/18 03/15/18 Range/Units 18:49 18:49 WBC 7.6 (4.3-11.1) K/mcL RBC 3.52 L (4.19-5.50) M/mcL Hgb 9.1 L (12.9-16.9) g/dL Hct 27.1 L (37.5-50.1) % MCV 77.0 L (83.0-100.0) fL MCH 25.9 L (28.0-33.3) pg MCHC 33.6 (31.6-35.5) g/dL RDW 16.4 H (11.5-14.5) % Plt Count 119 L (140-400) K/mcL MPV 10.4 (9.4-12.4) fL Immature Gran % 0.5 (0-4) % Seg Neutrophils % 65.6 % Lymphocytes % 21.6 % Monocytes % 11.1 % Eosinophils % 0.8 % Basophils % 0.4 % Neutrophils # 5.0 (1.6-8.9) K/mcL Lymphocytes # 1.6 (0.6-4.6) K/mcL Monocytes # 0.8 (0.0-1.3) K/mcL Eosinophils # 0.1 (0.0-0.6) K/mcL Basophils # 0.0 (0.0-0.2) K/mcL Nucleated RBCs/100 WBC 0.3 H (0) /100 WBC Platelet Estimate Slight Decrease L (Normal) Immature Plt Fraction 3.3 (1.1-6.1) % Sodium 122 L (136-145) mEq/L Potassium 2.9 L (3.5-5.1) mEq/L Chloride 87 L (98-107) mEq/L Carbon Dioxide 24 (23-29) mEq/L BUN 11 (6-20) mg/dL Creatinine 3.56 H (0.70-1.30) mg/dL Est GFR ( Amer) 22 L (> 60) Est GFR (Non-Af Amer) 18 L (> 60) BUN/Creatinine Ratio 3 L (6-26) Glucose 92 (70-105) mg/dL Calculated Osmolality 253 L (280-300) Calcium 7.9 L (8.6-10.3) mg/dL Phosphorus < 1.0 L* (2.7-4.5) mg/dL Magnesium 1.4 L (1.6-2.6) mg/dL Attestation Statement - Attestation Attestation: I examined this patient and my medical decision-making was reviewed with the Resident Physician. I agree with the documented findings, disposition and treatment plan as described except to the extent set forth below. [id number] time provided Patient presents with nausea and vomiting. He has known history of dialysis dependent kidney disease. He appears older than stated age but no acute distress on exam. I have reviewed his most recent labs in the computer system. This patient was evaluated in conjunction with the resident physician Dr. Sanches
--- NOTE | 2018-03-15 18:29 | Emergency Department Note ---
Disposition Clinical Impression: Generalized weakness, Hyponatremia, Hypophosphatemia, ESRD (end stage renal disease) on dialysis, Hypokalemia Anemia Qualifiers: Anemia type: unspecified type Qualified Code(s): D64.9 - Anemia, unspecified Disposition: Admitted As Inpatient Condition: Fair Forms: ED Satisfaction Letter Time of Disposition: 20:01 General Adult HPI - General Chief complaint: ED Nausea/Vomiting/Diarrhea Stated complaint: Abnormal labs, Nausea Time Seen by Provider: 03/15/18 17:44 Source: patient Mode of arrival: ambulatory Limitations: no limitations Nursing Notes Reviewed: Yes Vital Signs Reviewed: Yes - History of Present Illness HPI Narrative: Patient is a 53-year-old male who presents to [facility] ED with a chief complaint of generalized weakness. States over the last several weeks, he has been getting more weak. States he is end-stage renal disease on dialysis Friday and Friday and follows with Dr. Acevedo. States they have drawn his labs at dialysis and state he needs to come in because his " blood levels are low". He does not know exactly what is actually low. States he has not had any other symptoms except for generalized weakness. Denies any chest pain, difficulty breathing, abdominal pain, problems with urination or bowel movements. Denies any nausea, vomiting, fever or chills. Onset (ago): week(s) (3) Consistency: constant Improves with: nothing Worsens with: nothing Associated symptoms: Reports: weakness Treatments Prior to Arrival: none - Related Data Home Medications Medication Instructions Recorded Confirmed Fluticasone/Salmeterol [Advair 1 puff IH BID 10/02/15 11/05/17 250-50 Diskus] Furosemide [Lasix] 40 - 80 mg PO BID PRN 10/02/15 11/05/17 Lidocaine Patch [Lidoderm 5% patch] 1 patch TP DAILY 10/02/15 11/05/17 hydrOXYzine HCl [Hydroxyzine HCl] 25 mg PO TID 10/02/15 11/05/17 Ergocalciferol (VITAMIN D2) 50,000 unit PO MO 11/03/16 11/05/17 [Vitamin D2] Lisinopril [Zestril] 10 mg PO DAILY 11/03/16 11/05/17 Simvastatin [Zocor] 40 mg PO HS 11/03/16 11/05/17 Tizanidine HCl [Zanaflex] 4 mg PO TID 11/03/16 11/05/17 Ipratropium/Albuterol Sulfate 1 puff IH QID 11/19/16 11/05/17 [Combivent Respimat Inhal [place]] Tramadol HCl [Ultram] 50 mg PO TID PRN 05/08/17 11/05/17 Carvedilol 12.5 mg PO BID 07/30/17 11/05/17 Potassium Chloride [K-Tab ER] 20 meq PO DAILY 10/18/17 11/05/17 Sertraline [Zoloft] 50 mg PO DAILY 10/18/17 11/05/17 buPROPion HCl [Zyban] 150 mg PO BID 10/27/17 11/05/17 Previous Rx's Medication Instructions Recorded Isosorbide MONOnitrate (24 HR) 30 mg PO DAILY #30 tab.er.24h 09/03/16 [Imdur] Aspirin 81 mg PO DAILY #30 tab.chew 11/24/16 Ipratropium/Albuterol Neb [Duoneb] 3 ml IH Q4HR #90 vial.neb 07/25/17 Albuterol Sulfate [Proair Hfa] 2 puff IH Q4H PRN 30 Days 10/21/17 hfa.aer.ad Gabapentin [Neurontin] 300 mg PO BID #30 11/07/17 predniSONE [PredniSONE] 40 mg PO DAILY #10 tablet 11/07/17 Allergies Allergy/AdvReac Type Severity Reaction Status Date / Time bee venom protein (honey bee) AdvReac Swelling Verified 11/05/17 06:11 of Lip/Tongue/Throat potassium AdvReac Vomiting Verified 11/05/17 06:11 prednisone AdvReac Nausea Verified 11/05/17 06:11 All systems ED: reviewed and negative except as stated. Past Medical History - Past Medical History Attestation: Yes The following information was validated with the patient. Source: patient Medical history: Reports: arthritis, CHF, COPD, coronary artery disease, dialysis, GERD, hyperlipidemia, hypertension, myocardial infarction, osteoporosis, peripheral artery disease, renal disease, other Surgical history: Reports: non-contributory, vascular surgery, other Psychiatric history: Reports: anxiety, depression, other - Social History Smoking Status: Current every day smoker Smokeless Tobacco Status: Yes Alcohol use: Reports: none Drug use: Reports: marijuana Physical Exam - General Limitations: no limitations General appearance: alert, in no apparent distress - Head Head exam: atraumatic, normocephalic, normal inspection - Eye Eye exam: Present: normal appearance, EOMI - ENT ENT exam: normal exam, normal oropharynx, mucous membranes moist - Neck Neck exam: Present: normal inspection, full ROM, trachea midline - Chest Chest inspection: Present: normal inspection, symmetric chest wall rise - Respiratory Respiratory exam: Present: normal lung sounds bilaterally - Cardiovascular Cardiovascular exam: Present: normal rhythm, tachycardia - Abdominal Exam Abdominal exam: Present: soft, Non-Tender. Absent: tenderness, distention, guarding, rebound, rigidity - Extremities Exam Extremities exam: Present: normal inspection, full ROM. Absent: tenderness, pedal edema - Neurological Exam Neurological exam: Present: alert, oriented X3 - Psychiatric Psychiatric exam: Present: normal affect, normal mood - Skin Skin exam: Present: warm, dry, intact, normal color Course Course Narrative: Patient seen and examined. Reported abnormal labs. Unknown what is actually abnormal. I am unable to track down any abnormal labs recently in his EC W or our system. We will get a CBC, BMP, magnesium and phosphorus level. We will also get an EKG. - Reevaluation(s) Reevaluation #1: Patient's lab work shows hyponatremia with a sodium of 122, hypokalemia with a potassium of 2.9, hypophosphatemia with a phosphate less than 1, hypomagnesium with a mg of 1.4. I discussed with marker maker Dr. Acevedo who states she was consult on the patient and dialyze him if he is hooked fluid overloaded tomorrow. Recommends Neutra-Phos, potassium 40 mEq, and magnesium oxide 800 mg. This was ordered. Recommends admission for monitoring since patient has multiple comorbidities and is at risk for decompensating. Time: 19:58 Vital Signs Temperature 98.2 F 03/15/18 17:42 Pulse Rate 110 03/15/18 17:42 Respiratory Rate 20 03/15/18 17:42 Blood Pressure 154/79 03/15/18 17:42 O2 Sat by Pulse Oximetry 99 03/15/18 17:42 Temperature 98.2 F 03/15/18 18:24 Pulse Rate 112 03/15/18 18:25 Respiratory Rate 20 03/15/18 18:25 Blood Pressure 149/76 03/15/18 18:25 O2 Sat by Pulse Oximetry 100 03/15/18 18:25 Oxygen Delivery Oxygen Delivery Room Air Medical Decision Making - Medical Records Medical records reviewed: Yes I reviewed the patient's medical records. - Lab Data Lab results reviewed: Yes I reviewed the patient's lab results. Result diagrams: 03/15/18 18:49 03/15/18 18:49 Lab Results 03/15/18 03/15/18 Range/Units 18:49 18:49 WBC 7.6 (4.3-11.1) K/mcL RBC 3.52 L (4.19-5.50) M/mcL Hgb 9.1 L (12.9-16.9) g/dL Hct 27.1 L (37.5-50.1) % MCV 77.0 L (83.0-100.0) fL MCH 25.9 L (28.0-33.3) pg MCHC 33.6 (31.6-35.5) g/dL RDW 16.4 H (11.5-14.5) % Plt Count 119 L (140-400) K/mcL MPV 10.4 (9.4-12.4) fL Immature Gran % 0.5 (0-4) % Seg Neutrophils % 65.6 % Lymphocytes % 21.6 % Monocytes % 11.1 % Eosinophils % 0.8 % Basophils % 0.4 % Neutrophils # 5.0 (1.6-8.9) K/mcL Lymphocytes # 1.6 (0.6-4.6) K/mcL Monocytes # 0.8 (0.0-1.3) K/mcL Eosinophils # 0.1 (0.0-0.6) K/mcL Basophils # 0.0 (0.0-0.2) K/mcL Nucleated RBCs/100 WBC 0.3 H (0) /100 WBC Platelet Estimate Slight Decrease L (Normal) Immature Plt Fraction 3.3 (1.1-6.1) % Sodium 122 L (136-145) mEq/L Potassium 2.9 L (3.5-5.1) mEq/L Chloride 87 L (98-107) mEq/L Carbon Dioxide 24 (23-29) mEq/L BUN 11 (6-20) mg/dL Creatinine 3.56 H (0.70-1.30) mg/dL Est GFR ( Amer) 22 L (> 60) Est GFR (Non-Af Amer) 18 L (> 60) BUN/Creatinine Ratio 3 L (6-26) Glucose 92 (70-105) mg/dL Calculated Osmolality 253 L (280-300) Calcium 7.9 L (8.6-10.3) mg/dL Phosphorus < 1.0 L* (2.7-4.5) mg/dL Magnesium 1.4 L (1.6-2.6) mg/dL - Radiology Data Radiology results reviewed: Yes I reviewed the patient's radiology results. - EKG Data EKG #1 EKG attestation: Yes I reviewed and interpreted this EKG. EKG results narrative: EKG done at 1814 shows sinus tachycardia with a rate of [address] elevation or depression noted. T-wave inversions noted in leads 2. Occasional PVCs noted. Unchanged from prior EKG done 11/14/2017.
[2018-03-15 19:02] LABS: Basophils % 0.4 %; Eosinophils % 0.8 %
[2018-03-15 19:04] LABS: Eosinophils # 0.1 K/mcL (0.0-0.6); Hematocrit 27.1 % (37.5-50.1); Hemoglobin 9.1 g/dL (12.9-16.9); Immature Granulocytes % 0.5 % (0-4); Immature Platelets 3.3 % (1.1-6.1); Lymphocytes % 21.6 %; Mean Corpuscular HGB Conc 33.6 g/dL (31.6-35.5); Mean Corpuscular Hemoglobin 25.9 pg (28.0-33.3); Mean Platelet Volume 10.4 fL (9.4-12.4); Monocytes % 11.1 %; Nucleated Red Blood Cells 0.3 /100 WBC (0); Platelet Count 119 K/mcL (140-400); Red Blood Count 3.52 M/mcL (4.19-5.50); Red Cell Distribution Width 16.4 % (11.5-14.5); Segmented Neutrophils % 65.6 %
[2018-03-15 19:37] LABS: BUN/Creatinine Ratio 3 (6-26); Blood Urea Nitrogen 11 mg/dL (6-20); Calcium 7.9 mg/dL (8.6-10.3); Carbon Dioxide 24 mEq/L (23-29); Chloride 87 mEq/L (98-107); Glucose 92 mg/dL (70-105); Magnesium 1.4 mg/dL (1.6-2.6); Osmolality,Calculated 253 (280-300); Potassium 2.9 mEq/L (3.5-5.1); Sodium 122 mEq/L (136-145); eGFR For African Americans 22 (> 60); eGFR For Non-African Americans 18 (> 60)
[2018-03-15 19:40] LABS: Lymphocytes # 1.6 K/mcL (0.6-4.6); Monocytes # 0.8 K/mcL (0.0-1.3)
[2018-03-15 19:41] LABS: Platelet Estimate Slight Decrease (Normal)
[2018-03-15 21:51] LABS: Phosphorous < 1.0 mg/dL (2.7-4.5)
[2018-03-15] MEDS ORDERED: Naloxone 0.4 MG/ML INJ IVP PRN (22:12)
[2018-03-15] MEDS ORDERED: Acetaminophen 325 MG TABLET PO PRN (22:12)
--- NOTE | 2018-03-16 | Internal Med History&Physical ---
Date of Encounter: 03/15/18 Time of Encounter: 21:15 Internal Medicine - H&P: HPI Chief complaint: Was told to go to the ER due to abnormal labs. Admitted From: Emergency Dept Plans for Post Hospital Care: Home History of present illness: Mr. Castro is a 53 year old male patient with a history of end-stage renal disease on hemodialysis, COPD, coronary artery disease, hypertension, CHF who presented to the ER with complaints of fatigue. He has been going to dialysis as scheduled but was noted to have abnormal labs there. He was told to go to the ER to get further workup done. He denies any chest pain or palpitations. No nausea or vomiting. No fever or chills. No abdominal pain. Past Med Surg Social Fam HX - Past Medical History Attestation: Yes The following information was validated with the patient. Source: patient, old records reviewed Medical history: arthritis, CHF, COPD, coronary artery disease, dialysis, GERD, hyperlipidemia, hypertension, myocardial infarction, osteoporosis, peripheral artery disease, renal disease, other Additional medical history: DM, ESRD 3, CHF Psychiatric history: anxiety, depression, other - Past Surgical History Surgical History: non-contributory, vascular surgery, other Additional surgical history: has had port placed and is now removed stated by patient. HD permacath ZE - Social History Smoking Status: Current every day smoker Smokeless Tobacco Status: Yes Alcohol use: none Drug use: marijuana - Family History Mother Living Status: Hx Family Cardiac Disorders: Yes Father Adopted: No Living Status: Hx Family Cardiac Disorders: No Hx Family Respiratory Disorders: Yes Hx Family Cancer: Yes Hx Family GI Disorders: Yes Hx Family Endocrine Disorder: No Hx Family Neuromuscular Disorders: No Hx Family Neurologic Disorders: No Hx Family HEENT Disorders: No Hx Family Autoimmune Disorders: No Internal Medicine - H&P: Meds Fluticasone/Salmeterol [Advair 250-50 Diskus] 1 puff IH BID 10/02/15 [History] Furosemide [Lasix] 40 - 80 mg PO BID PRN 10/02/15 [History] Lidocaine Patch [Lidoderm 5% patch] 1 patch TP DAILY 10/02/15 [History] hydrOXYzine HCl [Hydroxyzine HCl] 25 mg PO TID 10/02/15 [History] Isosorbide MONOnitrate (24 HR) [Imdur] 30 mg PO DAILY #30 tab.er.24h 09/03/16 [ Rx] Ergocalciferol (VITAMIN D2) [Vitamin D2] 50,000 unit PO MO 11/03/16 [History] Lisinopril [Zestril] 10 mg PO DAILY 11/03/16 [History] Simvastatin [Zocor] 40 mg PO HS 11/03/16 [History] Tizanidine HCl [Zanaflex] 4 mg PO TID 11/03/16 [History] Ipratropium/Albuterol Sulfate [Combivent Respimat Inhal [place]] 1 puff IH QID 04/28 [History] Aspirin 81 mg PO DAILY #30 tab.chew 11/24/16 [Rx] Tramadol HCl [Ultram] 50 mg PO TID PRN 05/08/17 [History] Ipratropium/Albuterol Neb [Duoneb] 3 ml IH Q4HR #90 vial.neb 07/25/17 [Rx] Carvedilol 12.5 mg PO BID 07/30/17 [History] Potassium Chloride [K-Tab ER] 20 meq PO DAILY 10/18/17 [History] Sertraline [Zoloft] 50 mg PO DAILY 10/18/17 [History] Albuterol Sulfate [Proair Hfa] 2 puff IH Q4H PRN 30 Days hfa.aer.ad 10/21/17 [ Rx] buPROPion HCl [Zyban] 150 mg PO BID 10/27/17 [History] Gabapentin [Neurontin] 300 mg PO BID #30 11/07/17 [Rx] predniSONE [PredniSONE] 40 mg PO DAILY #10 tablet 11/07/17 [Rx] 3 Allergy/AdvReac Type Severity Reaction Status Date / Time bee venom protein (honey bee) AdvReac Swelling Verified 11/05/17 06:11 of Lip/Tongue/Throat potassium AdvReac Vomiting Verified 11/05/17 06:11 prednisone AdvReac Nausea Verified 11/05/17 06:11 All Systems PM: A 10-system review of systems was performed and is negative for pertinent findings except as documented above in the HPI. - Constitutional Constitutional: fatigue, malaise, no chills, no fever(s), no night sweats - EENT Eyes: no change in vision, no discharge, no pain, no photophobia Ears: no ear discharge, no ear pain, no tinnitus Nose, mouth and throat: no dysphagia, no nasal discharge, no neck pain, no sore throat - Cardiovascular Cardiovascular ROS IM: edema, no chest pain, no diaphoresis, no dyspnea, no lightheadedness, no palpitations, no syncope - Respiratory Respiratory: no cough, no dyspnea, no wheezing, no excessive phlegm production - Gastrointestinal Gastrointestinal: no abdominal pain, no diarrhea, no hematemesis, no hematochezia, no melena, no nausea, no vomiting - Musculoskeletal Musculoskeletal ROS IM: no numbness, no tingling - Integumentary Integumentary IM: no rash, no unusual bruising - Neurological Neurological ROS: no confusion, no convulsions, no focal weakness, no numbness, no tingling, no tremor(s) - Hematologic/Lymphatic Hematologic/Lymphatic: no easy bruising - Constitutional Vitals: Temp Pulse Resp BP Pulse Ox 98.2 F 112 20 138/89 99 03/15/18 18:24 03/15/18 21:47 03/15/18 21:47 03/15/18 21:47 03/15/18 21:47 General appearance: Present: cooperative, A&O X 3, pleasant, obese, answers questions appropriately - Eye Eye exam: Present: EOMI, conjuntiva pink, sclera anicteric - Neck Neck exam general surgery: Present: supple, trachea midline. Absent: lymphadenopathy - Respiratory Respiratory exam: Present: CTAB. Absent: accessory muscle use, rales, rhonchi, wheezes - Cardiovascular Cardiovascular exam: Present: RRR, +S1, +S2. Absent: diastolic murmur, gallop, rubs, systolic murmur - GI/Abdominal GI/Abdominal exam: Present: normal bowel sounds, soft, no peritoneal signs. Absent: distended, tenderness - Extremities Exam Extremities exam: Present: pedal edema, warm, radial pulses palpable and symmetrical. Absent: calf tenderness, cyanotic - Neurological Exam Neurological exam: Present: CN II-XII intact, oriented X3, no focal deficits. Absent: facial droop, speech deficit - Skin Skin exam: Present: dry, intact Internal Med - H&P Results - Labs CBC & Chem 7: 03/15/18 18:49 03/15/18 18:49 Labs: Short CBC 03/15/18 Range/Units 18:49 WBC 7.6 (4.3-11.1) K/mcL Hgb 9.1 L (12.9-16.9) g/dL Hct 27.1 L (37.5-50.1) % Plt Count 119 L (140-400) K/mcL Neutrophils # 5.0 (1.6-8.9) K/mcL BMP 03/15/18 18:49 Sodium 122 L Potassium 2.9 L Chloride 87 L Carbon Dioxide 24 BUN 11 Creatinine 3.56 H Glucose 92 Calcium 7.9 L - Impressions ITS Impressions Chest X-Ray 03/15/18 19:55 IMPRESSION: 1. Small right pleural effusion with overlying atelectasis. 2. Pulmonary vascular congestion, likely secondary to fluid overload. D/ / Luke Rosen MD / Luke Rosen MD Interpreting Provider: Luke Rosen MD - Assessment and plan (1) Hyponatremia Current Visit: Yes Status: Acute Assessment and plan: Acute on chronic hyponatremia. Sodium 122. Consult nephrology for management. (2) Hypokalemia Current Visit: Yes Status: Acute Assessment and plan: Potassium 2.9. We will replete. (3) Anemia Current Visit: Yes Status: Chronic Assessment and plan: Hemoglobin 9.1. Baseline appears to be between 8 and 10. We will monitor. Qualifiers: Anemia type: due to chronic kidney disease Chronic kidney disease stage: on chronic dialysis Qualified Code(s): N18.6 - End stage renal disease; D63.1 - Anemia in chronic kidney disease; Z99.2 - Dependence on renal dialysis (4) ESRD (end stage renal disease) on dialysis Current Visit: Yes Status: Chronic Assessment and plan: Consult nephrology for dialysis management. (5) Hypophosphatemia Current Visit: Yes Status: Chronic Assessment and plan: Phosphorus levels are low. We will replete orally (6) CHF (congestive heart failure) Current Visit: Yes Status: Chronic Assessment and plan: Chronic diastolic heart failure. Not in acute exacerbation. Continue home medications. Qualifiers: Qualified Code(s): I50.33 - Acute on chronic diastolic (congestive) heart failure (7) COPD (chronic obstructive pulmonary disease) Current Visit: Yes Status: Chronic Assessment and plan: Not in excess inpatient. Place patient on duo nebs as needed Qualifiers: COPD type: unspecified COPD Qualified Code(s): J44.9 - Chronic obstructive pulmonary disease, unspecified (8) Hypomagnesemia Current Visit: Yes Status: Acute Assessment and plan: We will replete magnesium orally. - Time Spent With Patient Total time spent is greater than 50% in coordination of care (as documented) at patient's floor/unit and/or counseling patient:
[2018-03-16] MEDS: Magnesium Oxide 400 MG TABLET PO SCH ×2 (01:00→14:17)
[2018-03-16] MEDS ORDERED: Ondansetron 4 MG/2 ML VIAL IVP PRN (01:31)
[2018-03-16 04:34] LABS: Basophils % 0.3 %; Eosinophils % 0.3 %; Hematocrit 27.3 % (37.5-50.1); Hemoglobin 9.3 g/dL (12.9-16.9); Immature Granulocytes % 0.9 % (0-4); Lymphocytes # 1.2 K/mcL (0.6-4.6); Lymphocytes % 15.7 %; Mean Corpuscular HGB Conc 34.1 g/dL (31.6-35.5); Mean Corpuscular Hemoglobin 25.8 pg (28.0-33.3); Mean Corpuscular Volume 75.6 fL (83.0-100.0); Mean Platelet Volume 9.4 fL (9.4-12.4); Monocytes # 0.9 K/mcL (0.0-1.3); Neutrophils # 5.3 K/mcL (1.6-8.9); Nucleated Red Blood Cells 0.3 /100 WBC (0); Platelet Count 103 K/mcL (140-400); Red Blood Count 3.61 M/mcL (4.19-5.50); Segmented Neutrophils % 70.8 %
[2018-03-16 04:48] LABS: Calcium 7.4 mg/dL (8.6-10.3); Magnesium 1.4 mg/dL (1.6-2.6); Phosphorous 1.1 mg/dL (2.7-4.5); Potassium 3.6 mEq/L (3.5-5.1)
[2018-03-16] MEDS ORDERED: traMADol 50 MG TABLET PO PRN (08:06)
--- NOTE | 2018-03-16 08:11 | Internal Med Progress Note ---
Date of Encounter: 03/16/18 Time of Encounter: 08:09 - Assessment and plan (1) Generalized weakness Current Visit: Yes Status: Acute Assessment and plan: D/w case with his neprhology Dr Acevedo who reports that it is not normal for his to have electrolytes issues. These are new Patient reports 3 weeks of diarrhea, nausea/emesis which may explain electrolytes disturbance - unsure of etiology, watch conservatively for now will do surveillance culture from peripheral blood and left chest dialysis line - no overt signs of infection or sepsis at current (2) Hypokalemia Current Visit: Yes Status: Acute Assessment and plan: Trial PO supplement in the ED To get phosnak for low phos (contains K) To adjust dialysate per nephrology - treat with HD (3) Hypomagnesemia Current Visit: Yes Status: Acute Assessment and plan: replete IV Mg (4) COPD (chronic obstructive pulmonary disease) Current Visit: Yes Status: Chronic Assessment and plan: chronic. Not in exacerbation baseline 2 L NC approx Qualifiers: COPD type: unspecified COPD Qualified Code(s): J44.9 - Chronic obstructive pulmonary disease, unspecified (5) Anemia Current Visit: Yes Status: Chronic Assessment and plan: likely 2/2 ESRD TAISHA per nephrology outpatient Qualifiers: Anemia type: due to chronic kidney disease Chronic kidney disease stage: on chronic dialysis Qualified Code(s): N18.6 - End stage renal disease; D63.1 - Anemia in chronic kidney disease; Z99.2 - Dependence on renal dialysis (6) Hypophosphatemia Current Visit: Yes Status: Chronic (7) ESRD (end stage renal disease) on dialysis Current Visit: Yes Status: Chronic Assessment and plan: gets MWF HD with Dr Acevedo (8) Hyponatremia Current Visit: Yes Status: Acute Assessment and plan: likely related to ESRD treat with HD (9) CHF (congestive heart failure), NYHA class II Current Visit: Yes Status: Acute Assessment and plan: Volume overload likely due to ESRD on HD To get UF with HD Continue cardiac med Qualifiers: Congestive heart failure type: unspecified Qualified Code(s): I50.9 - Heart failure, unspecified - Time Spent With Patient Total time spent is greater than 50% in coordination of care (as documented) at patient's floor/unit and/or counseling patient: - Subjective Interval history: He tells me that he lives with his son Follows with Dr Aecvedo Has been having 3 weeks of emesis, diarrhea - unknown etiology and was advised by his HD RN to admit to the hospital for eval . He has been delaying coming to the hospital until last evening - Constitutional Vitals: Temp Pulse Resp BP Pulse Ox 98.3 F 109 18 170/95 100 03/16/18 07:16 03/16/18 07:16 03/16/18 07:16 03/16/18 07:16 03/16/18 07:16 General appearance: Present: cooperative, A&O X 3, pleasant, obese, answers questions appropriately Exam: General - AAO x 3 Psych - Appropriate affect/speech. No agitation Eyes - KATHERINE. Eye lids intact. No scleral icterus Neuro - No gross peripheral or central neuro deficits on inspection Heart - Sinus. RRR. S1 and S2 present. No added HS/murmurs appreciated. No elevated JVD appreciated. Lung - Adequate air entry b/l, Bibasal crackles, no wheezes appreciated GI - Soft, non-tender. No hepatosplenomegaly/ascites. BS+ - No CVA/suprapubic tenderness or palpable bladder distension Skin - Intact. No rash/petechiae/ecchymosis. Warm extremities. b/l LE edema Internal Medicine: Result - Labs CBC & Chem 7: 03/16/18 04:08 03/16/18 04:08 Labs: Short CBC 03/16/18 03/16/18 03/16/18 Range/Units 04:08 04:08 04:08 WBC 7.5 (4.3-11.1) K/mcL RBC 3.61 L (4.19-5.50) M/mcL Hgb 9.3 L (12.9-16.9) g/dL Hct 27.3 L (37.5-50.1) % MCV 75.6 L (83.0-100.0) fL MCH 25.8 L (28.0-33.3) pg MCHC 34.1 (31.6-35.5) g/dL RDW 16.0 H (11.5-14.5) % Plt Count 103 L (140-400) K/mcL MPV 9.4 (9.4-12.4) fL Immature Gran % 0.9 (0-4) % Seg Neutrophils % 70.8 % Lymphocytes % 15.7 % Monocytes % 12.0 % Eosinophils % 0.3 % Basophils % 0.3 % Neutrophils # 5.3 (1.6-8.9) K/mcL Lymphocytes # 1.2 (0.6-4.6) K/mcL Monocytes # 0.9 (0.0-1.3) K/mcL Eosinophils # 0.0 (0.0-0.6) K/mcL Basophils # 0.0 (0.0-0.2) K/mcL Nucleated RBCs/100 WBC 0.3 H (0) /100 WBC Sodium 123 L (136-145) mEq/L Potassium 3.6 (3.5-5.1) mEq/L Chloride 91 L (98-107) mEq/L Carbon Dioxide 24 (23-29) mEq/L BUN 14 (6-20) mg/dL Creatinine 3.91 H (0.70-1.30) mg/dL Est GFR ( Amer) 20 L (> 60) Est GFR (Non-Af Amer) 16 L (> 60) BUN/Creatinine Ratio 4 L (6-26) Glucose 108 H (70-105) mg/dL Calculated Osmolality 257 L (280-300) Calcium 7.4 L (8.6-10.3) mg/dL Phosphorus 1.1 L (2.7-4.5) mg/dL Magnesium 1.4 L (1.6-2.6) mg/dL BMP 03/16/18 04:08 Sodium 123 L Potassium 3.6 Chloride 91 L Carbon Dioxide 24 BUN 14 Creatinine 3.91 H Glucose 108 H Calcium 7.4 L Consult Discharge Plan - Plan Referrals: Nallely Hanna, HYPOID GEAR GENERATOR [Primary Care Provider] -
[2018-03-16] MEDS ORDERED: 0.9 % Sodium Chloride 250 ML IVC PRN (08:23)
[2018-03-16] MEDS ORDERED: *HR* Heparin 10,000 UNIT/10 ML VIAL IV PRN (08:23)
[2018-03-16] MEDS ORDERED: 0.9 % Sodium Chloride 1,000 ML PRIME SCH (08:30)
[2018-03-16] MEDS ORDERED: 0.9 % Sodium Chloride 2,000 ML ONE (11:46)
--- NOTE | 2018-03-16 11:48 | Nephrology Consult Note ---
<Yola Bowser - Last Filed: 03/16/18 14:31> Date of Encounter: 03/16/18 Time of Encounter: 11:36 Assessment and Plan (1) ESRD (end stage renal disease) on dialysis Status: Chronic HD MWF at [facility]. HD today. Continue to avoid nephrotoxins and renal dose all medications. Continue electrolyte replacement, would recommend replacing Magnesium. Unsure of etiology of persistent nausea/vomiting. Pt denies ever having colonoscopy or EGD in the past. (3) CHF (congestive heart failure), NYHA class II Status: Acute Per primary team. Qualifiers: Congestive heart failure type: unspecified Qualified Code(s): I50.9 - Heart failure, unspecified (4) Emesis Status: Acute Per primary team. Qualifiers: Vomiting type: unspecified Vomiting Intractability: unspecified Nausea presence: unspecified Qualified Code(s): R11.10 - Vomiting, unspecified (5) Hypokalemia Status: Acute Resolved 3.6, replace as needed. (7) Generalized weakness Status: Acute Per primary team. History of Present Illness - Reason for Consult Consult date: 03/16/18 end stage renal disease - Chief Complaint nausea/vomiting/weakness - History of Present Illness Mr. Castro is a 53 year old Male that is a patient of Dr. Richter. He is ESRD and goes to [facility] in [place]. Last treatment was Friday03/13/18. PMH: COPD, coronary artery disease, hypertension, and CHF. Pt seen and examined in HD today. Admits to feeling weak & nauseated with clear emesis. States he has been "puking" all night since he was given the PO potassium supplement last night. Has had nausea with emesis at home for 3 weeks. Denies hematemesis, Baudilio blood or melena. Can not attribute the nausea to anything specifically he eats or drinks at home. No change in bowel habits at home. Unsure of etiology of persistent nausea/vomiting, but this could contribute to electrolyte abnormalities upon admission. Past Med Surg Social Fam HX - Past Medical History Medical history: arthritis, CHF, COPD, coronary artery disease, diabetes, dialysis, GERD, hyperlipidemia, hypertension, myocardial infarction, osteoporosis, peripheral artery disease, renal disease, valvular heart disease, other Additional medical history: DM, ESRD 3, CHF, HEROIN USE LAST USE 2012 Psychiatric history: anxiety, depression, other - Past Surgical History Surgical History: non-contributory, vascular surgery, other Additional surgical history: has had port placed and is now removed stated by patient. HD permacath ZE - Social History Smoking Status: Current every day smoker Packs per day: 0.5 Smokeless Tobacco Status: Yes Alcohol use: none Drug use: marijuana - Family History Mother Living Status: Hx Family Cardiac Disorders: Yes Father Adopted: No Living Status: Hx Family Cardiac Disorders: No Hx Family Respiratory Disorders: Yes Hx Family Cancer: Yes Hx Family GI Disorders: Yes Hx Family Endocrine Disorder: No Hx Family Neuromuscular Disorders: No Hx Family Neurologic Disorders: No Hx Family HEENT Disorders: No Hx Family Autoimmune Disorders: No Medications and Allergies Lidocaine Patch [Lidoderm 5% patch] 1 patch TP DAILY 10/02/15 [History] hydrOXYzine HCl [Hydroxyzine HCl] 25 mg PO TID 10/02/15 [History] Isosorbide MONOnitrate (24 HR) [Imdur] 30 mg PO DAILY #30 tab.er.24h 09/03/16 [ Rx] Ergocalciferol (VITAMIN D2) [Vitamin D2] 50,000 unit PO MO 11/03/16 [History] Lisinopril [Zestril] 10 mg PO DAILY 11/03/16 [History] Simvastatin [Zocor] 40 mg PO HS 11/03/16 [History] Tizanidine HCl [Zanaflex] 4 mg PO TID 11/03/16 [History] Ipratropium/Albuterol Sulfate [Combivent Respimat Inhal [place]] 1 puff IH QID 04/28 [History] Aspirin 81 mg PO DAILY #30 tab.chew 11/24/16 [Rx] Tramadol HCl [Ultram] 50 mg PO TID PRN 05/08/17 [History] Carvedilol 12.5 mg PO BID 07/30/17 [History] Potassium Chloride [K-Tab ER] 20 meq PO DAILY 10/18/17 [History] Sertraline [Zoloft] 50 mg PO DAILY 10/18/17 [History] Albuterol Sulfate [Proair Hfa] 2 puff IH Q4H PRN 30 Days hfa.aer.ad 10/21/17 [ Rx] Albuterol Neb [Proventil Neb] 2.5 mg IH Q6H PRN 03/16/18 [History] Calcium Acetate [Phos-LO] 1,334 mg PO TID 03/16/18 [History] Ferrous Sulfate [Iron] 325 mg PO DAILY 03/16/18 [History] Fluticasone/Vilanterol [Breo Ellipta 100-25 Mcg INH] 1 puff IH DAILY 03/16/18 [ History] Gabapentin [Neurontin] 600 mg PO BID 03/16/18 [History] Ondansetron HCl [Zofran] 4 mg PO BID PRN 03/16/18 [History] Tiotropium [Spiriva] 18 mcg IH DAILY 03/16/18 [History] Magnesium Oxide [Mag-Ox] 800 mg PO DAILY #20 tablet 03/20/18 [Rx] Omeprazole [PriLOSEC] 40 mg PO BIDAC #60 capsule. 03/20/18 [Rx] 3 Allergy/AdvReac Type Severity Reaction Status Date / Time bee venom protein (honey bee) AdvReac Swelling Verified 11/05/17 06:11 of Lip/Tongue/Throat potassium AdvReac Vomiting Verified 11/05/17 06:11 prednisone AdvReac Nausea Verified 11/05/17 06:11 Review of Systems ROS unobtainable: other (see HPI) Constitutional: anorexia, fatigue, no chills, no fever(s) Cardiovascular: no chest pain at rest, no chest pain with activity, no dyspnea Gastrointestinal: diarrhea, loose stools, nausea, no abdominal pain, no constipation, no hematemesis, no melena Exam - Vital Signs Vital signs: Initial Vital Signs Temp Pulse Resp BP Pulse Ox 98.2 F 110 20 154/79 99 03/15/18 17:42 03/15/18 17:42 03/15/18 17:42 03/15/18 17:42 03/15/18 17:42 Vital Signs - Last 8 Hours Temp Pulse Resp BP Pulse Ox 03/16/18 07:16 98.3 F 109 18 170/95 100 Intake and Output 03/15/18 03/16/18 03/16/18 23:59 07:59 15:59 Other: Weight 80.6 kg Patient Weight 03/16/18 23:59 Weight 80.6 kg - General Appearance General appearance: chronically ill, frail EENT: ATNC Respiratory: clear Cardiology: edema (Trace to BLE, periorbital edema noted to both eyes. ), normal S1, normal S2 - Dialysis Access Dialysis Vascular Access: Venous Catheter (Left tunneled, DRSG C/D/I/) Gastrointestinal: normoactive bowel sounds, no tenderness, no guarding Integumentary: no rash, warm and dry Neurologic: alert and oriented x3 Psychiatric: mood/affect appropriate, cooperative Results - Lab Results 03/16/18 04:08 03/16/18 04:08 Most recent lab results Calcium 7.4 mg/dL (8.6-10.3) L 03/16/18 04:08 Phosphorus 1.1 mg/dL (2.7-4.5) L 03/16/18 04:08 Magnesium 1.4 mg/dL (1.6-2.6) L 03/16/18 04:08 Consult Discharge Plan - Plan Instructions: Omeprazole (By mouth), Magnesium Oxide (By mouth) Referrals: Nallely Hanna CNP [Primary Care Provider] - 03/26/18 10:00 am (Please follow up as schedule...) Regan Chaves MD [Partnered Physician] - 03/24/18 4:00 pm (Please follow up as schedule..) Prescriptions: Magnesium Oxide [Mag-Ox] 800 mg PO DAILY #20 tablet Omeprazole [PriLOSEC] 40 mg PO BIDAC #60 capsule. <Michael Preciado - Last Filed: 03/23/18 06:49> Date of Encounter: 03/16/18 Exam - Vital Signs Vital signs: Initial Vital Signs Temp Pulse Resp BP Pulse Ox 98.2 F 110 20 154/79 99 03/15/18 17:42 03/15/18 17:42 03/15/18 17:42 03/15/18 17:42 03/15/18 17:42 Results - Lab Results 03/20/18 04:41 03/20/18 04:41 Most recent lab results Calcium 8.2 mg/dL (8.6-10.3) L 03/20/18 04:41 Phosphorus 1.4 mg/dL (2.7-4.5) L 03/19/18 05:26 Magnesium 2.1 mg/dL (1.6-2.6) 03/20/18 04:41 - Attending Attestation I examined this patient and my medical decision-making was reviewed with the Resident Physician/DYE AUTOMATION OPERATOR. I agree with the documented findings, disposition and treatment plan as described except to the extent set forth below. Pt seen and examined on HD this am and in summary; 53 y o male with 3vessesl CAD awaiting surgery, active tobacco use and ESRD on HD (followed by myself at [place] but seen by my associate, Dr Richter 3 weeks ago) admitted with generalized weakness and decreased po intake followed by electrolyte abnormalities with repletion under way. On exam; swollen face and generalized fatigue noted. Continue HD with UF s tolerated. Hold any phos binder and continue to replete phos. GI workup advised.
[2018-03-16] MEDS: Aspirin 81 MG TAB.CHEW PO SCH (14:17)
[2018-03-16] MEDS: Isosorbide MONOnitrate (24 HR) 30 MG TAB.ER.24H PO SCH (16:51)
[2018-03-16] MEDS: BuPROPion SR (12 HR) 150 MG TABLET PO SCH ×2 (16:51→20:49)
--- NOTE | 2018-03-16 17:20 | Electrocardiograph Report ---
[place] [id number] Test Date: 2018-03-15 Pat Name: Steve Castro Department: 103 Room: 2S3 Gender: M [employer] Agent: JASBIR : [id number] Requested By: Opal Sanches Order Number: [id number] Reading MD: Mckayla Beckett Measurements Intervals [place] Rate: 114 P: 3 NE: 84 QRS: 62 QRSD: 85 T: 13 QT: 366 QTc: 434 Interpretive Statements SINUS TACHYCARDIA WITH SHORT NE INTERVAL WITH FREQUENT VENTRICULAR PREMATURE COMPLEXES ABNORMAL RHYTHM ECG Electronically Signed On 03-16-2018 17:19:09 EDT by Mckayla Beckett
[2018-03-17 07:21] LABS: Hemoglobin 8.1 g/dL (12.9-16.9)
[2018-03-17 07:23] LABS: Hematocrit 25.7 % (37.5-50.1); Immature Platelets 7.7 % (1.1-6.1); Mean Corpuscular HGB Conc 31.5 g/dL (31.6-35.5); Mean Corpuscular Hemoglobin 24.5 pg (28.0-33.3); Mean Corpuscular Volume 77.9 fL (83.0-100.0); Red Blood Count 3.3 M/mcL (4.19-5.50); Red Cell Distribution Width 16.7 % (11.5-14.5)
[2018-03-17 07:39] LABS: Calcium 7.6 mg/dL (8.6-10.3); Magnesium 1.8 mg/dL (1.6-2.6); Phosphorous 1.8 mg/dL (2.7-4.5); Potassium 3.5 mEq/L (3.5-5.1)
[2018-03-17] MEDS ORDERED: traMADol 50 MG TABLET PO PRN (07:52)
[2018-03-17 07:54] LABS: Thyroid Stimulating Hormone 1.866 mcIU/mL (0.340-5.600)
[2018-03-17] MEDS: BuPROPion SR (12 HR) 150 MG TABLET PO SCH ×2 (09:53→21:14)
[2018-03-17] MEDS: Aspirin 81 MG TAB.CHEW PO SCH (09:54)
[2018-03-17] MEDS: Magnesium Oxide 400 MG TABLET PO SCH (09:54)
[2018-03-17] MEDS: Isosorbide MONOnitrate (24 HR) 30 MG TAB.ER.24H PO SCH (09:54)
--- NOTE | 2018-03-17 10:55 | Internal Med Progress Note ---
Date of Encounter: 03/17/18 Time of Encounter: 10:50 - Assessment and plan (1) Hyponatremia Current Visit: Yes Status: Acute Assessment and plan: likely related to ESRD. Correct with hemodialysis. Monitor BMP (2) Generalized weakness Current Visit: Yes Status: Acute Assessment and plan: likely 2/2 to dehydration from nausea, vomiting and diarrhea. Replete as needed (3) Hypokalemia Current Visit: Yes Status: Acute Assessment and plan: Trial PO supplement in the ED To get phosnak for low phos (contains K) To adjust dialysate per nephrology - treat with HD (4) Hypomagnesemia Current Visit: Yes Status: Acute Assessment and plan: replete IV Mg (5) COPD (chronic obstructive pulmonary disease) Current Visit: Yes Status: Chronic Assessment and plan: chronic. Not in exacerbation baseline 2 L NC approx Qualifiers: COPD type: unspecified COPD Qualified Code(s): J44.9 - Chronic obstructive pulmonary disease, unspecified (6) Anemia Current Visit: Yes Status: Chronic Assessment and plan: likely 2/2 ESRD TAISHA per nephrology outpatient Qualifiers: Anemia type: due to chronic kidney disease Chronic kidney disease stage: on chronic dialysis Qualified Code(s): N18.6 - End stage renal disease; D63.1 - Anemia in chronic kidney disease; Z99.2 - Dependence on renal dialysis (7) Hypophosphatemia Current Visit: Yes Status: Chronic Assessment and plan: Phosphorus levels are low. We will replete orally (8) ESRD (end stage renal disease) on dialysis Current Visit: Yes Status: Chronic Assessment and plan: gets MWF HD with Dr Acevedo (9) CHF (congestive heart failure), NYHA class II Current Visit: Yes Status: Acute Assessment and plan: Volume overload likely due to ESRD on HD To get UF with HD Continue cardiac med Qualifiers: Congestive heart failure type: unspecified Qualified Code(s): I50.9 - Heart failure, unspecified - Time Spent With Patient Total time spent is greater than 50% in coordination of care (as documented) at patient's floor/unit and/or counseling patient: - Subjective Interval history: No acute events overnight - Constitutional Vitals: Temp Pulse Resp BP Pulse Ox 98.3 F 74 18 101/62 98 03/17/18 06:43 03/17/18 06:43 03/17/18 06:43 03/17/18 06:43 03/17/18 09:55 General appearance: Present: cooperative, A&O X 3, pleasant, obese, answers questions appropriately - Head Head exam: Present: atraumatic, normocephalic - Eye Eye exam: Present: PERRL, conjuntiva pink, sclera anicteric Pupils: Present: PERRL - Neck Neck exam general surgery: Present: supple, trachea midline. Absent: lymphadenopathy - Respiratory Respiratory exam: Present: CTAB. Absent: accessory muscle use, rales, rhonchi, wheezes - Cardiovascular Cardiovascular exam: Present: RRR, +S1, +S2. Absent: diastolic murmur, gallop, rubs, systolic murmur - GI/Abdominal GI/Abdominal exam: Present: normal bowel sounds, soft, no peritoneal signs. Absent: distended, tenderness - Extremities Exam Extremities exam: Present: warm, radial pulses palpable and symmetrical. Absent : calf tenderness, cyanotic, pedal edema - Neurological Exam Neurological exam: Present: CN II-XII intact, oriented X3, no focal deficits. Absent: pronater drift, facial droop, speech deficit - Skin Skin exam: Present: dry, intact Internal Medicine: Result - Labs CBC & Chem 7: 03/17/18 07:03 03/17/18 07:03 Labs: Short CBC 03/17/18 Range/Units 07:03 WBC 7.5 (4.3-11.1) K/mcL Hgb 8.1 L (12.9-16.9) g/dL Hct 25.7 L (37.5-50.1) % Plt Count 110 L (140-400) K/mcL [facility] 03/17/18 07:03 Sodium 129 L Potassium 3.5 Chloride 94 L Carbon Dioxide 25 BUN 12 Creatinine 3.37 H Glucose 98 Calcium 7.6 L Consult Discharge Plan - Plan Referrals: Nallely Hanna, CARAMEL CANDY MAKER HELPER [Primary Care Provider] -
--- NOTE | 2018-03-17 11:09 | Nephrology Progress Note ---
Date of Encounter: 03/17/18 Time of Encounter: 11:07 - Assessment and Plan (1) ESRD (end stage renal disease) on dialysis Current Visit: Yes Status: Chronic ESRD HD MWF at [place]. Continue to renal dose. Replace Phos as needed. (2) CHF (congestive heart failure), NYHA class II Current Visit: Yes Status: Acute Per primary team. Qualifiers: Congestive heart failure type: unspecified Qualified Code(s): I50.9 - Heart failure, unspecified (3) Emesis Current Visit: Yes Status: Acute Resolved. Qualifiers: Vomiting type: unspecified Vomiting Intractability: unspecified Nausea presence: unspecified Qualified Code(s): R11.10 - Vomiting, unspecified (4) Hypokalemia Current Visit: Yes Status: Acute Resolved K 3.5 Subjective Principal diagnosis: abnormal labs Interval history: Pt seen and examined. Patient appears to be feeling better, has eaten breakfast and is not nauseated or had any emesis. Admits to still having diarrhea. Objective - Vital Signs Vital signs: Vital Signs Temp Pulse Resp BP Pulse Ox 03/17/18 09:55 98 03/17/18 06:43 98.3 F 74 18 101/62 98 03/17/18 05:44 70 79/42 03/17/18 04:53 98.7 F 70 16 76/45 94 03/16/18 23:03 99.1 F 84 16 95/61 100 03/16/18 20:59 101/61 03/16/18 19:07 89.9 F L 85 16 92/59 96 03/16/18 15:21 98.5 F 115 18 115/65 100 03/16/18 14:00 98.0 F 20 166/77 03/16/18 13:20 144/74 03/16/18 13:05 171/84 03/16/18 12:50 164/88 03/16/18 12:35 163/87 03/16/18 12:20 157/84 03/16/18 12:05 157/74 03/16/18 11:50 156/84 03/16/18 11:35 146/89 03/16/18 11:20 139/69 Intake and Output 03/16/18 03/17/18 03/17/18 23:59 07:59 15:59 Intake Total 480 / 480 250 / 250 0 / 0 Output Total 0 / 0 Balance 480 / 480 250 / 250 0 / 0 Intake: IV Fluids 250 / 250 0.9 % Sodium Chloride 250 ML @ 250 / 250 937.5 mls/hr IVC .Q16M PRN Rx#: [id number] Oral 480 / 480 0 / 0 Output: Urine 0 / 0 Other: Meal Dinner Breakfast Percent of Meal Consumed 50% 0% # Voids 1 1 Weight 78.9 kg Patient Weight 03/17/18 23:59 Weight 78.9 kg - General Appearance General appearance: Present: chronically ill, frail EENT: Present: ATNC, hearing intact, vision intact Neck: Present: supple Respiratory: Present: clear Cardiology: Present: edema (Trace BLE, improved bilat periorbital edema noted.) , normal S1, normal S2 Dialysis Vascular Access: Venous Catheter (Left Tunneled, DRSG C/D/I/) Gastrointestinal: Present: normoactive bowel sounds, no tenderness, no guarding Integumentary: Present: no rash, warm and dry Neurologic: Present: alert and oriented x3 Psychiatric: Present: mood/affect appropriate, cooperative - Lab 03/17/18 07:03 03/17/18 07:03 Most recent lab results Calcium 7.6 mg/dL (8.6-10.3) L 03/17/18 07:03 Phosphorus 1.8 mg/dL (2.7-4.5) L 03/17/18 07:03 Magnesium 1.8 mg/dL (1.6-2.6) 03/17/18 07:03 Consult Discharge Plan - Plan Referrals: Nallely Hanna BARGE LOADER [Primary Care Provider] -
[2018-03-17 12:25] LABS: C.difficile Toxin A/B by PCR Not detected (Not detect); Campylobacter by PCR Not detected (Not detect); Enteroaggregative E.coli(EAEC) Not detected (Not detect); Plesiomonas shigelloides PCR Not detected (Not detect); Salmonella PCR Not detected (Not detect); Vibrio PCR Not detected (Not detect); Vibrio cholerae PCR Not detected (Not detect); Yersinia enterocolitica PCR Not detected (Not detect)
[2018-03-17 12:26] LABS: Adenovirus F 40/41 PCR Not detected (Not detect); Astrovirus PCR Not detected (Not detect); Cryptosporidium by PCR Not detected (Not detect); Cyclospora cayetanensis PCR Not detected (Not detect); E. coli O157 by PCR Not detected (Not detect); Entamoeba histolytica PCR Not detected (Not detect); Enteropathogenic E.coli(EPEC) Not detected (Not detect); Enterotoxigenic E.coli (ETEC) Not detected (Not detect); Giardia lamblia PCR Not detected (Not detect); Norovirus GI/GII PCR Not detected (Not detect); Rotavirus A PCR Not detected (Not detect); Sapovirus PCR Not detected (Not detect); Shig/EnteroinvasiveE coli EIEC Not detected (Not detect); Shigalike tox-prod E coli STEC Not detected (Not detect)
[2018-03-17] MEDS: Calcium Acetate 667 MG CAPSULE PO SCH ×2 (12:47→16:59)
[2018-03-17] MEDS: *HR* Heparin 5,000 UNIT/ML VIAL SQ SCH (17:02)
[2018-03-17] MEDS: Budesonide/Formoterol 160/4.5 MDI IH SCH (20:00)
[2018-03-18] MEDS: *HR* Heparin 5,000 UNIT/ML VIAL SQ SCH (05:34)
[2018-03-18 06:52] LABS: Basophils % 0.5 %; Eosinophils # 0.1 K/mcL (0.0-0.6); Eosinophils % 1.6 %; Hematocrit 20.8 % (37.5-50.1); Immature Granulocytes % 0.4 % (0-4); Lymphocytes # 2.4 K/mcL (0.6-4.6); Lymphocytes % 43.3 %; Mean Corpuscular HGB Conc 33.7 g/dL (31.6-35.5); Mean Corpuscular Hemoglobin 26.1 pg (28.0-33.3); Mean Corpuscular Volume 77.6 fL (83.0-100.0); Mean Platelet Volume 10.3 fL (9.4-12.4); Monocytes # 0.5 K/mcL (0.0-1.3); Monocytes % 8.4 %; Neutrophils # 2.5 K/mcL (1.6-8.9); Platelet Count 109 K/mcL (140-400); Red Blood Count 2.68 M/mcL (4.19-5.50); Red Cell Distribution Width 16.6 % (11.5-14.5); Segmented Neutrophils % 45.8 %
--- NOTE | 2018-03-18 06:57 | Event Note ---
Date of Encounter: 03/18/18 Time of Encounter: 06:00 Telemetry showed 16 beats of V. tach. Patient was asymptomatic and asleep throughout this event. Patient remained stable after that and returned to normal sinus rhythm. Electrolytes are within normal limits. We will consult cardiology in the morning.
[2018-03-18 07:08] LABS: Calcium 7.5 mg/dL (8.6-10.3); Magnesium 1.8 mg/dL (1.6-2.6); Phosphorous 2.5 mg/dL (2.7-4.5); Potassium 3.2 mEq/L (3.5-5.1)
[2018-03-18] MEDS: Budesonide/Formoterol 160/4.5 MDI IH SCH ×2 (07:24→22:27)
[2018-03-18] MEDS: Tiotropium 18 MCG inhalation IH SCH (07:25)
[2018-03-18] MEDS ORDERED: 0.9 % Sodium Chloride 250 ML IVC PRN (07:42)
[2018-03-18] MEDS ORDERED: *HR* Heparin 10,000 UNIT/10 ML VIAL IV PRN (07:42)
[2018-03-18] MEDS: Magnesium Oxide 400 MG TABLET PO SCH (07:45)
[2018-03-18] MEDS ORDERED: 0.9 % Sodium Chloride 1,000 ML PRIME SCH (07:45)
[2018-03-18] MEDS: Isosorbide MONOnitrate (24 HR) 30 MG TAB.ER.24H PO SCH (07:45)
[2018-03-18] MEDS: Calcium Acetate 667 MG CAPSULE PO SCH ×3 (07:45→16:26)
[2018-03-18] MEDS: Aspirin 81 MG TAB.CHEW PO SCH (07:45)
[2018-03-18] MEDS: BuPROPion SR (12 HR) 150 MG TABLET PO SCH ×2 (07:45→22:31)
--- NOTE | 2018-03-18 08:29 | Cardiology Consult Note ---
Date of Encounter: 03/18/18 Time of Encounter: 08:20 Assessment and Plan (1) Ventricular tachycardia seen on awake overnight monitor Current Visit: Yes Status: Acute Short run of asymptomatic V-tach at 0513 on 04/07/18. No preceding or interim symptoms per patient. Stable vitals. Extensive medical history with poor interval inventory of cardiac status. Has been anorexic for 3 weeks with depleted electrolytes and is acutely anemic within context of ESRD-HD & chronic anemia. This is most likely associated with electrolyte disturbance, anemia, and chronic ischemic disease. Recommendations: - cont telemetry and close monitoring/repletion of electrolytes. - further eval may be warranted for pt's recent PO intake intolerance which is a likely factor in electrolyte depletion. - no specific plan alterations recommended at this time including med changes. (2) Electrolyte depletion Current Visit: Yes Status: Acute Due to poor PO intake over preceding weeks. Includes hypokalemia, hyponatremia , hypomagnesemia, and hypophosphatemia. Discussion w patient/family: The assessment and plan as outlined above was discussed with the patient and/or family members who expressed understanding and agreement. All questions were answered. Thank you for involving us in the care of your patient. Please call with any questions. History of Present Illness Consult date: 03/18/18 Requesting physician: Tisha Rodriguez Consult reason: Singular run of VT in setting of hypomag, hypoK+, and hypo-PO4 History of present illness: Mr. Castro is a 53 year old male with multiple comorbidities including CAD, h/o SC, CHF, HTN, HLP, PAD, COPD, DM, ESRD on HD, and GERD. Presented with fatigue and admitted for multiple electrolyte abnormalities, namely, hyponatremia, hypokalemia, hypomagnesemia, and hypophosphatemia; also has anemia which appears lower than baseline today. Cardiology consulted for brief run of asymptomatic V-tach (16 beats) at 0513 (noted on telemetry). Reviewing event note, this episodic aberrancy self-resolved with no other acute concerns associated. Pt endorses no acute or ongoing cardiac symptoms and was not aware of the run of V-tach. Explicitly denies syncope, lightheadedness, profuse sweats, chest pain, palpitations, acute shortness of breath, or pedal edema. Has had decreased appetite, and post-prandial nausea/vomiting for three weeks and reports very poor PO intake stating he "can't keep anything down." Presently asymptomatic; states his fatigue is better and he is tolerating food this morning so far. Cardiac History: Aug 2016 had LHC revealing severe 3-vessel disease (100% RCA, 70% LAD, 90% circumflex). It was recommended at that time to be evaluated at [facility]. Pt states at some point he did go to [facility], but opted not to pursue CABG. Most recent ECHO (TTE) in April of 2017 demonstrating LVEF of 50-55%, diastolic dysfunction, mild mitral regurgitation, and possible pulm HTN. Past Med Surg Social Fam HX - Past Medical History Attestation: Yes The following information was validated with the patient. Source: patient, old records reviewed Medical history: arthritis, CHF, COPD, coronary artery disease, diabetes, dialysis, GERD, hyperlipidemia, hypertension, myocardial infarction, osteoporosis, peripheral artery disease, renal disease, valvular heart disease, other Additional medical history: DM, ESRD 3, CHF, HEROIN USE LAST USE 2012 Psychiatric history: anxiety, depression, other - Past Surgical History Surgical History: non-contributory, vascular surgery, other Additional surgical history: has had port placed and is now removed stated by patient. HD permacath ZE - Social History Smoking Status: Current every day smoker Packs per day: 0.5 Smokeless Tobacco Status: Yes Alcohol use: none Drug use: marijuana - Family History Mother Living Status: Hx Family Cardiac Disorders: Yes Father Adopted: No Living Status: Hx Family Cardiac Disorders: No Hx Family Respiratory Disorders: Yes Hx Family Cancer: Yes Hx Family GI Disorders: Yes Hx Family Endocrine Disorder: No Hx Family Neuromuscular Disorders: No Hx Family Neurologic Disorders: No Hx Family HEENT Disorders: No Hx Family Autoimmune Disorders: No Medications and Allergies Lidocaine Patch [Lidoderm 5% patch] 1 patch TP DAILY 10/02/15 [History] hydrOXYzine HCl [Hydroxyzine HCl] 25 mg PO TID 10/02/15 [History] Isosorbide MONOnitrate (24 HR) [Imdur] 30 mg PO DAILY #30 tab.er.24h 09/03/16 [ Rx] Ergocalciferol (VITAMIN D2) [Vitamin D2] 50,000 unit PO MO 11/03/16 [History] Lisinopril [Zestril] 10 mg PO DAILY 11/03/16 [History] Simvastatin [Zocor] 40 mg PO HS 11/03/16 [History] Tizanidine HCl [Zanaflex] 4 mg PO TID 11/03/16 [History] Ipratropium/Albuterol Sulfate [Combivent Respimat Inhal [place]] 1 puff IH QID 04/28 [History] Aspirin 81 mg PO DAILY #30 tab.chew 11/24/16 [Rx] Tramadol HCl [Ultram] 50 mg PO TID PRN 05/08/17 [History] Carvedilol 12.5 mg PO BID 07/30/17 [History] Potassium Chloride [K-Tab ER] 20 meq PO DAILY 10/18/17 [History] Sertraline [Zoloft] 50 mg PO DAILY 10/18/17 [History] Albuterol Sulfate [Proair Hfa] 2 puff IH Q4H PRN 30 Days hfa.aer.ad 10/21/17 [ Rx] Albuterol Neb [Proventil Neb] 2.5 mg IH Q6H PRN 03/16/18 [History] Calcium Acetate [Phos-LO] 1,334 mg PO TID 03/16/18 [History] Ferrous Sulfate [Iron] 325 mg PO DAILY 03/16/18 [History] Fluticasone/Vilanterol [Breo Ellipta 100-25 Mcg INH] 1 puff IH DAILY 03/16/18 [ History] Gabapentin [Neurontin] 600 mg PO BID 03/16/18 [History] Ondansetron HCl [Zofran] 4 mg PO BID PRN 03/16/18 [History] Tiotropium [Spiriva] 18 mcg IH DAILY 03/16/18 [History] 3 Allergy/AdvReac Type Severity Reaction Status Date / Time bee venom protein (honey bee) AdvReac Swelling Verified 11/05/17 06:11 of Lip/Tongue/Throat potassium AdvReac Vomiting Verified 11/05/17 06:11 prednisone AdvReac Nausea Verified 11/05/17 06:11 All Systems Review: Positive: fatigue, anorexia, post-prandial nausea/vomiting. Negative: fevers, chills, sweats, myalgias, syncope, presyncope, headache, visual disturbances, chest pain, palpitations, acute shortness of breath, cough , abdominal pain, constipation, diarrhea, blood in vomitus, blood in stools, dysuria, pedal edema, or rash. Physical Examination Vital Signs, Last 4 Hours Temp Pulse Resp BP Pulse Ox 03/18/18 08:11 97.6 F 65 18 101/54 95 03/18/18 07:26 18 95 03/18/18 04:34 97.8 F 62 16 116/63 94 CONSTITUTIONAL: Alert and oriented X3, well-nourished, well appearing, in no apparent distress HEAD: Normocephalic; atraumatic. EYES: PER (3mm), left eye lid appears to have a droop which pt states is not new , no scleral icterus, no drainage, no conjunctival injection NOSE: The nose is normal in appearance without rhinorrhea Oropharynx: pink/moist RESP: NRD without use of accessory musculature, CTA b/l with no wheezes/rales/ rhonchi CARD: Regular rhythm; did not hear any murmurs, rubs, or gallop ABD: grossly normal, soft, non-tender SKIN: normal appearance, no pallor/diaphoresis,mottling,jaundice,cyanosis EXT: DP/Rad pulses 2+ and symmetrical; no pedal edema; no other lesions seen PSYCH: appropriate mood/affect Results 03/18/18 08:39 03/18/18 06:29 Lab Results 03/18/18 03/18/18 06:29 06:29 WBC 5.5 Hgb 7.0 L Hct 20.8 L Plt Count 109 L Sodium 127 L Potassium 3.2 L Chloride 93 L Carbon Dioxide 26 BUN 18 Creatinine 4.08 H Glucose 94 Calcium 7.5 L Magnesium 1.8 Consult Discharge Plan - Plan Referrals: Nallely Hanna, PARK MANAGER [Primary Care Provider] -
[2018-03-18] MEDS ORDERED: 0.9 % Sodium Chloride 1,000 ML ONE (08:47)
[2018-03-18 09:20] LABS: Basophils % 0.6 %; Immature Granulocytes % 0.6 % (0-4); Monocytes % 7.2 %
[2018-03-18 09:22] LABS: Eosinophils # 0.1 K/mcL (0.0-0.6); Eosinophils % 1.7 %; Hematocrit 19.9 % (37.5-50.1); Hemoglobin 6.6 g/dL (12.9-16.9); Immature Platelets 5.5 % (1.1-6.1); Lymphocytes # 2.1 K/mcL (0.6-4.6); Lymphocytes % 38.6 %; Mean Corpuscular HGB Conc 33.2 g/dL (31.6-35.5); Mean Corpuscular Hemoglobin 25.7 pg (28.0-33.3); Mean Corpuscular Volume 77.4 fL (83.0-100.0); Mean Platelet Volume 10.1 fL (9.4-12.4); Monocytes # 0.4 K/mcL (0.0-1.3); Neutrophils # 2.7 K/mcL (1.6-8.9); Platelet Count 111 K/mcL (140-400); Red Blood Count 2.57 M/mcL (4.19-5.50); Red Cell Distribution Width 16.7 % (11.5-14.5); Segmented Neutrophils % 51.3 %
[2018-03-18] MEDS ORDERED: Albumin 25% 12.5gm/50mL 25.0 GM/100 ML IV.SOLN ONE (09:32)
--- NOTE | 2018-03-18 09:51 | Nephrology Progress Note ---
Date of Encounter: 03/18/18 Time of Encounter: 09:48 - Assessment and Plan (1) ESRD (end stage renal disease) on dialysis Current Visit: Yes Status: Chronic ESRD HD MWF at [place]. Continue to renal dose all medications. Replace K with existing PO order. (2) Anemia Current Visit: Yes Status: Chronic Goal Hgb 10-11. Hgb 7 this morning and repeat was 6.6. While examining in HD, UF was stopped due to BP of 83/50. 2 units PRBCS ordered. Qualifiers: Anemia type: due to chronic kidney disease Chronic kidney disease stage: on chronic dialysis Qualified Code(s): N18.6 - End stage renal disease; D63.1 - Anemia in chronic kidney disease; Z99.2 - Dependence on renal dialysis (3) CHF (congestive heart failure), NYHA class II Current Visit: Yes Status: Acute Per primary team. Qualifiers: Congestive heart failure type: unspecified Qualified Code(s): I50.9 - Heart failure, unspecified (4) Emesis Current Visit: Yes Status: Acute Resolved. Qualifiers: Vomiting type: unspecified Vomiting Intractability: unspecified Nausea presence: unspecified Qualified Code(s): R11.10 - Vomiting, unspecified (5) Hypokalemia Current Visit: Yes Status: Acute 3.2 today, please replace. (6) Diarrhea Current Visit: Yes Status: Acute Has been going on for 3 weeks at home. All stool specimens were Negative. Qualifiers: Diarrhea type: unspecified type Qualified Code(s): R19.7 - Diarrhea, unspecified Subjective Principal diagnosis: abnormal labs Interval history: Pt seen and examined during hemodialysis. Denies nausea/vomiting. Admits to diarrhea. Objective - Vital Signs Vital signs: Vital Signs Temp Pulse Resp BP Pulse Ox 03/18/18 08:11 97.6 F 65 18 101/54 95 03/18/18 07:26 18 95 03/18/18 04:34 97.8 F 62 16 116/63 94 03/18/18 00:15 98.1 F 63 18 92/52 94 03/17/18 20:30 97.8 F 73 18 115/66 99 03/17/18 20:00 18 99 03/17/18 14:57 98.3 F 73 17 101/59 96 03/17/18 11:52 98.3 F 81 17 77/47 92 03/17/18 09:55 98 Intake and Output 03/17/18 03/18/18 03/18/18 23:59 07:59 15:59 Intake Total 250 / 250 120 / 120 Output Total 0 / 0 Balance 250 / 250 120 / 120 Intake: Oral 240 / 240 120 / 120 Other 10 / 10 Output: Urine 0 / 0 Other: Meal Dinner Percent of Meal Consumed 100% - General Appearance General appearance: Present: chronically ill, frail EENT: Present: ATNC, hearing intact, vision intact Neck: Present: supple Respiratory: Present: clear Cardiology: Present: edema (Bilat periorbital edema noted.), normal S1, normal S2 Dialysis Vascular Access: Venous Catheter (Tunneled Left chest, DRSG C/D/I.) Gastrointestinal: Present: normoactive bowel sounds, no tenderness, no guarding Integumentary: Present: no rash, warm and dry Neurologic: Present: alert and oriented x3 Psychiatric: Present: mood/affect appropriate, cooperative - Lab 03/18/18 08:39 03/18/18 06:29 Most recent lab results Calcium 7.5 mg/dL (8.6-10.3) L 03/18/18 06:29 Phosphorus 2.5 mg/dL (2.7-4.5) L 03/18/18 06:29 Magnesium 1.8 mg/dL (1.6-2.6) 03/18/18 06:29 Consult Discharge Plan - Plan Referrals: Nallely Hanna, MEKHI [Primary Care Provider] -
[2018-03-18] MEDS ORDERED: Albumin 25% 25gram/100mL 25 GM/100 ML IV.SOLN IVPB ONE (09:54)
--- NOTE | 2018-03-18 10:29 | Internal Med Progress Note ---
Date of Encounter: 03/18/18 Time of Encounter: 10:30 - Assessment and plan (1) Anemia Current Visit: Yes Status: Chronic Assessment and plan: r/o GI bleed. Hemglobin dropped to 6.6 this am from 9. on admission. Will transfuse 2 units PRBC. Started on BID protonix. Hold aspirin. GI consulted for EGD/ colonosocopy Qualifiers: Anemia type: due to chronic kidney disease Chronic kidney disease stage: on chronic dialysis Qualified Code(s): N18.6 - End stage renal disease; D63.1 - Anemia in chronic kidney disease; Z99.2 - Dependence on renal dialysis (2) ESRD (end stage renal disease) on dialysis Current Visit: Yes Status: Chronic Assessment and plan: gets MWF HD with Dr Acevedo (3) Hyponatremia Current Visit: Yes Status: Acute Assessment and plan: likely related to ESRD and anorexia/ diarrhea. Correct with hemodialysis and nutrition. Monitor BMP (4) Generalized weakness Current Visit: Yes Status: Acute Assessment and plan: likely 2/2 to dehydration from nausea, vomiting and diarrhea. Replete as needed (5) Hypokalemia Current Visit: Yes Status: Acute Assessment and plan: Replace with po potassium. To get phosnak for low phos (contains K) To adjust dialysate per nephrology - treat with HD (6) Hypomagnesemia Current Visit: Yes Status: Acute Assessment and plan: replete IV Mg (7) COPD (chronic obstructive pulmonary disease) Current Visit: Yes Status: Chronic Assessment and plan: chronic. Not in exacerbation baseline 2 L NC approx Qualifiers: COPD type: unspecified COPD Qualified Code(s): J44.9 - Chronic obstructive pulmonary disease, unspecified (8) Hypophosphatemia Current Visit: Yes Status: Chronic Assessment and plan: Phosphorus levels are low. We will replete orally (9) CHF (congestive heart failure), NYHA class II Current Visit: Yes Status: Acute Assessment and plan: Volume overload likely due to ESRD on HD To get UF with HD Continue cardiac med Qualifiers: Congestive heart failure type: unspecified Qualified Code(s): I50.9 - Heart failure, unspecified - Time Spent With Patient Total time spent is greater than 50% in coordination of care (as documented) at patient's floor/unit and/or counseling patient: - Subjective Interval history: No acute events overnight - Constitutional Vitals: Temp Pulse Resp BP Pulse Ox 97.6 F 65 18 101/54 95 03/18/18 08:11 03/18/18 08:11 03/18/18 08:11 03/18/18 08:11 03/18/18 08:11 General appearance: Present: cooperative, A&O X 3, pleasant, obese, answers questions appropriately - Head Head exam: Present: atraumatic, normocephalic - Eye Eye exam: Present: PERRL, conjuntiva pink, sclera anicteric Pupils: Present: PERRL - Neck Neck exam general surgery: Present: supple, trachea midline. Absent: lymphadenopathy - Respiratory Respiratory exam: Present: CTAB. Absent: accessory muscle use, rales, rhonchi, wheezes - Cardiovascular Cardiovascular exam: Present: RRR, +S1, +S2. Absent: diastolic murmur, gallop, rubs, systolic murmur - GI/Abdominal GI/Abdominal exam: Present: normal bowel sounds, soft, no peritoneal signs. Absent: distended, tenderness - Extremities Exam Extremities exam: Present: warm, radial pulses palpable and symmetrical. Absent : calf tenderness, cyanotic, pedal edema - Neurological Exam Neurological exam: Present: CN II-XII intact, oriented X3, no focal deficits. Absent: pronater drift, facial droop, speech deficit - Skin Skin exam: Present: dry, intact Internal Medicine: Result - Labs CBC & Chem 7: 03/18/18 08:39 03/18/18 06:29 Labs: Short CBC 03/18/18 03/18/18 Range/Units 06:29 08:39 WBC 5.5 5.3 (4.3-11.1) K/mcL Hgb 7.0 L 6.6 L (12.9-16.9) g/dL Hct 20.8 L 19.9 L (37.5-50.1) % Plt Count 109 L 111 L (140-400) K/mcL Neutrophils # 2.5 2.7 (1.6-8.9) K/mcL BMP 03/18/18 06:29 Sodium 127 L Potassium 3.2 L Chloride 93 L Carbon Dioxide 26 BUN 18 Creatinine 4.08 H Glucose 94 Calcium 7.5 L Consult Discharge Plan - Plan Referrals: Nallely Hanna, BAFFLE INSTALLER [Primary Care Provider] -
[2018-03-18] MEDS ORDERED: Potassium Chloride Elixir 20 MEQ/15 ML UDC PO ONE (11:41)
--- NOTE | 2018-03-18 13:58 | Gastroenterology Consult Note ---
<StocktonNatanael cordon Jessica - Last Filed: 03/18/18 13:56> Date of Encounter: 03/18/18 Time of Encounter: 10:50 - Assessment and plan (1) Anemia Current Visit: No Status: Chronic Assessment and plan: Hgb on admission was 9.1 and this AM Hgb 6.6. His basline Hgb is 8-10. Continue to monitor CBC and transfuse PRBC as needed. Plan for EGD and colonoscopy tomorrow. Clear liquid diet today, no red or purple. NPO at midnight. If not clear by 6 AM, give 2 tap water enemas. Qualifiers: Anemia type: due to chronic kidney disease Chronic kidney disease stage: on chronic dialysis Qualified Code(s): N18.6 - End stage renal disease; D63.1 - Anemia in chronic kidney disease; D63.1 - Anemia in chronic kidney disease; Z99.2 - Dependence on renal dialysis; Z99.2 - Dependence on renal dialysis; Z99.2 - Dependence on renal dialysis; Z99.2 - Dependence on renal dialysis (2) ESRD (end stage renal disease) on dialysis Current Visit: No Status: Chronic - Time Spent With Patient Total time spent is greater than 50% in coordination of care (as documented) at patient's floor/unit and/or counseling patient: GI History of Present Illness - Data of Consult Patient: new to practice Consult date: 03/18/18 Requesting Physician: Kiko Joe MD - Consult Narrative Reason for consult: anemia, r/o GI bleed History of present illness: Mr. Castro is a 53 year old male with PMHx of arthritis, CHF, COPD, CAD, ESRD on hemodialysis, GERD, HLD, HTN, PA, who presented to the ED with complaints of fatigue. States over the last several weeks, he has been getting more weak. States they have drawn his labs at dialysis and state he needs to come in because his "blood levels are low". He denies fever, chills, chest pain, abdominal pain, nausea, vomiting. We were consulted to evaluate his anemia and possible GI bleed. Hgb on admission was 9.1 and this AM Hgb 6.6. His basline Hgb is 8-10. Procedures: None NSAIDs: ASA Anticoagulation: None Past Med Surg Social Fam HX - Past Medical History Medical history: arthritis, CHF, COPD, coronary artery disease, diabetes, dialysis, GERD, hyperlipidemia, hypertension, myocardial infarction, osteoporosis, peripheral artery disease, renal disease, valvular heart disease, other Additional medical history: DM, ESRD 3, CHF, HEROIN USE LAST USE 2012 Psychiatric history: anxiety, depression, other - Past Surgical History Surgical History: non-contributory, vascular surgery, other Additional surgical history: has had port placed and is now removed stated by patient. HD permacath ZE - Social History Smoking Status: Current every day smoker Packs per day: 0.5 Smokeless Tobacco Status: Yes Alcohol use: none Drug use: marijuana - Family History Mother Living Status: Hx Family Cardiac Disorders: Yes Father Adopted: No Living Status: Hx Family Cardiac Disorders: No Hx Family Respiratory Disorders: Yes Hx Family Cancer: Yes Hx Family GI Disorders: Yes Hx Family Endocrine Disorder: No Hx Family Neuromuscular Disorders: No Hx Family Neurologic Disorders: No Hx Family HEENT Disorders: No Hx Family Autoimmune Disorders: No - Gastrointestinal Gastrointestinal: Present: as per HPI - Constitutional Constitutional: as per HPI - EENT Eyes: as per HPI Ears: Present: as per HPI Nose, mouth and throat: Present: as per HPI - Cardiovascular Cardiovascular ROS: Present: as per HPI - Respiratory Respiratory IM: Present: as per HPI - Genitourinary Genitourinary: Absent: change in color, Urinary frequency - Neurological ROS Neurological GI: Present: as per HPI - Hematologic/Lymphatic Hematologic/Lymphatic pediatric: Present: as per HPI - Musculoskeletal Musculoskeletal ROS GI: Present: as per HPI - Integumentary Integumentary GI: Present: as per HPI - Psychiatric ROS Psychiatric GI: Present: as per HPI - Endocrine Endocrine IM: Present: as per HPI - Constitutional Vitals: Temp Pulse Resp BP Pulse Ox 97.1 F L 88 16 119/54 95 03/18/18 12:05 03/18/18 12:05 03/18/18 12:05 03/18/18 12:05 03/18/18 08:11 General appearance: Present: cooperative, A&O X 3, no acute distress, answers questions appropriately - Head Head exam: Present: atraumatic, normocephalic - Eye Eye exam: Present: normal appearance, sclera anicteric - ENT ENT exam: Present: mucous membranes dry - Neck Neck exam general surgery: Present: normal inspection, trachea midline - Respiratory Respiratory exam: Present: decreased breath sounds, CTAB. Absent: rales, rhonchi - Cardiovascular Cardiovascular exam: Present: RRR, +S1, +S2 - GI/Abdominal GI/Abdominal exam: Present: soft, no peritoneal signs. Absent: distended, firm , guarding, tenderness Additional comments: obese - Rectal Rectal exam: Present: deferred - Extremities Exam Extremities exam: Present: warm - Neurological Exam Neurological exam: Present: no focal deficits - Psychiatric Psychiatric exam: Present: normal affect, normal mood - Skin Skin exam: Present: dry, intact, normal color, warm - Other Additional findings: Left chest dialysis catheter. Results - Labs CBC & Chem 7: 03/18/18 08:39 03/18/18 06:29 Labs: Last Result Calcium 7.5 mg/dL (8.6-10.3) L 03/18/18 06:29 Entire Visit Hgb 6.6 g/dL (12.9-16.9) L 03/18/18 08:39 Hct 19.9 % (37.5-50.1) L 03/18/18 08:39 Consult Discharge Plan - Plan Referrals: Nallely Hanna, [employer]DER [Primary Care Provider] - (please call for an appt. upon discharge) <Regan Chaves - Last Filed: 03/18/18 17:39> Date of Encounter: 03/18/18 Time of Encounter: 17:30 - Time Spent With Patient Total time spent is greater than 50% in coordination of care (as documented) at patient's floor/unit and/or counseling patient: GI History of Present Illness - Data of Consult Requesting Physician: Kiko Joe MD - Consult Narrative History of present illness: Mr. Castro is a 53 year old male - Constitutional Vitals: Temp Pulse Resp BP Pulse Ox 98.2 F 77 14 143/66 100 03/18/18 16:15 03/18/18 16:15 03/18/18 16:15 03/18/18 16:15 03/18/18 16:15 Results - Labs CBC & Chem 7: 03/18/18 08:39 03/18/18 06:29 Labs: Last Result Calcium 7.5 mg/dL (8.6-10.3) L 03/18/18 06:29 Entire Visit Hgb 6.6 g/dL (12.9-16.9) L 03/18/18 08:39 Hct 19.9 % (37.5-50.1) L 03/18/18 08:39 - Attending Attestation I have personally performed a face to face evaluation on this patient. I have reviewed and agree with the care plan. History and Exam by me shows: Patient seen no active issues. Patient with multiple comorbidities including end-stage renal disease on dialysis now with anemia. Rec: EGD colonoscopy to rule out GI causes for his anemia
[2018-03-18] MEDS: Pantoprazole 40 MG VIAL IVP SCH (16:27)
[2018-03-18] MEDS ORDERED: Polyethylene Glycol 3350 255 GM POWDER PO ONE (17:00)
[2018-03-19 05:52] LABS: Basophils % 0.6 %; Eosinophils # 0.1 K/mcL (0.0-0.6); Eosinophils % 1.4 %; Hematocrit 26.6 % (37.5-50.1); Immature Granulocytes % 0.5 % (0-4); Lymphocytes # 1.8 K/mcL (0.6-4.6); Lymphocytes % 28.4 %; Mean Corpuscular HGB Conc 32.7 g/dL (31.6-35.5); Mean Corpuscular Hemoglobin 25.5 pg (28.0-33.3); Mean Platelet Volume 9.6 fL (9.4-12.4); Monocytes # 0.6 K/mcL (0.0-1.3); Monocytes % 8.9 %; Neutrophils # 3.8 K/mcL (1.6-8.9); Platelet Count 118 K/mcL (140-400); Red Blood Count 3.41 M/mcL (4.19-5.50); Red Cell Distribution Width 15.9 % (11.5-14.5); Segmented Neutrophils % 60.2 %
[2018-03-19 05:54] LABS: Hemoglobin 8.7 g/dL (12.9-16.9)
[2018-03-19 06:00] LABS: Calcium 7.9 mg/dL (8.6-10.3); Magnesium 2.2 mg/dL (1.6-2.6); Phosphorous 1.4 mg/dL (2.7-4.5); Potassium 3.7 mEq/L (3.5-5.1)
[2018-03-19] MEDS: Pantoprazole 40 MG VIAL IVP SCH ×2 (06:00→16:58)
[2018-03-19] MEDS: Budesonide/Formoterol 160/4.5 MDI IH SCH ×2 (07:55→19:46)
[2018-03-19] MEDS: Tiotropium 18 MCG inhalation IH SCH (07:55)
[2018-03-19] MEDS: Magnesium Oxide 400 MG TABLET PO SCH (08:17)
[2018-03-19] MEDS: Calcium Acetate 667 MG CAPSULE PO SCH ×2 (08:17→12:33)
[2018-03-19] MEDS: Isosorbide MONOnitrate (24 HR) 30 MG TAB.ER.24H PO SCH (08:17)
[2018-03-19] MEDS: BuPROPion SR (12 HR) 150 MG TABLET PO SCH ×2 (08:17→22:39)
--- NOTE | 2018-03-19 09:26 | Internal Med Progress Note ---
Date of Encounter: 03/19/18 Time of Encounter: 09:30 - Assessment and plan (1) Anemia Current Visit: Yes Status: Chronic Assessment and plan: r/o GI bleed. Hemglobin dropped to 6.6 from 9. on admission. He is s/p 2 units PRBC. Started on BID protonix. Hold aspirin. Plan for EGD/ Colonoscopy this am Qualifiers: Anemia type: due to chronic kidney disease Chronic kidney disease stage: on chronic dialysis Qualified Code(s): N18.6 - End stage renal disease; D63.1 - Anemia in chronic kidney disease; Z99.2 - Dependence on renal dialysis (2) ESRD (end stage renal disease) on dialysis Current Visit: Yes Status: Chronic Assessment and plan: gets MWF HD (3) Hyponatremia Current Visit: Yes Status: Acute Assessment and plan: likely related to ESRD and anorexia/ diarrhea. Correct with hemodialysis and nutrition. Monitor BMP (4) Generalized weakness Current Visit: Yes Status: Acute Assessment and plan: likely 2/2 to dehydration from nausea, vomiting and diarrhea. Replete as needed (5) Hypokalemia Current Visit: Yes Status: Acute Assessment and plan: Replace with po potassium. To get phosnak for low phos (contains K) To adjust dialysate per nephrology - treat with HD (6) Hypomagnesemia Current Visit: Yes Status: Acute Assessment and plan: replete IV Mg (7) COPD (chronic obstructive pulmonary disease) Current Visit: Yes Status: Chronic Assessment and plan: chronic. Not in exacerbation baseline 2 L NC approx Qualifiers: COPD type: unspecified COPD Qualified Code(s): J44.9 - Chronic obstructive pulmonary disease, unspecified (8) Hypophosphatemia Current Visit: Yes Status: Chronic Assessment and plan: Phosphorus levels are low. We will replete orally (9) CHF (congestive heart failure), NYHA class II Current Visit: Yes Status: Acute Assessment and plan: Volume overload likely due to ESRD on HD To get UF with HD Continue cardiac med Qualifiers: Congestive heart failure type: unspecified Qualified Code(s): I50.9 - Heart failure, unspecified - Time Spent With Patient Total time spent is greater than 50% in coordination of care (as documented) at patient's floor/unit and/or counseling patient: - Subjective Interval history: No acute events overnight - Constitutional Vitals: Temp Pulse Resp BP Pulse Ox 97.8 F 70 18 129/76 94 03/19/18 08:09 03/19/18 08:09 03/19/18 08:09 03/19/18 08:09 03/19/18 08:49 General appearance: Present: cooperative, A&O X 3, pleasant, obese, answers questions appropriately - Head Head exam: Present: atraumatic, normocephalic - Eye Eye exam: Present: PERRL, conjuntiva pink, sclera anicteric Pupils: Present: PERRL - Neck Neck exam general surgery: Present: supple, trachea midline. Absent: lymphadenopathy - Respiratory Respiratory exam: Present: CTAB. Absent: accessory muscle use, rales, rhonchi, wheezes - Cardiovascular Cardiovascular exam: Present: RRR, +S1, +S2. Absent: diastolic murmur, gallop, rubs, systolic murmur - GI/Abdominal GI/Abdominal exam: Present: normal bowel sounds, soft, no peritoneal signs. Absent: distended, tenderness - Extremities Exam Extremities exam: Present: warm, radial pulses palpable and symmetrical. Absent : calf tenderness, cyanotic, pedal edema - Neurological Exam Neurological exam: Present: CN II-XII intact, oriented X3, no focal deficits. Absent: pronater drift, facial droop, speech deficit - Skin Skin exam: Present: dry, intact Internal Medicine: Result - Labs CBC & Chem 7: 03/19/18 05:26 03/19/18 05:26 Labs: Short CBC 03/18/18 03/19/18 Range/Units 08:39 05:26 WBC 5.3 6.3 (4.3-11.1) K/mcL Hgb 6.6 L 8.7 L D (12.9-16.9) g/dL Hct 19.9 L 26.6 L (37.5-50.1) % Plt Count 111 L 118 L (140-400) K/mcL Neutrophils # 2.7 3.8 (1.6-8.9) K/mcL BMP 03/19/18 05:26 Sodium 131 L Potassium 3.7 Chloride 99 Carbon Dioxide 26 BUN 8 Creatinine 2.49 H Glucose 87 Calcium 7.9 L Consult Discharge Plan - Plan Referrals: Nallely Hanna, [employer] [Primary Care Provider] - (please call for an appt. upon discharge)
--- NOTE | 2018-03-19 10:31 | Anesthesia Evaluation PreOp ---
Date of Encounter: 03/19/18 Time of Encounter: 10:29 - Past History Planned Operation: EGD/Colonoscopy Cardiac History: DC, CHF, HTN, Hyperlipidemia, Arrhythmia (16 beat episode of ventricular tachycardia.), Cardiac Surgery (recommended 2015,), Other (PAD, Severe 3 vessle CAD) Pulmonary History: Smoker, Pack/yr (1ppd), COPD MANAGER INVENTORY MANAGEMENT History: Other (Anxiety/Depression) Other Medical History: Renal (ESRD), Diabetes Type II, GERD Anesthesia History: No Prior Anesthetic Complications, Past Anesthesia ( vascular sx, port placement) Alcohol Use: none Drug use: marijuana Medications and Allergies Lidocaine Patch [Lidoderm 5% patch] 1 patch TP DAILY 10/02/15 [History] hydrOXYzine HCl [Hydroxyzine HCl] 25 mg PO TID 10/02/15 [History] Isosorbide MONOnitrate (24 HR) [Imdur] 30 mg PO DAILY #30 tab.er.24h 09/03/16 [ Rx] Ergocalciferol (VITAMIN D2) [Vitamin D2] 50,000 unit PO MO 11/03/16 [History] Lisinopril [Zestril] 10 mg PO DAILY 11/03/16 [History] Simvastatin [Zocor] 40 mg PO HS 11/03/16 [History] Tizanidine HCl [Zanaflex] 4 mg PO TID 11/03/16 [History] Ipratropium/Albuterol Sulfate [Combivent Respimat Inhal [place]] 1 puff IH QID 04/28 [History] Aspirin 81 mg PO DAILY #30 tab.chew 11/24/16 [Rx] Tramadol HCl [Ultram] 50 mg PO TID PRN 05/08/17 [History] Carvedilol 12.5 mg PO BID 07/30/17 [History] Potassium Chloride [K-Tab ER] 20 meq PO DAILY 10/18/17 [History] Sertraline [Zoloft] 50 mg PO DAILY 10/18/17 [History] Albuterol Sulfate [Proair Hfa] 2 puff IH Q4H PRN 30 Days hfa.aer.ad 10/21/17 [ Rx] Albuterol Neb [Proventil Neb] 2.5 mg IH Q6H PRN 03/16/18 [History] Calcium Acetate [Phos-LO] 1,334 mg PO TID 03/16/18 [History] Ferrous Sulfate [Iron] 325 mg PO DAILY 03/16/18 [History] Fluticasone/Vilanterol [Breo Ellipta 100-25 Mcg INH] 1 puff IH DAILY 03/16/18 [ History] Gabapentin [Neurontin] 600 mg PO BID 03/16/18 [History] Ondansetron HCl [Zofran] 4 mg PO BID PRN 03/16/18 [History] Tiotropium [Spiriva] 18 mcg IH DAILY 03/16/18 [History] 3 Allergy/AdvReac Type Severity Reaction Status Date / Time bee venom protein (honey bee) AdvReac Swelling Verified 11/05/17 06:11 of Lip/Tongue/Throat potassium AdvReac Vomiting Verified 11/05/17 06:11 prednisone AdvReac Nausea Verified 11/05/17 06:11 - Meds/Allergy Pre-op Review Medications Reviewed: Yes Allergies Reviewed: Yes Beta Blockers on Current Med List: Yes If Beta Blockers taken, Date/Time (Last Dose taken): 08:17 03/19/2018 Anesthesia Results - Labs 03/19/18 05:26 03/19/18 05:26 Name: Steve Castro Date of Study: 05/14/2017 Impressions: No intracardiac source of bacteremia. LVEF 50%. Moderate mitral regurgitation with restricted motion of the posterior mitral valve leaflet. Mild plaque of the descending aorta. - Imaging EKG: report reviewed (SINUS TACHYCARDIA WITH SHORT AL INTERVAL WITH FREQUENT VENTRICULAR PREMATURE COMPLEXES) Anesthesia Exam Vital Signs/O2 Sat, Most Current Temp Pulse Resp BP Pulse Ox 97.8 F 70 18 129/76 94 03/19/18 08:09 03/19/18 08:09 03/19/18 08:09 03/19/18 08:09 03/19/18 08:49 - HEENT Pupil (Motor): Pupils equal, EOMI Mallampati: III Teeth: Edentulous Denture Type: Upper: Complete, Lower: Complete Oral Opening: Greater than 3 - MANAGER INVENTORY MANAGEMENT LOC: Oriented MANAGER INVENTORY MANAGEMENT Motor: Normal RUE, Normal LUE, Normal RLE, Normal LLE, Normal Face MANAGER INVENTORY MANAGEMENT Sensory: Normal: RUE, LUE, RLE, LLE, Face - Cardiac Rhythm: Regular Murmur: None JVD: No Carotid Bruit: No - Pulmonary Breath Sounds: bilateral Clear Respiratory Effort: Symmetrical Anesthesia Assess/Plan ASA Score: 4 Modified [place] Scale for Level of Consciousness: Cooperative, oriented, and tranquil Anesthetic Plan: MAC Autologous Blood: Yes Monitoring Plan: Standard Monitors Recovery Plan: Other
--- NOTE | 2018-03-19 10:31 | Nephrology Progress Note ---
<Kathy Groves - Last Filed: 03/19/18 10:33> Date of Encounter: 03/19/18 Time of Encounter: 10:29 - Assessment and Plan (1) ESRD (end stage renal disease) on dialysis Current Visit: Yes Status: Chronic Plan for HD tomorrow Continue renal diet when diet resumed Avoid nephrotoxins if possible (2) Anemia Current Visit: Yes Status: Chronic Hgb 8.7 s/p 2 units PRBCs Going for EGD and colonoscopy today per GI team Qualifiers: Anemia type: due to chronic kidney disease Chronic kidney disease stage: on chronic dialysis Qualified Code(s): N18.6 - End stage renal disease; D63.1 - Anemia in chronic kidney disease; Z99.2 - Dependence on renal dialysis (3) CHF (congestive heart failure), NYHA class II Current Visit: Yes Status: Acute per primary team Qualifiers: Congestive heart failure type: unspecified Qualified Code(s): I50.9 - Heart failure, unspecified Subjective Principal diagnosis: abnormal labs Interval history: Patient seen and examined. Going for EGD and colonoscopy today Objective - Vital Signs Vital signs: Vital Signs Temp Pulse Resp BP Pulse Ox 03/19/18 08:49 94 03/19/18 08:09 97.8 F 70 18 129/76 94 03/19/18 07:55 16 93 03/19/18 05:02 97.9 F 62 14 153/81 98 03/18/18 22:27 17 92 03/18/18 22:04 98.6 F 72 17 160/92 96 03/18/18 16:15 98.2 F 77 14 143/66 100 03/18/18 13:30 97.2 F L 18 129/72 03/18/18 12:30 119/65 03/18/18 12:15 112/66 03/18/18 12:05 97.1 F L 88 16 119/54 03/18/18 12:00 112/64 03/18/18 11:54 97.2 F L 84 16 114/64 03/18/18 11:45 109/61 03/18/18 11:39 97.2 F L 66 18 112/63 03/18/18 11:33 97.2 F L 66 18 116/62 03/18/18 11:30 111/54 03/18/18 11:24 97.2 F L 70 16 111/94 03/18/18 11:15 112/60 03/18/18 11:09 97 F L 68 17 122/46 03/18/18 11:00 119/62 03/18/18 10:45 106/59 03/18/18 10:30 125/58 Intake and Output 03/18/18 03/19/18 03/19/18 23:59 07:59 15:59 Intake Total 10 / 10 0 / 0 0 / 0 Output Total 0 / 0 Balance 10 10 0 / 0 0 / 0 Intake: Oral 0 / 0 0 / 0 0 / 0 Other Output: Urine 0 / 0 Other: Meal Lunch Percent of Meal Consumed 85% Stool Consistency loose liquid Stool Color White # Bowel Movements 1 - General Appearance General appearance: Present: chronically ill EENT: Present: ATNC, mucous membranes moist, hearing intact, vision intact Neck: Present: supple Respiratory: Present: clear Cardiology: Present: edema, normal S1, normal S2 Dialysis Vascular Access: Venous Catheter Gastrointestinal: Present: no tenderness, no guarding Integumentary: Present: warm and dry Neurologic: Present: alert and oriented x3 Psychiatric: Present: mood/affect appropriate, cooperative - Lab 03/19/18 05:26 03/19/18 05:26 Most recent lab results Calcium 7.9 mg/dL (8.6-10.3) L 03/19/18 05:26 Phosphorus 1.4 mg/dL (2.7-4.5) L 03/19/18 05:26 Magnesium 2.2 mg/dL (1.6-2.6) 03/19/18 05:26 Consult Discharge Plan - Plan Referrals: Nallely Hanna, REH[employer] OFFICE COORDINATOR [Primary Care Provider] - (please call for an appt. upon discharge) <Michael Preciado - Last Filed: 03/19/18 14:48> Date of Encounter: 03/19/18 Objective - Vital Signs Vital signs: Vital Signs Temp Pulse Resp BP Pulse Ox 03/19/18 14:06 71 18 175/98 96 03/19/18 11:19 98.4 F 72 18 139/73 97 03/19/18 08:49 94 03/19/18 08:09 97.8 F 70 18 129/76 94 03/19/18 07:55 16 93 03/19/18 05:02 97.9 F 62 14 153/81 98 03/18/18 22:27 17 92 03/18/18 22:04 98.6 F 72 17 160/92 96 03/18/18 16:15 98.2 F 77 14 143/66 100 Intake and Output 03/18/18 03/19/18 03/19/18 23:59 07:59 15:59 Intake Total 10 / 10 0 / 0 0 / 0 Output Total 0 / 0 Balance 10 / 10 0 / 0 0 / 0 Intake: Oral 0 / 0 0 / 0 0 / 0 Other 10 Output: Urine 0 / 0 Other: Meal Lunch Percent of Meal Consumed 85% Stool Consistency loose liquid Stool Color White # Bowel Movements 1 - Lab 03/19/18 05:26 03/19/18 05:26 Most recent lab results Calcium 7.9 mg/dL (8.6-10.3) L 03/19/18 05:26 Phosphorus 1.4 mg/dL (2.7-4.5) L 03/19/18 05:26 Magnesium 2.2 mg/dL (1.6-2.6) 03/19/18 05:26 - Attending Attestation I examined this patient and my medical decision-making was reviewed with the Resident Physician/REHAB OFFICE COORDINATOR. I agree with the documented findings, disposition and treatment plan as described except to the extent set forth below. Pt seen and examined s/p HD with transfusion 2units of pRBCs yesterday, EGD/ colonscopy planned today. Hgb improved at 8.7 from 6.6. On exam appears pale and fatigued. Decresed LE edema bilat noted. Next HD planned tomorrow with 3k bath. Will continue to hold all phos binders and replete phos. Potassium normalized
--- NOTE | 2018-03-19 10:59 | Event Note ---
Date of Encounter: 03/19/18 Time of Encounter: 10:55 - Cardiology Event Note TTE shows mild decrease in LVEF (45%), but otherwise consistent findings compared to previous studies. We will arrange OP follow up. Other recommendations stand; maintain mag >2, maintain K+ >4, cont ASA, BB, Imdur, statin, and pursue/address anemia. Call if VT recurs after stabilization of anemia and depleted electrolytes; repeat ischemic eval may be warranted under those circumstances.
[2018-03-19] MEDS ORDERED: Lidocaine -MPF 2% 2 ML VIAL ONE (13:10)
[2018-03-19] MEDS ORDERED: Propofol 500 MG/50 ML INFUS..BTL ONE (13:10)
[2018-03-19] MEDS ORDERED: *HR* Propofol 200 MG/20 ML VIAL IVP ONE (13:24)
[2018-03-19] MEDS: 0.9 % Sodium Chloride 500 ML IVC SCH (14:09)
[2018-03-20] MEDS: Pantoprazole 40 MG VIAL IVP SCH (05:40)
[2018-03-20 05:45] LABS: Basophils % 0.4 %; Eosinophils # 0.1 K/mcL (0.0-0.6); Eosinophils % 1.9 %; Hematocrit 31.3 % (37.5-50.1); Immature Granulocytes % 0.7 % (0-4); Lymphocytes # 1.7 K/mcL (0.6-4.6); Lymphocytes % 22.6 %; Mean Corpuscular HGB Conc 31.9 g/dL (31.6-35.5); Mean Corpuscular Hemoglobin 25.1 pg (28.0-33.3); Mean Corpuscular Volume 78.4 fL (83.0-100.0); Mean Platelet Volume 10.1 fL (9.4-12.4); Monocytes # 0.6 K/mcL (0.0-1.3); Monocytes % 7.5 %; Platelet Count 178 K/mcL (140-400); Red Blood Count 3.99 M/mcL (4.19-5.50); Red Cell Distribution Width 15.9 % (11.5-14.5); Segmented Neutrophils % 66.9 %
[2018-03-20 06:02] LABS: Calcium 8.2 mg/dL (8.6-10.3); Potassium 3.5 mEq/L (3.5-5.1)
[2018-03-20] MEDS ORDERED: *HR* Heparin 10,000 UNIT/10 ML VIAL IV PRN (07:31)
[2018-03-20] MEDS ORDERED: 0.9 % Sodium Chloride 250 ML IVC PRN (07:31)
[2018-03-20] MEDS: Budesonide/Formoterol 160/4.5 MDI IH SCH (07:37)
[2018-03-20] MEDS: Tiotropium 18 MCG inhalation IH SCH (07:38)
[2018-03-20] MEDS ORDERED: 0.9 % Sodium Chloride 1,000 ML PRIME SCH (07:45)
[2018-03-20] MEDS: 0.9 % Sodium Chloride 500 ML IVC SCH ×2 (07:48→12:42)
[2018-03-20] MEDS ORDERED: 0.9 % Sodium Chloride 1,000 ML ONE (07:52)
--- NOTE | 2018-03-20 09:03 | Discharge Summary ---
- NOTES TO OUTPATIENT PROVIDER Notes to Outpatient Provider: Follow up with GI for pathology results Orders not resulted at time of discharge: Pending orders 03/16/18 08:30 Culture,Blood [BC] Routine 03/16/18 08:35 Culture,Blood,Additional [BC] Routine 03/19/18 14:50 Surgical Pathology [PTH] Routine 03/20/18 08:56 Magnesium Routine 03/21/18 04:00 BMP [Basic Metabolic Panel] AM 0400 Basic Metabolic Panel AM 0400 CBC [Complete Blood Count] [HEME] AM 0400 CBC no Diff [Complete Blood Count w/o Diff] [HEME] AM 0400 03/22/18 04:00 BMP [Basic Metabolic Panel] AM 0400 Basic Metabolic Panel AM 0400 CBC [Complete Blood Count] [HEME] AM 0400 CBC no Diff [Complete Blood Count w/o Diff] [HEME] AM 0400 03/23/18 04:00 Basic Metabolic Panel AM 0400 CBC [Complete Blood Count] [HEME] AM 0400 Date of Encounter: 03/20/18 Time of Encounter: 09:00 - Discharge Diagnosis (1) Anemia Priority: Primary Status: Chronic Assessment and Plan: 53 year old male patient with a history of end-stage renal disease on hemodialysis, COPD, coronary artery disease, hypertension, CHF who presented to the ER with complaints of fatigue. He has been going to dialysis as scheduled but was noted to have abnormal labs there. He was told to go to the ER to get further workup done. He had been having diarrhea and was noted to be hyponatremic and hypokalemic. A GI panel was requested which came back negative and his electrolyte abnormalities were corrected with IV fluids and dialysis. He was noted to have a drop in his hemoglobin from 9 to 6.6 over about 3 days during his hospital course. Stool FOBT came back positive. he was seen by GI who did an EGD and colonsocopy. Colonoscopy showed internal hemorrhoids and EGD showed gastritis and duodenitis which were biopsied. He will be discharged on BID protonix. 35 minutes was spent discharging this patient Qualifiers: Anemia type: due to chronic kidney disease Chronic kidney disease stage: on chronic dialysis Qualified Code(s): N18.6 - End stage renal disease; D63.1 - Anemia in chronic kidney disease; Z99.2 - Dependence on renal dialysis (2) ESRD (end stage renal disease) on dialysis Priority: Secondary Status: Chronic (3) Hyponatremia Priority: Secondary Status: Acute (4) Generalized weakness Priority: Secondary Status: Acute (5) Hypokalemia Priority: Secondary Status: Acute (6) Hypomagnesemia Priority: Secondary Status: Acute (7) COPD (chronic obstructive pulmonary disease) Priority: Secondary Status: Chronic Qualifiers: COPD type: unspecified COPD Qualified Code(s): J44.9 - Chronic obstructive pulmonary disease, unspecified (8) Hypophosphatemia Priority: Secondary Status: Chronic (9) CHF (congestive heart failure), NYHA class II Priority: Secondary Status: Acute Qualifiers: Congestive heart failure type: unspecified Qualified Code(s): I50.9 - Heart failure, unspecified Hospital course: Mr. Castro is a 53 year old male - Time Spent with Patient Total time spent providing and/or coordinating discharge services: - Discharge Medications Prescriptions: Magnesium Oxide [Mag-Ox] 800 mg PO DAILY #20 tablet Omeprazole [PriLOSEC] 40 mg PO BIDAC #60 capsule.dr Home Medications: Lidocaine Patch [Lidoderm 5% patch] 1 patch TP DAILY 10/02/15 [History] hydrOXYzine HCl [Hydroxyzine HCl] 25 mg PO TID 10/02/15 [History] Isosorbide MONOnitrate (24 HR) [Imdur] 30 mg PO DAILY #30 tab.er.24h 09/03/16 [ Rx] Ergocalciferol (VITAMIN D2) [Vitamin D2] 50,000 unit PO MO 11/03/16 [History] Lisinopril [Zestril] 10 mg PO DAILY 11/03/16 [History] Simvastatin [Zocor] 40 mg PO HS 11/03/16 [History] Tizanidine HCl [Zanaflex] 4 mg PO TID 11/03/16 [History] Ipratropium/Albuterol Sulfate [Combivent Respimat Inhal [place]] 1 puff IH QID 04/28 [History] Aspirin 81 mg PO DAILY #30 tab.chew 11/24/16 [Rx] Tramadol HCl [Ultram] 50 mg PO TID PRN 05/08/17 [History] Carvedilol 12.5 mg PO BID 07/30/17 [History] Potassium Chloride [K-Tab ER] 20 meq PO DAILY 10/18/17 [History] Sertraline [Zoloft] 50 mg PO DAILY 10/18/17 [History] Albuterol Sulfate [Proair Hfa] 2 puff IH Q4H PRN 30 Days hfa.aer.ad 10/21/17 [ Rx] Albuterol Neb [Proventil Neb] 2.5 mg IH Q6H PRN 03/16/18 [History] Calcium Acetate [Phos-LO] 1,334 mg PO TID 03/16/18 [History] Ferrous Sulfate [Iron] 325 mg PO DAILY 03/16/18 [History] Fluticasone/Vilanterol [Breo Ellipta 100-25 Mcg INH] 1 puff IH DAILY 03/16/18 [ History] Gabapentin [Neurontin] 600 mg PO BID 03/16/18 [History] Ondansetron HCl [Zofran] 4 mg PO BID PRN 03/16/18 [History] Tiotropium [Spiriva] 18 mcg IH DAILY 03/16/18 [History] Magnesium Oxide [Mag-Ox] 800 mg PO DAILY #20 tablet 03/20/18 [Rx] Omeprazole [PriLOSEC] 40 mg PO BIDAC #60 capsule. 03/20/18 [Rx] Allergies/Adverse Reactions: 3 Allergy/AdvReac Type Severity Reaction Status Date / Time bee venom protein (honey bee) AdvReac Swelling Verified 11/05/17 06:11 of Lip/Tongue/Throat potassium AdvReac Vomiting Verified 11/05/17 06:11 prednisone AdvReac Nausea Verified 11/05/17 06:11 Date of admission: 03/15/18 23:56 Primary care physician: Nallely Hanna CNP Consults: 03/16/18 00:48 Consult to [facility] [CONS] Routine Reason for SW Consult: DISCHARGE PLANNING/ COMMUNITY SERVICES INFORMATION 03/16/18 08:30 Consult to Dialysis [CONS] ONCE 03/18/18 05:53 Consult to Cardiology [CONS] Routine Comment: Consulting Provider: Cardiology Suzanne Reason for Consult: 16 beat run of [facility] Time Notified: 05:53 Call Completed: No 03/18/18 07:45 Consult to Dialysis [CONS] ONCE 03/18/18 09:41 Consult to Gastroenterology [CONS] Routine Consulting Provider: Gastroenterology Suzanne Reason for Consult: anemia r/o GI bleed Call Completed: Yes 03/18/18 09:45 Consult to Dialysis [CONS] ONCE 03/20/18 07:45 Consult to Dialysis [CONS] ONCE - Constitutional Vitals: Temp Pulse Resp BP Pulse Ox 98.8 F 84 18 126/71 95 03/20/18 08:31 03/20/18 08:31 03/20/18 08:31 03/20/18 08:31 03/20/18 08:31 General appearance: Present: cooperative, A&O X 3, pleasant, obese, answers questions appropriately - Head Head exam: Present: atraumatic, normocephalic - Eye Eye exam: Present: PERRL, conjuntiva pink, sclera anicteric Pupils: Present: PERRL - Neck Neck exam general surgery: Present: supple, trachea midline. Absent: lymphadenopathy - Respiratory Respiratory exam: Present: CTAB. Absent: accessory muscle use, rales, rhonchi, wheezes - Cardiovascular Cardiovascular exam: Present: RRR, +S1, +S2. Absent: diastolic murmur, gallop, rubs, systolic murmur - GI/Abdominal GI/Abdominal exam: Present: normal bowel sounds, soft, no peritoneal signs. Absent: distended, tenderness - Extremities Exam Extremities exam: Present: warm, radial pulses palpable and symmetrical. Absent : calf tenderness, cyanotic, pedal edema - Neurological Exam Neurological exam: Present: CN II-XII intact, oriented X3, no focal deficits. Absent: pronater drift, facial droop, speech deficit - Skin Skin exam: Present: dry, intact - Patient Status Disposition: Home, Self-Care Condition: Fair - Discharge Instructions Instructions: Omeprazole (By mouth), Magnesium Oxide (By mouth) Follow Up With: Nallely Hanna CNP [Primary Care Provider] - 03/26/18 10:00 am (Please follow up as schedule...) Regan Chaves MD [Partnered Physician] - 03/24/18 4:00 pm (Please follow up as schedule..)
[2018-03-20 09:26] LABS: Magnesium 2.1 mg/dL (1.6-2.6)
[2018-03-20] MEDS: BuPROPion SR (12 HR) 150 MG TABLET PO SCH (09:58)
--- NOTE | 2018-03-20 10:46 | Nephrology Progress Note ---
Date of Encounter: 03/20/18 Time of Encounter: 10:44 - Assessment and Plan (1) ESRD (end stage renal disease) on dialysis Current Visit: Yes Status: Chronic Dialysis indicated today (Friday) for UF and clearance. The UF coupled with the fact that I counseled him for >50% of the encounter to follow a fluid restriction will help with his hypervolemic hyponatremia. His VSS were stable. Subjective Principal diagnosis: abnormal labs Interval history: Pt was s/e while on HD. He did not affirm N/V/D, cramping or other acute changes in his health during the dialysis treatment. Objective - Vital Signs Vital signs: Vital Signs Temp Pulse Resp BP Pulse Ox 03/20/18 08:31 98.8 F 84 18 126/71 95 03/20/18 04:39 98.8 F 81 17 172/99 98 03/19/18 23:03 98.7 F 81 16 159/79 96 03/19/18 22:40 95 03/19/18 19:46 18 95 03/19/18 19:27 98.8 F 71 17 147/76 97 03/19/18 16:15 97.8 F 66 14 170/89 96 03/19/18 16:00 97.8 F 65 14 169/88 95 03/19/18 15:42 97.8 F 69 14 157/78 96 03/19/18 15:27 97.9 F 68 14 152/77 96 03/19/18 14:06 71 18 175/98 96 03/19/18 11:19 98.4 F 72 18 139/73 97 Intake and Output 03/19/18 03/20/18 03/20/18 23:59 07:59 15:59 Other: # Voids 1 # Bowel Movements 1 Weight 77.2 kg Patient Weight 03/20/18 23:59 Weight 77.2 kg - General Appearance General appearance: Present: well-developed, well-nourished, appears started age EENT: Present: ATNC, PERRL, mucous membranes moist Additional Comments: Facial edema Neck: Present: supple Respiratory: Present: clear Cardiology: Present: edema (minimal to trace ankle edema (with wrinkles noted b/ l)), normal S1, normal S2 Dialysis Vascular Access: Venous Catheter (Left sided Permacath was C/D/I) Gastrointestinal: Present: normoactive bowel sounds, no tenderness, no guarding Integumentary: Present: warm and dry Neurologic: Present: no focal deficit, no asterixis, alert and oriented x3 Musculoskeletal: Present: no cyanosis, no clubbing Psychiatric: Present: cooperative - Lab 03/20/18 04:41 03/20/18 04:41 Most recent lab results Calcium 8.2 mg/dL (8.6-10.3) L 03/20/18 04:41 Phosphorus 1.4 mg/dL (2.7-4.5) L 03/19/18 05:26 Magnesium 2.1 mg/dL (1.6-2.6) 03/20/18 04:41 - VTE Documentation of Mechanical Device: Intermittent pneumatic compression device Consult Discharge Plan - Plan Instructions: Omeprazole (By mouth), Magnesium Oxide (By mouth) Referrals: Nallely Hanna CNP [Primary Care Provider] - 03/26/18 10:00 am (Please follow up as schedule...) Regan Chaves MD [Partnered Physician] - 03/24/18 4:00 pm (Please follow up as schedule..) Prescriptions: Magnesium Oxide [Mag-Ox] 800 mg PO DAILY #20 tablet Omeprazole [PriLOSEC] 40 mg PO BIDAC #60 capsule.
--- NOTE | 2018-03-20 12:21 | Physician Discharge Referral ---
Home Health/Hosp Referral Info Transfer to: Home Health - Diagnosis (1) Anemia Priority: Primary Status: Chronic (2) ESRD (end stage renal disease) on dialysis Status: Chronic (3) Hyponatremia Status: Acute (4) Generalized weakness Status: Acute (5) Hypokalemia Status: Acute (6) Hypomagnesemia Status: Acute (7) COPD (chronic obstructive pulmonary disease) Status: Chronic (8) Hypophosphatemia Status: Chronic (9) CHF (congestive heart failure), NYHA class II Status: Acute - Respiratory Orders Smoking Cessation: Smoking cessation has been advised. For more information, call the [place] Tobacco Quit Line at 6-956-FWNR-NOW. - Diet/Nutrition Diet/Nutrition Orders: Renal - Activity Activity Orders: Ambulate - Services Needed Following services are medically necessary services: Nursing, Home Health Aide, Physical Therapy - Transfer Medications Prescriptions: Magnesium Oxide [Mag-Ox] 800 mg PO DAILY #20 tablet Omeprazole [PriLOSEC] 40 mg PO BIDAC #60 capsule.dr Home Medications: Lidocaine Patch [Lidoderm 5% patch] 1 patch TP DAILY 10/02/15 [History] hydrOXYzine HCl [Hydroxyzine HCl] 25 mg PO TID 10/02/15 [History] Isosorbide MONOnitrate (24 HR) [Imdur] 30 mg PO DAILY #30 tab.er.24h 09/03/16 [ Rx] Ergocalciferol (VITAMIN D2) [Vitamin D2] 50,000 unit PO MO 11/03/16 [History] Lisinopril [Zestril] 10 mg PO DAILY 11/03/16 [History] Simvastatin [Zocor] 40 mg PO HS 11/03/16 [History] Tizanidine HCl [Zanaflex] 4 mg PO TID 11/03/16 [History] Ipratropium/Albuterol Sulfate [Combivent Respimat Inhal [place]] 1 puff IH QID 04/28 [History] Aspirin 81 mg PO DAILY #30 tab.chew 11/24/16 [Rx] Tramadol HCl [Ultram] 50 mg PO TID PRN 05/08/17 [History] Carvedilol 12.5 mg PO BID 07/30/17 [History] Potassium Chloride [K-Tab ER] 20 meq PO DAILY 10/18/17 [History] Sertraline [Zoloft] 50 mg PO DAILY 10/18/17 [History] Albuterol Sulfate [Proair Hfa] 2 puff IH Q4H PRN 30 Days hfa.aer.ad 10/21/17 [ Rx] Albuterol Neb [Proventil Neb] 2.5 mg IH Q6H PRN 03/16/18 [History] Calcium Acetate [Phos-LO] 1,334 mg PO TID 03/16/18 [History] Ferrous Sulfate [Iron] 325 mg PO DAILY 03/16/18 [History] Fluticasone/Vilanterol [Breo Ellipta 100-25 Mcg INH] 1 puff IH DAILY 03/16/18 [ History] Gabapentin [Neurontin] 600 mg PO BID 03/16/18 [History] Ondansetron HCl [Zofran] 4 mg PO BID PRN 03/16/18 [History] Tiotropium [Spiriva] 18 mcg IH DAILY 03/16/18 [History] Magnesium Oxide [Mag-Ox] 800 mg PO DAILY #20 tablet 03/20/18 [Rx] Omeprazole [PriLOSEC] 40 mg PO BIDAC #60 capsule. 03/20/18 [Rx] Allergies/Adverse Reactions: 3 Allergy/AdvReac Type Severity Reaction Status Date / Time bee venom protein (honey bee) AdvReac Swelling Verified 11/05/17 06:11 of Lip/Tongue/Throat potassium AdvReac Vomiting Verified 11/05/17 06:11 prednisone AdvReac Nausea Verified 11/05/17 06:11 Certification: Further, I certify that my clinical findings support that this patient is homebound (i.e. absences from home require considerable and taxing effort and are for medical reasons or zoroastrianism services or infrequently or short duration when for other reasons) because: Homebound Reason: Patient requires assistance of a person or device to safely leave home Attestation: My signature below is to certify that this patient is under my care and that I, or nurse practitioner, or a physician's traffic assistant working with me, has a face-to -face encounter with this patient.
[2018-03-20 12:36] VITALS: BP 176/85
[2018-03-20] MEDS: Magnesium Oxide 400 MG TABLET PO SCH (12:39)
[2018-03-20] MEDS: Isosorbide MONOnitrate (24 HR) 30 MG TAB.ER.24H PO SCH (12:39)
== END 2018-03-20 14:40 | disposition home or self-care (01) ==
LOC: EMEROO 17:41 → 2SOUTHHOLD 17:41 → 2ANU 03-17 06:39
PROVIDERS: ADMIT Internal Medicine; ATTEND Internal Medicine
PROC: ENDOEBX (2018-03-19 17:30)